=== PATIENT | male | born 1955 | race Caucasian/White ===

== ENCOUNTER 2024-06-25 20:44 | Inpatient (IN) | payer MEDICARE, MEDICAID, SELFPAY ==
--- NOTE | 2024-06-25 | ECG_ITS ---
Test Reason : TACHYCARDIA Blood Pressure : */* mmHG Vent. Rate : 138 BPM Atrial Rate : 136 BPM P-R Int : 168 ms QRS Dur : 86 ms QT Int : 404 ms P-R-T Axes : 43 34 60 degrees QTcB Int : 612 ms Undetermined rhythm , lot of artifact Not suitable for interpretation When compared with ECG of 23-May-2012 04:19, Poor data quality in current ECG precludes serial comparison Referred By: Erasto Sena Electronically Signed By: ASCENCION HOPSON
--- NOTE | ~2024-06-25 | XR_ITS ---
CLINICAL HISTORY: cough fever 1 view chest x-ray. Comparison: None Findings: There is pulmonary hypoinflation with bronchovascular crowding, mildly limiting this examination. Minimal left basilar opacities are present with minimal blunting of the left costophrenic angle. No focal consolidation identified within the right lung. No pneumothorax. No significant right pleural effusion identified. Heart size appears to be normal. The cardiac silhouette is obscured by the bilateral diaphragms related to the low lung volumes. Impression: 1. Pulmonary hypoinflation with bronchovascular crowding, limiting this examination. Minimal left basilar atelectasis versus infiltrates appear to be present with a possible small left pleural effusion. This document has been electronically signed by: Ze Sood MD on 06/25/2024 22:24:51
--- NOTE | ~2024-06-25 | CT_ITS ---
CLINICAL HISTORY: Coffee ground emesis, fever CT abdomen and pelvis without contrast Comparison: None Findings: This examination is mildly degraded by artifact related to the patient's arms, motion, structures external to the patient, and the patient's posterior spinal fusion hardware. Minimal nonspecific bibasilar pulmonary opacities visualized. Coronary artery calcifications and/or coronary artery stents are in place. Large volume ascites and edema present throughout the abdomen, limiting evaluation for acute inflammatory processes. The liver appears nodular in contour, consistent with cirrhosis. The gallbladder is surgically absent. Mild pneumobilia present. Spleen is at the upper limits of normal for size. The pancreas and bilateral adrenal glands are unremarkable in appearance. Calcifications are identified near the renal gisella bilaterally which may represent vascular calcifications. No hydronephrosis identified. No bowel obstruction. No free intraperitoneal air identified. Mildly limited evaluation of the bowel on this examination given the lack of IV contrast, adjacent fluid, and bowel underdistention. Colonic diverticulosis present. There is diffuse body wall edema. A Smith catheter is in place within the bladder lumen. Bladder is underdistended, limiting its evaluation. Small focus of gas present within the bladder lumen, likely related to the Smith catheter. Scattered calcifications are identified of the expected location of the prostate gland. Nonvisualization of the appendix. No acute fracture visualized. Posterior spinal fusion hardware in place of the L3 through S1 vertebral levels. IMPRESSION: 1. Mildly limited examination as described above. There is cirrhosis with generalized 3rd spacing of fluid, including large volume ascites and edema throughout the intra-abdominal compartment and body wall soft tissues. These findings limit evaluation for acute inflammatory processes. 2. Colonic diverticulosis. 3. Mild pneumobilia, possibly related to recent intervention or prior sphincterotomy. Alternatively, infection may produce a similar appearance. Clinical correlation is advised. This document has been electronically signed by: Ze Sood MD on 06/26/2024 00:18:16
[2024-06-25 20:53] VITALS: BP 135/77; BP 94/39; PULSE 130; PULSE 133; RESP 45; O2SAT 92; O2SAT 98; BMI 26.8
[2024-06-25 21:04] VITALS: TEMP 39.5
--- NOTE | 2024-06-25 21:06 | ED.AMS ---
HPI - Altered Mental Status General Chief Complaint: Altered Mental Status Stated Complaint: sepsis alert, AMS, Fast HR, Warm to tocuch Time Seen by Provider: 06/25/24 21:05 History of Present Illness ED Provider: Alli Reyes MD HPI narrative: [age] male [facility] from [facility] with fever altered mentation sounds ago abrupt onset. He had been vomiting and my nurse tells me upon arrival he required nasal cannula oxygen supplementation he does not normally use this. Temp 103.1 degrees tachy 122. History limited from the patient secondary to mental status possible underlying cognitive impairment. Related Data Home Medications ?Medication ?Instructions ?Recorded ?Confirmed acetaminophen 325 mg tablet 650 mg PO Q6H PRN Fever Or Pain 06/26/24 06/26/24 apixaban 5 mg tablet 5 mg PO BID 06/26/24 06/26/24 atorvastatin 10 mg tablet 10 mg PO DAILY 06/26/24 06/26/24 baclofen 5 mg tablet 5 mg PO TID 06/26/24 06/26/24 bisacodyl 10 mg rectal suppository 10 mg MA DAILY PRN Constipation 06/26/24 06/26/24 cholestyramine (with sugar) 4 gram 4 g PO DAILY 06/26/24 06/26/24 oral powder dextrose 40 % oral gel (Glucose 10 g PO Q15M PRN Hypoglycemia 06/26/24 06/26/24 Gel) escitalopram oxalate 20 mg tablet 20 mg PO DAILY 06/26/24 06/26/24 (Lexapro) finasteride 5 mg tablet 5 mg PO DAILY 06/26/24 06/26/24 folic acid 1 mg tablet 1 mg PO DAILY 06/26/24 06/26/24 gabapentin 100 mg capsule 200 mg PO BID 06/26/24 06/26/24 glucagon 1 mg solution for 1 mg subcut Q20M PRN Hypoglycemia 06/26/24 06/26/24 injection lactulose 10 gram/15 mL oral 10 g PO Q12H PRN Constipation 06/26/24 06/26/24 solution magnesium hydroxide 400 mg/5 mL 30 ml PO DAILY PRN Constipation 06/26/24 06/26/24 oral suspension (Milk of Magnesia) magnesium oxide 400 mg PO DAILY 06/26/24 06/26/24 metformin 850 mg tablet 850 mg PO BIDWM 06/26/24 06/26/24 midodrine 10 mg tablet 10 mg PO TIDWM 06/26/24 06/26/24 mirtazapine 15 mg tablet (Remeron) 22.5 mg PO BEDTIME 06/26/24 06/26/24 multivitamin 1 tab PO DAILY 06/26/24 06/26/24 pantoprazole 20 mg tablet,delayed 20 mg PO DAILY@0630 06/26/24 06/26/24 release polyvinyl alcohol 1.4 % eye drops 1 drp ophthalmic (eye) QID 06/26/24 06/26/24 sodium phosphates 19 gram-7 118 ml MA DAILY PRN Constipation 06/26/24 06/26/24 gram/118 mL enema (Fleet Enema) tamsulosin 0.4 mg capsule (Flomax) 0.8 mg PO BEDTIME 06/26/24 06/26/24 wound dressings (Triad Wound 1 appl topical TID 06/26/24 06/26/24 Dressing paste) Allergies Allergy/AdvReac Type Severity Reaction Status Date / Time No Known Allergies Allergy Unverified 06/25/24 20:58 [facility] Past Medical History Medical History Chronic indwelling Smith catheter Cirrhosis of liver with ascites Hepatitis C Social History Social History Household Members: Unknown / Unable to assess Alcohol intake: former Patient Tobacco Use Status: Tobacco use Unknown service: No Physical Exam ED Vital Signs: Vital Signs - 24 hr 06/25/24 22:28 06/25/24 22:43 Temperature 99.8 F Pulse Rate 121 H 119 H Respiratory Rate 28 H Blood Pressure 104/56 L 107/56 L Pulse Oximetry 95 95 Oxygen Delivery Method Room Air Room Air BMI result Body Mass Index 26.8 Const Other: EXAM: Gen: alert, pale chronically ill-appearing dried vomitus around the mouth. hemiparesis right side occasional tremor and spastic paresis Head: Atraumatic Eyes: Anicteric, Normal conjunctiva. ENT: Dry oral mucosa, pale Neck: Supple. Respiratory: mild tachypnea rate around 30No distress.Clear to auscultation bilaterally, symmetric chest expansion, No wheeze, rales, ronchi. Cardiovascular: Regular rate and rhythm. No murmurs or rub. Well perfused periphery, warm extremities. No edema. Abdominal: surgical scars remote appearing, significant abdominal distention and positive fluid wave tender with palpation. No bruising No palpable masses or obvious organomegaly. no guarding, no rebound tenderness or other peritoneal findings. Neuro: Alert. Gross movement of all extremities intact. Vital signs: See flowsheet Medications Administered Generic Name Dose Route Start Last Admin Trade Name Freq PRN Reason Stop Dose Admin Apixaban 5 mg 06/26/24 09:00 06/26/24 10:58 Apixaban 5 Mg Tablet PO 5 mg BID LOTTIE Administration Finasteride 5 mg 06/26/24 09:00 06/26/24 10:58 Finasteride 5 Mg Tablet PO 5 mg DAILY LOTTIE Administration Lactated Ringer's 1,000 mls @ 100 mls/hr 06/25/24 23:45 06/26/24 10:58 Lr IVCONT 100 mls/hr .Q10H LOTTIE Administration Piperacillin Sod/Tazobactam 50 mls @ 100 mls/hr 06/26/24 06:00 06/26/24 18:38 Sod 2.25 gm/ Sodium Chloride IV Infused Q6H LOTTIE Infusion Lactulose 20 gm 06/26/24 09:00 06/26/24 10:58 Lactulose 20 Gm/30 Ml Solution PO 20 gm BID LOTTIE Administration Midodrine 10 mg 06/26/24 09:00 06/26/24 16:40 Midodrine Hcl 10 Mg Tablet PO 10 mg TID LOTTIE Administration Pantoprazole Sodium 40 mg 06/26/24 16:30 06/26/24 16:40 Pantoprazole Sodium 40 Mg/10 Ml Vial IVPUSH 40 mg BID@0630,1630 LOTTIE Administration Sodium Chloride 3 ml 06/26/24 00:00 06/26/24 16:41 0.9 % Sodium Chloride Flush 3 Ml Syringe IVFLUSH Not Given QSHIFT LOTTIE Discontinued Medications Generic Name Dose Route Start Last Admin Trade Name Darciq PRN Reason Stop Dose Admin Heparin Sodium (Porcine) 5,000 unit 06/25/24 23:45 06/26/24 01:36 Heparin Sodium,Porcine 5,000 Unit/Ml Vial SUBCUT 5,000 unit Q12H LOTTIE Administration Piperacillin Sod/Tazobactam 50 mls @ 100 mls/hr 06/25/24 21:05 02/01/25 22:27 Sod 3.375 gm/ Sodium Chloride IV 06/25/24 21:34 Infused ONCE ONE Infusion Vancomycin HCl 1,500 mg/ 500 mls @ 333.333 mls/hr 06/25/24 21:05 06/25/24 23:40 Sodium Chloride IV 06/25/24 22:34 Infused ONCE ONE Infusion Sodium Chloride 2,400 mls @ 2,400 mls/hr 06/25/24 21:05 06/25/24 22:20 Ns 30 ml/kg infuse over 1 hr (2400 ml) 06/25/24 22:04 Infused IV Infusion .Q1H STA Acetaminophen 1,000 mg in 100 mls @ 400 mls/hr 06/25/24 21:44 06/25/24 22:28 Ofirmev IV 06/25/24 21:58 Infused ONCE ONE Infusion Sodium Chloride 1,000 mls @ 999 mls/hr 06/26/24 00:45 06/26/24 02:33 Ns IV 06/26/24 01:45 Infused .Q1H1M LOTTIE Infusion Albumin Human 100 mls @ 100 mls/hr 06/26/24 08:00 06/26/24 11:13 Kedbumin 25 % IV 06/26/24 09:59 Infused Q1H LOTTIE Infusion Lidocaine/Epinephrine 10 ml 06/25/24 21:26 06/25/24 21:46 Lidocaine Hcl 1%/Epi 1:100,000 10 Ml Vial INFILTRATI 06/25/24 21:27 10 ml ONCE ONE Administration Pantoprazole Sodium 80 mg 06/25/24 21:59 06/25/24 22:04 Pantoprazole Sodium 40 Mg/10 Ml Vial IVPUSH 06/25/24 22:00 80 mg ONCE ONE Administration Sodium Zirconium Cyclosilicate 5 gm 06/26/24 00:01 06/26/24 00:34 Sodium Zirconium Cyclosilicate 5 Gm Powd.Pack PO 06/26/24 00:02 5 gm ONCE ONE Administration Medical Decision Making Medical Decision Making MDM Narrative: 68 male with hep C, cirrhosis sent from [facility] for vomiting episode after which he apparently appeared slightly altered transiently but he has returned to his baseline of oriented x3. 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 He is febrile tachypneic. Tachypnea has improved after paracentesis which we did not only to relieve mild tachypnea but also for diagnostic purposes in the setting of severe sepsis. Lactate is 5.3 this could be secondary to severe sepsis and/or lack of hepatic clearance given this cirrhosis. Broad-spectrum antibiotics initiated, 30 cc/kg fluid bolus initiated. Indwelling Smith appears chronic sniff RN feels this is been a longstanding chronic Smith there appears to be sediment in the urine I feel this is likely cause. Chest x-ray no focal infiltrates low lung volumes probably secondary to the ascites. [place] culture Admission/Observation Consideration of admission/observation: Escalation of care including admission/observation considered Consult Healthcare Provider Management of the patient was discussed with: Hospitalist Lab Data MDM Lab Attestation statement: I reviewed the patient's lab results. 06/26/24 04:33 06/26/24 04:33 Labs: Lab Results 06/25/24 06/25/24 06/25/24 Range/Units 21:04 21:10 22:22 WBC 15.6 H (4.8-10.8) X10*3/uL RBC 3.15 L (4.60-5.80) X10*6/uL Hgb 8.8 L (14.0-18.0) g/dl Hct 27.7 L (42.0-52.0) % MCV 87.9 (80.0-98.0) fL MCH 27.9 (27.0-33.0) pg MCHC 31.8 (31.0-36.0) g/dl RDW 16.3 H (11.0-16.0) % Plt Count 242 (160-400) X10*3/uL MPV 9.7 (9.4-12.4) fL Immature Gran % (Auto) 0.8 H (0.0-0.4) % Neut % (Auto) 88.2 H (45-73) % Lymph % (Auto) 4.4 L (20-40) % Hood % (Auto) 5.1 (2-11) % Eos % (Auto) 1.2 (0-4) % Baso % (Auto) 0.3 (0-2) % Lymph # (Auto) 0.7 L (1.2-4.9) X10*3/uL Hood # (Auto) 0.8 (0.1-1.2) X10*3/uL Eos # (Auto) 0.2 (0.0-0.4) X10*3/uL Baso # (Auto) 0.0 (0.0-0.2) X10*3/uL Abs Immat Gran (auto) 0.13 H (0.00-0.03) X10*3/uL Absolute Neuts (auto) 13.8 H (2.0-8.3) x10*3/uL Absolute Nucleated RBC 0.000 (0.0-0.012) X10*3/uL Nucleated RBC % (auto) 0.0 (0.0-0.2) /100WBC Sodium 137 (135-145) mmol/L Potassium 5.5 H (3.3-5.1) mmol/L Chloride 107 (96-108) mmol/L Carbon Dioxide 16 L (22-29) mmol/L Anion Gap 20 (12-20) BUN 48 H (9-16) mg/dL Creatinine 1.61 H (0.5-1.4) mg/dL Estim Creat Clear Calc 42.4 Estimated GFR 43 Random Glucose 163 H (60-115) mg/dL Lactic Acid 5.3 H* (0.5-2.0) mmol/L Calcium 8.7 (8.4-10.2) mg/dL Total Bilirubin 0.3 (0.0-1.0) mg/dL AST 31 (5-37) U/L ALT 14 (0-40) U/L Alkaline Phosphatase 65 (39-117) U/L B-Natriuretic Peptide 286 H (<100) pg/mL Total Protein 6.9 (6.5-8.0) g/dL Albumin 2.7 L (3.5-5.0) g/dL Urine Color Yellow Urine Appearance Turbid Urine pH TNP Ur Specific [place] TNP Urine Protein TNP Urine Glucose (UA) TNP Urine Ketones TNP Urine Blood TNP Urine Nitrite TNP Ur Leukocyte Esterase TNP Urine RBC 11-20 H (0-2) /HPF Urine WBC 6-10 H (0-5) /HPF Ur Squamous Epith Cells 0-2 (0-2) /HPF Other Crystals Present Urine Bacteria 4+ (None Seen) Hyaline Casts 0-2 (0-2) /LPF Peritoneal WBC 0.103 X10*3/uL Peritoneal RBC < 0.002 X10*6/uL Periton Neutrophils 1 % Periton Lymphocytes 35 % Peritoneal Monocytes 12 % Peritoneal Other Cells 52 % Influenza Type A (PCR) NEGATIVE (Negative) Influenza Type B (PCR) NEGATIVE (Negative) RSV RNA Qual (PCR) NEGATIVE (Negative) SARS-CoV-2 RNA (RT-PCR) NEGATIVE (Negative) Independent Interpretation I performed an independent interpretation of an: EKG and Plain X-Ray ( low lung volumes no infiltrate no effusion) Interpretation: limited assessment of the ECG due to severe tremor and tachycardia this can be repeated Radiology Impression Discussion of test interpretation with radiology: I have reviewed the radiologist's reading. Independent Historian Clinical information obtained from an independent historian. History obtained from or confirmed by: Other ( [facility] nurse, paperwork from [facility] facility) Chronic Conditions Patient?s care impacted by: Other ( liver disease, stroke) Procedures Procedure Narrative Procedure Narrative: EMERGENCY ULTRASOUND INTERPRETATION-Point of Care Trauma (FAST) Limited AbdominalChest Ultrasound [This study was ordered, performed, and interpreted by myself. The study reveals: Impression: -Peritoneum: NO FREE FLUID -Pleural space: no B linesPOSITIVE LUNG SLIDING, NOT CONSISTENT WITH PNEUMOTHORAX.] [Indication: sepsis and suspected anasarca Fluid (FAST Views): -Hepatorenal: positive -Perisplenic: positive -Retrovesical/Pelvic: positive Other views: -Right Pleural 2ICS: POSITIVE SLIDING no B lines -Left Pleural 2ICS: POSITIVE SLIDING no B lines Performed by: Alli Reyes MD Images were stored on EMR through [employer] image archive software. CPT: 64450,96733] Critical Care Time Critical Care Time Attestation: ED Critical Care: 45 Authorized and Performed by: Alli Reyes MD Total critical care time: Approximately 80 Due to a high probability of clinically significant, life threatening deterioration, the patient required my highest level of preparedness to intervene emergently and I personally spent this critical care time directly and personally managing the patient. This critical care time included obtaining a history; examining the patient; pulse oximetry; ordering and review of studies; arranging urgent treatment with development of a management plan; evaluation of patient's response to treatment; frequent reassessment; and, discussions with other providers. This critical care time was performed to assess and manage the high probability of imminent, life-threatening deterioration that could result in multi-organ failure. It was exclusive of separately billable procedures and treating other patients and teaching time. Discharge Plan Discharge Clinical Impression: UTI (urinary tract infection) Patient Disposition: Admitted As Inpatient Interventions: Admission Worksheet (ED) Last Done: 06/26/24 07:27 Discharge Date/Time: 06/26/24 08:03
[2024-06-25 21:10] LABS: MANUAL DIFF FLAG NO
--- NOTE | 2024-06-25 21:15 | PC.NURSE ---
provder at bed side, doing abd taping, abouts 4000cc drained
--- OUTSIDE RECORDS SUMMARY | 2024-06-25 21:16 | XMS_ITS | Encounter Summary ---
Author Organization [facility] Address [address] [place] [address] Care Team Providers Care Dairy Consultant Name Role Phone Priscilla Doan MD Primary Care Provider + Encounter Details Date Type Department Care Team (Late st Contact Info) Description 06/18/2024 Lab Requisition [facility] - Main Lab [address] [place] [address] Priscilla Doan MD [address] [address] Unspecified viral hepatitis C 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 Social History Tobacco Use Types Packs/Day Years Used Date Smoking Tobacco: Never Assessed Sex and Gender Information Value Date Recorded Sex Assigned at Not on file Gender Identity Not on file Sexual Orientation Not on file documented as of this encounter Plan of Treatment Not on file documented as of this encounter Procedures Procedure Name Priority Date/Time Associated Diagnosis Comments COMPLETE BLOOD COUNT Routine 06/20/2024 7:40 AM EST Unspecified viral hepatitis C 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 COMPREHENSIVE METABOLIC PANEL Routine 06/20/2024 7:40 AM EST Unspecified viral hepatitis C 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 documented in this encounter Results * (ABNORMAL) Comprehensive metabolic panel (06/20/2024 7:40 AM EST) Sodium 135 133 - 145 mmol/L LAB CHEMISTRY METHOD 06/20/2024 2:17 PM EST [facility] Potassium 5.1 3.5 - 5.5 mmol/L LAB CHEMISTRY METHOD 06/20/2024 2:17 PM EST [facility] Chloride 104 96 - 110 mmol/L LAB CHEMISTRY METHOD 06/20/2024 2:17 PM EST [facility] CO2 23 21 - 32 mmol/L LAB CHEMISTRY METHOD 06/20/2024 2:17 PM [facility] Anion Gap 8 3 - 11 LAB CHEMISTRY METHOD 06/20/2024 2:17 PM [facility] Glucose 84 70 - 100 mg/dL LAB CHEMISTRY METHOD 06/20/2024 2:17 PM [facility] BUN 42(H) 5 - 25 mg/dL LAB CHEMISTRY METHOD 06/20/2024 2:17 PM [facility] Creatinine 1.27 0.70 - 1.30 mg/dL LAB CHEMISTRY METHOD 06/20/2024 2:17 PM [facility] eGFR 62 >=60 mL/min/1. 73m2 LAB CHEMISTRY METHOD 06/20/2024 2:17 PM [facility] Comment:Calculation based on the??Chronic Kidney Disease Epidemiology Collaboration (CKD-EPI) equation refit??without adjustment for race. BUN/Creatinine Ratio 33.1 LAB CHEMISTRY METHOD 06/20/2024 2:17 PM [facility] Calcium 8.7 8.5 - 10.5 mg/dL LAB CHEMISTRY METHOD 06/20/2024 2:17 PM [facility] AST (SGOT) 24 10 - 42 unit/L LAB CHEMISTRY METHOD 06/20/2024 2:17 PM [facility] ALT (SGPT) 25 10 - 60 unit/L LAB CHEMISTRY METHOD 06/20/2024 2:17 PM [facility] Alkaline Phosphatase 78 42 - 121 unit/L LAB CHEMISTRY METHOD 06/20/2024 2:17 PM [facility] Total Protein 5.8(L) 6.0 - 8.0 g/dL LAB CHEMISTRY METHOD 06/20/2024 2:17 PM [facility] Albumin 2.0(L) 3.2 - 5.0 g/dL LAB CHEMISTRY METHOD 06/20/2024 2:17 PM [facility] Total Bilirubin 0.3 0.0 - 1.4 mg/dL LAB CHEMISTRY METHOD 06/20/2024 2:17 PM EST [facility] Blood Venous blood specimen / Unknown Venipuncture / Unknown 06/20/2024 7:40 AM EST 06/20/2024 12:03 PM EST Priscilla Doan MD LAB BLOOD ORDERA BLES [facility] [address] [place] [address], * (ABNORMAL) Complete blood count (06/20/2024 7:40 AM EST) WBC 6.2 4.8 - 10.8 K/mcL LAB HEMETOLOGY METHOD 06/20/2024 1:18 PM [facility] RBC 3.20(L) 4.50 - 5.50 M/mcL LAB HEMETOLOGY METHOD 06/20/2024 1:18 PM [facility] Hemoglobin 8.7(L) 13.5 - 17.5 g/dL LAB HEMETOLOGY METHOD 06/20/2024 1:18 PM [facility] Hematocrit 28.8(L) 42.0 - 54.0 % LAB HEMETOLOGY METHOD 06/20/2024 1:18 PM [facility] MCV 91.1 79.0 - 98.0 FL LAB HEMETOLOGY METHOD 06/20/2024 1:18 PM [facility] MCH 27.5 27.0 - 32.0 pcg LAB HEMETOLOGY METHOD 06/20/2024 1:18 PM [facility] MCHC 30.2(L) 32.0 - 37.0 g/dL LAB HEMETOLOGY METHOD 06/20/2024 1:18 PM [facility] RDW 16.2(H) 11.0 - 15.0 % LAB HEMETOLOGY METHOD 06/20/2024 1:18 PM EST [facility] Platelets 252 130 - 400 K/mcL LAB HEMETOLOGY METHOD 06/20/2024 1:18 PM EST [facility] MPV 10.1 7.0 - 11.0 FL LAB HEMETOLOGY METHOD 06/20/2024 1:18 PM EST [facility] NRBC 0.0 <1.0 % LAB HEMETOLOGY METHOD 06/20/2024 1:18 PM EST [facility] NRBC Absolute 0.00 <0.10 K/mcL LAB HEMETOLOGY METHOD 06/20/2024 1:18 PM EST [facility] Blood Venous blood specimen / Unknown Venipuncture / Unknown 06/20/2024 7:40 AM EST 06/20/2024 12:03 PM EST Priscilla Doan MD LAB BLOOD ORDERA BLES [facility] [address] [place] [address], documented in this encounter Visit Diagnoses Diagnosis Unspecified viral hepatitis C 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 documented in this encounter Care Teams Dairy Consultant Relationship Specialty Start Date End Date Priscilla Doan MD [address] [place] [id number] PCP - General Family Medicine 06/18/24 documented as of this encounter
--- OUTSIDE RECORDS SUMMARY | 2024-06-25 21:16 | XMS_ITS | Encounter Summary ---
Author Organization [facility] Address [address] [place] [address] Care Team Providers Care Assistant Administrator Name Role Phone Priscilla Doan MD Primary Care Provider + Encounter Details Date Type Department Care Team (Late st Contact Info) Description 06/10/2024 Lab Requisition [facility] - Main Lab [address] [place] [address] Priscilla Doan MD [address] [address] Unspecified viral hepatitis C 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 [...] Associated Diagnosis Comments COMPLETE BLOOD COUNT Routine 06/13/2024 9:56 AM EST Unspecified viral hepatitis C 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 COMPREHENSIVE METABOLIC PANEL Routine 06/13/2024 9:56 AM EST Unspecified viral hepatitis C 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 documented in this encounter Results * (ABNORMAL) Comprehensive metabolic panel (06/13/2024 9:56 AM EST) Sodium 136 133 - 145 mmol/L LAB CHEMISTRY METHOD 06/13/2024 2:19 PM EST [facility] Potassium 5.0 3.5 - 5.5 mmol/L LAB CHEMISTRY METHOD 06/13/2024 2:19 PM EST [facility] Chloride 104 96 - 110 mmol/L LAB CHEMISTRY METHOD 06/13/2024 2:19 PM EST [facility] CO2 25 21 - 32 mmol/L LAB CHEMISTRY METHOD 06/13/2024 2:19 PM [facility] Anion Gap 7 3 - 11 LAB CHEMISTRY METHOD 06/13/2024 2:19 PM [facility] Glucose 96 70 - 100 mg/dL LAB CHEMISTRY METHOD 06/13/2024 2:19 PM [facility] BUN 39(H) 5 - 25 mg/dL LAB CHEMISTRY METHOD 06/13/2024 2:19 PM [facility] Creatinine 1.42(H) 0.70 - 1.30 mg/dL LAB CHEMISTRY METHOD 06/13/2024 2:19 PM [facility] eGFR 54(L) >=60 mL/min/1. 73m2 LAB CHEMISTRY METHOD 06/13/2024 2:19 PM [facility] Comment:Calculation based on the??Chronic Kidney Disease Epidemiology Collaboration (CKD-EPI) equation refit??without adjustment for race. BUN/Creatinine Ratio 27.5 LAB CHEMISTRY METHOD 06/13/2024 2:19 PM [facility] Calcium 9.1 8.5 - 10.5 mg/dL LAB CHEMISTRY METHOD 06/13/2024 2:19 PM [facility] AST (SGOT) 65(H) 10 - 42 unit/L LAB CHEMISTRY METHOD 06/13/2024 2:19 PM [facility] ALT (SGPT) 69(H) 10 - 60 unit/L LAB CHEMISTRY METHOD 06/13/2024 2:19 PM [facility] Alkaline Phosphatase 140(H) 42 - 121 unit/L LAB CHEMISTRY METHOD 06/13/2024 2:19 PM [facility] Total Protein 5.9(L) 6.0 - 8.0 g/dL LAB CHEMISTRY METHOD 06/13/2024 2:19 PM [facility] Albumin 2.0(L) 3.2 - 5.0 g/dL LAB CHEMISTRY METHOD 06/13/2024 2:19 PM [facility] Total Bilirubin 0.3 0.0 - 1.4 mg/dL LAB CHEMISTRY METHOD 06/13/2024 2:19 PM [facility] Blood Venous blood specimen / Unknown Venipuncture / Unknown 06/13/2024 9:56 AM EST 06/13/2024 12:25 PM EST Priscilla Doan MD LAB BLOOD ORDERA BLES [facility] [address] [place] [address], * (ABNORMAL) Complete blood count (06/13/2024 9:56 AM EST) WBC 6.1 4.8 - 10.8 K/mcL LAB HEMETOLOGY METHOD 06/13/2024 1:31 PM [facility] RBC 3.40(L) 4.50 - 5.50 M/mcL LAB HEMETOLOGY METHOD 06/13/2024 1:31 PM [facility] Hemoglobin 9.3(L) 13.5 - 17.5 g/dL LAB HEMETOLOGY METHOD 06/13/2024 1:31 PM [facility] Hematocrit 30.0(L) 42.0 - 54.0 % LAB HEMETOLOGY METHOD 06/13/2024 1:31 PM [facility] MCV 88.8 79.0 - 98.0 FL LAB HEMETOLOGY METHOD 06/13/2024 1:31 PM [facility] MCH 27.5 27.0 - 32.0 pcg LAB HEMETOLOGY METHOD 06/13/2024 1:31 PM [facility] MCHC 31.0(L) 32.0 - 37.0 g/dL LAB HEMETOLOGY METHOD 06/13/2024 1:31 PM [facility] RDW 16.5(H) 11.0 - 15.0 % LAB HEMETOLOGY METHOD 06/13/2024 1:31 PM EST [facility] Platelets 254 130 - 400 K/mcL LAB HEMETOLOGY METHOD 06/13/2024 1:31 PM EST [facility] MPV 9.8 7.0 - 11.0 FL LAB HEMETOLOGY METHOD 06/13/2024 1:31 PM EST [facility] NRBC 0.0 <1.0 % LAB HEMETOLOGY METHOD 06/13/2024 1:31 PM [facility] NRBC Absolute 0.00 <0.10 K/mcL LAB HEMETOLOGY METHOD 06/13/2024 1:31 PM [facility] Blood Venous blood specimen / Unknown Venipuncture / Unknown 06/13/2024 9:56 AM EST 06/13/2024 12:25 PM EST Priscilla Doan MD LAB BLOOD ORDERA BLES [facility] [address] [place] [address], documented in this encounter Visit Diagnoses Diagnosis Unspecified viral hepatitis C 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 documented in this encounter Care Teams Assistant Administrator Relationship Specialty Start Date End Date Priscilla Doan MD [address] [place] [id number] PCP - General Family Medicine 06/18/24 documented as of this encounter
--- OUTSIDE RECORDS SUMMARY | 2024-06-25 21:16 | XMS_ITS | Clinical Summary ---
Author Organization [address] [facility] Address [address] [place] [address] Phone Care Team Providers Care Air Brake Rigger Name Role Phone Priscilla Doan MD Primary Care Provider + Encounters Date Type Department Care Team Description 06/24/2024 Lab Requisition [facility] Lab [address] [place] [phone] Priscilla Doan MD Unspecified viral hepatitis C 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 06/23/2024 Lab Requisition [facility] Lab [address] [place] [phone] Priscilla Doan MD Unspecified cirrhosis of liver (CMS/HCC) 06/18/2024 Lab Requisition [facility] Lab [address] [place] [phone] Priscilla Doan MD Unspecified viral hepatitis C 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 06/10/2024 Lab Requisition [facility] Lab [address] [place] [phone] Priscilla Doan MD Unspecified viral hepatitis C 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 from Last 3 Months Social History Tobacco Use Types Packs/Day Years Used Date Smoking Tobacco: Never Assessed Sex and Gender Information Value Date Recorded Sex Assigned at Not on file Gender Identity Not on file Sexual Orientation Not on file Plan of Treatment Health Maintenance Due Date Last Done Comments Pneumococcal Vaccine: 65+ Years (1 of 2 - PCV) 07/28/1961 DTaP,Tdap,and Td Vaccines (1 - Tdap) 07/28/1974 Hepatitis A Vaccines (1 of 2 - Risk 2-dose series) 07/28/1974 Zoster Vaccines (1 of 2) 07/28/2005 Hepatitis B Vaccines (1 of 3 - Risk 3-dose series) 2015 RSV Immunization Patients 60 + Years Old (1 - Risk 60-74 years 1-dose series) 2015 COVID-19 Vaccine (1 - 2023-2 5 season) 2024 Influenza Vaccine (#1) 2024 Abdominal Aortic Aneurysm (AAA) Screen 06/11/2024 Cholesterol Screening (Lipid Panel) 06/11/2024 Colorectal Cancer Screening: Colonoscopy 06/11/2024 Depression Screening 06/11/2024 Falls Risk Assessment 06/11/2024 Hepatitis C Screening 06/11/2024 Medicare Annual Wellness Visit 06/11/2024 Social Influencers of Health Screening 06/11/2024 Hypertension/CHF/CAD Annual BMP Blood Test 06/20/2025 06/20/2024, 06/13/2024 HIB Vaccines Aged Out No longer eligi ble based on patient's age to complete this topic HPV Vaccines Aged Out No longer eligi ble based on patient's age to complete this topic IPV Vaccines Aged Out No longer eligi ble based on patient's age to complete this topic MMR Vaccines Aged Out No longer eligi ble based on patient's age to complete this topic Meningococcal ACWY Vaccine Aged Out N o longer eligible based on patient's age to complete this topic RSV Immunization Patients Under 20 months Aged Out No longer eligible b ased on patient's age to complete this topic Varicella Vaccines Aged Out No longer eligible based on patient's age to complete this topic Procedures Procedure Name Priority Date/Time Associated Diagnosis Comments AMMONIA Routine 06/23/2024 7:56 AM EST Unspecified cirrhosis of liver (CMS/HCC) COMPREHENSIVE METABOLIC PANEL Routine 06/20/2024 7:40 AM EST Unspecified viral hepatitis C 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 COMPLETE BLOOD COUNT Routine 06/20/2024 7:40 AM EST Unspecified viral hepatitis C 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 COMPREHENSIVE METABOLIC PANEL Routine 06/13/2024 9:56 AM EST Unspecified viral hepatitis C 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 COMPLETE BLOOD COUNT Routine 06/13/2024 9:56 AM EST Unspecified viral hepatitis C 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 from Last 3 Months Results * Ammonia (06/23/2024 7:56 AM EST) Pathologist [facility] Ammonia 18 11 - 35 mcmol/L LAB CHEMISTRY METHOD 06/23/2024 9:33 AM EST [facility] Blood Venous blood specimen / Unknown Venipuncture / Unknown 06/23/2024 7:56 AM EST 06/23/2024 9:05 AM EST Priscilla Doan MD LAB BLOOD ORDERA BLES [facility] LAB [address] [place] [address], * (ABNORMAL) Complete blood count (06/20/2024 7:40 AM EST) Only the most recent of2 resultswithin the time period is included. [facility] WBC 6.2 4.8 - 10.8 K/mcL LAB HEMETOLOGY METHOD 06/20/2024 1:18 PM [facility] RBC 3.20(L) 4.50 - 5.50 M/mcL LAB HEMETOLOGY METHOD 06/20/2024 1:18 PM [facility] Hemoglobin 8.7(L) 13.5 - 17.5 g/dL LAB HEMETOLOGY METHOD 06/20/2024 1:18 PM [facility] Hematocrit 28.8(L) 42.0 - 54.0 % LAB HEMETOLOGY METHOD 06/20/2024 1:18 PM [facility] MCV 91.1 79.0 - 98.0 FL LAB HEMETOLOGY METHOD 06/20/2024 1:18 PM [facility] MCH 27.5 27.0 - 32.0 pcg LAB HEMETOLOGY METHOD 06/20/2024 1:18 PM [facility] MCHC 30.2(L) 32.0 - 37.0 g/dL LAB HEMETOLOGY METHOD 06/20/2024 1:18 PM EST [facility] RDW 16.2(H) 11.0 - 15.0 % LAB HEMETOLOGY METHOD 06/20/2024 1:18 PM EST [facility] Platelets 252 130 - 400 K/mcL LAB HEMETOLOGY METHOD 06/20/2024 1:18 PM EST [facility] MPV 10.1 7.0 - 11.0 FL LAB HEMETOLOGY METHOD 06/20/2024 1:18 PM EST [facility] NRBC 0.0 <1.0 % LAB HEMETOLOGY METHOD 06/20/2024 1:18 PM EST [facility] NRBC Absolute 0.00 <0.10 K/mcL LAB HEMETOLOGY METHOD 06/20/2024 1:18 PM EST [facility] Blood Venous blood specimen / Unknown Venipuncture / Unknown 06/20/2024 7:40 AM EST 06/20/2024 12:03 PM EST Priscilla Doan MD LAB BLOOD ORDERA BLES [facility] [address] [place] [address], * (ABNORMAL) Comprehensive metabolic panel (06/20/2024 7:40 AM EST) Only the most recent of2 resultswithin the time period is included. Sodium 135 133 - 145 mmol/L LAB CHEMISTRY METHOD 06/20/2024 2:17 PM EST [facility] Potassium 5.1 3.5 - 5.5 mmol/L LAB CHEMISTRY METHOD 06/20/2024 2:17 PM EST [facility] Chloride 104 96 - 110 mmol/L LAB CHEMISTRY METHOD 06/20/2024 2:17 PM EST [facility] CO2 23 21 - 32 mmol/L LAB CHEMISTRY METHOD 06/20/2024 2:17 PM [facility] Anion Gap 8 3 - 11 LAB CHEMISTRY METHOD 06/20/2024 2:17 PM [facility] Glucose 84 70 - 100 mg/dL LAB CHEMISTRY METHOD 06/20/2024 2:17 PM [facility] BUN 42(H) 5 - 25 mg/dL LAB CHEMISTRY METHOD 06/20/2024 2:17 PM [facility] Creatinine 1.27 0.70 - 1.30 mg/dL LAB CHEMISTRY METHOD 06/20/2024 2:17 PM [facility] eGFR 62 >=60 mL/min/1. 73m2 LAB CHEMISTRY METHOD 06/20/2024 2:17 PM [facility] Comment:Calculation based on the??Chronic Kidney Disease Epidemiology Collaboration (CKD-EPI) equation refit??without adjustment for race. BUN/Creatinine Ratio 33.1 LAB CHEMISTRY METHOD 06/20/2024 2:17 PM [facility] Calcium 8.7 8.5 - 10.5 mg/dL LAB CHEMISTRY METHOD 06/20/2024 2:17 PM [facility] AST (SGOT) 24 10 - 42 unit/L LAB CHEMISTRY METHOD 06/20/2024 2:17 PM [facility] ALT (SGPT) 25 10 - 60 unit/L LAB CHEMISTRY METHOD 06/20/2024 2:17 PM [facility] Alkaline Phosphatase 78 42 - 121 unit/L LAB CHEMISTRY METHOD 06/20/2024 2:17 PM [facility] Total Protein 5.8(L) 6.0 - 8.0 g/dL LAB CHEMISTRY METHOD 06/20/2024 2:17 PM [facility] Albumin 2.0(L) 3.2 - 5.0 g/dL LAB CHEMISTRY METHOD 06/20/2024 2:17 PM [facility] Total Bilirubin 0.3 0.0 - 1.4 mg/dL LAB CHEMISTRY METHOD 06/20/2024 2:17 PM EST [facility] Blood Venous blood specimen / Unknown Venipuncture / Unknown 06/20/2024 7:40 AM EST 06/20/2024 12:03 PM EST Priscilla Doan MD LAB BLOOD ORDERA BLES [facility] [address] [place] [address], from Last 3 Months Care Teams Air Brake Rigger Relationship Specialty Start Date End Date Priscilla Doan MD [address] [place] [id number] PCP - General Family Medicine 06/18/24
--- OUTSIDE RECORDS SUMMARY | 2024-06-25 21:16 | XMS_ITS | Encounter Summary ---
Author Organization [facility] Address [address] [place] [address] Care Team Providers Care Bank Advisor Name Role Phone Priscilla Doan MD Primary Care Provider + Encounter Details Date Type Department Care Team (Late st Contact Info) Description 06/23/2024 Lab Requisition [facility] Lab [address] [place] [phone] Priscilla Doan MD [address] [address] Unspecified cirrhosis of liver (CMS/HCC) Social History Tobacco Use Types Packs/Day Years [...] AM EST Unspecified cirrhosis of liver (CMS/HCC) documented in this encounter Results * Ammonia (06/23/2024 7:56 AM EST) Ammonia 18 11 - 35 mcmol/L LAB CHEMISTRY METHOD 06/23/2024 9:33 AM EST [facility] Blood Venous blood specimen / Unknown Venipuncture / Unknown 06/23/2024 7:56 AM EST 06/23/2024 9:05 AM EST Priscilla Doan MD LAB BLOOD ORDERA BLES [facility] [address] [place] [address], documented in this encounter Visit Diagnoses Diagnosis Unspecified cirrhosis of liver (CMS/HCC) documented in this encounter Care Teams Bank Advisor Relationship Specialty Start Date End Date Priscilla Doan MD [address] [address] PCP - General Family Medicine 06/18/24 documented as of this encounter
--- OUTSIDE RECORDS SUMMARY | 2024-06-25 21:16 | XMS_ITS | Continuity of Care Document ---
Author Organization [facility] Address [address] [place] [phone]- Care Team Providers Care Double Needle Stitcher Name Role Phone Lee Prieto Primary Care Physician Encounter [facility] Date(s): 06/10/24 - 06/10/[address] [address]- Encounter Diagnosis Smith catheter problem(Final) - 06/10/24 Discharge Disposition: A-Transfer SNF Attending Physician: Shana Rowe MD Admitting Physician: Shana Rowe MD Referring Physician: Not on Staff, Referring MD Encounter Type: Disch ES Allergies, Adverse Reactions, Alerts No Known Medication Allergies Medications acetaminophen 325 mg oral tablet 650 mg, 2, tablet, By Mouth, Every 6 hours, PRN, # 30 tablet, Refills 0, Tot. Refills 0, Maintenance, Pain , Mild, 05/29/24 11:54:00 AM EST, Route to Pharmacy Electronically, [facility], Partial fill upon patient request if the prescription is for a schedule II opioid drug., 175.25, cm, 05/29/24 11:09:00 EST, Height, 81.1, kg, 05/26/24 21:01:00 EST, Dry Weight Start Date: 05/29/24 Status: Ordered Quantity: 30.0 Unit: tablet Repeat number: 1 apixaban 5 mg oral tablet = 5 mg, By Mouth, 2 times a day, to start 06/02, # 60 tablet, 0 Refills, Maintenance, 05/29/24 11:54:00 AM EST, Tablet, [facility], Partial fill upon patient request if the prescriptionis for a schedule II opioid drug., 175.25, cm, 05/29/24 11:09:00 EST, Height, 81.1, kg, 05/26/24 21:01:00 EST, Dry Weight Start Date: 05/29/24 Stop Date: 06/30/24 Status: Ordered Quantity: 60.0 Unit: tablet Repeat number: 1 atorvastatin 10 mg oral tablet 1 tablet = 10 mg, By Mouth, Daily, # 30 tablet, 0 Refills, Maintenance, 02/03/24 10:17:00 AM EDT, Tablet, [facility] #[id number], Partial fill upon patient request if the prescription is for a schedule IIopioid drug., 183, cm, 02/03/24 7:55:00 EDT, Height, 84.25, kg, 01/27/24 18:17:00 EDT, Dry Weight Start Date: 02/03/24 Status: Ordered Quantity: 30.0 Unit: tablet Repeat number: 1 baclofen 10 mg oral tablet 5 mg, 0.5, tablet, By Mouth, 3 times a day, # 45 tablet, Refills 0, Tot. Refills 0, Maintenance, 02/03/24 10:17:00 AM EDT, Route to Pharmacy Electronically, [facility]/pharmacy #[id number], Partial fill upon patient request if the prescription is for a schedule II opioid drug., 183, cm, 02/03/24 7:55:00 EDT, Height, 84.25, kg, 01/27/24 18:17:00 EDT, Dry Weight Start Date: 02/03/24 Status: Ordered Quantity: 45.0 Unit: tablet Repeat number: 1 Cholestyramine = 4 Gm, By Mouth, Daily, 0 Refills, Maintenance, 05/20/24 10:30:00 AM EST, Partial fill upon patient request if the prescription is for a schedule II opioid drug. Start Date: 05/20/24 Status: Ordered Repeat number: 1 Daily Ryland oral tablet 1 tablet, By Mouth, Daily, # 30 tablet, 0 Refills, Maintenance, 02/03/24 10:17:00 AM EDT, Tablet, [id number], Partial fill upon patient request if the prescription is for a schedule II opioid drug., 1 tablet By Mouth Daily, 183, cm, 02/03/24 7:55:00 EDT, Height, 84.25, kg, 01/27/24 18:17:00 EDT, Dry Weight Start Date: 02/03/24 Status: Ordered Quantity: 30.0 Unit: tablet Repeat number: 1 escitalopram 10 mg oral tablet 2 tablet = 20 mg, By Mouth, Daily, # 60 tablet, 0 Refills, Maintenance, 02/03/24 10:17:00 AM EDT, Tablet, [facility]/pharmacy #[id number], Partial fill upon patient request if the prescription is for a schedule IIopioid drug., 183, cm, 02/03/24 7:55:00 EDT, Height, 84.25, kg, 01/27/24 18:17:00 EDT, Dry Weight Start Date: 02/03/24 Status: Ordered Quantity: 60.0 Unit: tablet Repeat number: 1 finasteride 5 mg oral tablet 1 tablet = 5 mg, By Mouth, Daily, # 30 tablet, 0 Refills, Maintenance, 02/03/24 10:17:00 AM EDT, Tablet, [facility]/pharmacy #[id number], Partial fill upon patient request if the prescription is for a schedule II opioid drug., 183, cm, 02/03/24 7:55:00 EDT, Height, 84.25, kg, 01/27/24 18:17:00 EDT, Dry Weight Start Date: 02/03/24 Status: Ordered Quantity: 30.0 Unit: tablet Repeat number: 1 folic acid 1 mg oral tablet 1 mg, 1, tablet, By Mouth, Daily, # 30 tablet, Refills 0, Maintenance, 01/15/24 11:48:00 AM EDT, Partial fill upon patient request if the prescription is for a schedule II opioid drug. Start Date: 01/15/24 Status: Ordered Quantity: 30.0 Unit: tablet Repeat number: 1 gabapentin 100 mg oral capsule 200 mg, 2, capsule, By Mouth, 2 times a day, # 120 capsule, Refills 0, Tot. Refills 0, Maintenance,06/04/24 11:48:00 AM EST, Route to Pharmacy Electronically, [facility], Partial fill upon patient request if the prescription is for a schedule II opioid drug., 175.25, cm, 06/03/24 14:38 :00 EST, Height, 81.1, kg, 05/26/24 21:01:00 EST, Dry Weight Start Date: 06/04/24 Stop Date: 07/04/24 Status: Ordered Quantity: 120.0 Unit: capsule Repeat number: 1 lactulose 10 gm/15 ml oral syrup 15 mL = 10 Gm, By Mouth, 2 times a day, PRN Constipation, # 450 mL, 0 Refills, Maintenance, 02/02/2410:17:00 AM EDT, Syrup, [facility]acy [id number], Partial fill upon patient request if the prescription is for a schedule II opioid drug., 183, cm, 02/03/24 7:55:00 EDT, Height, 84.25, kg, 01/27/24 18:17:00 EDT, Dry Weight Start Date: 02/03/24 Status: Ordered Quantity: 450.0 Unit: mL Repeat number: 1 magnesium oxide 400 mg oral capsule 1 capsule = 400 mg, By Mouth, Daily, 0 Refills, Maintenance, 05/20/24 10:30:00 AM EST, Partial fillupon patient request if the prescription is for a schedule II opioid drug. Start Date: 05/20/24 Status: Ordered Repeat number: 1 metFORMIN 850 mg oral tablet 1 tablet = 850 mg, By Mouth, 2 times a day, # 60 tablet, 0 Refills, Maintenance, 02/03/24 10:16:00 AM EDT, Tablet, [facility] #[id number], Partial fill upon patient request if the prescription is for a schedule II opioid drug., 183, cm, 02/03/24 7:55:00 EDT, Height, 84.25, kg, 01/27/24 18:17:00 EDT, DryWeight Start Date: 02/03/24 Status: Ordered Quantity: 60.0 Unit: tablet Repeat number: 1 midodrine 5 mg oral tablet 10 mg, By Mouth, 3 times a day, # 30 tablet, Refills 0, Tot. Refills 0, Maintenance, 05/29/24 11:53:00 AM EST, Route to Pharmacy Electronically, [facility], Partial fill upon patient request if the prescription is for a schedule II opioid drug., 175.25, cm, 05/29/24 11:09:00 EST, Height, 81.1, kg, 05/26/24 21:01:00 EST, Dry Weight Start Date: 05/29/24 Status: Ordered Quantity: 30.0 Unit: tablet Repeat number: 1 mirtazapine 15 mg oral tablet 1.5 tablet = 22.5 mg, By Mouth, Daily at bedtime, # 45 tablet, 0 Refills, Maintenance, 02/03/24 10:17:00 AM EDT, Tablet, [facility] #[id number], Partial fill upon patient request if the prescription is for a schedule II opioid drug., 183, cm, 02/03/24 7:55:00 EDT, Height, 84.25, kg, 01/27/24 18:17:00 EDT, Dry Weight Start Date: 02/03/24 Status: Ordered Quantity: 45.0 Unit: tablet Repeat number: 1 pantoprazole 20 mg oral delayed release tablet = 20 mg, By Mouth, Daily, 0 Refills, Maintenance, 06/07/24 9:33:00 AM EST, EC Tablet Start Date: 06/07/24 Status: Ordered Repeat number: 1 Refresh Optive 1 drop, Eyes, Both, 4 times a day, 0 Refills, Maintenance, 05/20/24 10:31:00 AM EST, Partial fill upon patient request if the prescription is for a schedule II opioid drug. Start Date: 05/20/24 Status: Ordered Repeat number: 1 tamsulosin 0.4 mg oral capsule 0.8 mg, 2, capsule, By Mouth, Daily, # 60 capsule, Refills 0, Tot. Refills 0, Maintenance, 02/03/24 10:18:00 AM EDT, Route to Pharmacy Electronically, [facility]/pharmacy #[id number], Partial fill upon patient request if the prescription is for a schedule II opioid drug., 183, cm, 02/03/24 7:55:00 EDT, Height, 84.25, kg, 01/27/24 18:17:00 EDT, Dry Weight Start Date: 02/03/24 Status: Ordered Quantity: 60.0 Unit: capsule Repeat number: 1 traZODone 50 mg oral tablet 50 mg, 1, tablet, By Mouth, Daily at bedtime, # 30 tablet, Refills 0, Tot. Refills 0, Maintenance, 02/03/24 10:18:00 AM EDT, Route to Pharmacy Electronically, [facility]/pharmacy #[id number], Partial fill upon patient request if the prescription is for a schedule II opioid drug., 183, cm, 02/03/24 7:55:00 EDT, Height, 84.25, kg, 01/27/24 18:17:00 EDT, Dry Weight Start Date: 02/03/24 Status: Ordered Quantity: 30.0 Unit: tablet Repeat number: 1 Problem List Condition Confirmation Course Effective Dates Status H ealth Status Informant Acute kidney injury Confirmed 01/28/24 Active Anemia of chronic disease Confirmed 01/28/24 Active Ascites Confirmed 01/28/24 Active Collapse of right lung Confirmed Active Cirrhosis of liver Confirmed Active COVID-19 virus infection Confirmed 01/28/24 Active COVID-19 1 Confirmed 02/03/24 Active Dehydration Confirmed 01/28/24 Active Anasarca Confirmed Active History of cholecystectomy Confirmed Active Hyperlipidemia Confirmed Active Hypertension Confirmed Active Cognitive impairment Confirmed Active Mucus plugging of bronchi Confirmed 01/28/24 Active Pleural effusion, right Confirmed 01/28/24 Active History of stroke with residual effects Confirmed Active Hepatitis C Confirmed 01/28/24 Active 1Problem added by Discern Expert Vital Signs Most recent to oldest [Reference Range]: 1 2 Height 175 cm (06/10/24 1:28 PM) Oxygen Saturation [94-100 %] 93 % *L* (06/10/24 6:20 PM) 96 % (06/10/24 1:28 PM) Pulse Rate [55-90 bpm] 102 bpm *H* (06/10/24 6:20 PM) 105 bpm *H* (06/10/24 1:28 PM) Blood Pressure [90-138/55-84 mm Hg] 103/ 69mm Hg (06/10/24 6:20 PM) 105/75mm Hg (06/10/24 1:28 PM) Respiratory Rate [16-30 br/min] 20 br/mi n (06/10/24 6:20 PM) 29 br/min (06/10/24 1:28 PM) Temperature [96.8-100.4 DegF] 98.1 DegF (06/10/24 1:28 PM) Mode of Delivery (Oxygen) Room air (06/10/24 6:20 PM) Room air (06/10/24 1:28 PM) Blood pressure sites Arm, left (06/10/24 6:20 PM) Arm, left (06/10/24 1:28 PM) Temperature Route Oral (06/10/24 1:28 PM) Note * Shana Rowe MD: PERFORM, SIGN, VERIFY Event Display: Patient Education Handout Authored Date: [id number] * Shana Rowe MD: PERFORM Event Display: Patient Education Leaflets Authored Date: [id number] Smith Catheter Care ?? [id number] Smith Catheter Care A Smith catheter is a rubber tube that is placed through the urethra and into the bladder. The urethra is the opening where urine comes out. The catheter helps drain urine from the bladder. There is a small balloon on the end of the tube that is inflated after the catheter is put in place. This keeps the catheter from sliding out of the bladder. A Smith catheter is used when you are unable to pass urine (urinary retention). It's also used whenthere is loss of bladder control (incontinence). It's also used after bladder or prostate surgery. Home care ??? Finish taking any prescribed antibiotic medicine even if you are feeling better before then. ??? It's important to keep bacteria from getting into the collection bag. Don't disconnect the catheter from the collection bag. ??? Use a leg band to secure the drainage tube, so it doesn't pull on the catheter. ??? Don't try to pull or remove your catheter. This will injure your urethra. It must be removed by your healthcare provider or nurse. ??? Drain the collection bag when it becomesfull using the drain spout at the bottom of the bag. ?? Follow-up care Follow up with your healthcare provider, or as advised. This is for repeat urine testing and for catheter removal or replacement. ?? When to seek medical advice Call your healthcare provider right away if any of these occur: ??? Fever of 100.4??F (38??C) or higher, or as directed by your healthcare provider ??? Bladder pain or fullness ??? Abdominal swelling, nausea or vomiting, or back pain ??? Blood or urine leakage around the catheter ??? Bloody urine coming from the catheter (if a new symptom) ??? Catheter falls out ??? Catheter stops draining for 6 hours ??? Weakness, dizziness, or fainting ?? Last Reviewed Date: 2021 ?? [id number] [employer]. All rights reserved. This information is not intended as a substitute for professional medical care. Always follow your healthcare professional's instructions. ?? Patient Care team information Care Team Personnel Name: Flaquita Mota RN Position: S RN Member Role: Primary Care Nurse Name: Lee Prieto Position: S Outreach Member Role: PCP Address: [address] [place] [phone]- Telecom: Name: Ina Nowak RN Position: S RN Member Role: Primary Care Nurse Name: Lani Muñoz RN Position: S RN Member Role: Primary Care Nurse Name: Sana Beltrán RN Position: S RN Member Role: Primary Care Nurse Name: Citlalli Hidalgo RN Position: S RN Member Role: Primary Care Nurse Name: Walker Avery RN Position: S RN Member Role: Primary Care Nurse Name: Cb Burgess RN Position: S RN Member Role: Primary Care Nurse Name: Romina Gould RN Position: S RN Member Role: Primary Care Nurse Name: Miriam Adame RN Position: S RN Member Role: Primary Care Nurse Name: Renny Johnson MD Position: [facility] Renal MD Member Role: Lifetime Consulting Physician Address: [address] [place] [address] [facility] [place] [address]- Telecom: Name: Vinay Zaragoza RN Position: S RN Member Role: Primary Care Nurse Name: Martita Delcid RN Position: S RN Member Role: Primary Care Nurse Name: Susannah Estrada RN Position: S RN Member Role: Primary Care Nurse Name: Darin Hawley RN Position: S RN Member Role: Primary Care Nurse Name: Mi Hudson RN Position: S RN Member Role: Primary Care Nurse Care Team Related Persons Name: RUBY AGEE Name: KENNEY HARRELL Name: ROGELIO ESTRADA Insurance Providers Guarantor name: [place] [facility] Information #: 1 Payer: MEDICARE PART B OUTPT Member Number: [id number] Policy Number: LEE Group Number: LEE Health Plan Information #: 2 Payer: [facility] Member Number: [id number] Policy Number: LEE Group Number: NA
--- OUTSIDE RECORDS SUMMARY | 2024-06-25 21:16 | XMS_ITS | Encounter Summary ---
Author Organization [employer] Address [address] [place] [address] Care Team Providers Care Steam Plant Operator Name Role Phone Priscilla Doan MD Primary Care Provider + Encounter Details Date Type Department Care Team (Late st Contact Info) Description 06/24/2024 Lab Requisition [facility] - Main Lab [address] [facility] [place] [address] Priscilla Doan MD [address] [place] [id number] Unspecified viral hepatitis C 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 Social History Tobacco Use Types Packs/Day Years Used Date Smoking Tobacco: Never Assessed Sex and Gender Information Value Date Recorded Sex Assigned at Not on file Gender Identity Not on file Sexual Orientation Not on file documented as of this encounter Plan of Treatment Scheduled Orders Name Type Priority Associated Diagnoses Orde r Schedule Complete blood count Lab Routine Unspecified viral hepatitis C 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 Ordered: 06/24/2024 Comprehensive metabolic panel Lab Routine Unspecified viral hepatitis C 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 Ordered: 06/24/2024 documented as of this encounter Visit Diagnoses Diagnosis Unspecified viral hepatitis C 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 documented in this encounter Care Teams Steam Plant Operator Relationship Specialty Start Date End Date Priscilla Doan MD [address] [place] [id number] PCP - General Family Medicine 06/18/24 documented as of this encounter
[2024-06-25 21:18] LABS: Basophils Percent Auto 0.3 % (0-2); Eosinophils Absolute Auto 0.2 X10*3/uL (0.0-0.4); Eosinophils Percent Auto 1.2 % (0-4); Hematocrit 27.7 % (42.0-52.0); Hemoglobin 8.8 g/dl (14.0-18.0); Imm Gran Abs Auto 0.13 X10*3/uL (0.00-0.03); Imm Gran Pct Auto 0.8 % (0.0-0.4); Lymphocytes Absolute Auto 0.7 X10*3/uL (1.2-4.9); Lymphocytes Percent Auto 4.4 % (20-40); Mean Corpuscular HGB Conc 31.8 g/dl (31.0-36.0); Mean Corpuscular Hemoglobin 27.9 pg (27.0-33.0); Mean Corpuscular Volume 87.9 fL (80.0-98.0); Mean Platelet Volume 9.7 fL (9.4-12.4); Monocytes Absolute Auto 0.8 X10*3/uL (0.1-1.2); Monocytes Percent Auto 5.1 % (2-11); Neutrophils Absolute Auto 13.8 x10*3/uL (2.0-8.3); Neutrophils Percent Auto 88.2 % (45-73); Platelet Count 242 X10*3/uL (160-400); Red Blood Count 3.15 X10*6/uL (4.60-5.80); Red Cell Distribution Width 16.3 % (11.0-16.0); White Blood Count 15.6 X10*3/uL (4.8-10.8)
[2024-06-25] MEDS: vancomycin HCL 1,500 MG in 0.9 % Sodium Chloride 500 ML 333.33 MG IV (21:25)
[2024-06-25] MEDS: Piperacillin Sodium/Tazobactam 3.375 GM in 0.9 % Sodium Chloride 50 ML IV (21:25)
[2024-06-25 21:30] LABS: Alanine Aminotransferase 14 U/L (0-40); Albumin Level 2.7 g/dL (3.5-5.0); Alkaline Phosphatase 65 U/L (39-117); Anion Gap 20 (12-20); Aspartate Amino Transferase 31 U/L (5-37); Bilirubin Total 0.3 mg/dL (0.0-1.0); Blood Urea Nitrogen 48 mg/dL (9-16); Calcium 8.7 mg/dL (8.4-10.2); Carbon Dioxide 16 mmol/L (22-29); Chloride 107 mmol/L (96-108); Creatinine Clr Calc Pharmacy 42.4; Estimated Glomerular Filt Rate 43; Glucose Random 163 mg/dL (60-115); Potassium 5.5 mmol/L (3.3-5.1); Sodium 137 mmol/L (135-145); Total Protein 6.9 g/dL (6.5-8.0)
[2024-06-25 21:33] LABS: B Type Natriuretic Peptide 286 pg/mL (<100)
[2024-06-25 21:34] LABS: Lactic Acid 5.3 mmol/L (0.5-2.0)
[2024-06-25] MEDS: Lidocaine HCl 1%/Epi 1:100,000 10 ML VIAL INFILTRATI (21:46)
[2024-06-25 21:54] LABS: Influenza A PCR NEGATIVE (Negative); Influenza B PCR NEGATIVE (Negative); Resp Syncy Virus RNA Qual PCR NEGATIVE (Negative); SARS COV2 PCR INHOUSE NEGATIVE (Negative)
[2024-06-25] MEDS: Acetaminophen 1,000 MG/100 ML PIGGYBACK 400 MG IV (22:01)
[2024-06-25] MEDS: Pantoprazole Sodium 40 MG/10 ML VIAL 80 MG IVPUSH (22:04)
--- NOTE | 2024-06-25 22:22 | PM.IMHP ---
History of Present Illness Date of Service: 06/25/24 Chief Complaint: Fever, vomiting, AMS A 68 years old male with PMH of CVA, Hep C w cirrhosis, chronic ngo , from LTC presents to ED with altered mentation, fever and vomiting. \The patient was unable to provide any significant history as he is lethargic and febrile. EMS, ER provider reported that he had abrupt onset fever today with associated vomiting, feeling sicke and becoming altered. reported vomiting at facility and once in ED, reported coffee ground color one time. no hematemesis reported. 4 L Paracentesis done in ED. pending lab work. started on broad spectrum antibiotics and admitted for further work up and management. Review of Systems Review of Systems: Yes Unobtainable due to mental status [facility] Medical History Chronic indwelling Ngo catheter Cirrhosis of liver with ascites Hepatitis C Social History Alcohol intake: former Smoked in Last 30 Days: No Advance Directives: No Advance Directives Information Provided: No Do you have a plan to hurt others: No Plan Meds Allergies Allergy/AdvReac Type Severity Reaction Status Date / Time No Known Allergies Allergy Unverified 06/25/24 20:58 Active Medications: Current Medications Vancomycin HCl 1,500 mg/ (Sodium Chloride) 500 mls @ 333.333 mls/hr IV ONCE ONE Stop: 06/25/24 22:34 Last Admin: 06/25/24 21:25 Dose: 333.33 mls/hr Physical Exam Vital Signs and Narrative: Vital Signs: Last Vital Signs Temp 103.1 F H 06/25/24 21:04 Pulse 133 H 06/25/24 20:53 Resp 45 H 06/25/24 20:53 BP 135/77 06/25/24 20:53 Pulse Ox 92 06/25/24 20:53 O2 Del Method Room Air 06/25/24 20:53 BMI result Body Mass Index 26.8 Const: Other: Constitutional : interactive, not in distress Cardiovascular : no JVP, no lower extremity edema Respiratory : bilateral chest movement, not in resp distress Gastrointestinal: soft, lax, Non tender Skin : Warm, Dry UrologY: Ngo in place Neurological : Alert with stimulation & oriented to self but otherwise vague and confused, right sided hemiplegia, speech preseved Results Labs 06/25/24 21:04 06/25/24 21:04 Labs: Laboratory Results - last 24 hr 06/25/24 21:04 MCV 87.9 MCH 27.9 MCHC 31.8 RDW 16.3 H Plt Count 242 MPV 9.7 Immature Gran % (Auto) 0.8 H Neut % (Auto) 88.2 H Lymph % (Auto) 4.4 L Cecil % (Auto) 5.1 Eos % (Auto) 1.2 Baso % (Auto) 0.3 Lymph # (Auto) 0.7 L Cecil # (Auto) 0.8 Eos # (Auto) 0.2 Baso # (Auto) 0.0 Abs Immat Gran (auto) 0.13 H Absolute Neuts (auto) 13.8 H Absolute Nucleated RBC 0.000 Nucleated RBC % (auto) 0.0 Anion Gap 20 Estim Creat Clear Calc 42.4 Estimated GFR 43 Random Glucose 163 H Lactic Acid 5.3 H* Calcium 8.7 Total Bilirubin 0.3 AST 31 ALT 14 Alkaline Phosphatase 65 B-Natriuretic Peptide 286 H Total Protein 6.9 Albumin 2.7 L Influenza Type A (PCR) NEGATIVE Influenza Type B (PCR) NEGATIVE RSV RNA Qual (PCR) NEGATIVE SARS-CoV-2 RNA (RT-PCR) NEGATIVE Assessment and Plan (1) UTI (urinary tract infection): Status: Acute (2) Severe sepsis: Status: Acute (3) Vomiting: Status: Acute (4) Chronic indwelling Ngo catheter: Status: Acute (5) Cirrhosis of liver with ascites: Status: Acute Plan A 68 years old male with PMH of CVA, Hep C w cirrhosis, chronic ngo , from LTC presents to ED with altered mentation, fever and vomiting. Severe sepsis 2/2 UTI complicated with metabolic encephalopathy and acute lactic acidosis secondary to chronic indwelling catheter mentation improved pending urine culture Broad spectrum Abx pending final blood culture continue Zosyn for now LA of 5.3, to follow Follow Vanco trough Tylenol for fever Acute hyperkalemia received IVF and Lokelma follow BMP Elevated Creatinine could be acute renal injury, pending prev blood work follow I\O Hx Hep C w cirrhosis post paracentesis 4L. fluid analysis negative for SBP, no abd pain Vomiting reported coffee ground emesis follow H&H IV Pantoprazole for now DVT PPx SCDs giving The patient will likely need 2 overnight hospital stay for treatment of severe sepsis pending final cultures Quality Stroke Does the patient have a stroke diagnosis?: No VTE Prior VTE?: No VTE Risk Level:: Medical - moderate - high VTE Device Contraindication: Treatment Not Indicated VTE Drug Contraindication: N/A - Med Ordered
[2024-06-25 22:28] VITALS: BP 104/56; PULSE 121; RESP 28; TEMP 37.7; O2SAT 95
[2024-06-25 22:43] VITALS: BP 107/56; PULSE 119; O2SAT 95
[2024-06-25 22:47] LABS: Color Urine Yellow; UACC Culture Trigger YES
[2024-06-25 22:48] LABS: Bacteria Urine 4+ (None Seen); Hyaline Casts Urine 0-2 /LPF (0-2); Squamous Epithelial Cell Urine 0-2 /HPF (0-2)
[2024-06-25 22:49] LABS: Other Crystals Urine Present
[2024-06-25 22:52] LABS: MN% 96.2 %; PMN% 3.8 %; WBC Peritoneal Fluid 0.103 X10*3/uL
[2024-06-25 22:54] LABS: Appearance Urine Turbid
--- NOTE | 2024-06-25 22:59 | ECG_ITS ---
Test Reason : TACHYCARDIA Blood Pressure : */* mmHG Vent. Rate : 116 BPM Atrial Rate : 116 BPM P-R Int : 128 ms QRS Dur : 88 ms QT Int : 330 ms P-R-T Axes : 82 52 55 degrees QTcB Int : 458 ms Sinus tachycardia Low voltage QRS Borderline ECG When compared with ECG of 25-Jun-2024 21:23, Previous ECG has undetermined rhythm, needs review Referred By: Erasto Sena Electronically Signed By: ASCENCION HOPSON
[2024-06-25 23:00] LABS: RBC Peritoneal Fluid < 0.002 X10*6/uL
[2024-06-25 23:09] LABS: Reflex Lactate? Lactic Acid Added
[2024-06-26] VITALS (11 sets, daily range): BP systolic 103–118; BP diastolic 55–81; PULSE 111–130; RESP 16–32; TEMP 36.6–37.6; O2SAT 94–96
[2024-06-26 00:12] LABS: VBG Base Excess -7.6 mmol/L; VBG HCO3 14 mmol/L (22-26); VBG pCO2 18 mmHg; VBG pH 7.48 (7.32-7.43); VBG pO2 203 mmHg
[2024-06-26 00:12] LABS: Venous Blood Gas Refer to POC result
[2024-06-26 00:12] LABS: Appearance Urine Turbid; Color Urine Dark Yellow; Glucose Urine UA Negative (Negative); Leukocyte Esterase Urine Large (3+) (Negative); Nitrite Urine Positive (Negative); PH >= 9.0 (5.0-9.0); UMIC TRIGGER UACC YES; Urine Blood Moderate (2+) (Negative); Urine Ketones Negative (Negative); Urine Protein 300 (3+) mg/dL (Neg-Trace)
[2024-06-26 00:25] LABS: Bacteria Urine 4+ (None Seen); Other Crystals Urine Present; RBC Urine >20 /HPF (0-2); UACC Culture Trigger NO; WBC Urine >50 /HPF (0-5)
--- NOTE | 2024-06-26 00:30 | PC.NURSE ---
PT passed swallow screen, given oral hydration, repositioned
[2024-06-26] MEDS: 0.9 % Sodium Chloride Flush 3 ML SYRINGE IVFLUSH ×2 (00:34→09:16)
[2024-06-26] MEDS: Sodium Zirconium Cyclosilicate 5 GM POWD.PACK PO (00:34)
[2024-06-26] MEDS: Lactated Ringers 1,000 ML 100 ML IVCONT ×3 (00:35→22:24)
[2024-06-26 00:37] LABS: ~Lactic Acid-LAB USE ONLY 5.5 mmol/L (0.5-2.0)
[2024-06-26] MEDS: 0.9 % Sodium Chloride 1,000 ML 999 ML IV (00:59)
[2024-06-26] MEDS: Heparin Sodium,Porcine 5,000 UNIT/ML VIAL 5000 UNIT SUBCUT (01:36)
[2024-06-26 01:41] LABS: BF Shift QC OK YES; Lymphocyte Peritoneal Fl 35 %; Monocytes Peritoneal Fl 12 %; Neutrophils Peritoneal Fluid 1 %; Other Peritioneal Fl 52 %
[2024-06-26 02:01] LABS: Reflex Lactate? 2 Y
[2024-06-26 02:53] LABS: ~Lactic Acid-LAB USE ONLY 4.7 mmol/L (0.5-2.0)
[2024-06-26 04:54] LABS: MANUAL DIFF FLAG NO
[2024-06-26 04:57] LABS: Basophils Percent Auto 0.2 % (0-2); Hematocrit 25.5 % (42.0-52.0); Hemoglobin 8.1 g/dl (14.0-18.0); Imm Gran Abs Auto 0.16 X10*3/uL (0.00-0.03); Imm Gran Pct Auto 1.5 % (0.0-0.4); Lymphocytes Absolute Auto 0.5 X10*3/uL (1.2-4.9); Lymphocytes Percent Auto 4.1 % (20-40); Mean Corpuscular HGB Conc 31.8 g/dl (31.0-36.0); Mean Corpuscular Hemoglobin 27.6 pg (27.0-33.0); Mean Platelet Volume 10.2 fL (9.4-12.4); Monocytes Absolute Auto 0.5 X10*3/uL (0.1-1.2); Monocytes Percent Auto 4.2 % (2-11); Neutrophils Absolute Auto 9.8 x10*3/uL (2.0-8.3); Platelet Count 157 X10*3/uL (160-400); Red Blood Count 2.93 X10*6/uL (4.60-5.80); Red Cell Distribution Width 16.3 % (11.0-16.0); White Blood Count 10.9 X10*3/uL (4.8-10.8)
[2024-06-26 05:43] LABS: Anion Gap 17 (12-20); Blood Urea Nitrogen 45 mg/dL (9-16); Calcium 8.2 mg/dL (8.4-10.2); Carbon Dioxide 12 mmol/L (22-29); Chloride 114 mmol/L (96-108); Creatinine Clr Calc Pharmacy 45.2; Estimated Glomerular Filt Rate 46; Glucose Random 121 mg/dL (60-115); Potassium 4.8 mmol/L (3.3-5.1); Sodium 138 mmol/L (135-145)
[2024-06-26] MEDS: Piperacillin Sodium/Tazobactam 2.25 GM in 0.9 % Sodium Chloride 50 ML IV ×3 (06:26→17:47)
[2024-06-26] MEDS: Albumin Human 25 % 100 ML IV ×2 (09:14→10:00)
--- NOTE | 2024-06-26 09:18 | PC.NURSE ---
Albumin infused was in #4 50ml bags not #2 100ml bag per pharmacy as 50ml bags were set to and needed to be used first. Scanned two 50ml bags to equal 100 ml bag in the MAR.
--- NOTE | 2024-06-26 09:31 | MHC.CM.PN ---
Patient is here with AMS; CM attempted to speak with the Primary Contact/Soraya @ [phone], but that # is no longer in service. CM attempted to speak with Second Contact/Isa @ [phone], but he stated that he is no longer a Contact. Patient is a LTC Resident and [facility] bed hold at [facility] and returning there to continue LTC appears to be the goal; CM has initiated and will follow for dc planning. CM has requested a copy of the HCP from [facility].
--- NOTE | 2024-06-26 09:32 | P.PNIM_ITS ---
Subjective Subjective Date of Service: 06/26/24 Interval History: chills Review of Systems Review of Systems: Yes all other systems are reviewed and are negative Physical Exam 2 Vital Signs: Vital Signs: Last Vital Signs Temp 98.7 F 06/26/24 08:21 Pulse 123 H 06/26/24 08:21 Resp 20 06/26/24 08:21 BP 106/56 L 06/26/24 08:21 Pulse Ox 96 06/26/24 08:21 O2 Del Method Room Air 06/26/24 08:21 BMI result Body Mass Index 26.8 alert oriented to hospital and name only, ill appearing, chachexic, right hemiplegia Objective Data Active Medications Acetaminophen (Acetaminophen 325 Mg Tablet) 650 mg PO Q6H PRN PRN Reason: Pain, Mild 1-3,fever,headache Apixaban (Apixaban 5 Mg Tablet) 5 mg PO BID [facility] Atorvastatin Calcium (Atorvastatin Calcium 10 Mg Tablet) 10 mg PO BEDTIME [facility] Calcium Carbonate (Calcium Carbonate 750 Mg Tab.Chew) 750 mg PO Q4H PRN PRN Reason: Heartburn Finasteride (Finasteride 5 Mg Tablet) 5 mg PO DAILY [facility] Lactated Ringer's (Lr) 1,000 mls @ 100 mls/hr IVCONT .Q10H [facility] Last Admin: 06/26/24 00:35 Dose: 100 mls/hr Documented By: CONNOR Piperacillin Sod/Tazobactam (Sod 2.25 gm/ Sodium Chloride) 50 mls @ 100 mls/hr IV Q6H [facility] Last Infusion: 06/26/24 07:03 Dose: Infused Documented By: CONNOR Albumin Human (Kedbumin 25 %) 100 mls @ 100 mls/hr IV Q1H [facility] Stop: 06/26/24 09:59 Last Admin: 06/26/24 09:14 Dose: 100 mls/hr Documented By: GLORIA Lactulose (Lactulose 20 Gm/30 Ml Solution) 20 gm PO BID [facility] Magnesium Hydroxide (Milk Of Magnesia 30 Ml Oral.Susp) 30 ml PO DAILY PRN PRN Reason: Constipation Melatonin (Melatonin 3 Mg Tablet) 6 mg PO BEDTIME PRN PRN Reason: Insomnia Midodrine (Midodrine Hcl 10 Mg Tablet) 10 mg PO TID [facility] Ondansetron HCl (Ondansetron Hcl 4 Mg/2 Ml Vial) 4 mg IVPUSH Q8H PRN PRN Reason: Nausea and Vomiting Pantoprazole Sodium (Pantoprazole Sodium 40 Mg/10 Ml Vial) 40 mg IVPUSH BID@0630,1630 [facility] Sodium Chloride (0.9 % Sodium Chloride Flush 3 Ml Syringe) 3 ml IVFLUSH QSHIFT [facility] Last Admin: 06/26/24 09:16 Dose: 3 ml Documented By: GLORIA Tamsulosin HCl (Tamsulosin Hcl 0.4 Mg Capsule) 0.4 mg PO BEDTIME [facility] Labs 06/26/24 04:33 06/26/24 04:33 Labs: Laboratory Results - last 24 hr 06/25/24 06/25/24 06/25/24 21:04 21:10 22:22 MCV 87.9 MCH 27.9 MCHC 31.8 RDW 16.3 H Plt Count 242 MPV 9.7 Immature Gran % (Auto) 0.8 H Neut % (Auto) 88.2 H Lymph % (Auto) 4.4 L Bond % (Auto) 5.1 Eos % (Auto) 1.2 Baso % (Auto) 0.3 Lymph # (Auto) 0.7 L Bond # (Auto) 0.8 Eos # (Auto) 0.2 Baso # (Auto) 0.0 Abs Immat Gran (auto) 0.13 H Absolute Neuts (auto) 13.8 H Absolute Nucleated RBC 0.000 Nucleated RBC % (auto) 0.0 VBG pH VBG pCO2 VBG pO2 VBG HCO3 VBG O2 Saturation VBG Base Excess Anion Gap 20 Estim Creat Clear Calc 42.4 Estimated GFR 43 Random Glucose 163 H Lactic Acid 5.3 H* Lactic Acid F/U @ 2Hr Lactic Acid F/U @ 4Hr Calcium 8.7 Total Bilirubin 0.3 AST 31 ALT 14 Alkaline Phosphatase 65 B-Natriuretic Peptide 286 H Total Protein 6.9 Albumin 2.7 L Urine Color Yellow Urine Appearance Turbid Urine pH TNP Ur Specific [place] TNP Urine Protein TNP Urine Glucose (UA) TNP Urine Ketones TNP Urine Blood TNP Urine Nitrite TNP Ur Leukocyte Esterase TNP Urine RBC 11-20 H Urine WBC 6-10 H Ur Squamous Epith Cells 0-2 Other Crystals Present Urine Bacteria 4+ Hyaline Casts 0-2 Peritoneal WBC 0.103 Peritoneal RBC < 0.002 Periton Neutrophils 1 Periton Lymphocytes 35 Peritoneal Monocytes 12 Peritoneal Other Cells 52 Influenza Type A (PCR) NEGATIVE Influenza Type B (PCR) NEGATIVE RSV RNA Qual (PCR) NEGATIVE SARS-CoV-2 RNA (RT-PCR) NEGATIVE 06/25/24 06/26/24 06/26/24 23:55 00:06 02:30 MCV MCH MCHC RDW Plt Count MPV Immature Gran % (Auto) Neut % (Auto) Lymph % (Auto) Bond % (Auto) Eos % (Auto) Baso % (Auto) Lymph # (Auto) Bond # (Auto) Eos # (Auto) Baso # (Auto) Abs Immat Gran (auto) Absolute Neuts (auto) Absolute Nucleated RBC Nucleated RBC % (auto) VBG pH 7.48 H VBG pCO2 18 VBG pO2 203 VBG HCO3 14 L VBG O2 Saturation 100.0 VBG Base Excess -7.6 Anion Gap Estim Creat Clear Calc Estimated GFR Random Glucose Lactic Acid Lactic Acid F/U @ 2Hr 5.5 H* Lactic Acid F/U @ 4Hr 4.7 H* Calcium Total Bilirubin AST ALT Alkaline Phosphatase B-Natriuretic Peptide Total Protein Albumin Urine Color Dark Yellow Urine Appearance Turbid Urine pH >= 9.0 Ur Specific [place] 1.020 Urine Protein 300 (3+) H Urine Glucose (UA) Negative Urine Ketones Negative Urine Blood Moderate (2+) H Urine Nitrite Positive H Ur Leukocyte Esterase Large (3+) H Urine RBC >20 H Urine WBC >50 H Ur Squamous Epith Cells 11-20 Other Crystals Present Urine Bacteria 4+ Hyaline Casts 6-10 Peritoneal WBC Peritoneal RBC Periton Neutrophils Periton Lymphocytes Peritoneal Monocytes Peritoneal Other Cells Influenza Type A (PCR) Influenza Type B (PCR) RSV RNA Qual (PCR) SARS-CoV-2 RNA (RT-PCR) 06/26/24 04:33 MCV 87.0 MCH 27.6 MCHC 31.8 RDW 16.3 H Plt Count 157 L D MPV 10.2 Immature Gran % (Auto) 1.5 H Neut % (Auto) 90.0 H Lymph % (Auto) 4.1 L Bond % (Auto) 4.2 Eos % (Auto) 0.0 Baso % (Auto) 0.2 Lymph # (Auto) 0.5 L Bond # (Auto) 0.5 Eos # (Auto) 0.0 Baso # (Auto) 0.0 Abs Immat Gran (auto) 0.16 H Absolute Neuts (auto) 9.8 H Absolute Nucleated RBC 0.000 Nucleated RBC % (auto) 0.0 VBG pH VBG pCO2 VBG pO2 VBG HCO3 VBG O2 Saturation VBG Base Excess Anion Gap 17 Estim Creat Clear Calc 45.2 Estimated GFR 46 Random Glucose 121 H Lactic Acid Lactic Acid F/U @ 2Hr Lactic Acid F/U @ 4Hr Calcium 8.2 L Total Bilirubin AST ALT Alkaline Phosphatase B-Natriuretic Peptide Total Protein Albumin Urine Color Urine Appearance Urine pH Ur Specific [place] Urine Protein Urine Glucose (UA) Urine Ketones Urine Blood Urine Nitrite Ur Leukocyte Esterase Urine RBC Urine WBC Ur Squamous Epith Cells Other Crystals Urine Bacteria Hyaline Casts Peritoneal WBC Peritoneal RBC Periton Neutrophils Periton Lymphocytes Peritoneal Monocytes Peritoneal Other Cells Influenza Type A (PCR) Influenza Type B (PCR) RSV RNA Qual (PCR) SARS-CoV-2 RNA (RT-PCR) Microbiology Microbiology Results: Microbiology 06/25/24 22:22 Gram Stain - Final Paracentesis Fluid Anaerobic Culture - Preliminary No growth to date. Body Fluid Culture - Preliminary No growth to date. Assessment and Plan (1) Cirrhosis of liver with ascites: Status: Acute Plan 68M PMH hcv cirrhosis, cva with right hemiplegia, bph with chronic ngo, CAD, recent right common femoral DVT (may 2024) on eliquis, CKD III presented with ams Acute metabolic encephalopathy due to severe sepsis due to urinary tract infection due to chronic Ngo Continue Zosyn, follow up cultures Lactulose, midodrine Recent common femoral DVT Continue Eliquis Given report of coffee-ground emesis monitor hemoglobin closely, does not appear to be actively bleeding now though, continue empiric PPI HCV cirrhosis with ascites Status post 4 L paracentesis no SBP, give albumin CKD 3 Stable Coronary artery disease Eliquis, statin Full code reason for continued hospitalization: Awaiting cultures Quality Stroke Does the patient have a stroke diagnosis?: No VTE Prior VTE?: No VTE Risk Level:: Medical - moderate - high VTE Device Contraindication: Treatment Not Indicated VTE Drug Contraindication: N/A - Med Ordered
--- NOTE | 2024-06-26 10:03 | PHA.MEDREC ---
Pharmacy Consult ? Medication Reconciliation Pharmacy has completed the medication reconciliation. PATIENT HAD LIST FROM [facility]. NOTIFIED MED REC IS COMPLETE
[2024-06-26] MEDS: Midodrine HCl 10 MG TABLET PO ×3 (10:58→22:21)
[2024-06-26] MEDS: Apixaban 5 MG TABLET PO ×2 (10:58→22:20)
[2024-06-26] MEDS: Finasteride 5 MG TABLET PO (10:58)
[2024-06-26] MEDS: Lactulose 20 GM/30 ML SOLUTION PO ×2 (10:58→22:24)
--- NOTE | 2024-06-26 16:01 | HO.SKINPHOTO ---
Location: Category: Stage: Length: Width: Depth: cm Location: Category: Stage: Length: Width: Depth: cm Location: Category: Stage: Length: Width: Depth: cm Location: Category: Stage: Length: Width: Depth: cm Location: Category: Stage: Length: Width: Depth: cm Location: Category: Stage: Length: Width: Depth: cm
[2024-06-26] MEDS: Pantoprazole Sodium 40 MG/10 ML VIAL IVPUSH (16:40)
[2024-06-26] MEDS: Tamsulosin HCL 0.4 MG CAPSULE PO (22:20)
[2024-06-26] MEDS: Mirtazapine 7.5 MG TABLET 22.5 MG PO (22:20)
[2024-06-26] MEDS: Gabapentin 100 MG CAPSULE 200 MG PO (22:21)
[2024-06-26] MEDS: Atorvastatin Calcium 10 MG TABLET PO (22:23)
[2024-06-26] MEDS: Acetaminophen 325 MG TABLET 650 MG PO (22:30)
[2024-06-27] MEDS: Piperacillin Sodium/Tazobactam 2.25 GM in 0.9 % Sodium Chloride 50 ML IV ×5 (00:49→23:00)
[2024-06-27] MEDS: 0.9 % Sodium Chloride Flush 3 ML SYRINGE IVFLUSH ×4 (00:52→19:43)
[2024-06-27 03:16] VITALS: BP 95/51; PULSE 93; RESP 18; TEMP 36.1; O2SAT 97
[2024-06-27 06:09] LABS: INTERNATIONAL NORM RATIO 1.7 (0.9-1.1); Prothrombin Time 19.8 SEC (10.9-12.4)
[2024-06-27 06:16] LABS: Ammonia 42 umol/L (13-55)
--- NOTE | 2024-06-27 06:25 | PC.NURSE ---
contacted MD Mandel as pt has duplicate Pantoprazole order. Newer order is non formulary, PO daily and not in bin. Older order is IV BID. Instructed to continue the IV until the day team decide plz .. Order will need clarification during day.
[2024-06-27] MEDS: Pantoprazole Sodium 40 MG/10 ML VIAL IVPUSH ×2 (06:36→18:19)
[2024-06-27 07:07] LABS: Hematocrit 25.5 % (42.0-52.0); Mean Corpuscular HGB Conc 31.4 g/dl (31.0-36.0); Mean Corpuscular Hemoglobin 27.4 pg (27.0-33.0); Mean Corpuscular Volume 87.3 fL (80.0-98.0); Red Blood Count 2.92 X10*6/uL (4.60-5.80); Red Cell Distribution Width 16.3 % (11.0-16.0); White Blood Count 4.4 X10*3/uL (4.8-10.8)
[2024-06-27 07:08] LABS: Platelet Count 115 X10*3/uL (160-400)
[2024-06-27 07:41] LABS: Alanine Aminotransferase 13 U/L (0-40); Albumin Level 2.8 g/dL (3.5-5.0); Alkaline Phosphatase 45 U/L (39-117); Anion Gap 14 (12-20); Aspartate Amino Transferase 50 U/L (5-37); Bilirubin Direct 0.1 mg/dL (0.0-0.5); Bilirubin Total 0.3 mg/dL (0.0-1.0); Blood Urea Nitrogen 44 mg/dL (9-16); Calcium 8.1 mg/dL (8.4-10.2); Carbon Dioxide 18 mmol/L (22-29); Chloride 114 mmol/L (96-108); Estimated Glomerular Filt Rate 46; Glucose Random 136 mg/dL (60-115); Magnesium 1.4 mg/dL (1.6-2.6); Sodium 142 mmol/L (135-145); Total Protein 5.9 g/dL (6.5-8.0)
[2024-06-27 07:52] VITALS: BP 110/63; PULSE 100; RESP 18; TEMP 36.8; O2SAT 95
[2024-06-27] MEDS: Magnesium Sulfate/H2O 2 GM/50 ML PIGGYBACK IV (08:01)
[2024-06-27] MEDS: Folic Acid 1 MG TABLET PO (08:37)
[2024-06-27] MEDS: Multivitamin TABLET 1 TAB PO (08:37)
[2024-06-27] MEDS: Midodrine HCl 10 MG TABLET PO ×2 (08:37→19:42)
[2024-06-27] MEDS: Gabapentin 100 MG CAPSULE 200 MG PO ×2 (08:37→19:42)
[2024-06-27] MEDS: Finasteride 5 MG TABLET PO (08:37)
[2024-06-27] MEDS: Apixaban 5 MG TABLET PO ×2 (08:37→19:42)
[2024-06-27] MEDS: Escitalopram Oxalate 20 MG TABLET PO (08:37)
[2024-06-27] MEDS: Lactulose 20 GM/30 ML SOLUTION PO ×2 (08:37→19:43)
[2024-06-27] MEDS: Magnesium Oxide 400 MG TABLET PO (08:37)
--- NOTE | 2024-06-27 09:30 | HO.PM.IMPN ---
Subjective Subjective Date of Service: 06/27/24 Interval History: no complaints Physical Exam Vital Signs: Vital Signs: Last Vital Signs Temp 98.2 F 06/27/24 07:52 Pulse 100 06/27/24 07:52 Resp 18 06/27/24 07:52 BP 110/63 06/27/24 07:52 Pulse Ox 95 06/27/24 07:52 O2 Del Method Room Air 06/27/24 07:52 BMI result Body Mass Index 26.8 alert oriented to hospital and name only, ill appearing, chachexic, right hemiplegia Objective Data Active Medications Acetaminophen (Acetaminophen 325 Mg Tablet) 650 mg PO Q6H PRN PRN Reason: Pain, Mild 1-3,fever,headache Last Admin: 06/26/24 22:30 Dose: 650 mg Documented By: MEHUL Apixaban (Apixaban 5 Mg Tablet) 5 mg PO BID [facility] Last Admin: 06/27/24 08:37 Dose: 5 mg Documented By: WILLIAM Atorvastatin Calcium (Atorvastatin Calcium 10 Mg Tablet) 10 mg PO BEDTIME [facility] Last Admin: 06/26/24 22:23 Dose: 10 mg Documented By: MEHUL Calcium Carbonate (Calcium Carbonate 750 Mg Tab.Chew) 750 mg PO Q4H PRN PRN Reason: Heartburn Escitalopram Oxalate (Escitalopram Oxalate 20 Mg Tablet) 20 mg PO DAILY [facility] Last Admin: 06/27/24 08:37 Dose: 20 mg Documented By: WILLIAM Finasteride (Finasteride 5 Mg Tablet) 5 mg PO DAILY [facility] Last Admin: 06/27/24 08:37 Dose: 5 mg Documented By: WILLIAM Folic Acid (Folic Acid 1 Mg Tablet) 1 mg PO DAILY [facility] Last Admin: 06/27/24 08:37 Dose: 1 mg Documented By: WILLIAM Gabapentin (Gabapentin 100 Mg Capsule) 200 mg PO BID [facility] Last Admin: 06/27/24 08:37 Dose: 200 mg Documented By: WILLIAM Piperacillin Sod/Tazobactam (Sod 2.25 gm/ Sodium Chloride) 50 mls @ 100 mls/hr IV Q6H [facility] Last Infusion: 06/27/24 07:54 Dose: Infused Documented By: WILLIAM Magnesium Sulfate (Magnesium Sulfate/H2o) 2 gm in 50 mls @ 25 mls/hr IV ONCE ONE Stop: 06/27/24 09:37 Last Admin: 06/27/24 08:01 Dose: 25 mls/hr Documented By: WILLIAM Lactulose (Lactulose 20 Gm/30 Ml Solution) 20 gm PO BID [facility] Last Admin: 06/27/24 08:37 Dose: 20 gm Documented By: WILLIAM Magnesium Hydroxide (Milk Of Magnesia 30 Ml Oral.Susp) 30 ml PO DAILY PRN PRN Reason: Constipation Magnesium Oxide (Magnesium Oxide 400 Mg Tablet) 400 mg PO DAILY [facility] Last Admin: 06/27/24 08:37 Dose: 400 mg Documented By: WILLIAM Melatonin (Melatonin 3 Mg Tablet) 6 mg PO BEDTIME PRN PRN Reason: Insomnia Midodrine (Midodrine Hcl 10 Mg Tablet) 10 mg PO TID [facility] Last Admin: 06/27/24 08:37 Dose: 10 mg Documented By: WILLIAM Mirtazapine (Mirtazapine 7.5 Mg Tablet) 22.5 mg PO BEDTIME [facility] Last Admin: 06/26/24 22:20 Dose: 22.5 mg Documented By: MEHUL Multivitamins/Vitamin C (Multivitamin Tablet) 1 tab PO DAILY [facility] Last Admin: 06/27/24 08:37 Dose: 1 tab Documented By: WILLIAM Non-Formulary Medication (Pantoprazole) 20 mg PO DAILY@0630 [facility] Last Admin: 06/27/24 06:25 Dose: Not Given Documented By: LILI Non-Admin Reason: see note Ondansetron HCl (Ondansetron Hcl 4 Mg/2 Ml Vial) 4 mg IVPUSH Q8H PRN PRN Reason: Nausea and Vomiting Pantoprazole Sodium (Pantoprazole Sodium 40 Mg/10 Ml Vial) 40 mg IVPUSH BID@0630,1630 [facility] Last Admin: 06/27/24 06:36 Dose: 40 mg Documented By: LILI Sodium Chloride (0.9 % Sodium Chloride Flush 3 Ml Syringe) 3 ml IVFLUSH QSHIFT [facility] Last Admin: 06/27/24 08:01 Dose: 3 ml Documented By: WILLIAM Tamsulosin HCl (Tamsulosin Hcl 0.4 Mg Capsule) 0.4 mg PO BEDTIME [facility] Last Admin: 06/26/24 22:20 Dose: 0.4 mg Documented By: MEHUL Labs 06/27/24 05:47 06/27/24 05:47 Labs: Laboratory Results - last 24 hr 06/27/24 06/27/24 05:47 05:51 MCV 87.3 MCH 27.4 MCHC 31.4 RDW 16.3 H Plt Count 115 L D MPV 10.0 Absolute Nucleated RBC 0.000 Nucleated RBC % (auto) 0.0 PT 19.8 H INR 1.7 H Anion Gap 14 Estim Creat Clear Calc 45.0 Estimated GFR 46 Random Glucose 136 H Calcium 8.1 L Magnesium 1.4 L* Total Bilirubin 0.3 Direct Bilirubin 0.1 AST 50 H ALT 13 Alkaline Phosphatase 45 Ammonia 42 Total Protein 5.9 L Albumin 2.8 L Microbiology Microbiology Results: Microbiology 06/25/24 22:22 Gram Stain - Final Paracentesis Fluid Anaerobic Culture - Preliminary No growth to date. Body Fluid Culture - Preliminary No growth to date. 06/25/24 21:04 Blood Culture - Preliminary Blood - Venous Prelim: GNR Gram Stain only 06/25/24 21:19 Blood Culture - Preliminary Blood - Venous Prelim: GNR Gram Stain only Assessment and Plan (1) Cirrhosis of liver with ascites: Status: Acute Plan 68M PMH hcv cirrhosis, cva with right hemiplegia, bph with chronic ngo, CAD, recent right common femoral DVT (may 2024) on eliquis, CKD III presented with ams Acute metabolic encephalopathy due to severe sepsis due to urinary tract infection due to chronic Ngo complicated by GNR bacteremia Continue Zosyn, follow up cultures Lactulose, midodrine Recent common femoral DVT Continue Eliquis Given report of coffee-ground emesis monitor hemoglobin closely, does not appear to be actively bleeding now though, continue empiric PPI HCV cirrhosis with ascites Status post 4 L paracentesis no SBP, give albumin CKD 3 Stable Coronary artery disease Eliquis, statin Full code reason for continued hospitalization: Awaiting cultures Quality Stroke Does the patient have a stroke diagnosis?: No VTE Prior VTE?: No VTE Risk Level:: Medical - moderate - high VTE Device Contraindication: Treatment Not Indicated VTE Drug Contraindication: N/A - Med Ordered
[2024-06-27 12:00] VITALS: BP 100/57; PULSE 97; RESP 18; TEMP 36.6; O2SAT 96
--- NOTE | 2024-06-27 13:13 | MHC.CM.PN ---
EMR REVIEWED AND PER MD ROUNDS, PT IS NOT MEDICALLY CLEARED FOR DC BACK TO [facility]. (AWAITING CULTURES) [facility] UPDATED [facility]IA [facility]. CM WILL CONTINUE TO FOLLOW FOR ANY CHANGE TO DC PLAN/NEEDS
[2024-06-27 14:30] LABS: Albumin Peritoneal Fluid 1.3; LDH Peritoneal Fluid 73; Total Protein Peritoneal Fluid 2.6
[2024-06-27 15:01] VITALS: BMI 26.8
[2024-06-27 15:06] VITALS: BP 143/69; PULSE 100; RESP 16; TEMP 36.9; O2SAT 94
--- NOTE | 2024-06-27 17:25 | HO.WOUND ---
Wound Consult: Initial 68yr old?male admitted to [facility] [place] [facility] on 06/25/24- See progress notes and H&P for detailed history.? Wound consult placed for Coccyx wound.? Patient agreeable to assessment and photo documentation.? Sacrum / Coccyx Etiology: ??Deep Tissue Injury Present on Admission Measurements: 9cm x 6cm x 0.2cm Wound Bed: full thickness tissue loss with scant slough noted - scattered areas of red maroon purple nonblanchable tissue Drainage / Odor: none noted at the time of my consult Edges: ? irregular [place] wound: MASD - IAD ? No Induration, Fluctuance or Warmth noted Pain: tenderness reported Goals of Treatment: ? Triad to protect from moisture and friction Bilateral Heels noted for dry intact blanchable redness Preventative foams applied and elevated off of bed with pillows. Recommendations: 1. Turn and Reposition every 2 hours and as needed for patient comfort.? Use pillows or wedges to support off loading positions. 2. Off Load all bony prominences with use of pillows and heel boots if needed.? Apply Preventative foams where needed. ? 3. Monitor for incontinence and moisture control, use barrier creams when needed for prevention and treatment. 4. Provide adequate and supplemental nutrition.? 5. Order low air loss mattress. 6. When applicable maintain blood glucose levels per Providers order. 7. Bilateral Heels - Elevate heels off of surface of bed. Apply skin prep allow to dry. Apply preventative foam dressing to aid in pressure redistribution. 8. Sacrum and Perianal - ?Off Load Pressure with Q2 hr turns and use of pillows - Cleanse with PH balance spray or wipes, pat dry. ?Apply thin layer of Triad to wound bed - only pat and dab no scrub and rub when soiling occurs. Reapply thin layer PRN after each episode of incontinence. Re-consult wound care Nurse for wound deterioration or wound changes.
[2024-06-27 19:07] VITALS: BP 130/73; PULSE 110; RESP 18; TEMP 37.1; O2SAT 97
[2024-06-27] MEDS: Melatonin 3 MG TABLET 6 MG PO (19:42)
[2024-06-27] MEDS: Mirtazapine 7.5 MG TABLET 22.5 MG PO (19:42)
[2024-06-27] MEDS: Tamsulosin HCL 0.4 MG CAPSULE PO (19:42)
[2024-06-27] MEDS: Atorvastatin Calcium 10 MG TABLET PO (19:42)
[2024-06-27 23:23] VITALS: BP 104/66; PULSE 119; RESP 18; TEMP 37; O2SAT 96
[2024-06-28 03:35] VITALS: BP 107/67; PULSE 109; RESP 18; TEMP 36.8; O2SAT 96
[2024-06-28] MEDS: Omeprazole 20 MG CAPSULE.DR PO (05:28)
[2024-06-28] MEDS: Piperacillin Sodium/Tazobactam 2.25 GM in 0.9 % Sodium Chloride 50 ML IV (05:51)
[2024-06-28 06:46] LABS: Anion Gap 15 (12-20); Blood Urea Nitrogen 43 mg/dL (9-16); Calcium 8.3 mg/dL (8.4-10.2); Carbon Dioxide 16 mmol/L (22-29); Chloride 115 mmol/L (96-108); Creatinine Clr Calc Pharmacy 44.1; Estimated Glomerular Filt Rate 45; Glucose Random 184 mg/dL (60-115); Magnesium 1.7 mg/dL (1.6-2.6); Potassium 3.5 mmol/L (3.3-5.1); Sodium 142 mmol/L (135-145)
[2024-06-28 06:55] LABS: Hematocrit 27.3 % (42.0-52.0); Hemoglobin 8.6 g/dl (14.0-18.0); Mean Corpuscular HGB Conc 31.5 g/dl (31.0-36.0); Mean Corpuscular Hemoglobin 27.2 pg (27.0-33.0); Mean Corpuscular Volume 86.4 fL (80.0-98.0); NRBC Pct Auto 0.5 /100WBC (0.0-0.2); PLT CLUMP 1; Red Blood Count 3.16 X10*6/uL (4.60-5.80); Red Cell Distribution Width 16.1 % (11.0-16.0); White Blood Count 3.9 X10*3/uL (4.8-10.8)
[2024-06-28 07:56] VITALS: BP 114/70; PULSE 114; RESP 12; TEMP 36.5; O2SAT 95
--- NOTE | 2024-06-28 08:41 | P.PNIM_ITS ---
Subjective Subjective Date of Service: 06/28/24 Interval History: no complaints Physical Exam 2 Vital Signs: Vital Signs: Last Vital Signs Temp 97.7 F 06/28/24 07:56 Pulse 114 H 06/28/24 07:56 Resp 12 06/28/24 07:56 BP 114/70 06/28/24 07:56 Pulse Ox 95 06/28/24 07:56 O2 Del Method Room Air 06/28/24 07:56 BMI result Body Mass Index 26.8 alert oriented to hospital and name only, ill appearing (stronger appearing today), chachexic, right hemiplegia Objective Data Active Medications Acetaminophen (Acetaminophen 325 Mg Tablet) 650 mg PO Q6H PRN PRN Reason: Pain, Mild 1-3,fever,headache Last Admin: 06/26/24 22:30 Dose: 650 mg Documented By: MEHUL Apixaban (Apixaban 5 Mg Tablet) 5 mg PO BID [facility] Last Admin: 06/27/24 19:42 Dose: 5 mg Documented By: CHRISTINE Atorvastatin Calcium (Atorvastatin Calcium 10 Mg Tablet) 10 mg PO BEDTIME [facility] Last Admin: 06/27/24 19:42 Dose: 10 mg Documented By: CHRISTINE Calcium Carbonate (Calcium Carbonate 750 Mg Tab.Chew) 750 mg PO Q4H PRN PRN Reason: Heartburn Escitalopram Oxalate (Escitalopram Oxalate 20 Mg Tablet) 20 mg PO DAILY [facility] Last Admin: 06/27/24 08:37 Dose: 20 mg Documented By: WILLIAM Finasteride (Finasteride 5 Mg Tablet) 5 mg PO DAILY [facility] Last Admin: 06/27/24 08:37 Dose: 5 mg Documented By: WILLIAM Folic Acid (Folic Acid 1 Mg Tablet) 1 mg PO DAILY [facility] Last Admin: 06/27/24 08:37 Dose: 1 mg Documented By: WILLIAM Gabapentin (Gabapentin 100 Mg Capsule) 200 mg PO BID [facility] Last Admin: 06/27/24 19:42 Dose: 200 mg Documented By: CHRISTINE Lactulose (Lactulose 20 Gm/30 Ml Solution) 20 gm PO BID [facility] Last Admin: 06/27/24 19:43 Dose: 20 gm Documented By: CHRISTINE Levofloxacin (Levofloxacin 750 Mg Tablet) 750 mg PO Q48H [facility] Magnesium Hydroxide (Milk Of Magnesia 30 Ml Oral.Susp) 30 ml PO DAILY PRN PRN Reason: Constipation Magnesium Oxide (Magnesium Oxide 400 Mg Tablet) 400 mg PO DAILY [facility] Last Admin: 06/27/24 08:37 Dose: 400 mg Documented By: WILLIAM Melatonin (Melatonin 3 Mg Tablet) 6 mg PO BEDTIME PRN PRN Reason: Insomnia Last Admin: 06/27/24 19:42 Dose: 6 mg Documented By: CHRISTINE Midodrine (Midodrine Hcl 10 Mg Tablet) 10 mg PO TID [facility] Last Admin: 06/27/24 19:42 Dose: 10 mg Documented By: CHRISTINE Mirtazapine (Mirtazapine 7.5 Mg Tablet) 22.5 mg PO BEDTIME [facility] Last Admin: 06/27/24 19:42 Dose: 22.5 mg Documented By: CHRISTINE Multivitamins/Vitamin C (Multivitamin Tablet) 1 tab PO DAILY [facility] Last Admin: 06/27/24 08:37 Dose: 1 tab Documented By: WILLIAM Omeprazole (Omeprazole 20 Mg Capsule.) 20 mg PO DAILY@0630 [facility] Last Admin: 06/28/24 05:28 Dose: 20 mg Documented By: CHRISTINE Ondansetron HCl (Ondansetron Hcl 4 Mg/2 Ml Vial) 4 mg IVPUSH Q8H PRN PRN Reason: Nausea and Vomiting Sodium Bicarbonate (Sodium Bicarbonate 650 Mg Tablet) 650 mg PO TID [facility] Sodium Chloride (0.9 % Sodium Chloride Flush 3 Ml Syringe) 3 ml IVFLUSH QSHIFT [facility] Last Admin: 06/27/24 19:43 Dose: 3 ml Documented By: CHRISTINE Tamsulosin HCl (Tamsulosin Hcl 0.4 Mg Capsule) 0.4 mg PO BEDTIME [facility] Last Admin: 06/27/24 19:42 Dose: 0.4 mg Documented By: CHRISTINE Labs 06/28/24 05:44 06/28/24 05:44 Labs: Laboratory Results - last 24 hr 06/25/24 06/28/24 22:22 05:44 MCV 86.4 MCH 27.2 MCHC 31.5 RDW 16.1 H Plt Count TNP MPV Not Reportable Absolute Nucleated RBC 0.020 H Nucleated RBC % (auto) 0.5 H Anion Gap 15 Estim Creat Clear Calc 44.1 Estimated GFR 45 Random Glucose 184 H Calcium 8.3 L Magnesium 1.7 Peritoneal Tot Protein 2.6 Peritoneal Albumin 1.3 Peritoneal LDH 73 Microbiology Microbiology Results: Microbiology 06/25/24 22:22 Gram Stain - Final Paracentesis Fluid Anaerobic Culture - Preliminary No growth to date. Body Fluid Culture - Final No growth after 2 days 06/25/24 21:19 Blood Culture - Final Blood - Venous Proteus mirabilis 06/25/24 21:04 Blood Culture - Final Blood - Venous Proteus mirabilis 06/25/24 23:55 Urine Culture - Final Urine Catheterized - Ngo Catheter Proteus mirabilis Assessment and Plan (1) Cirrhosis of liver with ascites: Status: Acute Plan 68M PMH hcv cirrhosis, cva with right hemiplegia, bph with chronic ngo, CAD, recent right common femoral DVT (may 2024) on eliquis, CKD III presented with ams Acute metabolic encephalopathy due to severe sepsis due to urinary tract infection due to chronic Ngo complicated by proteus mirabilis bacteremia changed to levofloxacin 750mg po q48 (would continue until 07/04/24) acute metabolic acidosis sodium bicarb, monitor Recent common femoral DVT Continue Eliquis Given report of coffee-ground emesis monitor hemoglobin closely, does not appear to be actively bleeding now though, continue empiric PPI HCV cirrhosis with ascites Status post 4 L paracentesis no SBP, given albumin CKD 3 Stable Coronary artery disease Eliquis, statin Full code reason for continued hospitalization: monitoring electrolytes, defervesence Quality Stroke Does the patient have a stroke diagnosis?: No VTE Prior VTE?: No VTE Risk Level:: Medical - moderate - high VTE Device Contraindication: Treatment Not Indicated VTE Drug Contraindication: N/A - Med Ordered
[2024-06-28] MEDS: 0.9 % Sodium Chloride Flush 3 ML SYRINGE IVFLUSH ×3 (09:11→19:46)
[2024-06-28] MEDS: levoFLOXacin 750 MG TABLET PO (09:12)
[2024-06-28] MEDS: Midodrine HCl 10 MG TABLET PO ×3 (09:12→19:46)
[2024-06-28] MEDS: Potassium Chloride ER 20 MEQ TAB.ER.PRT 40 MEQ PO (09:12)
[2024-06-28] MEDS: Magnesium Oxide 400 MG TABLET PO (09:13)
[2024-06-28] MEDS: Folic Acid 1 MG TABLET PO (09:13)
[2024-06-28] MEDS: Sodium Bicarbonate 650 MG TABLET PO ×3 (09:13→19:46)
[2024-06-28] MEDS: Escitalopram Oxalate 20 MG TABLET PO (09:13)
[2024-06-28] MEDS: Multivitamin TABLET 1 TAB PO (09:13)
[2024-06-28] MEDS: Apixaban 5 MG TABLET PO ×2 (09:13→19:46)
[2024-06-28] MEDS: Lactulose 20 GM/30 ML SOLUTION PO ×2 (09:13→19:46)
[2024-06-28] MEDS: Finasteride 5 MG TABLET PO (09:13)
[2024-06-28] MEDS: Gabapentin 100 MG CAPSULE 200 MG PO ×2 (09:13→19:46)
[2024-06-28 12:29] VITALS: BP 110/67; PULSE 108; RESP 16; TEMP 36.2; O2SAT 96
[2024-06-28 16:00] VITALS: BP 95/59; PULSE 118; RESP 12; TEMP 36.5; O2SAT 97
[2024-06-28 19:25] VITALS: BP 107/60; PULSE 114; RESP 18; TEMP 36.7; O2SAT 96
[2024-06-28] MEDS: Mirtazapine 7.5 MG TABLET 22.5 MG PO (19:45)
[2024-06-28] MEDS: Tamsulosin HCL 0.4 MG CAPSULE PO (19:46)
[2024-06-28] MEDS: Melatonin 3 MG TABLET 6 MG PO (19:46)
[2024-06-28] MEDS: Atorvastatin Calcium 10 MG TABLET PO (19:46)
[2024-06-29 03:02] VITALS: BP 132/75; PULSE 100; RESP 18; TEMP 36.8; O2SAT 100
[2024-06-29] MEDS: Omeprazole 20 MG CAPSULE.DR PO (05:40)
[2024-06-29 07:23] VITALS: PULSE 102; RESP 18; TEMP 36.2; O2SAT 98
[2024-06-29] MEDS: Magnesium Oxide 400 MG TABLET PO (09:12)
[2024-06-29] MEDS: Folic Acid 1 MG TABLET PO (09:12)
[2024-06-29] MEDS: Gabapentin 100 MG CAPSULE 200 MG PO (09:13)
[2024-06-29] MEDS: Multivitamin TABLET 1 TAB PO (09:13)
[2024-06-29] MEDS: Sodium Bicarbonate 650 MG TABLET PO (09:13)
[2024-06-29] MEDS: Lactulose 20 GM/30 ML SOLUTION PO (09:13)
[2024-06-29] MEDS: Finasteride 5 MG TABLET PO (09:13)
[2024-06-29] MEDS: Escitalopram Oxalate 20 MG TABLET PO (09:13)
[2024-06-29 09:16] VITALS: BP 99/61
[2024-06-29] MEDS: Midodrine HCl 10 MG TABLET PO (09:16)
[2024-06-29] MEDS: 0.9 % Sodium Chloride Flush 3 ML SYRINGE IVFLUSH (09:19)
[2024-06-29] MEDS: Apixaban 5 MG TABLET PO (09:21)
--- NOTE | 2024-06-29 11:05 | MHC.CLN ---
NUTRITION DIET=REGULAR, PUREE. DIET LIBERALIZED FROM 2 GRAM SODIUM TO REGULAR TO PROMOTE PO INTAKE. SKIN WITH DTI TO COCCYX AND REDNESS TO BILATERAL HEELS. ENSURE MAX BID TO PROMOTE SKIN INTEGRITY. SUPPLEMENT PROVIDES 300 KCALS, 60 G PROTEIN. PO INTAKE VARIABLE. FOLLOW FOR PO INTAKE AND SKIN INTEGRITY.
--- NOTE | 2024-06-29 11:37 | P.DS_ITS ---
DS: Providers Provider Date of Service: 06/29/24 Date of admission: 06/25/24 23:51 Date of discharge: 06/29/24 Primary care physician: Bing Doan MD Consults: 06/26/24 13:09 Consult to Wound Care Routine Reason for consultation: skin breakdown Has provider been notified: No DS: Diagnosis Discharge Diagnosis (1) Cirrhosis of liver with ascites: Status: Acute (2) UTI (urinary tract infection): Status: Acute (3) Severe sepsis: Status: Acute (4) Vomiting: Status: Acute (5) Chronic indwelling Ngo catheter: Status: Acute (6) Bacteremia due to Proteus species: Status: Acute (7) Metabolic acidosis: Status: Acute (8) Hypomagnesemia: Status: Acute DS: Summary Hospital Course Hospital Course: Admission note HPI A 68 years old male with PMH of CVA, Hep C w cirrhosis, chronic ngo , from LTC presents to ED with altered mentation, fever and vomiting. \The patient was unable to provide any significant history as he is lethargic and febrile. EMS, ER provider reported that he had abrupt onset fever today with associated vomiting, feeling sicke and becoming altered. reported vomiting at facility and once in ED, reported coffee ground color one time. no hematemesis reported. 4 L Paracentesis done in ED. pending lab work. started on broad spectrum antibiotics and admitted for further work up and management. Hospital course The patient was treated for: # Acute metabolic encephalopathy due to severe sepsis due to urinary tract infection due to chronic Ngo complicated by proteus mirabilis bacteremia treated with broad spectrum IV antibiotics then switched to Levofloxacin 750mg po q48 to finish total of 14 days of antibiotics. # CKD3 with acute metabolic acidosis. started Sodium bicarb with fair response. To continue with Sodium bicarb on discharge. # Recent common femoral DVT on Eliquis. Given report of coffee-ground emesis monitor hemoglobin closely, does not appear to be actively bleeding as H&H remained stable and no recurrence of event. unclear if the reported event , continue PO Pantoprazole upon discharge. # HCV cirrhosis with ascites. Status post 4 L paracentesis no SBP, given albumin. To continue with home medications of Lactulose and Midodrine. monitor fluid status. Discharge plan Continue Levaquin 750 mg Q2 days. for total of 5 more doses. Continue Sodium bicarbonate twice daily Resume Eliquis and Pantoprazole continue rest of home medications Time Attestation Discharge Coordination Time (in mins): 43 Quality: Safe Use of Opioids Does Pt have an Active Cancer Diagnosis on the Problem List?: No Quality: Stroke Does the patient have a stroke diagnosis?: No Physical Exam Vital Signs: Vital Signs: Last Vital Signs Temp 97.2 F 06/29/24 07:23 Pulse 102 H 06/29/24 07:23 Resp 18 06/29/24 07:23 BP 99/61 06/29/24 09:16 Pulse Ox 98 06/29/24 07:23 O2 Del Method Room Air 06/29/24 07:23 BMI result Body Mass Index 26.8 Const: Other: Constitutional : interactive, not in distress Cardiovascular : no JVP, no lower extremity edema Respiratory : bilateral chest movement, not in resp distress , on RA Gastrointestinal: soft, lax, Non tender Skin : Warm, Dry UrologY: Ngo in place Neurological : Alert & oriented to self and place, right sided hemiplegia, speech preserved DS: Data Data Completed and Pending Labs on day of discharge: Preliminary micro results at discharge 06/25/24 22:22 Anaerobic Culture - Preliminary Paracentesis Fluid No growth to date. Imaging Chest x-ray: Radiologist's impression: CT ABd IMPRESSION: 1. Mildly limited examination as described above. There is cirrhosis with generalized 3rd spacing of fluid, including large volume ascites and edema throughout the intra-abdominal compartment and body wall soft tissues. These findings limit evaluation for acute inflammatory processes. 2. Colonic diverticulosis. 3. Mild pneumobilia, possibly related to recent intervention or prior sphincterotomy. Alternatively, infection may produce a similar appearance. Clinical correlation is advised. This document has been electronically signed by: Ze Sood MD on 06/26/2024 00:18:16 Discharge Plan Discharge Anticipated Discharge Date/Time: 06/29/24 11:31 Patient Disposition: Xfer SNF Discharge Diagnosis: MDR PRoteus UTI and Bacteremia Referrals: [facility] [Outside] - 1 Week Bing Doan MD [Primary Care Provider] - 1 Week Discharge Medications: New levofloxacin 750 mg Tablet 750 mg PO Q48H Qty: 5 0RF sodium bicarbonate 650 mg Tablet 650 mg PO BID Qty: 180 0RF Continued multivitamin Tablet 1 tab PO DAILY acetaminophen 325 mg Tablet 650 mg PO Q6H PRN (Reason: Fever Or Pain) atorvastatin 10 mg Tablet 10 mg PO DAILY polyvinyl alcohol 1.4 % Drops 1 drp OPHTHALMIC (EYE) QID dextrose [Glucose Gel] 40 % Gel 10 g PO Q15M PRN (Reason: Hypoglycemia) Rx Instructions: until symptoms of low blood sugar are controlled metformin 850 mg Tablet 850 mg PO BIDWM Triad Wound Dressing Paste 1 appl TOPICAL TID Rx Instructions: APPLY TO SACRUM/INNER THIGH pantoprazole 20 mg Tablet,Delayed Release (Dr/Ec) 20 mg PO DAILY@0630 magnesium hydroxide [Milk of Magnesia] 400 mg/5 mL Suspension 30 ml PO DAILY PRN (Reason: Constipation) tamsulosin [Flomax] 0.4 mg Capsule 0.8 mg PO BEDTIME bisacodyl 10 mg Suppository 10 mg ME DAILY PRN (Reason: Constipation) Fleet Enema 19-7 gram/118 mL Enema 118 ml ME DAILY PRN (Reason: Constipation) folic acid 1 mg Tablet 1 mg PO DAILY mirtazapine [Remeron] 15 mg Tablet 22.5 mg PO BEDTIME gabapentin 100 mg Capsule 200 mg PO BID glucagon 1 mg Recon Soln 1 mg SUBCUT Q20M PRN (Reason: Hypoglycemia) Rx Instructions: until target blood sugar attained finasteride 5 mg Tablet 5 mg PO DAILY midodrine 10 mg Tablet 10 mg PO TIDWM Rx Instructions: do not give last dose of day after 6PM or within 4 hrs of bedtime escitalopram oxalate [Lexapro] 20 mg Tablet 20 mg PO DAILY cholestyramine (with sugar) 4 gram Powder 4 g PO DAILY Rx Instructions: administer w/meal; avoid other meds within 1hr before or 4-6hr after dose lactulose 10 gram/15 mL Solution 10 g PO Q12H PRN (Reason: Constipation) apixaban 5 mg Tablet 5 mg PO BID baclofen 5 mg Tablet 5 mg PO TID magnesium oxide 400 mg magnesium Tablet 400 mg PO DAILY Discharge Orders: Discharge Order (Routine); Ordered 06/29/24 Ordered By: Tawanna Mandel Diet: Advance to usual diet Activity on Discharge: As tolerated Stand Alone Forms: Patient Portal Discharge page Print Language: Swedish Care Plan Goals: Continue Levaquin 750 mg Q2 days. for total of 5 more doses. Continue Sodium bicarbonate twice daily Resume Eliquis and Pantoprazole continue rest of home medications Health Concerns: UTI Bacteremia metabolic acidosis Plan of Treatment: Antibiotics Sodium bicarbonate Assessment: as above
[2024-06-29 11:44] VITALS: BP 113/63; PULSE 112; RESP 14; TEMP 36.4; O2SAT 98
[2024-06-29 13:33] LABS: Hematocrit 29.4 % (42.0-52.0); Hemoglobin 8.9 g/dl (14.0-18.0); Mean Corpuscular HGB Conc 30.3 g/dl (31.0-36.0); Mean Corpuscular Hemoglobin 26.6 pg (27.0-33.0); Mean Platelet Volume 10.8 fL (9.4-12.4); Platelet Count 124 X10*3/uL (160-400); Red Blood Count 3.34 X10*6/uL (4.60-5.80); Red Cell Distribution Width 16.2 % (11.0-16.0)
[2024-06-29 13:54] LABS: Alanine Aminotransferase 45 U/L (0-40); Albumin Level 2.5 g/dL (3.5-5.0); Alkaline Phosphatase 91 U/L (39-117); Anion Gap 9 (12-20); Aspartate Amino Transferase 86 U/L (5-37); Bilirubin Direct < 0.2 mg/dL (0.0-0.5); Bilirubin Total 0.2 mg/dL (0.0-1.0); Blood Urea Nitrogen 38 mg/dL (9-16); Calcium 7.7 mg/dL (8.4-10.2); Carbon Dioxide 22 mmol/L (22-29); Chloride 112 mmol/L (96-108); Creatinine Clr Calc Pharmacy 47.5; Estimated Glomerular Filt Rate 49; Glucose Random 193 mg/dL (60-115); Magnesium 1.7 mg/dL (1.6-2.6); Potassium 3.8 mmol/L (3.3-5.1); Sodium 139 mmol/L (135-145); Total Protein 5.9 g/dL (6.5-8.0)
[2024-06-29 14:49] VITALS: BP 103/52; PULSE 110; RESP 14; TEMP 36.6; O2SAT 99
== END 2024-06-29 17:02 | disposition skilled nursing facility (03) | DRG 698 ==
LOC: HO.ED 21:15 → HO.EDOVER 23:58 → HO.S3 06-26 07:29
PROVIDERS: Internal Medicine; Admitting Provider Student in an Organized Health Care Education/Training Program; Emergency Provider Emergency Medicine; PCP Internal Medicine; Visit Provider Student in an Organized Health Care Education/Training Program
DX: T83.511A Infection and inflammatory reaction due to indwelling urethral catheter, initial encounter (principal); A41.9 Sepsis, unspecified organism; R65.20 Severe sepsis without septic shock; G93.41 Metabolic encephalopathy; R18.8 Other ascites; I69.351 Hemiplegia and hemiparesis following cerebral infarction affecting right dominant side; E87.21 Acute metabolic acidosis; N39.0 Urinary tract infection, site not specified; I25.10 Atherosclerotic heart disease of native coronary artery without angina pectoris; N18.30 Chronic kidney disease, stage 3 unspecified; E83.42 Hypomagnesemia; E87.5 Hyperkalemia; B96.4 Proteus (mirabilis) (morganii) as the cause of diseases classified elsewhere; K74.69 Other cirrhosis of liver; Z20.822 Contact with and (suspected) exposure to COVID-19; Z86.718 Personal history of other venous thrombosis and embolism; Z86.19 Personal history of other infectious and parasitic diseases; Z79.01 Long term (current) use of anticoagulants; Z79.84 Long term (current) use of oral hypoglycemic drugs; Z79.899 Other long term (current) drug therapy
CPT/HCPCS: 0241U; 36415; 71045; 74176; 80048; 80053; 80076; 81001; 82042; 82140; 82803; 83605; 83615; 83735; 83880; 84157; 85025; 85027; 85610; 87040; 87070; 87073; 87077; 87086; 87088; 87186; 87205; 89051; 93005; 99285; C1758; J0131; J1644; J2004; J2470; J2543; J3371; J3475; J7120; P9047

== ENCOUNTER → 2024-06-25 21:05 | Outpatient (BNV) | payer MEDICARE, MEDICAID, SELFPAY | PROVIDERS: Emergency Provider Emergency Medicine; PCP Internal Medicine; Visit Provider Radiology Diagnostic Radiology | DX: J98.11 Atelectasis (principal); J90 Pleural effusion, not elsewhere classified; K70.31 Alcoholic cirrhosis of liver with ascites | CPT/HCPCS: 71045; 74176 ==

== ENCOUNTER → 2024-06-25 21:23 | Outpatient (BNV) | payer MEDICARE, MEDICAID, SELFPAY | PROVIDERS: Admitting Provider Student in an Organized Health Care Education/Training Program; Emergency Provider Emergency Medicine; PCP Internal Medicine; Visit Provider Internal Medicine | DX: R00.0 Tachycardia, unspecified (principal) | CPT/HCPCS: 93010 ==

== ENCOUNTER → 2024-06-25 23:51 | Outpatient (BNV) | payer MEDICARE, MEDICAID, SELFPAY | PROVIDERS: Admitting Provider Student in an Organized Health Care Education/Training Program; Emergency Provider Emergency Medicine; PCP Internal Medicine; Visit Provider Student in an Organized Health Care Education/Training Program | DX: A41.9 Sepsis, unspecified organism (principal); R65.20 Severe sepsis without septic shock; T83.511A Infection and inflammatory reaction due to indwelling urethral catheter, initial encounter; R11.10 Vomiting, unspecified; Z96.0 Presence of urogenital implants; K70.31 Alcoholic cirrhosis of liver with ascites; E87.29 Other acidosis | CPT/HCPCS: 99223; 99232 ==

== ENCOUNTER 2024-07-16 02:49 | Inpatient (IN) | payer MEDICARE, MEDICAID, SELFPAY ==
[2024-07-16] VITALS (29 sets, daily range): BP systolic 80–116; BP diastolic 42–81; PULSE 85–115; RESP 12–22; TEMP 36.4–36.9; O2SAT 95–100; BMI 31.4
--- NOTE | ~2024-07-16 | US_ITS ---
EXAMINATION: US ABDOMEN LIMITED CLINICAL INFORMATION: Ascites check. COMPARISON: None available. TECHNIQUE: Real-time imaging of all 4 quadrants of the abdomen for ascites check. FINDINGS: There is large volume anechoic ascites seen in all 4 quadrants. US/US abdomen limited IMPRESSION: Large volume ascites in all 4 quadrants. Electronically signed by: Atul Wilson MD 07/19/2024 09:46 AM [facility]
--- NOTE | ~2024-07-16 | CT_ITS ---
CLINICAL HISTORY: ngo catheter placement CT abdomen and pelvis without contrast Comparison: CT/[place]/SR - CT ABDOMEN PELVIS WO IV CON - 06/25/24 23:09 EST Findings: Basilar hypoventilatory changes. The liver demonstrates morphologic changes of cirrhosis. Evaluation for intrahepatic lesion limited in the absence of IV contrast. Gallbladder is absent. No findings of biliary obstruction. Pneumobilia suggesting sphincterotomy. Pancreas is unremarkable. Unremarkable adrenal glands. Top normal splenic size. Ngo catheter appears appropriately positioned within a decompressed bladder. Mild bilateral hydroureteronephrosis similar to the prior exam. No obstructing lesions. Bowel appears nonobstructed. Normal appendix. Large volume ascites. No adenopathy or vascular dilation. Subcutaneous edema. The bones are intact. Lumbar fusion. IMPRESSION: Cirrhotic hepatic morphology large volume ascites. Ngo catheter appears to be appropriately positioned within the bladder. Mild bilateral hydroureteronephrosis similar to the prior exam without obstructing lesion. This document has been electronically signed by: Silke Montoya MD on 07/16/2024 06:52:34
--- NOTE | ~2024-07-16 | CT_ITS ---
CLINICAL HISTORY: hypoxic CT chest without contrast Comparison: CR - XR CHEST 1V - 07/16/24 03:16 EST Findings: The heart size is normal. Heavy coronary calcium. Nonaneurysmal aorta. The visualized thyroid and mediastinum are unremarkable. Decompressed esophagus. No chest wall lesions or axillary adenopathy. Bibasilar hypoventilatory changes. Irregular filling defects seen within the trachea at the level of the calixto extending into the ejgup-dbucjxe-ejmr-left mainstem bronchus and into the lower lobe bronchi, likely mucous. The upper abdomen is discussed on the concurrent CT abdomen pelvis report. The bones are intact. IMPRESSION: 1. Patchy areas of hypoventilation likely related to multifocal mucous plugging greater on the right than the left 2. No dense consolidation. 3. Heavy coronary calcium. This document has been electronically signed by: Silke Montoya MD on 07/16/2024 06:55:26
--- NOTE | ~2024-07-16 | US_ITS ---
Ultrasound paracentesis History: Ascites. Risks and benefits and possible complications were discussed with the patient and consent form was signed. A safe pocket of ascitic fluid was identified using ultrasound guidance, and the overlying skin was marked. The abdomen prepped and draped in sterile fashion. 1% lidocaine was used as a local anesthetic. Using ultrasound guidance, a 5 fr catheter was placed into the ascitic pocket. 3.0 liters of yellow fluid was removed passively. The catheter was then removed. A few surgical device sales representative images from before and after the examination were obtained. The procedure was performed by Baldo Trujillo PA-C and supervised by Dr. Wilson. US/US paracentesis abd w/image Impression: Ultrasound-guided paracentesis as described above. No immediate complications Electronically signed by: Atul Wilson MD 07/22/2024 05:07 PM [place]
--- NOTE | ~2024-07-16 | XR_ITS ---
CLINICAL HISTORY: reocurrent pna 1 view chest x-ray Comparison: 06/25/2024 09:58 PM EST: CR: XR CHEST 1V (08:58 PM CLOTHES SEPARATOR) Findings: Low lung volumes. Left basilar subsegmental atelectasis or infiltrate and layering effusion, similar to the prior chest radiograph. Normal size heart. No acute fracture. IMPRESSION: Left basilar subsegmental atelectasis or infiltrate and layering effusion, similar to the prior chest radiograph. Low lung volumes This document has been electronically signed by: Jimmie Coombs MD, PHD on 07/16/2024 03:34:51
--- NOTE | 2024-07-16 03:10 | ECG_ITS ---
Test Reason : AMS Blood Pressure : */* mmHG Vent. Rate : 111 BPM Atrial Rate : 111 BPM P-R Int : 124 ms QRS Dur : 80 ms QT Int : 334 ms P-R-T Axes : 49 -7 66 degrees QTcB Int : 454 ms Sinus tachycardia Low voltage QRS Cannot rule out Anterior infarct , age undetermined Abnormal ECG When compared with ECG of 25-Jun-2024 22:59, Minimal criteria for Anterior infarct are now Present Referred By: Luisa Thayer Electronically Signed By: ASCENCION HOPSON
[2024-07-16 03:49] LABS: Basophils Absolute Auto 0.1 X10*3/uL (0.0-0.2); Basophils Percent Auto 0.6 % (0-2); Eosinophils Absolute Auto 0.2 X10*3/uL (0.0-0.4); Eosinophils Percent Auto 2.8 % (0-4); Hematocrit 29.5 % (42.0-52.0); Hemoglobin 9.4 g/dl (14.0-18.0); Imm Gran Abs Auto 0.04 X10*3/uL (0.00-0.03); Imm Gran Pct Auto 0.5 % (0.0-0.4); Lymphocytes Absolute Auto 1.5 X10*3/uL (1.2-4.9); Lymphocytes Percent Auto 18.7 % (20-40); Mean Corpuscular HGB Conc 31.9 g/dl (31.0-36.0); Mean Corpuscular Hemoglobin 27.6 pg (27.0-33.0); Mean Corpuscular Volume 86.5 fL (80.0-98.0); Mean Platelet Volume 9.2 fL (9.4-12.4); Monocytes Absolute Auto 0.6 X10*3/uL (0.1-1.2); Monocytes Percent Auto 7.3 % (2-11); Neutrophils Absolute Auto 5.5 x10*3/uL (2.0-8.3); Neutrophils Percent Auto 70.1 % (45-73); Platelet Count 228 X10*3/uL (160-400); Red Blood Count 3.41 X10*6/uL (4.60-5.80); Red Cell Distribution Width 16.4 % (11.0-16.0); White Blood Count 7.9 X10*3/uL (4.8-10.8)
[2024-07-16 03:51] LABS: MANUAL DIFF FLAG NO
[2024-07-16 03:53] LABS: Venous Blood Gas Refer to POC result
[2024-07-16 03:55] LABS: VBG Base Excess -3.9 mmol/L; VBG HCO3 19 mmol/L (22-26); VBG pCO2 30 mmHg; VBG pH 7.42 (7.32-7.43); VBG pO2 35 mmHg
[2024-07-16 03:57] LABS: Appearance Urine Cloudy; Color Urine Yellow; Glucose Urine UA Negative (Negative); Leukocyte Esterase Urine Small (1+) (Negative); Nitrite Urine Negative (Negative); Specific Gravity - Urine 1.015 (1.005-1.025); UMIC TRIGGER UACC YES; Urine Blood Moderate (2+) (Negative); Urine Ketones Negative (Negative); Urine Protein Trace mg/dL (Neg-Trace)
[2024-07-16 03:57] LABS: INTERNATIONAL NORM RATIO 1.2 (0.9-1.1); Prothrombin Time 13.5 SEC (10.9-12.4)
[2024-07-16 04:00] LABS: Ammonia 25 umol/L (13-55)
[2024-07-16 04:04] LABS: Bacteria Urine None Seen (None Seen); Calcium Oxalate Crystals Urine Present; RBC Urine >20 /HPF (0-2); Squamous Epithelial Cell Urine 0-2 /HPF (0-2); UACC Culture Trigger YES
[2024-07-16 04:07] LABS: Amphetamine Screen Urine Not Detected (Not Detect); Barbiturates, Urine Not Detected (Not Detect); Benzodiazepines Screen Urine Not Detected (Not Detect); Buprenorphine Scr Not Detected (Not Detect); Cannabinoid Screen Urine Not Detected (Not Detect); Cocaine Screen Urine Not Detected (Not Detect); Fentanyl, urine POSITIVE (Not Detect); Methadone Screen, Urine Not Detected (Not Detect); Opiate Screen Urine Not Detected (Not Detect); Oxycodone Screen Urine Not Detected (Not Detect); Phencyclidine Screen Urine Not Detected (Not Detect)
[2024-07-16 04:10] LABS: B Type Natriuretic Peptide 66 pg/mL (<100)
[2024-07-16 04:15] LABS: Alanine Aminotransferase 8 U/L (0-40); Albumin Level 2.9 g/dL (3.5-5.0); Alkaline Phosphatase 69 U/L (39-117); Anion Gap 16 (12-20); Aspartate Amino Transferase 24 U/L (5-37); Bilirubin Direct 0.2 mg/dL (0.0-0.5); Bilirubin Total 0.3 mg/dL (0.0-1.0); Blood Urea Nitrogen 42 mg/dL (9-16); Calcium 9.3 mg/dL (8.4-10.2); Carbon Dioxide 18 mmol/L (22-29); Chloride 105 mmol/L (96-108); Creatinine Clr Calc Pharmacy 60.4; Estimated Glomerular Filt Rate 53; Glucose Random 97 mg/dL (60-115); Magnesium 1.7 mg/dL (1.6-2.6); Potassium 5.4 mmol/L (3.3-5.1); Sodium 134 mmol/L (135-145); Total Protein 7.2 g/dL (6.5-8.0); Troponin-I High Sensitivity 6.6 ng/L (<3.5-35.0)
[2024-07-16 04:18] LABS: Lactic Acid 2.3 mmol/L (0.5-2.0)
--- NOTE | 2024-07-16 04:25 | ED.GENADULT ---
HPI - General Adult General Chief complaint: Altered Mental Status Stated complaint: SNF; AMS, Hyoptensive, High K, Chronic UTI -Cath Time Seen by Provider: 07/16/24 03:10 Source: EMS Mode of arrival: EMS Limitations: other History of Present Illness ED Provider: Dr. Luisa Thayer HPI narrative: Patient comes to the emergency room via ambulance. Staff from the skilled nursing reported earlier today patient discharged from [facility], treated for hyperkalemia and sepsis. Is unclear if patient was seen a few days ago for sepsis and then discharged and then returned today to [facility] for treatment of hyperkalemia and then discharged again. Patient has a chronic Smith catheter. According to the staff, they do not believe that patient's mental status is back to normal so they sent him here. According to the staff, patient blood pressure has BP of 70/50 earlier today. However, per EMS patient was never hypotensive for them. Patient is poor historian and can not give much history. Related Data Home Medications ?Medication ?Instructions ?Recorded ?Confirmed acetaminophen 325 mg tablet 650 mg PO Q6H PRN Fever Or Pain 06/26/24 06/26/24 apixaban 5 mg tablet 5 mg PO BID 06/26/24 06/26/24 atorvastatin 10 mg tablet 10 mg PO DAILY 06/26/24 06/26/24 baclofen 5 mg tablet 5 mg PO TID 06/26/24 06/26/24 bisacodyl 10 mg rectal suppository 10 mg NV DAILY PRN Constipation 06/26/24 06/26/24 cholestyramine (with sugar) 4 gram 4 g PO DAILY 06/26/24 06/26/24 oral powder dextrose 40 % oral gel (Glucose 10 g PO Q15M PRN Hypoglycemia 06/26/24 06/26/24 Gel) escitalopram oxalate 20 mg tablet 20 mg PO DAILY 06/26/24 06/26/24 (Lexapro) finasteride 5 mg tablet 5 mg PO DAILY 06/26/24 06/26/24 folic acid 1 mg tablet 1 mg PO DAILY 06/26/24 06/26/24 gabapentin 100 mg capsule 200 mg PO BID 06/26/24 06/26/24 glucagon 1 mg solution for 1 mg subcut Q20M PRN Hypoglycemia 06/26/24 06/26/24 injection lactulose 10 gram/15 mL oral 10 g PO Q12H PRN Constipation 06/26/24 06/26/24 solution magnesium hydroxide 400 mg/5 mL 30 ml PO DAILY PRN Constipation 06/26/24 06/26/24 oral suspension (Milk of Magnesia) magnesium oxide 400 mg PO DAILY 06/26/24 06/26/24 metformin 850 mg tablet 850 mg PO BIDWM 06/26/24 06/26/24 midodrine 10 mg tablet 10 mg PO TIDWM 06/26/24 06/26/24 mirtazapine 15 mg tablet (Remeron) 22.5 mg PO BEDTIME 06/26/24 06/26/24 multivitamin 1 tab PO DAILY 06/26/24 06/26/24 pantoprazole 20 mg tablet,delayed 20 mg PO DAILY@0630 06/26/24 06/26/24 release polyvinyl alcohol 1.4 % eye drops 1 drp ophthalmic (eye) QID 06/26/24 06/26/24 sodium phosphates 19 gram-7 118 ml NV DAILY PRN Constipation 06/26/24 06/26/24 gram/118 mL enema (Fleet Enema) tamsulosin 0.4 mg capsule (Flomax) 0.8 mg PO BEDTIME 06/26/24 06/26/24 wound dressings (Triad Wound 1 appl topical TID 06/26/24 06/26/24 Dressing paste) Previous Rx's ?Medication ?Instructions ?Recorded levofloxacin 750 mg tablet 750 mg PO Q48H #5 tabs 06/29/24 sodium bicarbonate 650 mg tablet 650 mg PO BID #180 tabs 06/29/24 Allergies Allergy/AdvReac Type Severity Reaction Status Date / Time No Known Allergies Allergy Verified 07/16/24 03:07 Review of Systems Review of Systems: Yes Other (Patient is poor historian) [facility] Past Medical History Medical History Chronic indwelling Smith catheter Cirrhosis of liver with ascites Hepatitis C Social History Social History Household Members: Unknown / Unable to assess Alcohol intake: former Patient Tobacco Use Status: Tobacco use Unknown Smoked in Last 30 Days: No Use of substances other than those prescribed or required for medical reasons: No Advance Directives: No Do you have a plan to hurt others: No Plan service: No Physical Exam ED Vital Signs: Vital Signs - 24 hr 07/16/24 03:00 07/16/24 04:27 07/16/24 06:05 Temperature 98.4 F 98.0 F Pulse Rate 106 H 112 H 104 H Respiratory Rate 18 20 16 Blood Pressure 104/70 116/81 109/70 Pulse Oximetry 100 100 97 Oxygen Delivery Method Oxymask Oxymask Room Air Oxygen Flow Rate 3 07/16/24 06:52 Temperature Pulse Rate 106 H Respiratory Rate 17 Blood Pressure Pulse Oximetry Oxygen Delivery Method Oxygen Flow Rate BMI result Body Mass Index 31.4 Const Other: Appearance: Alert, does not seem to be in any distress, alert and oriented x2 Eyes: Pupils equal, round and reactive to light. ENT: Pharynx normal. Neck: Normal inspection. Neck supple. No lymph nodes noted. No crepitus CVS: Normal heart rate and rhythm. Pulses normal. Normal S1 and S2 Respiratory: No respiratory distress. Breath sounds normal. No Wheezing. No rales Abdomen: Soft and nontender. No rigidity. No distention. Skin: Skin warm and dry. Normal skin color. Normal skin turgor. 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 No motor deficit. No sensory deficit. Moving all extremities. No slurred speech. CN 2 through 12 grossly intact Psych: calm, cooperative Course Course Course Narrative: Patient's blood pressure has been above 100, no episodes of hypotension. Patient is a poor historian but states that he feels well, has no pain anywhere. It was noted that when patient gets turned to the sites, his oxygen drops to the low 70s. Patient was put on a an OxyMask Patient denies any difficulty breathing. We requested records from [facility], report pending Medications Administered Discontinued Medications Generic Name Dose Route Start Last Admin Trade Name Freq PRN Reason Stop Dose Admin Albuterol Sulfate 10 mg 07/16/24 06:40 07/16/24 06:50 Albuterol Sulfate (0.083%) 2.5 Mg/3 Ml Vial.Neb INHALE 07/16/24 06:41 10 mg ONCE ONE Administration Cefepime HCl 2 gm in 50 mls @ 100 mls/hr 07/16/24 04:20 07/16/24 06:15 Maxipime IV 07/16/24 04:49 Infused ONCE ONE Infusion Sodium Chloride 1,000 mls @ 999 mls/hr 07/16/24 04:20 07/16/24 04:55 Ns IVCONT 07/16/24 05:20 999 mls/hr .Q1H1M ONE Administration Calcium Gluconate 2 gm in 100 mls @ 50 mls/hr 07/16/24 04:20 07/16/24 04:50 Calcium Gluconate IV 07/16/24 06:19 50 mls/hr ONCE ONE Administration Sodium Bicarbonate 50 meq 07/16/24 06:41 07/16/24 07:04 Sodium Bicarbonate 8.4% 50 Meq/50 Ml Syringe IVPUSH 07/16/24 06:42 50 meq ONCE ONE Administration Medical Decision Making Medical Decision Making [facility] Narrative: Patient's blood pressure have been steadily above 100, no episodes of hypotension, no fever My interpretation of labs: Patient's white blood cell count 7.9, hematology hematocrit and platelets at baseline, coagulation at baseline, patient's venous blood gases show a normal pH, normal pCO2, slightly decreased bicarb which is chronic for the patient. Patient's potassium is 5.4. According to EMS earlier today, patient was in [facility] for hyperkalemia and was discharged with a potassium of 5.4. Lactic acid is 2.3, normal LFTs., serology negative for influenza COVID and RSV. Bicarb, albuterol nebulization, calcium gluconate. Seems that patient was discharged from [facility] with a potassium 5.4 per EMS report. EKG does not show any peaked T-waves. My interpretation: Sinus tachycardia, heart rate 111, no ST segment depression or elevation, no T-wave inversion, QTC 454 Last time that the patient was here, patient was treated for cirrhosis, UTI, bacteremia due to UTI with Proteus species. Patient was complaining of suprapubic abdominal pain. Patient has a Smith catheter in place. However, there is not a significant amount of urine in the bag. A bladder scan shows over 999 mL of urine in the bladder. It is expected the patient's urine will be positive for UTI, as he has a chronic Smith catheter. Patient's penis and scrotum are significantly swollen, very edematous. We will try to flush the urinary catheter with a removing the Smith. However, it is possible that we may have to change it. It is probably going to be significantly difficult reinserting a catheter due to the edema Patient's chest x-ray shows almost a similar x-ray done on his previous admission. Possible atelectasis Patient was given a L of fluid, patient's urinalysis/microbiology shows that the urine is susceptible to cefepime. At this time, 04:40, patient is stable, sepsis is not suspected. We were able to switch the Smith catheter. Still no urine If patient does not move, he is pretty stable. However, with any minimal movement, his oxygen saturation dropped significantly. On room air patient drops to the high 70s/low 80s. Patient constantly on an OxyMask. Chest x-ray shows left basilar subsegmental atelectasis or infiltrate and layering effusion, similar to the prior chest x-ray which was done 20 days ago. It is unclear if patient does actually have pneumonia CT scan of the abdomen/pelvis shows large volume ascites, pt may need therapeutic parecenthesis. Patient has no abdominal pain. SBP not suspected. Smith catheter in place Chest CT pending It is likely that patient will need admission for continues oxygen desaturations. Patient is not O2 dependent. We received labs from [facility], unclear if pt was hospitalized at [facility] or [facility] Sign out given to my colleague Dr. Harrison Differential Diagnosis Differential Diagnoses: The differential diagnosis associated with the presentation includes (Pneumonia, CHF, deconditioning, hyperkalemia) Admission/Observation Consideration of admission/observation: Escalation of care including admission/observation considered (Given patient's multiple comorbidities, urinalysis pending) Lab Data MDM Lab Attestation statement: I reviewed the patient's lab results. 07/16/24 03:44 07/16/24 03:44 Labs: Lab Results 07/16/24 07/16/24 07/16/24 Range/Units 03:44 03:45 03:48 WBC 7.9 (4.8-10.8) X10*3/uL RBC 3.41 L (4.60-5.80) X10*6/uL Hgb 9.4 L (14.0-18.0) g/dl Hct 29.5 L (42.0-52.0) % MCV 86.5 (80.0-98.0) fL MCH 27.6 (27.0-33.0) pg MCHC 31.9 (31.0-36.0) g/dl RDW 16.4 H (11.0-16.0) % Plt Count 228 D (160-400) X10*3/uL MPV 9.2 L (9.4-12.4) fL Immature Gran % (Auto) 0.5 H (0.0-0.4) % Neut % (Auto) 70.1 (45-73) % Lymph % (Auto) 18.7 L (20-40) % [place] % (Auto) 7.3 (2-11) % Eos % (Auto) 2.8 (0-4) % Baso % (Auto) 0.6 (0-2) % Lymph # (Auto) 1.5 (1.2-4.9) X10*3/uL [place] # (Auto) 0.6 (0.1-1.2) X10*3/uL Eos # (Auto) 0.2 (0.0-0.4) X10*3/uL Baso # (Auto) 0.1 (0.0-0.2) X10*3/uL Abs Immat Gran (auto) 0.04 H (0.00-0.03) X10*3/uL Absolute Neuts (auto) 5.5 (2.0-8.3) x10*3/uL Absolute Nucleated RBC 0.000 (0.0-0.012) X10*3/uL Nucleated RBC % (auto) 0.0 (0.0-0.2) /100WBC PT 13.5 H D (10.9-12.4) SEC INR 1.2 H (0.9-1.1) VBG pH (7.32-7.43) VBG pCO2 mmHg VBG pO2 mmHg VBG HCO3 (22-26) mmol/L VBG O2 Saturation % VBG Base Excess mmol/L Sodium 134 L (135-145) mmol/L Potassium 5.4 H D (3.3-5.1) mmol/L Chloride 105 (96-108) mmol/L Carbon Dioxide 18 L (22-29) mmol/L Anion Gap 16 (12-20) BUN 42 H (9-16) mg/dL Creatinine 1.34 (0.5-1.4) mg/dL Estim Creat Clear Calc 60.4 Estimated GFR 53 Random Glucose 97 (60-115) mg/dL Lactic Acid 2.3 H* (0.5-2.0) mmol/L Lactic Acid F/U @ 2Hr (0.5-2.0) mmol/L Calcium 9.3 D (8.4-10.2) mg/dL Magnesium 1.7 (1.6-2.6) mg/dL Total Bilirubin 0.3 (0.0-1.0) mg/dL Direct Bilirubin 0.2 (0.0-0.5) mg/dL AST 24 (5-37) U/L ALT 8 (0-40) U/L Alkaline Phosphatase 69 (39-117) U/L Ammonia 25 (13-55) umol/L Troponin I High Sens 6.6 (<3.5-35.0) ng/L B-Natriuretic Peptide 66 (<100) pg/mL Total Protein 7.2 (6.5-8.0) g/dL Albumin 2.9 L (3.5-5.0) g/dL TSH 3.09 (0.32-4.0) uIU/mL Urine Color Yellow Urine Appearance Cloudy Urine pH 5.0 (5.0-9.0) Ur Specific [place] 1.015 (1.005-1.025) Urine Protein Trace (Neg-Trace) mg/dL Urine Glucose (UA) Negative (Negative) mg/dL Urine Ketones Negative (Negative) mg/dL Urine Blood Moderate (2+) H (Negative) Urine Nitrite Negative (Negative) Ur Leukocyte Esterase Small (1+) H (Negative) Urine RBC >20 H (0-2) /HPF Urine WBC 11-20 H (0-5) /HPF Ur Squamous Epith Cells 0-2 (0-2) /HPF Calcium Oxalate Crystal Present Urine Bacteria None Seen (None Seen) Hyaline Casts 3-5 (0-2) /LPF Urine Opiates Screen Not Detected (Not Detect) Ur Buprenorphine Scrn Not Detected (Not Detect) ng/mL Ur Oxycodone Screen Not Detected (Not Detect) ng/mL Urine Methadone Screen Not Detected (Not Detect) ng/mL Urine Fentanyl Screen POSITIVE H (Not Detect) Ur Barbiturates Screen Not Detected (Not Detect) Ur Phencyclidine Scrn Not Detected (Not Detect) Ur Amphetamines Screen Not Detected (Not Detect) U Benzodiazepines Scrn Not Detected (Not Detect) Urine Cocaine Screen Not Detected (Not Detect) U Marijuana (THC) Screen Not Detected (Not Detect) Influenza Type A (PCR) NEGATIVE (Negative) Influenza Type B (PCR) NEGATIVE (Negative) RSV RNA Qual (PCR) NEGATIVE (Negative) SARS-CoV-2 RNA (RT-PCR) NEGATIVE (Negative) 07/16/24 07/16/24 Range/Units 03:49 06:14 WBC (4.8-10.8) X10*3/uL RBC (4.60-5.80) X10*6/uL Hgb (14.0-18.0) g/dl Hct (42.0-52.0) % MCV (80.0-98.0) fL MCH (27.0-33.0) pg MCHC (31.0-36.0) g/dl RDW (11.0-16.0) % Plt Count (160-400) X10*3/uL MPV (9.4-12.4) fL Immature Gran % (Auto) (0.0-0.4) % Neut % (Auto) (45-73) % Lymph % (Auto) (20-40) % [place] % (Auto) (2-11) % Eos % (Auto) (0-4) % Baso % (Auto) (0-2) % Lymph # (Auto) (1.2-4.9) X10*3/uL [place] # (Auto) (0.1-1.2) X10*3/uL Eos # (Auto) (0.0-0.4) X10*3/uL Baso # (Auto) (0.0-0.2) X10*3/uL Abs Immat Gran (auto) (0.00-0.03) X10*3/uL Absolute Neuts (auto) (2.0-8.3) x10*3/uL Absolute Nucleated RBC (0.0-0.012) X10*3/uL Nucleated RBC % (auto) (0.0-0.2) /100WBC PT (10.9-12.4) SEC INR (0.9-1.1) VBG pH 7.42 (7.32-7.43) VBG pCO2 30 mmHg VBG pO2 35 mmHg VBG HCO3 19 L (22-26) mmol/L VBG O2 Saturation 58.0 % VBG Base Excess -3.9 mmol/L Sodium (135-145) mmol/L Potassium (3.3-5.1) mmol/L Chloride (96-108) mmol/L Carbon Dioxide (22-29) mmol/L Anion Gap (12-20) BUN (9-16) mg/dL Creatinine (0.5-1.4) mg/dL Estim Creat Clear Calc Estimated GFR Random Glucose (60-115) mg/dL Lactic Acid (0.5-2.0) mmol/L Lactic Acid F/U @ 2Hr 2.2 H* (0.5-2.0) mmol/L Calcium (8.4-10.2) mg/dL Magnesium (1.6-2.6) mg/dL Total Bilirubin (0.0-1.0) mg/dL Direct Bilirubin (0.0-0.5) mg/dL AST (5-37) U/L ALT (0-40) U/L Alkaline Phosphatase (39-117) U/L Ammonia (13-55) umol/L Troponin I High Sens (<3.5-35.0) ng/L B-Natriuretic Peptide (<100) pg/mL Total Protein (6.5-8.0) g/dL Albumin (3.5-5.0) g/dL TSH (0.32-4.0) uIU/mL Urine Color Urine Appearance Urine pH (5.0-9.0) Ur Specific [place] (1.005-1.025) Urine Protein (Neg-Trace) mg/dL Urine Glucose (UA) (Negative) mg/dL Urine Ketones (Negative) mg/dL Urine Blood (Negative) Urine Nitrite (Negative) Ur Leukocyte Esterase (Negative) Urine RBC (0-2) /HPF Urine WBC (0-5) /HPF Ur Squamous Epith Cells (0-2) /HPF Calcium Oxalate Crystal Urine Bacteria (None Seen) Hyaline Casts (0-2) /LPF Urine Opiates Screen (Not Detect) Ur Buprenorphine Scrn (Not Detect) ng/mL Ur Oxycodone Screen (Not Detect) ng/mL Urine Methadone Screen (Not Detect) ng/mL Urine Fentanyl Screen (Not Detect) Ur Barbiturates Screen (Not Detect) Ur Phencyclidine Scrn (Not Detect) Ur Amphetamines Screen (Not Detect) U Benzodiazepines Scrn (Not Detect) Urine Cocaine Screen (Not Detect) U Marijuana (THC) Screen (Not Detect) Influenza Type A (PCR) (Negative) Influenza Type B (PCR) (Negative) RSV RNA Qual (PCR) (Negative) SARS-CoV-2 RNA (RT-PCR) (Negative) Independent Interpretation I performed an independent interpretation of an: CT Scan Radiology Impression Discussion of test interpretation with radiology: I have reviewed the radiologist's reading. Radiologist Impression: Basilar hypoventilatory changes. The liver demonstrates morphologic changes of cirrhosis. Evaluation for intrahepatic lesion limited in the absence of IV contrast. Gallbladder is absent. No findings of biliary obstruction. Pneumobilia suggesting sphincterotomy. Pancreas is unremarkable. Unremarkable adrenal glands. Top normal splenic size. Smith catheter appears appropriately positioned within a decompressed bladder. Mild bilateral hydroureteronephrosis similar to the prior exam. No obstructing lesions. Bowel appears nonobstructed. Normal appendix. Large volume ascites. No adenopathy or vascular dilation. Subcutaneous edema. The bones are intact. Lumbar fusion. IMPRESSION: Cirrhotic hepatic morphology large volume ascites. Smith catheter appears to be appropriately positioned within the bladder. Mild bilateral hydroureteronephrosis similar to the prior exam without obstructing lesion. Critical Care Time Critical Care Time Critical Care Time: Yes Total Critical Care Time: 60 Attestation: I have personally provided critical care time. Time includes review of lab data, radiology results, discussion with consultants, and monitoring for potential decompensation. Intervention performed as documented. Discharge Plan Discharge Clinical Impression: Oxygen desaturation, Altered mental status, Acute hyperkalemia, Chronic UTI (urinary tract infection) Patient Disposition: Still a Patient Prescriptions: No Action multivitamin Tablet 1 tab PO DAILY acetaminophen 325 mg Tablet 650 mg PO Q6H PRN (Reason: Fever Or Pain) atorvastatin 10 mg Tablet 10 mg PO DAILY polyvinyl alcohol 1.4 % Drops 1 drp OPHTHALMIC (EYE) QID dextrose [Glucose Gel] 40 % Gel 10 g PO Q15M PRN (Reason: Hypoglycemia) Rx Instructions: until symptoms of low blood sugar are controlled metformin 850 mg Tablet 850 mg PO BIDWM Triad Wound Dressing Paste 1 appl TOPICAL TID Rx Instructions: APPLY TO SACRUM/INNER THIGH pantoprazole 20 mg Tablet,Delayed Release (Dr/Ec) 20 mg PO DAILY@0630 magnesium hydroxide [Milk of Magnesia] 400 mg/5 mL Suspension 30 ml PO DAILY PRN (Reason: Constipation) tamsulosin [Flomax] 0.4 mg Capsule 0.8 mg PO BEDTIME bisacodyl 10 mg Suppository 10 mg NV DAILY PRN (Reason: Constipation) Fleet Enema 19-7 gram/118 mL Enema 118 ml NV DAILY PRN (Reason: Constipation) folic acid 1 mg Tablet 1 mg PO DAILY mirtazapine [Remeron] 15 mg Tablet 22.5 mg PO BEDTIME gabapentin 100 mg Capsule 200 mg PO BID glucagon 1 mg Recon Soln 1 mg SUBCUT Q20M PRN (Reason: Hypoglycemia) Rx Instructions: until target blood sugar attained finasteride 5 mg Tablet 5 mg PO DAILY midodrine 10 mg Tablet 10 mg PO TIDWM Rx Instructions: do not give last dose of day after 6PM or within 4 hrs of bedtime escitalopram oxalate [Lexapro] 20 mg Tablet 20 mg PO DAILY cholestyramine (with sugar) 4 gram Powder 4 g PO DAILY Rx Instructions: administer w/meal; avoid other meds within 1hr before or 4-6hr after dose lactulose 10 gram/15 mL Solution 10 g PO Q12H PRN (Reason: Constipation) apixaban 5 mg Tablet 5 mg PO BID baclofen 5 mg Tablet 5 mg PO TID magnesium oxide 400 mg magnesium Tablet 400 mg PO DAILY levofloxacin 750 mg Tablet 750 mg PO Q48H Qty: 5 0RF sodium bicarbonate 650 mg Tablet 650 mg PO BID Qty: 180 0RF Print Language: Malay
[2024-07-16 04:28] LABS: Influenza A PCR NEGATIVE (Negative); Influenza B PCR NEGATIVE (Negative); Resp Syncy Virus RNA Qual PCR NEGATIVE (Negative); SARS COV2 PCR INHOUSE NEGATIVE (Negative)
--- NOTE | 2024-07-16 04:28 | MHC.EDTECH ---
Patient was biba from snf ,ekg taken and was read by Provider ,blood drawn ,including both sets of blood culture ,and lactic acid ,rsv/covid swab,and urine sample collected ,all sent to lab ,vitals taken ,patient was hooked up to property assessment monitor ,Patient awake and can answer yes and no question ,Patient was reposition with Pillows ,Patient c/o Pain in belly ,Bladder scan done ,Patient has 998 ml in his bladder ,RN Phu and Provider Jeovany aware .All safety measure in Place .
[2024-07-16 04:29] LABS: TSH reflex Free T4 3.09 uIU/mL (0.32-4.0)
[2024-07-16] MEDS: Calcium Gluconate/NaCl,Iso-Osm 2 GM/100 ML PLAST..BAG IV (04:50)
[2024-07-16] MEDS: 0.9 % Sodium Chloride 1,000 ML 999 ML IVCONT ×2 (04:55→12:39)
[2024-07-16] MEDS: cefEPime HCl/D5W 2 GM/50 ML PIGGYBACK IV (05:00)
[2024-07-16 05:48] LABS: Reflex Lactate? Lactic Acid Added
--- NOTE | 2024-07-16 06:17 | MHC.EDTECH ---
2nd lactic acid drawn and sent to lab ,vitals taken .
[2024-07-16 06:36] LABS: ~Lactic Acid-LAB USE ONLY 2.2 mmol/L (0.5-2.0)
[2024-07-16] MEDS: Albuterol Sulfate (0.083%) 2.5 MG/3 ML VIAL.NEB 10 MG INHALE (06:50)
[2024-07-16] MEDS: Sodium Bicarbonate 8.4% 50 MEQ/50 ML SYRINGE IVPUSH (07:04)
--- NOTE | 2024-07-16 07:12 | PC.NURSE ---
Assumed care of pt at 0700. Pt resting in bed quietly, Smith intact, draining 50ml, clear/yellow urine. Bladder scan showed >1000 ml, MD Harrison at bedside for ultrasound scan d/t ?ascites and low urine output. Maintaining O2 sat upright in bed, O2 sat high 90s on RA. Fluids d/c per MD Harrison d/t edema. Bilateral pitting edema lower extremities. Pt denies cp/sob/dizziness. Vitals updated in computer, BP soft, MD Aware. Call [facility]raw within reach, all needs met at this time.
[2024-07-16 08:08] LABS: Anion Gap 14 (12-20); Blood Urea Nitrogen 40 mg/dL (9-16); Calcium 9.2 mg/dL (8.4-10.2); Carbon Dioxide 19 mmol/L (22-29); Chloride 106 mmol/L (96-108); Creatinine Clr Calc Pharmacy 64.3; Estimated Glomerular Filt Rate 57; Glucose Random 108 mg/dL (60-115); Sodium 134 mmol/L (135-145)
[2024-07-16 08:17] LABS: Reflex Lactate? 2 Y
[2024-07-16] MEDS: Lidocaine HCl 1 % MPF 5 ML VIAL INFILTRATI (08:30)
[2024-07-16 09:06] LABS: MN% 85.7 %; PMN% 14.3 %; RBC Peritoneal Fluid < 0.002 X10*6/uL
--- NOTE | 2024-07-16 09:16 | PHA.MEDREC ---
Addendum entered by Sedrick Ruiz RPh 07/16/24 18:09: MED REC CHECKED BY [facility] Original Note: Pharmacy Consult ? Medication Reconciliation Pharmacy has completed the medication reconciliation. Utilized list from [facility].
[2024-07-16 09:17] LABS: ~Lactic Acid-LAB USE ONLY 2.4 mmol/L (0.5-2.0)
[2024-07-16] MEDS: Albumin Human 25 % 50 ML 100 ML IV ×2 (09:20→10:26)
--- NOTE | 2024-07-16 10:29 | PC.NURSE ---
Paracentesis done by MD Harrison at bedside. 5L of fluid removed. Pt BP soft, 90s/50s. MD Harrison aware, Albumin hung, refer to MAR for medications. BP cycling q10 to monitor, pt asymptomatic at this time. Call [facility] within reach, all needs met at this time.
[2024-07-16 10:44] LABS: Lymphocyte Peritoneal Fl 30 %; Monocytes Peritoneal Fl 15 %; Neutrophils Peritoneal Fluid 3 %; Other Peritioneal Fl 52 %
[2024-07-16 10:45] LABS: BF Shift QC OK YES
--- NOTE | 2024-07-16 11:27 | PC.NURSE ---
Pt BP 90s/50s, MD Harrison aware. 2 bags Albumin given per MAR. BP remains soft, no new orders at this time.
--- NOTE | 2024-07-16 15:00 | PM.IMHP ---
History of Present Illness Date of Service: 07/16/24 Chief Complaint: hypotension 68-year-old man coming from long-term care facility with hypotension and worsening encephalopathy. Apparently patient was 70/50. The patient is really unable to give any significant history. According to records from [facility] patient had presented on 07/15/2024 with abnormal labs and he was found to be hyperkalemic. Potassium done at [facility] showed potassium of 5.6 he was treated and then released early this morning. Apparently he went back to the rehab and was found to be hypotensive and still not back to baseline mentally and was sent to [facility] for further evaluation. Review of Systems Review of Systems: Yes Unobtainable due to mental condition [facility]LY [facility] Medical History (Updated 07/18/24 @ 10:40 by Ortega Sevilla MD) Anemia Coronary artery disease Depression Hyperlipidemia CKD (chronic kidney disease) CVA (cerebral vascular accident) Liver cirrhosis Diabetes mellitus Chronic indwelling Smith catheter Cirrhosis of liver with ascites Hepatitis C Social History Household Members: Unknown / Unable to assess Alcohol intake: former Patient Tobacco Use Status: Former Tobacco user service: No Meds Allergies Allergy/AdvReac Type Severity Reaction Status Date / Time No Known Allergies Allergy Verified 07/16/24 03:07 Active Medications: Current Medications Acetaminophen (Acetaminophen 325 Mg Tablet) 650 mg PO Q6H PRN PRN Reason: Pain, Mild 1-3,fever,headache Calcium Carbonate (Calcium Carbonate 750 Mg Tab.Chew) 750 mg PO Q4H PRN PRN Reason: Heartburn Magnesium Hydroxide (Milk Of Magnesia 30 Ml Oral.Susp) 30 ml PO DAILY PRN PRN Reason: Constipation Melatonin (Melatonin 3 Mg Tablet) 6 mg PO BEDTIME PRN PRN Reason: Insomnia Ondansetron HCl (Ondansetron Hcl 4 Mg/2 Ml Vial) 4 mg IVPUSH Q8H PRN PRN Reason: Nausea and Vomiting Sodium Chloride (0.9 % Sodium Chloride Flush 3 Ml Syringe) [facility]ations ?Medication ?Instructions ?Recorded ?Confirmed ?Last Taken ?Type acetaminophen 325 mg tablet 650 mg PO Q6H PRN Fever Or Pain 06/26/24 07/16/24 Unknown History apixaban 5 mg tablet 5 mg PO BID 06/26/24 07/16/24 Unknown History atorvastatin 10 mg tablet 10 mg PO DAILY 06/26/24 07/16/24 Unknown History baclofen 5 mg tablet 5 mg PO TID 06/26/24 07/16/24 Unknown History bisacodyl 10 mg rectal suppository 10 mg AK DAILY PRN Constipation 06/26/24 07/16/24 Unknown History cholestyramine (with sugar) 4 gram 4 g PO DAILY 06/26/24 07/16/24 Unknown History oral powder finasteride 5 mg tablet 5 mg PO DAILY 06/26/24 07/16/24 Unknown History folic acid 1 mg tablet 1 mg PO DAILY 06/26/24 07/16/24 Unknown History gabapentin 100 mg capsule 200 mg PO BID 06/26/24 07/16/24 Unknown History glucagon 1 mg solution for 1 mg subcut Q20M PRN Hypoglycemia 06/26/24 07/16/24 Unknown History injection lactulose 10 gram/15 mL oral 10 g PO Q12H PRN Constipation 06/26/24 07/16/24 Unknown History solution magnesium hydroxide 400 mg/5 mL 30 ml PO DAILY PRN Constipation 06/26/24 07/16/24 Unknown History oral suspension (Milk of Magnesia) magnesium oxide 400 mg PO DAILY 06/26/24 07/16/24 Unknown History metformin 850 mg tablet 850 mg PO BIDWM 06/26/24 07/16/24 Unknown History midodrine 10 mg tablet 10 mg PO TIDWM 06/26/24 07/16/24 Unknown History mirtazapine 15 mg tablet (Remeron) 15 mg PO BEDTIME 06/26/24 07/16/24 Unknown History multivitamin 1 tab PO DAILY 06/26/24 07/16/24 Unknown History pantoprazole 20 mg tablet,delayed 20 mg PO DAILY@0630 06/26/24 07/16/24 Unknown History release polyvinyl alcohol 1.4 % eye drops 1 drp ophthalmic (eye) QID 06/26/24 07/16/24 Unknown History sodium phosphates 19 gram-7 118 ml AK DAILY PRN Constipation 06/26/24 07/16/24 Unknown History gram/118 mL enema (Fleet Enema) tamsulosin 0.4 mg capsule (Flomax) 0.8 mg PO BEDTIME 06/26/24 07/16/24 Unknown History dextrose 40 % oral gel (Glucose 15 g PO Q15M PRN Hypoglycemia 07/16/24 07/16/24 Unknown History Gel) escitalopram oxalate 10 mg tablet 15 mg PO DAILY 07/16/24 07/16/24 Unknown History furosemide 20 mg tablet 10 mg PO DAILY 07/16/24 07/16/24 Unknown History spironolactone 25 mg tablet 12.5 mg PO DAILY 07/16/24 07/16/24 Unknown History Physical Exam Vital Signs and Narrative: Vital Signs: Last Vital Signs Temp 98.4 F 07/16/24 14:30 Pulse 95 07/16/24 14:57 Resp 18 07/16/24 14:57 BP 95/55 L 07/16/24 14:57 Pulse Ox 98 07/16/24 14:57 O2 Del Method Room Air 07/16/24 14:57 O2 Flow Rate 3 07/16/24 04:27 Oxygen Flow Rate 4 07/16/24 03:00 BMI result Body Mass Index 31.4 Appearing in no acute distress head is normocephalic atraumatic eyes pupils are PERRLA sclera is anicteric mouth throat mucous membranes are intact and moist neck is supple no lymphadenopathy, no JVD noted lung sounds are clear to auscultation heart regular rate rhythm, clear S1, S2. +[address] up to abbomen positive bowel sounds, abdomen is soft, nontender neuro patient is alert, confused Right sided hemiparesis Results Labs 07/19/24 07:44 07/19/24 07:44 Labs: Laboratory Results - last 24 hr 07/16/24 07/16/24 07/16/24 03:44 03:45 03:48 MCV 86.5 MCH 27.6 MCHC 31.9 RDW 16.4 H Plt Count 228 D MPV 9.2 L Immature Gran % (Auto) 0.5 H Neut % (Auto) 70.1 Lymph % (Auto) 18.7 L [place] % (Auto) 7.3 Eos % (Auto) 2.8 Baso % (Auto) 0.6 Lymph # (Auto) 1.5 [place] # (Auto) 0.6 Eos # (Auto) 0.2 Baso # (Auto) 0.1 Abs Immat Gran (auto) 0.04 H Absolute Neuts (auto) 5.5 Absolute Nucleated RBC 0.000 Nucleated RBC % (auto) 0.0 PT 13.5 H D INR 1.2 H VBG pH VBG pCO2 VBG pO2 VBG HCO3 VBG O2 Saturation VBG Base Excess Anion Gap 16 Estim Creat Clear Calc 60.4 Estimated GFR 53 Random Glucose 97 Lactic Acid 2.3 H* Lactic Acid F/U @ 2Hr Lactic Acid F/U @ 4Hr Calcium 9.3 D Magnesium 1.7 Total Bilirubin 0.3 Direct Bilirubin 0.2 AST 24 ALT 8 Alkaline Phosphatase 69 Ammonia 25 B-Natriuretic Peptide 66 Total Protein 7.2 Albumin 2.9 L TSH 3.09 Urine Color Yellow Urine Appearance Cloudy Urine pH 5.0 Ur Specific [place] 1.015 Urine Protein Trace Urine Glucose (UA) Negative Urine Ketones Negative Urine Blood Moderate (2+) H Urine Nitrite Negative Ur Leukocyte Esterase Small (1+) H Urine RBC >20 H Urine WBC 11-20 H Ur Squamous Epith Cells 0-2 Calcium Oxalate Crystal Present Urine Bacteria None Seen Hyaline Casts 3-5 Peritoneal WBC Peritoneal RBC Periton Neutrophils Periton Lymphocytes Peritoneal Monocytes Peritoneal Other Cells Urine Opiates Screen Not Detected Ur Buprenorphine Scrn Not Detected Ur Oxycodone Screen Not Detected Urine Methadone Screen Not Detected Urine Fentanyl Screen POSITIVE H Ur Barbiturates Screen Not Detected Ur Phencyclidine Scrn Not Detected Ur Amphetamines Screen Not Detected U Benzodiazepines Scrn Not Detected Urine Cocaine Screen Not Detected U Marijuana (THC) Screen Not Detected Influenza Type A (PCR) NEGATIVE Influenza Type B (PCR) NEGATIVE RSV RNA Qual (PCR) NEGATIVE SARS-CoV-2 RNA (RT-PCR) NEGATIVE 07/16/24 07/16/24 07/16/24 03:49 06:14 07:52 MCV MCH MCHC RDW Plt Count MPV Immature Gran % (Auto) Neut % (Auto) Lymph % (Auto) [place] % (Auto) Eos % (Auto) Baso % (Auto) Lymph # (Auto) [place] # (Auto) Eos # (Auto) Baso # (Auto) Abs Immat Gran (auto) Absolute Neuts (auto) Absolute Nucleated RBC Nucleated RBC % (auto) PT INR VBG pH 7.42 VBG pCO2 30 VBG pO2 35 VBG HCO3 19 L VBG O2 Saturation 58.0 VBG Base Excess -3.9 Anion Gap 14 Estim Creat Clear Calc 64.3 Estimated GFR 57 Random Glucose 108 Lactic Acid Lactic Acid F/U @ 2Hr 2.2 H* Lactic Acid F/U @ 4Hr Calcium 9.2 Magnesium Total Bilirubin Direct Bilirubin AST ALT Alkaline Phosphatase Ammonia B-Natriuretic Peptide Total Protein Albumin TSH Urine Color Urine Appearance Urine pH Ur Specific [place] Urine Protein Urine Glucose (UA) Urine Ketones Urine Blood Urine Nitrite Ur Leukocyte Esterase Urine RBC Urine WBC Ur Squamous Epith Cells Calcium Oxalate Crystal Urine Bacteria Hyaline Casts Peritoneal WBC Peritoneal RBC Periton Neutrophils Periton Lymphocytes Peritoneal Monocytes Peritoneal Other Cells Urine Opiates Screen Ur Buprenorphine Scrn Ur Oxycodone Screen Urine Methadone Screen Urine Fentanyl Screen Ur Barbiturates Screen Ur Phencyclidine Scrn Ur Amphetamines Screen U Benzodiazepines Scrn Urine Cocaine Screen U Marijuana (THC) Screen Influenza Type A (PCR) Influenza Type B (PCR) RSV RNA Qual (PCR) SARS-CoV-2 RNA (RT-PCR) 07/16/24 07/16/24 08:41 08:57 MCV MCH MCHC RDW Plt Count MPV Immature Gran % (Auto) Neut % (Auto) Lymph % (Auto) [place] % (Auto) Eos % (Auto) Baso % (Auto) Lymph # (Auto) [place] # (Auto) Eos # (Auto) Baso # (Auto) Abs Immat Gran (auto) Absolute Neuts (auto) Absolute Nucleated RBC Nucleated RBC % (auto) PT INR VBG pH VBG pCO2 VBG pO2 VBG HCO3 VBG O2 Saturation VBG Base Excess Anion Gap Estim Creat Clear Calc Estimated GFR Random Glucose Lactic Acid Lactic Acid F/U @ 2Hr Lactic Acid F/U @ 4Hr 2.4 H* Calcium Magnesium Total Bilirubin Direct Bilirubin AST ALT Alkaline Phosphatase Ammonia B-Natriuretic Peptide Total Protein Albumin TSH Urine Color Urine Appearance Urine pH Ur Specific [place] Urine Protein Urine Glucose (UA) Urine Ketones Urine Blood Urine Nitrite Ur Leukocyte Esterase Urine RBC Urine WBC Ur Squamous Epith Cells Calcium Oxalate Crystal Urine Bacteria Hyaline Casts Peritoneal WBC 0.050 Peritoneal RBC < 0.002 Periton Neutrophils 3 Periton Lymphocytes 30 Peritoneal Monocytes 15 Peritoneal Other Cells 52 Urine Opiates Screen Ur Buprenorphine Scrn Ur Oxycodone Screen Urine Methadone Screen Urine Fentanyl Screen Ur Barbiturates Screen Ur Phencyclidine Scrn Ur Amphetamines Screen U Benzodiazepines Scrn Urine Cocaine Screen U Marijuana (THC) Screen Influenza Type A (PCR) Influenza Type B (PCR) RSV RNA Qual (PCR) SARS-CoV-2 RNA (RT-PCR) Assessment and Plan (1) Altered mental status: Status: Acute Plan 68-year-old man admitted with hypotension, ascites Liver cirrhosis with massive ascites 5 liters removed in ED, sent for cytology s/p albumin and 2 liters of IV fluids hold lasix, was on spironolactone but stopped at [facility] [place] [place] d/t hyperkalemia GI consultation Hypotension acute on chronic secondary to liver cirrhosis and large paracentesis continue midodrine monitor BP closely Encephalopathy hx of CVA and cognative decline monitor mental status Possible UTI Rocephin follow final cx Normocytic anemia Stable H&H No obvious bleeding Chronic DVT on Eliquis DM2 ss, ada diet BPH Flomax, proscar GERD PPI HLD statin Mental health continue home medications DVT prophylaxis with Eliquis Full code Quality Stroke Does the patient have a stroke diagnosis?: No VTE Prior VTE?: No VTE Risk Level:: Medical - moderate - high VTE Device Contraindication: N/A - Device Ordered VTE Drug Contraindication: Treatment Not Indicated
[2024-07-16] MEDS: 0.9 % Sodium Chloride Flush 3 ML SYRINGE IVFLUSH (17:44)
[2024-07-16] MEDS: cefTRIAXone sodium 1 GM VIAL IVPUSH (17:44)
[2024-07-16 17:50] LABS: Glucose, Whole Blood 80 mg/dL (60-115)
[2024-07-16 20:38] LABS: Glucose, Whole Blood 151 mg/dL (60-115)
[2024-07-16] MEDS: Mirtazapine 15 MG TABLET PO (20:49)
[2024-07-16] MEDS: Sodium Bicarbonate 650 MG TABLET PO (20:49)
[2024-07-16] MEDS: Apixaban 5 MG TABLET PO (20:49)
[2024-07-16] MEDS: Gabapentin 100 MG CAPSULE 200 MG PO (20:49)
[2024-07-16] MEDS: Tamsulosin HCL 0.4 MG CAPSULE 0.8 MG PO (20:49)
[2024-07-16] MEDS: Insulin Lispro 100 UNIT/ML 3 ML VIAL SUBCUT (20:49)
--- NOTE | 2024-07-16 21:05 | PC.NURSE ---
Pt is awake and alert. No apparent distress noted. Currently hypotensive, BP is 87/60 MAP 64 HR 90's. Pt is asymptomatic. He did have 5 Liter of ascitic fluids removed earlier today and was given 2 bags of albumin earlier today. [place] text sent to hospitalist. Pending response.
[2024-07-16] MEDS: Albumin Human 25 % 100 ML 133.33 ML IV ×2 (21:31→23:54)
[2024-07-16] MEDS: Midodrine HCl 10 MG TABLET PO (21:45)
--- NOTE | 2024-07-16 23:20 | PC.NURSE ---
Albumin completed and was given Midodrine 10mg PO. Pt continues to be hypotensive 80/51 MAP 58 HR 90's. He is asymptomatic. [place] text sent to the hospitalist.
--- NOTE | 2024-07-16 23:30 | PC.NURSE ---
Hospitalist at bedside. Another bag of albumin started along with fluids. Pt continues to be hypotensive and asymptomatic.
--- NOTE | 2024-07-16 23:37 | PM.EVENT ---
Event Note Date of Service: 07/16/24 Event Note: Cirrhotic patient with chronic hypotension underwent a 5-liter paracentesis earlier today. Current blood pressure is low at 82/49, but the patient is asymptomatic. He received two bags of albumin, midodrine 10mg, and IV fluids. On examination, he is alert and no new change in mental status, denies dizziness or shortness of breath, has warm skin with normal color, good distal pulses, and good capillary refill. Plan is to continue IV fluids and reassess. Low blood pressure is not attributed to sepsis. Time Spent With Patient Time: Total time managing care of this patient today ____ minutes.
[2024-07-16] MEDS: 0.9 % Sodium Chloride 500 ML IV (23:54)
[2024-07-17] VITALS (44 sets, daily range): BP systolic 76–131; BP diastolic 42–72; PULSE 68–102; RESP 12–69; TEMP 36.4–36.9; O2SAT 92–100; BMI 31.8
--- NOTE | 2024-07-17 00:56 | PC.NURSE ---
Pt completed albumin and fluids. BP 77/42 MAP 52 HR 80's. Continues to be asymptomatic. [place] text sent to hospitalist. Orders to give another 500cc of NS.
--- NOTE | 2024-07-17 01:52 | PC.NURSE ---
at bedside. Orders placed in [facility]
[2024-07-17] MEDS: Norepinephrine Bitartrate/D5W 8 MG/250 ML PLAST..BAG 9.06 MG IVCONT (01:57)
--- NOTE | 2024-07-17 02:00 | PC.NURSE ---
Pt continues to be hypotensive and asymptomatic. Norepi started at 0.05mcg per protocol. Pt tolerating well.
[2024-07-17] MEDS: 0.9 % Sodium Chloride 1,000 ML 999 ML IVCONT ×2 (02:01→02:06)
[2024-07-17 02:48] LABS: Hematocrit 23.2 % (42.0-52.0); Hemoglobin 7.5 g/dl (14.0-18.0); Mean Corpuscular HGB Conc 32.3 g/dl (31.0-36.0); Mean Corpuscular Hemoglobin 27.9 pg (27.0-33.0); Mean Corpuscular Volume 86.2 fL (80.0-98.0); Mean Platelet Volume 9.4 fL (9.4-12.4); Platelet Count 148 X10*3/uL (160-400); Red Blood Count 2.69 X10*6/uL (4.60-5.80); Red Cell Distribution Width 16.3 % (11.0-16.0); White Blood Count 3.5 X10*3/uL (4.8-10.8)
[2024-07-17 03:01] LABS: Anion Gap 12 (12-20); Blood Urea Nitrogen 38 mg/dL (9-16); Calcium 8.3 mg/dL (8.4-10.2); Carbon Dioxide 20 mmol/L (22-29); Chloride 108 mmol/L (96-108); Estimated Glomerular Filt Rate > 60; Glucose Random 97 mg/dL (60-115); Potassium 4.5 mmol/L (3.3-5.1); Sodium 135 mmol/L (135-145)
[2024-07-17 03:02] LABS: Lactic Acid 1.6 mmol/L (0.5-2.0)
--- NOTE | 2024-07-17 04:51 | PM.SEPBOLA4 ---
Sepsis Bolus Exclusion Sepsis Bolus Exclusion CHF/Renal Failure Date of Occurrence: 07/17/24 Time of Occurrence:: 04:51 This patient met severe sepsis criteria due to the following condition(s):: Hypotension and Documentation of septic shock In my clinical judgement the administration of 30 ml/kg of crystalloid would be detrimental to this patient due to the patient's following conditions:: Concern for fluid overload Replace the 30 mls/kg with (Zero amount not acceptable and all fluids for severe sepsis must be given at GREATER than 125 mls/hr) *Note: One of the sanchez must be documented Crystalloids amount given in mls: (rate must be at least 150cc/hr): 800 At a rate of (must be > 125 cchr):: 999
[2024-07-17 05:49] LABS: Glucose, Whole Blood 97 mg/dL (60-115)
[2024-07-17 06:48] LABS: Basophils Percent Auto 0.5 % (0-2); Eosinophils Absolute Auto 0.1 X10*3/uL (0.0-0.4); Eosinophils Percent Auto 2.8 % (0-4); Hematocrit 22.4 % (42.0-52.0); Hemoglobin 7.2 g/dl (14.0-18.0); Imm Gran Abs Auto 0.03 X10*3/uL (0.00-0.03); Imm Gran Pct Auto 0.8 % (0.0-0.4); Lymphocytes Absolute Auto 0.9 X10*3/uL (1.2-4.9); Lymphocytes Percent Auto 22.2 % (20-40); MANUAL DIFF FLAG NO; Mean Corpuscular HGB Conc 32.1 g/dl (31.0-36.0); Mean Corpuscular Hemoglobin 27.9 pg (27.0-33.0); Mean Corpuscular Volume 86.8 fL (80.0-98.0); Mean Platelet Volume 9.4 fL (9.4-12.4); Monocytes Absolute Auto 0.3 X10*3/uL (0.1-1.2); Monocytes Percent Auto 8.2 % (2-11); Neutrophils Absolute Auto 2.6 x10*3/uL (2.0-8.3); Neutrophils Percent Auto 65.5 % (45-73); Platelet Count 154 X10*3/uL (160-400); Red Blood Count 2.58 X10*6/uL (4.60-5.80); Red Cell Distribution Width 16.3 % (11.0-16.0); White Blood Count 3.9 X10*3/uL (4.8-10.8)
[2024-07-17 07:06] LABS: Albumin Level 2.7 g/dL (3.5-5.0); Anion Gap 9 (12-20); Blood Urea Nitrogen 38 mg/dL (9-16); Calcium 8.2 mg/dL (8.4-10.2); Carbon Dioxide 23 mmol/L (22-29); Chloride 108 mmol/L (96-108); Creatinine Clr Calc Pharmacy 81.4; Estimated Glomerular Filt Rate > 60; Glucose Random 108 mg/dL (60-115); Magnesium 1.5 mg/dL (1.6-2.6); Phosphorus 3.3 mg/dL (2.7-4.5); Potassium 4.4 mmol/L (3.3-5.1); Sodium 136 mmol/L (135-145)
[2024-07-17 07:20] LABS: Glucose, Whole Blood 107 mg/dL (60-115)
--- NOTE | 2024-07-17 07:49 | HO.SKINPHOTO ---
Location: Coccyx Category: PI Location: Right hip Category: PI
--- NOTE | 2024-07-17 08:35 | PM.CCPN ---
Subjective Subjective Date of Service: 07/17/24 Interval History: admitted 07/17 AM d/t persistent hypotension s/p paracentesis Critical Care Time (minutes): 60 Physical Exam Vital Signs: Vital Signs: Last Vital Signs Temp 97.8 F 07/17/24 08:00 Pulse 80 07/17/24 08:05 Resp 17 07/17/24 08:00 BP 91/50 L 07/17/24 08:05 Pulse Ox 99 07/17/24 08:00 O2 Del Method Room Air 07/17/24 08:00 O2 Flow Rate 3 07/16/24 04:27 Oxygen Flow Rate 4 07/16/24 03:00 BMI result Body Mass Index 31.8 Const: General: cooperative, healthy appearing, comfortable, no acute distress, well developed, alert, awake and Physically active Orientation/consciousness: oriented to person, No oriented to place and No oriented to time HEENT: Head: Yes normal to inspection, Yes normocephalic and Yes atraumatic Eyes: General: appearance normal, both eyes and all related structures Neck: Neck: Yes normal visual inspection, Yes full ROM, Yes no meningeal signs, Yes trachea midline and Yes supple Chest: Chest palpation & inspection: normal inspection of the chest Resp: Other: no appreciable overt rales, rhonchi, wheezing Effort & Inspection: normal respiratory effort Cardio: Rate: regular rate Rhythm: regular rhythm GI: Inspection: Yes normal to inspection, No Abdominal wall edema and No distended Palpation (GI): Soft to palpation, not firm, nontender, no guarding and not rigid Skin: General skin exam: no rashes or lesions noted Neuro: General: oriented to person, No oriented to place, No oriented to time, tone normal, moves all extremities, no meningeal signs and no focal motor deficits Extrem: Other: appreciable anasarca Psych: Appearance: grossly normal Objective Data Labs 07/17/24 06:26 07/17/24 06:25 Labs: Laboratory Results - last 24 hr 07/16/24 07/16/24 07/16/24 08:41 08:57 17:39 WBC RBC Hgb Hct MCV MCH MCHC RDW Plt Count MPV Immature Gran % (Auto) Neut % (Auto) Lymph % (Auto) [place] % (Auto) Eos % (Auto) Baso % (Auto) Lymph # (Auto) [place] # (Auto) Eos # (Auto) Baso # (Auto) Abs Immat Gran (auto) Absolute Neuts (auto) Absolute Nucleated RBC Nucleated RBC % (auto) Sodium Potassium Chloride Carbon Dioxide Anion Gap BUN Creatinine Estim Creat Clear Calc Estimated GFR POC Glucose 80 Random Glucose Lactic Acid Lactic Acid F/U @ 4Hr 2.4 H* Calcium Phosphorus Magnesium Albumin Peritoneal WBC 0.050 Peritoneal RBC < 0.002 Periton Neutrophils 3 Periton Lymphocytes 30 Peritoneal Monocytes 15 Peritoneal Other Cells 52 07/16/24 07/17/24 07/17/24 20:34 02:41 05:38 WBC 3.5 L RBC 2.69 L D Hgb 7.5 L D Hct 23.2 L D MCV 86.2 MCH 27.9 MCHC 32.3 RDW 16.3 H Plt Count 148 L D MPV 9.4 Immature Gran % (Auto) Neut % (Auto) Lymph % (Auto) [place] % (Auto) Eos % (Auto) Baso % (Auto) Lymph # (Auto) [place] # (Auto) Eos # (Auto) Baso # (Auto) Abs Immat Gran (auto) Absolute Neuts (auto) Absolute Nucleated RBC 0.000 Nucleated RBC % (auto) 0.0 Sodium 135 Potassium 4.5 Chloride 108 Carbon Dioxide 20 L Anion Gap 12 BUN 38 H Creatinine 1.08 Estim Creat Clear Calc 75.0 Estimated GFR > 60 POC Glucose 151 H 97 Random Glucose 97 Lactic Acid 1.6 Lactic Acid F/U @ 4Hr Calcium 8.3 L D Phosphorus Magnesium Albumin Peritoneal WBC Peritoneal RBC Periton Neutrophils Periton Lymphocytes Peritoneal Monocytes Peritoneal Other Cells 07/17/24 07/17/24 07/17/24 06:25 06:26 07:12 WBC 3.9 L RBC 2.58 L Hgb 7.2 L Hct 22.4 L MCV 86.8 MCH 27.9 MCHC 32.1 RDW 16.3 H Plt Count 154 L MPV 9.4 Immature Gran % (Auto) 0.8 H Neut % (Auto) 65.5 Lymph % (Auto) 22.2 [place] % (Auto) 8.2 Eos % (Auto) 2.8 Baso % (Auto) 0.5 Lymph # (Auto) 0.9 L [place] # (Auto) 0.3 Eos # (Auto) 0.1 Baso # (Auto) 0.0 Abs Immat Gran (auto) 0.03 Absolute Neuts (auto) 2.6 Absolute Nucleated RBC 0.000 Nucleated RBC % (auto) 0.0 Sodium 136 Potassium 4.4 Chloride 108 Carbon Dioxide 23 Anion Gap 9 L BUN 38 H Creatinine 1.00 Estim Creat Clear Calc 81.4 Estimated GFR > 60 POC Glucose 107 Random Glucose 108 Lactic Acid Lactic Acid F/U @ 4Hr Calcium 8.2 L Phosphorus 3.3 Magnesium 1.5 L Albumin 2.7 L Peritoneal WBC Peritoneal RBC Periton Neutrophils Periton Lymphocytes Peritoneal Monocytes Peritoneal Other Cells Microbiology Microbiology Results: Microbiology 07/16/24 04:17 Blood - Venous Blood Culture - Preliminary No growth after 24 hours. 07/16/24 03:48 Blood - Venous Blood Culture - Preliminary No growth after 24 hours. 07/16/24 08:41 Ascites Fluid Gram Stain - Final Progress Note: A&P Assessment and plan (1) Hypotension: Status: Acute (2) Chronic UTI (urinary tract infection): Status: Acute (3) Liver cirrhosis: Status: Acute Plan Patient is a 68 Y M w/ prior CVA, chronic Smith cathether, HCV c/b cirrhosis characterized by ascites, initially presenting to emergency department on 07/16 w/ encephalopathy, found to have UA suggestive of possible UTI, admitted medicine, subsequently had paracentesis, developed hypotension, prompting ICU admission N: encephalopathy, likely toxic-metabolic; to continue to monitor CV: hypotension, c/f septic shock and/or fluid shifts s/p large-volume paracentesis, norepinephrine gtt, to wean as tolerated; increased home midodrine R: no acute issues GI: HCV c/b cirrhosis, ascites, s/p large-volume paracentesis 07/16; regular diet : c/f UTI; to closely monitor renal indices, electrolytes H: anemia, to transfuse 1 pRBC; to hold chemical DVT prophylaxis; mechanical devices ID: c/f UTI, based on previous UCx, empiric cefepime; to follow-up ascitic fluid E: to monitor hypo-/hyper-glycemia P: no acute issues Quality Stroke Does the patient have a stroke diagnosis?: No VTE Prior VTE?: No VTE Risk Level:: Medical - moderate - high VTE Device Contraindication: N/A - Device Ordered VTE Drug Contraindication: Treatment Not Tolerated
[2024-07-17] MEDS: Calcium Gluconate/NaCl,Iso-Osm 1 GM/50 ML PLAST..BAG IV (09:00)
[2024-07-17] MEDS: Magnesium Sulfate/D5W 1 GM/100 ML PIGGYBACK IV (09:00)
[2024-07-17] MEDS: Albumin Human 25 % 50 ML 100 ML IV (09:00)
[2024-07-17] MEDS: Atorvastatin Calcium 10 MG TABLET PO (09:08)
[2024-07-17] MEDS: Multivitamin TABLET 1 TAB PO (09:08)
[2024-07-17] MEDS: Pantoprazole Sodium 20 MG TABLET.DR PO (09:08)
[2024-07-17] MEDS: Gabapentin 100 MG CAPSULE 200 MG PO ×2 (09:08→21:01)
[2024-07-17] MEDS: Sodium Bicarbonate 650 MG TABLET PO ×2 (09:08→21:01)
[2024-07-17] MEDS: Magnesium Oxide 400 MG TABLET PO (09:08)
[2024-07-17] MEDS: Finasteride 5 MG TABLET PO (09:08)
[2024-07-17] MEDS: Escitalopram Oxalate 5 MG TABLET 15 MG PO (09:08)
[2024-07-17] MEDS: Folic Acid 1 MG TABLET PO (09:08)
--- NOTE | 2024-07-17 09:47 | PM.GICN ---
History of Present Illness Data of Consult Service Date: 07/17/24 Requesting physician: Georgia Gallegos Primary Care Provider: Unknown Physician HPI Reason for consult: Ascites 68 YM with CVA with rt hemiparesis, Hep C w cirrhosis, chronic ngo, transferred to [facility] on 07/16/24 from a long-term care facility with hypotension (BP of 70/50) and worsening encephalopathy. 07/15/24 Pt was seen at [facility] with abnormal labs and hyperkalemia (according to records from [facility]). 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 Pt returned to rehab and was found to be hypotensive and mental status was not back to baseline. He was sent to [facility] for further evaluation The patient was unable to give any history on admission and is able to provide some limited information today. Patient denies abdominal pain, heartburn, dysphagia, recent change in bowel habits, appetite or weight. He has a remote hx of smoking and social ETOH use. He is unsure how he acquired Hep C and he does not recall if he was treated for Hep C. Pt worked as a director information security in the past, is single and has no children and denies having any family in the area. Pt had a therapeutic paracentesis yesterday in the ED and 5 Liter of ascitic fluids obtained,fluids was sent to the labs for culture and cell count. AF analysis was negative for SBP. He was transferred to ICU this am due to low blood pressure and started on pressors and is being transfused 1 U PRBC. 07/16/[address] SCAN SHOWED: Cirrhotic hepatic morphology large volume ascites. Ngo catheter appears to be appropriately positioned within the bladder. Mild bilateral hydroureteronephrosis similar to the prior exam without obstructing lesion. 07/16/[address] SCAN SHOWED: 1. Patchy areas of hypoventilation likely related to multifocal mucous plugging greater on the right than the left 2. No dense consolidation. 3. Heavy coronary calcium. Review of Systems Review of Systems: Yes Unobtainable due to mental condition Neurologic: Reports confusion Psychiatric: Psychiatric: Reports confusion PMFSH Past Medical History Medical History (Updated 07/17/24 @ 14:26 by Reginaldo Ware MD) Anemia Coronary artery disease Depression Hyperlipidemia CKD (chronic kidney disease) CVA (cerebral vascular accident) Liver cirrhosis Diabetes mellitus Chronic indwelling Nog catheter Cirrhosis of liver with ascites Hepatitis C Social History Social History Household Members: Unknown / Unable to assess Alcohol intake: former Patient Tobacco Use Status: Former Tobacco user service: No Meds Allergies Allergy/AdvReac Type Severity Reaction Status Date / Time No Known Allergies Allergy Verified 07/16/24 03:07 Active Medications: Current Medications Apixaban (Apixaban 5 Mg Tablet) 5 mg PO BID [facility] Last Admin: 07/16/24 20:49 Dose: 5 mg Atorvastatin Calcium (Atorvastatin Calcium 10 Mg Tablet) 10 mg PO DAILY [facility] Last Admin: 07/17/24 09:08 Dose: 10 mg Bisacodyl (Bisacodyl 10 Mg Supp.Rect) 10 mg ND DAILY PRN PRN Reason: Constipation Ceftriaxone Sodium (Ceftriaxone Sodium 1 Gm Vial) 1 gm IVPUSH Q24H [facility] Last Admin: 07/16/24 17:44 Dose: 1 gm Cholestyramine Resin (Cholestyramine (With Sugar) 4 Gm Powd.Pack) 4 gm PO DAILY [facility] Dextrose (Dextrose 50 % 25 Gm/50 Ml Syringe) 25 gm IVPUSH Q15M PRN; Protocol PRN Reason: per Hypoglycemia Standing Ord. Escitalopram Oxalate (Escitalopram Oxalate 5 Mg Tablet) 15 mg PO DAILY [facility] Last Admin: 07/17/24 09:08 Dose: 15 mg Finasteride (Finasteride 5 Mg Tablet) 5 mg PO DAILY [facility] Last Admin: 07/17/24 09:08 Dose: 5 mg Folic Acid (Folic Acid 1 Mg Tablet) 1 mg PO DAILY [facility] Last Admin: 07/17/24 09:08 Dose: 1 mg Gabapentin (Gabapentin 100 Mg Capsule) 200 mg PO BID [facility] Last Admin: 07/17/24 09:08 Dose: 200 mg Glucose (Glucose Gel 15 Gm Gel..Gram.) 15 gm PO Q15M PRN; Protocol PRN Reason: per Hypoglycemia Standing Ord. Norepinephrine Bitartrate (Levophed) 8 mg in 250 mls @ 0 mls/hr IVCONT .Q0M [facility]; Protocol Last Titration: 07/17/24 08:05 Dose: 0.05 mcg/kg/min, 9.06 mls/hr Magnesium Sulfate/Dextrose (Magnesium Sulfate/D5w) 1 gm in 100 mls @ 100 mls/hr IV ONCE ONE Stop: 07/17/24 09:59 Last Admin: 07/17/24 09:00 Dose: 100 mls/hr Insulin Human Lispro (Insulin Lispro 100 Unit/Ml 3 Ml Vial) 0 unit SUBCUT QIDACHS [facility]; Protocol Last Admin: 07/17/24 08:06 Dose: Not Given Lactulose (Lactulose 20 Gm/30 Ml Solution) 10 gm PO Q12H PRN PRN Reason: Constipation Magnesium Hydroxide (Milk Of Magnesia 30 Ml Oral.Susp) 30 ml PO DAILY PRN PRN Reason: Constipation Magnesium Oxide (Magnesium Oxide 400 Mg Tablet) 400 mg PO DAILY [facility] Last Admin: 07/17/24 09:08 Dose: 400 mg Midodrine (Midodrine Hcl 10 Mg Tablet) 10 mg PO MoWeFr@1645 [facility] Mirtazapine (Mirtazapine 15 Mg Tablet) 15 mg PO BEDTIME [facility] Last Admin: 07/16/24 20:49 Dose: 15 mg Multivitamins/Vitamin C (Multivitamin Tablet) 1 tab PO DAILY [facility] Last Admin: 07/17/24 09:08 Dose: 1 tab Ondansetron HCl (Ondansetron Hcl 4 Mg/2 Ml Vial) 4 mg IVPUSH Q8H PRN PRN Reason: Nausea and Vomiting Pantoprazole Sodium (Pantoprazole Sodium 20 Mg Tablet.Dr) 20 mg PO DAILY@0630 [facility] Last Admin: 07/17/24 09:08 Dose: 20 mg Sodium Bicarbonate (Sodium Bicarbonate 650 Mg Tablet) 650 mg PO BID [facility] Last Admin: 07/17/24 09:08 Dose: 650 mg Sodium Chloride (0.9 % Sodium Chloride Flush 3 Ml Syringe) [facility] Last Admin: 07/17/24 07:12 Dose: Not Given Tamsulosin HCl (Tamsulosin Hcl 0.4 Mg Capsule) 0.8 mg PO BEDTIME [facility] Last Admin: 07/16/24 20:49 Dose: 0.8 mg Home Medications ?Medication ?Instructions ?Recorded ?Confirmed ?Last Taken ?Type acetaminophen 325 mg tablet 650 mg PO Q6H PRN Fever Or Pain 06/26/24 07/16/24 Unknown History apixaban 5 mg tablet 5 mg PO BID 06/26/24 07/16/24 Unknown History atorvastatin 10 mg tablet 10 mg PO DAILY 06/26/24 07/16/24 Unknown History baclofen 5 mg tablet 5 mg PO TID 06/26/24 07/16/24 Unknown History bisacodyl 10 mg rectal suppository 10 mg ND DAILY PRN Constipation 06/26/24 07/16/24 Unknown History cholestyramine (with sugar) 4 gram 4 g PO DAILY 06/26/24 07/16/24 Unknown History oral powder finasteride 5 mg tablet 5 mg PO DAILY 06/26/24 07/16/24 Unknown History folic acid 1 mg tablet 1 mg PO DAILY 06/26/24 07/16/24 Unknown History gabapentin 100 mg capsule 200 mg PO BID 06/26/24 07/16/24 Unknown History glucagon 1 mg solution for 1 mg subcut Q20M PRN Hypoglycemia 06/26/24 07/16/24 Unknown History injection lactulose 10 gram/15 mL oral 10 g PO Q12H PRN Constipation 06/26/24 07/16/24 Unknown History solution magnesium hydroxide 400 mg/5 mL 30 ml PO DAILY PRN Constipation 06/26/24 07/16/24 Unknown History oral suspension (Milk of Magnesia) magnesium oxide 400 mg PO DAILY 06/26/24 07/16/24 Unknown History metformin 850 mg tablet 850 mg PO BIDWM 06/26/24 07/16/24 Unknown History midodrine 10 mg tablet 10 mg PO TIDWM 06/26/24 07/16/24 Unknown History mirtazapine 15 mg tablet (Remeron) 15 mg PO BEDTIME 06/26/24 07/16/24 Unknown History multivitamin 1 tab PO DAILY 06/26/24 07/16/24 Unknown History pantoprazole 20 mg tablet,delayed 20 mg PO DAILY@0630 06/26/24 07/16/24 Unknown History release polyvinyl alcohol 1.4 % eye drops 1 drp ophthalmic (eye) QID 06/26/24 07/16/24 Unknown History sodium phosphates 19 gram-7 118 ml ND DAILY PRN Constipation 06/26/24 07/16/24 Unknown History gram/118 mL enema (Fleet Enema) tamsulosin 0.4 mg capsule (Flomax) 0.8 mg PO BEDTIME 06/26/24 07/16/24 Unknown History dextrose 40 % oral gel (Glucose 15 g PO Q15M PRN Hypoglycemia 07/16/24 07/16/24 Unknown History Gel) escitalopram oxalate 10 mg tablet 15 mg PO DAILY 07/16/24 07/16/24 Unknown History furosemide 20 mg tablet 10 mg PO DAILY 07/16/24 07/16/24 Unknown History spironolactone 25 mg tablet 12.5 mg PO DAILY 07/16/24 07/16/24 Unknown History Physical Exam Vital Signs: Vital Signs: Last Vital Signs Temp 97.8 F 07/17/24 08:00 Pulse 82 07/17/24 09:00 Resp 19 07/17/24 09:00 BP 104/58 L 07/17/24 09:00 Pulse Ox 100 07/17/24 09:00 O2 Del Method Room Air 07/17/24 09:00 O2 Flow Rate 3 07/16/24 04:27 Oxygen Flow Rate 4 07/16/24 03:00 BMI result Body Mass Index 31.8 Const: General: no acute distress, confusion and ill appearing (Chronically ill-appearing) Nutritional Appearance: obese Orientation/consciousness: oriented to person and confusion Limitations: physical limitations (right hemiparesis) HEENT: Head: Yes normal to inspection Ears: hearing grossly normal bilaterally Eyes: Sclerae: sclerae normal Pupils: Equal, round and reactive pupils present Neck: Neck: Yes normal visual inspection Chest: Chest palpation & inspection: normal inspection of the chest Resp: Effort & Inspection: normal respiratory effort Auscultation: clear to auscultation bilaterally Cardio: Palpation: normal PMI Rate: regular rate Rhythm: regular rhythm Heart sounds: S1 normal heart sound present, S2 normal heart sound present and no murmurs GI: Inspection: Yes distended (Due to ascites) Palpation (GI): Soft to palpation, nontender and No hepatosplenomegaly present Auscultation: normal bowel sounds Rectal Exam - Male: Yes deferred Skin: General skin exam: no rashes or lesions noted Neuro: General: oriented to person, confusion and other (right hemiparesis) Cranial nerves: Yes Equal, round and reactive pupils present Extrem: General: Yes pedal edema Psych: Appearance: grossly normal Mental Status: mental status grossly normal Results Labs 07/17/24 06:26 07/17/24 06:25 Labs: Short CBC 07/17/24 07/17/24 Range/Units 02:41 06:26 WBC 3.5 L 3.9 L (4.8-10.8) X10*3/uL Hgb 7.5 L D 7.2 L (14.0-18.0) g/dl Hct 23.2 L D 22.4 L (42.0-52.0) % Plt Count 148 L D 154 L (160-400) X10*3/uL BMP 07/17/24 07/17/24 02:41 06:25 Sodium 135 136 Potassium 4.5 4.4 Chloride 108 108 Carbon Dioxide 20 L 23 BUN 38 H 38 H Creatinine 1.08 1.00 Calcium 8.3 L D 8.2 L Liver Function 07/17/24 Range/Units 06:25 Albumin 2.7 L (3.5-5.0) g/dL Microbiology Microbiology Results: Microbiology 07/16/24 04:17 Blood - Venous Blood Culture - Preliminary No growth after 24 hours. 07/16/24 03:48 Blood - Venous Blood Culture - Preliminary No growth after 24 hours. 07/16/24 08:41 Ascites Fluid Gram Stain - Final Assessment and Plan (1) Liver cirrhosis: Qualifiers: Ascites presence: with ascites Status: Acute (2) Hypotension: Status: Acute (3) Ascites: Qualifiers: Ascites type: other type Qualified Code(s): R18.8 - Other ascites Status: Acute Plan 68 YM with CVA with rt hemiparesis, cirrhosis (likely due to Hep C and WEBER) complicated by ascites and HE, chronic ngo, transferred to [facility] on 07/16/24 from a long-term care facility with hypotension (BP of 70/50), Lactic acidosis, renal insufficiency and worsening encephalopathy. He is unsure how he acquired Hep C and he does not recall if he was treated for Hep C. Pt had a therapeutic paracentesis yesterday in the ED and 5 Liter of ascitic fluids obtained,fluids was sent to the labs for culture and cell count. AF analysis was negative for SBP. He was transferred to ICU this am due to low blood pressure and started on pressors and is being transfused 1 U PRBC. 07/16/[address] SCAN SHOWED: Cirrhotic hepatic morphology large volume ascites. Ngo catheter appears to be appropriately positioned within the bladder. Mild bilateral hydroureteronephrosis similar to the prior exam without obstructing lesion. MELD Na score is 11. Pt is not a candidate for Liver Transplant due to multiple co-morbidities. Hypotension and altered mental status likely a combination of sepsis and hepatic encephalopathy. RECOMMENDATIONS: 1. Agree with IV antibiotics and blood transfusion 2. Continue PO Midodrine and lactulose for hepatic encephalopathy. 3. Repeat CBC 1 hr after blood transfusion and then daily. 4. Hep C antibody and if positive Hep C viral load - added to am labs Procedures Date of Service Date of Service: 07/17/24
--- NOTE | 2024-07-17 11:41 | MHC.CM.PN ---
Addendum entered by Rosalba Page 07/17/24 11:51: PVR SENT COPY OF HCP, CONTACTS UPDATED VIA REGISTRATION TASK TO REFLECT HCP'S INFORMATION. Original Note: IMM DELIVERED VIA TELEPHONE TO PRIMARY CONTACT LISTED (KENNEY Freire ) WHITE COPY AT BEDSIDE. PT IS A LTC RESIDENT AT [facility]. PLAN WILL BE TO RETURN THERE WHEN MEDICALLY CLEARED VIA BLS TRANSPORT. RETURN REFERRAL SENT TO [facility] WITH REQUEST FOR COPY OF HCP TO BE FAXED.CM WILL CONTINUE TO FOLLOW FOR ANY CHANGE TO DC PLAN/NEEDS.
[2024-07-17 12:10] LABS: Glucose, Whole Blood 142 mg/dL (60-115)
--- NOTE | 2024-07-17 13:40 | PC.NURSE ---
Abs administered late d/t pt having limited access and having Levo and RBC running through current IVs. Abs to be administered post RBC administration
[2024-07-17] MEDS: cefEPime HCl/D5W 2 GM/50 ML PIGGYBACK IV ×2 (14:16→21:49)
[2024-07-17] MEDS: Midodrine HCl 10 MG TABLET PO ×2 (14:18→21:01)
[2024-07-17 16:15] LABS: Glucose, Whole Blood 160 mg/dL (60-115)
[2024-07-17] MEDS: Insulin Lispro 100 UNIT/ML 3 ML VIAL SUBCUT (16:26)
[2024-07-17 20:39] LABS: Glucose, Whole Blood 113 mg/dL (60-115)
[2024-07-17] MEDS: Tamsulosin HCL 0.4 MG CAPSULE 0.8 MG PO (21:01)
[2024-07-17] MEDS: Mirtazapine 15 MG TABLET PO (21:01)
[2024-07-17] MEDS: 0.9 % Sodium Chloride Flush 3 ML SYRINGE IVFLUSH (21:02)
[2024-07-18] VITALS (29 sets, daily range): BP systolic 83–146; BP diastolic 40–77; PULSE 71–100; RESP 14–96; TEMP 36.2–37; O2SAT 92–99; BMI 32.8
[2024-07-18 05:06] LABS: MANUAL DIFF FLAG NO
[2024-07-18 05:15] LABS: Basophils Percent Auto 0.7 % (0-2); Eosinophils Absolute Auto 0.2 X10*3/uL (0.0-0.4); Eosinophils Percent Auto 3.7 % (0-4); Hematocrit 28.4 % (42.0-52.0); Hemoglobin 8.9 g/dl (14.0-18.0); Imm Gran Abs Auto 0.04 X10*3/uL (0.00-0.03); Imm Gran Pct Auto 0.9 % (0.0-0.4); Lymphocytes Absolute Auto 1.1 X10*3/uL (1.2-4.9); Lymphocytes Percent Auto 25.3 % (20-40); Mean Corpuscular HGB Conc 31.3 g/dl (31.0-36.0); Mean Corpuscular Hemoglobin 27.4 pg (27.0-33.0); Mean Corpuscular Volume 87.4 fL (80.0-98.0); Mean Platelet Volume 9.4 fL (9.4-12.4); Monocytes Absolute Auto 0.5 X10*3/uL (0.1-1.2); Monocytes Percent Auto 10.8 % (2-11); Neutrophils Absolute Auto 2.6 x10*3/uL (2.0-8.3); Neutrophils Percent Auto 58.6 % (45-73); Platelet Count 180 X10*3/uL (160-400); Red Blood Count 3.25 X10*6/uL (4.60-5.80); Red Cell Distribution Width 15.9 % (11.0-16.0); White Blood Count 4.4 X10*3/uL (4.8-10.8)
[2024-07-18 05:30] LABS: Albumin Level 2.6 g/dL (3.5-5.0); Anion Gap 11 (12-20); Blood Urea Nitrogen 32 mg/dL (9-16); Calcium 8.3 mg/dL (8.4-10.2); Carbon Dioxide 23 mmol/L (22-29); Chloride 108 mmol/L (96-108); Creatinine Clr Calc Pharmacy 84.8; Estimated Glomerular Filt Rate > 60; Glucose Random 133 mg/dL (60-115); Magnesium 1.6 mg/dL (1.6-2.6); Phosphorus 2.8 mg/dL (2.7-4.5); Potassium 4.5 mmol/L (3.3-5.1); Sodium 137 mmol/L (135-145)
[2024-07-18] MEDS: cefEPime HCl/D5W 2 GM/50 ML PIGGYBACK IV (06:26)
[2024-07-18] MEDS: Pantoprazole Sodium 20 MG TABLET.DR PO (06:43)
[2024-07-18 07:20] LABS: Glucose, Whole Blood 129 mg/dL (60-115)
[2024-07-18 08:02] LABS: Albumin Peritoneal Fluid 1.2; Glucose Peritoneal Fluid 100; LDH Peritoneal Fluid 54
[2024-07-18 08:03] LABS: Amylase Peritoneal Fluid 14
[2024-07-18] MEDS: Escitalopram Oxalate 5 MG TABLET 15 MG PO (08:29)
[2024-07-18] MEDS: Midodrine HCl 10 MG TABLET PO ×3 (08:29→23:17)
[2024-07-18] MEDS: Magnesium Oxide 400 MG TABLET PO (08:30)
[2024-07-18] MEDS: Atorvastatin Calcium 10 MG TABLET PO (08:30)
[2024-07-18] MEDS: 0.9 % Sodium Chloride Flush 3 ML SYRINGE IVFLUSH ×3 (08:30→23:18)
[2024-07-18] MEDS: Finasteride 5 MG TABLET PO (08:30)
[2024-07-18] MEDS: Multivitamin TABLET 1 TAB PO (08:30)
[2024-07-18] MEDS: Folic Acid 1 MG TABLET PO (08:30)
[2024-07-18] MEDS: Sodium Bicarbonate 650 MG TABLET PO ×2 (08:30→23:18)
[2024-07-18] MEDS: Gabapentin 100 MG CAPSULE 200 MG PO ×2 (08:40→23:17)
[2024-07-18] MEDS: Albumin Human 25 % 100 ML IV ×2 (08:44→09:35)
[2024-07-18 10:12] LABS: Total Protein Peritoneal Fluid 2.2
[2024-07-18] MEDS: Cholestyramine (With Sugar) 4 GM POWD.PACK PO (10:29)
--- NOTE | 2024-07-18 10:36 | P.PNCC_ITS ---
Subjective Subjective Date of Service: 07/18/24 Interval History: [place] year old gentleman with underlying history CVA with right-sided deficits, chronic hypotension on midodrine, chronic Smith catheter, prior femoral DVT now on Eliquis, hep C with cirrhosis complicated by ascites admitted on 07/16/2024 with UA suggestive of UTI though with negative urine culture, thus likely chronic colonization, encephalopathy, hyperkalemia, and worsening ascites. Patient did have paracentesis with drainage of approximately 5 L of fluid further complicated by development of hypotension requiring transfer to intensive care unit and pressor support. No events overnight. Titrated off pressor support. Hyperkalemia resolved. Mental status improved. Critical Care Time (minutes): 0 Physical Exam 2 Vital Signs: Vital Signs: Last Vital Signs Temp 97.2 F 07/18/24 08:00 Pulse 92 07/18/24 09:00 Resp 19 07/18/24 09:00 BP 100/54 L 07/18/24 09:00 Pulse Ox 98 07/18/24 09:00 O2 Del Method Room Air 07/18/24 09:00 O2 Flow Rate 3 07/16/24 04:27 Oxygen Flow Rate 4 07/16/24 03:00 BMI result Body Mass Index 32.8 Const: General: no acute distress, alert and awake Eyes: Sclerae: sclerae normal EOM: EOMs intact bilaterally Neck: Neck: Yes no lymphadenopathy, Yes trachea midline and Yes supple Resp: Effort & Inspection: normal respiratory effort and no respiratory distress Auscultation: clear to auscultation bilaterally Cardio: Rate: regular rate Rhythm: regular rhythm Heart sounds: no gallops, no murmurs and no rubs GI: Inspection: Yes distended (Mildly) Palpation (GI): Soft to palpation and Other GI palpation findings present ( Nontender) Auscultation: normal bowel sounds Extrem: General: No clubbing, No cyanosis and Yes edema (Trace bilateral) Objective Data Labs 07/18/24 04:47 07/18/24 00:02 Labs: Laboratory Results - last 24 hr 07/16/24 07/17/24 07/17/24 08:41 09:21 11:44 WBC RBC Hgb Hct MCV MCH MCHC RDW Plt Count MPV Immature Gran % (Auto) Neut % (Auto) Lymph % (Auto) [place] % (Auto) Eos % (Auto) Baso % (Auto) Lymph # (Auto) [place] # (Auto) Eos # (Auto) Baso # (Auto) Abs Immat Gran (auto) Absolute Neuts (auto) Absolute Nucleated RBC Nucleated RBC % (auto) Sodium Potassium Chloride Carbon Dioxide Anion Gap BUN Creatinine Estim Creat Clear Calc Estimated GFR POC Glucose 142 H Random Glucose Calcium Phosphorus Magnesium Albumin Peritoneal Tot Protein 2.2 Peritoneal Albumin 1.2 Peritoneal LDH 54 Peritoneal Glucose 100 Peritoneal Amylase 14 Blood Type O Positive Antibody Screen NEGATIVE Crossmatch See Detail 07/17/24 07/17/24 07/18/24 16:09 20:36 00:02 WBC RBC Hgb Hct MCV MCH MCHC RDW Plt Count MPV Immature Gran % (Auto) Neut % (Auto) Lymph % (Auto) [place] % (Auto) Eos % (Auto) Baso % (Auto) Lymph # (Auto) [place] # (Auto) Eos # (Auto) Baso # (Auto) Abs Immat Gran (auto) Absolute Neuts (auto) Absolute Nucleated RBC Nucleated RBC % (auto) Sodium 137 Potassium 4.5 Chloride 108 Carbon Dioxide 23 Anion Gap 11 L BUN 32 H Creatinine 0.96 Estim Creat Clear Calc 84.8 Estimated GFR > 60 POC Glucose 160 H 113 Random Glucose 133 H Calcium 8.3 L Phosphorus 2.8 Magnesium 1.6 Albumin 2.6 L Peritoneal Tot Protein Peritoneal Albumin Peritoneal LDH Peritoneal Glucose Peritoneal Amylase Blood Type Antibody Screen Crossmatch 07/18/24 07/18/24 04:47 07:15 WBC 4.4 L RBC 3.25 L D Hgb 8.9 L D Hct 28.4 L D MCV 87.4 MCH 27.4 MCHC 31.3 RDW 15.9 Plt Count 180 MPV 9.4 Immature Gran % (Auto) 0.9 H Neut % (Auto) 58.6 Lymph % (Auto) 25.3 [place] % (Auto) 10.8 Eos % (Auto) 3.7 Baso % (Auto) 0.7 Lymph # (Auto) 1.1 L [place] # (Auto) 0.5 Eos # (Auto) 0.2 Baso # (Auto) 0.0 Abs Immat Gran (auto) 0.04 H Absolute Neuts (auto) 2.6 Absolute Nucleated RBC 0.000 Nucleated RBC % (auto) 0.0 Sodium Potassium Chloride Carbon Dioxide Anion Gap BUN Creatinine Estim Creat Clear Calc Estimated GFR POC Glucose 129 H Random Glucose Calcium Phosphorus Magnesium Albumin Peritoneal Tot Protein Peritoneal Albumin Peritoneal LDH Peritoneal Glucose Peritoneal Amylase Blood Type Antibody Screen Crossmatch Microbiology Microbiology Results: Microbiology 07/16/24 08:41 Ascites Fluid Gram Stain - Final 07/16/24 08:41 Ascites Fluid Anaerobic Culture - Preliminary 07/16/24 08:41 Ascites Fluid Body Fluid Culture - Final No growth after 2 days 07/16/24 04:17 Blood - Venous Blood Culture - Preliminary No growth after 48 hours. 07/16/24 03:48 Blood - Venous Blood Culture - Preliminary No growth after 48 hours. 07/16/24 Unknown Urine Catheterized - Smith Catheter Urine Culture - Final No growth. Progress Note: A&P Assessment and plan (1) Liver cirrhosis: Status: Acute (2) Ascites: Status: Acute (3) Hepatitis C: Status: Acute Plan Assessment: 68-year-old gentleman with underlying hep C cirrhosis with ascites and prior CVA with residual right-sided deficits admitted with worsening encephalopathy and hyperkalemia, hospital course complicated by hypotension after paracentesis requiring pressor support, now titrated off pressors Plan: Neuro: Hepatic encephalopathy improved, continue scheduled lactulose. Cardiac: Distributive shock secondary to volume redistribution after paracentesis, resolved. Underlying chronic hypotension, continue midodrine. Pulmonary: No acute issues. Renal: Hyperkalemia resolved. Endo: No acute issues. GI: Hep C cirrhosis with ascites. Restart on furosemide/spironolactone as BP tolerates. Continue albumin support. Continue lactulose. ID: Initial UA suggestive of infection, however urine culture negative, thus likely chronic colonization. Will monitor off antibiotics. Heme/Onc: History of femoral DVT, continue Eliquis. Psych: No acute issues. Miscellaneous: No acute issues. Prophylaxis: Eliquis Diet: Regular Quality Stroke Does the patient have a stroke diagnosis?: No VTE Prior VTE?: No VTE Risk Level:: Medical - moderate - high VTE Device Contraindication: N/A - Device Ordered VTE Drug Contraindication: Treatment Not Tolerated
[2024-07-18 11:39] LABS: Glucose, Whole Blood 111 mg/dL (60-115)
[2024-07-18] MEDS: Lactulose 20 GM/30 ML SOLUTION 30 GM PO (11:43)
--- NOTE | 2024-07-18 12:01 | MHC.CLN ---
PT WITH INCREASED NUTRITION RISK R/T PRESSURE INJURY EATING WELL PER NSG DIET RX: 1800DM -RECOMMEND 2000DM DIET TO PROMOTE WOUND HEALING IN ADDITION, WILL ADD ENSURE MAX BID TO PROMOTE WOUND HEALING SUPPLEMENT TO PROVIDE 300KCALS, 60G PROTEIN MONITOR PO INTAKE AND ENCOURAGE SUPPLEMENTS SEE ALSO FULL CLINICAL NUTRITION ASSESSMENT
--- NOTE | 2024-07-18 12:19 | PM.EVENT ---
Event Note Date of Service: 07/18/24 Event Note: Hepatitis-C cirrhosis. Transferred to ICU due to hypotension, received pressor support. Discussed with ICU attending. Transferred to medical floor. Time Spent With Patient Time: Total time managing care of this patient today ____ minutes.
[2024-07-18 14:52] LABS: ~HepC Num1 12.28 S/CO (0.00-0.79); ~Hepatitis C Antibody Reactive (Nonreactive)
--- NOTE | 2024-07-18 15:34 | HO.WOUND ---
Wound Consult: Initial 68yr old? [place] [facility] [place] - See progress notes and H&P for detailed history.? Wound consult placed for Coccyx and Right Hip POA.? Patient agreeable to assessment and photo documentation.? Coccyx Etiology: Unstageable Pressure Injury ?Present on Admission Wound Bed: adherent yellow slough Edges: ? epibole Olesya wound: ? MASD No Induration, Fluctuance or Warmth noted Goals of Treatment: ? Off load pressure and triad and foam dressing Right Hip Etiology: Stage 2 Pressure Injury??Present on Admission Wound Bed: red pink clean wound bed Edges: ? well defined Oles[place] wound: ?Intact No Induration, Fluctuance or Warmth noted Goals of Treatment: ? Off load pressure and triad and foam dressing Recommendations: 1. Turn and Reposition every 2 hours and as needed for patient comfort.? Use pillows or wedges to support off loading positions. 2. Off Load all bony prominences with use of pillows and heel boots if needed.? Apply Preventative foams where needed. ? 3. Monitor for incontinence and moisture control, use barrier creams when needed for prevention and treatment. 4. Provide adequate and supplemental nutrition.? 5. Order low air loss mattress. 6. When applicable maintain blood glucose levels per Providers order. 7. Coccyx and Right Hip - Off Load Pressure with Q2 hr turns and use of pillows - Cleanse with PH balance spray or wipes, pat dry. ?Apply thin layer of Triad to wound bed. Do not remove all of paste between applications as this may cause further skin damage.? Cover with foam dressing to aid in off loading and protection from friction. Change every 2 days and PRN. Re-consult wound care Nurse for wound deterioration or wound changes.
--- NOTE | 2024-07-18 15:39 | PC.NURSE ---
Assumed care at 0700- pt remains off norepinephrine gtt with MAPs sustaining > 65. Pt. A&O to self only, calm and cooperative. Pt. SR HR 70s-80s. No BM this admission, MD notified- lactulose given per JUL. Smith remains in place draining clear yellow urine. Q2 repositioning performed, hovermat system in place. Call mcgraw within reach, bed locked in lowest position, plan of care ongoing. Pending bed placement to medical/telemetry floor.
[2024-07-18 16:28] LABS: Glucose, Whole Blood 109 mg/dL (60-115)
--- NOTE | 2024-07-18 19:26 | PC.NURSE ---
pt arrived to [facility] and settled in bed. He denies pain or other complaint and states he is comfortable. call mcgraw in reach, bed and tele alarms on. report given to oncoming RN.
[2024-07-18 20:54] LABS: Glucose, Whole Blood 117 mg/dL (60-115)
[2024-07-18] MEDS: Apixaban 5 MG TABLET PO (23:17)
[2024-07-18] MEDS: Tamsulosin HCL 0.4 MG CAPSULE 0.8 MG PO (23:17)
[2024-07-18] MEDS: Mirtazapine 15 MG TABLET PO (23:18)
[2024-07-19] VITALS (7 sets, daily range): BP systolic 91–118; BP diastolic 50–66; PULSE 96–107; RESP 14–18; TEMP 36–36.4; O2SAT 92–98; BMI 32.5
[2024-07-19] MEDS: Pantoprazole Sodium 20 MG TABLET.DR PO (05:31)
[2024-07-19 07:34] LABS: Glucose, Whole Blood 103 mg/dL (60-115)
[2024-07-19 07:48] LABS: MANUAL DIFF FLAG NO
[2024-07-19 07:50] LABS: Basophils Percent Auto 0.5 % (0-2); Eosinophils Absolute Auto 0.2 X10*3/uL (0.0-0.4); Eosinophils Percent Auto 4.4 % (0-4); Hematocrit 27.1 % (42.0-52.0); Hemoglobin 8.9 g/dl (14.0-18.0); Imm Gran Abs Auto 0.03 X10*3/uL (0.00-0.03); Imm Gran Pct Auto 0.7 % (0.0-0.4); Lymphocytes Absolute Auto 0.9 X10*3/uL (1.2-4.9); Lymphocytes Percent Auto 22.4 % (20-40); Mean Corpuscular HGB Conc 32.8 g/dl (31.0-36.0); Mean Corpuscular Hemoglobin 28.3 pg (27.0-33.0); Mean Corpuscular Volume 86.3 fL (80.0-98.0); Mean Platelet Volume 9.1 fL (9.4-12.4); Monocytes Absolute Auto 0.4 X10*3/uL (0.1-1.2); Monocytes Percent Auto 9.6 % (2-11); Neutrophils Absolute Auto 2.5 x10*3/uL (2.0-8.3); Neutrophils Percent Auto 62.4 % (45-73); Platelet Count 134 X10*3/uL (160-400); Red Blood Count 3.14 X10*6/uL (4.60-5.80); Red Cell Distribution Width 16.1 % (11.0-16.0); White Blood Count 4.1 X10*3/uL (4.8-10.8)
[2024-07-19 07:53] LABS: Venous Blood Gas Refer to POC result
[2024-07-19 07:53] LABS: VBG Base Excess 1.1 mmol/L; VBG HCO3 25 mmol/L (22-26); VBG pCO2 38 mmHg; VBG pH 7.42 (7.32-7.43); VBG pO2 38 mmHg
[2024-07-19 08:06] LABS: Alanine Aminotransferase 9 U/L (0-40); Alkaline Phosphatase 52 U/L (39-117); Anion Gap 11 (12-20); Aspartate Amino Transferase 28 U/L (5-37); Bilirubin Total 0.3 mg/dL (0.0-1.0); Blood Urea Nitrogen 29 mg/dL (9-16); Calcium 8.5 mg/dL (8.4-10.2); Carbon Dioxide 23 mmol/L (22-29); Chloride 106 mmol/L (96-108); Creatinine Clr Calc Pharmacy 89.9; Estimated Glomerular Filt Rate > 60; Glucose Random 102 mg/dL (60-115); Magnesium 1.7 mg/dL (1.6-2.6); Phosphorus 2.7 mg/dL (2.7-4.5); Potassium 4.4 mmol/L (3.3-5.1); Sodium 136 mmol/L (135-145); Total Protein 5.8 g/dL (6.5-8.0)
[2024-07-19] MEDS: Lactulose 20 GM/30 ML SOLUTION 30 GM PO (08:52)
[2024-07-19] MEDS: Finasteride 5 MG TABLET PO (08:52)
[2024-07-19] MEDS: 0.9 % Sodium Chloride Flush 3 ML SYRINGE IVFLUSH ×3 (08:52→20:16)
[2024-07-19] MEDS: Escitalopram Oxalate 5 MG TABLET 15 MG PO (08:52)
[2024-07-19] MEDS: Atorvastatin Calcium 10 MG TABLET PO (08:53)
[2024-07-19] MEDS: Midodrine HCl 10 MG TABLET PO ×3 (08:53→20:15)
[2024-07-19] MEDS: Gabapentin 100 MG CAPSULE 200 MG PO ×2 (08:53→20:15)
[2024-07-19] MEDS: Magnesium Oxide 400 MG TABLET PO (08:53)
[2024-07-19] MEDS: Apixaban 5 MG TABLET PO ×2 (08:53→20:15)
[2024-07-19] MEDS: Cholestyramine (With Sugar) 4 GM POWD.PACK PO (08:53)
[2024-07-19] MEDS: Multivitamin TABLET 1 TAB PO (08:53)
[2024-07-19] MEDS: Folic Acid 1 MG TABLET PO (08:53)
[2024-07-19] MEDS: Sodium Bicarbonate 650 MG TABLET PO ×2 (08:53→20:16)
--- NOTE | 2024-07-19 11:18 | P.PNIM_ITS ---
Subjective Subjective Date of Service: 07/19/24 Interval History: Follow up hep c ascites no pain still with ascites Physical Exam 2 Vital Signs: Vital Signs: Last Vital Signs Temp 96.8 F 07/19/24 07:37 Pulse 96 07/19/24 07:37 Resp 14 07/19/24 07:37 BP 93/50 L 07/19/24 07:37 Pulse Ox 94 07/19/24 07:37 O2 Del Method Room Air 07/19/24 07:37 O2 Flow Rate 3 07/16/24 04:27 Oxygen Flow Rate 4 07/16/24 03:00 BMI result Body Mass Index 32.5 Appearing in no acute distress lung sounds are clear to auscultation heart regular rate rhythm, clear S1, S2 positive bowel sounds, abdomen is soft, nontender, mildly distended neuro patient is alert x3, no focal deficits Objective Data Active Medications Apixaban (Apixaban 5 Mg Tablet) 5 mg PO BID [facility] Last Admin: 07/19/24 08:53 Dose: 5 mg Documented By: JUAN Atorvastatin Calcium (Atorvastatin Calcium 10 Mg Tablet) 10 mg PO DAILY [facility] Last Admin: 07/19/24 08:53 Dose: 10 mg Documented By: JUAN Cholestyramine Resin (Cholestyramine (With Sugar) 4 Gm Powd.Pack) 4 gm PO DAILY [facility] Last Admin: 07/19/24 08:53 Dose: 4 gm Documented By: JUAN Dextrose (Dextrose 50 % 25 Gm/50 Ml Syringe) 25 gm IVPUSH Q15M PRN; Protocol PRN Reason: per Hypoglycemia Standing Ord. Escitalopram Oxalate (Escitalopram Oxalate 5 Mg Tablet) 15 mg PO DAILY [facility] Last Admin: 07/19/24 08:52 Dose: 15 mg Documented By: JUAN Finasteride (Finasteride 5 Mg Tablet) 5 mg PO DAILY [facility] Last Admin: 07/19/24 08:52 Dose: 5 mg Documented By: JUAN Folic Acid (Folic Acid 1 Mg Tablet) 1 mg PO DAILY [facility] Last Admin: 07/19/24 08:53 Dose: 1 mg Documented By: JUAN Gabapentin (Gabapentin 100 Mg Capsule) 200 mg PO BID [facility] Last Admin: 07/19/24 08:53 Dose: 200 mg Documented By: JUAN Glucose (Glucose Gel 15 Gm Gel..Gram.) 15 gm PO Q15M PRN; Protocol PRN Reason: per Hypoglycemia Standing Ord. Insulin Human Lispro (Insulin Lispro 100 Unit/Ml 3 Ml Vial) 0 unit SUBCUT QIDACHS [facility]; Protocol Last Admin: 07/19/24 08:40 Dose: Not Given Documented By: JUAN Non-Admin Reason: No Insulin Coverage Lactulose (Lactulose 20 Gm/30 Ml Solution) 10 gm PO Q12H PRN PRN Reason: Constipation Lactulose (Lactulose 20 Gm/30 Ml Solution) 30 gm PO DAILY [facility] Last Admin: 07/19/24 08:52 Dose: 30 gm Documented By: JUAN Magnesium Oxide (Magnesium Oxide 400 Mg Tablet) 400 mg PO DAILY [facility] Last Admin: 07/19/24 08:53 Dose: 400 mg Documented By: JUAN Midodrine (Midodrine Hcl 10 Mg Tablet) 10 mg PO TID [facility] Last Admin: 07/19/24 08:53 Dose: 10 mg Documented By: JUAN Mirtazapine (Mirtazapine 15 Mg Tablet) 15 mg PO BEDTIME [facility] Last Admin: 07/18/24 23:18 Dose: 15 mg Documented By: LOVE Multivitamins/Vitamin C (Multivitamin Tablet) 1 tab PO DAILY [facility] Last Admin: 07/19/24 08:53 Dose: 1 tab Documented By: JUAN Ondansetron HCl (Ondansetron Hcl 4 Mg/2 Ml Vial) 4 mg IVPUSH Q8H PRN PRN Reason: Nausea and Vomiting Pantoprazole Sodium (Pantoprazole Sodium 20 Mg Tablet.Dr) 20 mg PO DAILY@0630 [facility] Last Admin: 07/19/24 05:31 Dose: 20 mg Documented By: LOVE Sodium Bicarbonate (Sodium Bicarbonate 650 Mg Tablet) 650 mg PO BID [facility] Last Admin: 07/19/24 08:53 Dose: 650 mg Documented By: JUAN Sodium Chloride (0.9 % Sodium Chloride Flush 3 Ml Syringe) 3 ml IVFLUSH QSHIFT [facility] Last Admin: 07/19/24 08:52 Dose: 3 ml Documented By: JUAN Tamsulosin HCl (Tamsulosin Hcl 0.4 Mg Capsule) 0.8 mg PO BEDTIME [facility] Last Admin: 07/18/24 23:17 Dose: 0.8 mg Documented By: LOVE Labs 07/19/24 07:44 07/19/24 07:44 Labs: Laboratory Results - last 24 hr 07/18/24 07/18/24 07/18/24 04:47 11:32 16:25 MCV MCH MCHC RDW Plt Count MPV Immature Gran % (Auto) Neut % (Auto) Lymph % (Auto) [place] % (Auto) Eos % (Auto) Baso % (Auto) Lymph # (Auto) [place] # (Auto) Eos # (Auto) Baso # (Auto) Abs Immat Gran (auto) Absolute Neuts (auto) Absolute Nucleated RBC Nucleated RBC % (auto) VBG pH VBG pCO2 VBG pO2 VBG HCO3 VBG O2 Saturation VBG Base Excess Anion Gap Estim Creat Clear Calc Estimated GFR POC Glucose 111 109 Random Glucose Calcium Phosphorus Magnesium Total Bilirubin AST ALT Alkaline Phosphatase Total Protein Albumin Hepatitis C Ab (EIA) Reactive H 07/18/24 07/19/24 07/19/24 20:50 07:21 07:44 MCV 86.3 MCH 28.3 MCHC 32.8 RDW 16.1 H Plt Count 134 L D MPV 9.1 L Immature Gran % (Auto) 0.7 H Neut % (Auto) 62.4 Lymph % (Auto) 22.4 [place] % (Auto) 9.6 Eos % (Auto) 4.4 H Baso % (Auto) 0.5 Lymph # (Auto) 0.9 L [place] # (Auto) 0.4 Eos # (Auto) 0.2 Baso # (Auto) 0.0 Abs Immat Gran (auto) 0.03 Absolute Neuts (auto) 2.5 Absolute Nucleated RBC 0.000 Nucleated RBC % (auto) 0.0 VBG pH VBG pCO2 VBG pO2 VBG HCO3 VBG O2 Saturation VBG Base Excess Anion Gap 11 L Estim Creat Clear Calc 89.9 Estimated GFR > 60 POC Glucose 117 H 103 Random Glucose 102 Calcium 8.5 Phosphorus 2.7 Magnesium 1.7 Total Bilirubin 0.3 AST 28 ALT 9 Alkaline Phosphatase 52 Total Protein 5.8 L Albumin 3.0 L Hepatitis C Ab (EIA) 07/19/24 07:49 MCV MCH MCHC RDW Plt Count MPV Immature Gran % (Auto) Neut % (Auto) Lymph % (Auto) [place] % (Auto) Eos % (Auto) Baso % (Auto) Lymph # (Auto) [place] # (Auto) Eos # (Auto) Baso # (Auto) Abs Immat Gran (auto) Absolute Neuts (auto) Absolute Nucleated RBC Nucleated RBC % (auto) VBG pH 7.42 VBG pCO2 38 VBG pO2 38 VBG HCO3 25 VBG O2 Saturation 64.0 VBG Base Excess 1.1 Anion Gap Estim Creat Clear Calc Estimated GFR POC Glucose Random Glucose Calcium Phosphorus Magnesium Total Bilirubin AST ALT Alkaline Phosphatase Total Protein Albumin Hepatitis C Ab (EIA) Microbiology Microbiology Results: Microbiology 07/16/24 08:41 Gram Stain - Final Ascites Fluid Anaerobic Culture - Preliminary Body Fluid Culture - Final No growth after 2 days 07/16/24 04:17 Blood Culture - Preliminary Blood - Venous No growth after 48 hours. Assessment and Plan (1) Hypotension: Status: Acute (2) Liver cirrhosis: Status: Acute Plan 68-year-old man admitted with hypotension, ascites. Developed worsening hypotension and was tx to ICU 07/16 and placed on vasopressors and albumin. Tx back to med floor 07/18 with more stable blood pressure Ascites repeat abd us showing large volume ascites discussed with IR for paracentesis, remove 2-3 liters to avoid worsening hypotension Liver cirrhosis with massive ascites on admission 5 liters removed in ED, neg cytology s/p albumin and 2 liters of IV fluids hold lasix, was on spironolactone but stopped at [facility] d/t hyperkalemia GI following Hypotension acute on chronic secondary to liver cirrhosis continue midodrine monitor BP closely Encephalopathy hx of CVA and cognitive decline monitor mental status Possible UTI Rocephin final cx neg Normocytic anemia Stable H&H No obvious bleeding Chronic DVT on Eliquis DM2 ss, ada diet BPH Flomax, proscar GERD PPI HLD statin Mental health continue home medications DVT prophylaxis with Eliquis Full code Quality Stroke Does the patient have a stroke diagnosis?: No VTE Prior VTE?: No VTE Risk Level:: Medical - moderate - high VTE Device Contraindication: N/A - Device Ordered VTE Drug Contraindication: Treatment Not Tolerated
[2024-07-19 12:04] LABS: Glucose, Whole Blood 114 mg/dL (60-115)
--- NOTE | 2024-07-19 15:49 | HO.WOUND ---
Wound Consult: Follow up 68yr old? admitted to [facility] [place] on 07/16/24 - See progress notes and H&P for detailed history.? Wound consult follow up for Coccyx and Right Hip POA.? Patient agreeable to assessment and photo documentation.? Wounds remains unchanged at this time no new topical recommendations needed at this time. Needs GANESH pump applied to bed - direct care team notfied. Coccyx Etiology: Unstageable Pressure Injury ?Present on Admission Wound Bed: adherent yellow slough Edges: ? epibole [place] wound: ? MASD No Induration, Fluctuance or Warmth noted Goals of Treatment: ? Off load pressure and triad and foam dressing Right Hip Etiology: Stage 2 Pressure Injury??Present on Admission Wound Bed: red pink clean wound bed Edges: ? well defined [place] wound: ?Intact No Induration, Fluctuance or Warmth noted Goals of Treatment: ? Off load pressure and triad and foam dressing Recommendations: 1. Turn and Reposition every 2 hours and as needed for patient comfort.? Use pillows or wedges to support off loading positions. 2. Off Load all bony prominences with use of pillows and heel boots if needed.? Apply Preventative foams where needed. ? 3. Monitor for incontinence and moisture control, use barrier creams when needed for prevention and treatment. 4. Provide adequate and supplemental nutrition.? 5. Order low air loss mattress. 6. When applicable maintain blood glucose levels per Providers order. 7. Coccyx and Right Hip - Off Load Pressure with Q2 hr turns and use of pillows - Cleanse with PH balance spray or wipes, pat dry. ?Apply thin layer of Triad to wound bed. Do not remove all of paste between applications as this may cause further skin damage.? Cover with foam dressing to aid in off loading and protection from friction. Change every 2 days and PRN. Re-consult wound care Nurse for wound deterioration or wound changes.
[2024-07-19 16:37] LABS: Glucose, Whole Blood 138 mg/dL (60-115)
[2024-07-19 20:09] LABS: Glucose, Whole Blood 141 mg/dL (60-115)
[2024-07-19] MEDS: Mirtazapine 15 MG TABLET PO (20:15)
[2024-07-19] MEDS: Tamsulosin HCL 0.4 MG CAPSULE 0.8 MG PO (20:16)
[2024-07-20] VITALS (13 sets, daily range): BP systolic 88–124; BP diastolic 43–74; PULSE 93–117; RESP 6–97; TEMP 36.3–36.9; O2SAT 93–97; BMI 32.8
[2024-07-20] MEDS: traMADoL HCL 50 MG TABLET PO (05:36)
[2024-07-20] MEDS: Pantoprazole Sodium 20 MG TABLET.DR PO (05:37)
[2024-07-20 07:02] LABS: MANUAL DIFF FLAG NO
[2024-07-20 07:07] LABS: Basophils Percent Auto 0.5 % (0-2); Eosinophils Absolute Auto 0.2 X10*3/uL (0.0-0.4); Eosinophils Percent Auto 4.5 % (0-4); Hematocrit 26.5 % (42.0-52.0); Hemoglobin 8.3 g/dl (14.0-18.0); Imm Gran Abs Auto 0.03 X10*3/uL (0.00-0.03); Imm Gran Pct Auto 0.8 % (0.0-0.4); Lymphocytes Absolute Auto 0.9 X10*3/uL (1.2-4.9); Lymphocytes Percent Auto 21.7 % (20-40); Mean Corpuscular HGB Conc 31.3 g/dl (31.0-36.0); Mean Corpuscular Hemoglobin 27.3 pg (27.0-33.0); Mean Corpuscular Volume 87.2 fL (80.0-98.0); Mean Platelet Volume 9.4 fL (9.4-12.4); Monocytes Absolute Auto 0.4 X10*3/uL (0.1-1.2); Monocytes Percent Auto 10.1 % (2-11); Neutrophils Absolute Auto 2.5 x10*3/uL (2.0-8.3); Neutrophils Percent Auto 62.4 % (45-73); Platelet Count 151 X10*3/uL (160-400); Red Blood Count 3.04 X10*6/uL (4.60-5.80); Red Cell Distribution Width 16.1 % (11.0-16.0)
[2024-07-20 07:24] LABS: Anion Gap 10 (12-20); Blood Urea Nitrogen 31 mg/dL (9-16); Calcium 8.2 mg/dL (8.4-10.2); Carbon Dioxide 23 mmol/L (22-29); Chloride 108 mmol/L (96-108); Creatinine Clr Calc Pharmacy 87.1; Estimated Glomerular Filt Rate > 60; Glucose Random 128 mg/dL (60-115); Magnesium 1.7 mg/dL (1.6-2.6); Phosphorus 2.6 mg/dL (2.7-4.5); Potassium 4.1 mmol/L (3.3-5.1); Sodium 137 mmol/L (135-145)
[2024-07-20 07:55] LABS: Glucose, Whole Blood 116 mg/dL (60-115)
[2024-07-20] MEDS: Midodrine HCl 10 MG TABLET PO ×3 (09:04→21:41)
[2024-07-20] MEDS: Multivitamin TABLET 1 TAB PO (09:04)
[2024-07-20] MEDS: Atorvastatin Calcium 10 MG TABLET PO (09:04)
[2024-07-20] MEDS: Folic Acid 1 MG TABLET PO (09:04)
[2024-07-20] MEDS: 0.9 % Sodium Chloride Flush 3 ML SYRINGE IVFLUSH ×3 (09:04→21:41)
[2024-07-20] MEDS: Magnesium Oxide 400 MG TABLET PO (09:04)
[2024-07-20] MEDS: Lactulose 20 GM/30 ML SOLUTION 30 GM PO (09:04)
[2024-07-20] MEDS: Escitalopram Oxalate 5 MG TABLET 15 MG PO (09:04)
[2024-07-20] MEDS: Finasteride 5 MG TABLET PO (09:04)
[2024-07-20] MEDS: Gabapentin 100 MG CAPSULE 200 MG PO ×2 (09:04→21:41)
[2024-07-20] MEDS: Apixaban 5 MG TABLET PO ×2 (09:04→21:41)
[2024-07-20] MEDS: Cholestyramine (With Sugar) 4 GM POWD.PACK PO (09:04)
[2024-07-20] MEDS: Sodium Bicarbonate 650 MG TABLET PO ×2 (09:04→21:41)
[2024-07-20] MEDS: Lidocaine HCl 1 % MPF 5 ML VIAL SUBCUT (10:32)
[2024-07-20 11:33] LABS: Glucose, Whole Blood 122 mg/dL (60-115)
[2024-07-20 13:13] LABS: HCV Log PCR <1.18 NOT DETECTED Log IU/mL (NOT DETECTED); HepC Viral Load <15 NOT DETECTED IU/mL (NOT DETECTED)
--- NOTE | 2024-07-20 13:23 | MHC.CLN ---
F/U PO INTAKE 25% X2 MEALS DIET RX:2000DM -APPROPRIATE RECOMMEND ENSURE MAX BID TO PROMOTE WOUND HEALING SUPPLEMENT TO PROVIDE 300KCALS, 60G PROTEIN MONITOR PO INTAKE AND ENCOURAGE SUPPLEMENTS
--- NOTE | 2024-07-20 13:32 | HO.PM.IMPN ---
Subjective Subjective Date of Service: 07/20/24 Interval History: Follow up hep c ascites no pain Physical Exam Vital Signs: Vital Signs: Last Vital Signs Temp 98.5 F 07/20/24 11:12 Pulse 102 H 07/20/24 11:12 Resp 18 07/20/24 11:12 BP 100/58 L 07/20/24 11:12 Pulse Ox 97 07/20/24 11:12 O2 Del Method Room Air 07/20/24 11:12 O2 Flow Rate 3 07/20/24 10:10 Oxygen Flow Rate 4 07/16/24 03:00 BMI result Body Mass Index 32.8 Appearing in no acute distress lung sounds are clear to auscultation heart regular rate rhythm, clear S1, S2 positive bowel sounds, abdomen is soft, nontender neuro patient is alert x3, no focal deficits Objective Data Active Medications Apixaban (Apixaban 5 Mg Tablet) 5 mg PO BID [facility] Last Admin: 07/20/24 09:04 Dose: 5 mg Documented By: JUAN Atorvastatin Calcium (Atorvastatin Calcium 10 Mg Tablet) 10 mg PO DAILY [facility] Last Admin: 07/20/24 09:04 Dose: 10 mg Documented By: JUAN Cholestyramine Resin (Cholestyramine (With Sugar) 4 Gm Powd.Pack) 4 gm PO DAILY [facility] Last Admin: 07/20/24 09:04 Dose: 4 gm Documented By: JUAN Dextrose (Dextrose 50 % 25 Gm/50 Ml Syringe) 25 gm IVPUSH Q15M PRN; Protocol PRN Reason: per Hypoglycemia Standing Ord. Escitalopram Oxalate (Escitalopram Oxalate 5 Mg Tablet) 15 mg PO DAILY [facility] Last Admin: 07/20/24 09:04 Dose: 15 mg Documented By: JUAN Finasteride (Finasteride 5 Mg Tablet) 5 mg PO DAILY [facility] Last Admin: 07/20/24 09:04 Dose: 5 mg Documented By: JUAN Folic Acid (Folic Acid 1 Mg Tablet) 1 mg PO DAILY [facility] Last Admin: 07/20/24 09:04 Dose: 1 mg Documented By: JUAN Gabapentin (Gabapentin 100 Mg Capsule) 200 mg PO BID [facility] Last Admin: 07/20/24 09:04 Dose: 200 mg Documented By: JUAN Glucose (Glucose Gel 15 Gm Gel..Gram.) 15 gm PO Q15M PRN; Protocol PRN Reason: per Hypoglycemia Standing Ord. Insulin Human Lispro (Insulin Lispro 100 Unit/Ml 3 Ml Vial) 0 unit SUBCUT QIDACHS [facility]; Protocol Last Admin: 07/20/24 11:30 Dose: Not Given Documented By: JUAN Non-Admin Reason: No Insulin Coverage Lactulose (Lactulose 20 Gm/30 Ml Solution) 10 gm PO Q12H PRN PRN Reason: Constipation Lactulose (Lactulose 20 Gm/30 Ml Solution) 30 gm PO DAILY [facility] Last Admin: 07/20/24 09:04 Dose: 30 gm Documented By: JUAN Magnesium Oxide (Magnesium Oxide 400 Mg Tablet) 400 mg PO DAILY [facility] Last Admin: 07/20/24 09:04 Dose: 400 mg Documented By: JUAN Midodrine (Midodrine Hcl 10 Mg Tablet) 10 mg PO TID [facility] Last Admin: 07/20/24 09:04 Dose: 10 mg Documented By: JUAN Mirtazapine (Mirtazapine 15 Mg Tablet) 15 mg PO BEDTIME [facility] Last Admin: 07/19/24 20:15 Dose: 15 mg Documented By: LOVE Multivitamins/Vitamin C (Multivitamin Tablet) 1 tab PO DAILY [facility] Last Admin: 07/20/24 09:04 Dose: 1 tab Documented By: JUAN Ondansetron HCl (Ondansetron Hcl 4 Mg/2 Ml Vial) 4 mg IVPUSH Q8H PRN PRN Reason: Nausea and Vomiting Pantoprazole Sodium (Pantoprazole Sodium 20 Mg Tablet.Dr) 20 mg PO DAILY@0630 [facility] Last Admin: 07/20/24 05:37 Dose: 20 mg Documented By: LOVE Sodium Bicarbonate (Sodium Bicarbonate 650 Mg Tablet) 650 mg PO BID [facility] Last Admin: 07/20/24 09:04 Dose: 650 mg Documented By: JUAN Sodium Chloride (0.9 % Sodium Chloride Flush 3 Ml Syringe) 3 ml IVFLUSH QSHIFT [facility] Last Admin: 07/20/24 09:04 Dose: 3 ml Documented By: JUAN Tamsulosin HCl (Tamsulosin Hcl 0.4 Mg Capsule) 0.8 mg PO BEDTIME [facility] Last Admin: 07/19/24 20:16 Dose: 0.8 mg Documented By: LOVE Labs 07/20/24 06:48 07/20/24 06:48 Labs: Laboratory Results - last 24 hr 07/18/24 07/19/24 07/19/24 04:47 16:32 20:00 MCV MCH MCHC RDW Plt Count MPV Immature Gran % (Auto) Neut % (Auto) Lymph % (Auto) [place] % (Auto) Eos % (Auto) Baso % (Auto) Lymph # (Auto) [place] # (Auto) Eos # (Auto) Baso # (Auto) Abs Immat Gran (auto) Absolute Neuts (auto) Absolute Nucleated RBC Nucleated RBC % (auto) Anion Gap Estim Creat Clear Calc Estimated GFR POC Glucose 138 H 141 H Random Glucose Calcium Phosphorus Magnesium Hep C Viral Load <15 NOT DETECTED Hep C Viral Load Log <1.18 NOT DETECTED 07/20/24 07/20/24 07/20/24 06:48 07:51 11:18 MCV 87.2 MCH 27.3 MCHC 31.3 RDW 16.1 H Plt Count 151 L MPV 9.4 Immature Gran % (Auto) 0.8 H Neut % (Auto) 62.4 Lymph % (Auto) 21.7 [place] % (Auto) 10.1 Eos % (Auto) 4.5 H Baso % (Auto) 0.5 Lymph # (Auto) 0.9 L [place] # (Auto) 0.4 Eos # (Auto) 0.2 Baso # (Auto) 0.0 Abs Immat Gran (auto) 0.03 Absolute Neuts (auto) 2.5 Absolute Nucleated RBC 0.000 Nucleated RBC % (auto) 0.0 Anion Gap 10 L Estim Creat Clear Calc 87.1 Estimated GFR > 60 POC Glucose 116 H 122 H Random Glucose 128 H Calcium 8.2 L Phosphorus 2.6 L Magnesium 1.7 Hep C Viral Load Hep C Viral Load Log Microbiology Microbiology Results: Microbiology 07/16/24 08:41 Gram Stain - Final Ascites Fluid Anaerobic Culture - Preliminary No growth to date. Body Fluid Culture - Final No growth after 2 days Assessment and Plan (1) Hypotension: Status: Acute (2) Liver cirrhosis: Status: Acute Plan 68-year-old man admitted with hypotension, ascites. Developed worsening hypotension and was tx to ICU 07/16 and placed on vasopressors and albumin. Tx back to med floor 07/18 with more stable blood pressure Ascites repeat abd us showing large volume ascites s/p paracentesis 07/20 Liver cirrhosis with massive ascites on admission 5 liters removed in ED, neg cytology s/p albumin and 2 liters of IV fluids hold lasix, was on spironolactone [place] [facility] [place] hyperkalemia GI following Hypotension acute on chronic secondary to liver cirrhosis continue midodrine monitor BP closely Encephalopathy hx of CVA and cognitive decline monitor mental status Possible UTI Rocephin final cx neg Normocytic anemia Stable H&H No obvious bleeding Chronic DVT on Eliquis DM2 ss, ada diet BPH Flomax, proscar GERD PPI HLD statin Mental health continue home medications DVT prophylaxis with Eliquis Full code Quality Stroke Does the patient have a stroke diagnosis?: No VTE Prior VTE?: No VTE Risk Level:: Medical - moderate - high VTE Device Contraindication: N/A - Device Ordered VTE Drug Contraindication: Treatment Not Tolerated
[2024-07-20] MEDS: Albumin Human 25 % 100 ML IV ×2 (13:48→18:47)
--- NOTE | 2024-07-20 15:05 | P.DS_ITS ---
DS: Providers Provider Date of Service: 07/21/24 <YUMIKO Neville - Last Filed: 07/21/24 10:01> Date of admission: 07/16/24 14:50 <Georgia Gallegos NP - Last Filed: 07/20/24 15:09> Date of discharge: 07/21/24 <YUMIKO Neville - Last Filed: 07/21/24 10:01> Primary care physician: Bing Doan MD <Georgia Gallegos NP - Last Filed: 07/20/24 15:09> Consults: 07/16/24 18:01 Consult to Gastroenterology Routine Consulting Provider: Reginaldo Ware Reason for consultation: ascites 07/17/24 06:10 Consult to Wound Care Routine Reason for consultation: PI to coccyx and right hip <Georgia Gallegos NP - Last Filed: 07/20/24 15:09> Attending physician on discharge: Huan Farias <YUMIKO Neville - Last Filed: 07/21/24 10:01> Discharging clinician: Radha Billingsley <YUMIKO Neville - Last Filed: 07/21/24 10:01> DS: Diagnosis Discharge Diagnosis (1) Hypotension: Status: Acute <Georgia Gallegos NP - Last Filed: 07/20/24 15:09> (2) Liver cirrhosis: Status: Acute <Georgia Gallegos NP - Last Filed: 07/20/24 15:09> DS: Summary Hospital Course Hospital Course: 68-year-old man coming from long-term care facility with hypotension and worsening encephalopathy. Apparently patient was 70/50. The patient is really unable to give any significant history. According to records from [facility] patient had presented on 07/15/2024 with abnormal labs and he was found to be hyperkalemic. Potassium done at [facility] showed potassium of 5.6 he was treated and then released early this morning. Apparently he went back to the rehab and was found to be hypotensive and still not back to baseline mentally and was sent to [facility] for further evaluation. 68-year-old man treated for ascites. He has a history of liver cirrhosis. He had initial paracentesis in the ER with 5 L removed. Patient has a history of hypotension and because all of this fluid was removed it appears that the patient developed hypotension and required the pressors in the ICU. He stabilized and was transferred back to medical floor. He was treated with multiple doses of albumin. Patient should be continued on midodrine. He was noted to have more fluid and went for a paracentesis 07/20 and 3 L was removed. Treated with albumin after the procedure. Recommend to resume home dose of lasix for fluid management and recommend outpatient follow-up with GI. Consider routine outpatient paracentesis scheduling to prevent readmission. Consider resuming Aldactone (was stopped at [facility] due to elevated K) if potassium remains normal, repeat electrolytes early next week. He was noted to have some encephalopathy but he does have a history of CVA and cognitive decline. He appears to be at baseline at this time. Initially it was thought that he had a urinary tract infection and was treated with IV Rocephin but urine culture came back negative. Plan is to transfer patient back to long-term care facility. Normocytic anemia. Stable H&H. no evidence of acute blood loss. repeat cbc early next and periodically. Chronic DVT. On Eliquis Diabetes mellitus type 2. Continue home medications BPH. Continue Flomax and Proscar GERD. Continue PPI Hyperlipidemia. Continue statin Mental health. Continue home medications <Georgia Gallegos NP - Last Filed: 07/20/24 15:09> Time Attestation Discharge Coordination Time (in mins): 36 <YUMIKO Neville - Last Filed: 07/21/24 10:01> Quality: Safe Use of Opioids Does Pt have an Active Cancer Diagnosis on the Problem List?: No <YUMIKO Neville - Last Filed: 07/21/24 10:01> Quality: Stroke Does the patient have a stroke diagnosis?: No <YUMIKO Neville - Last Filed: 07/21/24 10:01> Physical Exam Vital Signs: Vital Signs: Last Vital Signs Temp 98.5 F 07/20/24 11:12 Pulse 102 H 07/20/24 11:12 Resp 18 07/20/24 11:12 BP 100/58 L 07/20/24 11:12 Pulse Ox 97 07/20/24 11:12 O2 Del Method Room Air 07/20/24 11:12 O2 Flow Rate 3 07/20/24 10:10 Oxygen Flow Rate 4 07/16/24 03:00 BMI result Body Mass Index 32.8 <Georgia Gallegos NP - Last Filed: 07/20/24 15:09> Const: General: cooperative, comfortable, alert and awake <YUMIKO Neville - Last Filed: 07/21/24 10:01> GI: Inspection: No distended <YUMIKO Neville - Last Filed: 07/21/24 10:01> Palpation (GI): Soft to palpation and nontender <YUMIKO Neville - Last Filed: 07/21/24 10:01> DS: Data Data Completed and Pending Completed studies during hospitalization [Text1]: Procedures Drainage of Peritoneal Cavity, Percutaneous Approach (06/25/24) <Georgia Gallegos NP - Last Filed: 07/20/24 15:09> Labs on day of discharge: Laboratory Results - last 24 hr 07/18/24 07/19/24 07/19/24 04:47 16:32 20:00 WBC RBC Hgb Hct MCV MCH MCHC RDW Plt Count MPV Immature Gran % (Auto) Neut % (Auto) Lymph % (Auto) [place] % (Auto) Eos % (Auto) Baso % (Auto) Lymph # (Auto) [place] # (Auto) Eos # (Auto) Baso # (Auto) Abs Immat Gran (auto) Absolute Neuts (auto) Absolute Nucleated RBC Nucleated RBC % (auto) Sodium Potassium Chloride Carbon Dioxide Anion Gap BUN Creatinine Estim Creat Clear Calc Estimated GFR POC Glucose 138 H 141 H Random Glucose Calcium Phosphorus Magnesium Hep C Viral Load <15 NOT DETECTED Hep C Viral Load Log <1.18 NOT DETECTED 07/20/24 07/20/24 07/20/24 06:48 07:51 11:18 WBC 4.0 L RBC 3.04 L Hgb 8.3 L Hct 26.5 L MCV 87.2 MCH 27.3 MCHC 31.3 RDW 16.1 H Plt Count 151 L MPV 9.4 Immature Gran % (Auto) 0.8 H Neut % (Auto) 62.4 Lymph % (Auto) 21.7 [place] % (Auto) 10.1 Eos % (Auto) 4.5 H Baso % (Auto) 0.5 Lymph # (Auto) 0.9 L [place] # (Auto) 0.4 Eos # (Auto) 0.2 Baso # (Auto) 0.0 Abs Immat Gran (auto) 0.03 Absolute Neuts (auto) 2.5 Absolute Nucleated RBC 0.000 Nucleated RBC % (auto) 0.0 Sodium 137 Potassium 4.1 Chloride 108 Carbon Dioxide 23 Anion Gap 10 L BUN 31 H Creatinine 0.95 Estim Creat Clear Calc 87.1 Estimated GFR > 60 POC Glucose 116 H 122 H Random Glucose 128 H Calcium 8.2 L Phosphorus 2.6 L Magnesium 1.7 Hep C Viral Load Hep C Viral Load Log Preliminary micro results at discharge 07/16/24 08:41 Anaerobic Culture - Preliminary Ascites Fluid No growth to date. 07/16/24 04:17 Blood Culture - Preliminary Blood - Venous No growth after 48 hours. 07/16/24 03:48 Blood Culture - Preliminary Blood - Venous No growth after 48 hours. <Georgia Gallegos NP - Last Filed: 07/20/24 15:09> Discharge Plan Discharge Anticipated Discharge Date/Time: 07/21/24 14:56 <Georgia Gallegos NP - Last Filed: 07/20/24 15:09> Patient Disposition: er LTC <Georgia Gallegos NP - Last Filed: 07/20/24 15:09> Discharge Diagnosis: Ascites Liver cirrhosis Hypotension chronic anemia <Georgia Gallegos NP - Last Filed: 07/20/24 15:09> Ascites Liver cirrhosis Hypotension chronic anemia <YUMIKO Neville - Last Filed: 07/21/24 10:01> Referrals: Bing Doan MD [Primary Care Provider] - 1 Week <Georgia Gallegos NP - Last Filed: 07/20/24 15:09> Discharge Medications: New lactulose 10 gram/15 mL Solution 30 g PO DAILY Qty: 1200 0RF Continued multivitamin Tablet 1 tab PO DAILY acetaminophen 325 mg Tablet 650 mg PO Q6H PRN (Reason: Fever Or Pain) Rx Instructions: DNE 3 G IN 24 HRS atorvastatin 10 mg Tablet 10 mg PO DAILY polyvinyl alcohol 1.4 % Drops 1 drp OPHTHALMIC (EYE) QID metformin 850 mg Tablet 850 mg PO BIDWM pantoprazole 20 mg Tablet,Delayed Release (Dr/Ec) 20 mg PO DAILY@0630 magnesium hydroxide [Milk of Magnesia] 400 mg/5 mL Suspension 30 ml PO DAILY PRN (Reason: Constipation) tamsulosin [Flomax] 0.4 mg Capsule 0.8 mg PO BEDTIME bisacodyl 10 mg Suppository 10 mg [place] DAILY PRN (Reason: Constipation) Fleet Enema 19-7 gram/118 mL Enema 118 ml AL DAILY PRN (Reason: Constipation) folic acid 1 mg Tablet 1 mg PO DAILY mirtazapine [Remeron] 15 mg Tablet 15 mg PO BEDTIME gabapentin 100 mg Capsule 200 mg PO BID glucagon 1 mg Recon Soln 1 mg SUBCUT Q20M PRN (Reason: Hypoglycemia) Rx Instructions: until target blood sugar attained finasteride 5 mg Tablet 5 mg PO DAILY midodrine 10 mg Tablet 10 mg PO TIDWM Rx Instructions: do not give last dose of day after 6PM or within 4 hrs of bedtime cholestyramine (with sugar) 4 gram Powder 4 g PO DAILY Rx Instructions: administer w/meal; avoid other meds within 1hr before or 4-6hr after dose apixaban 5 mg Tablet 5 mg PO BID baclofen 5 mg Tablet 5 mg PO TID magnesium oxide 400 mg magnesium Tablet 400 mg PO DAILY sodium bicarbonate 650 mg Tablet 650 mg PO BID Qty: 180 0RF dextrose [Glucose Gel] 40 % Gel 15 g PO Q15M PRN (Reason: Hypoglycemia) Rx Instructions: until symptoms of low blood sugar are controlled furosemide 20 mg Tablet 10 mg PO DAILY Rx Instructions: END DATE: 07/17/24 escitalopram oxalate 10 mg Tablet 15 mg PO DAILY Held spironolactone 25 mg Tablet 12.5 mg PO DAILY Hold Instructions: was stopped at [facility] for high K - consider resumption outpatient if clinically indicated and K remains normal Rx Instructions: END DATE: 07/17/24 Discontinued lactulose 10 gram/15 mL Solution 10 g PO Q12H PRN (Reason: Constipation) <Georgia Gallegos NP - Last Filed: 07/20/24 15:09> Discharge Orders: Discharge Order (Routine); Ordered 07/21/24 Ordered By: Radha Billingsley <Georgia Gallegos NP - Last Filed: 07/20/24 15:09> Diet: Advance to usual diet <Georgia Gallegos NP - Last Filed: 07/20/24 15:09> Advance to usual diet <YUMIKO Neville - Last Filed: 07/21/24 10:01> Activity on Discharge: As tolerated <Georgia Gallegos NP - Last Filed: 07/20/24 15:09> As tolerated <YUMIKO Neville - Last Filed: 07/21/24 10:01> Stand Alone Forms: Patient Portal Discharge page <Georgia Gallegos NP - Last Filed: 07/20/24 15:09> Print Language: Haitian <Georgia Gallegos NP - Last Filed: 07/20/24 15:09> Care Plan Goals: Monitor for signs of ascites <Georgia Gallegos NP - Last Filed: 07/20/24 15:09> Health Concerns: Ascites Liver cirrhosis Hypotension pancytopenia <Georgia Gallegos NP - Last Filed: 07/20/24 15:09> Plan of Treatment: Follow-up with primary care provider as needed aldactone was stopped at [facility] for hyperkalemia - due to persistent ascites may need to resume if K remains normal may need to schedule paracentesis as outpatient to prevent need for re- admission. continue lasix - outpatient follow up with GI recommended Take all medications as prescribed for chronic anemia would recommend repeating CBC periodically, starting early next week follow electrolytes Recommended scheduled lactulose daily to prevent hepatic encephalopathy <Georgia Gallegos NP - Last Filed: 07/20/24 15:09> Assessment: See discharge summary <Georgia Gallegos NP - Last Filed: 07/20/24 15:09>
[2024-07-20 16:23] LABS: Glucose, Whole Blood 126 mg/dL (60-115)
[2024-07-20 20:40] LABS: Glucose, Whole Blood 121 mg/dL (60-115)
[2024-07-20] MEDS: Tamsulosin HCL 0.4 MG CAPSULE 0.8 MG PO (21:41)
[2024-07-20] MEDS: Mirtazapine 15 MG TABLET PO (21:41)
[2024-07-21 03:46] VITALS: BP 104/50; PULSE 97; RESP 16; TEMP 37.1; O2SAT 95
[2024-07-21 06:00] VITALS: BMI 31.8
[2024-07-21 06:47] LABS: MANUAL DIFF FLAG NO
[2024-07-21 06:51] LABS: Basophils Percent Auto 0.8 % (0-2); Eosinophils Absolute Auto 0.2 X10*3/uL (0.0-0.4); Eosinophils Percent Auto 5.3 % (0-4); Hematocrit 23.9 % (42.0-52.0); Hemoglobin 7.6 g/dl (14.0-18.0); Imm Gran Abs Auto 0.03 X10*3/uL (0.00-0.03); Imm Gran Pct Auto 0.8 % (0.0-0.4); Lymphocytes Percent Auto 26.7 % (20-40); Mean Corpuscular HGB Conc 31.8 g/dl (31.0-36.0); Mean Corpuscular Hemoglobin 27.7 pg (27.0-33.0); Mean Corpuscular Volume 87.2 fL (80.0-98.0); Mean Platelet Volume 9.9 fL (9.4-12.4); Monocytes Absolute Auto 0.4 X10*3/uL (0.1-1.2); Monocytes Percent Auto 10.8 % (2-11); Neutrophils Percent Auto 55.6 % (45-73); Platelet Count 140 X10*3/uL (160-400); Red Blood Count 2.74 X10*6/uL (4.60-5.80); Red Cell Distribution Width 16.1 % (11.0-16.0); White Blood Count 3.6 X10*3/uL (4.8-10.8)
[2024-07-21 07:03] VITALS: BP 102/64; PULSE 98; RESP 18; TEMP 36.3; O2SAT 94
[2024-07-21 07:13] LABS: Anion Gap 9 (12-20); Blood Urea Nitrogen 28 mg/dL (9-16); Calcium 8.4 mg/dL (8.4-10.2); Carbon Dioxide 24 mmol/L (22-29); Chloride 108 mmol/L (96-108); Creatinine Clr Calc Pharmacy 94.7; Estimated Glomerular Filt Rate > 60; Glucose Random 93 mg/dL (60-115); Magnesium 1.8 mg/dL (1.6-2.6); Phosphorus 2.4 mg/dL (2.7-4.5); Potassium 4.4 mmol/L (3.3-5.1); Sodium 137 mmol/L (135-145)
[2024-07-21 07:15] LABS: Glucose, Whole Blood 93 mg/dL (60-115)
[2024-07-21] MEDS: 0.9 % Sodium Chloride Flush 3 ML SYRINGE IVFLUSH (09:25)
[2024-07-21] MEDS: Escitalopram Oxalate 5 MG TABLET 15 MG PO (09:25)
[2024-07-21] MEDS: Midodrine HCl 10 MG TABLET PO (09:26)
[2024-07-21] MEDS: Gabapentin 100 MG CAPSULE 200 MG PO (09:26)
[2024-07-21] MEDS: Multivitamin TABLET 1 TAB PO (09:26)
[2024-07-21] MEDS: Magnesium Oxide 400 MG TABLET PO (09:26)
[2024-07-21] MEDS: Apixaban 5 MG TABLET PO (09:26)
[2024-07-21] MEDS: Lactulose 20 GM/30 ML SOLUTION 30 GM PO (09:26)
[2024-07-21] MEDS: Atorvastatin Calcium 10 MG TABLET PO (09:26)
[2024-07-21] MEDS: Folic Acid 1 MG TABLET PO (09:26)
[2024-07-21] MEDS: Sodium Bicarbonate 650 MG TABLET PO (09:26)
[2024-07-21] MEDS: Finasteride 5 MG TABLET PO (09:27)
== END 2024-07-21 10:30 | DRG 432 ==
LOC: HO.ED 08:37 → HO.EDOVER 15:17 → HO.ICU 07-17 05:49 → HO.IMC 07-18 18:10
PROVIDERS: Emergency Medicine; Internal Medicine; Internal Medicine Critical Care Medicine; Internal Medicine Gastroenterology; Internal Medicine Pulmonary Disease; Nurse Practitioner Family; Physician Assistant Surgical; Student in an Organized Health Care Education/Training Program; Admitting Provider Nurse Practitioner Acute Care; Emergency Provider Emergency Medicine; PCP Internal Medicine; Visit Provider Physician Assistant Medical
DX: K74.69 Other cirrhosis of liver (principal); R57.8 Other shock; R18.8 Other ascites; I69.351 Hemiplegia and hemiparesis following cerebral infarction affecting right dominant side; I25.10 Atherosclerotic heart disease of native coronary artery without angina pectoris; K76.82 Hepatic encephalopathy; D64.9 Anemia, unspecified; N40.0 Benign prostatic hyperplasia without lower urinary tract symptoms; K75.81 Nonalcoholic steatohepatitis (NASH); E87.5 Hyperkalemia; E11.9 Type 2 diabetes mellitus without complications; E78.5 Hyperlipidemia, unspecified; I95.89 Other hypotension; Z20.822 Contact with and (suspected) exposure to COVID-19; Z86.19 Personal history of other infectious and parasitic diseases; Z86.718 Personal history of other venous thrombosis and embolism; Z79.01 Long term (current) use of anticoagulants; Z79.84 Long term (current) use of oral hypoglycemic drugs; Z79.899 Other long term (current) drug therapy
CPT/HCPCS: 0241U; 36415; 49083; 71045; 71250; 74176; 76705; 80048; 80053; 80076; 80307; 81001; 82040; 82042; 82140; 82150; 82803; 82945; 82947; 83605; 83615; 83735; 83880; 84100; 84157; 84443; 84484; 85025; 85027; 85610; 86803; 86850; 86900; 86901; 86923; 87040; 87070; 87073; 87086; 87205; 87522; 89051; 93005; 94640; 99285; J0613; J0692; J0696; J2003; J3475; P9016; P9047

== ENCOUNTER → 2024-07-16 03:10 | Outpatient (BNV) | payer MEDICARE, MEDICAID, SELFPAY | PROVIDERS: Admitting Provider Nurse Practitioner Acute Care; Emergency Provider Emergency Medicine; Visit Provider Internal Medicine | DX: R00.0 Tachycardia, unspecified (principal) | CPT/HCPCS: 93010 ==

== ENCOUNTER → 2024-07-16 03:11 | Outpatient (BNV) | payer MEDICARE, MEDICAID, SELFPAY | PROVIDERS: Emergency Provider Emergency Medicine; Visit Provider General Practice | DX: K70.31 Alcoholic cirrhosis of liver with ascites (principal); R09.02 Hypoxemia; J98.11 Atelectasis; J90 Pleural effusion, not elsewhere classified | CPT/HCPCS: 71045 ==

== ENCOUNTER 2024-07-16 14:50 | Outpatient (BNV) | payer MEDICARE, MEDICAID, SELFPAY | END 2024-07-19 09:23 | PROVIDERS: Admitting Provider Nurse Practitioner Acute Care; Emergency Provider Emergency Medicine; PCP Internal Medicine; Visit Provider Radiology Diagnostic Radiology | DX: R18.8 Other ascites (principal) | CPT/HCPCS: 76705 ==

== ENCOUNTER 2024-07-16 14:50 | Outpatient (BNV) | payer MEDICARE, MEDICAID, SELFPAY | END 2024-07-20 10:00 | PROVIDERS: Admitting Provider Nurse Practitioner Acute Care; Emergency Provider Emergency Medicine; PCP Internal Medicine; Visit Provider Physician Assistant Surgical | DX: R18.8 Other ascites (principal) | CPT/HCPCS: 49083 ==

== ENCOUNTER → 2024-07-16 14:50 | Outpatient (BNV) | payer MEDICARE, MEDICAID, SELFPAY | PROVIDERS: Admitting Provider Nurse Practitioner Acute Care; Emergency Provider Emergency Medicine; Visit Provider Internal Medicine Critical Care Medicine | DX: K74.60 Unspecified cirrhosis of liver (principal); I95.9 Hypotension, unspecified; N39.0 Urinary tract infection, site not specified | CPT/HCPCS: 99291 ==

== ENCOUNTER → 2024-07-16 14:50 | Outpatient (BNV) | payer MEDICARE, MEDICAID, SELFPAY | PROVIDERS: Admitting Provider Nurse Practitioner Acute Care; Emergency Provider Emergency Medicine; Visit Provider Internal Medicine Pulmonary Disease | DX: K74.60 Unspecified cirrhosis of liver (principal); R18.8 Other ascites; B19.20 Unspecified viral hepatitis C 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 | CPT/HCPCS: 99232 ==

== ENCOUNTER → 2024-07-16 14:50 | Outpatient (BNV) | payer MEDICARE, MEDICAID, SELFPAY | PROVIDERS: Admitting Provider Nurse Practitioner Acute Care; Emergency Provider Emergency Medicine; Visit Provider Internal Medicine | DX: I95.9 Hypotension, unspecified (principal); K74.60 Unspecified cirrhosis of liver; R41.82 Altered mental status, unspecified | CPT/HCPCS: 99223; 99232; 99499 ==

== ENCOUNTER → 2024-07-16 14:50 | Outpatient (BNV) | payer MEDICARE, MEDICAID, SELFPAY | PROVIDERS: Admitting Provider Nurse Practitioner Acute Care; Emergency Provider Emergency Medicine; PCP Internal Medicine; Visit Provider Internal Medicine Gastroenterology | DX: K74.60 Unspecified cirrhosis of liver (principal); R18.8 Other ascites; I95.9 Hypotension, unspecified | CPT/HCPCS: 99222 ==

== ENCOUNTER 2024-08-06 09:28 | Inpatient (IN) | payer MEDICARE, MEDICAID, SELFPAY ==
[2024-08-06] VITALS (8 sets, daily range): BP systolic 91–117; BP diastolic 54–79; PULSE 92–112; RESP 12–25; TEMP 36.4–37.1; O2SAT 95–99; BMI 31.9; BMI 30.4
--- NOTE | 2024-08-06 10:11 | ED.ABDPAIN ---
HPI - Abdominal Pain General Chief Complaint: Abdominal Pain Stated Complaint: ABD PAIN Time Seen by Provider: 08/06/24 09:52 Source: patient, EMS and old records reviewed Mode of arrival: EMS Limitations: no limitations History of Present Illness ED Provider: DR. Garcia HPI narrative: 69-year-old male coming from [place] [facility], history of liver cirrhosis with ascites required paracentesis several times in the past, presented from [facility] for increased ascites and abdominal distention, patient feel uncomfortable with the distention, also sustained a scrotal swelling and bilateral lower extremity swelling. No fever, no chills, no SOB. Related Data Home Medications ?Medication ?Instructions ?Recorded ?Confirmed acetaminophen 325 mg tablet 650 mg PO Q6H PRN Fever Or Pain 06/26/24 08/06/24 apixaban 5 mg tablet 5 mg PO BID 06/26/24 08/06/24 atorvastatin 10 mg tablet 10 mg PO DAILY 06/26/24 08/06/24 baclofen 5 mg tablet 5 mg PO TID 06/26/24 08/06/24 bisacodyl 10 mg rectal suppository 10 mg [place] DAILY PRN Constipation 06/26/24 08/06/24 cholestyramine (with sugar) 4 gram 4 g PO DAILY 06/26/24 08/06/24 oral powder finasteride 5 mg tablet 5 mg PO DAILY 06/26/24 08/06/24 folic acid 1 mg tablet 1 mg PO DAILY 06/26/24 08/06/24 gabapentin 100 mg capsule 200 mg PO BID 06/26/24 08/06/24 glucagon 1 mg solution for 1 mg subcut Q20M PRN Hypoglycemia 06/26/24 08/06/24 injection magnesium hydroxide 400 mg/5 mL 30 ml PO DAILY PRN Constipation 06/26/24 08/06/24 oral suspension (Milk of Magnesia) magnesium oxide 400 mg PO DAILY 06/26/24 08/06/24 metformin 850 mg tablet 850 mg PO BIDWM 06/26/24 08/06/24 midodrine 10 mg tablet 10 mg PO TIDWM 06/26/24 08/06/24 mirtazapine 15 mg tablet (Remeron) 15 mg PO BEDTIME 06/26/24 08/06/24 multivitamin 1 tab PO DAILY 06/26/24 08/06/24 pantoprazole 20 mg tablet,delayed 20 mg PO DAILY@0630 06/26/24 08/06/24 release polyvinyl alcohol 1.4 % eye drops 1 drp ophthalmic (eye) QID 06/26/24 08/06/24 sodium phosphates 19 gram-7 118 ml [place] DAILY PRN Constipation 06/26/24 08/06/24 gram/118 mL enema (Fleet Enema) tamsulosin 0.4 mg capsule (Flomax) 0.8 mg PO BEDTIME 06/26/24 08/06/24 dextrose 40 % oral gel (Glucose 15 g PO Q15M PRN Hypoglycemia 07/16/24 08/06/24 Gel) escitalopram oxalate 10 mg tablet 15 mg PO DAILY 07/16/24 08/06/24 furosemide 20 mg tablet 10 mg PO DAILY 07/16/24 08/06/24 spironolactone 25 mg tablet 12.5 mg PO DAILY 07/16/24 07/16/24 lactulose 10 gram/15 mL oral 30 g PO Q12H PRN Constipation 08/06/24 08/06/24 solution Previous Rx's ?Medication ?Instructions ?Recorded sodium bicarbonate 650 mg tablet 650 mg PO BID #180 tabs 06/29/24 Allergies Allergy/AdvReac Type Severity Reaction Status Date / Time No Known Allergies Allergy Verified 08/06/24 09:47 Review of Systems Review of Systems All other systems are reviewed and are negative Constitutional: Reports as per HPI and Reports no additional constitutional complaints Eyes: Reports as per HPI and Reports no additional eye complaints Reports system reviewed and no additional complaints, except as documented Cardiovascular: Reports as per HPI and Reports no additional cardiovascular complaints Respiratory: Reports as per HPI and Reports no additional respiratory complaints Gastrointestinal: Reports as per HPI and Reports no additional gastrointestinal complaints Genitourinary: Reports no additional female genitourinary complaints Musculoskeletal: Reports no additional musculoskeletal complaints Skin/Breast: Reports system reviewed and no additional complaints, except as docu Psychiatric: Reports no additional psychiatric complaints Endocrine: Reports no additional endocrine complaints Hematologic/Lymphatic: Reports no additional hematologic/lymphatic complaints Allergic/Immunologic: Reports no additional allergic/immunologic complaints Reports system reviewed and no additional complaints, except as documented and Reports Abnormal speech [facility] Past Medical History Medical History Hypotension Chronic UTI (urinary tract infection) Anemia Coronary artery disease Depression Hyperlipidemia CKD (chronic kidney disease) CVA (cerebral vascular accident) Liver cirrhosis Diabetes mellitus Chronic indwelling Smith catheter Cirrhosis of liver with ascites Hepatitis C Social History Social History Household Members: Unknown / Unable to assess Alcohol intake: former Patient Tobacco Use Status: Former Tobacco user Advance Directives: No Advance Directives Information Provided: No service: No Physical Exam ED Vital Signs: Vital Signs - 24 hr 08/06/24 09:42 08/06/24 11:28 08/06/24 12:24 Temperature 98.1 F 98.2 F Pulse Rate 112 H 107 H 96 Respiratory Rate 25 H 12 20 Blood Pressure 112/70 117/79 113/54 L Pulse Oximetry 97 97 99 Oxygen Delivery Method Room Air Room Air Room Air BMI result Body Mass Index 31.9 Vital signs have been reviewed and appear to be correct. Blood pressure elevated. Heart rate elevated, Respiratory rate normal. Temperature normal. Oxygen saturation normal. Appearance: Alert. Oriented X3. No acute distress. Head: Normal external exam. Normocephalic. Atraumatic. No Smart signs noted. No raccoon eyes noted Eyes: PERRLA. EOMI. Conjunctiva and sclera normal. Eyelids normal. ENT: TM's Normal. Pharynx normal. Uvula midline. Moist mucous membranes. No trismus noted. No drooling noted. No muffled voice noted. Neck: Normal inspection. Neck supple. FROM. No adenopathy. Thyroid Normal. No meningeal signs. No neck mass noted. CVS: Normal heart rate and rhythm. Heart sound normal. No murmurs noted. Pulses normal throughout. Respiratory: No respiratory distress. Painless inspiration. Breath sounds normal. No wheezes/rales/rhonchi noted. Chest nontender. No accessory muscle usage noted or decreased air movement noted. Abdomen: Severe abdominal distention With massive ascites, mild diffuse tenderness, no guarding, no rebound tenderness.Bowel sounds normal in all 4 quadrants. No distention noted. No organomegaly noted. No visible injury noted. Back: No CVA tenderness. Full range of motion noted. Skin: Skin warm and dry. Normal skin color. Normal skin turgor. No rashes/lesions/lacerations noted. Extremities: No lower extremity edema. Extremities exhibit normal range of motion. Extremities nontender. Neuro: Oriented X 3. Cranial nerve exam: II-XII are grossly intact No motor deficit. No sensory deficit. Reflexes normal. Procedures Paracentesis Time Out Performed: Yes Indication: possible spontaneous bacterial peritonitis Procedure: therapeutic paracentesis Location: LLQ Bedside Ultrasound Used: yes, Ascites confirmed and location marked Preparation: sterile prep and drape Amount of fluid obtained (mL): 9,325 Fluid: sent to lab for analysis Size of Needle Used: 5 Post Procedure Exam: awake, alert Patient Tolerated Procedure: well Complications: none Course Reevaluation(s) Reevaluation #1: Massive ascites with anasarca, s/p paracentesis 9.5 L ascitic fluid was drained and was sent for further testing. SBP is not likely with preliminary Gram stain is negative cultures still pending. Albumin IV replacement. LUZMA. Hyperkalemia with no EKG changes will monitor. Time: 14:39 Medical Decision Making Differential Diagnosis Differential Diagnoses: The differential diagnosis associated with the presentation includes ( Anasarca, electrolyte derangement, SBP, severe ascites, severe anemia, electrolyte derangement.) Admission/Observation Consideration of admission/observation: Escalation of care including admission/observation considered Consult Healthcare Provider Management of the patient was discussed with: Hospitalist ( Dr. Sena) Lab Data MDM Lab Attestation statement: I reviewed the patient's lab results. 08/06/24 10:48 08/06/24 10:48 Labs: Lab Results 08/06/24 08/06/24 08/06/24 Range/Units 10:48 10:49 12:47 WBC 6.3 (4.8-10.8) X10*3/uL RBC 3.14 L (4.60-5.80) X10*6/uL Hgb 8.6 L (14.0-18.0) g/dl Hct 26.7 L (42.0-52.0) % MCV 85.0 (80.0-98.0) fL MCH 27.4 (27.0-33.0) pg MCHC 32.2 (31.0-36.0) g/dl RDW 15.2 (11.0-16.0) % Plt Count 264 D (160-400) X10*3/uL MPV 9.1 L (9.4-12.4) fL Immature Gran % (Auto) 0.8 H (0.0-0.4) % Neut % (Auto) 67.8 (45-73) % Lymph % (Auto) 20.0 (20-40) % [place] % (Auto) 8.8 (2-11) % Eos % (Auto) 2.1 (0-4) % Baso % (Auto) 0.5 (0-2) % Lymph # (Auto) 1.3 (1.2-4.9) X10*3/uL [place] # (Auto) 0.6 (0.1-1.2) X10*3/uL Eos # (Auto) 0.1 (0.0-0.4) X10*3/uL Baso # (Auto) 0.0 (0.0-0.2) X10*3/uL Abs Immat Gran (auto) 0.05 H (0.00-0.03) X10*3/uL Absolute Neuts (auto) 4.2 (2.0-8.3) x10*3/uL Absolute Nucleated RBC 0.000 (0.0-0.012) X10*3/uL Nucleated RBC % (auto) 0.0 (0.0-0.2) /100WBC PT 16.9 H D (10.9-12.4) SEC INR 1.4 H (0.9-1.1) Sodium 133 L (135-145) mmol/L Potassium 5.6 H D (3.3-5.1) mmol/L Chloride 102 (96-108) mmol/L Carbon Dioxide 23 (22-29) mmol/L Anion Gap 14 (12-20) BUN 43 H (9-16) mg/dL Creatinine 1.52 H (0.5-1.4) mg/dL Estim Creat Clear Calc 52.9 Estimated GFR 46 Random Glucose 107 (60-115) mg/dL Calcium 8.3 L (8.4-10.2) mg/dL Total Bilirubin 0.2 (0.0-1.0) mg/dL Direct Bilirubin < 0.2 (0.0-0.5) mg/dL AST 26 (5-37) U/L ALT 10 (0-40) U/L Alkaline Phosphatase 62 (39-117) U/L Ammonia 27 (13-55) umol/L B-Natriuretic Peptide 73 (<100) pg/mL Total Protein 6.2 L (6.5-8.0) g/dL Albumin 2.5 L (3.5-5.0) g/dL Peritoneal WBC 0.050 X10*3/uL Peritoneal RBC < 0.002 X10*6/uL Periton Neutrophils 6 % Periton Lymphocytes 46 % Peritoneal Monocytes 25 % Peritoneal Other Cells 23 % Medications Administered Generic Name Dose Route Start Last Admin Trade Name Freq PRN Reason Stop Dose Admin Albumin Human 100 mls @ 133.333 mls/hr 08/06/24 13:45 08/06/24 14:15 Kedbumin 25 % IV 08/06/24 15:29 133.33 mls/hr Q1H LOTTIE Administration Discontinued Medications Generic Name Dose Route Start Last Admin Trade Name Freq PRN Reason Stop Dose Admin Albumin Human 50 mls @ 100 mls/hr 08/06/24 11:24 08/06/24 12:24 Kedbumin 25 % IV 08/06/24 11:53 Infused ONCE ONE Infusion Discharge Plan Discharge Clinical Impression: Anasarca, Ascites, [id number] kidney injury Patient Disposition: Admitted As Inpatient Print Language: [place] Islander
--- OUTSIDE RECORDS SUMMARY | 2024-08-06 10:40 | XMS_ITS | Encounter Summary ---
Author Organization [facility] Address [address] [place] [address] Care Team Providers Care Floor Mechanic Name Role Phone Priscilla Doan MD Primary Care Provider + Encounter Details Date Type Department Care Team (Late st Contact Info) Description 07/15/[address] 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 Social History Tobacco Use Types Packs/Day Years Used Date Smoking Tobacco: Never Assessed Sex and Gender Information Value Date Recorded Sex Assigned at Not on file Legal Sex Male 5:43 PM EST Gender Identity Not on file Sexual Orientation Not on file documented as of this encounter Plan of Treatment Not on file documented as of this encounter Visit Diagnoses Diagnosis Unspecified viral hepatitis C 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 documented in this encounter Care Teams Floor Mechanic Relationship Specialty Start Date End Date Priscilla Doan MD [address] [place] [id number] PCP - General Family Medicine 06/18/24 documented as of this encounter
--- OUTSIDE RECORDS SUMMARY | 2024-08-06 10:40 | XMS_ITS | Encounter Summary ---
Author Organization [facility] Address [address] [place] [address] Care Team Providers Care An Employee Sponsor Or Advocate And Name Role Phone Priscilla Doan MD Primary Care Provider + Encounter Details Date Type Department Care Team (Late st Contact Info) Description 07/14/2024 Lab Requisition [facility] - Main Lab [address] [facility] [place] [address] Priscilla Doan MD [address] [address] Unspecified cirrhosis of liver (CMS/HCC) Social History [...] Associated Diagnosis Comments COMPLETE BLOOD COUNT Routine 07/14/2024 6:10 AM EST Unspecified cirrhosis of liver (CMS/HCC) COMPREHENSIVE METABOLIC PANEL Routine 07/14/2024 6:10 AM EST Unspecified cirrhosis of liver (CMS/HCC) documented in this encounter Results * (ABNORMAL) Comprehensive metabolic panel (07/14/2024 6:10 AM EST) Sodium 133 133 - 145 mmol/L LAB CHEMISTRY METHOD 07/14/2024 11:41 AM EST [facility] Potassium 5.9(H) 3.5 - 5.5 mmol/L LAB CHEMISTRY METHOD 07/14/2024 11:41 AM EST [facility] Chloride 103 96 - 110 mmol/L LAB CHEMISTRY METHOD 07/14/2024 11:41 AM [facility] CO2 22 21 - 32 mmol/L LAB CHEMISTRY METHOD 07/14/2024 11:41 AM [facility] Anion Gap 8 3 - 11 LAB CHEMISTRY METHOD 07/14/2024 11:41 AM [facility] Glucose 95 70 - 100 mg/dL LAB CHEMISTRY METHOD 07/14/2024 11:41 AM [facility] BUN 45(H) 5 - 25 mg/dL LAB CHEMISTRY METHOD 07/14/2024 11:41 AM [facility] Creatinine 1.63(H) 0.70 - 1.30 mg/dL LAB CHEMISTRY METHOD 07/14/2024 11:41 AM [facility] eGFR 46(L) >=60 mL/min/1. 73m2 LAB CHEMISTRY METHOD 07/14/2024 11:41 AM [facility] Comment:Calculation based on the??Chronic Kidney Disease Epidemiology Collaboration (CKD-EPI) equation refit??without adjustment for race. BUN/Creatinine Ratio 27.6 LAB CHEMISTRY METHOD 07/14/2024 11:41 AM [facility] Calcium 9.2 8.5 - 10.5 mg/dL LAB CHEMISTRY METHOD 07/14/2024 11:41 AM [facility] AST (SGOT) 21 10 - 42 unit/L LAB CHEMISTRY METHOD 07/14/2024 11:41 AM [facility] ALT (SGPT) 18 10 - 60 unit/L LAB CHEMISTRY METHOD 07/14/2024 11:41 AM [facility] Alkaline Phosphatase 70 42 - 121 unit/L LAB CHEMISTRY METHOD 07/14/2024 11:41 AM [facility] Total Protein 6.2 6.0 - 8.0 g/dL LAB CHEMISTRY METHOD 07/14/2024 11:41 AM [facility] Albumin 2.0(L) 3.2 - 5.0 g/dL LAB CHEMISTRY METHOD 07/14/2024 11:41 AM EST [facility] Total Bilirubin 0.2 0.0 - 1.4 mg/dL LAB CHEMISTRY METHOD 07/14/2024 11:41 AM [facility] Blood Venous blood specimen / Unknown Venipuncture / Unknown 07/14/2024 6:10 AM EST 07/14/2024 10:13 AM EST us Priscilla Doan MD LAB BLOOD ORDERABLES Fin al Result [facility] [address] [place] [address], * (ABNORMAL) Complete blood count (07/14/2024 6:10 AM EST) WBC 6.8 4.8 - 10.8 K/mcL LAB HEMETOLOGY METHOD 07/14/2024 11:13 AM [facility] RBC 3.20(L) 4.50 - 5.50 M/mcL LAB HEMETOLOGY METHOD 07/14/2024 11:13 AM [facility] Hemoglobin 8.7(L) 13.5 - 17.5 g/dL LAB HEMETOLOGY METHOD 07/14/2024 11:13 AM [facility] Hematocrit 29.3(L) 42.0 - 54.0 % LAB HEMETOLOGY METHOD 07/14/2024 11:13 AM [facility] MCV 91.0 79.0 - 98.0 FL LAB HEMETOLOGY METHOD 07/14/2024 11:13 AM [facility] MCH 27.0 27.0 - 32.0 pcg LAB HEMETOLOGY METHOD 07/14/2024 11:13 AM [facility] MCHC 29.7(L) 32.0 - 37.0 g/dL LAB HEMETOLOGY METHOD 07/14/2024 11:13 AM EST [facility] RDW 16.3(H) 11.0 - 15.0 % LAB HEMETOLOGY METHOD 07/14/2024 11:13 AM EST [facility] Platelets 197 130 - 400 K/mcL LAB HEMETOLOGY METHOD 07/14/2024 11:13 AM [facility] MPV 10.0 7.0 - 11.0 FL LAB HEMETOLOGY METHOD 07/14/2024 11:13 AM EST [facility] NRBC 0.0 <1.0 % LAB HEMETOLOGY METHOD 07/14/2024 11:13 AM EST [facility] NRBC Absolute 0.00 <0.10 K/mcL LAB HEMETOLOGY METHOD 07/14/2024 11:13 AM [facility] Blood Venous blood specimen / Unknown Venipuncture / Unknown 07/14/2024 6:10 AM EST 07/14/2024 10:13 AM EST us Priscilla Doan MD LAB BLOOD ORDERABLES Fin al Result [facility] [address] [place] [address], documented in this encounter Visit Diagnoses Diagnosis Unspecified cirrhosis of liver (CMS/HCC) documented in this encounter Care Teams An Employee Sponsor Or Advocate And Relationship Specialty Start Date End Date Priscilla Doan MD [address] [address] PCP - General Family Medicine 06/18/24 documented as of this encounter
--- OUTSIDE RECORDS SUMMARY | 2024-08-06 10:40 | XMS_ITS | Encounter Summary ---
Author Organization [facility] Address [address] [place] [address] Care Team Providers Care News Agent Name Role Phone Priscilla Doan MD Primary Care Provider + Encounter Details Date Type Department Care Team (Late st Contact Info) Description 06/10/2024 Lab Requisition [facility] - Main Lab [address] [facility] [place] [address] Priscilla Doan MD [address] [address] Unspecified viral hepatitis C 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 [...] LAB CHEMISTRY METHOD 06/13/2024 2:19 PM EST [facility] Potassium 5.0 3.5 - 5.5 mmol/L LAB CHEMISTRY METHOD 06/13/2024 2:19 PM EST [facility] Chloride 104 96 - 110 mmol/L LAB CHEMISTRY METHOD 06/13/2024 2:19 PM [facility] CO2 25 21 - 32 mmol/L LAB CHEMISTRY METHOD 06/13/2024 2:19 PM [facility] Anion Gap 7 3 - 11 LAB CHEMISTRY METHOD 06/13/2024 2:19 PM [facility] Glucose 96 70 - 100 mg/dL LAB CHEMISTRY METHOD 06/13/2024 2:19 PM [facility] BUN 39(H) 5 - 25 mg/dL LAB CHEMISTRY METHOD 06/13/2024 2:19 PM [facility] Creatinine 1.42(H) 0.70 - 1.30 mg/dL LAB CHEMISTRY METHOD 06/13/2024 2:19 PM [facility] eGFR 54(L) >=60 mL/min/1. 73m2 LAB CHEMISTRY METHOD 06/13/2024 2:19 PM [facility] Comment:Calculation based on the??Chronic Kidney Disease Epidemiology Collaboration (CKD-EPI) equation refit??without adjustment for race. BUN/Creatinine Ratio 27.5 LAB CHEMISTRY METHOD 06/13/2024 2:19 PM [facility] Calcium 9.1 8.5 - 10.5 mg/dL LAB CHEMISTRY METHOD 06/13/2024 2:19 PM [facility] AST (SGOT) 65(H) 10 - 42 unit/L LAB CHEMISTRY METHOD 06/13/2024 2:19 PM [facility] ALT (SGPT) 69(H) 10 - 60 unit/L LAB CHEMISTRY METHOD 06/13/2024 2:19 PM [facility] Alkaline Phosphatase 140(H) 42 - 121 unit/L LAB CHEMISTRY METHOD 06/13/2024 2:19 PM [facility] Total Protein 5.9(L) 6.0 - 8.0 g/dL LAB CHEMISTRY METHOD 06/13/2024 2:19 PM [facility] Albumin 2.0(L) 3.2 - 5.0 g/dL LAB CHEMISTRY METHOD 06/13/2024 2:19 PM EST [facility] Total Bilirubin 0.3 0.0 - 1.4 mg/dL LAB CHEMISTRY METHOD 06/13/2024 2:19 PM [facility] Blood Venous blood specimen / Unknown Venipuncture / Unknown 06/13/2024 9:56 AM EST 06/13/2024 12:25 PM EST us Priscilla Doan MD LAB BLOOD ORDERABLES Fin al Result [facility] [address] [place] [address], * (ABNORMAL) Complete blood count (06/13/2024 9:56 AM EST) WBC 6.1 4.8 - 10.8 K/mcL LAB HEMETOLOGY METHOD 06/13/2024 1:31 PM [facility] RBC 3.40(L) 4.50 - 5.50 M/mcL LAB HEMETOLOGY METHOD 06/13/2024 1:31 PM [facility] Hemoglobin 9.3(L) 13.5 - 17.5 g/dL LAB HEMETOLOGY METHOD 06/13/2024 1:31 PM [facility] Hematocrit 30.0(L) 42.0 - 54.0 % LAB HEMETOLOGY METHOD 06/13/2024 1:31 PM [facility] MCV 88.8 79.0 - 98.0 FL LAB HEMETOLOGY METHOD 06/13/2024 1:31 PM [facility] MCH 27.5 27.0 - 32.0 pcg LAB HEMETOLOGY METHOD 06/13/2024 1:31 PM [facility] MCHC 31.0(L) 32.0 - 37.0 g/dL LAB HEMETOLOGY METHOD 06/13/2024 1:31 PM EST [facility] RDW 16.5(H) 11.0 - 15.0 % LAB HEMETOLOGY METHOD 06/13/2024 1:31 PM EST [facility] Platelets 254 130 - 400 K/mcL LAB HEMETOLOGY METHOD 06/13/2024 1:31 PM [facility] MPV 9.8 7.0 - 11.0 FL LAB HEMETOLOGY METHOD 06/13/2024 1:31 PM EST [facility] NRBC 0.0 <1.0 % LAB HEMETOLOGY METHOD 06/13/2024 1:31 PM EST [facility] NRBC Absolute 0.00 <0.10 K/mcL LAB HEMETOLOGY METHOD 06/13/2024 1:31 PM [facility] Blood Venous blood specimen / Unknown Venipuncture / Unknown 06/13/2024 9:56 AM EST 06/13/2024 12:25 PM EST us Priscilla Doan MD LAB BLOOD ORDERABLES Fin al Result [facility] [address] [place] [address], documented in this encounter Visit Diagnoses Diagnosis Unspecified viral hepatitis C 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 documented in this encounter Care Teams News Agent Relationship Specialty Start Date End Date Priscilla Doan MD [address] [address] PCP - General Family Medicine 06/18/24 documented as of this encounter
--- OUTSIDE RECORDS SUMMARY | 2024-08-06 10:40 | XMS_ITS | Continuity of Care Document ---
Author Organization [facility] Address [address] [place] [address]- Care Team Providers Care Artificial Flowers Dyer Name Role Phone Elder , Priscilla Anaya Primary Care Physicia n Encounter [facility] Date(s): 06/15/24 - 07/15/24 [facility] [address] [place], [place] [address] Attending Physician: Fabienne Aldana Admitting Physician: Fabienne Aldana Referring Physician: Fabienne Aldana Encounter Type: Triage Allergies, Adverse Reactions, Alerts No Known Medication [...] Refills, Maintenance, 02/03/24 10:17:00 AM EDT, Tablet, [facility]/pharmacy #[id number], Partial fill upon patient request if [...] 10:17:00 AM EDT, Route to Pharmacy Electronically, [facility]/pharmacy #[id number], Partial fill upon patient request if [...] Refills, Maintenance, 02/03/24 10:17:00 AM EDT, Tablet, [facility]/pharmacy #[id number], Partial fill upon patient request if [...] Refills, Maintenance, 02/03/24 10:17:00 AM EDT, Tablet, [facility]/pharmacy #[id number], Partial fill upon patient request if [...] Refills, Maintenance, 02/03/24 10:17:00 AM EDT, Tablet, [facility]/pharmacy #[id number], Partial fill upon patient request if [...] 11:48:00 AM EST, Route to Pharmacy Electronically, [facility], Partial fill upon patient request [...] 0 Refills, Maintenance, 02/02/2410:17:00 AM EDT, Syrup, [facility]/pharmacy #[id number], Partial fill upon patient request if [...] Refills, Maintenance, 02/03/24 10:16:00 AM EDT, Tablet, [facility]/pharmacy #[id number], Partial fill upon patient request if [...] 10:18:00 AM EDT, Route to Pharmacy Electronically, [facility]acy [id number], Partial fill upon patient request [...] 10:18:00 AM EDT, Route to Pharmacy Electronically, [id number], Partial fill upon patient request [...] 01/28/24 Active 1Problem added by Discern Expert Patient Care team information Care Team Personnel Name: Flaquita Mota RN Position: [facility] RN Member Role: Primary Care Nurse Name: Priscilla Doan MD Position: [facility] Physician - Neurology Member Role: PCP Address: [address] [place] [address] [address] [facility] [address] Telecom: Name: Ina Nowak RN Position: S RN Member Role: Primary Care Nurse Name: Lani Muñoz RN Position: S RN Member Role: Primary Care Nurse Name: Sana Beltrán RN Position: [facility] RN Member Role: Primary Care Nurse Name: [...] Care Nurse Name: Renny Johnson MD Position: [facility] Renal MD Member Role: Lifetime Consulting Physician Address: [address] [place] [address] [address] [facility] [id number] Telecom: Name: Vinay Zaragoza RN Position: S [...] Name: ROGELIO ESTRADA Insurance Providers Guarantor name: [facility] Information #: 1 Payer: MEDICARE PART B OUTPT Member Number: NA Policy Number: NA Group Number: NA Health Plan Information #: 2 Payer: [facility] Member Number: NA Policy Number: NA Group Number: NA
--- OUTSIDE RECORDS SUMMARY | 2024-08-06 10:40 | XMS_ITS | Clinical Summary ---
Author Organization 299 [facility] Address [address] [place] [address] Phone Care Team Providers Care Burner Tender Name Role Phone Priscilla Doan MD Primary Care Provider + Encounters Date Type Department Care Team Description 08/04/2024 Lab Requisition [facility] - Main Lab [address] [place] [phone] Priscilla Doan MD Unspecified viral hepatitis C 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; Type 2 diabetes mellitus without complications (CMS/HCC) 08/03/2024 Lab Requisition [facility] Main Lab [address] [place] [phone] Priscilla Doan MD Chronic kidney disease, unspecified 07/30/2024 Lab Requisition [facility] Lab [address] [place] [phone] Priscilla Doan MD Essential (primary) hypertension; Type 2 diabetes mellitus without complications (CMS/HCC) 07/28/2024 Lab Requisition [facility] - Main Lab [address] [place] [phone] Priscilla Doan MD Unspecified viral hepatitis C 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; Type 2 diabetes mellitus without complications (CMS/HCC) 07/26/2024 Lab Requisition [facility] Main Lab [address] [place] [phone] Priscilla Doan MD Type 2 diabetes mellitus without complications (CMS/HCC); Chronic viral hepatitis C (CMS/HCC); Chronic kidney disease, stage 3 unspecified (CMS/HCC) 07/22/2024 Lab Requisition [facility] Main Lab [address] [place] [phone] Priscilla Doan MD Hyperkalemia; Unspecified cirrhosis of liver (CMS/HCC); Unspecified viral hepatitis C 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; Type 2 diabetes mellitus without complications (CMS/HCC); Other cirrhosis of liver (CMS/HCC) 07/15/2024 Lab Requisition [facility] - Main Lab [address] [place] [phone] Priscilla Doan MD Unspecified viral hepatitis C 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 07/15/2024 Lab Requisition [facility] - Main Lab [address] [place] [address] Noman Pastrana MD Retention of urine, unspecified 07/14/2024 Lab Requisition [facility] Lab [address] [place] [address] Priscilla Doan MD Unspecified cirrhosis of liver (CMS/HCC) 07/09/2024 Lab Requisition [facility] - Main Lab [address] [place] [address] Priscilla Doan MD Unspecified viral hepatitis C 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 07/01/2024 Lab Requisition [facility] - Main Lab [address] [place] [address] Priscilla Doan MD Unspecified viral hepatitis C 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 06/30/2024 Lab Requisition [facility] Lab [address] [place] [address] Noman Pastrana PA Unspecified viral hepatitis C 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; Acute embolism and thrombosis of unspecified deep veins of right lower extremity (CMS/HCC); Unspecified cirrhosis of liver (CMS/HCC) 06/24/2024 Lab Requisition [facility] Main Lab [address] [place] [address] Priscilla Doan MD Unspecified viral hepatitis C 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 06/23/2024 Lab Requisition [facility] Main Lab [address] [place] [address] Priscilla Doan MD Unspecified cirrhosis of liver (CMS/HCC) 06/18/2024 Lab Requisition [facility] Lab [address] [place] [address] Priscilla Doan MD Unspecified viral hepatitis C 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 06/10/2024 Lab Requisition [facility] Lab [address] [place] [address] Priscilla Doan MD Unspecified viral hepatitis C [...] Health Maintenance Due Date Last Done Comments Diabetes: Annual Foot Exam 07/28/1965 Diabetes: Annual Retina Eye Exam 07/28/1965 DTaP,Tdap,and Td Vaccines (1 - Tdap) 07/28/1974 Hepatitis A Vaccines (1 of 2 - Risk 2-dose series) 07/28/1974 Pneumococcal Vaccine: 50+ Years (1 of 2 - PCV) 07/28/1974 Zoster Vaccines (1 of 2) 07/28/2005 Hepatitis B Vaccines (1 of 3 - Risk 3-dose series) 2015 RSV Immunization Patients 60+ Years Old (1 - Risk 60-74 years 1-dose series) 2015 COVID-19 Vaccine ( season) 2024 Influenza Vaccine (#1) 2024 Abdominal Aortic Aneurysm (AAA) Screen 06/11/2024 Cholesterol Screening (Lipid Panel) 06/11/2024 Colorectal Cancer Screening: Colonoscopy 06/11/2024 Depression Screening 06/11/2024 Falls Risk Assessment 06/11/2024 Hepatitis C Screening 06/11/2024 Medicare Annual Wellness Visit 06/11/2024 Social Influencers of Health Screening 06/11/2024 Diabetes: Annual Urine Albumin-Creatinine Ratio (uACR) 07/22/2024 Diabetes: Blood Sugar Control Test (HGBA1C) 02/01/2025 08/01/2024 Diabetes: Annual GFR (Glomerular Filtration Rate) 08/05/2025 08/05/2024, 08/03/2024, 08/01/2024, Additional history exists Hypertension/CHF/CAD Annual BMP Blood Test 08/05/2025 08/05/2024, 08/03/2024, 08/01/2024, Additional history exists HIB Vaccines Aged Out No longer eligi [...] patient's age to complete this topic Meningococcal B Vacine Aged Out No lo nger eligible based on patient's age to complete this topic RSV Immunization Patients Under 20 months Aged Out No longer eligible based on patient's age to complete this topic Varicella Vaccines Aged Out No longer eligible based on patient's age to complete this topic Procedures Procedure Name Priority Date/Time Associated Diagnosis Comments COMPREHENSIVE METABOLIC PANEL Routine 08/05/2024 7:23 AM EDT Unspecified viral hepatitis C 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 Type 2 diabetes mellitus without complications (CMS/HCC) COMPLETE BLOOD COUNT Routine 08/05/2024 7:23 AM EDT Unspecified viral hepatitis C 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 Type 2 diabetes mellitus without complications (CMS/HCC) BASIC METABOLIC PANEL Routine 08/03/2024 8:00 AM EDT Chronic kidney disease, unspecified HEMOGLOBIN A1C Routine 08/01/2024 9:23 AM EDT Essential (primary) hypertension Type 2 diabetes mellitus without complications (CMS/HCC) COMPREHENSIVE METABOLIC PANEL Routine 08/01/2024 9:23 AM EDT Essential (primary) hypertension Type 2 diabetes mellitus without complications (CMS/HCC) COMPLETE BLOOD COUNT Routine 08/01/2024 9:23 AM EDT Essential (primary) hypertension Type 2 diabetes mellitus without complications (CMS/HCC) COMPREHENSIVE METABOLIC PANEL Routine 2024 9:00 AM EST Unspecified viral hepatitis C 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 Type 2 diabetes mellitus without complications (CMS/HCC) COMPLETE BLOOD COUNT Routine 2024 9:00 AM EST Unspecified viral hepatitis C 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 Type 2 diabetes mellitus without complications (CMS/HCC) BASIC METABOLIC PANEL Routine 07/26/2024 5:29 AM EST Type 2 diabetes mellitus without complications (CMS/HCC) Chronic viral hepatitis C (CMS/HCC) Chronic kidney disease, stage 3 unspecified (CMS/HCC) COMPREHENSIVE METABOLIC PANEL Routine 07/22/2024 5:21 AM EST Hyperkalemia Unspecified cirrhosis of liver (CMS/HCC) Unspecified viral hepatitis C 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 Type 2 diabetes mellitus without complications (CMS/HCC) Other cirrhosis of liver (CMS/HCC) COMPLETE BLOOD COUNT Routine 07/22/2024 5:21 AM EST Hyperkalemia Unspecified cirrhosis of liver (CMS/HCC) Unspecified viral hepatitis C 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 Type 2 diabetes mellitus without complications (CMS/HCC) Other cirrhosis of liver (CMS/HCC) BASIC METABOLIC PANEL Routine 07/15/2024 5:33 AM EST Retention of urine, unspecified COMPREHENSIVE METABOLIC PANEL Routine 07/14/2024 6:10 AM EST Unspecified cirrhosis of liver (CMS/HCC) COMPLETE BLOOD COUNT Routine 07/14/2024 6:10 AM EST Unspecified cirrhosis of liver (CMS/HCC) COMPREHENSIVE METABOLIC PANEL Routine 07/11/2024 8:26 AM EST Unspecified viral hepatitis C 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 COMPLETE BLOOD COUNT Routine 07/11/2024 8:26 AM EST Unspecified viral hepatitis C 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 COMPREHENSIVE METABOLIC PANEL Routine 07/04/2024 9:44 AM EST Unspecified viral hepatitis C 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 COMPLETE BLOOD COUNT Routine 07/04/2024 9:44 AM EST Unspecified viral hepatitis C 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 COMPREHENSIVE METABOLIC PANEL Routine 06/30/2024 6:59 AM EST Unspecified viral hepatitis C 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 Acute embolism and thrombosis of unspecified deep veins of right lower extremity (CMS/HCC) Unspecified cirrhosis of liver (CMS/HCC) COMPLETE BLOOD COUNT Routine 06/30/2024 6:59 AM EST Unspecified viral hepatitis C 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 WBC 5.7 4.8 - 10.8 K/mcL LAB HEMETOLOGY METHOD 08/05/2024 9:53 AM EDT [facility] LAB RBC 3.00(L) 4.50 - 5.50 M/mcL LAB HEMETOLOGY METHOD 08/05/2024 9:53 AM EDT [facility] LAB Hemoglobin 8.2(L) 13.5 - 17.5 g/dL LAB HEMETOLOGY METHOD 08/05/2024 9:53 AM EDT [facility] LAB Hematocrit 26.4(L) 42.0 - 54.0 % LAB HEMETOLOGY METHOD 08/05/2024 9:53 AM EDT [facility] LAB MCV 88.0 79.0 - 98.0 FL LAB HEMETOLOGY METHOD 08/05/2024 9:53 AM EDT [facility] LAB MCH 27.3 27.0 - 32.0 pcg LAB HEMETOLOGY METHOD 08/05/2024 9:53 AM EDT [facility] LAB MCHC 31.1(L) 32.0 - 37.0 g/dL LAB HEMETOLOGY METHOD 08/05/2024 9:53 AM EDT [facility] LAB RDW 15.1(H) 11.0 - 15.0 % LAB HEMETOLOGY METHOD 08/05/2024 9:53 AM EDT [facility] LAB Platelets 263 130 - 400 K/mcL LAB HEMETOLOGY METHOD 08/05/2024 9:53 AM EDT [facility] LAB MPV 9.8 7.0 - 11.0 FL LAB HEMETOLOGY METHOD 08/05/2024 9:53 [facility] NRBC 0.0 <1.0 % LAB HEMETOLOGY METHOD 08/05/2024 9:53 AM EDT [facility] LAB NRBC Absolute 0.00 <0.10 K/mcL LAB HEMETOLOGY METHOD 08/05/2024 9:53 AM [facility] LAB Blood Venous blood specimen / Unknown Venipuncture / Unknown 08/05/2024 7:23 AM EDT 08/05/2024 9:28 AM EDT us Priscilla Doan MD LAB BLOOD ORDERABLES Fin al Result [facility] LAB [address] [place] [address], * (ABNORMAL) Comprehensive metabolic panel (08/05/2024 7:23 AM EDT) Only the most recent of10 resultswithin the time period is included. Sodium 133 133 - 145 mmol/L LAB CHEMISTRY METHOD 08/05/2024 10:28 AM [facility] LAB Potassium 5.8(H) 3.5 - 5.5 mmol/L LAB CHEMISTRY METHOD 08/05/2024 10:28 AM [facility] LAB Chloride 101 96 - 110 mmol/L LAB CHEMISTRY METHOD 08/05/2024 10:28 AM [facility] LAB CO2 27 21 - 32 mmol/L LAB CHEMISTRY METHOD 08/05/2024 10:28 AM [facility] LAB Anion Gap 5 3 - 11 LAB CHEMISTRY METHOD 08/05/2024 10:28 AM [facility] LAB Glucose 82 70 - 100 mg/dL LAB CHEMISTRY METHOD 08/05/2024 10:28 AM [facility] LAB BUN 41(H) 5 - 25 mg/dL LAB CHEMISTRY METHOD 08/05/2024 10:28 AM [facility] LAB Creatinine 1.53(H) 0.70 - 1.30 mg/dL LAB CHEMISTRY METHOD 08/05/2024 10:28 AM [facility] LAB eGFR 49(L) >=60 mL/min/1. 73m2 LAB CHEMISTRY METHOD 08/05/2024 10:28 AM [facility] LAB Comment:Calculation based on the??Chronic Kidney Disease Epidemiology Collaboration (CKD-EPI) equation refit??without adjustment for race. BUN/Creatinine Ratio 26.8 LAB CHEMISTRY METHOD 08/05/2024 10:28 AM [facility] LAB Calcium 8.5 8.5 - 10.5 mg/dL LAB CHEMISTRY METHOD 08/05/2024 10:28 [facility] AST (SGOT) 23 10 - 42 unit/L LAB CHEMISTRY METHOD 08/05/2024 10:28 AM [facility] LAB ALT (SGPT) 19 10 - 60 unit/L LAB CHEMISTRY METHOD 08/05/2024 10:28 AM [facility] LAB Alkaline Phosphatase 68 42 - 121 unit/L LAB CHEMISTRY METHOD 08/05/2024 10:28 AM [facility] LAB Total Protein 5.5(L) 6.0 - 8.0 g/dL LAB CHEMISTRY METHOD 08/05/2024 10:28 AM [facility] LAB Albumin 1.8(L) 3.2 - 5.0 g/dL LAB CHEMISTRY METHOD 08/05/2024 10:28 AM [facility] LAB Total Bilirubin 0.3 0.0 - 1.4 mg/dL LAB CHEMISTRY METHOD 08/05/2024 10:28 AM [facility] LAB Blood Venous blood specimen / Unknown Venipuncture / Unknown 08/05/2024 7:23 AM EDT 08/05/2024 9:29 AM EDT us Priscilla Doan MD LAB BLOOD ORDERABLES Fin al Result [facility] LAB [address] [place] [address], * (ABNORMAL) Basic metabolic panel (08/03/2024 8:00 AM EDT) Only the most recent of3 resultswithin the time period is included. Sodium 134 133 - 145 mmol/L LAB CHEMISTRY METHOD 08/03/2024 12:54 PM [facility] LAB Potassium 5.5 3.5 - 5.5 mmol/L LAB CHEMISTRY METHOD 08/03/2024 12:54 PM [facility] LAB Chloride 102 96 - 110 mmol/L LAB CHEMISTRY METHOD 08/03/2024 12:54 PM [facility] LAB CO2 24 21 - 32 mmol/L LAB CHEMISTRY METHOD 08/03/2024 12:54 PM [facility] LAB Anion Gap 8 3 - 11 LAB CHEMISTRY METHOD 08/03/2024 12:54 PM [facility] LAB Glucose 86 70 - 100 mg/dL LAB CHEMISTRY METHOD 08/03/2024 12:54 PM [facility] LAB BUN 40(H) 5 - 25 mg/dL LAB CHEMISTRY METHOD 08/03/2024 12:54 PM [facility] LAB Creatinine 1.36(H) 0.70 - 1.30 mg/dL LAB CHEMISTRY METHOD 08/03/2024 12:54 PM [facility] LAB eGFR 56(L) >=60 mL/min/1. 73m2 LAB CHEMISTRY METHOD 08/03/2024 12:54 PM [facility] LAB Comment:Calculation based on the??Chronic Kidney Disease Epidemiology Collaboration (CKD-EPI) equation refit??without adjustment for race. BUN/Creatinine Ratio 29.4 LAB CHEMISTRY METHOD 08/03/2024 12:54 PM [facility] LAB Calcium 8.8 8.5 - 10.5 mg/dL LAB CHEMISTRY METHOD 08/03/2024 12:54 PM [facility] LAB Blood Venous blood specimen / Unknown Venipuncture / Unknown 08/03/2024 8:00 AM EDT 08/03/2024 10:45 AM EDT us Priscilla Doan MD LAB BLOOD ORDERABLES Fin al Result [facility] LAB [address] [place] [address], * Hemoglobin A1c (08/01/2024 9:23 AM EDT) Hemoglobin A1C 5.8 <6.5 % LAB CHEMISTRY METHOD 08/01/2024 1:50 PM EDT [facility] LAB Mean Bld Glu Estim. 120 mg/dL LAB CHEMISTRY METHOD 08/01/2024 1:50 PM EDT [facility] LAB Blood Venous blood specimen / Unknown Venipuncture / Unknown 08/01/2024 9:23 AM EDT 08/01/2024 10:44 AM EDT Priscilla Doan MD LAB BLOOD ORDERABLES Fin al Result Performing Organization Address City/[facility]/ZIP Co de Phone Number [facility] LAB [address] [place] [address], [place] [phone] * Ammonia (06/23/2024 7:56 AM EST) Ammonia 18 11 - 35 mcmol/L LAB CHEMISTRY METHOD 06/23/2024 9:33 AM EST [facility] LAB Blood Venous blood specimen / Unknown Venipuncture / Unknown 06/23/2024 7:56 AM EST 06/23/2024 9:05 AM EST Priscilla Doan MD LAB BLOOD ORDERABLES Fin al Result Performing Organization Address City/[facility]/ZIP Co de Phone Number [facility] LAB [address] [place] [address], [place] [phone] from Last 3 Months Insurance MEDICARE MEDICAID - [place] Care Teams Burner Tender Relationship Specialty Start Date End Date Priscilla Doan MD [address] [address] PCP - General Family Medicine 06/18/24
--- OUTSIDE RECORDS SUMMARY | 2024-08-06 10:40 | XMS_ITS | Encounter Summary ---
Author Organization [facility] Address [address] [place] [address] Care Team Providers Care Repairer Screen Crusher Name Role Phone Priscilla Doan MD Primary Care Provider + Encounter Details Date Type Department Care Team (Late st Contact Info) Description 06/24/2024 Lab Requisition [facility] - Main Lab 299 [facility] [place] [address] Priscilla Doan MD [address] [address] Unspecified viral hepatitis C 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 [...] coma documented in this encounter Care Teams Repairer Screen Crusher Relationship Specialty Start Date End Date Priscilla Doan MD [address] [place] [phone] PCP - General Family Medicine 06/18/24 documented as of this encounter
--- OUTSIDE RECORDS SUMMARY | 2024-08-06 10:40 | XMS_ITS | Encounter Summary ---
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 [...] Associated Diagnosis Comments COMPLETE BLOOD COUNT Routine 07/11/2024 8:26 AM EST Unspecified viral hepatitis C 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 COMPREHENSIVE METABOLIC PANEL Routine 07/11/2024 8:26 AM EST Unspecified viral hepatitis C 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 documented in this encounter Results * (ABNORMAL) Comprehensive metabolic panel (07/11/2024 8:26 AM EST) Sodium 138 133 - 145 mmol/L LAB CHEMISTRY METHOD 07/11/2024 10:57 AM EST [facility] LAB Potassium 5.8(H) 3.5 - 5.5 mmol/L LAB CHEMISTRY METHOD 07/11/2024 10:57 AM EST [facility] LAB Chloride 108 96 - 110 mmol/L LAB CHEMISTRY METHOD 07/11/2024 10:57 AM [facility] LAB CO2 20(L) 21 - 32 mmol/L LAB CHEMISTRY METHOD 07/11/2024 10:57 AM [facility] LAB Anion Gap 10 3 - 11 LAB CHEMISTRY METHOD 07/11/2024 10:57 AM [facility] LAB Glucose 90 70 - 100 mg/dL LAB CHEMISTRY METHOD 07/11/2024 10:57 AM [facility] LAB BUN 37(H) 5 - 25 mg/dL LAB CHEMISTRY METHOD 07/11/2024 10:57 AM [facility] LAB Creatinine 1.51(H) 0.70 - 1.30 mg/dL LAB CHEMISTRY METHOD 07/11/2024 10:57 AM [facility] LAB eGFR 50(L) >=60 mL/min/1. 73m2 LAB CHEMISTRY METHOD 07/11/2024 10:57 AM [facility] LAB Comment:Calculation based on the??Chronic Kidney Disease Epidemiology Collaboration (CKD-EPI) equation refit??without adjustment for race. BUN/Creatinine Ratio 24.5 LAB CHEMISTRY METHOD 07/11/2024 10:57 AM [facility] LAB Calcium 9.0 8.5 - 10.5 mg/dL LAB CHEMISTRY METHOD 07/11/2024 10:57 AM [facility] LAB AST (SGOT) 19 10 - 42 unit/L LAB CHEMISTRY METHOD 07/11/2024 10:57 AM [facility] LAB ALT (SGPT) 15 10 - 60 unit/L LAB CHEMISTRY METHOD 07/11/2024 10:57 AM [facility] LAB Alkaline Phosphatase 62 42 - 121 unit/L LAB CHEMISTRY METHOD 07/11/2024 10:57 AM [facility] LAB Total Protein 5.9(L) 6.0 - 8.0 g/dL LAB CHEMISTRY METHOD 07/11/2024 10:57 AM [facility] LAB Albumin 1.9(L) 3.2 - 5.0 g/dL LAB CHEMISTRY METHOD 07/11/2024 10:57 AM EST [facility] LAB Total Bilirubin 0.2 0.0 - 1.4 mg/dL LAB CHEMISTRY METHOD 07/11/2024 10:57 AM [facility] LAB Blood Venous blood specimen / Unknown Venipuncture / Unknown 07/11/2024 8:26 AM EST 07/11/2024 10:09 AM EST us Priscilla Doan MD LAB BLOOD ORDERABLES Fin al Result [facility] LAB [address] [place] [address], * (ABNORMAL) Complete blood count (07/11/2024 8:26 AM EST) WBC 5.7 4.8 - 10.8 K/mcL LAB HEMETOLOGY METHOD 07/11/2024 10:40 AM [facility] LAB RBC 3.10(L) 4.50 - 5.50 M/mcL LAB HEMETOLOGY METHOD 07/11/2024 10:40 AM [facility] LAB Hemoglobin 8.4(L) 13.5 - 17.5 g/dL LAB HEMETOLOGY METHOD 07/11/2024 10:40 AM [facility] LAB Hematocrit 27.9(L) 42.0 - 54.0 % LAB HEMETOLOGY METHOD 07/11/2024 10:40 AM [facility] LAB MCV 89.7 79.0 - 98.0 FL LAB HEMETOLOGY METHOD 07/11/2024 10:40 AM [facility] LAB MCH 27.0 27.0 - 32.0 pcg LAB HEMETOLOGY METHOD 07/11/2024 10:40 AM [facility] LAB MCHC 30.1(L) 32.0 - 37.0 g/dL LAB HEMETOLOGY METHOD 07/11/2024 10:40 AM EST [facility] LAB RDW 16.3(H) 11.0 - 15.0 % LAB HEMETOLOGY METHOD 07/11/2024 10:40 AM EST [facility] LAB Platelets 159 130 - 400 K/mcL LAB HEMETOLOGY METHOD 07/11/2024 10:40 AM EST [facility] LAB MPV 9.7 7.0 - 11.0 FL LAB HEMETOLOGY METHOD 07/11/2024 10:40 AM EST [facility] NRBC 0.0 <1.0 % LAB HEMETOLOGY METHOD 07/11/2024 10:40 AM EST [facility] LAB NRBC Absolute 0.00 <0.10 K/mcL LAB HEMETOLOGY METHOD 07/11/2024 10:40 AM [facility] LAB Blood Venous blood specimen / Unknown Venipuncture / Unknown 07/11/2024 8:26 AM EST 07/11/2024 10:09 AM EST us Priscilla Doan MD LAB BLOOD ORDERABLES Fin al Result [facility] [address] [place] [address], documented in this encounter Visit Diagnoses Diagnosis Unspecified viral hepatitis C 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
--- OUTSIDE RECORDS SUMMARY | 2024-08-06 10:40 | XMS_ITS | Encounter Summary ---
Author Organization [facility] Address [address] [place] [address] Care Team Providers Care Race Car Mechanic Name Role Phone [place], Priscilla Childs MD Primary Care Provider + Encounter Details Date Type Department Care Team (Late st Contact Info) Description 07/15/2024 Lab Requisition [facility] Lab 299 [facility] [employer] [place] [address] Noman Pastrana MD [address] [place] [address] [place] [id number] Retention of urine, unspecified Social History Tobacco Use Types Packs/Day Years [...] Procedure Name Priority Date/Time Associated Diagnosis Comments BASIC METABOLIC PANEL Routine 07/15/2024 5:33 AM EST Retention of urine, unspecified documented in this encounter Results * (ABNORMAL) Basic metabolic panel (07/15/2024 5:33 AM EST) Sodium 135 133 - 145 mmol/L LAB CHEMISTRY METHOD 07/15/2024 12:[address] [facility] Potassium 6.4(HH) 3.5 - 5.5 mmol/L LAB CHEMISTRY METHOD 07/15/2024 12:[address] [facility] Chloride 106 96 - 110 mmol/L LAB CHEMISTRY METHOD 07/15/2024 12:[address] [facility] CO2 21 21 - 32 mmol/L LAB CHEMISTRY METHOD 07/15/2024 12:30 PM [facility] Anion Gap 8 3 - 11 LAB CHEMISTRY METHOD 07/15/2024 12:30 PM [facility] Glucose 88 70 - 100 mg/dL LAB CHEMISTRY METHOD 07/15/2024 12:30 PM [facility] BUN 44(H) 5 - 25 mg/dL LAB CHEMISTRY METHOD 07/15/2024 12:30 PM [facility] Creatinine 1.58(H) 0.70 - 1.30 mg/dL LAB CHEMISTRY METHOD 07/15/2024 12:30 PM [facility] eGFR 47(L) >=60 mL/min/1. 73m2 LAB CHEMISTRY METHOD 07/15/2024 12:30 PM [facility] Comment:Calculation based on the??Chronic Kidney Disease Epidemiology Collaboration (CKD-EPI) equation refit??without adjustment for race. BUN/Creatinine Ratio 27.8 LAB CHEMISTRY METHOD 07/15/2024 12:30 PM [facility] Calcium 9.2 8.5 - 10.5 mg/dL LAB CHEMISTRY METHOD 07/15/2024 12:30 PM [facility] Blood Venous blood specimen / Unknown Venipuncture / Unknown 07/15/2024 5:33 AM EST 07/15/2024 10:49 AM EST us Noman Pastrana MD LAB BLOOD ORDERABLES Final Resu lt [facility] [address] [place] [address], documented in this encounter Visit Diagnoses Diagnosis Retention of urine, unspecified documented in this encounter Care Teams Race Car Mechanic Relationship Specialty Start Date End Date Priscilla Doan MD [address] [address] PCP - General Family Medicine 06/18/24 documented as of this encounter
--- OUTSIDE RECORDS SUMMARY | 2024-08-06 10:41 | XMS_ITS | Encounter Summary ---
Author Organization [facility] Address [address] [place] [address] Care Team Providers Care Multi Spindle Operator Name Role Phone Priscilla Doan MD Primary Care Provider + Encounter Details Date Type Department Care Team (Late st Contact Info) Description 08/04/2024 Lab Requisition [facility] - Main Lab 299 [facility] [place] [address] Priscilla Doan MD [address] [address] Unspecified viral hepatitis C 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; Type 2 diabetes mellitus without complications (CMS/HCC) Social History Tobacco Use Types Packs/Day [...] Associated Diagnosis Comments COMPLETE BLOOD COUNT Routine 08/05/2024 7:23 AM EDT Unspecified viral hepatitis C 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 Type 2 diabetes mellitus without complications (CMS/HCC) COMPREHENSIVE METABOLIC PANEL Routine 08/05/2024 7:23 AM EDT Unspecified viral hepatitis C 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 Type 2 diabetes mellitus without complications (CMS/HCC) documented in this encounter Results * (ABNORMAL) Comprehensive metabolic panel (08/05/2024 7:23 AM EDT) Sodium 133 133 - 145 mmol/L LAB CHEMISTRY METHOD 08/05/2024 10:28 AM EDT [facility] Potassium 5.8(H) 3.5 - 5.5 mmol/L LAB CHEMISTRY METHOD 08/05/2024 10:28 AM [facility] LAB Chloride 101 96 - 110 mmol/L LAB CHEMISTRY METHOD 08/05/2024 10:28 AM [facility] LAB CO2 27 21 - 32 mmol/L LAB CHEMISTRY METHOD 08/05/2024 10:28 AM [facility] LAB Anion Gap 5 3 - 11 LAB CHEMISTRY METHOD 08/05/2024 10:28 AM [facility] LAB Glucose 82 70 - 100 mg/dL LAB CHEMISTRY METHOD 08/05/2024 10:28 AM [facility] LAB BUN 41(H) 5 - 25 mg/dL LAB CHEMISTRY METHOD 08/05/2024 10:28 AM [facility] LAB Creatinine 1.53(H) 0.70 - 1.30 mg/dL LAB CHEMISTRY METHOD 08/05/2024 10:28 AM [facility] LAB eGFR 49(L) >=60 mL/min/1. 73m2 LAB CHEMISTRY METHOD 08/05/2024 10:28 AM [facility] LAB Comment:Calculation based on the??Chronic Kidney Disease Epidemiology Collaboration (CKD-EPI) equation refit??without adjustment for race. BUN/Creatinine Ratio 26.8 LAB CHEMISTRY METHOD 08/05/2024 10:28 AM [facility] LAB Calcium 8.5 8.5 - 10.5 mg/dL LAB CHEMISTRY METHOD 08/05/2024 10:28 AM [facility] LAB AST (SGOT) 23 10 - 42 unit/L LAB CHEMISTRY METHOD 08/05/2024 10:28 AM [facility] LAB ALT (SGPT) 19 10 - 60 unit/L LAB CHEMISTRY METHOD 08/05/2024 10:28 AM [facility] LAB Alkaline Phosphatase 68 42 - 121 unit/L LAB CHEMISTRY METHOD 08/05/2024 10:28 AM [facility] LAB Total Protein 5.5(L) 6.0 - 8.0 g/dL LAB CHEMISTRY METHOD 08/05/2024 10:28 AM EDT [facility] LAB Albumin 1.8(L) 3.2 - 5.0 g/dL LAB CHEMISTRY METHOD 08/05/2024 10:28 AM EDT [facility] LAB Total Bilirubin 0.3 0.0 - 1.4 mg/dL LAB CHEMISTRY METHOD 08/05/2024 10:28 AM EDT [facility] LAB Blood Venous blood specimen / Unknown Venipuncture / Unknown 08/05/2024 7:23 AM EDT 08/05/2024 9:29 AM EDT us Priscilla Doan MD LAB BLOOD ORDERABLES Fin al Result [facility] LAB [address] [place] [address], * (ABNORMAL) Complete blood count (08/05/2024 7:23 AM EDT) WBC 5.7 4.8 - 10.8 K/mcL LAB HEMETOLOGY METHOD 08/05/2024 9:53 AM [facility] LAB RBC 3.00(L) 4.50 - 5.50 M/mcL LAB HEMETOLOGY METHOD 08/05/2024 9:53 AM [facility] LAB Hemoglobin 8.2(L) 13.5 - 17.5 g/dL LAB HEMETOLOGY METHOD 08/05/2024 9:53 AM T [facility] LAB Hematocrit 26.4(L) 42.0 - 54.0 % LAB HEMETOLOGY METHOD 08/05/2024 9:53 AM [facility] LAB MCV 88.0 79.0 - 98.0 FL LAB HEMETOLOGY METHOD 08/05/2024 9:53 AM [facility] LAB MCH 27.3 27.0 - 32.0 pcg LAB HEMETOLOGY METHOD 08/05/2024 9:53 AM EDT [facility] LAB MCHC 31.1(L) 32.0 - 37.0 g/dL LAB HEMETOLOGY METHOD 08/05/2024 9:53 AM EDT [facility] LAB RDW 15.1(H) 11.0 - 15.0 % LAB HEMETOLOGY METHOD 08/05/2024 9:53 AM EDT [facility] LAB Platelets 263 130 - 400 K/mcL LAB HEMETOLOGY METHOD 08/05/2024 9:53 AM EDT [facility] LAB MPV 9.8 7.0 - 11.0 FL LAB HEMETOLOGY METHOD 08/05/2024 9:53 AM EDT [facility] LAB NRBC 0.0 <1.0 % LAB HEMETOLOGY METHOD 08/05/2024 9:53 AM EDT [facility] LAB NRBC Absolute 0.00 <0.10 K/mcL LAB HEMETOLOGY METHOD 08/05/2024 9:53 AM EDT [facility] LAB Blood Venous blood specimen / Unknown Venipuncture / Unknown 08/05/2024 7:23 AM EDT 08/05/2024 9:28 AM EDT us Priscilla Doan MD LAB BLOOD ORDERABLES Fin al Result [facility] LAB [address] [place] [address], documented in this encounter Visit Diagnoses Diagnosis Unspecified viral hepatitis C 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 Type 2 diabetes mellitus without complications (CMS/HCC) documented in this encounter Care Teams Multi Spindle Operator Relationship Specialty Start Date End Date Priscilla Doan MD [address] [place] [id number] PCP - General Family Medicine 06/18/24 documented as of this encounter
--- OUTSIDE RECORDS SUMMARY | 2024-08-06 10:41 | XMS_ITS | Encounter Summary ---
Author Organization [facility] Address [address] [place] [address] Care Team Providers Care Certified Technician Specialist Name Role Phone Priscilla Doan MD Primary Care Provider + Encounter Details Date Type Department Care Team (Late st Contact Info) Description 07/26/2024 Lab Requisition [facility] - Main Lab 299 [facility] [place] [address] Priscilla Doan MD [address] [address] Type 2 diabetes mellitus without complications (CMS/HCC); Chronic viral hepatitis C (CMS/HCC); Chronic kidney disease, stage 3 unspecified (CMS/HCC) Social History Tobacco Use Types Packs/Day [...] Associated Diagnosis Comments BASIC METABOLIC PANEL Routine 07/26/2024 5:29 AM EST Type 2 diabetes mellitus without complications (CMS/HCC) Chronic viral hepatitis C (CMS/HCC) Chronic kidney disease, stage 3 unspecified (CMS/HCC) documented in this encounter Results * (ABNORMAL) Basic metabolic panel (07/26/2024 5:29 AM EST) Sodium 139 133 - 145 mmol/L LAB CHEMISTRY METHOD 07/26/2024 10:19 AM EST [facility] LAB Potassium 5.3 3.5 - 5.5 mmol/L LAB CHEMISTRY METHOD 07/26/2024 10:19 AM EST [facility] LAB Chloride 105 96 - 110 mmol/L LAB CHEMISTRY METHOD 07/26/2024 10:[address] [facility] LAB CO2 23 21 - 32 mmol/L LAB CHEMISTRY METHOD 07/26/2024 10:[address] [facility] LAB Anion Gap 11 3 - 11 LAB CHEMISTRY METHOD 07/26/2024 10:[address] [facility] LAB Glucose 81 70 - 100 mg/dL LAB CHEMISTRY METHOD 07/26/2024 10:[address] [facility] LAB BUN 33(H) 5 - 25 mg/dL LAB CHEMISTRY METHOD 07/26/2024 10:[address] [facility] LAB Creatinine 1.01 0.70 - 1.30 mg/dL LAB CHEMISTRY METHOD 07/26/2024 10:[address] [facility] LAB eGFR 81 >=60 mL/min/1. 73m2 LAB CHEMISTRY METHOD 07/26/2024 10:[address] [facility] LAB Comment:Calculation based on the??Chronic Kidney Disease Epidemiology Collaboration (CKD-EPI) equation refit??without adjustment for race. BUN/Creatinine Ratio 32.7 LAB CHEMISTRY METHOD 07/26/2024 10:[address] [facility] LAB Calcium 8.7 8.5 - 10.5 mg/dL LAB CHEMISTRY METHOD 07/26/2024 10:[address] [facility] LAB Blood Venous blood specimen / Unknown Venipuncture / Unknown 07/26/2024 5:29 AM EST 07/26/2024 9:06 AM EST us Priscilla Doan MD LAB BLOOD ORDERABLES Fin al Result [facility] LAB [address] [place] [address], documented in this encounter Visit Diagnoses Diagnosis Type 2 diabetes mellitus without complications (CMS/HCC) Chronic viral hepatitis C (CMS/HCC) Chronic hepatitis C without mention of hepatic coma Chronic kidney disease, stage 3 unspecified (CMS/HCC) documented in this encounter Care Teams Certified Technician Specialist Relationship Specialty Start Date End Date Priscilla Doan MD [address] [place] [address] PCP - General Family Medicine 06/18/24 documented as of this encounter
--- OUTSIDE RECORDS SUMMARY | 2024-08-06 10:41 | XMS_ITS | Encounter Summary ---
Author Organization [facility] Address [address] [place] [address] Care Team Providers Care Telecommunications Specialist Name Role Phone Priscilla Doan MD Primary Care Provider + Encounter Details Date Type Department Care Team (Late st Contact Info) Description 06/18/2024 Lab Requisition [facility] - Main Lab 299 [facility] [place] [address] Priscilla Doan MD [address] [address] Unspecified viral hepatitis C 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 [...] LAB CHEMISTRY METHOD 06/20/2024 2:17 PM EST [facility] LAB Potassium 5.1 3.5 - 5.5 mmol/L LAB CHEMISTRY METHOD 06/20/2024 2:17 PM EST [facility] LAB Chloride 104 96 - 110 mmol/L LAB CHEMISTRY METHOD 06/20/2024 2:[address] [facility] LAB CO2 23 21 - 32 mmol/L LAB CHEMISTRY METHOD 06/20/2024 2:[address] [facility] LAB Anion Gap 8 3 - 11 LAB CHEMISTRY METHOD 06/20/2024 2:[address] [facility] LAB Glucose 84 70 - 100 mg/dL LAB CHEMISTRY METHOD 06/20/2024 2:[address] [facility] LAB BUN 42(H) 5 - 25 mg/dL LAB CHEMISTRY METHOD 06/20/2024 2:[address] [facility] LAB Creatinine 1.27 0.70 - 1.30 mg/dL LAB CHEMISTRY METHOD 06/20/2024 2:[address] [facility] LAB eGFR 62 >=60 mL/min/1. 73m2 LAB CHEMISTRY METHOD 06/20/2024 2:[address] [facility] LAB Comment:Calculation based on the??Chronic Kidney Disease Epidemiology Collaboration (CKD-EPI) equation refit??without adjustment for race. BUN/Creatinine Ratio 33.1 LAB CHEMISTRY METHOD 06/20/2024 2:[address] [facility] LAB Calcium 8.7 8.5 - 10.5 mg/dL LAB CHEMISTRY METHOD 06/20/2024 2:[address] [facility] LAB AST (SGOT) 24 10 - 42 unit/L LAB CHEMISTRY METHOD 06/20/2024 2:[address] [facility] LAB ALT (SGPT) 25 10 - 60 unit/L LAB CHEMISTRY METHOD 06/20/2024 2:[address] [facility] LAB Alkaline Phosphatase 78 42 - 121 unit/L LAB CHEMISTRY METHOD 06/20/2024 2:[address] [facility] LAB Total Protein 5.8(L) 6.0 - 8.0 g/dL LAB CHEMISTRY METHOD 06/20/2024 2:[address] [facility] LAB Albumin 2.0(L) 3.2 - 5.0 g/dL LAB CHEMISTRY METHOD 06/20/2024 2:[address] [facility] LAB Total Bilirubin 0.3 0.0 - 1.4 mg/dL LAB CHEMISTRY METHOD 06/20/2024 2:[address] [facility] LAB Blood Venous blood specimen / Unknown Venipuncture / Unknown 06/20/2024 7:40 AM EST 06/20/2024 12:03 PM EST us Priscilla Doan MD LAB BLOOD ORDERABLES Fin al Result [facility] LAB [address] [place] [address], * (ABNORMAL) Complete blood count (06/20/2024 7:40 AM EST) WBC 6.2 4.8 - 10.8 K/mcL LAB HEMETOLOGY METHOD 06/20/2024 1:[address] [facility] LAB RBC 3.20(L) 4.50 - 5.50 M/mcL LAB HEMETOLOGY METHOD 06/20/2024 1:[address] [facility] LAB Hemoglobin 8.7(L) 13.5 - 17.5 g/dL LAB HEMETOLOGY METHOD 06/20/2024 1:[address] [facility] LAB Hematocrit 28.8(L) 42.0 - 54.0 % LAB HEMETOLOGY METHOD 06/20/2024 1:[address] [facility] LAB MCV 91.1 79.0 - 98.0 FL LAB HEMETOLOGY METHOD 06/20/2024 1:[address] [facility] LAB MCH 27.5 27.0 - 32.0 pcg LAB HEMETOLOGY METHOD 06/20/2024 1:[address] [facility] LAB MCHC 30.2(L) 32.0 - 37.0 g/dL LAB HEMETOLOGY METHOD 06/20/2024 1:[address] [facility] LAB RDW 16.2(H) 11.0 - 15.0 % LAB HEMETOLOGY METHOD 06/20/2024 1:18 PM EST [facility] LAB Platelets 252 130 - 400 K/mcL LAB HEMETOLOGY METHOD 06/20/2024 1:18 PM EST [facility] LAB MPV 10.1 7.0 - 11.0 FL LAB HEMETOLOGY METHOD 06/20/2024 1:18 PM EST [facility] LAB NRBC 0.0 <1.0 % LAB HEMETOLOGY METHOD 06/20/2024 1:18 PM EST [facility] LAB NRBC Absolute 0.00 <0.10 K/mcL LAB HEMETOLOGY METHOD 06/20/2024 1:18 PM EST [facility] LAB Blood Venous blood specimen / Unknown Venipuncture / Unknown 06/20/2024 7:40 AM EST 06/20/2024 12:03 PM EST us Priscilla Doan MD LAB BLOOD ORDERABLES Fin al Result [facility] LAB [address] [place] [address], documented in this encounter Visit Diagnoses Diagnosis Unspecified viral hepatitis C 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 documented in this encounter Care Teams Telecommunications Specialist Relationship Specialty Start Date End Date Priscilla Doan MD [address] [place] [phone] PCP - General Family Medicine 06/18/24 documented as of this encounter
--- OUTSIDE RECORDS SUMMARY | 2024-08-06 10:41 | XMS_ITS | Encounter Summary ---
Author Organization [facility] Address [address] [place] [address] Care Team Providers Care Pile Driver Operator Name Role Phone Priscilla Doan MD Primary Care Provider + Encounter Details Date Type Department Care Team (Late st Contact Info) Description 07/28/2024 Lab Requisition [facility] - Main Lab 299 [facility] [place] [address] Priscilla Doan MD [address] [facility] 1 [place] [address] Unspecified viral hepatitis C 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; [...] Associated Diagnosis Comments COMPLETE BLOOD COUNT Routine 2024 9:00 AM EST Unspecified viral hepatitis C 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 Type 2 diabetes mellitus without complications (CMS/HCC) COMPREHENSIVE METABOLIC PANEL Routine 2024 9:00 AM EST Unspecified viral hepatitis C 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 Type 2 diabetes mellitus without complications (CMS/HCC) documented in this encounter Results * (ABNORMAL) Comprehensive metabolic panel (2024 9:00 AM EST) Sodium 137 133 - 145 mmol/L LAB CHEMISTRY METHOD 2024 12:36 PM EST [facility] Potassium 5.6(H) 3.5 - 5.5 mmol/L LAB CHEMISTRY METHOD 2024 12:36 PM [facility] LAB Chloride 104 96 - 110 mmol/L LAB CHEMISTRY METHOD 2024 12:36 PM [facility] LAB CO2 22 21 - 32 mmol/L LAB CHEMISTRY METHOD 2024 12:36 PM [facility] LAB Anion Gap 11 3 - 11 LAB CHEMISTRY METHOD 2024 12:36 PM [facility] LAB Glucose 132(H) 70 - 100 mg/dL LAB CHEMISTRY METHOD 2024 12:36 PM [facility] LAB BUN 34(H) 5 - 25 mg/dL LAB CHEMISTRY METHOD 2024 12:36 PM [facility] LAB Creatinine 1.26 0.70 - 1.30 mg/dL LAB CHEMISTRY METHOD 2024 12:36 PM [facility] LAB eGFR 62 >=60 mL/min/1. 73m2 LAB CHEMISTRY METHOD 2024 12:36 PM [facility] LAB Comment:Calculation based on the??Chronic Kidney Disease Epidemiology Collaboration (CKD-EPI) equation refit??without adjustment for race. BUN/Creatinine Ratio 27.0 LAB CHEMISTRY METHOD 2024 12:36 PM [facility] LAB Calcium 8.7 8.5 - 10.5 mg/dL LAB CHEMISTRY METHOD 2024 12:36 PM [facility] LAB AST (SGOT) 19 10 - 42 unit/L LAB CHEMISTRY METHOD 2024 12:36 PM [facility] LAB ALT (SGPT) 18 10 - 60 unit/L LAB CHEMISTRY METHOD 2024 12:36 PM [facility] LAB Alkaline Phosphatase 66 42 - 121 unit/L LAB CHEMISTRY METHOD 2024 12:36 PM [facility] LAB Total Protein 5.9(L) 6.0 - 8.0 g/dL LAB CHEMISTRY METHOD 2024 12:36 PM [facility] LAB Albumin 2.1(L) 3.2 - 5.0 g/dL LAB CHEMISTRY METHOD 2024 12:36 PM [facility] LAB Total Bilirubin 0.2 0.0 - 1.4 mg/dL LAB CHEMISTRY METHOD 2024 12:36 PM [facility] LAB Blood Venous blood specimen / Unknown Venipuncture / Unknown 2024 9:00 AM EST 2024 11:03 AM EST us Priscilla Doan MD LAB BLOOD ORDERABLES Fin al Result [facility] LAB [address] [place] [address], * (ABNORMAL) Complete blood count (2024 9:00 AM EST) WBC 5.9 4.8 - 10.8 K/mcL LAB HEMETOLOGY METHOD 2024 11:35 AM [facility] LAB RBC 3.10(L) 4.50 - 5.50 M/[facility] LAB HEMETOLOGY METHOD 2024 11:35 AM [facility] LAB Hemoglobin 8.6(L) 13.5 - 17.5 g/dL LAB HEMETOLOGY METHOD 2024 11:35 AM [facility] LAB Hematocrit 28.3(L) 42.0 - 54.0 % LAB HEMETOLOGY METHOD 2024 11:35 AM [facility] LAB MCV 91.3 79.0 - 98.0 FL LAB HEMETOLOGY METHOD 2024 11:35 AM [facility] LAB MCH 27.7 27.0 - 32.0 pcg LAB HEMETOLOGY METHOD 2024 11:35 AM EST [facility] MCHC 30.4(L) 32.0 - 37.0 g/dL LAB HEMETOLOGY METHOD 2024 11:35 AM [facility] LAB RDW 15.4(H) 11.0 - 15.0 % LAB HEMETOLOGY METHOD 2024 11:35 AM [facility] LAB Platelets 206 130 - 400 K/mcL LAB HEMETOLOGY METHOD 2024 11:35 AM [facility] LAB MPV 9.9 7.0 - 11.0 FL LAB HEMETOLOGY METHOD 2024 11:35 AM [facility] LAB NRBC 0.0 <1.0 % LAB HEMETOLOGY METHOD 2024 11:35 AM [facility] LAB NRBC Absolute 0.00 <0.10 K/mcL LAB HEMETOLOGY METHOD 2024 11:35 AM [facility] LAB Blood Venous blood specimen / Unknown Venipuncture / Unknown 2024 9:00 AM EST 2024 11:03 AM EST Priscilla Doan MD LAB BLOOD ORDERABLES Fin al Result [facility] [address] [place] [address], documented in this encounter Visit Diagnoses Diagnosis Unspecified viral hepatitis C 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 Type 2 diabetes mellitus without complications (CMS/HCC) documented in this encounter Care Teams Pile Driver Operator Relationship Specialty Start Date End Date Priscilla Doan MD [address] [place] [id number] PCP - General Family Medicine 06/18/24 documented as of this encounter
--- OUTSIDE RECORDS SUMMARY | 2024-08-06 10:41 | XMS_ITS | Continuity of Care Document ---
Author Organization [facility] Address [address] [place] [address]- Care Team Providers Care Graphite Mill Operator Name Role Phone Elder , Priscilla Anaya Primary Care [facility]icia [id number] Date(s): 06/09/24 - 07/15/24 [facility] [address] [place] [address]- Attending Physician: Mario Estes MD Admitting Physician: Mario Estes MD Referring Physician: Lee Prieto Encounter Type: Pre-OutPatient One Time Allergies, Adverse Reactions, Alerts No Known Medication [...] Refills, Maintenance, 02/03/24 10:17:00 AM EDT, Tablet, [facility]/pharmacy #[id number], Partial fill upon patient request if [...] 10:17:00 AM EDT, Route to Pharmacy Electronically, [facility]/pharmacy #[id number], Partial fill upon patient request if [...] Refills, Maintenance, 02/03/24 10:17:00 AM EDT, Tablet, [facility]/pharmacy #[id number], Partial fill upon patient request if [...] Refills, Maintenance, 02/03/24 10:17:00 AM EDT, Tablet, [facility]/pharmacy #[id number], Partial fill upon patient request if [...] Refills, Maintenance, 02/03/24 10:17:00 AM EDT, Tablet, [facility]/pharmacy #[id number], Partial fill upon patient request if [...] 11:48:00 AM EST, Route to Pharmacy Electronically, [facility], Partial fill upon patient request [...] 0 Refills, Maintenance, 02/02/2410:17:00 AM EDT, Syrup, [facility]/pharmacy #[id number], Partial fill upon patient request if [...] Refills, Maintenance, 02/03/24 10:16:00 AM EDT, Tablet, [facility]/pharmacy #[id number], Partial fill upon patient request if [...] Team Personnel Name: Flaquita Mota RN Position: [facility] RN Member Role: Primary Care Nurse Name: Priscilla Doan MD Position: [facility] Physician - Neurology Member Role: PCP Address: [address] [place] [address] [address] [facility] [address] Telecom: Name: Ina Nowak RN Position: S RN Member Role: Primary Care Nurse Name: Lani Muñoz RN Position: [facility] RN Member Role: Primary Care Nurse Name: Sana Beltrán RN Position: S RN Member Role: Primary Care Nurse Name: Citlalli Hidalgo RN Position: S RN Member Role: Primary Care Nurse Name: Walker Avery RN Position: [facility] RN Member Role: Primary Care Nurse Name: Cb Burgess RN Position: S RN Member Role: Primary Care Nurse Name: Romina Gould RN Position: S RN Member Role: Primary Care Nurse Name: Miriam Adame RN Position: [facility] RN Member Role: Primary Care Nurse Name: Renny Johnson MD Position: [facility] Renal MD Member Role: Lifetime Consulting Physician Address: [address] [place] [address] [address] [facility] [place] [address] Telecom: Name: Vinay Zaragoza RN Position: [...] Name: ROGELIO ESTRADA Insurance Providers Guarantor name: [facility] [employer] Plan Information #: 2 Payer: [employer] Member Number: [id number] Policy Number: NA Group Number: NA Health Plan Information #: 1 Payer: MEDICARE PART B OUTPT Member Number: [id number] Policy Number: NA Group Number: NA
--- OUTSIDE RECORDS SUMMARY | 2024-08-06 10:41 | XMS_ITS | Encounter Summary ---
[facility] Organization [facility] Address [address] [place] [address] Care Team Providers Care Manager Report Name Role Phone Priscilla Doan MD Primary Care Provider + Encounter Details Date Type Department Care Team (Late st Contact Info) Description 07/01/[address] [facility] - Main Lab 299 [facility] [place] [address] Priscilla Doan MD [address] [address] Unspecified viral hepatitis C 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 [...] Associated Diagnosis Comments COMPLETE BLOOD COUNT Routine 07/04/2024 9:44 AM EST Unspecified viral hepatitis C 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 COMPREHENSIVE METABOLIC PANEL Routine 07/04/2024 9:44 AM EST Unspecified viral hepatitis C 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 documented in this encounter Results * (ABNORMAL) Comprehensive metabolic panel (07/04/2024 9:44 AM EST) Sodium 135 133 - 145 mmol/L LAB CHEMISTRY METHOD 07/04/2024 2:16 PM EST [facility] Potassium 4.4 3.5 - 5.5 mmol/L LAB CHEMISTRY METHOD 07/04/2024 2:16 PM EST [facility] Chloride 106 96 - 110 mmol/L LAB CHEMISTRY METHOD 07/04/2024 2:16 PM [facility] CO2 19(L) 21 - 32 mmol/L LAB CHEMISTRY METHOD 07/04/2024 2:16 PM [facility] Anion Gap 10 3 - 11 LAB CHEMISTRY METHOD 07/04/2024 2:16 PM [facility] Glucose 130(H) 70 - 100 mg/dL LAB CHEMISTRY METHOD 07/04/2024 2:16 PM [facility] BUN 33(H) 5 - 25 mg/dL LAB CHEMISTRY METHOD 07/04/2024 2:16 PM [facility] Creatinine 1.52(H) 0.70 - 1.30 mg/dL LAB CHEMISTRY METHOD 07/04/2024 2:16 PM [facility] eGFR 50(L) >=60 mL/min/1. 73m2 LAB CHEMISTRY METHOD 07/04/2024 2:16 PM [facility] Comment:Calculation based on the??Chronic Kidney Disease Epidemiology Collaboration (CKD-EPI) equation refit??without adjustment for race. BUN/Creatinine Ratio 21.7 LAB CHEMISTRY METHOD 07/04/2024 2:16 PM [facility] Calcium 8.8 8.5 - 10.5 mg/dL LAB CHEMISTRY METHOD 07/04/2024 2:16 PM [facility] AST (SGOT) 26 10 - 42 unit/L LAB CHEMISTRY METHOD 07/04/2024 2:16 PM [facility] ALT (SGPT) 30 10 - 60 unit/L LAB CHEMISTRY METHOD 07/04/2024 2:16 PM [facility] Alkaline Phosphatase 78 42 - 121 unit/L LAB CHEMISTRY METHOD 07/04/2024 2:16 PM [facility] Total Protein 6.1 6.0 - 8.0 g/dL LAB CHEMISTRY METHOD 07/04/2024 2:16 PM [facility] Albumin 1.9(L) 3.2 - 5.0 g/dL LAB CHEMISTRY METHOD 07/04/2024 2:16 PM EST [facility] Total Bilirubin 0.3 0.0 - 1.4 mg/dL LAB CHEMISTRY METHOD 07/04/2024 2:16 PM [facility] Blood Venous blood specimen / Unknown Venipuncture / Unknown 07/04/2024 9:44 AM EST 07/04/2024 12:25 PM EST us Priscilla Doan MD LAB BLOOD ORDERABLES Fin al Result [facility] [address] [place] [address], * (ABNORMAL) Complete blood count (07/04/2024 9:44 AM EST) WBC 11.0(H) 4.8 - 10.8 K/mcL LAB HEMETOLOGY METHOD 07/04/2024 1:39 PM [facility] RBC 3.40(L) 4.50 - 5.50 M/mcL LAB HEMETOLOGY METHOD 07/04/2024 1:39 PM [facility] Hemoglobin 9.2(L) 13.5 - 17.5 g/dL LAB HEMETOLOGY METHOD 07/04/2024 1:39 PM [facility] Hematocrit 30.3(L) 42.0 - 54.0 % LAB HEMETOLOGY METHOD 07/04/2024 1:39 PM [facility] MCV 89.9 79.0 - 98.0 FL LAB HEMETOLOGY METHOD 07/04/2024 1:39 PM [facility] MCH 27.3 27.0 - 32.0 pcg LAB HEMETOLOGY METHOD 07/04/2024 1:39 PM [facility] MCHC 30.4(L) 32.0 - 37.0 g/dL LAB HEMETOLOGY METHOD 07/04/2024 1:39 PM EST [facility] RDW 16.3(H) 11.0 - 15.0 % LAB HEMETOLOGY METHOD 07/04/2024 1:39 PM EST [facility] Platelets 279 130 - 400 K/mcL LAB HEMETOLOGY METHOD 07/04/2024 1:39 PM EST [facility] MPV 10.3 7.0 - 11.0 FL LAB HEMETOLOGY METHOD 07/04/2024 1:39 PM EST [facility] NRBC 0.0 <1.0 % LAB HEMETOLOGY METHOD 07/04/2024 1:39 PM EST [facility] NRBC Absolute 0.00 <0.10 K/mcL LAB HEMETOLOGY METHOD 07/04/2024 1:39 PM [facility] Blood Venous blood specimen / Unknown Venipuncture / Unknown 07/04/2024 9:44 AM EST 07/04/2024 12:25 PM EST us Priscilla Doan MD LAB BLOOD ORDERABLES Fin al Result [facility] [address] [place] [address], documented in this encounter Visit Diagnoses Diagnosis Unspecified viral hepatitis C 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 documented in this encounter Care Teams Manager Report Relationship Specialty Start Date End Date Priscilla Doan MD [address] [place] [id number] PCP - General Family Medicine 06/18/24 documented as of this encounter
--- OUTSIDE RECORDS SUMMARY | 2024-08-06 10:41 | XMS_ITS | Encounter Summary ---
Author Organization [facility] Address [address] [place] [address] Care Team Providers Care Custom Bookbinder Name Role Phone Priscilla Doan MD Primary Care Provider + Encounter Details Date Type Department Care Team (Late st Contact Info) Description 08/03/[address] [facility] Lab 299 [facility] [place] [address] Priscilla Doan MD [address] [address] Chronic kidney disease, unspecified Social History Tobacco Use Types Packs/Day [...] Associated Diagnosis Comments BASIC METABOLIC PANEL Routine 08/03/2024 8:00 AM EDT Chronic kidney disease, unspecified documented in this encounter Results * (ABNORMAL) Basic metabolic panel (08/03/2024 8:00 AM EDT) Sodium 134 133 - 145 mmol/L LAB CHEMISTRY METHOD 08/03/2024 12:54 PM EDT [facility] Potassium 5.5 3.5 - 5.5 mmol/L LAB CHEMISTRY METHOD 08/03/2024 12:54 PM T [facility] Chloride 102 96 - 110 mmol/L LAB CHEMISTRY METHOD 08/03/2024 12:54 PM T [facility] CO2 24 21 - 32 mmol/L LAB CHEMISTRY METHOD 08/03/2024 12:54 PM EDT [facility] Anion Gap 8 3 - 11 LAB CHEMISTRY METHOD 08/03/2024 12:54 PM EDT [facility] Glucose 86 70 - 100 mg/dL LAB CHEMISTRY METHOD 08/03/2024 12:54 PM EDT [facility] BUN 40(H) 5 - 25 mg/dL LAB CHEMISTRY METHOD 08/03/2024 12:54 PM EDT [facility] Creatinine 1.36(H) 0.70 - 1.30 mg/dL LAB CHEMISTRY METHOD 08/03/2024 12:54 PM EDT [facility] eGFR 56(L) >=60 mL/min/1. 73m2 LAB CHEMISTRY METHOD 08/03/2024 12:54 PM EDT [facility] Comment:Calculation based on the??Chronic Kidney Disease Epidemiology Collaboration (CKD-EPI) equation refit??without adjustment for race. BUN/Creatinine Ratio 29.4 LAB CHEMISTRY METHOD 08/03/2024 12:54 PM EDT [facility] Calcium 8.8 8.5 - 10.5 mg/dL LAB CHEMISTRY METHOD 08/03/2024 12:54 PM [facility] Blood Venous blood specimen / Unknown Venipuncture / Unknown 08/03/2024 8:00 AM EDT 08/03/2024 10:45 AM EDT us Priscilla Doan MD LAB BLOOD ORDERABLES Fin al Result [facility] [address] [place] [address], documented in this encounter Visit Diagnoses Diagnosis Chronic kidney disease, unspecified documented in this encounter Care Teams Custom Bookbinder Relationship Specialty Start Date End Date Priscilla Doan MD [address] [place] [id number] PCP - General Family Medicine 06/18/24 documented as of this encounter
--- OUTSIDE RECORDS SUMMARY | 2024-08-06 10:41 | XMS_ITS | Encounter Summary ---
Author Organization [facility] Address [address] [place] [address] Care Team Providers Care Key Person Name Role Phone Elder, Priscilla Childs MD Primary Care Provider + Encounter Details Date Type Department Care Team (Late st Contact Info) Description 06/30/2024 Lab Requisition [facility] - Main Lab 299 [facility] [place] [address] Noman Pastrana PA [address] [place] [phone] Unspecified viral hepatitis C 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; Acute embolism and thrombosis of unspecified deep veins of right lower extremity (CMS/HCC); Unspecified cirrhosis of liver (CMS/HCC) Social History [...] Associated Diagnosis Comments COMPLETE BLOOD COUNT Routine 06/30/2024 6:59 AM EST Unspecified viral hepatitis C 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 Acute embolism and thrombosis of unspecified deep veins of right lower extremity (CMS/HCC) Unspecified cirrhosis of liver (CMS/HCC) COMPREHENSIVE METABOLIC PANEL Routine 06/30/2024 6:59 AM EST Unspecified viral hepatitis C 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 Acute embolism and thrombosis of unspecified deep veins of right lower extremity (CMS/HCC) Unspecified cirrhosis of liver (CMS/HCC) documented in this encounter Results * (ABNORMAL) Comprehensive metabolic panel (06/30/2024 6:59 AM EST) Sodium 140 133 - 145 mmol/L LAB CHEMISTRY METHOD 06/30/2024 9:32 AM [facility] Potassium 3.9 3.5 - 5.5 mmol/L LAB CHEMISTRY METHOD 06/30/2024 9:32 AM [facility] Chloride 109 96 - 110 mmol/L LAB CHEMISTRY METHOD 06/30/2024 9:32 AM [facility] CO2 24 21 - 32 mmol/L LAB CHEMISTRY METHOD 06/30/2024 9:32 AM [facility] Anion Gap 7 3 - 11 LAB CHEMISTRY METHOD 06/30/2024 9:32 AM [facility] Glucose 144(H) 70 - 100 mg/dL LAB CHEMISTRY METHOD 06/30/2024 9:32 AM [facility] BUN 39(H) 5 - 25 mg/dL LAB CHEMISTRY METHOD 06/30/2024 9:32 AM [facility] Creatinine 1.37(H) 0.70 - 1.30 mg/dL LAB CHEMISTRY METHOD 06/30/2024 9:32 AM [facility] eGFR 56(L) >=60 mL/min/1. 73m2 LAB CHEMISTRY METHOD 06/30/2024 9:32 AM [facility] Comment:Calculation based on the??Chronic Kidney Disease Epidemiology Collaboration (CKD-EPI) equation refit??without adjustment for race. BUN/Creatinine Ratio 28.5 LAB CHEMISTRY METHOD 06/30/2024 9:32 AM [facility] Calcium 8.1(L) 8.5 - 10.5 mg/dL LAB CHEMISTRY METHOD 06/30/2024 9:32 AM [facility] AST (SGOT) 53(H) 10 - 42 unit/L LAB CHEMISTRY METHOD 06/30/2024 9:32 AM [facility] Comment:Results verified by repeat testing ALT (SGPT) 53 10 - 60 unit/L LAB CHEMISTRY METHOD 06/30/2024 9:32 AM [facility] Comment:Results verified by repeat testing Alkaline Phosphatase 95 42 - 121 unit/L LAB CHEMISTRY METHOD 06/30/2024 9:32 AM [facility] Total Protein 5.2(L) 6.0 - 8.0 g/dL LAB CHEMISTRY METHOD 06/30/2024 9:32 AM [facility] Albumin 1.8(L) 3.2 - 5.0 g/dL LAB CHEMISTRY METHOD 06/30/2024 9:32 AM [facility] Total Bilirubin 0.2 0.0 - 1.4 mg/dL LAB CHEMISTRY METHOD 06/30/2024 9:32 AM [facility] Blood Venous blood specimen / Unknown Venipuncture / Unknown 06/30/2024 6:59 AM EST 06/30/2024 8:23 AM EST us Noman CALDERON LAB BLOOD ORDERABLES Final Re sult [facility] [address] [place] [address], * (ABNORMAL) Complete blood count (06/30/2024 6:59 AM EST) WBC 5.4 4.8 - 10.8 K/mcL LAB HEMETOLOGY METHOD 06/30/2024 8:54 AM [facility] RBC 3.20(L) 4.50 - 5.50 M/[facility] LAB HEMETOLOGY METHOD 06/30/2024 8:54 AM [facility] Hemoglobin 8.3(L) 13.5 - 17.5 g/dL LAB HEMETOLOGY METHOD 06/30/2024 8:54 AM [facility] Hematocrit 27.6(L) 42.0 - 54.0 % LAB HEMETOLOGY METHOD 06/30/2024 8:54 AM [facility] MCV 87.3 79.0 - 98.0 FL LAB HEMETOLOGY METHOD 06/30/2024 8:54 AM EST [facility] MCH 26.3(L) 27.0 - 32.0 pcg LAB HEMETOLOGY METHOD 06/30/2024 8:54 AM [facility] MCHC 30.1(L) 32.0 - 37.0 g/dL LAB HEMETOLOGY METHOD 06/30/2024 8:54 AM [facility] RDW 16.0(H) 11.0 - 15.0 % LAB HEMETOLOGY METHOD 06/30/2024 8:54 AM [facility] Platelets 125(L) 130 - 400 K/mcL LAB HEMETOLOGY METHOD 06/30/2024 8:54 AM [facility] MPV 11.6(H) 7.0 - 11.0 FL LAB HEMETOLOGY METHOD 06/30/2024 8:54 AM [facility] NRBC 0.0 <1.0 % LAB HEMETOLOGY METHOD 06/30/2024 8:54 AM [facility] NRBC Absolute 0.00 <0.10 K/mcL LAB HEMETOLOGY METHOD 06/30/2024 8:54 AM [facility] Blood Venous blood specimen / Unknown Venipuncture / Unknown 06/30/2024 6:59 AM EST 06/30/2024 8:23 AM EST us Noman CALDERON LAB BLOOD ORDERABLES Final Re sult [facility] [address] [place] [address], documented in this encounter Visit Diagnoses Diagnosis Unspecified viral hepatitis C 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 Acute embolism and thrombosis of unspecified deep veins of right lower extremity (CMS/HCC) Unspecified cirrhosis of liver (CMS/HCC) documented in this encounter Care Teams Key Person Relationship Specialty Start Date End Date Priscilla Doan MD [address] [address] PCP - General Family Medicine 06/18/24 documented as of this encounter
--- OUTSIDE RECORDS SUMMARY | 2024-08-06 10:41 | XMS_ITS | Encounter Summary ---
Author Organization [facility] Address [address] [place] [address] Care Team Providers Care Paid Search Specialist Name Role Phone Priscilla Doan MD Primary Care Provider + Encounter Details Date Type Department Care Team (Late st Contact Info) Description 06/23/2024 Lab Requisition [facility] - Main Lab 299 [facility] [place] [address] Priscilla Doan MD [address] [address] Unspecified cirrhosis of liver (CMS/HCC) Social History [...] LAB CHEMISTRY METHOD 06/23/2024 9:33 AM EST [facility] Blood Venous blood specimen / Unknown Venipuncture / Unknown 06/23/2024 7:56 AM EST 06/23/2024 9:05 AM EST us Priscilla Doan MD LAB BLOOD ORDERABLES Fin al Result [facility] [address] [place] [address], documented in this encounter Visit Diagnoses Diagnosis Unspecified cirrhosis of liver (CMS/HCC) documented in this encounter Care Teams Paid Search Specialist Relationship Specialty Start Date End Date Priscilla Doan MD [address] [address] PCP - General Family Medicine 06/18/24 documented as of this encounter
--- OUTSIDE RECORDS SUMMARY | 2024-08-06 10:41 | XMS_ITS | Encounter Summary ---
Author Organization [facility] Address [address] [place] [address] Care Team Providers Care Supervisor Filling And Packing Name Role Phone Priscilla Doan MD Primary Care Provider + Encounter Details Date Type Department Care Team (Late st Contact Info) Description 07/22/2024 Lab Requisition [facility] - Main Lab 299 [facility] [address] Priscilla Doan MD 8[address] [facility] 1 [place], [place] [id number] Hyperkalemia; Unspecified cirrhosis of liver (CMS/HCC); Unspecified viral hepatitis C 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; Type 2 diabetes mellitus without complications (CMS/HCC); Other cirrhosis of liver (CMS/HCC) Social History Tobacco [...] Associated Diagnosis Comments COMPLETE BLOOD COUNT Routine 07/22/2024 5:21 AM EST Hyperkalemia Unspecified cirrhosis of liver (CMS/HCC) Unspecified viral hepatitis C 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 Type 2 diabetes mellitus without complications (CMS/HCC) Other cirrhosis of liver (CMS/HCC) COMPREHENSIVE METABOLIC PANEL Routine 07/22/2024 5:21 AM EST Hyperkalemia Unspecified cirrhosis of liver (CMS/HCC) Unspecified viral hepatitis C 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 Type 2 diabetes mellitus without complications (CMS/HCC) Other cirrhosis of liver (CMS/HCC) documented in this encounter Results * (ABNORMAL) Comprehensive metabolic panel (07/22/2024 5:21 AM EST) Sodium 138 133 - 145 mmol/L LAB CHEMISTRY METHOD 07/22/2024 11:57 AM [facility] Potassium 4.4 3.5 - 5.5 mmol/L LAB CHEMISTRY METHOD 07/22/2024 11:57 AM [facility] Chloride 106 96 - 110 mmol/L LAB CHEMISTRY METHOD 07/22/2024 11:57 AM [facility] CO2 23 21 - 32 mmol/L LAB CHEMISTRY METHOD 07/22/2024 11:57 AM [facility] Anion Gap 9 3 - 11 LAB CHEMISTRY METHOD 07/22/2024 11:57 AM [facility] Glucose 122(H) 70 - 100 mg/dL LAB CHEMISTRY METHOD 07/22/2024 11:57 AM [facility] BUN 28(H) 5 - 25 mg/dL LAB CHEMISTRY METHOD 07/22/2024 11:57 AM [facility] Creatinine 1.06 0.70 - 1.30 mg/dL LAB CHEMISTRY METHOD 07/22/2024 11:57 AM [facility] eGFR 76 >=60 mL/min/1. 73m2 LAB CHEMISTRY METHOD 07/22/2024 11:57 AM [facility] Comment:Calculation based on the??Chronic Kidney Disease Epidemiology Collaboration (CKD-EPI) equation refit??without adjustment for race. BUN/Creatinine Ratio 26.4 LAB CHEMISTRY METHOD 07/22/2024 11:57 AM [facility] Calcium 8.4(L) 8.5 - 10.5 mg/dL LAB CHEMISTRY METHOD 07/22/2024 11:57 AM [facility] AST (SGOT) 26 10 - 42 unit/L LAB CHEMISTRY METHOD 07/22/2024 11:57 AM [facility] ALT (SGPT) 22 10 - 60 unit/L LAB CHEMISTRY METHOD 07/22/2024 11:57 AM [facility] Alkaline Phosphatase 81 42 - 121 unit/L LAB CHEMISTRY METHOD 07/22/2024 11:57 AM [facility] Total Protein 5.7(L) 6.0 - 8.0 g/dL LAB CHEMISTRY METHOD 07/22/2024 11:57 AM [facility] Albumin 2.6(L) 3.2 - 5.0 g/dL LAB CHEMISTRY METHOD 07/22/2024 11:57 AM [facility] Total Bilirubin 0.2 0.0 - 1.4 mg/dL LAB CHEMISTRY METHOD 07/22/2024 11:57 AM [facility] Blood Venous blood specimen / Unknown Venipuncture / Unknown 07/22/2024 5:21 AM EST 07/22/2024 10:32 AM EST Priscilla Doan MD LAB BLOOD ORDERABLES Fin al Result [facility] [address] [place] [address], * (ABNORMAL) Complete blood count (07/22/2024 5:21 AM EST) WBC 5.8 4.8 - 10.8 K/mcL LAB HEMETOLOGY METHOD 07/22/2024 10:44 AM [facility] RBC 3.20(L) 4.50 - 5.50 M/mcL LAB HEMETOLOGY METHOD 07/22/2024 10:44 AM [facility] Hemoglobin 8.8(L) 13.5 - 17.5 g/dL LAB HEMETOLOGY METHOD 07/22/2024 10:44 AM [facility] Hematocrit 27.7(L) 42.0 - 54.0 % LAB HEMETOLOGY METHOD 07/22/2024 10:44 AM [facility] MCV 87.9 79.0 - 98.0 FL LAB HEMETOLOGY METHOD 07/22/2024 10:44 AM EST [facility] MCH 27.9 27.0 - 32.0 pcg LAB HEMETOLOGY METHOD 07/22/2024 10:44 AM [facility] MCHC 31.8(L) 32.0 - 37.0 g/dL LAB HEMETOLOGY METHOD 07/22/2024 10:44 AM EST [facility] RDW 16.1(H) 11.0 - 15.0 % LAB HEMETOLOGY METHOD 07/22/2024 10:44 AM EST [facility] Platelets 192 130 - 400 K/mcL LAB HEMETOLOGY METHOD 07/22/2024 10:44 AM [facility] MPV 10.5 7.0 - 11.0 FL LAB HEMETOLOGY METHOD 07/22/2024 10:44 AM EST [facility] NRBC 0.0 <1.0 % LAB HEMETOLOGY METHOD 07/22/2024 10:44 AM [facility] NRBC Absolute 0.00 <0.10 K/mcL LAB HEMETOLOGY METHOD 07/22/2024 10:44 AM [facility] Blood Venous blood specimen / Unknown Venipuncture / Unknown 07/22/2024 5:21 AM EST 07/22/2024 10:32 AM EST us Priscilla Doan MD LAB BLOOD ORDERABLES Fin al Result [facility] [address] [place] [address], documented in this encounter Visit Diagnoses Diagnosis Hyperkalemia Hyperpotassemia Unspecified cirrhosis of liver (CMS/HCC) Unspecified viral hepatitis 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
--- OUTSIDE RECORDS SUMMARY | 2024-08-06 10:41 | XMS_ITS | Encounter Summary ---
Author Organization [facility] Address [address] [place] [address] Care Team Providers Care A&P Mechanic Name Role Phone Priscilla Doan MD Primary Care Provider + Encounter Details Date Type Department Care Team (Late st Contact Info) Description 07/30/2024 Lab Requisition [facility] - Main Lab [address] [facility] [place] [address] Priscilla Doan MD [address] [phone] Essential (primary) hypertension; Type 2 diabetes mellitus [...] Associated Diagnosis Comments COMPLETE BLOOD COUNT Routine 08/01/2024 9:23 AM EDT Essential (primary) hypertension Type 2 diabetes mellitus without complications (CMS/HCC) HEMOGLOBIN A1C Routine 08/01/2024 9:23 AM EDT Essential (primary) hypertension Type 2 diabetes mellitus without complications (CMS/HCC) COMPREHENSIVE METABOLIC PANEL Routine 08/01/2024 9:23 AM EDT Essential (primary) hypertension Type 2 diabetes mellitus without complications (CMS/HCC) documented in this encounter Results * Hemoglobin A1c (08/01/2024 9:23 AM EDT) Hemoglobin A1C 5.8 <6.5 % LAB CHEMISTRY METHOD 08/01/2024 1:50 PM EDT [facility] Mean Bld Glu Estim. 120 mg/dL LAB CHEMISTRY METHOD 08/01/2024 1:50 PM [facility] Blood Venous blood specimen / Unknown Venipuncture / Unknown 08/01/2024 9:23 AM EDT 08/01/2024 10:44 AM EDT us Priscilla Doan MD LAB BLOOD ORDERABLES Fin al Result [facility] [address] [place] [address], [place] [phone] * (ABNORMAL) Comprehensive metabolic panel (08/01/2024 9:23 AM EDT) Sodium 136 133 - 145 mmol/L LAB CHEMISTRY METHOD 08/01/2024 12:17 PM [facility] Potassium 5.7(H) 3.5 - 5.5 mmol/L LAB CHEMISTRY METHOD 08/01/2024 12:17 PM [facility] Chloride 103 96 - 110 mmol/L LAB CHEMISTRY METHOD 08/01/2024 12:17 PM [facility] CO2 23 21 - 32 mmol/L LAB CHEMISTRY METHOD 08/01/2024 12:17 PM [facility] Anion Gap 10 3 - 11 LAB CHEMISTRY METHOD 08/01/2024 12:17 PM [facility] Glucose 109(H) 70 - 100 mg/dL LAB CHEMISTRY METHOD 08/01/2024 12:17 PM [facility] BUN 35(H) 5 - 25 mg/dL LAB CHEMISTRY METHOD 08/01/2024 12:17 PM [facility] Creatinine 1.30 0.70 - 1.30 mg/dL LAB CHEMISTRY METHOD 08/01/2024 12:17 PM [facility] eGFR 59(L) >=60 mL/min/1. 73m2 LAB CHEMISTRY METHOD 08/01/2024 12:17 PM [facility] Comment:Calculation based on the??Chronic Kidney Disease Epidemiology Collaboration (CKD-EPI) equation refit??without adjustment for race. BUN/Creatinine Ratio 26.9 LAB CHEMISTRY METHOD 08/01/2024 12:17 PM [facility] Calcium 8.6 8.5 - 10.5 mg/dL LAB CHEMISTRY METHOD 08/01/2024 12:17 PM [facility] AST (SGOT) 19 10 - 42 unit/L LAB CHEMISTRY METHOD 08/01/2024 12:17 PM [facility] ALT (SGPT) 16 10 - 60 unit/L LAB CHEMISTRY METHOD 08/01/2024 12:17 PM [facility] Alkaline Phosphatase 62 42 - 121 unit/L LAB CHEMISTRY METHOD 08/01/2024 12:17 PM [facility] Total Protein 6.1 6.0 - 8.0 g/dL LAB CHEMISTRY METHOD 08/01/2024 12:17 PM [facility] Albumin 2.1(L) 3.2 - 5.0 g/dL LAB CHEMISTRY METHOD 08/01/2024 12:17 PM [facility] Total Bilirubin 0.2 0.0 - 1.4 mg/dL LAB CHEMISTRY METHOD 08/01/2024 12:17 PM [facility] Blood Venous blood specimen / Unknown Venipuncture / Unknown 08/01/2024 9:23 AM EDT 08/01/2024 10:44 AM EDT us Priscilla Doan MD LAB BLOOD ORDERABLES Fin al Result [facility] [address] [place] [address], * (ABNORMAL) Complete blood count (08/01/2024 9:23 AM EDT) [facility] WBC 7.2 4.8 - 10.8 K/mcL LAB HEMETOLOGY METHOD 08/01/2024 11:39 AM [facility] RBC 3.20(L) 4.50 - 5.50 M/mcL LAB HEMETOLOGY METHOD 08/01/2024 11:39 AM [facility] Hemoglobin 8.8(L) 13.5 - 17.5 g/dL LAB HEMETOLOGY METHOD 08/01/2024 11:39 AM [facility] Hematocrit 29.0(L) 42.0 - 54.0 % LAB HEMETOLOGY METHOD 08/01/2024 11:39 AM [facility] MCV 90.6 79.0 - 98.0 FL LAB HEMETOLOGY METHOD 08/01/2024 11:39 AM [facility] MCH 27.5 27.0 - 32.0 pcg LAB HEMETOLOGY METHOD 08/01/2024 11:39 AM [facility] MCHC 30.3(L) 32.0 - 37.0 g/dL LAB HEMETOLOGY METHOD 08/01/2024 11:39 AM [facility] RDW 15.4(H) 11.0 - 15.0 % LAB HEMETOLOGY METHOD 08/01/2024 11:39 AM [facility] Platelets 263 130 - 400 K/mcL LAB HEMETOLOGY METHOD 08/01/2024 11:39 AM [facility] MPV 10.0 7.0 - 11.0 FL LAB HEMETOLOGY METHOD 08/01/2024 11:39 AM [facility] NRBC 0.0 <1.0 % LAB HEMETOLOGY METHOD 08/01/2024 11:39 AM [facility] NRBC Absolute 0.00 <0.10 K/mcL LAB HEMETOLOGY METHOD 08/01/2024 11:39 AM EDT [facility] Blood Venous blood specimen / Unknown Venipuncture / Unknown 08/01/2024 9:23 AM EDT 08/01/2024 10:44 AM EDT us Priscilla Doan MD LAB BLOOD ORDERABLES Fin al Result [facility] [address] [place] [address], documented in this encounter Visit Diagnoses Diagnosis Essential (primary) hypertension Unspecified essential hypertension Type 2 diabetes mellitus without complications (CMS/HCC) documented in this encounter Care Teams A&P Mechanic Relationship Specialty Start Date End Date Priscilla Doan MD [address] [place] [id number] PCP - General Family Medicine 06/18/24 documented as of this encounter
--- OUTSIDE RECORDS SUMMARY | 2024-08-06 10:41 | XMS_ITS | Continuity of Care Document ---
Author Organization [facility] Address [address] [place] [id number]- Care Team Providers Care Checker Dump Grounds Name Role Phone Elder , Priscilla Anaya Primary Care Physicia n Encounter [facility] Date(s): 07/15/24 - 07/16/[address] [address]- Encounter Diagnosis Hyperkalemia(Final) - 07/16/24 Discharge Disposition: A-Transfer SNF Attending Physician: Vivek Chakraborty MD Admitting Physician: Vivek Chakraborty MD Referring Physician: Not on Staff, Referring [...] Refills, Maintenance, 02/03/24 10:17:00 AM EDT, Tablet, [facility]/pharmacy #[id number], Partial fill upon patient request [...] 10:17:00 AM EDT, Route to Pharmacy Electronically, [facility]/pharmacy #[id number], Partial fill upon patient request [...] Refills, Maintenance, 02/03/24 10:17:00 AM EDT, Tablet, [facility]/pharmacy #[id number], Partial fill upon patient request [...] Refills, Maintenance, 02/03/24 10:17:00 AM EDT, Tablet, [facility]/pharmacy #[id number], Partial fill upon patient request [...] 11:48:00 AM EST, Route to Pharmacy Electronically, [facility], Partial fill upon patient request [...] 0 Refills, Maintenance, 02/02/2410:17:00 AM EDT, Syrup, [facility]/pharmacy #[id number], Partial fill upon patient request [...] Refills, Maintenance, 02/03/24 10:16:00 AM EDT, Tablet, [facility]/pharmacy #[id number], Partial fill upon patient request [...] Refills, Maintenance, 02/03/24 10:17:00 AM EDT, Tablet, [facility]/pharmacy #[id number], Partial fill upon patient request [...] 10:18:00 AM EDT, Route to Pharmacy Electronically, [facility]/pharmacy #[id number], Partial fill upon patient request [...] recent to oldest [Reference Range]: 1 2 3 Oxygen Saturation [94-100 %] 98 % (07/16/24 12:44 AM) 100 % (07/16/24 12:01 AM) 93 % *L* (07/15/24 9:48 PM) Pulse Rate [55-90 bpm] 103 bpm *H* (07/16/24 12:44 AM) 101 bpm *H* (07/16/24 12:01 AM) 106 bpm *H* (07/15/24 9:48 PM) Blood Pressure [90-138/55-84 mm Hg] 125/82mm Hg (07/16/24 12:44 AM) 95/70mm Hg (07/16/24 12:01 AM) 107/73mm Hg (07/15/24 9:48 PM) Respiratory Rate [16-30 br/min] 13 br/min *L* (07/16/24 12:44 AM) 16 br/min (07/16/24 12:01 AM) 16 br/min (07/15/24 9:48 PM) Temperature [96.8-100.4 DegF] 97.8 DegF (07/15/24 8:44 PM) 98.1 DegF (07/15/24 3:37 PM) Liters per Minute 2 L/min (07/16/24 12:44 AM) 2 L/min (07/16/24 12:01 AM) Mode of Delivery (Oxygen) Nasal cannula (07/16/24 12:44 AM) Nasal cannula (07/16/24 12:01 AM) Room air (07/15/24 9:48 PM) Temperature Route Oral (07/15/24 8:44 PM) Oral (07/15/24 3:37 PM) EKG study * Event Display: EKG Authored Date: [id number] * Event Display: ECG 12-Lead Authored Date: Please click on pdf link to open report * Event Display: ECG 12-Lead Authored Date: Ventricular Rate: 103 BPM Atrial Rate: 103 BPM P-R Interval: 134 ms QRS Duration: 82 ms Q-T Interval: 340 ms QTC Calculation(Bazett): 445 ms P Brandon: 46 degrees R Brandon: 0 degrees T Brandon: 38 degrees Sinus tachycardia Low voltage QRS complexes in limb leads Possible Anterolateral infarct , age undetermined Abnormal ECG When compared with ECG of 02-Jun-2024 11:21, Borderline criteria for Anterior infarct are now Present Borderline criteria for Anterolateral infarct are now Present Confirmed by Noman Mora ([id number]) on 07/15/2024 4:24:29 PM [place]: Noman Mora Note * Shana Landers DO: PERFORM Event Display: Patient Education Leaflets Authored Date: [id number] Hyperkalemia ?? [id number] Hyperkalemia Hyperkalemia is too much potassium in the blood. This most often occurs in people who take??certainmedicines or who have kidney disease. This condition often has no symptoms until levels of potassium become dangerously high. If symptomsdo occur, they include muscle weakness and changes in the heartbeat. A blood test is done to diagnose the problem. An ECG (electrocardiogram) may also be done to quickly look at the way the heart is b eating. If hyperkalemia is caused by a medicine, the healthcare provider may lower the dose or switch to a different medicine. A low-potassium diet may also be prescribed.??You may be prescribed a medicine that decreases potassium until your levels are normal. Home care ??? Be sure your healthcare provider knows about all of the medicines you take. This includes prescription and rzwt-jwy-cpdrzly medicines, supplements, herbs, and illegal drugs.??Follow your healthcare provider's advice about making changes to your medicines. ??? If a low-potassium diet has been prescribed, follow this closely. If you need help, ask to be referred to a dietitian for advice on how to follow this diet. Take any medicines prescribed. ?? Follow-up care Follow up with your healthcare provider. You may need a repeat blood test within the next??7 days. Schedule this as advised. ?? When to get medical advice Call your healthcare provider right away??if any of the following occur: ??? Nausea, vomiting, or diarrhea ??? Urinating only in small amounts or not urinating ??? Symptoms don't go away or get worse ?? Call 911 Call 911??if any of the following occur: ??? Fast or irregular heartbeat ??? Fainting, dizziness, or lightheadedness ??? Severe shortness of breath ??? Chest, arm, shoulder, neck or upper back pain ??? Trouble controlling your muscles or muscle weakness ?? Last Reviewed Date: 2022 ?? [id number] [employer] All rights reserved. This information is not intended as a substitute for professional medical care. Always follow your healthcare professional's instructions. ?? Patient Care team information Care Team Personnel Name: Flaquita Mota RN Position: [facility] RN Member Role: Primary Care Nurse Name: Priscilla Doan MD Position: [facility] Physician - Neurology Member Role: PCP Address: [address] [place] [address] [address] [facility] [place] [address]- Telecom: Name: Ina Noawk RN Position: S RN Member Role: Primary [...] Care Nurse Name: Renny Johnson MD Position: [facility] Renal MD Member Role: [employer] Consulting Physician Address: [address] [facility] [address] [facility] [address] Telecom: Name: Vinay Zaragoza RN Position: S [...] Name: ROGELIO ESTRADA Insurance Providers Guarantor name: [facility] [employer] [facility] Information #: 1 Payer: MEDICARE PART B OUTPT Member Number: [id number] Policy Number: NA Group Number: NA Health Plan Information #: 2 Payer: [facility] Member Number: [id number] Policy Number: NA Group Number: NA
[2024-08-06 10:55] LABS: MANUAL DIFF FLAG NO
[2024-08-06 10:57] LABS: Basophils Percent Auto 0.5 % (0-2); Eosinophils Absolute Auto 0.1 X10*3/uL (0.0-0.4); Eosinophils Percent Auto 2.1 % (0-4); Hematocrit 26.7 % (42.0-52.0); Hemoglobin 8.6 g/dl (14.0-18.0); Imm Gran Abs Auto 0.05 X10*3/uL (0.00-0.03); Imm Gran Pct Auto 0.8 % (0.0-0.4); Lymphocytes Absolute Auto 1.3 X10*3/uL (1.2-4.9); Mean Corpuscular HGB Conc 32.2 g/dl (31.0-36.0); Mean Corpuscular Hemoglobin 27.4 pg (27.0-33.0); Mean Platelet Volume 9.1 fL (9.4-12.4); Monocytes Absolute Auto 0.6 X10*3/uL (0.1-1.2); Monocytes Percent Auto 8.8 % (2-11); Neutrophils Absolute Auto 4.2 x10*3/uL (2.0-8.3); Neutrophils Percent Auto 67.8 % (45-73); Platelet Count 264 X10*3/uL (160-400); Red Blood Count 3.14 X10*6/uL (4.60-5.80); Red Cell Distribution Width 15.2 % (11.0-16.0); White Blood Count 6.3 X10*3/uL (4.8-10.8)
[2024-08-06 11:01] LABS: Ammonia 27 umol/L (13-55)
[2024-08-06 11:02] LABS: INTERNATIONAL NORM RATIO 1.4 (0.9-1.1); Prothrombin Time 16.9 SEC (10.9-12.4)
[2024-08-06 11:15] LABS: B Type Natriuretic Peptide 73 pg/mL (<100)
[2024-08-06 11:17] LABS: Alanine Aminotransferase 10 U/L (0-40); Albumin Level 2.5 g/dL (3.5-5.0); Alkaline Phosphatase 62 U/L (39-117); Anion Gap 14 (12-20); Aspartate Amino Transferase 26 U/L (5-37); Bilirubin Direct < 0.2 mg/dL (0.0-0.5); Bilirubin Total 0.2 mg/dL (0.0-1.0); Blood Urea Nitrogen 43 mg/dL (9-16); Calcium 8.3 mg/dL (8.4-10.2); Carbon Dioxide 23 mmol/L (22-29); Chloride 102 mmol/L (96-108); Creatinine Clr Calc Pharmacy 52.9; Estimated Glomerular Filt Rate 46; Glucose Random 107 mg/dL (60-115); Potassium 5.6 mmol/L (3.3-5.1); Sodium 133 mmol/L (135-145); Total Protein 6.2 g/dL (6.5-8.0)
[2024-08-06] MEDS: Albumin Human 25 % 50 ML 100 ML IV (11:44)
--- NOTE | 2024-08-06 11:50 | PC.NURSE ---
bedside paracentesis done by Dr Garcia,patient tolerated well,VSS, resp even and unlabored.
--- NOTE | 2024-08-06 12:33 | PC.NURSE ---
total of 9325 ml taken off with paracentesis
[2024-08-06 13:01] LABS: MN% 97.6 %; PMN% 2.4 %
[2024-08-06 13:03] LABS: RBC Peritoneal Fluid < 0.002 X10*6/uL
--- NOTE | 2024-08-06 13:56 | ECG_ITS ---
Test Reason : HYPERKALEMIA Blood Pressure : */* mmHG Vent. Rate : 101 BPM Atrial Rate : 101 BPM P-R Int : 140 ms QRS Dur : 84 ms QT Int : 352 ms P-R-T Axes : 60 32 50 degrees QTcB Int : 456 ms Sinus tachycardia Low voltage QRS poor R progresion anterior leads Abnormal ECG When compared with ECG of 16-Jul-2024 03:45, No significant changes seen Referred By: Kt Garcia Electronically Signed By: ASCENCION HOPSON
[2024-08-06 14:00] LABS: Neutrophils Peritoneal Fluid 6 %
[2024-08-06 14:01] LABS: BF Shift QC OK YES; Lymphocyte Peritoneal Fl 46 %; Monocytes Peritoneal Fl 25 %; Other Peritioneal Fl 23 %
[2024-08-06] MEDS: Albumin Human 25 % 100 ML 133.33 ML IV ×2 (14:15→15:16)
--- NOTE | 2024-08-06 14:44 | PHA.MEDREC ---
Pharmacy Consult ? Medication Reconciliation Pharmacy has completed the medication reconciliation. Utilized med list from [facility].
--- NOTE | 2024-08-06 15:17 | PM.IMHP ---
History of Present Illness Date of Service: 08/06/24 Attending physician on admission: Erasto Sena Chief Complaint: abd distension and discomfort 69-year-old male with history of slt-dxgityp-gupbymlwb type 2 diabetes, coronary artery disease, chronic indwelling Ngo catheter, cirrhosis of the liver with ascites, history of hepatitis-C, CVA history, CKD stage 3, hyperlipidemia presented to the ED from long-term care facility due to abdominal distention and discomfort with significant bilateral lower extremity edema and scrotal edema. Patient reportedly had 7/10 pain on arrival and ADD head 9.3 L of peritoneal fluid removed. Vital signs heparin remains stable and he is received 3 bags of albumin. He is a limited historian oriented to self and knows the month but not the year and nose that is the hospital but not which one. He is unable to provide much history. He does have chronic ngo in place. He has undergone paracentesis in the past. Since arrival, has been hypertensive which resolved following therapeutic paracentesis in the ED. Vital signs otherwise stable, no hypotension. There is no leukocytosis. He has a stable normocytic anemia. Platelets 264. Creatinine 1.52, baseline around 0.8. BUN 43. Sodium 133, potassium 5.6. Peritoneal fluid analysis pending. Review of Systems Review of Systems: Yes Unobtainable due to mental status [facility] Medical History Hypotension Chronic UTI (urinary tract infection) Anemia Coronary artery disease Depression Hyperlipidemia CKD (chronic kidney disease) CVA (cerebral vascular accident) Liver cirrhosis Diabetes mellitus Chronic indwelling Ngo catheter Cirrhosis of liver with ascites Hepatitis C Social History Household Members: Unknown / Unable to assess Alcohol intake: former Patient Tobacco Use Status: Former Tobacco user Advance Directives: No Advance Directives Information Provided: No service: No Meds Allergies Allergy/AdvReac Type Severity Reaction Status Date / Time No Known Allergies Allergy Verified 08/06/24 09:47 Active Medications: Current Medications Acetaminophen (Acetaminophen 325 Mg Tablet) 650 mg PO Q6H PRN PRN Reason: Pain, Mild 1-3,fever,headache Calcium Carbonate (Calcium Carbonate 750 Mg Tab.Chew) 750 mg PO Q4H PRN PRN Reason: Heartburn Albumin Human (Kedbumin 25 %) 100 mls @ 133.333 mls/hr IV Q1H [facility] Stop: 08/06/24 15:29 Last Admin: 08/06/24 15:16 Dose: 133.33 mls/hr Magnesium Hydroxide (Milk Of Magnesia 30 Ml Oral.Susp) 30 ml PO DAILY PRN PRN Reason: Constipation Melatonin (Melatonin 3 Mg Tablet) 6 mg PO BEDTIME PRN PRN Reason: Insomnia Sodium Chloride (0.9 % Sodium Chloride Flush 3 Ml Syringe) 3 ml IVFLUSH QSHIFT [facility] Home Medications ?Medication ?Instructions ?Recorded ?Confirmed ?Last Taken ?Type acetaminophen 325 mg tablet 650 mg PO Q6H PRN Fever Or Pain 06/26/24 08/06/24 Unknown History apixaban 5 mg tablet 5 mg PO BID 06/26/24 08/06/24 Unknown History atorvastatin 10 mg tablet 10 mg PO DAILY 06/26/24 08/06/24 Unknown History baclofen 5 mg tablet 5 mg PO TID 06/26/24 08/06/24 Unknown History bisacodyl 10 mg rectal suppository 10 mg MS DAILY PRN Constipation 06/26/24 08/06/24 Unknown History cholestyramine (with sugar) 4 gram 4 g PO DAILY 06/26/24 08/06/24 Unknown History oral powder finasteride 5 mg tablet 5 mg PO DAILY 06/26/24 08/06/24 Unknown History folic acid 1 mg tablet 1 mg PO DAILY 06/26/24 08/06/24 Unknown History gabapentin 100 mg capsule 200 mg PO BID 06/26/24 08/06/24 Unknown History glucagon 1 mg solution for 1 mg subcut Q20M PRN Hypoglycemia 06/26/24 08/06/24 Unknown History injection magnesium hydroxide 400 mg/5 mL 30 ml PO DAILY PRN Constipation 06/26/24 08/06/24 Unknown History oral suspension (Milk of Magnesia) magnesium oxide 400 mg PO DAILY 06/26/24 08/06/24 Unknown History midodrine 10 mg tablet 10 mg PO TIDWM 06/26/24 08/06/24 Unknown History mirtazapine 15 mg tablet (Remeron) 15 mg PO BEDTIME 06/26/24 08/06/24 Unknown History multivitamin 1 tab PO DAILY 06/26/24 08/06/24 Unknown History pantoprazole 20 mg tablet,delayed 20 mg PO DAILY@0630 02/02/25 03/15/25 Unknown History release polyvinyl alcohol 1.4 % eye drops 1 drp ophthalmic (eye) QID 06/26/24 08/06/24 Unknown History sodium phosphates 19 gram-7 118 ml MS DAILY PRN Constipation 06/26/24 08/06/24 Unknown History gram/118 mL enema (Fleet Enema) tamsulosin 0.4 mg capsule (Flomax) 0.8 mg PO BEDTIME 06/26/24 08/06/24 Unknown History dextrose 40 % oral gel (Glucose 15 g PO Q15M PRN Hypoglycemia 07/16/24 08/06/24 Unknown History Gel) escitalopram oxalate 10 mg tablet 10 mg PO DAILY 07/16/24 08/06/24 Unknown History furosemide 20 mg tablet 10 mg PO DAILY 07/16/24 08/06/24 Unknown History dextrose 40 % oral gel (Glucose 10 g PO Q15M PRN Hypocalcemia 08/06/24 08/06/24 Unknown History Gel) lactulose 10 gram/15 mL oral 10 g PO Q12H PRN Constipation 08/06/24 08/06/24 Unknown History solution metformin 500 mg tablet 500 mg PO BIDWMEAL 08/06/24 08/06/24 Unknown History Physical Exam Vital Signs and Narrative: Vital Signs: Last Vital Signs Temp 97.5 F 08/06/24 15:08 Pulse 96 08/06/24 15:08 Resp 20 08/06/24 15:08 BP 103/61 08/06/24 15:08 Pulse Ox 99 08/06/24 15:08 O2 Del Method Room Air 08/06/24 15:08 BMI result Body Mass Index 31.9 Constitutional - Awake and Alert, No apparent distress Eyes - PERRLA, EOMI Cardiovascular - S1S2, RRR, No edema Respiratory - Normal lung expansion, Normal respiratory effort, No respiratory distress, CTA bilaterally Gastrointestinal - nontender, softly distended. +BS; No rebound or guarding - indwelling catheter in place Extremities - no calf tenderness bilaterally, no swelling Skin - Warm/Dry Neurological - Alert & oriented to self. KNows he is in the hospital but unsure of which. Knows it is july but unsure of the year Results Labs 08/06/24 10:48 08/06/24 10:48 Labs: Laboratory Results - last 24 hr 08/06/24 08/06/24 08/06/24 10:48 10:49 12:47 MCV 85.0 MCH 27.4 MCHC 32.2 RDW 15.2 Plt Count 264 D MPV 9.1 L Immature Gran % (Auto) 0.8 H Neut % (Auto) 67.8 Lymph % (Auto) 20.0 [place] % (Auto) 8.8 Eos % (Auto) 2.1 Baso % (Auto) 0.5 Lymph # (Auto) 1.3 [place] # (Auto) 0.6 Eos # (Auto) 0.1 Baso # (Auto) 0.0 Abs Immat Gran (auto) 0.05 H Absolute Neuts (auto) 4.2 Absolute Nucleated RBC 0.000 Nucleated RBC % (auto) 0.0 PT 16.9 H D INR 1.4 H Anion Gap 14 Estim Creat Clear Calc 52.9 Estimated GFR 46 Random Glucose 107 Calcium 8.3 L Total Bilirubin 0.2 Direct Bilirubin < 0.2 AST 26 ALT 10 Alkaline Phosphatase 62 Ammonia 27 B-Natriuretic Peptide 73 Total Protein 6.2 L Albumin 2.5 L Peritoneal WBC 0.050 Peritoneal RBC < 0.002 Periton Neutrophils 6 Periton Lymphocytes 46 Peritoneal Monocytes 25 Peritoneal Other Cells 23 Assessment and Plan (1) Hlchv-bk-bvfmmed kidney injury: Status: Acute (2) Ascites: Status: Acute (3) Anasarca: Status: Acute Plan 69-year-old male with history of fkq-qitqvlv-zzvikajmh type 2 diabetes, coronary artery disease, chronic indwelling Ngo catheter, cirrhosis of the liver with ascites, history of hepatitis-C, CVA history, CKD stage 3, hyperlipidemia admitted for ascites/anasarca #WEBER cirrhosis with massive ascites and anasarca -Drained 9.3L in the ED, peritoneal fluid analysis pending -s/p 3 bags albumin -Hold lasix. Continue midodrine -Monitor vitals closely for hypotension #Acute kidney injury superimposed on CKD stage 3 -in the setting of above -albumin given as above. Hold Lasix -avoid nephrotoxins -follow renal function/lytes. Consider nephrology consult if not improving #Acute hyperkalemia -likely r/t hypovolemia from above -plan as above -follow lytes # unspecified cognitive impairment -monitor mental status # chronic normocytic anemia -related to chronic disease -baseline # BPH -continue Flomax, Ngo catheter # yzf-zryfbpq-zwejmolez type 2 diabetes -POC glucose, diabetic diet -hold metformin, sliding scale insulin # GERD -PPI # mood disorder -continue home medications # DVT prophylaxis-Eliquis Full code Patient requires inpatient stay at least 2 midnights for management of his massive ascites and anasarca resulting in acute kidney injury requiring large volume paracentesis with very close monitoring of renal function and electrolyte levels as well as vital signs given patient is at risk for hypotension Quality Stroke Does the patient have a stroke diagnosis?: No VTE Prior VTE?: No VTE Risk Level:: Medical - moderate - high VTE Device Contraindication: Treatment Not Indicated VTE Drug Contraindication: N/A - Med Ordered
[2024-08-06] MEDS: Midodrine HCl 10 MG TABLET PO (18:43)
[2024-08-06] MEDS: Baclofen 10 MG TABLET 5 MG PO (20:28)
[2024-08-06] MEDS: Gabapentin 100 MG CAPSULE 200 MG PO (20:28)
[2024-08-06] MEDS: Apixaban 5 MG TABLET PO (20:28)
[2024-08-06] MEDS: Sodium Bicarbonate 650 MG TABLET PO (20:28)
[2024-08-06] MEDS: Mirtazapine 15 MG TABLET PO (20:28)
[2024-08-06] MEDS: Tamsulosin HCL 0.4 MG CAPSULE 0.8 MG PO (20:29)
[2024-08-06] MEDS: Artificial Tears 15 ML DROPS 1 DROP EYE-BOTH (21:03)
[2024-08-07] VITALS (7 sets, daily range): BP systolic 90–109; BP diastolic 53–59; PULSE 92–98; RESP 16–18; TEMP 36.4–37.1; O2SAT 92–99
[2024-08-07 06:46] LABS: MANUAL DIFF FLAG NO
[2024-08-07 07:01] LABS: Basophils Percent Auto 0.3 % (0-2); Eosinophils Absolute Auto 0.1 X10*3/uL (0.0-0.4); Eosinophils Percent Auto 3.1 % (0-4); Hematocrit 23.6 % (42.0-52.0); Hemoglobin 7.3 g/dl (14.0-18.0); Imm Gran Abs Auto 0.02 X10*3/uL (0.00-0.03); Imm Gran Pct Auto 0.6 % (0.0-0.4); Lymphocytes Absolute Auto 0.8 X10*3/uL (1.2-4.9); Lymphocytes Percent Auto 21.5 % (20-40); Mean Corpuscular HGB Conc 30.9 g/dl (31.0-36.0); Mean Corpuscular Hemoglobin 27.1 pg (27.0-33.0); Mean Corpuscular Volume 87.7 fL (80.0-98.0); Mean Platelet Volume 9.4 fL (9.4-12.4); Monocytes Absolute Auto 0.3 X10*3/uL (0.1-1.2); Neutrophils Absolute Auto 2.3 x10*3/uL (2.0-8.3); Neutrophils Percent Auto 65.5 % (45-73); Platelet Count 173 X10*3/uL (160-400); Red Blood Count 2.69 X10*6/uL (4.60-5.80); Red Cell Distribution Width 14.8 % (11.0-16.0); White Blood Count 3.5 X10*3/uL (4.8-10.8)
[2024-08-07 07:44] LABS: Alanine Aminotransferase < 6 U/L (0-40); Albumin Level 2.4 g/dL (3.5-5.0); Alkaline Phosphatase 41 U/L (39-117); Anion Gap 13 (12-20); Aspartate Amino Transferase 23 U/L (5-37); Bilirubin Total 0.3 mg/dL (0.0-1.0); Blood Urea Nitrogen 40 mg/dL (9-16); Calcium 8.2 mg/dL (8.4-10.2); Carbon Dioxide 25 mmol/L (22-29); Chloride 105 mmol/L (96-108); Creatinine Clr Calc Pharmacy 60.4; Estimated Glomerular Filt Rate 55; Glucose Random 86 mg/dL (60-115); Potassium 5.2 mmol/L (3.3-5.1); Sodium 138 mmol/L (135-145)
[2024-08-07] MEDS: Baclofen 10 MG TABLET 5 MG PO ×3 (07:47→19:34)
[2024-08-07] MEDS: Pantoprazole Sodium 20 MG TABLET.DR PO (07:47)
[2024-08-07] MEDS: Finasteride 5 MG TABLET PO (07:48)
[2024-08-07] MEDS: Folic Acid 1 MG TABLET PO (07:48)
[2024-08-07] MEDS: Midodrine HCl 10 MG TABLET PO ×3 (07:49→17:12)
[2024-08-07] MEDS: Gabapentin 100 MG CAPSULE 200 MG PO ×2 (07:50→19:33)
[2024-08-07] MEDS: Escitalopram Oxalate 10 MG TABLET PO (07:50)
[2024-08-07] MEDS: Atorvastatin Calcium 10 MG TABLET PO (07:50)
[2024-08-07] MEDS: Apixaban 5 MG TABLET PO ×2 (07:51→19:33)
[2024-08-07] MEDS: Magnesium Oxide 400 MG TABLET PO (07:51)
[2024-08-07] MEDS: Multivitamin TABLET 1 TAB PO (07:51)
[2024-08-07] MEDS: 0.9 % Sodium Chloride Flush 3 ML SYRINGE IVFLUSH ×2 (07:51→17:13)
[2024-08-07] MEDS: Artificial Tears 15 ML DROPS 1 DROP EYE-BOTH ×4 (07:56→19:33)
[2024-08-07] MEDS: Sodium Bicarbonate 650 MG TABLET PO ×2 (08:00→19:34)
--- NOTE | 2024-08-07 09:44 | HO.PM.IMPN ---
Subjective Subjective Date of Service: 08/07/24 Interval History: abd distension resolved Physical Exam Vital Signs: Vital Signs: Last Vital Signs Temp 97.5 F 08/07/24 07:06 Pulse 98 08/07/24 07:06 Resp 18 08/07/24 07:06 BP 97/53 L 08/07/24 07:49 Pulse Ox 95 08/07/24 07:06 O2 Del Method Room Air 08/07/24 07:06 BMI result Body Mass Index 30.4 General: AO X 3, no acute distress, frail, ill appearing Resp: CTA bilateral, no accessory muscles used CVS: S1,S2,RRR GI: soft, non tender, non distended Neuro: motor grossly intact, alert Objective Data Active Medications Acetaminophen (Acetaminophen 325 Mg Tablet) 650 mg PO Q6H PRN PRN Reason: Pain, Mild 1-3,fever,headache Apixaban (Apixaban 5 Mg Tablet) 5 mg PO BID [facility] Last Admin: 08/07/24 07:51 Dose: 5 mg Documented By: SHILPA Artificial Tears (Artificial Tears 15 Ml Drops) 1 drop EYE-BOTH QID [facility] Last Admin: 08/07/24 07:56 Dose: 1 drop Documented By: SHILPA Atorvastatin Calcium (Atorvastatin Calcium 10 Mg Tablet) 10 mg PO DAILY [facility] Last Admin: 08/07/24 07:50 Dose: 10 mg Documented By: SHILPA Baclofen (Baclofen 10 Mg Tablet) 5 mg PO TID [facility] Last Admin: 08/07/24 07:47 Dose: 5 mg Documented By: SHILPA Bisacodyl (Bisacodyl 10 Mg Supp.Rect) 10 mg SD DAILY PRN PRN Reason: Constipation Calcium Carbonate (Calcium Carbonate 750 Mg Tab.Chew) 750 mg PO Q4H PRN PRN Reason: Heartburn Cholestyramine Resin (Cholestyramine (With Sugar) 4 Gm Powd.Pack) 4 gm PO DAILY [facility] Escitalopram Oxalate (Escitalopram Oxalate 10 Mg Tablet) 10 mg PO DAILY [facility] Last Admin: 08/07/24 07:50 Dose: 10 mg Documented By: SHILPA Finasteride (Finasteride 5 Mg Tablet) 5 mg PO DAILY [facility] Last Admin: 08/07/24 07:48 Dose: 5 mg Documented By: SHILPA Folic Acid (Folic Acid 1 Mg Tablet) 1 mg PO DAILY [facility] Last Admin: 08/07/24 07:48 Dose: 1 mg Documented By: SHILPA Gabapentin (Gabapentin 100 Mg Capsule) 200 mg PO BID [facility] Last Admin: 08/07/24 07:50 Dose: 200 mg Documented By: SHILPA Lactulose (Lactulose 20 Gm/30 Ml Solution) 10 gm PO Q12H PRN PRN Reason: Constipation Magnesium Hydroxide (Milk Of Magnesia 30 Ml Oral.Susp) 30 ml PO DAILY PRN PRN Reason: Constipation Magnesium Hydroxide (Milk Of Magnesia 30 Ml Oral.Susp) 30 ml PO DAILY PRN PRN Reason: Constipation Magnesium Oxide (Magnesium Oxide 400 Mg Tablet) 400 mg PO DAILY [facility] Last Admin: 08/07/24 07:51 Dose: 400 mg Documented By: SHILPA Melatonin (Melatonin 3 Mg Tablet) 6 mg PO BEDTIME PRN PRN Reason: Insomnia Midodrine (Midodrine Hcl 10 Mg Tablet) 10 mg PO TIDWM [facility] Last Admin: 08/07/24 07:49 Dose: 10 mg Documented By: SHILPA Mirtazapine (Mirtazapine 15 Mg Tablet) 15 mg PO BEDTIME [facility] Last Admin: 08/06/24 20:28 Dose: 15 mg Documented By: SONAM Multivitamins/Vitamin C (Multivitamin Tablet) 1 tab PO DAILY [facility] Last Admin: 08/07/24 07:51 Dose: 1 tab Documented By: SHILPA Pantoprazole Sodium (Pantoprazole Sodium 20 Mg Tablet.Dr) 20 mg PO DAILY@0630 [facility] Last Admin: 08/07/24 07:47 Dose: 20 mg Documented By: SHILPA Sodium Bicarbonate (Sodium Bicarbonate 650 Mg Tablet) 650 mg PO BID [facility] Last Admin: 08/07/24 08:00 Dose: 650 mg Documented By: SHILPA Sodium Biphosphate/Sodium Phosphate (Sodium Phosphate,[place]-Dibasic 133 Ml Enema) 118 ml SD DAILY PRN PRN Reason: Constipation Sodium Chloride (0.9 % Sodium Chloride Flush 3 Ml Syringe) 3 ml IVFLUSH QSHIFT [facility] Last Admin: 08/07/24 07:51 Dose: 3 ml Documented By: SHILPA Tamsulosin HCl (Tamsulosin Hcl 0.4 Mg Capsule) 0.8 mg PO BEDTIME LOTTIE Last Admin: 08/06/24 20:29 Dose: 0.8 mg Documented By: SONAM Labs 08/07/24 06:39 08/07/24 06:39 Labs: Laboratory Results - last 24 hr 08/06/24 08/06/24 08/06/24 10:48 10:49 12:47 MCV 85.0 MCH 27.4 MCHC 32.2 RDW 15.2 Plt Count 264 D MPV 9.1 L Immature Gran % (Auto) 0.8 H Neut % (Auto) 67.8 Lymph % (Auto) 20.0 [place] % (Auto) 8.8 Eos % (Auto) 2.1 Baso % (Auto) 0.5 Lymph # (Auto) 1.3 [place] # (Auto) 0.6 Eos # (Auto) 0.1 Baso # (Auto) 0.0 Abs Immat Gran (auto) 0.05 H Absolute Neuts (auto) 4.2 Absolute Nucleated RBC 0.000 Nucleated RBC % (auto) 0.0 PT 16.9 H D INR 1.4 H Anion Gap 14 Estim Creat Clear Calc 52.9 Estimated GFR 46 Random Glucose 107 Calcium 8.3 L Total Bilirubin 0.2 Direct Bilirubin < 0.2 AST 26 ALT 10 Alkaline Phosphatase 62 Ammonia 27 B-Natriuretic Peptide 73 Total Protein 6.2 L Albumin 2.5 L Peritoneal WBC 0.050 Peritoneal RBC < 0.002 Periton Neutrophils 6 Periton Lymphocytes 46 Peritoneal Monocytes 25 Peritoneal Other Cells 23 08/07/24 06:39 MCV 87.7 MCH 27.1 MCHC 30.9 L RDW 14.8 Plt Count 173 D MPV 9.4 Immature Gran % (Auto) 0.6 H Neut % (Auto) 65.5 Lymph % (Auto) 21.5 [place] % (Auto) 9.0 Eos % (Auto) 3.1 Baso % (Auto) 0.3 Lymph # (Auto) 0.8 L [place] # (Auto) 0.3 Eos # (Auto) 0.1 Baso # (Auto) 0.0 Abs Immat Gran (auto) 0.02 Absolute Neuts (auto) 2.3 Absolute Nucleated RBC 0.000 Nucleated RBC % (auto) 0.0 PT INR Anion Gap 13 Estim Creat Clear Calc 60.4 Estimated GFR 55 Random Glucose 86 Calcium 8.2 L Total Bilirubin 0.3 Direct Bilirubin AST 23 ALT < 6 Alkaline Phosphatase 41 Ammonia B-Natriuretic Peptide Total Protein 5.0 L Albumin 2.4 L Peritoneal WBC Peritoneal RBC Periton Neutrophils Periton Lymphocytes Peritoneal Monocytes Peritoneal Other Cells Microbiology Microbiology Results: Microbiology 08/06/24 12:47 Gram Stain - Final Abdominal Fluid Routine Culture - Preliminary No growth to date. Anaerobic Culture - Preliminary No growth to date. Assessment and Plan (1) Fssga-fo-dxqgvyi kidney injury: Status: Acute Plan 69M PMH diabetes, coronary disease, cva with right hemiplegia, chronic indwelling Smith catheter, history of DVT, HCV cirrhosis with ascites, CKD 3, hyperlipidemia presented with abdominal distention and acute kidney injury HCV cirrhosis with symptomatic ascites Status post 9.3 L paracentesis on 08/06/2024 250 mL of albumin given, we will give another 100 mL today Labs negative for SBP Acute kidney injury on CKD 3 Continue albumin, hold diuretics, monitor Acute hyperkalemia Resolved Diabetes Insulin sliding scale BPH with chronic urinary retention Continue Smith, Flomax History of right common femoral vein DVT may 2024 Continue Eliquis Full Code reason for continued hospitalization: Monitoring LUZMA Quality Stroke Does the patient have a stroke diagnosis?: No VTE Prior VTE?: No VTE Risk Level:: Medical - moderate - high VTE Device Contraindication: Treatment Not Indicated VTE Drug Contraindication: N/A - Med Ordered
[2024-08-07] MEDS: Cholestyramine (With Sugar) 4 GM POWD.PACK PO (11:13)
[2024-08-07] MEDS: Albumin Human 25 % 50 ML 100 ML IV ×2 (11:13→12:44)
--- NOTE | 2024-08-07 16:49 | MHC.CM.PN ---
PT IS A LTC RESIDENT AT [facility] WHERE HE IS DEPENDENT FOR CARE PTS HCP, ON FILE, WAS INVOKED SINCE 07/28/24 CM SPOKE TO PTS HCP, RADHA [phone] PCP: CADE VALLADARES IMM DELIVERED DCP: RETURN TO [facility] VIA BLS RADHA HAD QUESTIONS ABOUT HOSPICE, MESSAGE SENT TO HOSPITALIST
[2024-08-07] MEDS: Mirtazapine 15 MG TABLET PO (19:33)
[2024-08-07] MEDS: Tamsulosin HCL 0.4 MG CAPSULE 0.8 MG PO (19:34)
[2024-08-08] VITALS: BP 106/60; PULSE 98; RESP 16; TEMP 36.6; O2SAT 93
[2024-08-08 03:34] VITALS: BP 89/51; PULSE 96; RESP 16; TEMP 37.2; O2SAT 93
[2024-08-08 04:54] VITALS: BP 95/53
[2024-08-08 06:52] LABS: Hematocrit 23.9 % (42.0-52.0); Hemoglobin 7.5 g/dl (14.0-18.0); Mean Corpuscular HGB Conc 31.4 g/dl (31.0-36.0); Mean Corpuscular Hemoglobin 27.4 pg (27.0-33.0); Mean Corpuscular Volume 87.2 fL (80.0-98.0); Mean Platelet Volume 9.2 fL (9.4-12.4); Platelet Count 168 X10*3/uL (160-400); Red Blood Count 2.74 X10*6/uL (4.60-5.80); Red Cell Distribution Width 14.8 % (11.0-16.0)
[2024-08-08 06:58] VITALS: BP 92/57; PULSE 92; RESP 16; TEMP 36.5; O2SAT 94
[2024-08-08 07:08] LABS: Anion Gap 11 (12-20); Blood Urea Nitrogen 33 mg/dL (9-16); Calcium 8.3 mg/dL (8.4-10.2); Carbon Dioxide 27 mmol/L (22-29); Chloride 104 mmol/L (96-108); Creatinine Clr Calc Pharmacy 70.2; Estimated Glomerular Filt Rate > 60; Glucose Random 88 mg/dL (60-115); Potassium 5.1 mmol/L (3.3-5.1); Sodium 137 mmol/L (135-145)
--- NOTE | 2024-08-08 09:39 | PM.DS ---
DS: Providers Provider Date of Service: 08/08/24 Date of admission: 08/06/24 15:03 Date of discharge: 08/08/24 Primary care physician: Bing Doan MD Consults: 08/08/24 04:27 Consult to Wound Care Routine Reason for consultation: Open wound to coccyx. skin tear forearm DS: Diagnosis Discharge Diagnosis (1) Arico-dv-ubevtmq kidney injury: Status: Acute DS: Summary Hospital Course Hospital Course: from initial hpi: 69-year-old male with history of nel-qbkqgef-mvagaxfid type 2 diabetes, coronary artery disease, chronic indwelling Ngo catheter, cirrhosis of the liver with ascites, history of hepatitis-C, CVA history, CKD stage 3, hyperlipidemia presented to the ED from long-term care facility due to abdominal distention and discomfort with significant bilateral lower extremity edema and scrotal edema. Patient reportedly had 7/10 pain on arrival and ADD head 9.3 L of peritoneal fluid removed. Vital signs heparin remains stable and he is received 3 bags of albumin. He is a limited historian oriented to self and knows the month but not the year and nose that is the hospital but not which one. He is unable to provide much history. He does have chronic ngo in place. He has undergone paracentesis in the past. Since arrival, has been hypertensive which resolved following therapeutic paracentesis in the ED. Vital signs otherwise stable, no hypotension. There is no leukocytosis. He has a stable normocytic anemia. Platelets 264. Creatinine 1.52, baseline around 0.8. BUN 43. Sodium 133, potassium 5.6. Peritoneal fluid analysis pending. hospital course: Patient was admitted for hepatitis-C cirrhosis with symptomatic ascites. Had 9.3 L paracentesis on 08/06/2024 and fluid was negative for SBP. Received 250 mL total albumin. For acute kidney injury on CKD 3 diuretics were held and received albumin and creatinine returned to baseline. For hyperkalemia this resolved. For diabetes was continued insulin sliding scale. For BPH with chronic urinary retention was continued on Flomax and has chronic Ngo. For history of right common femoral DVT on May 2024 was continued on Eliquis. Patient is now medically stable will be discharged back to long-term care. Time Attestation Discharge Coordination Time (in mins): 35 Quality: Safe Use of Opioids Does Pt have an Active Cancer Diagnosis on the Problem List?: No Quality: Stroke Does the patient have a stroke diagnosis?: No Physical Exam Vital Signs: Vital Signs: Last Vital Signs Temp 97.7 F 08/08/24 06:58 Pulse 92 08/08/24 06:58 Resp 16 08/08/24 06:58 BP 92/57 L 08/08/24 06:58 Pulse Ox 94 08/08/24 06:58 O2 Del Method Room Air 08/08/24 06:58 BMI result Body Mass Index 30.4 General: AO X 3, no acute distress, frail, ill appearing Resp: CTA bilateral, no accessory muscles used CVS: S1,S2,RRR GI: soft, non tender, non distended Neuro: motor grossly intact, alert DS: Data Data Completed and Pending Completed studies during hospitalization [Text1]: Procedures Drainage of Peritoneal Cavity, Percutaneous Approach (07/16/24) Introduction of Vasopressor into Peripheral Vein, Percutaneous Approach (07/16/24) Transfusion of Nonautologous Red Blood Cells into Peripheral Vein, Percutaneous Approach (07/16/24) Labs on day of discharge: Laboratory Results - last 24 hr 08/08/24 06:33 WBC 4.0 L RBC 2.74 L Hgb 7.5 L Hct 23.9 L MCV 87.2 MCH 27.4 MCHC 31.4 RDW 14.8 Plt Count 168 MPV 9.2 L Absolute Nucleated RBC 0.000 Nucleated RBC % (auto) 0.0 Sodium 137 Potassium 5.1 Chloride 104 Carbon Dioxide 27 Anion Gap 11 L BUN 33 H Creatinine 1.12 Estim Creat Clear Calc 70.2 Estimated GFR > 60 Random Glucose 88 Calcium 8.3 L Preliminary micro results at discharge 08/06/24 12:47 Anaerobic Culture - Preliminary Abdominal Fluid No growth to date. Discharge Plan Discharge Anticipated Discharge Date/Time: 08/08/24 09:04 Patient Disposition: Xfer [facility] Discharge Diagnosis: tammy, ascites Referrals: Bing Doan MD [Primary Care Provider] - 1 Week Discharge Medications: Continued multivitamin Tablet 1 tab PO DAILY acetaminophen 325 mg Tablet 650 mg PO Q6H PRN (Reason: Fever Or Pain) Rx Instructions: DNE 3 G IN 24 HRS atorvastatin 10 mg Tablet 10 mg PO DAILY polyvinyl alcohol 1.4 % Drops 1 drp OPHTHALMIC (EYE) QID pantoprazole 20 mg Tablet,Delayed Release (Dr/Ec) 20 mg PO DAILY@0630 magnesium hydroxide [Milk of Magnesia] 400 mg/5 mL Suspension 30 ml PO DAILY PRN (Reason: Constipation) tamsulosin [Flomax] 0.4 mg Capsule 0.8 mg PO BEDTIME bisacodyl 10 mg Suppository 10 mg AK DAILY PRN (Reason: Constipation) Fleet Enema 19-7 gram/118 mL Enema 118 ml AK DAILY PRN (Reason: Constipation) folic acid 1 mg Tablet 1 mg PO DAILY mirtazapine [Remeron] 15 mg Tablet 15 mg PO BEDTIME gabapentin 100 mg Capsule 200 mg PO BID glucagon 1 mg Recon Soln 1 mg SUBCUT Q20M PRN (Reason: Hypoglycemia) Rx Instructions: until target blood sugar attained finasteride 5 mg Tablet 5 mg PO DAILY midodrine 10 mg Tablet 10 mg PO TIDWM Rx Instructions: do not give last dose of day after 6PM or within 4 hrs of bedtime cholestyramine (with sugar) 4 gram Powder 4 g PO DAILY Rx Instructions: administer w/meal; avoid other meds within 1hr before or 4-6hr after dose apixaban 5 mg Tablet 5 mg PO BID baclofen 5 mg Tablet 5 mg PO TID magnesium oxide 400 mg magnesium Tablet 400 mg PO DAILY sodium bicarbonate 650 mg Tablet 650 mg PO BID Qty: 180 0RF dextrose [Glucose Gel] 40 % Gel 15 g PO Q15M PRN (Reason: Hypoglycemia) Rx Instructions: until symptoms of low blood sugar are controlled furosemide 20 mg Tablet 10 mg PO DAILY Rx Instructions: END DATE: 07/17/24 escitalopram oxalate 10 mg Tablet 10 mg PO DAILY lactulose 10 gram/15 mL solution 10 g PO Q12H PRN (Reason: Constipation) metformin 500 mg Tablet 500 mg PO BIDWMEAL dextrose [Glucose Gel] 40 % Gel 10 g PO Q15M PRN (Reason: Hypocalcemia) Rx Instructions: until symptoms of low blood sugar are controlled Discharge Orders: Discharge Order (Routine); Ordered 08/08/24 Ordered By: Erasto Sena Diet: Advance to usual diet Activity on Discharge: As tolerated Stand Alone Forms: Patient Portal Discharge page Print Language: Romansh Care Plan Goals: recovery Health Concerns: cirrhosis Plan of Treatment: funmilayo jackson meds Assessment: see above
[2024-08-08] MEDS: Atorvastatin Calcium 10 MG TABLET PO (09:49)
[2024-08-08] MEDS: Multivitamin TABLET 1 TAB PO (09:49)
[2024-08-08] MEDS: Folic Acid 1 MG TABLET PO (09:49)
[2024-08-08] MEDS: Gabapentin 100 MG CAPSULE 200 MG PO (09:49)
[2024-08-08] MEDS: Sodium Bicarbonate 650 MG TABLET PO (09:49)
[2024-08-08] MEDS: Apixaban 5 MG TABLET PO (09:50)
[2024-08-08] MEDS: Midodrine HCl 10 MG TABLET PO (09:50)
[2024-08-08] MEDS: Magnesium Oxide 400 MG TABLET PO (09:50)
[2024-08-08] MEDS: Escitalopram Oxalate 10 MG TABLET PO (09:50)
[2024-08-08] MEDS: Baclofen 10 MG TABLET 5 MG PO (09:50)
[2024-08-08] MEDS: Finasteride 5 MG TABLET PO (09:50)
[2024-08-08] MEDS: Pantoprazole Sodium 20 MG TABLET.DR PO (09:52)
[2024-08-08] MEDS: 0.9 % Sodium Chloride Flush 3 ML SYRINGE IVFLUSH (09:52)
[2024-08-08] MEDS: Artificial Tears 15 ML DROPS 1 DROP EYE-BOTH (09:54)
--- NOTE | 2024-08-08 10:28 | MHC.CM.PN ---
Pt is medically cleared for discharge back to [facility] today, he will transport there via BLS/[facility]. Pts HCP/Keshawn called to update on the discharge, voicemail left, awaiting return call.
[2024-08-08 11:18] VITALS: BP 95/57; PULSE 99; RESP 16; TEMP 36.6; O2SAT 96
[2024-08-08 12:31] LABS: Albumin Peritoneal Fluid 1.4; Total Protein Peritoneal Fluid 2.3
[2024-08-08 12:32] LABS: Amylase Peritoneal Fluid 16; Creatinine Peritoneal Fluid 1.5; Glucose Peritoneal Fluid 101; LDH Peritoneal Fluid 56
[2024-08-08 12:33] LABS: pH Peritoneal Fluid 7.45
== END 2024-08-08 13:15 | DRG 433 ==
LOC: HO.ED 13:35 → HO.EDOVER 15:20 → HO.IMC 16:54
PROVIDERS: Admitting Provider Physician Assistant; Emergency Provider Emergency Medicine; PCP Internal Medicine; Visit Provider Internal Medicine
DX: K74.69 Other cirrhosis of liver (principal); N17.9 Acute kidney failure, unspecified; R18.8 Other ascites; I12.9 Hypertensive chronic kidney disease with stage 1 through stage 4 chronic kidney disease, or unspecified chronic kidney disease; N18.30 Chronic kidney disease, stage 3 unspecified; E87.5 Hyperkalemia; E11.22 Type 2 diabetes mellitus with diabetic chronic kidney disease; N40.1 Benign prostatic hyperplasia with lower urinary tract symptoms; R33.8 Other retention of urine; K75.81 Nonalcoholic steatohepatitis (NASH); K21.9 Gastro-esophageal reflux disease without esophagitis; F39 Unspecified mood [affective] disorder; D63.1 Anemia in chronic kidney disease; I25.10 Atherosclerotic heart disease of native coronary artery without angina pectoris; Z96.0 Presence of urogenital implants; Z86.19 Personal history of other infectious and parasitic diseases; Z86.718 Personal history of other venous thrombosis and embolism; Z87.891 Personal history of nicotine dependence; Z79.01 Long term (current) use of anticoagulants; Z79.84 Long term (current) use of oral hypoglycemic drugs; Z79.899 Other long term (current) drug therapy
CPT/HCPCS: 36415; 80048; 80053; 82042; 82140; 82150; 82248; 82570; 82945; 83615; 83880; 83986; 84157; 85025; 85027; 85610; 87070; 87073; 87205; 89051; 93005; 99285; P9047

== ENCOUNTER → 2024-08-06 13:56 | Outpatient (BNV) | payer MEDICARE, MEDICAID, SELFPAY | PROVIDERS: Admitting Provider Physician Assistant; Emergency Provider Emergency Medicine; Visit Provider Internal Medicine | DX: R00.0 Tachycardia, unspecified (principal) | CPT/HCPCS: 93010 ==

== ENCOUNTER → 2024-08-06 15:03 | Outpatient (BNV) | payer MEDICARE, MEDICAID, SELFPAY | PROVIDERS: Admitting Provider Physician Assistant; Emergency Provider Emergency Medicine; Visit Provider Physician Assistant | DX: N17.9 Acute kidney failure, unspecified (principal); N18.9 Chronic kidney disease, unspecified | CPT/HCPCS: 99223; 99233; 99239 ==

== ENCOUNTER 2024-08-23 13:49 | Observation (INO) | payer MEDICARE, MEDICAID, SELFPAY ==
[2024-08-23] VITALS (14 sets, daily range): BP systolic 92–119; BP diastolic 49–80; PULSE 50–115; RESP 16–28; TEMP 36.4–37.1; O2SAT 95–100; BMI 31.4; BMI 27.0
[2024-08-23 14:19] LABS: MANUAL DIFF FLAG NO
[2024-08-23 14:20] LABS: Basophils Absolute Auto 0.1 X10*3/uL (0.0-0.2); Basophils Percent Auto 0.6 % (0-2); Eosinophils Absolute Auto 0.3 X10*3/uL (0.0-0.4); Eosinophils Percent Auto 3.2 % (0-4); Hematocrit 25.7 % (42.0-52.0); Hemoglobin 8.1 g/dl (14.0-18.0); Imm Gran Abs Auto 0.06 X10*3/uL (0.00-0.03); Imm Gran Pct Auto 0.7 % (0.0-0.4); Lymphocytes Absolute Auto 1.7 X10*3/uL (1.2-4.9); Lymphocytes Percent Auto 19.9 % (20-40); Mean Corpuscular HGB Conc 31.5 g/dl (31.0-36.0); Mean Corpuscular Hemoglobin 27.7 pg (27.0-33.0); Mean Platelet Volume 9.3 fL (9.4-12.4); Monocytes Absolute Auto 0.7 X10*3/uL (0.1-1.2); Monocytes Percent Auto 8.6 % (2-11); Neutrophils Absolute Auto 5.6 x10*3/uL (2.0-8.3); Platelet Count 297 X10*3/uL (160-400); Red Blood Count 2.92 X10*6/uL (4.60-5.80); Red Cell Distribution Width 15.8 % (11.0-16.0); White Blood Count 8.4 X10*3/uL (4.8-10.8)
[2024-08-23 14:28] LABS: INTERNATIONAL NORM RATIO 1.3 (0.9-1.1); Prothrombin Time 15.6 SEC (10.9-12.4)
--- NOTE | 2024-08-23 14:30 | ED.GENADULT ---
HPI - General Adult General Chief complaint: General Medical Stated complaint: Fluid Retention Time Seen by Provider: 08/23/24 14:28 Source: patient and EMS Mode of arrival: EMS Limitations: no limitations History of Present Illness ED Provider: DR. Garcia HPI narrative: 69-year-old male coming from [facility], history of liver cirrhosis with ascites required paracentesis several times in the past, presented from [facility] for increased ascites and abdominal distention, patient feel uncomfortable with the distention, also sustained a scrotal swelling and bilateral lower extremity swelling. patient was drained on 08/06 2024 about 9L. No fever, no chills, no shortness of breath. Related Data Home Medications ?Medication ?Instructions ?Recorded ?Confirmed acetaminophen 325 mg tablet 650 mg PO Q6H PRN Fever Or Pain 06/26/24 08/06/24 apixaban 5 mg tablet 5 mg PO BID 06/26/24 08/06/24 atorvastatin 10 mg tablet 10 mg PO DAILY 06/26/24 08/06/24 baclofen 5 mg tablet 5 mg PO TID 06/26/24 08/06/24 bisacodyl 10 mg rectal suppository 10 mg ND DAILY PRN Constipation 06/26/24 08/06/24 cholestyramine (with sugar) 4 gram 4 g PO DAILY 06/26/24 08/06/24 oral powder finasteride 5 mg tablet 5 mg PO DAILY 06/26/24 08/06/24 folic acid 1 mg tablet 1 mg PO DAILY 06/26/24 08/06/24 gabapentin 100 mg capsule 200 mg PO BID 06/26/24 08/06/24 glucagon 1 mg solution for 1 mg subcut Q20M PRN Hypoglycemia 06/26/24 08/06/24 injection magnesium hydroxide 400 mg/5 mL 30 ml PO DAILY PRN Constipation 06/26/24 08/06/24 oral suspension (Milk of Magnesia) magnesium oxide 400 mg PO DAILY 06/26/24 08/06/24 midodrine 10 mg tablet 10 mg PO TIDWM 06/26/24 08/06/24 mirtazapine 15 mg tablet (Remeron) 15 mg PO BEDTIME 06/26/24 08/06/24 multivitamin 1 tab PO DAILY 06/26/24 08/06/24 pantoprazole 20 mg tablet,delayed 20 mg PO DAILY@0630 06/26/24 08/06/24 release polyvinyl alcohol 1.4 % eye drops 1 drp ophthalmic (eye) QID 06/26/24 08/06/24 sodium phosphates 19 gram-7 118 ml ND DAILY PRN Constipation 06/26/24 08/06/24 gram/118 mL enema (Fleet Enema) tamsulosin 0.4 mg capsule (Flomax) 0.8 mg PO BEDTIME 06/26/24 08/06/24 dextrose 40 % oral gel (Glucose 15 g PO Q15M PRN Hypoglycemia 07/16/24 08/06/24 Gel) escitalopram oxalate 10 mg tablet 10 mg PO DAILY 07/16/24 08/06/24 furosemide 20 mg tablet 10 mg PO DAILY 07/16/24 08/06/24 dextrose 40 % oral gel (Glucose 10 g PO Q15M PRN Hypocalcemia 08/06/24 08/06/24 Gel) lactulose 10 gram/15 mL oral 10 g PO Q12H PRN Constipation 08/06/24 08/06/24 solution metformin 500 mg tablet 500 mg PO BIDWMEAL 08/06/24 08/06/24 Previous Rx's ?Medication ?Instructions ?Recorded sodium bicarbonate 650 mg tablet 650 mg PO BID #180 tabs 06/29/24 Allergies Allergy/AdvReac Type Severity Reaction Status Date / Time No Known Allergies Allergy Verified 08/23/24 14:04 Review of Systems Review of Systems: All other systems are reviewed and are negative Constitutional: Reports as per HPI and Reports no additional constitutional complaints Eyes: Reports as per HPI and Reports no additional eye complaints Reports system reviewed and no additional complaints, except as documented Cardiovascular: Reports as per HPI and Reports no additional cardiovascular complaints Respiratory: Reports as per HPI and Reports no additional respiratory complaints Gastrointestinal: Reports as per HPI and Reports no additional gastrointestinal complaints Genitourinary: Reports no additional female genitourinary complaints Musculoskeletal: Reports no additional musculoskeletal complaints Skin/Breast: Reports system reviewed and no additional complaints, except as docu Psychiatric: Reports no additional psychiatric complaints Endocrine: Reports no additional endocrine complaints Hematologic/Lymphatic: Reports no additional hematologic/lymphatic complaints Allergic/Immunologic: Reports no additional allergic/immunologic complaints Reports system reviewed and no additional complaints, except as documented and Reports Abnormal speech present [facility] Past Medical History Attestation statement: The following information was validated with the patient. Medical History Hypotension Chronic UTI (urinary tract infection) Anemia Coronary artery disease Depression Hyperlipidemia CKD (chronic kidney disease) CVA (cerebral vascular accident) Liver cirrhosis Diabetes mellitus Chronic indwelling Smith catheter Cirrhosis of liver with ascites Hepatitis C Social History Social History Household Members: Unknown / Unable to assess Housing: Intermediate Do you presently have visiting nurse or other home services: No Alcohol intake: former Patient Tobacco Use Status: Former Tobacco user Smoked in Last 30 Days: No e-Cigarette/Vaping Use: Never Used Second Hand Smoke Exposure: No Use of substances other than those prescribed or required for medical reasons: No Advance Directives: No Advance Directives Information Provided: Yes Do you have a plan to hurt others: No Plan service: No Physical Exam ED Vital Signs: Vital Signs - 24 hr 08/23/24 14:02 08/23/24 14:51 08/23/24 15:00 Temperature 98.8 F Pulse Rate 115 H 112 H 108 H Respiratory Rate 24 H 24 H 20 Blood Pressure 99/62 119/70 95/70 Pulse Oximetry 95 95 96 Oxygen Delivery Method Room Air Room Air Room Air 08/23/24 15:14 08/23/24 15:19 08/23/24 15:31 Temperature Pulse Rate 104 H 105 H 98 Respiratory Rate 28 H 24 H 18 Blood Pressure 109/65 108/62 106/61 Pulse Oximetry 97 99 100 Oxygen Delivery Method Room Air Room Air Room Air 08/23/24 15:38 08/23/24 15:48 08/23/24 16:17 Temperature Pulse Rate 101 H 101 H 95 Respiratory Rate 16 18 16 Blood Pressure 100/57 L 99/60 96/61 Pulse Oximetry 100 99 98 Oxygen Delivery Method Room Air Room Air Room Air BMI result Body Mass Index 31.4 Vital signs have been reviewed and appear to be correct. Blood pressure elevated. Heart rate elevated, Respiratory rate normal. Temperature normal. Oxygen saturation normal. Appearance: Alert. Oriented X3. No acute distress. Head: Normal external exam. Normocephalic. Atraumatic. No Smart signs noted. No raccoon eyes noted Eyes: PERRLA. EOMI. Conjunctiva and sclera normal. Eyelids normal. ENT: TM's Normal. Pharynx normal. Uvula midline. Moist mucous membranes. No trismus noted. No drooling noted. No muffled voice noted. Neck: Normal inspection. Neck supple. FROM. No adenopathy. Thyroid Normal. No meningeal signs. No neck mass noted. CVS: Normal heart rate and rhythm. Heart sound normal. No murmurs noted. Pulses normal throughout. Respiratory: No respiratory distress. Painless inspiration. Breath sounds normal. No wheezes/rales/rhonchi noted. Chest nontender. No accessory muscle usage noted or decreased air movement noted. Abdomen: Severe abdominal distention With massive ascites, mild diffuse tenderness, no guarding, no rebound tenderness.Bowel sounds normal in all 4 quadrants. No distention noted. No organomegaly noted. No visible injury noted. Back: No CVA tenderness. Full range of motion noted. Skin: Skin warm and dry. Normal skin color. Normal skin turgor. No rashes/lesions/lacerations noted. Extremities: No lower extremity edema. Extremities exhibit normal range of motion. Extremities nontender. Neuro: Oriented X 3. Cranial nerve exam: II-XII are grossly intact No motor deficit. No sensory deficit. Reflexes normal. Course Reevaluation(s) Reevaluation #1: severe ascites with no abdominal pain SBP is not likely g stain and culture is pending, patient has peritoneal paracentesis was 10 L of clear fluid was drained, BP is a borderline, patient received 2 units of albumin to support his blood pressure. Time: 16:19 Medications Administered Generic Name Dose Route Start Last Admin Trade Name Freq PRN Reason Stop Dose Admin Albumin Human 100 mls @ 133.333 mls/hr 08/23/24 15:00 08/23/24 15:48 Kedbumin 25 % IV 08/23/24 16:44 Infused Q1H LOTTIE Infusion Procedures Paracentesis Time Out Performed: Yes Indication: Ascites Procedure: therapeutic paracentesis Location: LLQ Bedside Ultrasound Used: yes, Ascites confirmed and location marked Preparation: sterile prep and drape Amount of fluid obtained (mL): 10,000 Fluid: clear Size of Needle Used: 5 Post Procedure Exam: awake, alert Patient Tolerated Procedure: well Complications: none ( except for borderline hypotension.) Medical Decision Making Differential Diagnosis Differential Diagnoses: The differential diagnosis associated with the presentation includes ( SBP, post paracentesis hypotension, hypovolemia, electrolyte derangement, severe anemia.) Admission/Observation Consideration of admission/observation: Escalation of care including admission/observation considered Consult Healthcare Provider Management of the patient was discussed with: Hospitalist ( Dr. Sena) Lab Data MDM Lab Attestation statement: I reviewed the patient's lab results. 08/23/24 14:12 08/23/24 14:12 Labs: Lab Results 08/23/24 Range/Units 14:12 WBC 8.4 (4.8-10.8) X10*3/uL RBC 2.92 L (4.60-5.80) X10*6/uL Hgb 8.1 L (14.0-18.0) g/dl Hct 25.7 L (42.0-52.0) % MCV 88.0 (80.0-98.0) fL MCH 27.7 (27.0-33.0) pg MCHC 31.5 (31.0-36.0) g/dl RDW 15.8 (11.0-16.0) % Plt Count 297 D (160-400) X10*3/uL MPV 9.3 L (9.4-12.4) fL Immature Gran % (Auto) 0.7 H (0.0-0.4) % Neut % (Auto) 67.0 (45-73) % Lymph % (Auto) 19.9 L (20-40) % [place] % (Auto) 8.6 (2-11) % Eos % (Auto) 3.2 (0-4) % Baso % (Auto) 0.6 (0-2) % Lymph # (Auto) 1.7 (1.2-4.9) X10*3/uL [place] # (Auto) 0.7 (0.1-1.2) X10*3/uL Eos # (Auto) 0.3 (0.0-0.4) X10*3/uL Baso # (Auto) 0.1 (0.0-0.2) X10*3/uL Abs Immat Gran (auto) 0.06 H (0.00-0.03) X10*3/uL Absolute Neuts (auto) 5.6 (2.0-8.3) x10*3/uL Absolute Nucleated RBC 0.000 (0.0-0.012) X10*3/uL Nucleated RBC % (auto) 0.0 (0.0-0.2) /100WBC PT 15.6 H (10.9-12.4) SEC INR 1.3 H (0.9-1.1) Sodium 135 (135-145) mmol/L Potassium 5.5 H (3.3-5.1) mmol/L Chloride 100 (96-108) mmol/L Carbon Dioxide 25 (22-29) mmol/L Anion Gap 16 (12-20) BUN 53 H (9-16) mg/dL Creatinine 1.59 H (0.5-1.4) mg/dL Estim Creat Clear Calc 54.9 Estimated GFR 43 Random Glucose 119 H (60-115) mg/dL Calcium 8.7 (8.4-10.2) mg/dL Total Bilirubin 0.2 (0.0-1.0) mg/dL AST 24 (5-37) U/L ALT 13 (0-40) U/L Alkaline Phosphatase 62 (39-117) U/L B-Natriuretic Peptide 122 H (<100) pg/mL Total Protein 6.4 L (6.5-8.0) g/dL Albumin 2.7 L (3.5-5.0) g/dL Discharge Plan Discharge Clinical Impression: Ascites Patient Disposition: Admitted As Inpatient Print Language: Nepali
[2024-08-23 14:34] LABS: Alanine Aminotransferase 13 U/L (0-40); Albumin Level 2.7 g/dL (3.5-5.0); Alkaline Phosphatase 62 U/L (39-117); Anion Gap 16 (12-20); Aspartate Amino Transferase 24 U/L (5-37); Bilirubin Total 0.2 mg/dL (0.0-1.0); Blood Urea Nitrogen 53 mg/dL (9-16); Calcium 8.7 mg/dL (8.4-10.2); Carbon Dioxide 25 mmol/L (22-29); Chloride 100 mmol/L (96-108); Creatinine Clr Calc Pharmacy 54.9; Estimated Glomerular Filt Rate 43; Glucose Random 119 mg/dL (60-115); Potassium 5.5 mmol/L (3.3-5.1); Sodium 135 mmol/L (135-145); Total Protein 6.4 g/dL (6.5-8.0)
[2024-08-23 14:39] LABS: B Type Natriuretic Peptide 122 pg/mL (<100)
--- NOTE | 2024-08-23 14:50 | PC.NURSE ---
Provider presently at bedside for paracentesis.
[2024-08-23] MEDS: Albumin Human 25 % 100 ML 133.33 ML IV ×2 (15:02→15:25)
--- NOTE | 2024-08-23 15:16 | PC.NURSE ---
provider declined Paracentesis sample sent, last admission sample was sent
--- NOTE | 2024-08-23 16:28 | P.HPHOSP_ITS ---
History of Present Illness Date of Service: 08/23/24 Chief Complaint: abd pain 69M PMH diabetes, coronary disease, CVA with right hemiplegia, chronic indwelling Smtih catheter, history of DVT on Eliquis, HCV cirrhosis with ascites, CKD 3, hyperlipidemia presented with abdominal distention. Patient was recently admitted on 08/06/24-08/08/24 for similar symptoms, at that time complicated by acute kidney injury on CKD 3 which improved with albumin. [facility] and continued on Aldactone and Lasix but had progression of ascites to the point where it became uncomfortable again so he was sent to the ER. ER performed paracentesis with 10 L of clear fluid with relief of symptoms. Review of Systems 2 Review of Systems: Yes all other systems are reviewed and are negative [facility] Medical History Hypotension Chronic UTI (urinary tract infection) Anemia Coronary artery disease Depression Hyperlipidemia CKD (chronic kidney disease) CVA (cerebral vascular accident) Liver cirrhosis Diabetes mellitus Chronic indwelling Smith catheter Cirrhosis of liver with ascites Hepatitis C Social History Household Members: Unknown / Unable to assess Housing: Retirement Do you presently have visiting nurse or other home services: No Alcohol intake: former Patient Tobacco Use Status: Former Tobacco user Smoked in Last 30 Days: No e-Cigarette/Vaping Use: Never Used Second Hand Smoke Exposure: No Use of substances other than those prescribed or required for medical reasons: No Advance Directives: No Advance Directives Information Provided: Yes Do you have a plan to hurt others: No Plan service: No Meds Allergies Allergy/AdvReac Type Severity Reaction Status Date / Time No Known Allergies Allergy Verified 08/23/24 14:04 Active Medications: Current Medications Albumin Human (Kedbumin 25 %) 100 mls @ 133.333 mls/hr IV Q1H LOTTIE Stop: 08/23/24 16:44 Last Infusion: 08/23/24 15:48 Dose: Infused Albumin Human (Kedbumin 25 %) 50 mls @ 100 mls/hr IV ONCE ONE Stop: 08/23/24 16:48 Home Medications ?Medication ?Instructions ?Recorded ?Confirmed ?Last Taken ?Type acetaminophen 325 mg tablet 650 mg PO Q6H PRN Fever Or Pain 02/02/25 03/15/25 Unknown History apixaban 5 mg tablet 5 mg PO BID 06/26/24 08/06/24 Unknown History atorvastatin 10 mg tablet 10 mg PO DAILY 06/26/24 08/06/24 Unknown History baclofen 5 mg tablet 5 mg PO TID 06/26/24 08/06/24 Unknown History bisacodyl 10 mg rectal suppository 10 mg ND DAILY PRN Constipation 06/26/24 08/06/24 Unknown History cholestyramine (with sugar) 4 gram 4 g PO DAILY 06/26/24 08/06/24 Unknown History oral powder finasteride 5 mg tablet 5 mg PO DAILY 06/26/24 08/06/24 Unknown History folic acid 1 mg tablet 1 mg PO DAILY 06/26/24 08/06/24 Unknown History gabapentin 100 mg capsule 200 mg PO BID 06/26/24 08/06/24 Unknown History glucagon 1 mg solution for 1 mg subcut Q20M PRN Hypoglycemia 06/26/24 08/06/24 Unknown History injection magnesium hydroxide 400 mg/5 mL 30 ml PO DAILY PRN Constipation 06/26/24 08/06/24 Unknown History oral suspension (Milk of Magnesia) magnesium oxide 400 mg PO DAILY 06/26/24 08/06/24 Unknown History midodrine 10 mg tablet 10 mg PO TIDWM 06/26/24 08/06/24 Unknown History mirtazapine 15 mg tablet (Remeron) 15 mg PO BEDTIME 06/26/24 08/06/24 Unknown History multivitamin 1 tab PO DAILY 06/26/24 08/06/24 Unknown History pantoprazole 20 mg tablet,delayed 20 mg PO DAILY@0630 06/26/24 08/06/24 Unknown History release polyvinyl alcohol 1.4 % eye drops 1 drp ophthalmic (eye) QID 06/26/24 08/06/24 Unknown History sodium phosphates 19 gram-7 118 ml ND DAILY PRN Constipation 06/26/24 08/06/24 Unknown History gram/118 mL enema (Fleet Enema) tamsulosin 0.4 mg capsule (Flomax) 0.8 mg PO BEDTIME 06/26/24 08/06/24 Unknown History dextrose 40 % oral gel (Glucose 15 g PO Q15M PRN Hypoglycemia 07/16/24 08/06/24 Unknown History Gel) escitalopram oxalate 10 mg tablet 10 mg PO DAILY 07/16/24 08/06/24 Unknown History furosemide 20 mg tablet 10 mg PO DAILY 07/16/24 08/06/24 Unknown History dextrose 40 % oral gel (Glucose 10 g PO Q15M PRN Hypocalcemia 08/06/24 08/06/24 Unknown History Gel) lactulose 10 gram/15 mL oral 10 g PO Q12H PRN Constipation 08/06/24 08/06/24 Unknown History solution metformin 500 mg tablet 500 mg PO BIDWMEAL 08/06/24 08/06/24 Unknown History Physical Exam 2 Vital Signs and Narrative: Vital Signs: Last Vital Signs Temp 98.8 F 08/23/24 14:02 Pulse 95 08/23/24 16:17 Resp 16 08/23/24 16:17 BP 96/61 08/23/24 16:17 Pulse Ox 98 08/23/24 16:17 O2 Del Method Room Air 08/23/24 16:17 BMI result Body Mass Index 31.4 General: Alert, no acute distress, frail appearing Resp: CTA bilateral, no accessory muscles used CVS: S1,S2,RRR GI: soft, non tender, non distended Neuro: motor grossly intact, alert Results Labs 08/23/24 14:12 08/23/24 14:12 Labs: Laboratory Results - last 24 hr 08/23/24 14:12 MCV 88.0 MCH 27.7 MCHC 31.5 RDW 15.8 Plt Count 297 D MPV 9.3 L Immature Gran % (Auto) 0.7 H Neut % (Auto) 67.0 Lymph % (Auto) 19.9 L [place] % (Auto) 8.6 Eos % (Auto) 3.2 Baso % (Auto) 0.6 Lymph # (Auto) 1.7 [place] # (Auto) 0.7 Eos # (Auto) 0.3 Baso # (Auto) 0.1 Abs Immat Gran (auto) 0.06 H Absolute Neuts (auto) 5.6 Absolute Nucleated RBC 0.000 Nucleated RBC % (auto) 0.0 PT 15.6 H INR 1.3 H Anion Gap 16 Estim Creat Clear Calc 54.9 Estimated GFR 43 Random Glucose 119 H Calcium 8.7 Total Bilirubin 0.2 AST 24 ALT 13 Alkaline Phosphatase 62 B-Natriuretic Peptide 122 H Total Protein 6.4 L Albumin 2.7 L Assessment and Plan (1) Ascites: Status: Acute Plan 69M PMH diabetes, coronary disease, CVA with right hemiplegia, chronic indwelling Smith catheter, history of DVT on Eliquis, HCV cirrhosis with ascites, CKD 3, hyperlipidemia presented with abdominal distention Hepatitis-C cirrhosis with symptomatic ascites Status post 10 L paracentesis We will give 3 bags of albumin Monitor BMP No evidence of SBP Continue Lasix and Aldactone CKD 3 Appears stable at this time, monitor Diabetes Insulin sliding scale, check A1c BPH with chronic urinary retention Continue Smith, Flomax History of right common femoral DVT in May 2024 Continue Eliquis Full Code Quality Stroke Does the patient have a stroke diagnosis?: No VTE Prior VTE?: Yes VTE Risk Level:: Medical - moderate - high VTE Device Contraindication: Treatment Not Indicated VTE Drug Contraindication: N/A - Med Ordered
[2024-08-23] MEDS: Albumin Human 25 % 50 ML 100 ML IV (16:37)
[2024-08-23 16:50] LABS: Glucose, Whole Blood 109 mg/dL (60-115)
[2024-08-23 17:14] LABS: Estimated Average Glucose 108 mg/dL; Hemoglobin A1C 75.4564 umol/L; Hemoglobin A1c % 5.4 % (<6.0); Total Hemoglobin (HGBA1C) 2156.7927 umol/L
[2024-08-23 17:16] LABS: MN% 95.4 %; PMN% 4.6 %; WBC Peritoneal Fluid 0.076 X10*3/uL
--- NOTE | 2024-08-23 17:16 | PHA.MEDREC ---
Pharmacy Consult ? Medication Reconciliation Pharmacy has completed the medication reconciliation, utilized list from [facility].
--- OUTSIDE RECORDS SUMMARY | 2024-08-23 17:18 | XMS_ITS | Encounter Summary ---
Author Organization [facility] Address [address] [place] [address] Care Team Providers Care Rest Room Attendant Name Role Phone Priscilla Doan MD Primary Care Provider + Encounter Details Date Type Department Care Team (Late st Contact Info) Description 08/23/2024 Lab Requisition [facility] - Main Lab [address] [facility] [place] [address] Priscilla Doan MD [address] [address] Essential (primary) hypertension Social History Tobacco Use Types Packs/Day Years [...] Associated Diagnosis Comments COMPLETE BLOOD COUNT Routine 08/23/2024 5:05 AM EDT Essential (primary) hypertension BASIC METABOLIC PANEL Routine 08/23/2024 5:05 AM EDT Essential (primary) hypertension documented in this encounter Results * (ABNORMAL) Basic metabolic panel (08/23/2024 5:05 AM EDT) Sodium 133 133 - 145 mmol/L LAB CHEMISTRY METHOD 08/23/2024 11:42 AM EDT [facility] Potassium 5.9(H) 3.5 - 5.5 mmol/L LAB CHEMISTRY METHOD 08/23/2024 11:42 AM T [facility] Chloride 99 96 - 110 mmol/L LAB CHEMISTRY METHOD 08/23/2024 11:42 AM [facility] CO2 26 21 - 32 mmol/L LAB CHEMISTRY METHOD 08/23/2024 11:42 AM [facility] Anion Gap 8 3 - 11 LAB CHEMISTRY METHOD 08/23/2024 11:42 AM [facility] Glucose 79 70 - 100 mg/dL LAB CHEMISTRY METHOD 08/23/2024 11:42 AM [facility] BUN 53(H) 5 - 25 mg/dL LAB CHEMISTRY METHOD 08/23/2024 11:42 AM [facility] Creatinine 1.62(H) 0.70 - 1.30 mg/dL LAB CHEMISTRY METHOD 08/23/2024 11:42 AM [facility] eGFR 46(L) >=60 mL/min/1. 73m2 LAB CHEMISTRY METHOD 08/23/2024 11:42 AM [facility] Comment:Calculation based on the??Chronic Kidney Disease Epidemiology Collaboration (CKD-EPI) equation refit??without adjustment for race. BUN/Creatinine Ratio 32.7 LAB CHEMISTRY METHOD 08/23/2024 11:42 AM [facility] Calcium 8.6 8.5 - 10.5 mg/dL LAB CHEMISTRY METHOD 08/23/2024 11:42 AM [facility] Blood Venous blood specimen / Unknown Venipuncture / Unknown 08/23/2024 5:05 AM EDT 08/23/2024 10:01 AM EDT us Priscilla Doan MD LAB BLOOD ORDERABLES Fin al Result [facility] [address] [place] [address], * (ABNORMAL) Complete blood count (08/23/2024 5:05 AM EDT) WBC 5.8 4.8 - 10.8 K/mcL LAB HEMETOLOGY METHOD 08/23/2024 10:45 AM [facility] RBC 2.60(L) 4.50 - 5.50 M/mcL LAB HEMETOLOGY METHOD 08/23/2024 10:45 AM [facility] Hemoglobin 7.2(L) 13.5 - 17.5 g/dL LAB HEMETOLOGY METHOD 08/23/2024 10:45 AM [facility] Hematocrit 23.9(L) 42.0 - 54.0 % LAB HEMETOLOGY METHOD 08/23/2024 10:45 AM [facility] MCV 90.9 79.0 - 98.0 FL LAB HEMETOLOGY METHOD 08/23/2024 10:45 AM [facility] MCH 27.4 27.0 - 32.0 pcg LAB HEMETOLOGY METHOD 08/23/2024 10:45 AM [facility] MCHC 30.1(L) 32.0 - 37.0 g/dL LAB HEMETOLOGY METHOD 08/23/2024 10:45 AM [facility] RDW 15.6(H) 11.0 - 15.0 % LAB HEMETOLOGY METHOD 08/23/2024 10:45 AM [facility] Platelets 243 130 - 400 K/mcL LAB HEMETOLOGY METHOD 08/23/2024 10:45 AM [facility] MPV 9.8 7.0 - 11.0 FL LAB HEMETOLOGY METHOD 08/23/2024 10:45 AM [facility] NRBC 0.0 <1.0 % LAB HEMETOLOGY METHOD 08/23/2024 10:45 AM [facility] NRBC Absolute 0.00 <0.10 K/mcL LAB HEMETOLOGY METHOD 08/23/2024 10:45 AM [facility] Blood Venous blood specimen / Unknown Venipuncture / Unknown 08/23/2024 5:05 AM EDT 08/23/2024 10:01 AM EDT Priscilla Doan MD LAB BLOOD ORDERABLES Fin al Result Performing Organization Address City/State/[facility] Co de Phone Number [facility] ([facility]) [facility] [address] [place] [address], documented in this encounter Visit Diagnoses Diagnosis Essential (primary) hypertension Unspecified essential hypertension documented in this encounter Care Teams Rest Room Attendant Relationship Specialty Start Date End Date Priscilla Doan MD [address] [place] [id number] PCP - General Family Medicine 06/18/24 documented as of this encounter
--- OUTSIDE RECORDS SUMMARY | 2024-08-23 17:18 | XMS_ITS | Encounter Summary ---
Author Organization [facility] Address [address] [place] [address] Care Team Providers Care Cat Breeder Name Role Phone Priscilla Doan MD Primary Care Provider + Encounter Details Date Type Department Care Team (Late st Contact Info) Description 08/11/2024 Lab Requisition [facility] - Main Lab [address] [facility] [place] [address] Priscilla Doan MD [address] [address] Type 2 diabetes mellitus without complications (CMS/HCC); Unspecified viral hepatitis C 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 [...] Associated Diagnosis Comments COMPLETE BLOOD COUNT Routine 08/12/2024 5:30 AM EDT Type 2 diabetes mellitus without complications Unspecified viral hepatitis C 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 COMPREHENSIVE METABOLIC PANEL Routine 08/12/2024 5:30 AM EDT Type 2 diabetes mellitus without complications Unspecified viral hepatitis C 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 documented in this encounter Results * (ABNORMAL) Comprehensive metabolic panel (08/12/2024 5:30 AM EDT) Sodium 136 133 - 145 mmol/L LAB CHEMISTRY METHOD 08/12/2024 10:48 AM EDT [facility] Potassium 5.3 3.5 - 5.5 mmol/L LAB CHEMISTRY METHOD 08/12/2024 10:48 AM [facility] Chloride 102 96 - 110 mmol/L LAB CHEMISTRY METHOD 08/12/2024 10:48 AM [facility] CO2 28 21 - 32 mmol/L LAB CHEMISTRY METHOD 08/12/2024 10:48 AM [facility] Anion Gap 6 3 - 11 LAB CHEMISTRY METHOD 08/12/2024 10:48 AM [facility] Glucose 83 70 - 100 mg/dL LAB CHEMISTRY METHOD 08/12/2024 10:48 AM [facility] BUN 29(H) 5 - 25 mg/dL LAB CHEMISTRY METHOD 08/12/2024 10:48 AM [facility] Creatinine 1.12 0.70 - 1.30 mg/dL LAB CHEMISTRY METHOD 08/12/2024 10:48 AM [facility] eGFR 71 >=60 mL/min/1. 73m2 LAB CHEMISTRY METHOD 08/12/2024 10:48 AM [facility] Comment:Calculation based on the??Chronic Kidney Disease Epidemiology Collaboration (CKD-EPI) equation refit??without adjustment for race. BUN/Creatinine Ratio 25.9 LAB CHEMISTRY METHOD 08/12/2024 10:48 AM [facility] Calcium 8.5 8.5 - 10.5 mg/dL LAB CHEMISTRY METHOD 08/12/2024 10:48 AM [facility] AST (SGOT) 19 10 - 42 unit/L LAB CHEMISTRY METHOD 08/12/2024 10:48 AM [facility] ALT (SGPT) 20 10 - 60 unit/L LAB CHEMISTRY METHOD 08/12/2024 10:48 AM [facility] Alkaline Phosphatase 68 42 - 121 unit/L LAB CHEMISTRY METHOD 08/12/2024 10:48 AM [facility] Total Protein 5.5(L) 6.0 - 8.0 g/dL LAB CHEMISTRY METHOD 08/12/2024 10:48 AM EDT [facility] Albumin 2.0(L) 3.2 - 5.0 g/dL LAB CHEMISTRY METHOD 08/12/2024 10:48 AM EDT [facility] Total Bilirubin 0.3 0.0 - 1.4 mg/dL LAB CHEMISTRY METHOD 08/12/2024 10:48 AM EDT [facility] Blood Venous blood specimen / Unknown Venipuncture / Unknown 08/12/2024 5:30 AM EDT 08/12/2024 10:48 AM EDT us Priscilla Doan MD LAB BLOOD ORDERABLES Fin al Result [facility] [address] [place] [address], [place] [phone] * (ABNORMAL) Complete blood count (08/12/2024 5:30 AM EDT) WBC 5.9 4.8 - 10.8 K/mcL LAB HEMETOLOGY METHOD 08/12/2024 10:15 AM T [facility] RBC 3.00(L) 4.50 - 5.50 M/mcL LAB HEMETOLOGY METHOD 08/12/2024 10:15 AM [facility] Hemoglobin 8.1(L) 13.5 - 17.5 g/dL LAB HEMETOLOGY METHOD 08/12/2024 10:15 AM EDT [facility] Hematocrit 26.3(L) 42.0 - 54.0 % LAB HEMETOLOGY METHOD 08/12/2024 10:15 AM EDT [facility] MCV 88.3 79.0 - 98.0 FL LAB HEMETOLOGY METHOD 08/12/2024 10:15 AM [facility] MCH 27.2 27.0 - 32.0 pcg LAB HEMETOLOGY METHOD 08/12/2024 10:15 AM EDT [facility] MCHC 30.8(L) 32.0 - 37.0 g/dL LAB HEMETOLOGY METHOD 08/12/2024 10:15 AM EDT [facility] RDW 15.0 11.0 - 15.0 % LAB HEMETOLOGY METHOD 08/12/2024 10:15 AM EDT [facility] Platelets 242 130 - 400 K/mcL LAB HEMETOLOGY METHOD 08/12/2024 10:15 AM EDT [facility] MPV 9.8 7.0 - 11.0 FL LAB HEMETOLOGY METHOD 08/12/2024 10:15 AM EDT [facility] NRBC 0.0 <1.0 % LAB HEMETOLOGY METHOD 08/12/2024 10:15 AM EDT [facility] NRBC Absolute 0.00 <0.10 K/mcL LAB HEMETOLOGY METHOD 08/12/2024 10:15 AM EDT [facility] Blood Venous blood specimen / Unknown Venipuncture / Unknown 08/12/2024 5:30 AM EDT 08/12/2024 10:15 AM EDT us Priscilla Doan MD LAB BLOOD ORDERABLES Fin al Result [facility] [address] [place] [address], documented in this encounter Visit Diagnoses Diagnosis Type 2 diabetes mellitus without complications Unspecified viral hepatitis C 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 documented in this encounter Care Teams Cat Breeder Relationship Specialty Start Date End Date Priscilla Doan MD [address] [place] [id number] PCP - General Family Medicine 06/18/24 documented as of this encounter
--- OUTSIDE RECORDS SUMMARY | 2024-08-23 17:18 | XMS_ITS | Encounter Summary ---
Author Organization [facility] Address [address] [place] [address] Care Team Providers Care Legal Billing Clerk Name Role Phone Elder, Priscilla Childs MD Primary Care Provider + Encounter Details Date Type Department Care Team (Late st Contact Info) Description 07/15/2024 Lab Requisition [facility] Lab [address] [facility] [place] [address] Noman Pastrana MD [address] [place] [address] [place] [phone] Retention of urine, unspecified Social History Tobacco [...] LAB CHEMISTRY METHOD 07/15/2024 12:30 PM EST [facility] Potassium 6.4(HH) 3.5 - 5.5 mmol/L LAB CHEMISTRY METHOD 07/15/2024 12:30 PM EST [facility] Chloride 106 96 - 110 mmol/L LAB CHEMISTRY METHOD 07/15/2024 12:30 PM EST [facility] CO2 21 21 - 32 mmol/L LAB CHEMISTRY METHOD 07/15/2024 12:30 PM [facility] Anion Gap 8 3 - 11 LAB CHEMISTRY METHOD 07/15/2024 12:30 PM [facility] Glucose 88 70 - 100 mg/dL LAB CHEMISTRY METHOD 07/15/2024 12:30 PM [facility] BUN 44(H) 5 - 25 mg/dL LAB CHEMISTRY METHOD 07/15/2024 12:30 PM [facility] Creatinine 1.58(H) 0.70 - 1.30 mg/dL LAB CHEMISTRY METHOD 07/15/2024 12:30 PM [facility] eGFR 47(L) >=60 mL/min/1. 73m2 LAB CHEMISTRY METHOD 07/15/2024 12:30 PM [facility] Comment:Calculation based on the??Chronic Kidney Disease Epidemiology Collaboration (CKD-EPI) equation refit??without adjustment for race. BUN/Creatinine Ratio 27.8 LAB CHEMISTRY METHOD 07/15/2024 12:30 PM [facility] Calcium 9.2 8.5 - 10.5 mg/dL LAB CHEMISTRY METHOD 07/15/2024 12:30 PM [facility] Blood Venous blood specimen / Unknown Venipuncture / Unknown 07/15/2024 5:33 AM EST 07/15/2024 10:49 AM EST us Noman Pastrana MD LAB BLOOD ORDERABLES Final Resu lt [facility] [address] [place] [address], documented in this encounter Visit Diagnoses Diagnosis Retention of urine, unspecified documented in this encounter Care Teams Legal Billing Clerk Relationship Specialty Start Date End Date Priscilla Doan MD [address] [address] PCP - General Family Medicine 06/18/24 documented as of this encounter
--- OUTSIDE RECORDS SUMMARY | 2024-08-23 17:18 | XMS_ITS | Encounter Summary ---
Author Organization [facility] Address [address] [place] [address] Care Team Providers Care Caustic Liquor Maker Name Role Phone Elder, Priscilla Childs MD Primary Care Provider + Encounter Details Date Type Department Care Team (Late st Contact Info) Description 08/09/2024 Lab Requisition [facility] Lab [address] [place] [address] Inessa Stallings NP [address] [place] [address] Essential (primary) hypertension Social History Tobacco Use [...] Associated Diagnosis Comments COMPLETE BLOOD COUNT Routine 08/09/2024 7:12 AM EDT Essential (primary) hypertension COMPREHENSIVE METABOLIC PANEL Routine 08/09/2024 7:12 AM EDT Essential (primary) hypertension documented in this encounter Results * (ABNORMAL) Comprehensive metabolic panel (08/09/2024 7:12 AM EDT) Sodium 135 133 - 145 mmol/L LAB CHEMISTRY METHOD 08/09/2024 12:[address] [facility] Potassium 4.5 3.5 - 5.5 mmol/L LAB CHEMISTRY METHOD 08/09/2024 12:[address] [facility] Chloride 102 96 - 110 mmol/L LAB CHEMISTRY METHOD 08/09/2024 12:[address] [facility] CO2 27 21 - 32 mmol/L LAB CHEMISTRY METHOD 08/09/2024 12:14 PM [facility] Anion Gap 6 3 - 11 LAB CHEMISTRY METHOD 08/09/2024 12:14 PM [facility] Glucose 77 70 - 100 mg/dL LAB CHEMISTRY METHOD 08/09/2024 12:14 PM [facility] BUN 31(H) 5 - 25 mg/dL LAB CHEMISTRY METHOD 08/09/2024 12:14 PM [facility] Creatinine 1.11 0.70 - 1.30 mg/dL LAB CHEMISTRY METHOD 08/09/2024 12:14 PM [facility] eGFR 72 >=60 mL/min/1. 73m2 LAB CHEMISTRY METHOD 08/09/2024 12:14 PM [facility] Comment:Calculation based on the??Chronic Kidney Disease Epidemiology Collaboration (CKD-EPI) equation refit??without adjustment for race. BUN/Creatinine Ratio 27.9 LAB CHEMISTRY METHOD 08/09/2024 12:14 PM [facility] Calcium 8.2(L) 8.5 - 10.5 mg/dL LAB CHEMISTRY METHOD 08/09/2024 12:14 PM [facility] AST (SGOT) 18 10 - 42 unit/L LAB CHEMISTRY METHOD 08/09/2024 12:14 PM [facility] ALT (SGPT) 15 10 - 60 unit/L LAB CHEMISTRY METHOD 08/09/2024 12:14 PM [facility] Alkaline Phosphatase 51 42 - 121 unit/L LAB CHEMISTRY METHOD 08/09/2024 12:14 PM [facility] Total Protein 4.8(L) 6.0 - 8.0 g/dL LAB CHEMISTRY METHOD 08/09/2024 12:14 PM [facility] Albumin 2.1(L) 3.2 - 5.0 g/dL LAB CHEMISTRY METHOD 08/09/2024 12:[address] [facility] Total Bilirubin 0.3 0.0 - 1.4 mg/dL LAB CHEMISTRY METHOD 08/09/2024 12:[address] [facility] Blood Venous blood specimen / Unknown Venipuncture / Unknown 08/09/2024 7:12 AM EDT 08/09/2024 10:46 AM EDT Inessa Stallings [employer] LAB BLOOD ORDERABLES Final Resul t [facility] [address] [place] [address], * (ABNORMAL) Complete blood count (08/09/2024 7:12 AM EDT) WBC 4.3(L) 4.8 - 10.8 K/mcL LAB HEMETOLOGY METHOD 08/09/2024 11:28 AM [facility] RBC 2.70(L) 4.50 - 5.50 M/mcL LAB HEMETOLOGY METHOD 08/09/2024 11:28 AM [facility] Hemoglobin 7.3(L) 13.5 - 17.5 g/dL LAB HEMETOLOGY METHOD 08/09/2024 11:28 AM [facility] Hematocrit 24.0(L) 42.0 - 54.0 % LAB HEMETOLOGY METHOD 08/09/2024 11:28 AM [facility] MCV 90.2 79.0 - 98.0 FL LAB HEMETOLOGY METHOD 08/09/2024 11:28 AM [facility] MCH 27.4 27.0 - 32.0 pcg LAB HEMETOLOGY METHOD 08/09/2024 11:28 AM [facility] MCHC 30.4(L) 32.0 - 37.0 g/dL LAB HEMETOLOGY METHOD 08/09/2024 11:[address] [facility] RDW 14.9 11.0 - 15.0 % LAB HEMETOLOGY METHOD 08/09/2024 11:[address] [facility] Platelets 195 130 - 400 K/mcL LAB HEMETOLOGY METHOD 08/09/2024 11:[address] [facility] MPV 10.3 7.0 - 11.0 FL LAB HEMETOLOGY METHOD 08/09/2024 11:[address] [facility] NRBC 0.0 <1.0 % LAB HEMETOLOGY METHOD 08/09/2024 11:[address] [facility] NRBC Absolute 0.00 <0.10 K/mcL LAB HEMETOLOGY METHOD 08/09/2024 11:[address] [facility] Blood Venous blood specimen / Unknown Venipuncture / Unknown 08/09/2024 7:12 AM EDT 08/09/2024 10:46 AM EDT [facility] LAB BLOOD ORDERABLES Final Resul t [facility] [address] [place] [address], [place] [phone] documented in this encounter Visit Diagnoses Diagnosis Essential (primary) hypertension Unspecified essential hypertension documented in this encounter Care Teams Caustic Liquor Maker Relationship Specialty Start Date End Date Priscilla Doan MD [address] [address] PCP - General Family Medicine 06/18/24 documented as of this encounter
--- OUTSIDE RECORDS SUMMARY | 2024-08-23 17:18 | XMS_ITS | Encounter Summary ---
Author Organization [facility] Address [address] [place] [address] Care Team Providers Care Hot End Operator Name Role Phone Priscilla Doan MD Primary Care Provider + Encounter Details Date Type Department Care Team (Late st Contact Info) Description 06/24/2024 Lab Requisition [facility] - Main Lab [address] [facility] [place] [address] Priscilla Doan MD [address] [address] Unspecified viral hepatitis C 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 [...] coma documented in this encounter Care Teams Hot End Operator Relationship Specialty Start Date End Date Priscilla Doan MD [address] [place] [address] PCP - General Family Medicine 06/18/24 documented as of this encounter
--- OUTSIDE RECORDS SUMMARY | 2024-08-23 17:18 | XMS_ITS | Clinical Summary ---
Author Organization [address] [facility] Address [address] [place] [address] Phone Care Team Providers Care Pantry Goods Worker Name Role Phone Priscilla Doan MD Primary Care Provider + Encounters Date Type Department Care Team Description 08/23/2024 Lab Requisition [facility] - Main Lab [address] [place] [phone] Priscilla Doan MD Essential (primary) hypertension 08/18/2024 Lab Requisition [facility] Lab [address] [place] [phone] Priscilla Doan MD Unspecified viral hepatitis C 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; Type 2 diabetes mellitus without complications (CMS/HCC) 08/18/2024 Lab Requisition [facility] Lab [address] [place] [phone] Priscilla Doan MD Unspecified cirrhosis of liver (CMS/HCC); Type 2 diabetes mellitus without complications (CMS/HCC); Hypertensive chronic kidney disease with stage 1 through stage 4 chronic kidney disease, or unspecified chronic kidney disease 08/11/2024 Lab Requisition [facility] - Main Lab [address] [place] [phone] Priscilla Doan MD Type 2 diabetes mellitus without complications (CMS/HCC); Unspecified viral hepatitis C 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 08/09/2024 Lab Requisition [facility] - Main Lab [address] [place] [phone] Inessa Stallings NP Essential (primary) hypertension 08/04/2024 Lab Requisition [facility] Main Lab [address] [place] [phone] Priscilla Doan MD Unspecified viral hepatitis C 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; Type 2 diabetes mellitus without complications (CMS/HCC) 08/03/2024 Lab Requisition [facility] - Main Lab [address] [place] [phone] Priscilla Doan MD Chronic kidney disease, unspecified 07/30/2024 Lab Requisition [facility] Main Lab [address] [place] [phone] Priscilla Doan MD Essential (primary) hypertension; Type 2 diabetes mellitus without complications (CMS/HCC) 07/28/2024 Lab Requisition [facility] Lab [address] [place] [phone] Priscilla Doan MD Unspecified viral hepatitis C 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; Type 2 diabetes mellitus without complications (CMS/HCC) 07/26/2024 Lab Requisition [facility] Lab [address] [place] [phone] Priscilla Doan MD Type 2 diabetes mellitus without complications (CMS/HCC); Chronic viral hepatitis C (CMS/HCC); Chronic kidney disease, stage 3 unspecified (CMS/HCC) 07/22/2024 Lab Requisition [facility] Lab [address] [place] [phone] Priscilla Doan MD Hyperkalemia; Unspecified cirrhosis of liver (CMS/HCC); Unspecified viral hepatitis C 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; Type 2 diabetes mellitus without complications (CMS/HCC); Other cirrhosis of liver (CMS/HCC) 07/15/2024 Lab Requisition [facility] Main Lab [address] [place] [phone] Priscilla Doan MD Unspecified viral hepatitis C 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 07/15/2024 Lab Requisition [facility] Main Lab [address] [place] [phone] Noman Pastrana MD Retention of urine, unspecified 07/14/2024 Lab Requisition [facility] - Main Lab [address] [place] [address] Priscilla Doan MD Unspecified cirrhosis of liver (CMS/HCC) 07/09/2024 Lab Requisition [facility] - Main Lab [address] [place] [address] Priscilla Doan MD Unspecified viral hepatitis C 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 07/01/2024 Lab Requisition [facility] Main Lab [address] [place] [address] Priscilla Doan MD Unspecified viral hepatitis C 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 06/30/2024 Lab Requisition [facility] Main Lab [address] [place] [address] Noman Pastrana PA Unspecified viral hepatitis C 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; Acute embolism and thrombosis of unspecified deep veins of right lower extremity (CMS/HCC); Unspecified cirrhosis of liver (CMS/HCC) 06/24/2024 Lab Requisition [facility] - Main Lab [address] [place] [address] Priscilla Doan MD Unspecified viral hepatitis C 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 06/23/2024 Lab Requisition [facility] - Main Lab [address] [place] [address] Priscilla Doan MD Unspecified cirrhosis of liver (CMS/HCC) 06/18/2024 Lab Requisition [facility] Main Lab [address] [place] [address] Priscilla Doan MD Unspecified viral hepatitis C 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 06/10/2024 Lab Requisition [facility] Main Lab [address] [place] [address] Priscilla Doan MD Unspecified viral hepatitis C [...] 1-dose series) 2015 COVID-19 Vaccine (1 - season) 2024 Influenza Vaccine (#1) 2024 Abdominal [...] 08/01/2024 Diabetes: Annual GFR (Glomerular Filtration Rate) 08/19/2025 08/23/2024, 08/19/2024, 08/18/2024, Additional history exists Hypertension/CHF/CAD Annual BMP Blood Test 08/19/2025 08/23/2024, 08/19/2024, 08/18/2024, Additional history exists HIB Vaccines Aged Out [...] Associated Diagnosis Comments BASIC METABOLIC PANEL Routine 08/23/2024 5:05 AM EDT Essential (primary) hypertension COMPLETE BLOOD COUNT Routine 08/23/2024 5:05 AM EDT Essential (primary) hypertension COMPREHENSIVE METABOLIC PANEL Routine 08/19/2024 6:54 AM EDT Unspecified viral hepatitis C 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 Type 2 diabetes mellitus without complications COMPLETE BLOOD COUNT Routine 08/19/2024 6:54 AM EDT Unspecified viral hepatitis C 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 Type 2 diabetes mellitus without complications RENAL FUNCTION PANEL Routine 08/18/2024 4:58 AM EDT Unspecified cirrhosis of liver (CMS/HCC) Type 2 diabetes mellitus without complications Hypertensive chronic kidney disease with stage 1 through stage 4 chronic kidney disease, or unspecified chronic kidney disease COMPREHENSIVE METABOLIC PANEL Routine 08/18/2024 4:58 AM EDT Unspecified cirrhosis of liver (CMS/HCC) Type 2 diabetes mellitus without complications Hypertensive chronic kidney disease with stage 1 through stage 4 chronic kidney disease, or unspecified chronic kidney disease COMPLETE BLOOD COUNT Routine 08/18/2024 4:58 AM EDT Unspecified cirrhosis of liver (CMS/HCC) Type 2 diabetes mellitus without complications Hypertensive chronic kidney disease with stage 1 through stage 4 chronic kidney disease, or unspecified chronic kidney disease COMPREHENSIVE METABOLIC PANEL Routine 08/12/2024 5:30 AM EDT Type 2 diabetes mellitus without complications Unspecified viral hepatitis C 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 COMPLETE BLOOD COUNT Routine 08/12/2024 5:30 AM EDT Type 2 diabetes mellitus without complications Unspecified viral hepatitis C 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 WBC 5.8 4.8 - 10.8 K/mcL LAB [...] g/dL LAB HEMETOLOGY METHOD 08/23/2024 10:45 AM EDT [facility] RDW 15.6(H) 11.0 - 15.0 % LAB HEMETOLOGY METHOD 08/23/2024 10:45 AM EDT [facility] Platelets 243 130 - 400 K/mcL LAB HEMETOLOGY METHOD 08/23/2024 10:45 AM EDT [facility] MPV 9.8 7.0 - 11.0 FL LAB HEMETOLOGY METHOD 08/23/2024 10:45 AM EDT [facility] NRBC 0.0 <1.0 % LAB HEMETOLOGY METHOD 08/23/2024 10:45 AM EDT [facility] NRBC Absolute 0.00 <0.10 K/mcL LAB HEMETOLOGY METHOD 08/23/2024 10:45 AM EDT [facility] Blood Venous blood specimen / Unknown Venipuncture / Unknown 08/23/2024 5:05 AM EDT 08/23/2024 10:01 AM EDT Priscilla Doan MD LAB BLOOD ORDERABLES Fin al Result [facility] [address] [place] [address], * (ABNORMAL) Basic metabolic panel (08/23/2024 5:05 AM EDT) Only the most recent of4 resultswithin the time period is included. Sodium 133 133 - 145 mmol/L LAB CHEMISTRY METHOD 08/23/2024 11:42 AM EDT [facility] Potassium 5.9(H) 3.5 - 5.5 mmol/L LAB CHEMISTRY METHOD 08/23/2024 11:42 AM EDT [facility] Chloride 99 96 - 110 mmol/L LAB CHEMISTRY METHOD 08/23/2024 11:42 AM EDT [facility] CO2 26 21 - [...] MD LAB BLOOD ORDERABLES Fin al Result [facility] [address] [place] [address], * (ABNORMAL) Comprehensive metabolic panel (08/19/2024 6:54 AM EDT) Only the most recent of14 resultswithin the time period is included. Sodium 132(L) 133 - 145 mmol/L LAB CHEMISTRY METHOD 08/19/2024 11:58 AM [facility] Potassium 5.5 3.5 - 5.5 mmol/L LAB CHEMISTRY METHOD 08/19/2024 11:58 AM [facility] Chloride 99 96 - 110 mmol/L LAB CHEMISTRY METHOD 08/19/2024 11:58 AM [facility] CO2 27 21 - 32 mmol/L LAB CHEMISTRY METHOD 08/19/2024 11:58 AM [facility] Anion Gap 6 3 - 11 LAB CHEMISTRY METHOD 08/19/2024 11:58 AM [facility] Glucose 81 70 - 100 mg/dL LAB CHEMISTRY METHOD 08/19/2024 11:58 AM [facility] BUN 42(H) 5 - 25 mg/dL LAB CHEMISTRY METHOD 08/19/2024 11:58 AM [facility] Creatinine 1.64(H) 0.70 - 1.30 mg/dL LAB CHEMISTRY METHOD 08/19/2024 11:58 AM [facility] eGFR 45(L) >=60 mL/min/1. 73m2 LAB CHEMISTRY METHOD 08/19/2024 11:58 AM [facility] Comment:Calculation based on the??Chronic Kidney Disease Epidemiology Collaboration (CKD-EPI) equation refit??without adjustment for race. BUN/Creatinine Ratio 25.6 LAB CHEMISTRY METHOD 08/19/2024 11:58 AM [facility] Calcium 8.5 8.5 - 10.5 mg/dL LAB CHEMISTRY METHOD 08/19/2024 11:58 AM [facility] AST (SGOT) 23 10 - 42 unit/L LAB CHEMISTRY METHOD 08/19/2024 11:58 AM [facility] ALT (SGPT) 23 10 - 60 unit/L LAB CHEMISTRY METHOD 08/19/2024 11:58 AM [facility] Alkaline Phosphatase 77 42 - 121 unit/L LAB CHEMISTRY METHOD 08/19/2024 11:58 AM EDT [facility] Total Protein 5.4(L) 6.0 - 8.0 g/dL LAB CHEMISTRY METHOD 08/19/2024 11:58 AM T [facility] Albumin 1.8(L) 3.2 - 5.0 g/dL LAB CHEMISTRY METHOD 08/19/2024 11:58 AM [facility] Total Bilirubin 0.2 0.0 - 1.4 mg/dL LAB CHEMISTRY METHOD 08/19/2024 11:58 AM [facility] Blood Venous blood specimen / Unknown Venipuncture / Unknown 08/19/2024 6:54 AM EDT 08/19/2024 10:39 AM EDT Priscilla Doan MD LAB BLOOD ORDERABLES Fin al Result [facility] [address] [place] [address], * (ABNORMAL) Renal function panel (08/18/2024 4:58 AM EDT) Sodium 131(L) 133 - 145 mmol/L LAB CHEMISTRY METHOD 08/18/2024 11:55 AM [facility] Potassium 6.3(HH) 3.5 - 5.5 mmol/L LAB CHEMISTRY METHOD 08/18/2024 11:55 AM [facility] Chloride 97 96 - 110 mmol/L LAB CHEMISTRY METHOD 08/18/2024 11:55 AM [facility] CO2 28 21 - 32 mmol/L LAB CHEMISTRY METHOD 08/18/2024 11:55 AM [facility] Anion Gap 6 3 - 11 LAB CHEMISTRY METHOD 08/18/2024 11:55 AM T [facility] Glucose 135(H) 70 - 100 mg/dL LAB CHEMISTRY METHOD 08/18/2024 11:55 AM [facility] BUN 41(H) 5 - 25 mg/dL LAB CHEMISTRY METHOD 08/18/2024 11:55 AM [facility] Creatinine 1.41(H) 0.70 - 1.30 mg/dL LAB CHEMISTRY METHOD 08/18/2024 11:55 AM [facility] eGFR 54(L) >=60 mL/min/1. 73m2 LAB CHEMISTRY METHOD 08/18/2024 11:55 AM [facility] Comment:Calculation based on the??Chronic Kidney Disease Epidemiology Collaboration (CKD-EPI) equation refit??without adjustment for race. BUN/Creatinine Ratio 29.1 LAB CHEMISTRY METHOD 08/18/2024 11:55 AM [facility] Albumin 2.0(L) 3.2 - 5.0 g/dL LAB CHEMISTRY METHOD 08/18/2024 11:55 AM [facility] Calcium 8.6 8.5 - 10.5 mg/dL LAB CHEMISTRY METHOD 08/18/2024 11:55 AM [facility] Phosphorus 3.4 2.5 - 4.5 mg/dL LAB CHEMISTRY METHOD 08/18/2024 11:55 AM [facility] Blood Venous blood specimen / Unknown Venipuncture / Unknown 08/18/2024 4:58 AM EDT 08/18/2024 10:15 AM EDT us Priscilla Doan MD LAB BLOOD ORDERABLES Fin al Result [facility] [address] [place] [address], * Hemoglobin A1c (08/01/2024 9:23 AM EDT) Hemoglobin A1C 5.8 <6.5 % LAB CHEMISTRY METHOD 08/01/2024 1:50 PM EDT [facility] Mean Bld Glu Estim. 120 mg/dL LAB CHEMISTRY METHOD 08/01/2024 1:50 PM EDT [facility] Blood Venous blood specimen / Unknown Venipuncture / Unknown 08/01/2024 9:23 AM EDT 08/01/2024 10:44 AM EDT Priscilla Doan MD LAB BLOOD ORDERABLES Fin al Result Performing Organization Address City/[facility]/ZIP Co de Phone Number [facility] [address] [place] [address], [place] [phone] * Ammonia (06/23/2024 7:56 AM EST) [facility] Ammonia 18 11 - 35 mcmol/L LAB CHEMISTRY METHOD 06/23/2024 9:33 AM EST [facility] Blood Venous blood specimen / Unknown Venipuncture / Unknown 06/23/2024 7:56 AM EST 06/23/2024 9:05 AM EST Priscilla Doan MD LAB BLOOD ORDERABLES Fin al Result Performing Organization Address City/[facility]/ZIP Co de Phone Number [facility] [address] [place] [address], [place] [phone] from Last 3 Months Insurance MEDICARE MEDICAID - [place] Care Teams Pantry Goods Worker Relationship Specialty Start Date End Date Priscilla Doan MD [address] [address] PCP - General Family Medicine 06/18/24
--- OUTSIDE RECORDS SUMMARY | 2024-08-23 17:18 | XMS_ITS | Encounter Summary ---
[facility] Address [address] [place] [address] Care Team Providers Care Environmental Services Project Manager Name Role Phone Priscilla Doan MD Primary Care Provider + Encounter Details Date Type Department Care Team (Late st Contact Info) Description 07/09/2024 Lab Requisition [facility] - Main Lab [address] [facility] [place] [address] Priscilla Doan MD [address] [address] Unspecified viral hepatitis C 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 [...] LAB CHEMISTRY METHOD 07/11/2024 10:57 AM EST [facility] Potassium 5.8(H) 3.5 - 5.5 mmol/L LAB CHEMISTRY METHOD 07/11/2024 10:57 AM EST [facility] Chloride 108 96 - 110 mmol/L LAB CHEMISTRY METHOD 07/11/2024 10:57 AM [facility] CO2 20(L) 21 - 32 mmol/L LAB CHEMISTRY METHOD 07/11/2024 10:57 AM [facility] Anion Gap 10 3 - 11 LAB CHEMISTRY METHOD 07/11/2024 10:57 AM [facility] LAB Glucose 90 70 - 100 mg/dL LAB CHEMISTRY METHOD 07/11/2024 10:57 AM [facility] BUN 37(H) 5 - 25 mg/dL LAB CHEMISTRY METHOD 07/11/2024 10:57 AM [facility] Creatinine 1.51(H) 0.70 - 1.30 mg/dL LAB CHEMISTRY METHOD 07/11/2024 10:57 AM [facility] LAB eGFR 50(L) >=60 mL/min/1. 73m2 LAB CHEMISTRY METHOD 07/11/2024 10:57 AM [facility] LAB Comment:Calculation based on the??Chronic Kidney Disease Epidemiology Collaboration (CKD-EPI) equation refit??without adjustment for race. BUN/Creatinine Ratio 24.5 LAB CHEMISTRY METHOD 07/11/2024 10:57 AM [facility] Calcium 9.0 8.5 - 10.5 mg/dL LAB CHEMISTRY METHOD 07/11/2024 10:57 AM [facility] AST (SGOT) 19 10 - 42 unit/L LAB CHEMISTRY METHOD 07/11/2024 10:57 AM [facility] ALT (SGPT) 15 10 - 60 unit/L LAB CHEMISTRY METHOD 07/11/2024 10:57 AM [facility] Alkaline Phosphatase 62 42 - 121 unit/L LAB CHEMISTRY METHOD 07/11/2024 10:57 AM [facility] Total Protein 5.9(L) 6.0 - 8.0 g/dL LAB CHEMISTRY METHOD 07/11/2024 10:57 AM [facility] Albumin 1.9(L) 3.2 - 5.0 g/dL LAB CHEMISTRY METHOD 07/11/2024 10:57 AM EST [facility] Total Bilirubin 0.2 0.0 - 1.4 mg/dL LAB CHEMISTRY METHOD 07/11/2024 10:57 AM [facility] Blood Venous blood specimen / Unknown Venipuncture / Unknown 07/11/2024 8:26 AM EST 07/11/2024 10:09 AM EST us Priscilla Doan MD LAB BLOOD ORDERABLES Fin al Result [facility] [address] [place] [address], * (ABNORMAL) Complete blood count (07/11/2024 8:26 AM EST) WBC 5.7 4.8 - 10.8 K/mcL LAB HEMETOLOGY METHOD 07/11/2024 10:40 AM [facility] RBC 3.10(L) 4.50 - 5.50 M/mcL LAB HEMETOLOGY METHOD 07/11/2024 10:40 AM [facility] Hemoglobin 8.4(L) 13.5 - 17.5 g/dL LAB HEMETOLOGY METHOD 07/11/2024 10:40 AM [facility] Hematocrit 27.9(L) 42.0 - 54.0 % LAB HEMETOLOGY METHOD 07/11/2024 10:40 AM [facility] LAB MCV 89.7 79.0 - 98.0 FL LAB HEMETOLOGY METHOD 07/11/2024 10:40 AM [facility] MCH 27.0 27.0 - 32.0 pcg LAB HEMETOLOGY METHOD 07/11/2024 10:40 AM [facility] MCHC 30.1(L) 32.0 - 37.0 g/dL LAB HEMETOLOGY METHOD 07/11/2024 10:40 AM EST [facility] RDW 16.3(H) 11.0 - 15.0 % LAB HEMETOLOGY METHOD 07/11/2024 10:40 AM EST [facility] Platelets 159 130 - 400 K/mcL LAB HEMETOLOGY METHOD 07/11/2024 10:40 AM EST [facility] MPV 9.7 7.0 - 11.0 FL LAB HEMETOLOGY METHOD 07/11/2024 10:40 AM EST [facility] NRBC 0.0 <1.0 % LAB HEMETOLOGY METHOD 07/11/2024 10:40 AM EST [facility] NRBC Absolute 0.00 <0.10 K/mcL LAB HEMETOLOGY METHOD 07/11/2024 10:40 AM [facility] Blood Venous blood specimen / Unknown Venipuncture / Unknown 07/11/2024 8:26 AM EST 07/11/2024 10:09 AM EST us Priscilla Doan MD LAB BLOOD ORDERABLES Fin al Result [facility] [address] [place] [address], documented in this encounter Visit Diagnoses Diagnosis Unspecified viral hepatitis C 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 documented in this encounter Care Teams Environmental Services Project Manager Relationship Specialty Start Date End Date Priscilla Doan MD [address] [place] [phone] PCP - General Family Medicine 06/18/24 documented as of this encounter
--- OUTSIDE RECORDS SUMMARY | 2024-08-23 17:18 | XMS_ITS | Encounter Summary ---
Author Organization [facility] Address [address] [place] [address] Care Team Providers Care Polisher Brass Name Role Phone Priscilla Doan MD Primary Care Provider + Encounter Details Date Type Department Care Team (Late st Contact Info) Description 07/14/2024 Lab Requisition [facility] - Main Lab [address] [facility] [place] [address] Priscilla Doan MD [address] [address] Unspecified cirrhosis of liver (CMS/HCC) Social History [...] mmol/L LAB CHEMISTRY METHOD 07/14/2024 11:41 AM [facility] CO2 22 21 - 32 mmol/L LAB CHEMISTRY METHOD 07/14/2024 11:41 AM [facility] Anion Gap 8 3 - 11 LAB CHEMISTRY METHOD 07/14/2024 11:41 AM [facility] Glucose 95 70 - 100 mg/dL LAB CHEMISTRY METHOD 07/14/2024 11:41 AM [facility] BUN 45(H) 5 - 25 mg/dL LAB CHEMISTRY METHOD 07/14/2024 11:41 AM [facility] Creatinine 1.63(H) 0.70 - 1.30 mg/dL LAB CHEMISTRY METHOD 07/14/2024 11:41 AM [facility] eGFR 46(L) >=60 mL/min/1. 73m2 LAB CHEMISTRY METHOD 07/14/2024 11:41 AM [facility] Comment:Calculation based on the??Chronic Kidney Disease Epidemiology Collaboration (CKD-EPI) equation refit??without adjustment for race. BUN/Creatinine Ratio 27.6 LAB CHEMISTRY METHOD 07/14/2024 11:41 AM [facility] Calcium 9.2 8.5 - 10.5 mg/dL LAB CHEMISTRY METHOD 07/14/2024 11:41 AM [facility] AST (SGOT) 21 10 - 42 unit/L LAB CHEMISTRY METHOD 07/14/2024 11:41 AM [facility] ALT (SGPT) 18 10 - 60 unit/L LAB CHEMISTRY METHOD 07/14/2024 11:41 AM [facility] Alkaline Phosphatase 70 42 - 121 unit/L LAB CHEMISTRY METHOD 07/14/2024 11:41 AM [facility] Total Protein 6.2 6.0 - 8.0 g/dL LAB CHEMISTRY METHOD 07/14/2024 11:41 AM [facility] Albumin 2.0(L) 3.2 - 5.0 g/dL LAB CHEMISTRY METHOD 07/14/2024 11:41 AM EST [facility] Total Bilirubin 0.2 0.0 - 1.4 mg/dL LAB CHEMISTRY METHOD 07/14/2024 11:41 AM [facility] Blood Venous blood specimen / Unknown Venipuncture / Unknown 07/14/2024 6:10 AM EST 07/14/2024 10:13 AM EST us Priscilla Doan MD LAB BLOOD ORDERABLES Fin al Result [facility] [address] [place] [address], * (ABNORMAL) Complete blood count (07/14/2024 6:10 AM EST) WBC 6.8 4.8 - 10.8 K/mcL LAB HEMETOLOGY METHOD 07/14/2024 11:13 AM [facility] RBC 3.20(L) 4.50 - 5.50 M/mcL LAB HEMETOLOGY METHOD 07/14/2024 11:13 AM [facility] Hemoglobin 8.7(L) 13.5 - 17.5 g/dL LAB HEMETOLOGY METHOD 07/14/2024 11:13 AM [facility] Hematocrit 29.3(L) 42.0 - 54.0 % LAB HEMETOLOGY METHOD 07/14/2024 11:13 AM [facility] MCV 91.0 79.0 - 98.0 FL LAB HEMETOLOGY METHOD 07/14/2024 11:13 AM [facility] MCH 27.0 27.0 - 32.0 pcg LAB HEMETOLOGY METHOD 07/14/2024 11:13 AM [facility] MCHC 29.7(L) 32.0 - 37.0 g/dL LAB HEMETOLOGY METHOD 07/14/2024 11:13 AM EST [facility] RDW 16.3(H) 11.0 - 15.0 % LAB HEMETOLOGY METHOD 07/14/2024 11:13 AM EST [facility] Platelets 197 130 - 400 K/mcL LAB HEMETOLOGY METHOD 07/14/2024 11:13 AM [facility] MPV 10.0 7.0 - 11.0 FL LAB HEMETOLOGY METHOD 07/14/2024 11:13 AM EST [facility] NRBC 0.0 <1.0 % LAB HEMETOLOGY METHOD 07/14/2024 11:13 AM EST [facility] NRBC Absolute 0.00 <0.10 K/mcL LAB HEMETOLOGY METHOD 07/14/2024 11:13 AM [facility] Blood Venous blood specimen / Unknown Venipuncture / Unknown 07/14/2024 6:10 AM EST 07/14/2024 10:13 AM EST us Priscilla Doan MD LAB BLOOD ORDERABLES Fin al Result [facility] [address] [place] [address], documented in this encounter Visit Diagnoses Diagnosis Unspecified cirrhosis of liver (CMS/HCC) documented in this encounter Care Teams Polisher Brass Relationship Specialty Start Date End Date Priscilla Doan MD [address] [address] PCP - General Family Medicine 06/18/24 documented as of this encounter
--- OUTSIDE RECORDS SUMMARY | 2024-08-23 17:18 | XMS_ITS | Encounter Summary ---
Author Organization [facility] Address [address] [place] [address] Care Team Providers Care Environmental Services Attendant Name Role Phone Priscilla Doan MD Primary Care Provider + Encounter Details Date Type Department Care Team (Late st Contact Info) Description 07/15/2024 Lab Requisition [facility] - Main Lab [address] [facility] [place] [address] Priscilla Doan MD [address] [address] Unspecified viral hepatitis C 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 [...] in this encounter Care Teams Environmental Services Attendant Relationship Specialty Start Date End Date Priscilla Doan MD [address] [place] [id number] PCP - General Family Medicine 06/18/24 documented as of this encounter
--- OUTSIDE RECORDS SUMMARY | 2024-08-23 17:18 | XMS_ITS | Encounter Summary ---
Author Organization [employer] Address [address] [place] [address] Care Team Providers Care Commissioned Security Officer Name Role Phone Priscilla Doan MD Primary Care Provider + Encounter Details Date Type Department Care Team (Late st Contact Info) Description 08/18/[address] [facility] - Main Lab 299 [facility] [place] [address] Priscilla Doan MD [address] [phone] Unspecified cirrhosis of liver (CMS/HCC); Type 2 diabetes mellitus without complications (CMS/HCC); Hypertensive chronic kidney disease with stage 1 through stage 4 chronic kidney disease, or unspecified chronic kidney disease Social History Tobacco Use Types Packs/Day Years [...] Associated Diagnosis Comments COMPLETE BLOOD COUNT Routine 08/18/2024 4:58 AM EDT Unspecified cirrhosis of liver (CMS/HCC) Type 2 diabetes mellitus without complications Hypertensive chronic kidney disease with stage 1 through stage 4 chronic kidney disease, or unspecified chronic kidney disease RENAL FUNCTION PANEL Routine 08/18/2024 4:58 AM [...] kidney disease, or unspecified chronic kidney disease documented in this encounter Results * (ABNORMAL) Renal function panel (08/18/2024 4:58 AM EDT) Sodium 131(L) 133 - 145 mmol/L LAB CHEMISTRY METHOD 08/18/2024 11:[address] [facility] Potassium 6.3(HH) 3.5 - 5.5 mmol/L LAB CHEMISTRY METHOD 08/18/2024 11:[address] [facility] Chloride 97 96 - 110 mmol/L LAB CHEMISTRY METHOD 08/18/2024 11:[address] [facility] CO2 28 21 - 32 mmol/L LAB CHEMISTRY METHOD 08/18/2024 11:[address] [facility] Anion Gap 6 3 - 11 LAB CHEMISTRY METHOD 08/18/2024 11:[address] [facility] Glucose 135(H) 70 - 100 mg/dL LAB CHEMISTRY METHOD 08/18/2024 11:[address] [facility] BUN 41(H) 5 - 25 mg/dL LAB CHEMISTRY METHOD 08/18/2024 11:[address] [facility] Creatinine 1.41(H) 0.70 - 1.30 mg/dL LAB CHEMISTRY METHOD 08/18/2024 11:[address] [facility] eGFR 54(L) >=60 mL/min/1. 73m2 LAB CHEMISTRY METHOD 08/18/2024 11:[address] [facility] Comment:Calculation based on the??Chronic Kidney Disease Epidemiology Collaboration (CKD-EPI) equation refit??without adjustment for race. BUN/Creatinine Ratio 29.1 LAB CHEMISTRY METHOD 08/18/2024 11:[address] [facility] Albumin 2.0(L) 3.2 - 5.0 g/dL LAB CHEMISTRY METHOD 08/18/2024 11:55 AM EDT [facility] Calcium 8.6 8.5 - 10.5 mg/dL LAB CHEMISTRY METHOD 08/18/2024 11:55 AM T [facility] Phosphorus 3.4 2.5 - 4.5 mg/dL LAB CHEMISTRY METHOD 08/18/2024 11:[address] [facility] Blood Venous blood specimen / Unknown Venipuncture / Unknown 08/18/2024 4:58 AM EDT 08/18/2024 10:15 AM EDT us Priscilla Doan MD LAB BLOOD ORDERABLES Fin al Result [facility] [address] [place] [address], [place] [phone] * (ABNORMAL) Comprehensive metabolic panel (08/18/2024 4:58 AM EDT) Sodium 131(L) 133 - 145 mmol/L LAB CHEMISTRY METHOD 08/18/2024 11:[address] [facility] Potassium 6.3(HH) 3.5 - 5.5 mmol/L LAB CHEMISTRY METHOD 08/18/2024 11:[address] [facility] Chloride 97 96 - 110 mmol/L LAB CHEMISTRY METHOD 08/18/2024 11:[address] [facility] CO2 28 21 - 32 mmol/L LAB CHEMISTRY METHOD 08/18/2024 11:[address] [facility] Anion Gap 6 3 - 11 LAB CHEMISTRY METHOD 08/18/2024 11:[address] [facility] Glucose 135(H) 70 - 100 mg/dL LAB CHEMISTRY METHOD 08/18/2024 11:[address] [facility] BUN 41(H) 5 - 25 mg/dL LAB CHEMISTRY METHOD 08/18/2024 11:[address] [facility] Creatinine 1.41(H) 0.70 - 1.30 mg/dL LAB CHEMISTRY METHOD 08/18/2024 11:[address] [facility] eGFR 54(L) >=60 mL/min/1. 73m2 LAB CHEMISTRY METHOD 08/18/2024 11:[address] [facility] Comment: Calculation based on the??Chronic Kidney Disease Epidemiology Collaboration (CKD-EPI) equation refit??without adjustment for race. Calculation based on the??Chronic Kidney Disease Epidemiology Collaboration (CKD-EPI) equation refit??without adjustment for race. BUN/Creatinine Ratio 29.1 LAB CHEMISTRY METHOD 08/18/2024 11:[address] [facility] Calcium 8.6 8.5 - 10.5 mg/dL LAB CHEMISTRY METHOD 08/18/2024 11:[address] [facility] AST (SGOT) 20 10 - 42 unit/L LAB CHEMISTRY METHOD 08/18/2024 11:[address] [facility] ALT (SGPT) 21 10 - 60 unit/L LAB CHEMISTRY METHOD 08/18/2024 11:[address] [facility] Alkaline Phosphatase 80 42 - 121 unit/L LAB CHEMISTRY METHOD 08/18/2024 11:[address] [facility] Total Protein 5.8(L) 6.0 - 8.0 g/dL LAB CHEMISTRY METHOD 08/18/2024 11:[address] [facility] Albumin 2.0(L) 3.2 - 5.0 g/dL LAB CHEMISTRY METHOD 08/18/2024 11:[address] [facility] Total Bilirubin 0.2 0.0 - 1.4 mg/dL LAB CHEMISTRY METHOD 08/18/2024 11:[address] [facility] Blood Venous blood specimen / Unknown Venipuncture / Unknown 08/18/2024 4:58 AM EDT 08/18/2024 10:15 AM EDT us Priscilla Doan MD LAB BLOOD ORDERABLES Fin al Result [facility] [address] [place] [address], * (ABNORMAL) Complete blood count (08/18/2024 4:58 AM EDT) [facility] Signature WBC 6.9 4.8 - 10.8 K/mcL LAB HEMETOLOGY METHOD 08/18/2024 10:26 AM EDT [facility] RBC 2.80(L) 4.50 - 5.50 M/mcL LAB HEMETOLOGY METHOD 08/18/2024 10:[address] [facility] Hemoglobin 7.6(L) 13.5 - 17.5 g/dL LAB HEMETOLOGY METHOD 08/18/2024 10:[address] [facility] Hematocrit 25.1(L) 42.0 - 54.0 % LAB HEMETOLOGY METHOD 08/18/2024 10:[address] [facility] MCV 89.6 79.0 - 98.0 FL LAB HEMETOLOGY METHOD 08/18/2024 10:[address] [facility] MCH 27.1 27.0 - 32.0 pcg LAB HEMETOLOGY METHOD 08/18/2024 10:[address] [facility] MCHC 30.3(L) 32.0 - 37.0 g/dL LAB HEMETOLOGY METHOD 08/18/2024 10:[address] [facility] RDW 15.3(H) 11.0 - 15.0 % LAB HEMETOLOGY METHOD 08/18/2024 10:[address] [facility] Platelets 242 130 - 400 K/mcL LAB HEMETOLOGY METHOD 08/18/2024 10:[address] [facility] MPV 10.3 7.0 - 11.0 FL LAB HEMETOLOGY METHOD 08/18/2024 10:26 AM EDT [facility] NRBC 0.0 <1.0 % LAB HEMETOLOGY METHOD 08/18/2024 10:26 AM EDT [facility] NRBC Absolute 0.00 <0.10 K/mcL LAB HEMETOLOGY METHOD 08/18/2024 10:26 AM EDT [facility] Blood Venous blood specimen / Unknown Venipuncture / Unknown 08/18/2024 4:58 AM EDT 08/18/2024 10:15 AM EDT us Priscilla Doan MD LAB BLOOD ORDERABLES Fin al Result [facility] [address] [place] [address], documented in this encounter Visit Diagnoses Diagnosis Unspecified cirrhosis of liver (CMS/HCC) Type 2 diabetes mellitus without complications Hypertensive chronic kidney disease with stage 1 through stage 4 chronic kidney disease, or unspecified chronic kidney disease documented in this encounter Care Teams Commissioned Security Officer Relationship Specialty Start Date End Date Priscilla Doan MD [address] [place] [phone] PCP - General Family Medicine 06/18/24 documented as of this encounter
--- OUTSIDE RECORDS SUMMARY | 2024-08-23 17:18 | XMS_ITS | Encounter Summary ---
Author Organization [facility] Address [address] [place] [address] Care Team Providers Care Rn Teacher Name Role Phone Priscilla Doan MD Primary Care Provider + Encounter Details Date Type Department Care Team (Late st Contact Info) Description 08/18/2024 Lab Requisition [facility] - Main Lab 299 Pending [facility] [place] [facility] [address] Priscilla Doan MD [address] [address] Unspecified viral hepatitis C 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; [...] Associated Diagnosis Comments COMPLETE BLOOD COUNT Routine 08/19/2024 6:54 AM EDT Unspecified viral hepatitis C 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 Type 2 diabetes mellitus without complications COMPREHENSIVE METABOLIC PANEL Routine 08/19/2024 6:54 AM EDT Unspecified viral hepatitis C 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 Type 2 diabetes mellitus without complications documented in this encounter Results * (ABNORMAL) Comprehensive metabolic panel (08/19/2024 6:54 AM EDT) Sodium 132(L) 133 - 145 mmol/L LAB CHEMISTRY METHOD 08/19/2024 11:58 AM EDT [facility] Potassium 5.5 3.5 - 5.5 mmol/L LAB CHEMISTRY METHOD 08/19/2024 11:58 AM [facility] Chloride 99 96 - 110 mmol/L LAB CHEMISTRY METHOD 08/19/2024 11:58 AM [facility] CO2 27 21 - 32 mmol/L LAB CHEMISTRY METHOD 08/19/2024 11:58 AM [facility] Anion Gap 6 3 - 11 LAB CHEMISTRY METHOD 08/19/2024 11:58 AM [facility] Glucose 81 70 - 100 mg/dL LAB CHEMISTRY METHOD 08/19/2024 11:58 AM [facility] BUN 42(H) 5 - 25 mg/dL LAB CHEMISTRY METHOD 08/19/2024 11:58 AM [facility] Creatinine 1.64(H) 0.70 - 1.30 mg/dL LAB CHEMISTRY METHOD 08/19/2024 11:58 AM [facility] eGFR 45(L) >=60 mL/min/1. 73m2 LAB CHEMISTRY METHOD 08/19/2024 11:58 AM [facility] Comment:Calculation based on the??Chronic Kidney Disease Epidemiology Collaboration (CKD-EPI) equation refit??without adjustment for race. BUN/Creatinine Ratio 25.6 LAB CHEMISTRY METHOD 08/19/2024 11:58 AM [facility] Calcium 8.5 8.5 - 10.5 mg/dL LAB CHEMISTRY METHOD 08/19/2024 11:58 AM [facility] AST (SGOT) 23 10 - 42 unit/L LAB CHEMISTRY METHOD 08/19/2024 11:58 AM [facility] ALT (SGPT) 23 10 - 60 unit/L LAB CHEMISTRY METHOD 08/19/2024 11:58 AM [facility] Alkaline Phosphatase 77 42 - 121 unit/L LAB CHEMISTRY METHOD 08/19/2024 11:58 AM [facility] Total Protein 5.4(L) 6.0 - 8.0 g/dL LAB CHEMISTRY METHOD 08/19/2024 11:58 AM EDT [facility] Albumin 1.8(L) 3.2 - 5.0 g/dL LAB CHEMISTRY METHOD 08/19/2024 11:58 AM EDT [facility] Total Bilirubin 0.2 0.0 - 1.4 mg/dL LAB CHEMISTRY METHOD 08/19/2024 11:58 AM EDT [facility] Blood Venous blood specimen / Unknown Venipuncture / Unknown 08/19/2024 6:54 AM EDT 08/19/2024 10:39 AM EDT us Priscilla Doan MD LAB BLOOD ORDERABLES Fin al Result [facility] [address] [place] [address], * (ABNORMAL) Complete blood count (08/19/2024 6:54 AM EDT) WBC 6.3 4.8 - 10.8 K/mcL LAB HEMETOLOGY METHOD 08/19/2024 10:59 AM EDT [facility] RBC 2.60(L) 4.50 - 5.50 M/mcL LAB HEMETOLOGY METHOD 08/19/2024 10:59 AM T [facility] Hemoglobin 7.3(L) 13.5 - 17.5 g/dL LAB HEMETOLOGY METHOD 08/19/2024 10:59 AM EDT [facility] Hematocrit 23.8(L) 42.0 - 54.0 % LAB HEMETOLOGY METHOD 08/19/2024 10:59 AM EDT [facility] MCV 90.2 79.0 - 98.0 FL LAB HEMETOLOGY METHOD [facility] MCH 27.7 27.0 - 32.0 pcg LAB HEMETOLOGY METHOD 08/19/2024 10:59 AM EDT [facility] MCHC 30.7(L) 32.0 - 37.0 g/dL LAB HEMETOLOGY METHOD 08/19/2024 10:59 AM EDT [facility] RDW 15.6(H) 11.0 - 15.0 % LAB HEMETOLOGY METHOD 08/19/2024 10:59 AM EDT [facility] Platelets 234 130 - 400 K/mcL LAB HEMETOLOGY METHOD 08/19/2024 10:59 AM EDT [facility] MPV 10.0 7.0 - 11.0 FL LAB HEMETOLOGY METHOD 08/19/2024 10:59 AM EDT [facility] NRBC 0.0 <1.0 % LAB HEMETOLOGY METHOD 08/19/2024 10:59 AM EDT [facility] NRBC Absolute 0.00 <0.10 K/mcL LAB HEMETOLOGY METHOD 08/19/2024 10:59 AM EDT [facility] Blood Venous blood specimen / Unknown Venipuncture / Unknown 08/19/2024 6:54 AM EDT 08/19/2024 10:39 AM EDT us Priscilla Doan MD LAB BLOOD ORDERABLES Fin al Result [facility] [address] [place] [address], documented in this encounter Visit Diagnoses Diagnosis Unspecified viral hepatitis C 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 Type 2 diabetes mellitus without complications documented in this encounter Care Teams Rn Teacher Relationship Specialty Start Date End Date Priscilla Doan MD [address] [place] [phone] PCP - General Family Medicine 06/18/24 documented as of this encounter
--- OUTSIDE RECORDS SUMMARY | 2024-08-23 17:19 | XMS_ITS | Encounter Summary ---
Author [facility] Address [address] [place] [address] Care Team Providers Care Meat Specialist Name Role Phone Priscilla Doan MD Primary Care Provider + Encounter Details Date Type Department Care Team (Late st Contact Info) Description 06/10/2024 Lab Requisition [facility] - Main Lab 299 [facility] [place] [address] Priscilla Doan MD [address] [address] Unspecified viral hepatitis C 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 [...] LAB CHEMISTRY METHOD 06/13/2024 2:19 PM EST [facility] Potassium 5.0 3.5 - 5.5 mmol/L LAB CHEMISTRY METHOD 06/13/2024 2:19 PM EST [facility] Chloride 104 96 - 110 mmol/L LAB CHEMISTRY METHOD 06/13/2024 2:19 PM [facility] CO2 25 21 - 32 mmol/L LAB CHEMISTRY METHOD 06/13/2024 2:19 PM [facility] Anion Gap 7 3 - 11 LAB CHEMISTRY METHOD 06/13/2024 2:19 PM [facility] Glucose 96 70 - 100 mg/dL LAB CHEMISTRY METHOD 06/13/2024 2:19 PM [facility] BUN 39(H) 5 - 25 mg/dL LAB CHEMISTRY METHOD 06/13/2024 2:19 PM [facility] Creatinine 1.42(H) 0.70 - 1.30 mg/dL LAB CHEMISTRY METHOD 06/13/2024 2:19 PM [facility] eGFR 54(L) >=60 mL/min/1. 73m2 LAB CHEMISTRY METHOD 06/13/2024 2:19 PM [facility] Comment:Calculation based on the??Chronic Kidney Disease Epidemiology Collaboration (CKD-EPI) equation refit??without adjustment for race. BUN/Creatinine Ratio 27.5 LAB CHEMISTRY METHOD 06/13/2024 2:19 PM [facility] Calcium 9.1 8.5 - 10.5 mg/dL LAB CHEMISTRY METHOD 06/13/2024 2:19 PM [facility] AST (SGOT) 65(H) 10 - 42 unit/L LAB CHEMISTRY METHOD 06/13/2024 2:19 PM [facility] ALT (SGPT) 69(H) 10 - 60 unit/L LAB CHEMISTRY METHOD 06/13/2024 2:19 PM [facility] Alkaline Phosphatase 140(H) 42 - 121 unit/L LAB CHEMISTRY METHOD 06/13/2024 2:19 PM [facility] Total Protein 5.9(L) 6.0 - 8.0 g/dL LAB CHEMISTRY METHOD 06/13/2024 2:19 PM [facility] Albumin 2.0(L) 3.2 - 5.0 g/dL LAB CHEMISTRY METHOD 06/13/2024 2:19 PM EST [facility] Total Bilirubin 0.3 0.0 - 1.4 mg/dL LAB CHEMISTRY METHOD 06/13/2024 2:19 PM [facility] Blood Venous blood specimen / Unknown Venipuncture / Unknown 06/13/2024 9:56 AM EST 06/13/2024 12:25 PM EST us Priscilla Doan MD LAB BLOOD ORDERABLES Fin al Result [facility] [address] [place] [address], * (ABNORMAL) Complete blood count (06/13/2024 9:56 AM EST) WBC 6.1 4.8 - 10.8 K/mcL LAB HEMETOLOGY METHOD 06/13/2024 1:31 PM [facility] RBC 3.40(L) 4.50 - 5.50 M/mcL LAB HEMETOLOGY METHOD 06/13/2024 1:31 PM [facility] Hemoglobin 9.3(L) 13.5 - 17.5 g/dL LAB HEMETOLOGY METHOD 06/13/2024 1:31 PM [facility] Hematocrit 30.0(L) 42.0 - 54.0 % LAB HEMETOLOGY METHOD 06/13/2024 1:31 PM [facility] MCV 88.8 79.0 - 98.0 FL LAB HEMETOLOGY METHOD 06/13/2024 1:31 PM [facility] MCH 27.5 27.0 - 32.0 pcg LAB HEMETOLOGY METHOD 06/13/2024 1:31 PM [facility] MCHC 31.0(L) 32.0 - 37.0 g/dL LAB HEMETOLOGY METHOD 06/13/2024 1:31 PM EST [facility] RDW 16.5(H) 11.0 - 15.0 % LAB HEMETOLOGY METHOD 06/13/2024 1:31 PM EST [facility] Platelets 254 130 - 400 K/mcL LAB HEMETOLOGY METHOD 06/13/2024 1:31 PM [facility] MPV 9.8 7.0 - 11.0 FL LAB HEMETOLOGY METHOD 06/13/2024 1:31 PM EST [facility] NRBC 0.0 <1.0 % LAB HEMETOLOGY METHOD 06/13/2024 1:31 PM EST [facility] NRBC Absolute 0.00 <0.10 K/mcL LAB HEMETOLOGY METHOD 06/13/2024 1:31 PM [facility] Blood Venous blood specimen / Unknown Venipuncture / Unknown 06/13/2024 9:56 AM EST 06/13/2024 12:25 PM EST us Priscilla Doan MD LAB BLOOD ORDERABLES Fin al Result [facility] [address] [place] [address], documented in this encounter Visit Diagnoses Diagnosis Unspecified viral hepatitis C 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
--- OUTSIDE RECORDS SUMMARY | 2024-08-23 17:19 | XMS_ITS | Encounter Summary ---
Author Organization [facility] Address [address] [place] [address] Care Team Providers Care Boom Truck Driver Name Role Phone Priscilla Doan MD Primary Care Provider + Encounter Details Date Type Department Care Team (Late st Contact Info) Description 07/28/[address] [facility] - Main Lab 299 [facility] [place] [address] Prisiclla Doan MD 8[address] [facility] [address] [place] [address] Unspecified viral hepatitis C 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; [...] LAB CHEMISTRY METHOD 2024 12:36 PM EST [facility] Potassium 5.6(H) 3.5 - 5.5 mmol/L LAB CHEMISTRY METHOD 2024 12:36 PM [facility] Chloride 104 96 - 110 mmol/L LAB CHEMISTRY METHOD 2024 12:36 PM [facility] CO2 22 21 - 32 mmol/L LAB CHEMISTRY METHOD 2024 12:36 PM [facility] Anion Gap 11 3 - 11 LAB CHEMISTRY METHOD 2024 12:36 PM [facility] Glucose 132(H) 70 - 100 mg/dL LAB CHEMISTRY METHOD 2024 12:36 PM [facility] BUN 34(H) 5 - 25 mg/dL LAB CHEMISTRY METHOD 2024 12:36 PM [facility] Creatinine 1.26 0.70 - 1.30 mg/dL LAB CHEMISTRY METHOD 2024 12:36 PM [facility] eGFR 62 >=60 mL/min/1. 73m2 LAB CHEMISTRY METHOD 2024 12:36 PM [facility] Comment:Calculation based on the??Chronic Kidney Disease Epidemiology Collaboration (CKD-EPI) equation refit??without adjustment for race. BUN/Creatinine Ratio 27.0 LAB CHEMISTRY METHOD 2024 12:36 PM [facility] Calcium 8.7 8.5 - 10.5 mg/dL LAB CHEMISTRY METHOD 2024 12:36 PM [facility] AST (SGOT) 19 10 - 42 unit/L LAB CHEMISTRY METHOD 2024 12:36 PM [facility] ALT (SGPT) 18 10 - 60 unit/L LAB CHEMISTRY METHOD 2024 12:36 PM [facility] Alkaline Phosphatase 66 42 - 121 unit/L LAB CHEMISTRY METHOD 2024 12:36 PM [facility] Total Protein 5.9(L) 6.0 - 8.0 g/dL LAB CHEMISTRY METHOD 2024 12:36 PM [facility] Albumin 2.1(L) 3.2 - 5.0 g/dL LAB CHEMISTRY METHOD 2024 12:36 PM [facility] Total Bilirubin 0.2 0.0 - 1.4 mg/dL LAB CHEMISTRY METHOD 2024 12:36 PM [facility] Blood Venous blood specimen / Unknown Venipuncture / Unknown 2024 9:00 AM EST 2024 11:03 AM EST us Priscilla Doan MD LAB BLOOD ORDERABLES Fin al Result [facility] [address] [place] [address], * (ABNORMAL) Complete blood count (2024 9:00 AM EST) WBC 5.9 4.8 - 10.8 K/mcL LAB HEMETOLOGY METHOD 2024 11:35 AM [facility] RBC 3.10(L) 4.50 - 5.50 M/[facility] LAB HEMETOLOGY METHOD 2024 11:35 AM [facility] Hemoglobin 8.6(L) 13.5 - 17.5 g/dL LAB HEMETOLOGY METHOD 2024 11:35 AM [facility] Hematocrit 28.3(L) 42.0 - 54.0 % LAB HEMETOLOGY METHOD 2024 11:35 AM [facility] MCV 91.3 79.0 - 98.0 FL LAB HEMETOLOGY METHOD 2024 11:35 AM [facility] MCH 27.7 27.0 - 32.0 pcg LAB HEMETOLOGY METHOD 2024 11:35 AM EST [facility] MCHC 30.4(L) 32.0 - 37.0 g/dL LAB HEMETOLOGY METHOD 2024 11:35 AM [facility] RDW 15.4(H) 11.0 - 15.0 % LAB HEMETOLOGY METHOD 2024 11:35 AM [facility] Platelets 206 130 - 400 K/mcL LAB HEMETOLOGY METHOD 2024 11:35 AM [facility] MPV 9.9 7.0 - 11.0 FL LAB HEMETOLOGY METHOD 2024 11:35 AM [facility] NRBC 0.0 <1.0 % LAB HEMETOLOGY METHOD 2024 11:35 AM [facility] NRBC Absolute 0.00 <0.10 K/mcL LAB HEMETOLOGY METHOD 2024 11:35 AM [facility] Blood Venous blood specimen / Unknown Venipuncture / Unknown 2024 9:00 AM EST 2024 11:03 AM EST Priscilla Doan MD LAB BLOOD ORDERABLES Fin al Result [facility] [address] [place] [address], documented in this encounter Visit Diagnoses Diagnosis Unspecified viral hepatitis C 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 Type 2 diabetes mellitus without complications documented in this encounter Care Teams Boom Truck Driver Relationship Specialty Start Date End Date Priscilla oDan MD [address] [place] [id number] PCP - General Family Medicine 06/18/24 documented as of this encounter
--- OUTSIDE RECORDS SUMMARY | 2024-08-23 17:19 | XMS_ITS | Encounter Summary ---
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; [...] mmol/L LAB CHEMISTRY METHOD 06/30/2024 9:32 AM [facility] Potassium 3.9 3.5 - 5.5 mmol/L LAB CHEMISTRY METHOD 06/30/2024 9:32 AM [facility] Chloride 109 96 - 110 mmol/L LAB CHEMISTRY METHOD 06/30/2024 9:32 AM [facility] CO2 24 21 - 32 mmol/L LAB CHEMISTRY METHOD 06/30/2024 9:32 AM [facility] Anion Gap 7 3 - 11 LAB CHEMISTRY METHOD 06/30/2024 9:32 AM [facility] Glucose 144(H) 70 - 100 mg/dL LAB CHEMISTRY METHOD 06/30/2024 9:32 AM [facility] BUN 39(H) 5 - 25 mg/dL LAB CHEMISTRY METHOD 06/30/2024 9:32 AM [facility] Creatinine 1.37(H) 0.70 - 1.30 mg/dL LAB CHEMISTRY METHOD 06/30/2024 9:32 AM [facility] eGFR 56(L) >=60 mL/min/1. 73m2 LAB CHEMISTRY METHOD 06/30/2024 9:32 AM [facility] Comment:Calculation based on the??Chronic Kidney Disease Epidemiology Collaboration (CKD-EPI) equation refit??without adjustment for race. BUN/Creatinine Ratio 28.5 LAB CHEMISTRY METHOD 06/30/2024 9:32 AM [facility] Calcium 8.1(L) 8.5 - 10.5 mg/dL LAB CHEMISTRY METHOD 06/30/2024 9:32 AM [facility] AST (SGOT) 53(H) 10 - 42 unit/L LAB CHEMISTRY METHOD 06/30/2024 9:32 AM [facility] Comment:Results verified by repeat testing ALT (SGPT) 53 10 - 60 unit/L LAB CHEMISTRY METHOD 06/30/2024 9:32 AM [facility] Comment:Results verified by repeat testing Alkaline Phosphatase 95 42 - 121 unit/L LAB CHEMISTRY METHOD 06/30/2024 9:32 AM [facility] Total Protein 5.2(L) 6.0 - 8.0 g/dL LAB CHEMISTRY METHOD 06/30/2024 9:32 AM [facility] Albumin 1.8(L) 3.2 - 5.0 g/dL LAB CHEMISTRY METHOD 06/30/2024 9:32 AM [facility] Total Bilirubin 0.2 0.0 - 1.4 mg/dL LAB CHEMISTRY METHOD 06/30/2024 9:32 AM [facility] Blood Venous blood specimen / Unknown Venipuncture / Unknown 06/30/2024 6:59 AM EST 06/30/2024 8:23 AM EST us Noman CALDERON LAB BLOOD ORDERABLES Final Re sult [facility] [address] [place] [address], * (ABNORMAL) Complete blood count (06/30/2024 6:59 AM EST) WBC 5.4 4.8 - 10.8 K/mcL LAB HEMETOLOGY METHOD 06/30/2024 8:54 AM [facility] RBC 3.20(L) 4.50 - 5.50 M/[facility] LAB HEMETOLOGY METHOD 06/30/2024 8:54 AM [facility] Hemoglobin 8.3(L) 13.5 - 17.5 g/dL LAB HEMETOLOGY METHOD 06/30/2024 8:54 AM [facility] Hematocrit 27.6(L) 42.0 - 54.0 % LAB HEMETOLOGY METHOD 06/30/2024 8:54 AM [facility] MCV 87.3 79.0 - 98.0 FL LAB HEMETOLOGY METHOD 06/30/2024 8:54 AM EST [facility] MCH 26.3(L) 27.0 - 32.0 pcg LAB HEMETOLOGY METHOD 06/30/2024 8:54 AM [facility] MCHC 30.1(L) 32.0 - 37.0 g/dL LAB HEMETOLOGY METHOD 06/30/2024 8:54 AM EST [facility] RDW 16.0(H) 11.0 - 15.0 % LAB HEMETOLOGY METHOD 06/30/2024 8:54 AM [facility] Platelets 125(L) 130 - 400 K/mcL LAB HEMETOLOGY METHOD 06/30/2024 8:54 AM [facility] MPV 11.6(H) 7.0 - 11.0 FL LAB HEMETOLOGY METHOD 06/30/2024 8:54 AM [facility] NRBC 0.0 <1.0 % LAB HEMETOLOGY METHOD 06/30/2024 8:54 AM [facility] NRBC Absolute 0.00 <0.10 K/mcL LAB HEMETOLOGY METHOD 06/30/2024 8:54 AM [facility] Blood Venous blood specimen / Unknown Venipuncture / Unknown 06/30/2024 6:59 AM EST 06/30/2024 8:23 AM EST us Noman CALDERON LAB BLOOD ORDERABLES Final Re sult [facility] [address] [place] [address], documented in this encounter Visit Diagnoses Diagnosis Unspecified viral hepatitis C 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 Acute embolism and thrombosis of unspecified deep veins of right lower extremity Unspecified cirrhosis of liver (CMS/HCC) documented in this encounter Care Teams Machine Woodworking Sander Relationship Specialty Start Date End Date Priscilla Doan MD [address] [address] PCP - General Family Medicine 06/18/24 documented as of this encounter
--- OUTSIDE RECORDS SUMMARY | 2024-08-23 17:19 | XMS_ITS | Encounter Summary ---
Author Organization [facility] Address [address] [place] [address] Care Team Providers Care Laborer Stores Name Role Phone Priscilla Doan MD Primary Care Provider + Encounter Details Date Type Department Care Team (Late st Contact Info) Description 06/23/2024 Lab Requisition [facility] - Main Lab 299 [facility] [place] [address] Priscilla Doan MD [address] [address] Unspecified cirrhosis of liver (CMS/HCC) Social History [...] LAB CHEMISTRY METHOD 06/23/2024 9:33 AM EST [facility] Blood Venous blood specimen / Unknown Venipuncture / Unknown 06/23/2024 7:56 AM EST 06/23/2024 9:05 AM EST us Priscilla Doan MD LAB BLOOD ORDERABLES Fin al Result [facility] [address] [place] [address], documented in this encounter Visit Diagnoses Diagnosis Unspecified cirrhosis of liver (CMS/HCC) documented in this encounter Care Teams Laborer Stores Relationship Specialty Start Date End Date Priscilla Doan MD [address] [address] PCP - General Family Medicine 06/18/24 documented as of this encounter
--- OUTSIDE RECORDS SUMMARY | 2024-08-23 17:19 | XMS_ITS | Encounter Summary ---
Author Organization [employer] [facility] Address [address] [place] [address] Care Team Providers Care Exhauster Name Role Phone Priscilla Daon MD Primary Care Provider + Encounter Details Date Type Department Care Team (Late st Contact Info) Description 07/26/2024 Lab Requisition [facility] - Main Lab 299 [facility] [place] [address] Priscilla Doan MD [address] [address] Type 2 diabetes mellitus without complications (CMS/HCC); [...] LAB CHEMISTRY METHOD 07/26/2024 10:19 AM EST [facility] Potassium 5.3 3.5 - 5.5 mmol/L LAB CHEMISTRY METHOD 07/26/2024 10:19 AM EST [facility] Chloride 105 96 - 110 mmol/L LAB CHEMISTRY METHOD 07/26/2024 10:19 AM [facility] CO2 23 21 - 32 mmol/L LAB CHEMISTRY METHOD 07/26/2024 10:19 AM [facility] Anion Gap 11 3 - 11 LAB CHEMISTRY METHOD 07/26/2024 10:19 AM [facility] Glucose 81 70 - 100 mg/dL LAB CHEMISTRY METHOD 07/26/2024 10:19 AM [facility] BUN 33(H) 5 - 25 mg/dL LAB CHEMISTRY METHOD 07/26/2024 10:19 AM [facility] Creatinine 1.01 0.70 - 1.30 mg/dL LAB CHEMISTRY METHOD 07/26/2024 10:19 AM [facility] eGFR 81 >=60 mL/min/1. 73m2 LAB CHEMISTRY METHOD 07/26/2024 10:19 AM [facility] Comment:Calculation based on the??Chronic Kidney Disease Epidemiology Collaboration (CKD-EPI) equation refit??without adjustment for race. BUN/Creatinine Ratio 32.7 LAB CHEMISTRY METHOD 07/26/2024 10:19 AM [facility] Calcium 8.7 8.5 - 10.5 mg/dL LAB CHEMISTRY METHOD 07/26/2024 10:19 AM [facility] Blood Venous blood specimen / Unknown Venipuncture / Unknown 07/26/2024 5:29 AM EST 07/26/2024 9:06 AM EST us Priscilla Doan MD LAB BLOOD ORDERABLES Fin al Result [facility] [address] [place] [address], documented in this encounter Visit Diagnoses Diagnosis Type 2 diabetes mellitus without complications Chronic viral hepatitis C (CMS/HCC) Chronic hepatitis C without mention of hepatic coma Chronic kidney disease, stage 3 unspecified (CMS/HCC) documented in this encounter Care Teams Exhauster Relationship Specialty Start Date End Date Priscilla Doan MD [address] [place] [address] PCP - General Family Medicine 06/18/24 documented as of this encounter
--- OUTSIDE RECORDS SUMMARY | 2024-08-23 17:19 | XMS_ITS | Encounter Summary ---
Author Organization [employer] [facility] Address [address] [place] [address] Care Team Providers Care Sales Merchandise Associate Name Role Phone Priscilla Doan MD Primary Care Provider + Encounter Details Date Type Department Care Team (Late st Contact Info) Description 07/30/2024 Lab Requisition [facility] - Main Lab 299 [facility] [place] [address] Priscilla Doan MD [address] [phone] Essential (primary) hypertension; Type 2 diabetes mellitus [...] Result [facility] [address] [place] [address], [place] [phone] * (ABNORMAL) Comprehensive metabolic panel (08/01/2024 9:23 [...] Result [facility] [address] [place] [address], * (ABNORMAL) Complete blood count (08/01/2024 9:23 AM EDT) [facility] WBC 7.2 4.8 - 10.8 K/mcL LAB [...] LAB HEMETOLOGY METHOD 08/01/2024 11:39 AM EDT [facility] Blood Venous blood specimen / Unknown Venipuncture / Unknown 08/01/2024 9:23 AM EDT 08/01/2024 10:44 AM EDT us Priscilla Doan MD LAB BLOOD ORDERABLES Fin al Result [facility] [address] [place] [address], documented in this encounter Visit Diagnoses Diagnosis Essential (primary) hypertension Unspecified essential hypertension Type 2 diabetes mellitus without complications documented in this encounter Care Teams Sales Merchandise Associate Relationship Specialty Start Date End Date Priscilla Doan MD [address] [place] [address] PCP - General Family Medicine 06/18/24 documented as of this encounter
--- OUTSIDE RECORDS SUMMARY | 2024-08-23 17:19 | XMS_ITS | Encounter Summary ---
Author Organization [facility] Address [address] [place] [address] Care Team Providers Care Order Schedule Clerk Name Role Phone Priscilla Doan MD Primary Care Provider + Encounter Details Date Type Department Care Team (Late st Contact Info) Description 07/01/[address] [facility] - Main Lab 299 [facility] [place] [address] Priscilla Doan MD [address] [address] Unspecified viral hepatitis C 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 [...] LAB CHEMISTRY METHOD 07/04/2024 2:16 PM EST [facility] Potassium 4.4 3.5 - 5.5 mmol/L LAB CHEMISTRY METHOD 07/04/2024 2:16 PM EST [facility] Chloride 106 96 - 110 mmol/L LAB CHEMISTRY METHOD 07/04/2024 2:16 PM [facility] CO2 19(L) 21 - 32 mmol/L LAB CHEMISTRY METHOD 07/04/2024 2:16 PM [facility] Anion Gap 10 3 - 11 LAB CHEMISTRY METHOD 07/04/2024 2:16 PM [facility] Glucose 130(H) 70 - 100 mg/dL LAB CHEMISTRY METHOD 07/04/2024 2:16 PM [facility] BUN 33(H) 5 - 25 mg/dL LAB CHEMISTRY METHOD 07/04/2024 2:16 PM [facility] Creatinine 1.52(H) 0.70 - 1.30 mg/dL LAB CHEMISTRY METHOD 07/04/2024 2:16 PM [facility] eGFR 50(L) >=60 mL/min/1. 73m2 LAB CHEMISTRY METHOD 07/04/2024 2:16 PM [facility] Comment:Calculation based on the??Chronic Kidney Disease Epidemiology Collaboration (CKD-EPI) equation refit??without adjustment for race. BUN/Creatinine Ratio 21.7 LAB CHEMISTRY METHOD 07/04/2024 2:16 PM [facility] Calcium 8.8 8.5 - 10.5 mg/dL LAB CHEMISTRY METHOD 07/04/2024 2:16 PM [facility] AST (SGOT) 26 10 - 42 unit/L LAB CHEMISTRY METHOD 07/04/2024 2:16 PM [facility] ALT (SGPT) 30 10 - 60 unit/L LAB CHEMISTRY METHOD 07/04/2024 2:16 PM [facility] Alkaline Phosphatase 78 42 - 121 unit/L LAB CHEMISTRY METHOD 07/04/2024 2:16 PM [facility] Total Protein 6.1 6.0 - 8.0 g/dL LAB CHEMISTRY METHOD 07/04/2024 2:16 PM [facility] Albumin 1.9(L) 3.2 - 5.0 g/dL LAB CHEMISTRY METHOD 07/04/2024 2:16 PM EST [facility] Total Bilirubin 0.3 0.0 - 1.4 mg/dL LAB CHEMISTRY METHOD 07/04/2024 2:16 PM [facility] Blood Venous blood specimen / Unknown Venipuncture / Unknown 07/04/2024 9:44 AM EST 07/04/2024 12:25 PM EST us Priscilla Doan MD LAB BLOOD ORDERABLES Fin al Result [facility] [address] [place] [address], * (ABNORMAL) Complete blood count (07/04/2024 9:44 AM EST) WBC 11.0(H) 4.8 - 10.8 K/mcL LAB HEMETOLOGY METHOD 07/04/2024 1:39 PM [facility] RBC 3.40(L) 4.50 - 5.50 M/mcL LAB HEMETOLOGY METHOD 07/04/2024 1:39 PM [facility] Hemoglobin 9.2(L) 13.5 - 17.5 g/dL LAB HEMETOLOGY METHOD 07/04/2024 1:39 PM [facility] Hematocrit 30.3(L) 42.0 - 54.0 % LAB HEMETOLOGY METHOD 07/04/2024 1:39 PM [facility] MCV 89.9 79.0 - 98.0 FL LAB HEMETOLOGY METHOD 07/04/2024 1:39 PM [facility] MCH 27.3 27.0 - 32.0 pcg LAB HEMETOLOGY METHOD 07/04/2024 1:39 PM [facility] MCHC 30.4(L) 32.0 - 37.0 g/dL LAB HEMETOLOGY METHOD 07/04/2024 1:39 PM EST [facility] RDW 16.3(H) 11.0 - 15.0 % LAB HEMETOLOGY METHOD 07/04/2024 1:39 PM EST [facility] Platelets 279 130 - 400 K/mcL LAB HEMETOLOGY METHOD 07/04/2024 1:39 PM EST [facility] MPV 10.3 7.0 - 11.0 FL LAB HEMETOLOGY METHOD 07/04/2024 1:39 PM EST [facility] NRBC 0.0 <1.0 % LAB HEMETOLOGY METHOD 07/04/2024 1:39 PM EST [facility] NRBC Absolute 0.00 <0.10 K/mcL LAB HEMETOLOGY METHOD 07/04/2024 1:39 PM [facility] Blood Venous blood specimen / Unknown Venipuncture / Unknown 07/04/2024 9:44 AM EST 07/04/2024 12:25 PM EST us Priscilla Doan MD LAB BLOOD ORDERABLES Fin al Result [facility] [address] [place] [address], documented in this encounter Visit Diagnoses Diagnosis Unspecified viral hepatitis C 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 documented in this encounter Care Teams Order Schedule Clerk Relationship Specialty Start Date End Date Priscilla Doan MD [address] [place] [phone] PCP - General Family Medicine 06/18/24 documented as of this encounter
--- OUTSIDE RECORDS SUMMARY | 2024-08-23 17:19 | XMS_ITS | Encounter Summary ---
Author Organization [facility] Address [address] [place] [address] Care Team Providers Care Watch Adjuster Name Role Phone Priscilla Doan MD Primary Care Provider + Encounter Details Date Type Department Care Team (Late st Contact Info) Description 06/18/[address] [facility] - Main Lab 299 [facility] [place] [address] Priscilla Doan MD [address] [address] Unspecified viral hepatitis C 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 [...] mmol/L LAB CHEMISTRY METHOD 06/20/2024 2:17 PM [facility] CO2 23 21 - 32 mmol/L LAB CHEMISTRY METHOD 06/20/2024 2:17 PM [facility] Anion Gap 8 3 - 11 LAB CHEMISTRY METHOD 06/20/2024 2:17 PM [facility] Glucose 84 70 - 100 mg/dL LAB CHEMISTRY METHOD 06/20/2024 2:17 PM [facility] BUN 42(H) 5 - 25 mg/dL LAB CHEMISTRY METHOD 06/20/2024 2:17 PM [facility] Creatinine 1.27 0.70 - 1.30 mg/dL LAB CHEMISTRY METHOD 06/20/2024 2:17 PM [facility] eGFR 62 >=60 mL/min/1. 73m2 LAB CHEMISTRY METHOD 06/20/2024 2:17 PM [facility] Comment:Calculation based on the??Chronic Kidney Disease Epidemiology Collaboration (CKD-EPI) equation refit??without adjustment for race. BUN/Creatinine Ratio 33.1 LAB CHEMISTRY METHOD 06/20/2024 2:17 PM [facility] Calcium 8.7 8.5 - 10.5 mg/dL LAB CHEMISTRY METHOD 06/20/2024 2:17 PM [facility] AST (SGOT) 24 10 - 42 unit/L LAB CHEMISTRY METHOD 06/20/2024 2:17 PM [facility] ALT (SGPT) 25 10 - 60 unit/L LAB CHEMISTRY METHOD 06/20/2024 2:17 PM [facility] Alkaline Phosphatase 78 42 - 121 unit/L LAB CHEMISTRY METHOD 06/20/2024 2:17 PM [facility] Total Protein 5.8(L) 6.0 - 8.0 g/dL LAB CHEMISTRY METHOD 06/20/2024 2:17 PM [facility] Albumin 2.0(L) 3.2 - 5.0 g/dL LAB CHEMISTRY METHOD 06/20/2024 2:17 PM [facility] Total Bilirubin 0.3 0.0 - 1.4 mg/dL LAB CHEMISTRY METHOD 06/20/2024 2:17 PM [facility] Blood Venous blood specimen / Unknown Venipuncture / Unknown 06/20/2024 7:40 AM EST 06/20/2024 12:03 PM EST us Priscilla Doan MD LAB BLOOD ORDERABLES Fin al Result [facility] [address] [place] [address], * (ABNORMAL) Complete blood count (06/20/2024 7:40 AM EST) WBC 6.2 4.8 - 10.8 K/mcL LAB HEMETOLOGY METHOD 06/20/2024 1:18 PM [facility] RBC 3.20(L) 4.50 - 5.50 M/mcL LAB HEMETOLOGY METHOD 06/20/2024 1:18 PM [facility] Hemoglobin 8.7(L) 13.5 - 17.5 g/dL LAB HEMETOLOGY METHOD 06/20/2024 1:18 PM [facility] Hematocrit 28.8(L) 42.0 - 54.0 % LAB HEMETOLOGY METHOD 06/20/2024 1:18 PM [facility] MCV 91.1 79.0 - 98.0 FL LAB HEMETOLOGY METHOD 06/20/2024 1:18 PM [facility] MCH 27.5 27.0 - 32.0 pcg LAB HEMETOLOGY METHOD 06/20/2024 1:18 PM [facility] MCHC 30.2(L) 32.0 - 37.0 g/dL LAB HEMETOLOGY METHOD 06/20/2024 1:18 PM [facility] RDW 16.2(H) 11.0 - 15.0 [...] Result [facility] [address] [place] [address], documented in this encounter Visit Diagnoses Diagnosis Unspecified viral hepatitis C 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 documented in this encounter Care Teams Watch Adjuster Relationship Specialty Start Date End Date Priscilla Doan MD [address] [place] [address] PCP - General Family Medicine 06/18/24 documented as of this encounter
--- OUTSIDE RECORDS SUMMARY | 2024-08-23 17:19 | XMS_ITS | Encounter Summary ---
Author Organization [facility] Address [address] [place] [address] Care Team Providers Care On Site Soil Evaluator Name Role Phone Priscilla Doan MD Primary Care Provider + Encounter Details Date Type Department Care Team (Late st Contact Info) Description 08/04/[address] [facility] - Main Lab 299 [facility] [place] [address] Priscilla Doan MD [address] [address] Unspecified viral hepatitis C 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; [...] LAB CHEMISTRY METHOD 08/05/2024 10:[address] [facility] Potassium 5.8(H) 3.5 - 5.5 mmol/L LAB CHEMISTRY METHOD 08/05/2024 10:28 AM [facility] Chloride 101 96 - 110 mmol/L LAB CHEMISTRY METHOD 08/05/2024 10:28 AM [facility] CO2 27 21 - 32 mmol/L LAB CHEMISTRY METHOD 08/05/2024 10:28 AM [facility] Anion Gap 5 3 - 11 LAB CHEMISTRY METHOD 08/05/2024 10:28 AM [facility] Glucose 82 70 - 100 mg/dL LAB CHEMISTRY METHOD 08/05/2024 10:28 AM [facility] BUN 41(H) 5 - 25 mg/dL LAB CHEMISTRY METHOD 08/05/2024 10:28 AM [facility] Creatinine 1.53(H) 0.70 - 1.30 mg/dL LAB CHEMISTRY METHOD 08/05/2024 10:28 AM [facility] eGFR 49(L) >=60 mL/min/1. 73m2 LAB CHEMISTRY METHOD 08/05/2024 10:28 AM [facility] Comment:Calculation based on the??Chronic Kidney Disease Epidemiology Collaboration (CKD-EPI) equation refit??without adjustment for race. BUN/Creatinine Ratio 26.8 LAB CHEMISTRY METHOD 08/05/2024 10:28 AM [facility] Calcium 8.5 8.5 - 10.5 mg/dL LAB CHEMISTRY METHOD 08/05/2024 10:28 AM [facility] AST (SGOT) 23 10 - 42 unit/L LAB CHEMISTRY METHOD 08/05/2024 10:28 AM [facility] ALT (SGPT) 19 10 - 60 unit/L LAB CHEMISTRY METHOD 08/05/2024 10:28 AM [facility] Alkaline Phosphatase 68 42 - 121 unit/L LAB CHEMISTRY METHOD 08/05/2024 10:28 AM [facility] Total Protein 5.5(L) 6.0 - 8.0 g/dL LAB CHEMISTRY METHOD 08/05/2024 10:28 AM EDT [facility] Albumin 1.8(L) 3.2 - 5.0 g/dL LAB CHEMISTRY METHOD 08/05/2024 10:28 AM EDT [facility] Total Bilirubin 0.3 0.0 - 1.4 mg/dL LAB CHEMISTRY METHOD 08/05/2024 10:28 AM EDT [facility] Blood Venous blood specimen / Unknown Venipuncture / Unknown 08/05/2024 7:23 AM EDT 08/05/2024 9:29 AM EDT us Priscilla Doan MD LAB BLOOD ORDERABLES Fin al Result [facility] [address] [place] [address], * (ABNORMAL) Complete blood count (08/05/2024 7:23 AM EDT) WBC 5.7 4.8 - 10.8 K/mcL LAB HEMETOLOGY METHOD 08/05/2024 9:53 AM [facility] RBC 3.00(L) 4.50 - 5.50 M/mcL LAB HEMETOLOGY METHOD 08/05/2024 9:53 AM [facility] Hemoglobin 8.2(L) 13.5 - 17.5 g/dL LAB HEMETOLOGY METHOD 08/05/2024 9:53 AM T [facility] Hematocrit 26.4(L) 42.0 - 54.0 % LAB HEMETOLOGY METHOD 08/05/2024 9:53 AM [facility] MCV 88.0 79.0 - 98.0 FL LAB HEMETOLOGY METHOD 08/05/2024 9:53 AM [facility] MCH 27.3 27.0 - 32.0 pcg LAB HEMETOLOGY METHOD 08/05/2024 9:53 AM EDT [facility] MCHC 31.1(L) 32.0 - 37.0 g/dL LAB HEMETOLOGY METHOD 08/05/2024 9:53 AM EDT [facility] RDW 15.1(H) 11.0 - 15.0 % LAB HEMETOLOGY METHOD 08/05/2024 9:53 AM EDT [facility] Platelets 263 130 - 400 K/mcL LAB HEMETOLOGY METHOD 08/05/2024 9:53 AM EDT [facility] MPV 9.8 7.0 - 11.0 FL LAB HEMETOLOGY METHOD 08/05/2024 9:53 AM EDT [facility] NRBC 0.0 <1.0 % LAB HEMETOLOGY METHOD 08/05/2024 9:53 AM EDT [facility] NRBC Absolute 0.00 <0.10 K/mcL LAB HEMETOLOGY METHOD 08/05/2024 9:53 AM EDT [facility] Blood Venous blood specimen / Unknown Venipuncture / Unknown 08/05/2024 7:23 AM EDT 08/05/2024 9:28 AM EDT us Priscilla Doan MD LAB BLOOD ORDERABLES Fin al Result [facility] [address] [place] [address], documented in this encounter Visit Diagnoses Diagnosis Unspecified viral hepatitis C 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 Type 2 diabetes mellitus without complications documented in this encounter Care Teams On Site Soil Evaluator Relationship Specialty Start Date End Date Priscilla Doan MD [address] [place] [id number] PCP - General Family Medicine 06/18/24 documented as of this encounter
--- OUTSIDE RECORDS SUMMARY | 2024-08-23 17:19 | XMS_ITS | Encounter Summary ---
Author Organization [employer] Address [address] [place] [address] Care Team Providers Care English Faculty Member Name Role Phone Priscilla Doan MD Primary Care Provider + Encounter Details Date Type Department Care Team (Late st Contact Info) Description 07/22/2024 Lab Requisition [facility] - Main Lab [address] [facility] [place] [address] Priscilla Doan MD [address] [facility] [address] [place], [place] [id number] Hyperkalemia; Unspecified cirrhosis of liver (CMS/HCC); Unspecified [...] mmol/L LAB CHEMISTRY METHOD 07/22/2024 11:[address] [facility] Potassium 4.4 3.5 - 5.5 mmol/L LAB CHEMISTRY METHOD 07/22/2024 11:[address] [facility] Chloride 106 96 - 110 mmol/L LAB CHEMISTRY METHOD 07/22/2024 11:[address] [facility] CO2 23 21 - 32 mmol/L LAB CHEMISTRY METHOD 07/22/2024 11:[address] [facility] Anion Gap 9 3 - 11 LAB CHEMISTRY METHOD 07/22/2024 11:[address] [facility] Glucose 122(H) 70 - 100 mg/dL LAB CHEMISTRY METHOD 07/22/2024 11:[address] [facility] BUN 28(H) 5 - 25 mg/dL LAB CHEMISTRY METHOD 07/22/2024 11:[address] [facility] Creatinine 1.06 0.70 - 1.30 mg/dL LAB CHEMISTRY METHOD 07/22/2024 11:[address] [facility] eGFR 76 >=60 mL/min/1. 73m2 LAB CHEMISTRY METHOD 07/22/2024 11:[address] [facility] Comment:Calculation based on the??Chronic Kidney Disease Epidemiology Collaboration (CKD-EPI) equation refit??without adjustment for race. BUN/Creatinine Ratio 26.4 LAB CHEMISTRY METHOD 07/22/2024 11:[address] [facility] Calcium 8.4(L) 8.5 - 10.5 mg/dL LAB CHEMISTRY METHOD 07/22/2024 11:[address] [facility] AST (SGOT) 26 10 - 42 unit/L LAB CHEMISTRY METHOD 07/22/2024 11:[address] [facility] ALT (SGPT) 22 10 - 60 unit/L LAB CHEMISTRY METHOD 07/22/2024 11:[address] [facility] Alkaline Phosphatase 81 42 - 121 unit/L LAB CHEMISTRY METHOD 07/22/2024 11:[address] [facility] Total Protein 5.7(L) 6.0 - 8.0 g/dL LAB CHEMISTRY METHOD 07/22/2024 11:[address] [facility] Albumin 2.6(L) 3.2 - 5.0 g/dL LAB CHEMISTRY METHOD 07/22/2024 11:[address] [facility] Total Bilirubin 0.2 0.0 - 1.4 mg/dL LAB CHEMISTRY METHOD 07/22/2024 11:[address] [facility] Blood Venous blood specimen / Unknown Venipuncture / Unknown 07/22/2024 5:21 AM EST 07/22/2024 10:32 AM EST Priscilla Doan MD LAB BLOOD ORDERABLES Fin al Result [facility] [address] [place] [address], * (ABNORMAL) Complete blood count (07/22/2024 5:21 AM EST) WBC 5.8 4.8 - 10.8 K/mcL LAB HEMETOLOGY METHOD 07/22/2024 10:[address] [facility] RBC 3.20(L) 4.50 - 5.50 M/mcL LAB HEMETOLOGY METHOD 07/22/2024 10:[address] [facility] Hemoglobin 8.8(L) 13.5 - 17.5 g/dL LAB HEMETOLOGY METHOD 07/22/2024 10:[address] [facility] Hematocrit 27.7(L) 42.0 - 54.0 % LAB HEMETOLOGY METHOD 07/22/2024 10:[address] [facility] MCV 87.9 79.0 - 98.0 FL LAB HEMETOLOGY METHOD 07/22/2024 10:44 AM EST [facility] MCH 27.9 27.0 - 32.0 pcg LAB HEMETOLOGY METHOD 07/22/2024 10:[address] [facility] MCHC 31.8(L) 32.0 - 37.0 g/dL LAB HEMETOLOGY METHOD 07/22/2024 10:44 AM EST [facility] RDW 16.1(H) 11.0 - 15.0 % LAB HEMETOLOGY METHOD 07/22/2024 10:44 AM EST [facility] Platelets 192 130 - 400 K/mcL LAB HEMETOLOGY METHOD 07/22/2024 10:[address] [facility] MPV 10.5 7.0 - 11.0 FL LAB HEMETOLOGY METHOD 07/22/2024 10:44 AM EST [facility] NRBC 0.0 <1.0 % LAB HEMETOLOGY METHOD 07/22/2024 10:[address] [facility] NRBC Absolute 0.00 <0.10 K/mcL LAB HEMETOLOGY METHOD 07/22/2024 10:[address] [facility] Blood Venous blood specimen / Unknown Venipuncture / Unknown 07/22/2024 5:21 AM EST 07/22/2024 10:32 AM EST us Priscilla Doan MD LAB BLOOD ORDERABLES Fin al Result [facility] [address] [place] [address], documented in this encounter Visit Diagnoses Diagnosis Hyperkalemia Hyperpotassemia Unspecified cirrhosis of liver (CMS/HCC) Unspecified viral hepatitis C 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 Type 2 diabetes mellitus without complications Other cirrhosis of liver documented in this encounter Care Teams English Faculty Member Relationship Specialty Start Date End Date Priscilla Doan MD [address] [address] PCP - General Family Medicine 06/18/24 documented as of this encounter
--- OUTSIDE RECORDS SUMMARY | 2024-08-23 17:19 | XMS_ITS | Encounter Summary ---
Author Organization [facility] Address [address] [place] [address] Care Team Providers Care Dictionary Editor Name Role Phone Priscilla Doan MD Primary Care Provider + Encounter Details Date Type Department Care Team (Late st Contact Info) Description 08/03/2024 Lab Requisition [facility] [address] [facility] [place] [address] Priscilla Doan MD [address] [address] Chronic kidney disease, unspecified Social History Tobacco [...] LAB CHEMISTRY METHOD 08/03/2024 12:54 PM EDT [facility] Potassium 5.5 3.5 - 5.5 mmol/L LAB CHEMISTRY METHOD 08/03/2024 12:54 PM T [facility] Chloride 102 96 - 110 mmol/L LAB CHEMISTRY METHOD 08/03/2024 12:54 PM T [facility] CO2 24 21 - 32 mmol/L LAB CHEMISTRY METHOD 08/03/2024 12:54 PM EDT [facility] Anion Gap 8 3 - 11 LAB CHEMISTRY METHOD 08/03/2024 12:54 PM EDT [facility] Glucose 86 70 - 100 mg/dL LAB CHEMISTRY METHOD 08/03/2024 12:54 PM EDT [facility] BUN 40(H) 5 - 25 mg/dL LAB CHEMISTRY METHOD 08/03/2024 12:54 PM EDT [facility] Creatinine 1.36(H) 0.70 - 1.30 mg/dL LAB CHEMISTRY METHOD 08/03/2024 12:54 PM EDT [facility] eGFR 56(L) >=60 mL/min/1. 73m2 LAB CHEMISTRY METHOD 08/03/2024 12:54 PM EDT [facility] Comment:Calculation based on the??Chronic Kidney Disease Epidemiology Collaboration (CKD-EPI) equation refit??without adjustment for race. BUN/Creatinine Ratio 29.4 LAB CHEMISTRY METHOD 08/03/2024 12:54 PM EDT [facility] Calcium 8.8 8.5 - 10.5 mg/dL LAB CHEMISTRY METHOD 08/03/2024 12:54 PM [facility] Blood Venous blood specimen / Unknown Venipuncture / Unknown 08/03/2024 8:00 AM EDT 08/03/2024 10:45 AM EDT us Priscilla Doan MD LAB BLOOD ORDERABLES Fin al Result [facility] [address] [place] [address], documented in this encounter Visit Diagnoses Diagnosis Chronic kidney disease, unspecified documented in this encounter Care Teams Dictionary Editor Relationship Specialty Start Date End Date Priscilla Doan MD [address] [place] [id number] PCP - General Family Medicine 06/18/24 documented as of this encounter
[2024-08-23 17:48] LABS: RBC Peritoneal Fluid < 0.002 X10*6/uL
[2024-08-23 18:08] LABS: BF Shift QC OK YES; Lymphocyte Peritoneal Fl 42 %; Man Diluent Bkgrd OK YES; Monocytes Peritoneal Fl 10 %; Other Peritioneal Fl 48 %
[2024-08-23 20:44] LABS: Glucose, Whole Blood 143 mg/dL (60-115)
[2024-08-23] MEDS: 0.9 % Sodium Chloride Flush 3 ML SYRINGE IVFLUSH (21:02)
[2024-08-23] MEDS: Sodium Bicarbonate 650 MG TABLET PO (21:07)
[2024-08-23] MEDS: Mirtazapine 15 MG TABLET PO (21:07)
[2024-08-23] MEDS: Tamsulosin HCL 0.4 MG CAPSULE 0.8 MG PO (21:07)
[2024-08-23] MEDS: Apixaban 5 MG TABLET PO (21:07)
[2024-08-23] MEDS: Baclofen 10 MG TABLET 5 MG PO (21:07)
[2024-08-23] MEDS: Gabapentin 100 MG CAPSULE 200 MG PO (21:07)
--- NOTE | 2024-08-23 21:37 | HO.SKINPHOTO ---
Location: coccyx Category: pressure Stage: 2-3? Length: Width: Depth: cm Location: Category: Stage: Length: Width: Depth: cm Location: Category: Stage: Length: Width: Depth: cm Location: Category: Stage: Length: Width: Depth: cm Location: Category: Stage: Length: Width: Depth: cm Location: Category: Stage: Length: Width: Depth: cm
[2024-08-24 00:56] VITALS: BP 91/53; PULSE 90; RESP 18; TEMP 36.3; O2SAT 96
[2024-08-24] MEDS: Omeprazole 20 MG CAPSULE.DR PO (06:15)
[2024-08-24 06:43] LABS: Anion Gap 11 (12-20); Blood Urea Nitrogen 48 mg/dL (9-16); Calcium 8.5 mg/dL (8.4-10.2); Carbon Dioxide 27 mmol/L (22-29); Chloride 104 mmol/L (96-108); Creatinine Clr Calc Pharmacy 56.6; Estimated Glomerular Filt Rate 52; Glucose Random 81 mg/dL (60-115); Potassium 4.8 mmol/L (3.3-5.1); Sodium 137 mmol/L (135-145)
[2024-08-24 06:59] LABS: Hematocrit 23.8 % (42.0-52.0); Hemoglobin 7.3 g/dl (14.0-18.0); Mean Corpuscular HGB Conc 30.7 g/dl (31.0-36.0); Mean Corpuscular Hemoglobin 27.9 pg (27.0-33.0); Mean Corpuscular Volume 90.8 fL (80.0-98.0); Mean Platelet Volume 9.3 fL (9.4-12.4); Platelet Count 192 X10*3/uL (160-400); Red Blood Count 2.62 X10*6/uL (4.60-5.80); Red Cell Distribution Width 15.9 % (11.0-16.0); White Blood Count 3.7 X10*3/uL (4.8-10.8)
[2024-08-24 07:11] VITALS: BP 94/54; PULSE 88; RESP 16; TEMP 36.5; O2SAT 95
[2024-08-24 07:22] LABS: Glucose, Whole Blood 98 mg/dL (60-115)
[2024-08-24] MEDS: Cholestyramine (With Sugar) 4 GM POWD.PACK PO (08:32)
[2024-08-24] MEDS: Baclofen 10 MG TABLET 5 MG PO (08:33)
[2024-08-24] MEDS: Sodium Bicarbonate 650 MG TABLET PO (08:33)
[2024-08-24] MEDS: Escitalopram Oxalate 10 MG TABLET PO (08:33)
[2024-08-24] MEDS: Spironolactone 25 MG TABLET 12.5 MG PO (08:33)
[2024-08-24] MEDS: Finasteride 5 MG TABLET PO (08:33)
[2024-08-24] MEDS: Furosemide 20 MG TABLET 10 MG PO (08:33)
[2024-08-24] MEDS: Midodrine HCl 10 MG TABLET PO (08:33)
[2024-08-24] MEDS: Gabapentin 100 MG CAPSULE 200 MG PO (08:33)
[2024-08-24] MEDS: Folic Acid 1 MG TABLET PO (08:34)
[2024-08-24] MEDS: Apixaban 5 MG TABLET PO (08:34)
[2024-08-24] MEDS: Magnesium Oxide 400 MG TABLET PO (08:34)
[2024-08-24] MEDS: Multivitamin TABLET 1 TAB PO (08:34)
[2024-08-24] MEDS: 0.9 % Sodium Chloride Flush 3 ML SYRINGE IVFLUSH (08:34)
[2024-08-24] MEDS: Atorvastatin Calcium 10 MG TABLET PO (08:34)
--- NOTE | 2024-08-24 09:13 | PM.DS ---
DS: Providers Provider Date of Service: 08/24/24 Date of admission: 08/23/24 16:26 Date of discharge: 08/24/24 Primary care physician: Misty Ford MD Consults: 08/23/24 20:52 Consult to Wound Care Routine Reason for consultation: coccyx PI present on admission DS: Diagnosis Discharge Diagnosis (1) Ascites: Status: Acute DS: Summary Hospital Course Hospital Course: from initial hpi: 69M PMH diabetes, coronary disease, CVA with right hemiplegia, chronic indwelling Smith catheter, history of DVT on Eliquis, HCV cirrhosis with ascites, CKD 3, hyperlipidemia presented with abdominal distention. Patient was recently admitted on 08/06/24-08/08/24 for similar symptoms, at that time complicated by acute kidney injury on CKD 3 which improved with albumin. Was discharged [facility] for [facility] care and continued on Aldactone and Lasix but had progression of ascites to the point where it became uncomfortable again so he was sent to the ER. ER performed paracentesis with 10 L of clear fluid with relief of symptoms. hospital course: C cirrhosis with symptomatic ascites. 10 L of peritoneal fluid was removed in ED. It was negative for SBP. Was given 3 bags of albumin. Blood pressure was stable and creatinine remained stable. Patient's symptoms resolved. He will be discharged back to long-term care continue on Lasix and Aldactone and may need to be set up for weekly maintenance paracentesis. For CKD 3 remained stable. For history of diabetes A1c was 5.4, likely no longer diabetic. For history of right common femoral DVT in May 2024 was continued on Eliquis. Time Attestation Discharge Coordination Time (in mins): 32 Quality: Safe Use of Opioids Does Pt have an Active Cancer Diagnosis on the Problem List?: No Quality: Stroke Does the patient have a stroke diagnosis?: No Physical Exam Vital Signs: Vital Signs: Last Vital Signs Temp 97.7 F 08/24/24 07:11 Pulse 88 08/24/24 07:11 Resp 16 08/24/24 07:11 BP 94/54 L 08/24/24 07:11 Pulse Ox 95 08/24/24 07:11 O2 Del Method Room Air 08/24/24 07:11 BMI result Body Mass Index 27.0 General: AO X 3, no acute distress, frail, ill appearing Resp: CTA bilateral, no accessory muscles used CVS: S1,S2,RRR GI: soft, non tender, non distended Neuro: motor grossly intact, alert DS: Data Data Completed and Pending Completed studies during hospitalization [Text1]: Procedures Drainage of Peritoneal Cavity, Percutaneous Approach (08/06/24) Introduction of Vasopressor into Peripheral Vein, Percutaneous Approach (07/16/24) Transfusion of Nonautologous Red Blood Cells into Peripheral Vein, Percutaneous Approach (07/16/24) Labs on day of discharge: Laboratory Results - last 24 hr 08/23/24 08/23/24 08/23/24 14:12 16:19 16:38 WBC 8.4 RBC 2.92 L Hgb 8.1 L Hct 25.7 L MCV 88.0 MCH 27.7 MCHC 31.5 RDW 15.8 Plt Count 297 D MPV 9.3 L Immature Gran % (Auto) 0.7 H Neut % (Auto) 67.0 Lymph % (Auto) 19.9 L [place] % (Auto) 8.6 Eos % (Auto) 3.2 Baso % (Auto) 0.6 Lymph # (Auto) 1.7 [place] # (Auto) 0.7 Eos # (Auto) 0.3 Baso # (Auto) 0.1 Abs Immat Gran (auto) 0.06 H Absolute Neuts (auto) 5.6 Absolute Nucleated RBC 0.000 Nucleated RBC % (auto) 0.0 PT 15.6 H INR 1.3 H Sodium 135 Potassium 5.5 H Chloride 100 Carbon Dioxide 25 Anion Gap 16 BUN 53 H Creatinine 1.59 H Estim Creat Clear Calc 54.9 Estimated GFR 43 POC Glucose 109 Random Glucose 119 H Estimat Average Glucose 108 Hemoglobin A1c % 5.4 Calcium 8.7 Total Bilirubin 0.2 AST 24 ALT 13 Alkaline Phosphatase 62 B-Natriuretic Peptide 122 H Total Protein 6.4 L Albumin 2.7 L Peritoneal WBC 0.076 Peritoneal RBC < 0.002 Periton Lymphocytes 42 Peritoneal Monocytes 10 Peritoneal Other Cells 48 08/23/24 08/24/24 08/24/24 20:40 06:05 07:18 WBC 3.7 L RBC 2.62 L Hgb 7.3 L Hct 23.8 L MCV 90.8 MCH 27.9 MCHC 30.7 L RDW 15.9 Plt Count 192 D MPV 9.3 L Immature Gran % (Auto) Neut % (Auto) Lymph % (Auto) [place] % (Auto) Eos % (Auto) Baso % (Auto) Lymph # (Auto) [place] # (Auto) Eos # (Auto) Baso # (Auto) Abs Immat Gran (auto) Absolute Neuts (auto) Absolute Nucleated RBC 0.000 Nucleated RBC % (auto) 0.0 PT INR Sodium 137 Potassium 4.8 Chloride 104 Carbon Dioxide 27 Anion Gap 11 L BUN 48 H Creatinine 1.35 Estim Creat Clear Calc 56.6 Estimated GFR 52 POC Glucose 143 H 98 Random Glucose 81 Estimat Average Glucose Hemoglobin A1c % Calcium 8.5 Total Bilirubin AST ALT Alkaline Phosphatase B-Natriuretic Peptide Total Protein Albumin Peritoneal WBC Peritoneal RBC Periton Lymphocytes Peritoneal Monocytes Peritoneal Other Cells Discharge Plan Discharge Anticipated Discharge Date/Time: 08/24/24 09:11 Patient Disposition: Xfer [facility] Discharge Diagnosis: ascites Referrals: [facility] Misty Ford MD [Primary Care Provider] - 1 Week Discharge Medications: Continued multivitamin Tablet 1 tab PO DAILY atorvastatin 10 mg Tablet 10 mg PO DAILY polyvinyl alcohol 1.4 % Drops 1 drp OPHTHALMIC (EYE) QID pantoprazole 20 mg Tablet,Delayed Release (Dr/Ec) 20 mg PO DAILY@0630 magnesium hydroxide [Milk of Magnesia] 400 mg/5 mL Suspension 30 ml PO DAILY PRN (Reason: Constipation, use first) tamsulosin [Flomax] 0.4 mg Capsule 0.8 mg PO BEDTIME bisacodyl 10 mg Suppository 10 mg ID DAILY PRN (Reason: Constipation, 8 hrs after MOM) Fleet Enema 19-7 gram/118 mL Enema 118 ml ID DAILY PRN (Reason: Constipation,8 hrs after bisacodyl) folic acid 1 mg Tablet 1 mg PO DAILY mirtazapine [Remeron] 15 mg Tablet 15 mg PO BEDTIME gabapentin 100 mg Capsule 200 mg PO BID glucagon 1 mg Recon Soln 1 mg SUBCUT Q20M PRN (Reason: Hypoglycemia) Rx Instructions: until target blood sugar attained finasteride 5 mg Tablet 5 mg PO DAILY midodrine 10 mg Tablet 10 mg PO TIDWM Rx Instructions: do not give last dose of day after 6PM or within 4 hrs of bedtime cholestyramine (with sugar) 4 gram Powder 4 g PO DAILY Rx Instructions: administer w/meal; avoid other meds within 1hr before or 4-6hr after dose apixaban 5 mg Tablet 5 mg PO BID baclofen 5 mg Tablet 5 mg PO TID magnesium oxide 400 mg magnesium Tablet 400 mg PO DAILY sodium bicarbonate 650 mg Tablet 650 mg PO BID Qty: 180 0RF spironolactone 25 mg tablet 12.5 mg PO DAILY dextrose [Glucose Gel] 40 % Gel 15 g PO Q15M PRN (Reason: Hypoglycemia) Rx Instructions: until symptoms of low blood sugar are controlled furosemide 20 mg Tablet 10 mg PO DAILY Rx Instructions: END DATE: 07/17/24 escitalopram oxalate 10 mg Tablet 10 mg PO DAILY lactulose 10 gram/15 mL solution 10 g PO Q12H PRN (Reason: Constipation) metformin 500 mg Tablet 500 mg PO BIDWMEAL Discharge Orders: Discharge Order (Routine); Ordered 08/24/24 Ordered By: Erasto Sena Diet: Advance to usual diet Activity on Discharge: As tolerated Stand Alone Forms: Patient Portal Discharge page Print Language: Brazilian Care Plan Goals: manage ascites Health Concerns: ascites Plan of Treatment: likely needs weekly scheduled paracenteses Assessment: see above
--- NOTE | 2024-08-24 09:26 | MHC.CM.PN ---
Attempted to call HCP, Keshawn, and left voicemail. VALENCIA delivered. CM assessment completed via chart review. Per last visit CM note, HCP invoked. Patient is LTC resident at [facility]. Dependent for care. PCP Connie Doan MD DP: Medically cleared for dc back to [facility]. BLS scheduled for 11am. CM left this information on VM for HCP.
[2024-08-24 11:00] VITALS: BP 90/54; PULSE 88; RESP 16; TEMP 36.9; O2SAT 98
== END 2024-08-24 11:42 ==
LOC: HO.ED 16:18 → HO.EDOVER 16:33 → HO.S3 19:26
PROVIDERS: Admitting Provider Internal Medicine; Emergency Provider Emergency Medicine; PCP Internal Medicine Geriatric Medicine; Visit Provider Internal Medicine
DX: R18.8 Other ascites (principal); K74.60 Unspecified cirrhosis of liver; B19.20 Unspecified viral hepatitis C 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; E11.22 Type 2 diabetes mellitus with diabetic chronic kidney disease; N18.30 Chronic kidney disease, stage 3 unspecified; I69.351 Hemiplegia and hemiparesis following cerebral infarction affecting right dominant side; D64.9 Anemia, unspecified; Z87.440 Personal history of urinary (tract) infections; Z86.718 Personal history of other venous thrombosis and embolism; Z79.01 Long term (current) use of anticoagulants; E78.5 Hyperlipidemia, unspecified; Z87.891 Personal history of nicotine dependence; Z79.02 Long term (current) use of antithrombotics/antiplatelets; Z79.899 Other long term (current) drug therapy; Z79.84 Long term (current) use of oral hypoglycemic drugs
CPT/HCPCS: 36415; 80048; 80053; 82947; 83036; 83880; 85025; 85027; 85610; 87070; 87073; 87205; 89051; 99221; 99285; P9047

== ENCOUNTER → 2024-08-23 16:26 | Outpatient (BNV) | payer MEDICARE, MEDICAID, SELFPAY | PROVIDERS: Admitting Provider Internal Medicine; Emergency Provider Emergency Medicine; PCP Internal Medicine Geriatric Medicine; Visit Provider Internal Medicine | DX: R18.8 Other ascites (principal) | CPT/HCPCS: 99223; 99239 ==

== ENCOUNTER 2024-09-18 14:32 | Inpatient (IN) | payer MEDICARE, MEDICAID, SELFPAY ==
[2024-09-18] VITALS (7 sets, daily range): BP systolic 102–133; BP diastolic 53–91; PULSE 94–106; RESP 16–27; TEMP 35.7–36.8; O2SAT 95–99; BMI 33.6
--- NOTE | ~2024-09-18 | US_ITS ---
Ultrasound paracentesis History: Ascites. Risks and benefits and possible complications were discussed with the patient and consent form was signed. A safe pocket of ascitic fluid was identified using ultrasound guidance, and the overlying skin was marked. The abdomen prepped and draped in sterile fashion. 1% lidocaine was used as a local anesthetic. Using ultrasound guidance, a 5 fr catheter was placed into the ascitic pocket. 5 liters of yellow fluid was removed passively. The catheter was then removed. A few member services representative images from before and after the examination were obtained. The procedure was performed by Baldo Trujillo PA-C and supervised by Dr. Choudhary. US/US paracentesis abd w/image Impression: Ultrasound-guided paracentesis as described above. No immediate complications Electronically signed by: Sixto Choudhary MD 09/23/2024 05:26 PM EDT
--- NOTE | ~2024-09-18 | US_ITS ---
EXAMINATION: US TRIPLEX LOWER EXTREMITY, RIGHT CLINICAL INFORMATION: History of DVT. Edema, right lower extremity. COMPARISON: DVT ultrasound dated the September 20, 2024 on the left lower extremity. TECHNIQUE: Color-flow triplex imaging with spectral analysis and compression Doppler were performed on the right lower extremity. FINDINGS: Respiratory variation, normal compression and augmented flow are noted throughout the interrogated common femoral vein, superficial femoral vein, profunda femoral vein, popliteal vein and midcalf peroneal and posterior tibial venous segments . There is no Chiang's cyst. US/US venous duplex LE RT IMPRESSION: No acute deep venous thrombosis involving the right lower extremity. Negative for DVT. Electronically signed by: Karl Dawkins MD 09/22/2024 11:17 AM EDT
--- NOTE | ~2024-09-18 | US_ITS ---
CLINICAL HISTORY: left arm bruising sweling -? hematoma US of the left arm Comparison: None Findings: There is ill-defined hypoechogenicity within the subcutaneous fat. No focal mass or fluid collection. Impression: Left upper extremity edema versus cellulitis. This document has been electronically signed by: Tamy Marie MD on 09/20/2024 17:37:11
--- NOTE | 2024-09-18 15:10 | ED_ITS ---
HPI - Abdominal Pain General Chief Complaint: Abdominal Pain Stated Complaint: ABD PAIN Time Seen by Provider: 09/18/24 14:53 Source: patient, EMS and old records reviewed Mode of arrival: EMS Limitations: no limitations History of Present Illness ED Provider: DR. Garcia HPI narrative: 69-year-old male pertinent history of DM, CAD, CVA with R hemiplegia, DVT on Eliquis, HCV cirrhosis with ascites, CKD 3, hyperlipidemia presented with severe abdominal distention, patient usually require paracentesis every 2 weeks and because he require BP monitoring after the paracentesis usually get admitted. No abdominal pain, no fever, no chills. Related Data Home Medications ?Medication ?Instructions ?Recorded ?Confirmed apixaban 5 mg tablet 5 mg PO BID 06/26/24 08/23/24 atorvastatin 10 mg tablet 10 mg PO DAILY 06/26/24 08/23/24 baclofen 5 mg tablet 5 mg PO TID 06/26/24 08/23/24 bisacodyl 10 mg rectal suppository 10 mg WY DAILY PRN Constipation, 8 06/26/24 08/23/24 hrs after MOM cholestyramine (with sugar) 4 gram 4 g PO DAILY 06/26/24 08/23/24 oral powder finasteride 5 mg tablet 5 mg PO DAILY 06/26/24 08/23/24 folic acid 1 mg tablet 1 mg PO DAILY 06/26/24 08/23/24 gabapentin 100 mg capsule 200 mg PO BID 06/26/24 08/23/24 glucagon 1 mg solution for 1 mg subcut Q20M PRN Hypoglycemia 06/26/24 08/23/24 injection magnesium hydroxide 400 mg/5 mL 30 ml PO DAILY PRN Constipation, 06/26/24 08/23/24 oral suspension (Milk of Magnesia) use first magnesium oxide 400 mg PO DAILY 06/26/24 08/23/24 midodrine 10 mg tablet 10 mg PO TIDWM 06/26/24 08/23/24 mirtazapine 15 mg tablet (Remeron) 15 mg PO BEDTIME 06/26/24 08/23/24 multivitamin 1 tab PO DAILY 06/26/24 08/23/24 pantoprazole 20 mg tablet,delayed 20 mg PO DAILY@0630 06/26/24 08/23/24 release polyvinyl alcohol 1.4 % eye drops 1 drp ophthalmic (eye) QID 06/26/24 08/23/24 sodium phosphates 19 gram-7 118 ml WY DAILY PRN Constipation,8 06/26/24 08/23/24 gram/118 mL enema (Fleet Enema) hrs after bisacodyl tamsulosin 0.4 mg capsule (Flomax) 0.8 mg PO BEDTIME 06/26/24 08/23/24 dextrose 40 % oral gel (Glucose 15 g PO Q15M PRN Hypoglycemia 07/16/24 08/23/24 Gel) escitalopram oxalate 10 mg tablet 10 mg PO DAILY 07/16/24 08/23/24 furosemide 20 mg tablet 10 mg PO DAILY 07/16/24 08/23/24 lactulose 10 gram/15 mL oral 10 g PO Q12H PRN Constipation 08/06/24 08/23/24 solution metformin 500 mg tablet 500 mg PO BIDWMEAL 08/06/24 08/23/24 spironolactone 25 mg tablet 12.5 mg PO DAILY 08/23/24 08/23/24 Previous Rx's ?Medication ?Instructions ?Recorded sodium bicarbonate 650 mg tablet 650 mg PO BID #180 tabs 06/29/24 Allergies Allergy/AdvReac Type Severity Reaction Status Date / Time No Known Allergies Allergy Verified 09/18/24 15:00 Review of Systems Review of Systems All other systems are reviewed and are negative Constitutional: Reports as per HPI and Reports no additional constitutional complaints Eyes: Reports as per HPI and Reports no additional eye complaints Reports system reviewed and no additional complaints, except as documented Cardiovascular: Reports as per HPI and Reports no additional cardiovascular complaints Respiratory: Reports as per HPI and Reports no additional respiratory complaints Gastrointestinal: Reports as per HPI and Reports no additional gastrointestinal complaints Genitourinary: Reports no additional female genitourinary complaints Musculoskeletal: Reports no additional musculoskeletal complaints Skin/Breast: Reports system reviewed and no additional complaints, except as docu Psychiatric: Reports no additional psychiatric complaints Endocrine: Reports no additional endocrine complaints Hematologic/Lymphatic: Reports no additional hematologic/lymphatic complaints Allergic/Immunologic: Reports no additional allergic/immunologic complaints Reports system reviewed and no additional complaints, except as documented and Reports Abnormal speech present PMFSH Past Medical History Medical History Hypotension Chronic UTI (urinary tract infection) Anemia Coronary artery disease Depression Hyperlipidemia CKD (chronic kidney disease) CVA (cerebral vascular accident) Liver cirrhosis Diabetes mellitus Chronic indwelling Smith catheter Cirrhosis of liver with ascites Hepatitis C Social History Social History Household Members: Unknown / Unable to assess Housing: Half-Way Housing Other:: unknown, pt poor historian Do you presently have visiting nurse or other home services: Yes Unable to assess alcohol history related to: Unable to respond Alcohol intake: former Patient Tobacco Use Status: Former Tobacco user e-Cigarette/Vaping Use: Never Used Second Hand Smoke Exposure: No Use of substances other than those prescribed or required for medical reasons: Unable to respond Advance Directives: Yes Advance Directives on File: Yes Advance Directives Date on File: 07/22/24 Do you have a plan to hurt others: No Plan service: No Physical Exam ED Vital Signs: Vital Signs - 24 hr 09/18/24 14:57 09/18/24 16:00 Temperature 96.3 F L 98.1 F Pulse Rate 106 H 102 H Respiratory Rate 26 H 18 Blood Pressure 102/78 108/59 L Pulse Oximetry 95 99 Oxygen Delivery Method Room Air Room Air BMI result Body Mass Index 33.6 Vital signs have been reviewed and appear to be correct. Blood pressure elevated. Heart rate normal. Respiratory rate normal. Temperature normal. Oxygen saturation normal. Appearance: Alert. Oriented X3. No acute distress. Head: Normal external exam. Normocephalic. Atraumatic. No Smart signs noted. No raccoon eyes noted Eyes: PERRLA. EOMI. Conjunctiva and sclera normal. Eyelids normal. ENT: TM's Normal. Pharynx normal. Uvula midline. Moist mucous membranes. No trismus noted. No drooling noted. No muffled voice noted. Neck: Normal inspection. Neck supple. FROM. No adenopathy. Thyroid Normal. No meningeal signs. No neck mass noted. CVS: Normal heart rate and rhythm. Heart sound normal. No murmurs noted. Pulses normal throughout. Respiratory: No respiratory distress. Painless inspiration. Breath sounds normal. No wheezes/rales/rhonchi noted. Chest nontender. No accessory muscle usage noted or decreased air movement noted. Abdomen: Distended with ascites fluids, nontender, no guarding, no rebound tenderness. Bowel sounds normal in all 4 quadrants. No distention noted. No organomegaly noted. No visible injury noted. Back: No CVA tenderness. Full range of motion noted. Skin: Skin warm and dry. Normal skin color. Normal skin turgor. No rashes/lesions/lacerations noted. Extremities: No lower extremity edema. Extremities exhibit normal range of motion. Extremities nontender. Neuro: Oriented X 3. Cranial nerve exam: II-XII are grossly intact No motor deficit. No sensory deficit. Reflexes normal. Course Reevaluation(s) Reevaluation #1: Paracentesis was performed and 9 L of peritoneal fluid was drained and sent for more analysis, no suspicion for SBP, receiving 2 units of albumin to support blood pressure, case was discussed with the hospitalist Dr. Toussaint to admit for blood pressure monitoring. Time: 16:02 Medical Decision Making Differential Diagnosis Differential Diagnoses: The differential diagnosis associated with the presentation includes (SBP, hepatic encephalopathy, therapeutic paracentesis, electrolyte derangement, severe anemia.) Admission/Observation Consideration of admission/observation: Escalation of care including admission/observation considered Consult Healthcare Provider Management of the patient was discussed with: Hospitalist (Dr. Toussaint) Lab Data MDM Lab Attestation statement: I reviewed the patient's lab results. 09/18/24 15:37 09/18/24 15:37 Labs: Lab Results 09/18/24 Range/Units 15:37 WBC 6.8 (4.8-10.8) X10*3/uL RBC 2.54 L (4.60-5.80) X10*6/uL Hgb 7.2 L (14.0-18.0) g/dl Hct 23.0 L (42.0-52.0) % MCV 90.6 (80.0-98.0) fL MCH 28.3 (27.0-33.0) pg MCHC 31.3 (31.0-36.0) g/dl RDW 16.3 H (11.0-16.0) % Plt Count 176 (160-400) X10*3/uL MPV 9.3 L (9.4-12.4) fL Immature Gran % (Auto) 0.4 (0.0-0.4) % Neut % (Auto) 75.1 H (45-73) % Lymph % (Auto) 13.9 L (20-40) % [place] % (Auto) 7.8 (2-11) % Eos % (Auto) 2.5 (0-4) % Baso % (Auto) 0.3 (0-2) % Lymph # (Auto) 0.9 L (1.2-4.9) X10*3/uL [place] # (Auto) 0.5 (0.1-1.2) X10*3/uL Eos # (Auto) 0.2 (0.0-0.4) X10*3/uL Baso # (Auto) 0.0 (0.0-0.2) X10*3/uL Abs Immat Gran (auto) 0.03 (0.00-0.03) X10*3/uL Absolute Neuts (auto) 5.1 (2.0-8.3) x10*3/uL Absolute Nucleated RBC 0.000 (0.0-0.012) X10*3/uL Nucleated RBC % (auto) 0.0 (0.0-0.2) /100WBC Sodium 135 (135-145) mmol/L Potassium 5.8 H D (3.3-5.1) mmol/L Chloride 101 (96-108) mmol/L Carbon Dioxide 24 (22-29) mmol/L Anion Gap 16 (12-20) BUN 42 H (9-16) mg/dL Creatinine 1.23 (0.5-1.4) mg/dL Estim Creat Clear Calc 67.1 Estimated GFR 58 Random Glucose 155 H (60-115) mg/dL Calcium 8.3 L (8.4-10.2) mg/dL Ammonia 37 (13-55) umol/L Medications Administered Generic Name Dose Route Start Last Admin Trade Name Freq PRN Reason Stop Dose Admin Albumin Human 100 mls @ 133.333 mls/hr 09/18/24 15:00 09/18/24 15:48 Kedbumin 25 % IV 09/18/24 16:44 133.33 mls/hr Q1H LOTTIE Administration Discharge Plan Discharge Clinical Impression: Ascites, S/P abdominal paracentesis Patient Disposition: Admitted As Inpatient Prescriptions: No Action multivitamin Tablet 1 tab PO DAILY atorvastatin 10 mg Tablet 10 mg PO DAILY polyvinyl alcohol 1.4 % Drops 1 drp OPHTHALMIC (EYE) QID pantoprazole 20 mg Tablet,Delayed Release (Dr/Ec) 20 mg PO DAILY@0630 magnesium hydroxide [Milk of Magnesia] 400 mg/5 mL Suspension 30 ml PO DAILY PRN (Reason: Constipation, use first) tamsulosin [Flomax] 0.4 mg Capsule 0.8 mg PO BEDTIME bisacodyl 10 mg Suppository 10 mg WY DAILY PRN (Reason: Constipation, 8 hrs after MOM) Fleet Enema 19-7 gram/118 mL Enema 118 ml WY DAILY PRN (Reason: Constipation,8 hrs after bisacodyl) folic acid 1 mg Tablet 1 mg PO DAILY mirtazapine [Remeron] 15 mg Tablet 15 mg PO BEDTIME gabapentin 100 mg Capsule 200 mg PO BID glucagon 1 mg Recon Soln 1 mg SUBCUT Q20M PRN (Reason: Hypoglycemia) Rx Instructions: until target blood sugar attained finasteride 5 mg Tablet 5 mg PO DAILY midodrine 10 mg Tablet 10 mg PO TIDWM Rx Instructions: do not give last dose of day after 6PM or within 4 hrs of bedtime cholestyramine (with sugar) 4 gram Powder 4 g PO DAILY Rx Instructions: administer w/meal; avoid other meds within 1hr before or 4-6hr after dose apixaban 5 mg Tablet 5 mg PO BID baclofen 5 mg Tablet 5 mg PO TID magnesium oxide 400 mg magnesium Tablet 400 mg PO DAILY sodium bicarbonate 650 mg Tablet 650 mg PO BID Qty: 180 0RF spironolactone 25 mg tablet 12.5 mg PO DAILY dextrose [Glucose Gel] 40 % Gel 15 g PO Q15M PRN (Reason: Hypoglycemia) Rx Instructions: until symptoms of low blood sugar are controlled furosemide 20 mg Tablet 10 mg PO DAILY Rx Instructions: END DATE: 07/17/24 escitalopram oxalate 10 mg Tablet 10 mg PO DAILY lactulose 10 gram/15 mL solution 10 g PO Q12H PRN (Reason: Constipation) metformin 500 mg Tablet 500 mg PO BIDWMEAL Print Language: American
[2024-09-18 15:43] LABS: Basophils Percent Auto 0.3 % (0-2); Eosinophils Absolute Auto 0.2 X10*3/uL (0.0-0.4); Eosinophils Percent Auto 2.5 % (0-4); Hemoglobin 7.2 g/dl (14.0-18.0); Imm Gran Abs Auto 0.03 X10*3/uL (0.00-0.03); Imm Gran Pct Auto 0.4 % (0.0-0.4); Lymphocytes Absolute Auto 0.9 X10*3/uL (1.2-4.9); Lymphocytes Percent Auto 13.9 % (20-40); MANUAL DIFF FLAG NO; Mean Corpuscular HGB Conc 31.3 g/dl (31.0-36.0); Mean Corpuscular Hemoglobin 28.3 pg (27.0-33.0); Mean Corpuscular Volume 90.6 fL (80.0-98.0); Mean Platelet Volume 9.3 fL (9.4-12.4); Monocytes Absolute Auto 0.5 X10*3/uL (0.1-1.2); Monocytes Percent Auto 7.8 % (2-11); Neutrophils Absolute Auto 5.1 x10*3/uL (2.0-8.3); Neutrophils Percent Auto 75.1 % (45-73); Platelet Count 176 X10*3/uL (160-400); Red Blood Count 2.54 X10*6/uL (4.60-5.80); Red Cell Distribution Width 16.3 % (11.0-16.0); White Blood Count 6.8 X10*3/uL (4.8-10.8)
[2024-09-18] MEDS: Albumin Human 25 % 100 ML 133.33 ML IV ×2 (15:48→16:21)
--- NOTE | 2024-09-18 15:49 | PC.NURSE ---
MD at bedside to begin paracentesis; pt tolerating well; bp's remaining 100's systolic; Albumin to be gv per orders
[2024-09-18 15:51] LABS: Ammonia 37 umol/L (13-55)
[2024-09-18 15:52] LABS: INTERNATIONAL NORM RATIO 1.7 (0.9-1.1); Prothrombin Time 19.6 SEC (10.9-12.4)
[2024-09-18 15:57] LABS: Anion Gap 16 (12-20); Blood Urea Nitrogen 42 mg/dL (9-16); Calcium 8.3 mg/dL (8.4-10.2); Carbon Dioxide 24 mmol/L (22-29); Chloride 101 mmol/L (96-108); Creatinine Clr Calc Pharmacy 67.1; Estimated Glomerular Filt Rate 58; Glucose Random 155 mg/dL (60-115); Potassium 5.8 mmol/L (3.3-5.1); Sodium 135 mmol/L (135-145)
--- NOTE | 2024-09-18 15:58 | PC.NURSE ---
Total of 9 liters of abdominal fluids drained during paracentesis by Dr Garcia; pt tolerated well; 111/56bp at this time
--- OUTSIDE RECORDS SUMMARY | 2024-09-18 16:02 | XMS_ITS | Encounter Summary ---
[facility] Organization [facility] Address [address] [place] [address] Care Team Providers Care Hair Mixer Name Role Phone Priscilla Doan MD Primary Care Provider + Encounter Details Date Type Department Care Team (Late st Contact Info) Description 08/03/[address] [facility] [address] [facility] [address] Priscilla Doan MD [address] [address] Chronic kidney disease, unspecified Social History Tobacco [...] LAB CHEMISTRY METHOD 08/03/2024 12:54 PM EDT [facility] Potassium 5.5 3.5 - 5.5 mmol/L LAB CHEMISTRY METHOD 08/03/2024 12:54 PM T [facility] Chloride 102 96 - 110 mmol/L LAB CHEMISTRY METHOD 08/03/2024 12:54 PM T [facility] CO2 24 21 - 32 mmol/L LAB CHEMISTRY METHOD 08/03/2024 12:54 PM EDT [facility] Anion Gap 8 3 - 11 LAB CHEMISTRY METHOD 08/03/2024 12:54 PM EDT [facility] Glucose 86 70 - 100 mg/dL LAB CHEMISTRY METHOD 08/03/2024 12:54 PM EDT [facility] BUN 40(H) 5 - 25 mg/dL LAB CHEMISTRY METHOD 08/03/2024 12:54 PM EDT [facility] Creatinine 1.36(H) 0.70 - 1.30 mg/dL LAB CHEMISTRY METHOD 08/03/2024 12:54 PM EDT [facility] eGFR 56(L) >=60 mL/min/1. 73m2 LAB CHEMISTRY METHOD 08/03/2024 12:54 PM EDT [facility] Comment:Calculation based on the??Chronic Kidney Disease Epidemiology Collaboration (CKD-EPI) equation refit??without adjustment for race. BUN/Creatinine Ratio 29.4 LAB CHEMISTRY METHOD 08/03/2024 12:54 PM EDT [facility] Calcium 8.8 8.5 - 10.5 mg/dL LAB CHEMISTRY METHOD 08/03/2024 12:54 PM [facility] Blood Venous blood specimen / Unknown Venipuncture / Unknown 08/03/2024 8:00 AM EDT 08/03/2024 10:45 AM EDT us Priscilla Doan MD LAB BLOOD ORDERABLES Fin al Result [facility] [address] [place] [address], documented in this encounter Visit Diagnoses Diagnosis Chronic kidney disease, unspecified documented in this encounter Care Teams Hair Mixer Relationship Specialty Start Date End Date Priscilla Doan MD [address] [place] [id number] PCP - General Family Medicine 06/18/24 documented as of this encounter
--- OUTSIDE RECORDS SUMMARY | 2024-09-18 16:02 | XMS_ITS | Encounter Summary ---
Author Organization [facility] Address [address] [place] [address] Care Team Providers Care Hotel Associate Name Role Phone Priscilla Doan MD Primary Care Provider + Encounter Details Date Type Department Care Team (Late st Contact Info) Description 06/18/2024 Lab Requisition [facility] - [facility] Lab [address] [facility] [place] [address] Priscilla Doan MD [address] [address] Unspecified viral hepatitis C 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 [...] LAB CHEMISTRY METHOD 06/20/2024 2:17 PM EST [facility] Potassium 5.1 3.5 - 5.5 mmol/L LAB CHEMISTRY METHOD 06/20/2024 2:17 PM EST [facility] Chloride 104 96 - 110 [...] Result [facility] [address] [place] [address], * (ABNORMAL) Complete blood count (06/20/2024 7:40 [...] LAB HEMETOLOGY METHOD 06/20/2024 1:18 PM EST [facility] Platelets 252 130 - 400 K/mcL LAB HEMETOLOGY METHOD 06/20/2024 1:18 PM EST [facility] MPV 10.1 7.0 - 11.0 FL LAB HEMETOLOGY METHOD 06/20/2024 1:18 PM EST [facility] NRBC 0.0 <1.0 % LAB HEMETOLOGY METHOD 06/20/2024 1:18 PM EST [facility] NRBC Absolute 0.00 <0.10 K/mcL LAB HEMETOLOGY METHOD 06/20/2024 1:18 PM EST [facility] Blood Venous blood specimen / Unknown Venipuncture / Unknown 06/20/2024 7:40 AM EST 06/20/2024 12:03 PM EST us Priscilla Doan MD LAB BLOOD ORDERABLES Fin al Result [facility] [address] [place] [address], documented in this encounter Visit Diagnoses Diagnosis Unspecified viral hepatitis C 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 documented in this encounter Care Teams Hotel Associate Relationship Specialty Start Date End Date Priscilla Doan MD [address] [place] [id number] PCP - General Family Medicine 06/18/24 documented as of this encounter
--- OUTSIDE RECORDS SUMMARY | 2024-09-18 16:02 | XMS_ITS | Encounter Summary ---
Author Organization [facility] Address [address] [place] [address] Care Team Providers Care Manager Risk Management Name Role Phone Priscilla Doan MD Primary Care Provider + Encounter Details Date Type Department Care Team (Late st Contact Info) Description 09/01/2024 Lab Requisition [facility] - Main Lab [address] [facility] [place] [address] Priscilla Doan MD [address] [address] Chronic kidney disease, stage 3 unspecified (CMS/HCC V24, CMS/HCC V28) Social History Tobacco Use Types Packs/Day Years [...] Procedure Name Priority Date/Time Associated Diagnosis Comments POTASSIUM Routine 09/01/2024 7:44 AM EDT Chronic kidney disease, stage 3 unspecified (CMS/HCC V24, CMS/HCC V28) MAGNESIUM Routine 09/01/2024 7:44 AM EDT Chronic kidney disease, stage 3 unspecified (CMS/HCC V24, CMS/HCC V28) documented in this encounter Results * Potassium (09/01/2024 7:44 AM EDT) Potassium 4.6 3.5 - 5.5 mmol/L LAB CHEMISTRY METHOD 09/01/2024 11:50 AM EDT [facility] Blood Venous blood specimen / Unknown Venipuncture / Unknown 09/01/2024 7:44 AM EDT 09/01/2024 10:21 AM EDT Priscilla Doan MD LAB BLOOD ORDERABLES Fin al Result Performing Organization Address [facility]/ZIP Co de Phone Number [facility] [address] [place] [address], [place] [phone] * (ABNORMAL) Magnesium (09/01/2024 7:44 AM EDT) Magnesium 1.8(L) 1.9 - 2.6 mg/dL LAB CHEMISTRY METHOD 09/01/2024 11:50 AM EDT [facility] Blood Venous blood specimen / Unknown Venipuncture / Unknown 09/01/2024 7:44 AM EDT 09/01/2024 10:21 AM EDT Priscilla Doan MD LAB BLOOD ORDERABLES Fin al Result Performing Organization Address [facility] de Phone Number [facility] [address] [place] [address], [place] [phone] documented in this encounter Visit Diagnoses Diagnosis Chronic kidney disease, stage 3 unspecified (CMS/HCC V24, CMS/HCC V28) documented in this encounter Care Teams Manager Risk Management Relationship Specialty Start Date End Date Priscilla Doan MD [address] [place] [id number] PCP - General Family Medicine 06/18/24 documented as of this encounter
--- OUTSIDE RECORDS SUMMARY | 2024-09-18 16:02 | XMS_ITS | Encounter Summary ---
Author Organization [facility] Address [address] [place] [address] Care Team Providers Care Trimmer Meat Name Role Phone Priscilla Doan MD Primary Care Provider + Encounter Details Date Type Department Care Team (Late st Contact Info) Description 07/22/2024 Lab Requisition [facility] - Main Lab [address] [facility] [place] [address] Priscilla Doan MD [address] [facility] [address] [place] [address] Hyperkalemia; Unspecified cirrhosis of liver (CMS/HCC V24, CMS/HCC V28); Unspecified viral hepatitis C 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; Type 2 diabetes mellitus without complications (CMS/HCC V24, CMS/HCC V28); Other cirrhosis of liver (CMS/HCC V24, CMS/HCC V28) Social History Tobacco [...] mmol/L LAB CHEMISTRY METHOD 07/22/2024 11:[address] [facility] Potassium 4.4 3.5 - 5.5 mmol/L LAB CHEMISTRY METHOD 07/22/2024 11:[address] [facility] Chloride 106 96 - 110 mmol/L LAB CHEMISTRY METHOD 07/22/2024 11:[address] [facility] CO2 23 21 - 32 mmol/L LAB CHEMISTRY METHOD 07/22/2024 11:[address] [facility] Anion Gap 9 3 - 11 LAB CHEMISTRY METHOD 07/22/2024 11:[address] [facility] Glucose 122(H) 70 - 100 mg/dL LAB CHEMISTRY METHOD 07/22/2024 11:[address] [facility] BUN 28(H) 5 - 25 mg/dL LAB CHEMISTRY METHOD 07/22/2024 11:[address] [facility] Creatinine 1.06 0.70 - 1.30 mg/dL LAB CHEMISTRY METHOD 07/22/2024 11:[address] [facility] eGFR 76 >=60 mL/min/1. 73m2 LAB CHEMISTRY METHOD 07/22/2024 11:[address] [facility] Comment:Calculation based on the??Chronic Kidney Disease Epidemiology Collaboration (CKD-EPI) equation refit??without adjustment for race. BUN/Creatinine Ratio 26.4 LAB CHEMISTRY METHOD 07/22/2024 11:[address] [facility] Calcium 8.4(L) 8.5 - 10.5 mg/dL LAB CHEMISTRY METHOD 07/22/2024 11:[address] [facility] AST (SGOT) 26 10 - 42 unit/L LAB CHEMISTRY METHOD 07/22/2024 11:[address] [facility] ALT (SGPT) 22 10 - 60 unit/L LAB CHEMISTRY METHOD 07/22/2024 11:[address] [facility] Alkaline Phosphatase 81 42 - 121 unit/L LAB CHEMISTRY METHOD 07/22/2024 11:[address] [facility] Total Protein 5.7(L) 6.0 - 8.0 g/dL LAB CHEMISTRY METHOD 07/22/2024 11:[address] [facility] Albumin 2.6(L) 3.2 - 5.0 g/dL LAB CHEMISTRY METHOD 07/22/2024 11:[address] [facility] Total Bilirubin 0.2 0.0 - 1.4 mg/dL LAB CHEMISTRY METHOD 07/22/2024 11:[address] [facility] Blood Venous blood specimen / Unknown Venipuncture / Unknown 07/22/2024 5:21 AM EST 07/22/2024 10:32 AM EST us Priscilla Doan MD LAB BLOOD ORDERABLES Fin al Result [facility] [address] [place] [address], * (ABNORMAL) Complete blood count (07/22/2024 5:21 AM EST) WBC 5.8 4.8 - 10.8 K/mcL LAB HEMETOLOGY METHOD 07/22/2024 10:[address] [facility] RBC 3.20(L) 4.50 - 5.50 M/mcL LAB HEMETOLOGY METHOD 07/22/2024 10:[address] [facility] Hemoglobin 8.8(L) 13.5 - 17.5 g/dL LAB HEMETOLOGY METHOD 07/22/2024 10:[address] [facility] Hematocrit 27.7(L) 42.0 - 54.0 % LAB HEMETOLOGY METHOD 07/22/2024 10:44 AM EST [facility] MCV 87.9 79.0 - 98.0 FL LAB HEMETOLOGY METHOD 07/22/2024 10:44 AM EST [facility] MCH 27.9 27.0 - 32.0 pcg LAB HEMETOLOGY METHOD 07/22/2024 10:[address] [facility] MCHC 31.8(L) 32.0 - 37.0 g/dL LAB HEMETOLOGY METHOD 07/22/2024 10:44 AM EST [facility] RDW 16.1(H) 11.0 - 15.0 % LAB HEMETOLOGY METHOD 07/22/2024 10:44 AM EST [facility] Platelets 192 130 - 400 K/mcL LAB HEMETOLOGY METHOD 07/22/2024 10:44 AM EST [facility] MPV 10.5 7.0 - 11.0 FL LAB HEMETOLOGY METHOD 07/22/2024 10:44 AM EST [facility] NRBC 0.0 <1.0 % LAB HEMETOLOGY METHOD 07/22/2024 10:[address] [facility] NRBC Absolute 0.00 <0.10 K/mcL LAB HEMETOLOGY METHOD 07/22/2024 10:[address] [facility] Blood Venous blood specimen / Unknown Venipuncture / Unknown 07/22/2024 5:21 AM EST 07/22/2024 10:32 AM EST us Priscilla Doan MD LAB BLOOD ORDERABLES Fin al Result [facility] [address] [place] [address], documented in this encounter Visit Diagnoses Diagnosis Hyperkalemia Hyperpotassemia Unspecified cirrhosis of liver (CMS/HCC V24, CMS/HCC V28) Unspecified viral hepatitis C 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 Type 2 diabetes mellitus without complications (CMS/HCC V24, CMS/HCC V28) Other cirrhosis of liver (CMS/HCC V24, CMS/HCC V28) documented in this encounter Care Teams Trimmer Meat Relationship Specialty Start Date End Date Priscilla Doan MD [address] [id number] PCP - General Family Medicine 06/18/24 documented as of this encounter
--- OUTSIDE RECORDS SUMMARY | 2024-09-18 16:02 | XMS_ITS | Encounter Summary ---
[facility] Organization [facility] Address [address] [place] [address] Care Team Providers Care Education Diagnostician Name Role Phone Priscilla Doan MD Primary Care Provider + Encounter Details Date Type Department Care Team (Late st Contact Info) Description 08/11/2024 Lab Requisition [facility] - Main Lab [address] [facility] [address] Priscilla Doan MD [address] [id number] Type 2 diabetes mellitus without complications (CMS/HCC V24, CMS/HCC V28); Unspecified viral hepatitis C 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 [...] LAB CHEMISTRY METHOD 08/12/2024 10:48 AM EDT [facility] Potassium 5.3 3.5 - 5.5 mmol/L LAB CHEMISTRY METHOD 08/12/2024 10:48 AM [facility] Chloride 102 96 - 110 mmol/L LAB CHEMISTRY METHOD 08/12/2024 10:48 AM [facility] CO2 28 21 - 32 mmol/L LAB CHEMISTRY METHOD 08/12/2024 10:48 AM [facility] Anion Gap 6 3 - 11 LAB CHEMISTRY METHOD 08/12/2024 10:48 AM [facility] Glucose 83 70 - 100 mg/dL LAB CHEMISTRY METHOD 08/12/2024 10:48 AM [facility] BUN 29(H) 5 - 25 mg/dL LAB CHEMISTRY METHOD 08/12/2024 10:48 AM [facility] Creatinine 1.12 0.70 - 1.30 mg/dL LAB CHEMISTRY METHOD 08/12/2024 10:48 AM [facility] eGFR 71 >=60 mL/min/1. 73m2 LAB CHEMISTRY METHOD 08/12/2024 10:48 AM [facility] Comment:Calculation based on the??Chronic Kidney Disease Epidemiology Collaboration (CKD-EPI) equation refit??without adjustment for race. BUN/Creatinine Ratio 25.9 LAB CHEMISTRY METHOD 08/12/2024 10:48 AM [facility] Calcium 8.5 8.5 - 10.5 mg/dL LAB CHEMISTRY METHOD 08/12/2024 10:48 AM [facility] AST (SGOT) 19 10 - 42 unit/L LAB CHEMISTRY METHOD 08/12/2024 10:48 AM [facility] ALT (SGPT) 20 10 - 60 unit/L LAB CHEMISTRY METHOD 08/12/2024 10:48 AM [facility] Alkaline Phosphatase 68 42 - 121 unit/L LAB CHEMISTRY METHOD 08/12/2024 10:48 AM [facility] Total Protein 5.5(L) 6.0 - 8.0 g/dL LAB CHEMISTRY METHOD 08/12/2024 10:[address] [facility] Albumin 2.0(L) 3.2 - 5.0 g/dL LAB CHEMISTRY METHOD 08/12/2024 10:[address] [facility] Total Bilirubin 0.3 0.0 - 1.4 mg/dL LAB CHEMISTRY METHOD 08/12/2024 10:[address] [facility] Blood Venous blood specimen / Unknown Venipuncture / Unknown 08/12/2024 5:30 AM EDT 08/12/2024 10:48 AM EDT us Priscilla Doan MD LAB BLOOD ORDERABLES Fin al Result [facility] [address] [place] [address], * (ABNORMAL) Complete blood count (08/12/2024 5:30 AM EDT) WBC 5.9 4.8 - 10.8 K/mcL LAB HEMETOLOGY METHOD 08/12/2024 10:[address] [facility] RBC 3.00(L) 4.50 - 5.50 M/mcL LAB HEMETOLOGY METHOD 08/12/2024 10:15 AM [facility] Hemoglobin 8.1(L) 13.5 - 17.5 g/dL LAB HEMETOLOGY METHOD 08/12/2024 10:[address] [facility] Hematocrit 26.3(L) 42.0 - 54.0 % LAB HEMETOLOGY METHOD 08/12/2024 10:[address] [facility] MCV 88.3 79.0 - 98.0 FL LAB HEMETOLOGY METHOD 08/12/2024 10:15 AM [facility] MCH 27.2 27.0 - 32.0 pcg LAB HEMETOLOGY METHOD 08/12/2024 10:[address] [facility] MCHC 30.8(L) 32.0 - 37.0 g/dL LAB HEMETOLOGY METHOD 08/12/2024 10:[address] [facility] RDW 15.0 11.0 - 15.0 % LAB HEMETOLOGY METHOD 08/12/2024 10:[address] [facility] Platelets 242 130 - 400 K/mcL LAB HEMETOLOGY METHOD 08/12/2024 10:[address] [facility] MPV 9.8 7.0 - 11.0 FL LAB HEMETOLOGY METHOD 08/12/2024 10:[address] [facility] NRBC 0.0 <1.0 % LAB HEMETOLOGY METHOD 08/12/2024 10:[address] [facility] NRBC Absolute 0.00 <0.10 K/mcL LAB HEMETOLOGY METHOD 08/12/2024 10:[address] [facility] Blood Venous blood specimen / Unknown Venipuncture / Unknown 08/12/2024 5:30 AM EDT 08/12/2024 10:15 AM EDT us Priscilla Doan MD LAB BLOOD ORDERABLES Fin al Result [facility] [address] [place] [address], documented in this encounter Visit Diagnoses Diagnosis Type 2 diabetes mellitus without complications (CMS/HCC V24, CMS/HCC V28) Unspecified viral hepatitis C 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 documented in this encounter Care Teams Education Diagnostician Relationship Specialty Start Date End Date Priscilla Doan MD [address] [place] [phone] PCP - General Family Medicine 06/18/24 documented as of this encounter
--- OUTSIDE RECORDS SUMMARY | 2024-09-18 16:02 | XMS_ITS | Encounter Summary ---
Author Organization [facility] Address [address] [place] [address] Care Team Providers Care Self Pay Specialist Name Role Phone Elder, Priscilla Childs MD Primary Care Provider + Encounter Details Date Type Department Care Team (Late st Contact Info) Description 08/09/[address] [facility] [address] [place] [address] Inessa Stallings NP [address] [place] [address] Essential (primary) hypertension Social History [...] LAB CHEMISTRY METHOD 08/09/2024 12:14 PM EDT [facility] Potassium 4.5 3.5 - 5.5 mmol/L LAB CHEMISTRY METHOD 08/09/2024 12:14 PM EDT [facility] Chloride 102 96 - 110 mmol/L LAB CHEMISTRY METHOD 08/09/2024 12:14 PM T [facility] CO2 27 21 - 32 mmol/L LAB CHEMISTRY METHOD 08/09/2024 12:14 PM [facility] Anion Gap 6 3 - 11 LAB CHEMISTRY METHOD 08/09/2024 12:14 PM [facility] Glucose 77 70 - 100 mg/dL LAB CHEMISTRY METHOD 08/09/2024 12:14 PM [facility] BUN 31(H) 5 - 25 mg/dL LAB CHEMISTRY METHOD 08/09/2024 12:14 PM [facility] Creatinine 1.11 0.70 - 1.30 mg/dL LAB CHEMISTRY METHOD 08/09/2024 12:14 PM [facility] eGFR 72 >=60 mL/min/1. 73m2 LAB CHEMISTRY METHOD 08/09/2024 12:14 PM [facility] Comment:Calculation based on the??Chronic Kidney Disease Epidemiology Collaboration (CKD-EPI) equation refit??without adjustment for race. BUN/Creatinine Ratio 27.9 LAB CHEMISTRY METHOD 08/09/2024 12:14 PM [facility] Calcium 8.2(L) 8.5 - 10.5 mg/dL LAB CHEMISTRY METHOD 08/09/2024 12:14 PM [facility] AST (SGOT) 18 10 - 42 unit/L LAB CHEMISTRY METHOD 08/09/2024 12:14 PM [facility] ALT (SGPT) 15 10 - 60 unit/L LAB CHEMISTRY METHOD 08/09/2024 12:14 PM [facility] Alkaline Phosphatase 51 42 - 121 unit/L LAB CHEMISTRY METHOD 08/09/2024 12:14 PM [facility] Total Protein 4.8(L) 6.0 - 8.0 g/dL LAB CHEMISTRY METHOD 08/09/2024 12:14 PM [facility] Albumin 2.1(L) 3.2 - 5.0 g/dL LAB CHEMISTRY METHOD 08/09/2024 12:14 PM EDT [facility] Total Bilirubin 0.3 0.0 - 1.4 mg/dL LAB CHEMISTRY METHOD 08/09/2024 12:14 PM EDT [facility] Blood Venous blood specimen / Unknown Venipuncture / Unknown 08/09/2024 7:12 AM EDT 08/09/2024 10:46 AM EDT Inessa Stallings [employer] LAB BLOOD ORDERABLES Final Resul t [facility] [address] [place] [address], * (ABNORMAL) Complete blood count (08/09/2024 7:12 AM EDT) WBC 4.3(L) 4.8 - 10.8 K/mcL LAB HEMETOLOGY METHOD 08/09/2024 11:28 AM [facility] RBC 2.70(L) 4.50 - 5.50 M/mcL LAB HEMETOLOGY METHOD 08/09/2024 11:28 AM [facility] Hemoglobin 7.3(L) 13.5 - 17.5 g/dL LAB HEMETOLOGY METHOD 08/09/2024 11:28 AM [facility] Hematocrit 24.0(L) 42.0 - 54.0 % LAB HEMETOLOGY METHOD 08/09/2024 11:28 AM [facility] MCV 90.2 79.0 - 98.0 FL LAB HEMETOLOGY METHOD 08/09/2024 11:28 AM [facility] MCH 27.4 27.0 - 32.0 pcg LAB HEMETOLOGY METHOD 08/09/2024 11:28 AM [facility] MCHC 30.4(L) 32.0 - 37.0 g/dL LAB HEMETOLOGY METHOD 08/09/2024 11:28 AM EDT [facility] RDW 14.9 11.0 - 15.0 % LAB HEMETOLOGY METHOD 08/09/2024 11:28 AM EDT [facility] Platelets 195 130 - 400 K/mcL LAB HEMETOLOGY METHOD 08/09/2024 11:28 AM EDT [facility] MPV 10.3 7.0 - 11.0 FL LAB HEMETOLOGY METHOD 08/09/2024 11:28 AM EDT [facility] NRBC 0.0 <1.0 % LAB HEMETOLOGY METHOD 08/09/2024 11:28 AM EDT [facility] NRBC Absolute 0.00 <0.10 K/mcL LAB HEMETOLOGY METHOD 08/09/2024 11:28 AM T [facility] Blood Venous blood specimen / Unknown Venipuncture / Unknown 08/09/2024 7:12 AM EDT 08/09/2024 10:46 AM EDT [facility] LAB BLOOD ORDERABLES Final Resul t [facility] [address] [place] [address], [place] [phone] documented in this encounter Visit Diagnoses Diagnosis Essential (primary) hypertension Unspecified essential hypertension documented in this encounter Care Teams Self Pay Specialist Relationship Specialty Start Date End Date Priscilla Doan MD [address] [phone] PCP - General Family Medicine 06/18/24 documented as of this encounter
--- OUTSIDE RECORDS SUMMARY | 2024-09-18 16:02 | XMS_ITS | Encounter Summary ---
Author Organization [facility] Address [address] [place] [address] Care Team Providers Care Community Service Worker Name Role Phone Priscilla Doan MD Primary Care Provider + Encounter Details Date Type Department Care Team (Late st Contact Info) Description 07/28/2024 Lab Requisition [facility] - Main Lab [address] [facility] [place] [address] Priscilla Doan MD [address] [address] Unspecified viral hepatitis C 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; Type 2 diabetes mellitus without complications (CMS/HCC V24, CMS/HCC V28) Social History Tobacco [...] LAB CHEMISTRY METHOD 2024 12:36 PM EST [facility] Potassium 5.6(H) 3.5 - 5.5 mmol/L LAB CHEMISTRY METHOD 2024 12:36 PM [facility] Chloride 104 96 - 110 mmol/L LAB CHEMISTRY METHOD 2024 12:36 PM [facility] CO2 22 21 - 32 mmol/L LAB CHEMISTRY METHOD 2024 12:36 PM [facility] Anion Gap 11 3 - 11 LAB CHEMISTRY METHOD 2024 12:36 PM [facility] Glucose 132(H) 70 - 100 mg/dL LAB CHEMISTRY METHOD 2024 12:36 PM [facility] BUN 34(H) 5 - 25 mg/dL LAB CHEMISTRY METHOD 2024 12:36 PM [facility] Creatinine 1.26 0.70 - 1.30 mg/dL LAB CHEMISTRY METHOD 2024 12:36 PM [facility] eGFR 62 >=60 mL/min/1. 73m2 LAB CHEMISTRY METHOD 2024 12:36 PM [facility] Comment:Calculation based on the??Chronic Kidney Disease Epidemiology Collaboration (CKD-EPI) equation refit??without adjustment for race. BUN/Creatinine Ratio 27.0 LAB CHEMISTRY METHOD 2024 12:36 PM [facility] Calcium 8.7 8.5 - 10.5 mg/dL LAB CHEMISTRY METHOD 2024 12:36 PM [facility] AST (SGOT) 19 10 - 42 unit/L LAB CHEMISTRY METHOD 2024 12:36 PM [facility] ALT (SGPT) 18 10 - 60 unit/L LAB CHEMISTRY METHOD 2024 12:36 PM [facility] Alkaline Phosphatase 66 42 - 121 unit/L LAB CHEMISTRY METHOD 2024 12:36 PM [facility] Total Protein 5.9(L) 6.0 - 8.0 g/dL LAB CHEMISTRY METHOD 2024 12:36 PM [facility] Albumin 2.1(L) 3.2 - 5.0 g/dL LAB CHEMISTRY METHOD 2024 12:36 PM [facility] Total Bilirubin 0.2 0.0 - 1.4 mg/dL LAB CHEMISTRY METHOD 2024 12:36 PM [facility] Blood Venous blood specimen / Unknown Venipuncture / Unknown 2024 9:00 AM EST 2024 11:03 AM EST us Priscilla Doan MD LAB BLOOD ORDERABLES Fin al Result [facility] [address] [place] [address], * (ABNORMAL) Complete blood count (2024 9:00 AM EST) WBC 5.9 4.8 - 10.8 K/mcL LAB HEMETOLOGY METHOD 2024 11:35 AM [facility] RBC 3.10(L) 4.50 - 5.50 M/mcL LAB HEMETOLOGY METHOD 2024 11:35 AM [facility] Hemoglobin 8.6(L) 13.5 - 17.5 g/dL LAB HEMETOLOGY METHOD 2024 11:35 AM [facility] Hematocrit 28.3(L) 42.0 - 54.0 % LAB HEMETOLOGY METHOD 2024 11:35 AM [facility] MCV 91.3 79.0 - 98.0 FL LAB HEMETOLOGY METHOD 2024 11:35 AM [facility] MCH 27.7 27.0 - 32.0 pcg LAB HEMETOLOGY METHOD 2024 11:35 AM [facility] MCHC 30.4(L) 32.0 - 37.0 g/dL LAB HEMETOLOGY METHOD 2024 11:35 AM EST [facility] RDW 15.4(H) 11.0 - 15.0 % LAB HEMETOLOGY METHOD 2024 11:35 AM EST [facility] Platelets 206 130 - 400 K/mcL LAB HEMETOLOGY METHOD 2024 11:35 AM EST [facility] MPV 9.9 7.0 - 11.0 FL LAB HEMETOLOGY METHOD 2024 11:35 AM EST [facility] NRBC 0.0 <1.0 % LAB HEMETOLOGY METHOD 2024 11:35 AM EST [facility] NRBC Absolute 0.00 <0.10 K/mcL LAB HEMETOLOGY METHOD 2024 11:35 AM [facility] Blood Venous blood specimen / Unknown Venipuncture / Unknown 2024 9:00 AM EST 2024 11:03 AM EST us Priscilla Doan MD LAB BLOOD ORDERABLES Fin al Result [facility] [address] [place] [address], documented in this encounter Visit Diagnoses Diagnosis Unspecified viral hepatitis C 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 Type 2 diabetes mellitus without complications (CMS/HCC V24, CMS/HCC V28) documented in this encounter Care Teams Community Service Worker Relationship Specialty Start Date End Date Priscilla Doan MD [address] [place] [phone] PCP - General Family Medicine 06/18/24 documented as of this encounter
--- OUTSIDE RECORDS SUMMARY | 2024-09-18 16:02 | XMS_ITS | Encounter Summary ---
Author Organization [facility] Address [address] [place] [address] Care Team Providers Care Leather Coater Name Role Phone Priscilla Doan MD Primary Care Provider + Encounter Details Date Type Department Care Team (Late st Contact Info) Description 08/18/2024 Lab Requisition [facility] - Main Lab [address] [facility] [place] [address] Priscilla Doan MD [address] [address] Unspecified viral hepatitis C 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; [...] LAB CHEMISTRY METHOD 08/19/2024 11:58 AM EDT [facility] Potassium 5.5 3.5 - 5.5 mmol/L LAB CHEMISTRY METHOD 08/19/2024 11:58 AM [facility] Chloride 99 96 - 110 mmol/L LAB CHEMISTRY METHOD 08/19/2024 11:58 AM [facility] CO2 27 21 - 32 mmol/L LAB CHEMISTRY METHOD 08/19/2024 11:58 AM [facility] Anion Gap 6 3 - 11 LAB CHEMISTRY METHOD 08/19/2024 11:58 AM [facility] Glucose 81 70 - 100 mg/dL LAB CHEMISTRY METHOD 08/19/2024 11:58 AM [facility] BUN 42(H) 5 - 25 mg/dL LAB CHEMISTRY METHOD 08/19/2024 11:58 AM [facility] Creatinine 1.64(H) 0.70 - 1.30 mg/dL LAB CHEMISTRY METHOD 08/19/2024 11:58 AM [facility] eGFR 45(L) >=60 mL/min/1. 73m2 LAB CHEMISTRY METHOD 08/19/2024 11:58 AM [facility] Comment:Calculation based on the??Chronic Kidney Disease Epidemiology Collaboration (CKD-EPI) equation refit??without adjustment for race. BUN/Creatinine Ratio 25.6 LAB CHEMISTRY METHOD 08/19/2024 11:58 AM [facility] Calcium 8.5 8.5 - 10.5 mg/dL LAB CHEMISTRY METHOD 08/19/2024 11:58 AM [facility] AST (SGOT) 23 10 - 42 unit/L LAB CHEMISTRY METHOD 08/19/2024 11:58 AM [facility] ALT (SGPT) 23 10 - 60 unit/L LAB CHEMISTRY METHOD 08/19/2024 11:58 AM [facility] Alkaline Phosphatase 77 42 - 121 unit/L LAB CHEMISTRY METHOD 08/19/2024 11:58 AM [facility] Total Protein 5.4(L) 6.0 - 8.0 g/dL LAB CHEMISTRY METHOD 08/19/2024 11:58 AM EDT [facility] Albumin 1.8(L) 3.2 - 5.0 g/dL LAB CHEMISTRY METHOD 08/19/2024 11:58 AM EDT [facility] Total Bilirubin 0.2 0.0 - 1.4 mg/dL LAB CHEMISTRY METHOD 08/19/2024 11:58 AM EDT [facility] Blood Venous blood specimen / Unknown Venipuncture / Unknown 08/19/2024 6:54 AM EDT 08/19/2024 10:39 AM EDT us Priscilla Doan MD LAB BLOOD ORDERABLES Fin al Result [facility] [address] [place] [address], * (ABNORMAL) Complete blood count (08/19/2024 6:54 AM EDT) WBC 6.3 4.8 - 10.8 K/mcL LAB HEMETOLOGY METHOD 08/19/2024 10:59 AM [facility] RBC 2.60(L) 4.50 - 5.50 M/mcL LAB HEMETOLOGY METHOD 08/19/2024 10:59 AM T [facility] Hemoglobin 7.3(L) 13.5 - 17.5 g/dL LAB HEMETOLOGY METHOD 08/19/2024 10:59 AM EDT [facility] Hematocrit 23.8(L) 42.0 - 54.0 % LAB HEMETOLOGY METHOD 08/19/2024 10:59 AM EDT [facility] MCV 90.2 79.0 - 98.0 FL LAB HEMETOLOGY METHOD 08/19/2024 10:59 AM [facility] MCH 27.7 27.0 - 32.0 pcg LAB HEMETOLOGY METHOD 08/19/2024 10:59 AM EDT [facility] MCHC 30.7(L) 32.0 - 37.0 g/dL LAB HEMETOLOGY METHOD 08/19/2024 10:59 AM EDT [facility] RDW 15.6(H) 11.0 - 15.0 % LAB HEMETOLOGY METHOD 08/19/2024 10:59 AM EDT [facility] Platelets 234 130 - 400 K/mcL LAB HEMETOLOGY METHOD 08/19/2024 10:59 AM EDT [facility] MPV 10.0 7.0 - 11.0 FL LAB HEMETOLOGY METHOD 08/19/2024 10:59 AM EDT [facility] NRBC 0.0 <1.0 % LAB HEMETOLOGY METHOD 08/19/2024 10:59 AM EDT [facility] NRBC Absolute 0.00 <0.10 K/mcL LAB HEMETOLOGY METHOD 08/19/2024 10:59 AM EDT [facility] Blood Venous blood specimen / Unknown Venipuncture / Unknown 08/19/2024 6:54 AM EDT 08/19/2024 10:39 AM EDT us Priscilla Doan MD LAB BLOOD ORDERABLES Fin al Result [facility] [address] [place] [address], documented in this encounter Visit Diagnoses Diagnosis Unspecified viral hepatitis C 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 Type 2 diabetes mellitus without complications (CMS/HCC V24, CMS/HCC V28) documented in this encounter Care Teams Leather Coater Relationship Specialty Start Date End Date Priscilla Doan MD [address] [place] [phone] PCP - General Family Medicine 06/18/24 documented as of this encounter
--- OUTSIDE RECORDS SUMMARY | 2024-09-18 16:02 | XMS_ITS | Clinical Summary ---
Author Organization 299 [facility] Address [address] [place] [address] Phone Care Team Providers Care Chainstitch Sewing Machine Operator Name Role Phone Priscilla Doan MD Primary Care Provider + Encounters Date Type Department Care Team Description 09/01/2024 Lab Requisition [facility] Lab [address] [place] [phone] Priscilla Doan MD Chronic kidney disease, stage 3 unspecified (CMS/HCC V24, CMS/HCC V28) 08/23/2024 Lab Requisition [facility] - Main Lab [address] [place] [phone] Priscilla Doan MD Essential (primary) hypertension 08/18/2024 Lab Requisition [facility] Lab [address] [place] [phone] Priscilla Doan MD Unspecified viral hepatitis C 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; Type 2 diabetes mellitus without complications (CMS/HCC V24, CMS/HCC V28) 08/18/2024 Lab Requisition [facility] Lab [address] [place] [phone] Priscilla Doan MD Unspecified cirrhosis of liver (CMS/HCC V24, CMS/HCC V28); Type 2 diabetes mellitus without complications (CMS/HCC V24, CMS/HCC V28); Hypertensive chronic kidney disease with stage 1 through stage 4 chronic kidney disease, or unspecified chronic kidney disease 08/11/2024 Lab Requisition [facility] - Main Lab [address] [place] [phone] Priscilla Doan MD Type 2 diabetes mellitus without complications (CMS/HCC V24, CMS/HCC V28); Unspecified viral hepatitis C 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 08/09/2024 Lab Requisition [facility] - Main Lab [address] [place] [phone] Inessa Stallings NP Essential (primary) hypertension 08/04/2024 Lab Requisition [facility] - Main Lab [address] [place] [phone] Priscilla Doan MD Unspecified viral hepatitis C 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; Type 2 diabetes mellitus without complications (CMS/HCC V24, CMS/HCC V28) 08/03/2024 Lab Requisition [facility] Main Lab [address] [place] [phone] Priscilla Doan MD Chronic kidney disease, unspecified 07/30/2024 Lab Requisition [facility] Main Lab [address] [place] [phone] Priscilla Doan MD Essential (primary) hypertension; Type 2 diabetes mellitus without complications (CMS/HCC V24, CMS/HCC V28) 07/28/2024 Lab Requisition [facility] - Main Lab [address] [place] [phone] Priscilla Doan MD Unspecified viral hepatitis C 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; Type 2 diabetes mellitus without complications (CMS/HCC V24, CMS/HCC V28) 07/26/2024 Lab Requisition [facility] Main Lab [address] [place] [phone] Priscilla Doan MD Type 2 diabetes mellitus without complications (CMS/HCC V24, CMS/HCC V28); Chronic viral hepatitis C (CMS/HCC V24, CMS/HCC V28); Chronic kidney disease, stage 3 unspecified (CMS/HCC V24, CMS/HCC V28) 07/22/2024 Lab Requisition [facility] - Main Lab [address] [place] [phone] Priscilla Doan MD Hyperkalemia; Unspecified cirrhosis of liver (CMS/HCC V24, CMS/HCC V28); Unspecified viral hepatitis C 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; Type 2 diabetes mellitus without complications (CMS/HCC V24, CMS/HCC V28); Other cirrhosis of liver (CMS/HCC V24, CMS/HCC V28) 07/15/2024 Lab Requisition [facility] Lab [address] [place] [phone] Priscilla Doan MD Unspecified viral hepatitis C 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 07/15/2024 Lab Requisition [facility] Lab [address] [place] [phone] Noman Pastrana MD Retention of urine, unspecified 07/14/2024 Lab Requisition [facility] Lab [address] [place] [phone] Priscilla Doan MD Unspecified cirrhosis of liver ([facility]/HCC V24, [facility] V28) 07/09/2024 Lab Requisition [facility] Lab [address] [place] [phone] Priscilla Doan MD Unspecified viral hepatitis C 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 07/01/2024 Lab Requisition [facility] Lab [address] [place] [phone] Priscilla Doan MD Unspecified viral hepatitis C 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 06/30/2024 Lab Requisition [facility] Lab [address] [place] [phone] Noman Pastrana PA Unspecified viral hepatitis C 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; Acute embolism and thrombosis of unspecified deep veins of right lower extremity (CMS/HCC V24, CMS/HCC V28); Unspecified cirrhosis of liver (CMS/HCC V24, CMS/HCC V28) 06/24/2024 Lab Requisition [facility] Lab [address] [place] [phone] Priscilla Doan MD Unspecified viral hepatitis C 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 06/23/2024 Lab Requisition [facility] - Main Lab 299 [facility] [place] [phone] Priscilla Doan MD Unspecified cirrhosis of liver (CMS/HCC V24, CMS/HCC V28) 06/18/2024 Lab Requisition [facility] - Main Lab 299 [facility] [place] [address] Priscilla Doan MD Unspecified viral [...] - Risk 3-dose series) 2015 RSV Immunization Adult Patients (1 - Risk 60-74 years 1-dose series) 2015 COVID-19 Vaccine ( season) 2024 Abdominal Aortic Aneurysm (AAA) Screen 06/11/2024 Cholesterol Screening (Lipid Panel) 06/11/2024 Colorectal Cancer Screening: Colonoscopy 06/11/2024 Depression Screening 06/11/2024 Falls Risk Assessment 06/11/2024 Hepatitis C Screening 06/11/2024 Medicare Annual Wellness Visit 06/11/2024 Social Influencers of Health Screening 06/11/2024 Diabetes: Annual Urine Albumin-Creatinine Ratio (uACR) 07/22/2024 Influenza Vaccine (Season Ended) 2025 Diabetes: Blood Sugar Control Test (HGBA1C) 02/01/2025 08/01/2024 Diabetes: Annual GFR (Glomerular Filtration Rate) 08/23/2025 08/23/2024, 08/19/2024, 08/18/2024, Additional history exists Hypertension/CHF/CAD Annual BMP Blood Test 08/23/2025 08/23/2024, 08/19/2024, 08/18/2024, Additional history exists HIB [...] age to complete this topic Meningococcal B Vaccine Aged Out No l onger eligible based on patient's age to complete [...] stage 3 unspecified (CMS/HCC V24, CMS/HCC V28) BASIC METABOLIC PANEL Routine 08/23/2024 5:05 AM [...] coma from Last 3 Months Results * Potassium (09/01/2024 7:44 AM EDT) Potassium 4.6 3.5 - 5.5 mmol/L LAB CHEMISTRY METHOD 09/01/2024 11:50 AM EDT [facility] Blood Venous blood specimen / Unknown Venipuncture / Unknown 09/01/2024 7:44 AM EDT 09/01/2024 10:21 AM EDT us Priscilla Doan MD LAB BLOOD ORDERABLES Fin al Result [facility] [address] [place] [address], [place] [phone] * (ABNORMAL) Magnesium (09/01/2024 7:44 AM EDT) [facility] Magnesium 1.8(L) 1.9 - 2.6 mg/dL LAB CHEMISTRY METHOD 09/01/2024 11:50 AM EDT [facility] Blood Venous blood specimen / Unknown Venipuncture / Unknown 09/01/2024 7:44 AM EDT 09/01/2024 10:21 AM EDT us Priscilla Doan MD LAB BLOOD ORDERABLES Fin al Result [facility] [address] [place] [address], [place] [phone] * (ABNORMAL) Complete blood count (08/23/2024 5:05 AM EDT) Only the most recent of14 resultswithin the time period is included. [facility] WBC 5.8 4.8 - 10.8 K/mcL LAB HEMETOLOGY METHOD 08/23/2024 10:45 AM EDT [facility] RBC 2.60(L) 4.50 - 5.50 M/mcL LAB HEMETOLOGY METHOD [facility] Hemoglobin 7.2(L) 13.5 - 17.5 g/dL LAB HEMETOLOGY METHOD 08/23/2024 10:45 AM EDT [facility] Hematocrit 23.9(L) 42.0 - 54.0 % LAB HEMETOLOGY METHOD 08/23/2024 10:45 AM EDT [facility] MCV 90.9 79.0 - 98.0 FL LAB HEMETOLOGY METHOD 08/23/2024 10:[facility] MCH 27.4 27.0 - 32.0 pcg LAB HEMETOLOGY METHOD 08/23/2024 10:45 AM EDT [facility] MCHC 30.1(L) 32.0 - 37.0 g/dL LAB HEMETOLOGY METHOD 08/23/2024 10:45 AM EDT [facility] RDW 15.6(H) 11.0 - 15.0 % LAB HEMETOLOGY METHOD 08/23/2024 10:45 AM EDT [facility] Platelets 243 130 - 400 K/mcL LAB HEMETOLOGY METHOD 08/23/2024 10:45 AM EDT [facility] MPV 9.8 7.0 - 11.0 FL LAB HEMETOLOGY METHOD 08/23/2024 10:45 AM EDT [facility] NRBC 0.0 <1.0 % LAB HEMETOLOGY METHOD 08/23/2024 10:45 AM EDT [facility] NRBC Absolute 0.00 <0.10 K/mcL LAB HEMETOLOGY METHOD 08/23/2024 10:45 AM EDT [facility] Blood Venous blood specimen / Unknown Venipuncture / Unknown 08/23/2024 5:05 AM EDT 08/23/2024 10:01 AM EDT us Priscilla Doan MD LAB BLOOD ORDERABLES Fin al Result [facility] [address] [place] [address], * (ABNORMAL) Basic metabolic panel (08/23/2024 5:05 AM EDT) Only the most recent of4 resultswithin the time period is included. Sodium 133 133 - 145 mmol/L LAB CHEMISTRY METHOD 08/23/2024 11:42 AM EDT [facility] Potassium 5.9(H) 3.5 - 5.5 mmol/L LAB CHEMISTRY METHOD 08/23/2024 11:42 AM [facility] Chloride 99 96 - 110 mmol/L LAB CHEMISTRY METHOD 08/23/2024 11:42 AM [facility] CO2 26 21 - 32 mmol/L LAB CHEMISTRY METHOD 08/23/2024 11:42 AM [facility] Anion Gap 8 3 - 11 LAB CHEMISTRY METHOD 08/23/2024 11:42 AM [facility] Glucose 79 70 - 100 mg/dL LAB CHEMISTRY METHOD 08/23/2024 11:42 AM [facility] BUN 53(H) 5 - 25 mg/dL LAB CHEMISTRY METHOD 08/23/2024 11:42 AM [facility] Creatinine 1.62(H) 0.70 - 1.30 mg/dL LAB CHEMISTRY METHOD 08/23/2024 11:42 AM [facility] eGFR 46(L) >=60 mL/min/1. 73m2 LAB CHEMISTRY METHOD 08/23/2024 11:42 AM [facility] Comment:Calculation based on the??Chronic Kidney Disease Epidemiology Collaboration (CKD-EPI) equation refit??without adjustment for race. BUN/Creatinine Ratio 32.7 LAB CHEMISTRY METHOD 08/23/2024 11:42 AM [facility] Calcium 8.6 8.5 - 10.5 mg/dL LAB CHEMISTRY METHOD 08/23/2024 11:42 AM [facility] Blood Venous blood specimen / Unknown Venipuncture / Unknown 08/23/2024 5:05 AM EDT 08/23/2024 10:01 AM EDT us Priscilla Doan MD LAB BLOOD ORDERABLES Fin al Result [facility] [address] [place] [address], * (ABNORMAL) Comprehensive metabolic panel (08/19/2024 6:54 AM EDT) Only the most recent of13 resultswithin the time period is included. Sodium 132(L) 133 - 145 mmol/L LAB CHEMISTRY METHOD 08/19/2024 11:58 AM [facility] Potassium 5.5 3.5 - 5.5 mmol/L LAB CHEMISTRY METHOD 08/19/2024 11:58 AM [facility] Chloride 99 96 - 110 mmol/L LAB CHEMISTRY METHOD 08/19/2024 11:58 AM [facility] CO2 27 21 - 32 mmol/L LAB CHEMISTRY METHOD 08/19/2024 11:58 AM [facility] Anion Gap 6 3 - 11 LAB CHEMISTRY METHOD 08/19/2024 11:58 AM [facility] Glucose 81 70 - 100 mg/dL LAB CHEMISTRY METHOD 08/19/2024 11:58 AM [facility] BUN 42(H) 5 - 25 mg/dL LAB CHEMISTRY METHOD 08/19/2024 11:58 AM [facility] Creatinine 1.64(H) 0.70 - 1.30 mg/dL LAB CHEMISTRY METHOD 08/19/2024 11:58 AM [facility] eGFR 45(L) >=60 mL/min/1. 73m2 LAB CHEMISTRY METHOD 08/19/2024 11:58 AM [facility] Comment:Calculation based on the??Chronic Kidney Disease Epidemiology Collaboration (CKD-EPI) equation refit??without adjustment for race. BUN/Creatinine Ratio 25.6 LAB CHEMISTRY METHOD 08/19/2024 11:58 AM [facility] Calcium 8.5 8.5 - 10.5 mg/dL LAB CHEMISTRY METHOD 08/19/2024 11:58 AM [facility] AST (SGOT) 23 10 - 42 unit/L LAB CHEMISTRY METHOD 08/19/2024 11:58 AM [facility] ALT (SGPT) 23 10 - 60 unit/L LAB CHEMISTRY METHOD 08/19/2024 11:58 AM EDT [facility] Alkaline Phosphatase 77 42 - 121 unit/L LAB CHEMISTRY METHOD 08/19/2024 11:58 AM EDT [facility] Total Protein 5.4(L) 6.0 - 8.0 g/dL LAB CHEMISTRY METHOD 08/19/2024 11:58 AM EDT [facility] Albumin 1.8(L) 3.2 - 5.0 g/dL LAB CHEMISTRY METHOD 08/19/2024 11:58 AM EDT [facility] Total Bilirubin 0.2 0.0 - 1.4 mg/dL LAB CHEMISTRY METHOD 08/19/2024 11:58 AM EDT [facility] Blood Venous blood specimen / Unknown Venipuncture / Unknown 08/19/2024 6:54 AM EDT 08/19/2024 10:39 AM EDT us Priscilla Doan MD LAB BLOOD ORDERABLES Fin al Result [facility] [address] [place] [address], * (ABNORMAL) Renal function panel (08/18/2024 4:58 AM EDT) Sodium 131(L) 133 - 145 mmol/L LAB CHEMISTRY METHOD 08/18/2024 11:55 AM EDT [facility] Potassium 6.3(HH) 3.5 - 5.5 mmol/L LAB CHEMISTRY METHOD 08/18/2024 11:55 AM EDT [facility] Chloride 97 96 - 110 mmol/L LAB CHEMISTRY METHOD 08/18/2024 11:55 AM EDT [facility] CO2 28 21 - 32 mmol/L LAB CHEMISTRY METHOD 08/18/2024 11:55 AM EDT [facility] Anion Gap 6 3 - 11 LAB CHEMISTRY METHOD 08/18/2024 11:55 AM [facility] Glucose 135(H) 70 - 100 mg/dL LAB CHEMISTRY METHOD 08/18/2024 11:55 AM [facility] BUN 41(H) 5 - 25 mg/dL LAB CHEMISTRY METHOD 08/18/2024 11:55 AM [facility] Creatinine 1.41(H) 0.70 - 1.30 mg/dL LAB CHEMISTRY METHOD 08/18/2024 11:55 AM [facility] eGFR 54(L) >=60 mL/min/1. 73m2 LAB CHEMISTRY METHOD 08/18/2024 11:55 AM [facility] Comment:Calculation based on the??Chronic Kidney Disease Epidemiology Collaboration (CKD-EPI) equation refit??without adjustment for race. BUN/Creatinine Ratio 29.1 LAB CHEMISTRY METHOD 08/18/2024 11:55 AM [facility] Albumin 2.0(L) 3.2 - 5.0 g/dL LAB CHEMISTRY METHOD 08/18/2024 11:55 AM [facility] Calcium 8.6 8.5 - 10.5 mg/dL LAB CHEMISTRY METHOD 08/18/2024 11:55 AM [facility] Phosphorus 3.4 2.5 - 4.5 mg/dL LAB CHEMISTRY METHOD 08/18/2024 11:55 AM [facility] Blood Venous blood specimen / Unknown Venipuncture / Unknown 08/18/2024 4:58 AM EDT 08/18/2024 10:15 AM EDT us Priscilla Doan MD LAB BLOOD ORDERABLES Fin al Result [facility] [address] [place] [address], * Hemoglobin A1c (08/01/2024 9:23 AM EDT) Hemoglobin A1C 5.8 <6.5 % LAB CHEMISTRY METHOD 08/01/2024 1:50 PM EDT [facility] Mean Bld Glu Estim. 120 mg/dL LAB CHEMISTRY METHOD 08/01/2024 1:50 PM EDT [facility] Blood Venous blood specimen / Unknown Venipuncture / Unknown 08/01/2024 9:23 AM EDT 08/01/2024 10:44 AM EDT Priscilla Doan MD LAB BLOOD ORDERABLES Fin al Result Performing Organization Address [facility] Co de Phone Number [facility] [address] [place] [address], [place] [phone] * Ammonia (06/23/2024 7:56 AM EST) Pathologist [facility] Ammonia 18 11 - 35 mcmol/L LAB CHEMISTRY METHOD 06/23/2024 9:33 AM EST [facility] Blood Venous blood specimen / Unknown Venipuncture / Unknown 06/23/2024 7:56 AM EST 06/23/2024 9:05 AM EST Priscilla Doan MD LAB BLOOD ORDERABLES Fin al Result Performing Organization Address City/[facility]/ZIP Co de Phone Number [facility] [address] [place] [address], [place] [phone] from Last 3 Months Insurance MEDICARE MEDICAID - [place] Care Teams Chainstitch Sewing Machine Operator Relationship Specialty Start Date End Date Priscilla Doan MD [address] [address] PCP - General Family Medicine 06/18/24
--- OUTSIDE RECORDS SUMMARY | 2024-09-18 16:02 | XMS_ITS | Encounter Summary ---
Author Organization [facility] Address [address] [place] [address] Care Team Providers Care Spinning Frame Changer Name Role Phone Priscilla Doan MD Primary Care Provider + Encounter Details Date Type Department Care Team (Late st Contact Info) Description 07/14/2024 Lab Requisition [facility] - Main Lab [address] [facility] [place] [address] Priscilla Doan MD [address] [address] Unspecified cirrhosis of liver (CMS/HCC V24, CMS/HCC [...] LAB CHEMISTRY METHOD 07/14/2024 11:41 AM EST [facility] Potassium 5.9(H) 3.5 - 5.5 mmol/L LAB CHEMISTRY METHOD 07/14/2024 11:41 AM EST [facility] Chloride 103 96 - 110 mmol/L LAB CHEMISTRY METHOD 07/14/2024 11:41 AM [facility] CO2 22 21 - 32 mmol/L LAB CHEMISTRY METHOD 07/14/2024 11:41 AM [facility] Anion Gap 8 3 - 11 LAB CHEMISTRY METHOD 07/14/2024 11:41 AM [facility] Glucose 95 70 - 100 mg/dL LAB CHEMISTRY METHOD 07/14/2024 11:41 AM [facility] BUN 45(H) 5 - 25 mg/dL LAB CHEMISTRY METHOD 07/14/2024 11:41 AM [facility] Creatinine 1.63(H) 0.70 - 1.30 mg/dL LAB CHEMISTRY METHOD 07/14/2024 11:41 AM [facility] eGFR 46(L) >=60 mL/min/1. 73m2 LAB CHEMISTRY METHOD 07/14/2024 11:41 AM [facility] Comment:Calculation based on the??Chronic Kidney Disease Epidemiology Collaboration (CKD-EPI) equation refit??without adjustment for race. BUN/Creatinine Ratio 27.6 LAB CHEMISTRY METHOD 07/14/2024 11:41 AM [facility] Calcium 9.2 8.5 - 10.5 mg/dL LAB CHEMISTRY METHOD 07/14/2024 11:41 AM [facility] AST (SGOT) 21 10 - 42 unit/L LAB CHEMISTRY METHOD 07/14/2024 11:41 AM [facility] ALT (SGPT) 18 10 - 60 unit/L LAB CHEMISTRY METHOD 07/14/2024 11:41 AM [facility] Alkaline Phosphatase 70 42 - 121 unit/L LAB CHEMISTRY METHOD 07/14/2024 11:41 AM [facility] Total Protein 6.2 6.0 - 8.0 g/dL LAB CHEMISTRY METHOD 07/14/2024 11:41 AM [facility] Albumin 2.0(L) 3.2 - 5.0 g/dL LAB CHEMISTRY METHOD 07/14/2024 11:41 AM [facility] Total Bilirubin 0.2 0.0 - 1.4 mg/dL LAB CHEMISTRY METHOD 07/14/2024 11:41 AM [facility] Blood Venous blood specimen / Unknown Venipuncture / Unknown 07/14/2024 6:10 AM EST 07/14/2024 10:13 AM EST us Priscilla Doan MD LAB BLOOD ORDERABLES Fin al Result [facility] [address] [place] [address], * (ABNORMAL) Complete blood count (07/14/2024 6:10 AM EST) WBC 6.8 4.8 - 10.8 K/mcL LAB HEMETOLOGY METHOD 07/14/2024 11:13 AM [facility] RBC 3.20(L) 4.50 - 5.50 M/[facility] LAB HEMETOLOGY METHOD 07/14/2024 11:13 AM [facility] Hemoglobin 8.7(L) 13.5 - 17.5 g/dL LAB HEMETOLOGY METHOD 07/14/2024 11:13 AM [facility] Hematocrit 29.3(L) 42.0 - 54.0 % LAB HEMETOLOGY METHOD 07/14/2024 11:13 AM [facility] LAB MCV 91.0 79.0 - 98.0 FL LAB HEMETOLOGY METHOD 07/14/2024 11:13 AM [facility] LAB MCH 27.0 27.0 - 32.0 pcg LAB HEMETOLOGY METHOD 07/14/2024 11:13 AM [facility] LAB MCHC 29.7(L) 32.0 - 37.0 g/dL LAB HEMETOLOGY METHOD 07/14/2024 11:13 AM EST [facility] RDW 16.3(H) 11.0 - 15.0 % LAB HEMETOLOGY METHOD 07/14/2024 11:13 AM [facility] Platelets 197 130 - 400 K/mcL LAB HEMETOLOGY METHOD 07/14/2024 11:13 AM [facility] MPV 10.0 7.0 - 11.0 FL LAB HEMETOLOGY METHOD 07/14/2024 11:13 AM EST [facility] NRBC 0.0 <1.0 % LAB HEMETOLOGY METHOD 07/14/2024 11:13 AM [facility] NRBC Absolute 0.00 <0.10 K/mcL LAB HEMETOLOGY METHOD 07/14/2024 11:13 AM [facility] LAB Blood Venous blood specimen / Unknown Venipuncture / Unknown 07/14/2024 6:10 AM EST 07/14/2024 10:13 AM EST us Priscilla Doan MD LAB BLOOD ORDERABLES Fin al Result [facility] [address] [place] [address], documented in this encounter Visit Diagnoses Diagnosis Unspecified cirrhosis of liver (CMS/HCC V24, CMS/HCC V28) documented in this encounter Care Teams Spinning Frame Changer Relationship Specialty Start Date End Date Priscilla Doan MD [address] [place] [phone] PCP - General Family Medicine 06/18/24 documented as of this encounter
--- OUTSIDE RECORDS SUMMARY | 2024-09-18 16:02 | XMS_ITS | Encounter Summary ---
Author Organization [facility] Address [address] [place] [address] Care Team Providers Care Director [employer] Name Role Phone Priscilla Doan MD Primary Care Provider + Encounter Details Date Type Department Care Team (Late st Contact Info) Description 07/15/2024 Lab Requisition [facility] - Main Lab 299 [facility] [place] [address] Priscilla Doan MD [address] [address] Unspecified viral hepatitis C 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 [...] coma documented in this encounter Care Teams Director [employer] Relationship Specialty Start Date End Date Priscilla Doan MD [address] [place] [phone] PCP - General Family Medicine 06/18/24 documented as of this encounter
--- OUTSIDE RECORDS SUMMARY | 2024-09-18 16:02 | XMS_ITS | Encounter Summary ---
[facility] Address [address] [place] [address] Care Team Providers Care Garment Sewer Hand Name Role Phone Elder, Priscilla Childs MD Primary Care Provider + Encounter Details Date Type Department Care Team (Late st Contact Info) Description 07/15/2024 Lab Requisition [facility] Lab 299 [facility] [employer] [place] [address] Noman Pastrana MD [address] [place] [address] [place] [id number] Retention of urine, unspecified Social History Tobacco [...] LAB CHEMISTRY METHOD 07/15/2024 12:30 PM EST [facility] Potassium 6.4(HH) 3.5 - 5.5 mmol/L LAB CHEMISTRY METHOD 07/15/2024 12:30 PM EST [facility] Chloride 106 96 - 110 mmol/L LAB CHEMISTRY METHOD 07/15/2024 12:30 PM EST [facility] CO2 21 21 - 32 mmol/L LAB CHEMISTRY METHOD 07/15/2024 12:30 PM [facility] Anion Gap 8 3 - 11 LAB CHEMISTRY METHOD 07/15/2024 12:30 PM [facility] Glucose 88 70 - 100 mg/dL LAB CHEMISTRY METHOD 07/15/2024 12:30 PM [facility] BUN 44(H) 5 - 25 mg/dL LAB CHEMISTRY METHOD 07/15/2024 12:30 PM [facility] Creatinine 1.58(H) 0.70 - 1.30 mg/dL LAB CHEMISTRY METHOD 07/15/2024 12:30 PM [facility] eGFR 47(L) >=60 mL/min/1. 73m2 LAB CHEMISTRY METHOD 07/15/2024 12:30 PM [facility] Comment:Calculation based on the??Chronic Kidney Disease Epidemiology Collaboration (CKD-EPI) equation refit??without adjustment for race. BUN/Creatinine Ratio 27.8 LAB CHEMISTRY METHOD 07/15/2024 12:30 PM [facility] Calcium 9.2 8.5 - 10.5 mg/dL LAB CHEMISTRY METHOD 07/15/2024 12:30 PM [facility] Blood Venous blood specimen / Unknown Venipuncture / Unknown 07/15/2024 5:33 AM EST 07/15/2024 10:49 AM EST us Noman Pastrana MD LAB BLOOD ORDERABLES Final Resu lt [facility] [address] [place] [address], documented in this encounter Visit Diagnoses Diagnosis Retention of urine, unspecified documented in this encounter Care Teams Garment Sewer Hand Relationship Specialty Start Date End Date Priscilla Doan MD [address] [address] PCP - General Family Medicine 06/18/24 documented as of this encounter
--- OUTSIDE RECORDS SUMMARY | 2024-09-18 16:02 | XMS_ITS | Encounter Summary ---
Author Organization [facility] Address [address] [place] [address] Care Team Providers Care Home Theater Experience Expert Name Role Phone Priscilla Doan MD Primary Care Provider + Encounter Details Date Type Department Care Team (Late st Contact Info) Description 07/09/2024 Lab Requisition [facility] - Main Lab 299 [facility] [place] [address] Priscilla Doan MD [address] [address] Unspecified viral hepatitis C 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 [...] LAB CHEMISTRY METHOD 07/11/2024 10:57 AM EST [facility] Potassium 5.8(H) 3.5 - 5.5 mmol/L LAB CHEMISTRY METHOD 07/11/2024 10:57 AM EST [facility] Chloride 108 96 - 110 mmol/L LAB CHEMISTRY METHOD 07/11/2024 10:57 AM [facility] CO2 20(L) 21 - 32 mmol/L LAB CHEMISTRY METHOD 07/11/2024 10:57 AM [facility] Anion Gap 10 3 - 11 LAB CHEMISTRY METHOD 07/11/2024 10:57 AM [facility] Glucose 90 70 - 100 mg/dL LAB CHEMISTRY METHOD 07/11/2024 10:57 AM [facility] BUN 37(H) 5 - 25 mg/dL LAB CHEMISTRY METHOD 07/11/2024 10:57 AM [facility] Creatinine 1.51(H) 0.70 - 1.30 mg/dL LAB CHEMISTRY METHOD 07/11/2024 10:57 AM [facility] eGFR 50(L) >=60 mL/min/1. 73m2 LAB CHEMISTRY METHOD 07/11/2024 10:57 AM [facility] Comment:Calculation based on the??Chronic Kidney Disease Epidemiology Collaboration (CKD-EPI) equation refit??without adjustment for race. BUN/Creatinine Ratio 24.5 LAB CHEMISTRY METHOD 07/11/2024 10:57 AM [facility] Calcium 9.0 8.5 - 10.5 mg/dL LAB CHEMISTRY METHOD 07/11/2024 10:57 AM [facility] AST (SGOT) 19 10 - 42 unit/L LAB CHEMISTRY METHOD 07/11/2024 10:57 AM [facility] ALT (SGPT) 15 10 - 60 unit/L LAB CHEMISTRY METHOD 07/11/2024 10:57 AM [facility] Alkaline Phosphatase 62 42 - 121 unit/L LAB CHEMISTRY METHOD 07/11/2024 10:57 AM [facility] Total Protein 5.9(L) 6.0 - 8.0 g/dL LAB CHEMISTRY METHOD 07/11/2024 10:57 AM [facility] Albumin 1.9(L) 3.2 - 5.0 g/dL LAB CHEMISTRY METHOD 07/11/2024 10:57 AM EST [facility] Total Bilirubin 0.2 0.0 - 1.4 mg/dL LAB CHEMISTRY METHOD 07/11/2024 10:57 AM [facility] Blood Venous blood specimen / Unknown Venipuncture / Unknown 07/11/2024 8:26 AM EST 07/11/2024 10:09 AM EST us Priscilla Doan MD LAB BLOOD ORDERABLES Fin al Result [facility] [address] [place] [address], * (ABNORMAL) Complete blood count (07/11/2024 8:26 AM EST) WBC 5.7 4.8 - 10.8 K/mcL LAB HEMETOLOGY METHOD 07/11/2024 10:40 AM [facility] RBC 3.10(L) 4.50 - 5.50 M/mcL LAB HEMETOLOGY METHOD 07/11/2024 10:40 AM [facility] Hemoglobin 8.4(L) 13.5 - 17.5 g/dL LAB HEMETOLOGY METHOD 07/11/2024 10:40 AM [facility] Hematocrit 27.9(L) 42.0 - 54.0 % LAB HEMETOLOGY METHOD 07/11/2024 10:40 AM [facility] MCV 89.7 79.0 - 98.0 FL LAB HEMETOLOGY METHOD 07/11/2024 10:40 AM [facility] MCH 27.0 27.0 - 32.0 pcg LAB HEMETOLOGY METHOD 07/11/2024 10:40 AM [facility] MCHC 30.1(L) 32.0 - 37.0 g/dL LAB HEMETOLOGY METHOD 07/11/2024 10:40 AM EST [facility] RDW 16.3(H) 11.0 - 15.0 % LAB HEMETOLOGY METHOD 07/11/2024 10:40 AM EST [facility] Platelets 159 130 - 400 K/mcL LAB HEMETOLOGY METHOD 07/11/2024 10:40 AM EST [facility] MPV 9.7 7.0 - 11.0 FL LAB HEMETOLOGY METHOD 07/11/2024 10:40 AM EST [facility] NRBC 0.0 <1.0 % LAB HEMETOLOGY METHOD 07/11/2024 10:40 AM EST [facility] NRBC Absolute 0.00 <0.10 K/mcL LAB HEMETOLOGY METHOD 07/11/2024 10:40 AM [facility] Blood Venous blood specimen / Unknown Venipuncture / Unknown 07/11/2024 8:26 AM EST 07/11/2024 10:09 AM EST us Priscilla Doan MD LAB BLOOD ORDERABLES Fin al Result [facility] [address] [place] [address], documented in this encounter Visit Diagnoses Diagnosis Unspecified viral hepatitis C 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 documented in this encounter Care Teams Home Theater Experience Expert Relationship Specialty Start Date End Date Priscilla Doan MD [address] [place] [phone] PCP - General Family Medicine 06/18/24 documented as of this encounter
--- OUTSIDE RECORDS SUMMARY | 2024-09-18 16:02 | XMS_ITS | Encounter Summary ---
Author Organization [facility] Address [address] [place] [address] Care Team Providers Care Shagger Name Role Phone Priscilla Doan MD Primary Care Provider + Encounter Details Date Type Department Care Team (Late st Contact Info) Description 07/30/2024 Lab Requisition [facility] - Main Lab 299 [facility] [place] [address] Priscilla Doan MD [address] [phone] Essential (primary) hypertension; Type 2 diabetes mellitus [...] % LAB CHEMISTRY METHOD 08/01/2024 1:50 PM [facility] Mean Bld Glu Estim. 120 mg/dL LAB CHEMISTRY METHOD 08/01/2024 1:50 PM [facility] Blood Venous blood specimen / Unknown Venipuncture / Unknown 08/01/2024 9:23 AM EDT 08/01/2024 10:44 AM EDT us Priscilla Doan MD LAB BLOOD ORDERABLES Fin al Result [facility] [address] [place] [address], * (ABNORMAL) Comprehensive metabolic panel (08/01/2024 9:23 AM EDT) Sodium 136 133 - 145 mmol/L LAB CHEMISTRY METHOD 08/01/2024 12:17 PM [facility] Potassium 5.7(H) 3.5 - 5.5 mmol/L LAB CHEMISTRY METHOD 08/01/2024 12:17 PM [facility] Chloride 103 96 - 110 mmol/L LAB CHEMISTRY METHOD 08/01/2024 12:17 PM [facility] CO2 23 21 - 32 mmol/L LAB CHEMISTRY METHOD 08/01/2024 12:17 PM [facility] Anion Gap 10 3 - 11 LAB CHEMISTRY METHOD 08/01/2024 12:17 PM [facility] Glucose 109(H) 70 - 100 mg/dL LAB CHEMISTRY METHOD 08/01/2024 12:17 PM [facility] BUN 35(H) 5 - 25 mg/dL LAB CHEMISTRY METHOD 08/01/2024 12:17 PM [facility] Creatinine 1.30 0.70 - 1.30 mg/dL LAB CHEMISTRY METHOD 08/01/2024 12:17 PM EDT [facility] eGFR 59(L) >=60 mL/min/1. 73m2 LAB CHEMISTRY METHOD 08/01/2024 12:17 PM [facility] Comment:Calculation based on the??Chronic Kidney Disease Epidemiology Collaboration (CKD-EPI) equation refit??without adjustment for race. BUN/Creatinine Ratio 26.9 LAB CHEMISTRY METHOD 08/01/2024 12:17 PM [facility] Calcium 8.6 8.5 - 10.5 mg/dL LAB CHEMISTRY METHOD 08/01/2024 12:17 PM [facility] AST (SGOT) 19 10 - 42 unit/L LAB CHEMISTRY METHOD 08/01/2024 12:17 PM [facility] ALT (SGPT) 16 10 - 60 unit/L LAB CHEMISTRY METHOD 08/01/2024 12:17 PM [facility] Alkaline Phosphatase 62 42 - 121 unit/L LAB CHEMISTRY METHOD 08/01/2024 12:17 PM [facility] Total Protein 6.1 6.0 - 8.0 g/dL LAB CHEMISTRY METHOD 08/01/2024 12:17 PM [facility] Albumin 2.1(L) 3.2 - 5.0 g/dL LAB CHEMISTRY METHOD 08/01/2024 12:17 PM [facility] Total Bilirubin 0.2 0.0 - 1.4 mg/dL LAB CHEMISTRY METHOD 08/01/2024 12:17 PM [facility] Blood Venous blood specimen / Unknown Venipuncture / Unknown 08/01/2024 9:23 AM EDT 08/01/2024 10:44 AM EDT us Priscilla Doan MD LAB BLOOD ORDERABLES Fin al Result [facility] [address] [place] [address], * (ABNORMAL) Complete blood count (08/01/2024 9:23 AM EDT) [facility] WBC 7.2 4.8 - 10.8 K/mcL LAB HEMETOLOGY METHOD 08/01/2024 11:39 AM [facility] RBC 3.20(L) 4.50 - 5.50 M/mcL LAB HEMETOLOGY METHOD 08/01/2024 11:39 AM [facility] Hemoglobin 8.8(L) 13.5 - 17.5 g/dL LAB HEMETOLOGY METHOD 08/01/2024 11:39 AM [facility] Hematocrit 29.0(L) 42.0 - 54.0 % LAB HEMETOLOGY METHOD 08/01/2024 11:39 AM [facility] MCV 90.6 79.0 - 98.0 FL LAB HEMETOLOGY METHOD 08/01/2024 11:39 AM [facility] MCH 27.5 27.0 - 32.0 pcg LAB HEMETOLOGY METHOD 08/01/2024 11:39 AM [facility] MCHC 30.3(L) 32.0 - 37.0 g/dL LAB HEMETOLOGY METHOD 08/01/2024 11:39 AM [facility] RDW 15.4(H) 11.0 - 15.0 % LAB HEMETOLOGY METHOD 08/01/2024 11:39 AM [facility] Platelets 263 130 - 400 K/mcL LAB HEMETOLOGY METHOD 08/01/2024 11:39 AM [facility] MPV 10.0 7.0 - 11.0 FL LAB HEMETOLOGY METHOD 08/01/2024 11:39 AM [facility] NRBC 0.0 <1.0 % LAB HEMETOLOGY METHOD 08/01/2024 11:39 AM EDT [facility] NRBC Absolute 0.00 <0.10 K/mcL LAB HEMETOLOGY METHOD 08/01/2024 11:[address] [facility] Blood Venous blood specimen / Unknown Venipuncture / Unknown 08/01/2024 9:23 AM EDT 08/01/2024 10:44 AM EDT us Priscilla Doan MD LAB BLOOD ORDERABLES Fin al Result [facility]) [facility] [address] [place] [address], documented in this encounter Visit Diagnoses Diagnosis Essential (primary) hypertension Unspecified essential hypertension Type 2 diabetes mellitus without complications (CMS/HCC V24, CMS/HCC V28) documented in this encounter Care Teams Shagger Relationship Specialty Start Date End Date Priscilla Doan MD [address] [place] [phone] PCP - General Family Medicine 06/18/24 documented as of this encounter
--- OUTSIDE RECORDS SUMMARY | 2024-09-18 16:02 | XMS_ITS | Encounter Summary ---
Author Organization [facility] Address [address] [place] [address] Care Team Providers Care Rotary Engraver Name Role Phone Priscilla Doan MD Primary Care Provider + Encounter Details Date Type Department Care Team (Late st Contact Info) Description 08/18/2024 Lab Requisition [facility] - Main Lab 299 [facility] [place] [address] Priscilla Doan MD [address] [address] Unspecified cirrhosis of liver (CMS/HCC V24, CMS/HCC [...] 11 LAB CHEMISTRY METHOD 08/18/2024 11:55 AM [facility] Glucose 135(H) 70 - [...] LAB CHEMISTRY METHOD 08/18/2024 11:55 AM EDT [facility] Calcium 8.6 8.5 [...] al Result [facility] [address] [place] [address], * (ABNORMAL) Comprehensive metabolic panel (08/18/2024 4:58 AM EDT) Sodium 131(L) 133 - 145 mmol/L LAB CHEMISTRY METHOD 08/18/2024 11:56 AM [facility] Potassium 6.3(HH) 3.5 - 5.5 mmol/L LAB CHEMISTRY METHOD 08/18/2024 11:56 AM [facility] Chloride 97 96 - 110 mmol/L LAB CHEMISTRY METHOD 08/18/2024 11:56 AM [facility] CO2 28 21 - 32 mmol/L LAB CHEMISTRY METHOD 08/18/2024 11:56 AM [facility] Anion Gap 6 3 - 11 LAB CHEMISTRY METHOD 08/18/2024 11:56 AM [facility] Glucose 135(H) 70 - 100 mg/dL LAB CHEMISTRY METHOD 08/18/2024 11:56 AM [facility] BUN 41(H) 5 - 25 mg/dL LAB CHEMISTRY METHOD 08/18/2024 11:56 AM [facility] Creatinine 1.41(H) 0.70 - 1.30 mg/dL LAB CHEMISTRY METHOD 08/18/2024 11:56 AM [facility] eGFR 54(L) >=60 mL/min/1. 73m2 LAB CHEMISTRY METHOD 08/18/2024 11:56 AM [facility] Comment: Calculation based on the??Chronic Kidney Disease Epidemiology Collaboration (CKD-EPI) equation refit??without adjustment for race. Calculation based on the??Chronic Kidney Disease Epidemiology Collaboration (CKD-EPI) equation refit??without adjustment for race. BUN/Creatinine Ratio 29.1 LAB CHEMISTRY METHOD 08/18/2024 11:56 AM [facility] Calcium 8.6 8.5 - 10.5 mg/dL LAB CHEMISTRY METHOD 08/18/2024 11:56 AM [facility] AST (SGOT) 20 10 - 42 unit/L LAB CHEMISTRY METHOD 08/18/2024 11:56 AM [facility] ALT (SGPT) 21 10 - 60 unit/L LAB CHEMISTRY METHOD 08/18/2024 11:56 AM [facility] Alkaline Phosphatase 80 42 - 121 unit/L LAB CHEMISTRY METHOD 08/18/2024 11:56 AM [facility] Total Protein 5.8(L) 6.0 - 8.0 g/dL LAB CHEMISTRY METHOD 08/18/2024 11:56 AM [facility] Albumin 2.0(L) 3.2 - 5.0 g/dL LAB CHEMISTRY METHOD 08/18/2024 11:56 AM [facility] Total Bilirubin 0.2 0.0 - 1.4 mg/dL LAB CHEMISTRY METHOD 08/18/2024 11:56 AM [facility] Blood Venous blood specimen / Unknown Venipuncture / Unknown 08/18/2024 4:58 AM EDT 08/18/2024 10:15 AM EDT us Priscilla Doan MD LAB BLOOD ORDERABLES Fin al Result [facility] [address] [place] [address], * (ABNORMAL) Complete blood count (08/18/2024 4:58 AM EDT) WBC 6.9 4.8 - 10.8 K/mcL LAB HEMETOLOGY METHOD 08/18/2024 10:26 AM EDT [facility] RBC 2.80(L) 4.50 - 5.50 M/mcL LAB HEMETOLOGY METHOD 08/18/2024 10:26 AM EDT [facility] Hemoglobin 7.6(L) 13.5 - 17.5 g/dL LAB HEMETOLOGY METHOD 08/18/2024 10:26 AM EDT [facility] Hematocrit 25.1(L) 42.0 - 54.0 % LAB HEMETOLOGY METHOD 08/18/2024 10:26 AM EDT [facility] MCV 89.6 79.0 - 98.0 FL LAB HEMETOLOGY METHOD 08/18/2024 10:26 AM EDT [facility] MCH 27.1 27.0 - 32.0 pcg LAB HEMETOLOGY METHOD 08/18/2024 10:26 AM EDT [facility] MCHC 30.3(L) 32.0 - 37.0 g/dL LAB HEMETOLOGY METHOD 08/18/2024 10:26 AM EDT [facility] RDW 15.3(H) 11.0 - 15.0 % [facility] Platelets 242 130 - 400 K/mcL LAB HEMETOLOGY METHOD 08/18/2024 10:26 AM EDT [facility] MPV 10.3 7.0 - 11.0 FL LAB HEMETOLOGY METHOD 08/18/2024 10:26 AM EDT [facility] NRBC 0.0 <1.0 % LAB HEMETOLOGY METHOD 08/18/2024 10:26 AM EDT [facility] NRBC Absolute 0.00 <0.10 K/mcL LAB HEMETOLOGY METHOD 08/18/2024 10:26 AM EDT [facility] Blood Venous blood specimen / Unknown Venipuncture / Unknown 08/18/2024 4:58 AM EDT 08/18/2024 10:15 AM EDT us Priscilla Doan MD LAB BLOOD ORDERABLES Fin al Result [facility] [address] [place] [address], documented in this encounter Visit Diagnoses Diagnosis Unspecified cirrhosis of liver (CMS/HCC V24, CMS/HCC V28) Type 2 diabetes mellitus without complications (CMS/HCC V24, CMS/HCC V28) Hypertensive chronic kidney disease with stage 1 through stage 4 chronic kidney disease, or unspecified chronic kidney disease documented in this encounter Care Teams Rotary Engraver Relationship Specialty Start Date End Date Priscilla Doan MD [address] [place] [phone] PCP - General Family Medicine 06/18/24 documented as of this encounter
--- OUTSIDE RECORDS SUMMARY | 2024-09-18 16:02 | XMS_ITS | Encounter Summary ---
Author Organization [facility] Address [address] [place] [address] Care Team Providers Care Offset Plate Preparation Supervisor Name Role Phone Priscilla Doan MD Primary Care Provider + Encounter Details Date Type Department Care Team (Late st Contact Info) Description 07/26/2024 Lab Requisition [facility] - Main Lab 299 [facility] [place] [address] Priscilla Doan MD [address] [phone] Type 2 diabetes mellitus without complications (CMS/HCC [...] LAB CHEMISTRY METHOD 07/26/2024 10:[address] [facility] Potassium 5.3 3.5 - 5.5 mmol/L LAB CHEMISTRY METHOD 07/26/2024 10:[address] [facility] Chloride 105 96 - 110 mmol/L LAB CHEMISTRY METHOD 07/26/2024 10:[address] [facility] CO2 23 21 - 32 mmol/L LAB CHEMISTRY METHOD 07/26/2024 10:[address] [facility] Anion Gap 11 3 - 11 LAB CHEMISTRY METHOD 07/26/2024 10:[address] [facility] Glucose 81 70 - 100 mg/dL LAB CHEMISTRY METHOD 07/26/2024 10:[address] [facility] BUN 33(H) 5 - 25 mg/dL LAB CHEMISTRY METHOD 07/26/2024 10:[address] [facility] Creatinine 1.01 0.70 - 1.30 mg/dL LAB CHEMISTRY METHOD 07/26/2024 10:[address] [facility] eGFR 81 >=60 mL/min/1. 73m2 LAB CHEMISTRY METHOD 07/26/2024 10:[address] [facility] Comment:Calculation based on the??Chronic Kidney Disease Epidemiology Collaboration (CKD-EPI) equation refit??without adjustment for race. BUN/Creatinine Ratio 32.7 LAB CHEMISTRY METHOD 07/26/2024 10:[address] [facility] Calcium 8.7 8.5 - 10.5 mg/dL LAB CHEMISTRY METHOD 07/26/2024 10:[address] [facility] Blood Venous blood specimen / Unknown Venipuncture / Unknown 07/26/2024 5:29 AM EST 07/26/2024 9:06 AM EST us Priscilla Doan MD LAB BLOOD ORDERABLES Fin al Result [facility] [address] [place] [address], documented in this encounter Visit Diagnoses Diagnosis Type 2 diabetes mellitus without complications (CMS/HCC V24, CMS/HCC V28) Chronic viral hepatitis C (CMS/HCC V24, CMS/HCC V28) Chronic hepatitis C without mention of hepatic coma Chronic kidney disease, stage 3 unspecified (CMS/HCC V24, CMS/HCC V28) documented in this encounter Care Teams Offset Plate Preparation Supervisor Relationship Specialty Start Date End Date Priscilla Doan MD [address] [place] [address] PCP - General Family Medicine 06/18/24 documented as of this encounter
--- OUTSIDE RECORDS SUMMARY | 2024-09-18 16:02 | XMS_ITS | Encounter Summary ---
Author Organization [facility] Address [address] [place] [address] Care Team Providers Care Roads Superintendent Name Role Phone Priscilla Doan MD Primary Care Provider + Encounter Details Date Type Department Care Team (Late st Contact Info) Description 08/04/2024 Lab Requisition [facility] - Main Lab 299 [facility] [place] [address] Priscilla Doan MD [address] [address] Unspecified viral hepatitis C 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; [...] LAB CHEMISTRY METHOD 08/05/2024 10:28 AM EDT [facility] Potassium 5.8(H) 3.5 - 5.5 mmol/L LAB CHEMISTRY METHOD 08/05/2024 10:28 AM [facility] Chloride 101 96 - 110 mmol/L LAB CHEMISTRY METHOD 08/05/2024 10:28 AM [facility] CO2 27 21 - 32 mmol/L LAB CHEMISTRY METHOD 08/05/2024 10:28 AM [facility] Anion Gap 5 3 - 11 LAB CHEMISTRY METHOD 08/05/2024 10:28 AM [facility] Glucose 82 70 - 100 mg/dL LAB CHEMISTRY METHOD 08/05/2024 10:28 AM [facility] BUN 41(H) 5 - 25 mg/dL LAB CHEMISTRY METHOD 08/05/2024 10:28 AM [facility] Creatinine 1.53(H) 0.70 - 1.30 mg/dL LAB CHEMISTRY METHOD 08/05/2024 10:28 AM [facility] eGFR 49(L) >=60 mL/min/1. 73m2 LAB CHEMISTRY METHOD 08/05/2024 10:28 AM [facility] Comment:Calculation based on the??Chronic Kidney Disease Epidemiology Collaboration (CKD-EPI) equation refit??without adjustment for race. BUN/Creatinine Ratio 26.8 LAB CHEMISTRY METHOD 08/05/2024 10:28 AM [facility] Calcium 8.5 8.5 - 10.5 mg/dL LAB CHEMISTRY METHOD 08/05/2024 10:28 AM [facility] AST (SGOT) 23 10 - 42 unit/L LAB CHEMISTRY METHOD 08/05/2024 10:28 AM [facility] ALT (SGPT) 19 10 - 60 unit/L LAB CHEMISTRY METHOD 08/05/2024 10:28 AM [facility] Alkaline Phosphatase 68 42 - 121 unit/L LAB CHEMISTRY METHOD 08/05/2024 10:28 AM [facility] Total Protein 5.5(L) 6.0 - 8.0 g/dL LAB CHEMISTRY METHOD 08/05/2024 10:28 AM EDT [facility] Albumin 1.8(L) 3.2 - 5.0 g/dL LAB CHEMISTRY METHOD 08/05/2024 10:28 AM EDT [facility] Total Bilirubin 0.3 0.0 - 1.4 mg/dL LAB CHEMISTRY METHOD 08/05/2024 10:28 AM EDT [facility] Blood Venous blood specimen / Unknown Venipuncture / Unknown 08/05/2024 7:23 AM EDT 08/05/2024 9:29 AM EDT us Priscilla Doan MD LAB BLOOD ORDERABLES Fin al Result [facility] [address] [place] [address], * (ABNORMAL) Complete blood count (08/05/2024 7:23 AM EDT) WBC 5.7 4.8 - 10.8 K/mcL LAB HEMETOLOGY METHOD 08/05/2024 9:53 AM EDT [facility] RBC 3.00(L) 4.50 - 5.50 M/mcL LAB HEMETOLOGY METHOD 08/05/2024 9:53 AM EDT [facility] Hemoglobin 8.2(L) 13.5 - 17.5 g/dL LAB HEMETOLOGY METHOD 08/05/2024 9:53 AM T [facility] Hematocrit 26.4(L) 42.0 - 54.0 % LAB HEMETOLOGY METHOD 08/05/2024 9:53 AM EDT [facility] MCV 88.0 79.0 - 98.0 FL LAB HEMETOLOGY METHOD 08/05/2024 9:53 AM EDT [facility] MCH 27.3 27.0 - 32.0 [...] EDT [facility] NRBC 0.0 <1.0 [...] Result [facility] [address] [place] [address], documented in this encounter Visit Diagnoses Diagnosis Unspecified viral hepatitis C 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 Type 2 diabetes mellitus without complications (CMS/HCC V24, CMS/HCC V28) documented in this encounter Care Teams Roads Superintendent Relationship Specialty Start Date End Date Priscilla Doan MD [address] [place] [phone] PCP - General Family Medicine 06/18/24 documented as of this encounter
--- OUTSIDE RECORDS SUMMARY | 2024-09-18 16:02 | XMS_ITS | Encounter Summary ---
Author Organization [employer] Address [address] [place] [address] Care Team Providers Care Tax Manager Name Role Phone Elder, Priscilla Childs MD Primary Care Provider + Encounter Details Date Type Department Care Team (Late st Contact Info) Description 06/30/2024 Lab Requisition [facility] - Main Lab 299 [facility] [place] [address] Noman Pastrana PA [address] [place] [phone] Unspecified viral hepatitis C 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; [...] mmol/L LAB CHEMISTRY METHOD 06/30/2024 9:32 AM [facility] Potassium 3.9 3.5 - 5.5 mmol/L LAB CHEMISTRY METHOD 06/30/2024 9:32 AM [facility] Chloride 109 96 - 110 mmol/L LAB CHEMISTRY METHOD 06/30/2024 9:32 AM [facility] CO2 24 21 - 32 mmol/L LAB CHEMISTRY METHOD 06/30/2024 9:32 AM [facility] Anion Gap 7 3 - 11 LAB CHEMISTRY METHOD 06/30/2024 9:32 AM [facility] Glucose 144(H) 70 - 100 mg/dL LAB CHEMISTRY METHOD 06/30/2024 9:32 AM [facility] BUN 39(H) 5 - 25 mg/dL LAB CHEMISTRY METHOD 06/30/2024 9:32 AM [facility] Creatinine 1.37(H) 0.70 - 1.30 mg/dL LAB CHEMISTRY METHOD 06/30/2024 9:32 AM [facility] eGFR 56(L) >=60 mL/min/1. 73m2 LAB CHEMISTRY METHOD 06/30/2024 9:32 AM [facility] Comment:Calculation based on the??Chronic Kidney Disease Epidemiology Collaboration (CKD-EPI) equation refit??without adjustment for race. BUN/Creatinine Ratio 28.5 LAB CHEMISTRY METHOD 06/30/2024 9:32 AM [facility] Calcium 8.1(L) 8.5 - 10.5 mg/dL LAB CHEMISTRY METHOD 06/30/2024 9:32 AM [facility] AST (SGOT) 53(H) 10 - 42 unit/L LAB CHEMISTRY METHOD 06/30/2024 9:32 AM [facility] Comment:Results verified by repeat testing ALT (SGPT) 53 10 - 60 unit/L LAB CHEMISTRY METHOD 06/30/2024 9:32 AM [facility] Comment:Results verified by repeat testing Alkaline Phosphatase 95 42 - 121 unit/L LAB CHEMISTRY METHOD 06/30/2024 9:32 AM [facility] Total Protein 5.2(L) 6.0 - 8.0 g/dL LAB CHEMISTRY METHOD 06/30/2024 9:32 AM [facility] Albumin 1.8(L) 3.2 - 5.0 g/dL LAB CHEMISTRY METHOD 06/30/2024 9:32 AM [facility] Total Bilirubin 0.2 0.0 - 1.4 mg/dL LAB CHEMISTRY METHOD 06/30/2024 9:32 AM [facility] Blood Venous blood specimen / Unknown Venipuncture / Unknown 06/30/2024 6:59 AM EST 06/30/2024 8:23 AM EST us Noman CALDERON LAB BLOOD ORDERABLES Final Re sult [facility] [address] [place] [address], * (ABNORMAL) Complete blood count (06/30/2024 6:59 AM EST) WBC 5.4 4.8 - 10.8 K/mcL LAB HEMETOLOGY METHOD 06/30/2024 8:54 AM [facility] RBC 3.20(L) 4.50 - 5.50 M/mcL LAB HEMETOLOGY METHOD 06/30/2024 8:54 AM [facility] Hemoglobin 8.3(L) 13.5 - 17.5 g/dL LAB HEMETOLOGY METHOD 06/30/2024 8:54 AM [facility] Hematocrit 27.6(L) 42.0 - 54.0 % LAB HEMETOLOGY METHOD 06/30/2024 8:54 AM [facility] MCV 87.3 79.0 - 98.0 FL LAB HEMETOLOGY METHOD 06/30/2024 8:54 AM EST [facility] MCH 26.3(L) 27.0 - 32.0 pcg LAB HEMETOLOGY METHOD 06/30/2024 8:54 AM [facility] MCHC 30.1(L) 32.0 - 37.0 g/dL LAB HEMETOLOGY METHOD 06/30/2024 8:54 AM [facility] RDW 16.0(H) 11.0 - 15.0 % LAB HEMETOLOGY METHOD 06/30/2024 8:54 AM [facility] Platelets 125(L) 130 - 400 K/mcL LAB HEMETOLOGY METHOD 06/30/2024 8:54 AM [facility] MPV 11.6(H) 7.0 - 11.0 FL LAB HEMETOLOGY METHOD 06/30/2024 8:54 AM [facility] NRBC 0.0 <1.0 % LAB HEMETOLOGY METHOD 06/30/2024 8:54 AM [facility] NRBC Absolute 0.00 <0.10 K/mcL LAB HEMETOLOGY METHOD 06/30/2024 8:54 AM [facility] Blood Venous blood specimen / Unknown Venipuncture / Unknown 06/30/2024 6:59 AM EST 06/30/2024 8:23 AM EST us Noman CALDERON LAB BLOOD ORDERABLES Final Re sult [facility] [address] [place] [address], documented in this encounter Visit Diagnoses Diagnosis Unspecified viral hepatitis C 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 Acute embolism and thrombosis of unspecified deep veins of right lower extremity (CMS/HCC V24, CMS/HCC V28) Unspecified cirrhosis of liver (CMS/HCC V24, CMS/HCC V28) documented in this encounter Care Teams Tax Manager Relationship Specialty Start Date End Date Priscilla Doan MD [address] [place] [address] PCP - General Family Medicine 06/18/24 documented as of this encounter
--- OUTSIDE RECORDS SUMMARY | 2024-09-18 16:02 | XMS_ITS | Encounter Summary ---
Author Organization [facility] Address [address] [place] [address] Care Team Providers Care Manager Recruiting Name Role Phone Priscilla Doan MD Primary Care Provider + Encounter Details Date Type Department Care Team (Late st Contact Info) Description 08/23/2024 Lab Requisition [facility] - Main Lab 299 [facility] [place] [address] Priscilla Dona MD [address] [address] Essential (primary) hypertension Social History Tobacco Use [...] LAB CHEMISTRY METHOD 08/23/2024 11:42 AM EDT [facility] Potassium 5.9(H) 3.5 - 5.5 mmol/L LAB CHEMISTRY METHOD 08/23/2024 11:42 AM T [facility] Chloride 99 96 - 110 mmol/L LAB CHEMISTRY METHOD 08/23/2024 11:42 AM [facility] CO2 26 21 - 32 mmol/L LAB CHEMISTRY METHOD 08/23/2024 11:42 AM [facility] Anion Gap 8 3 - 11 LAB CHEMISTRY METHOD 08/23/2024 11:42 AM [facility] Glucose 79 70 - 100 mg/dL LAB CHEMISTRY METHOD 08/23/2024 11:42 AM [facility] BUN 53(H) 5 - 25 mg/dL LAB CHEMISTRY METHOD 08/23/2024 11:42 AM [facility] Creatinine 1.62(H) 0.70 - 1.30 mg/dL LAB CHEMISTRY METHOD 08/23/2024 11:42 AM [facility] eGFR 46(L) >=60 mL/min/1. 73m2 LAB CHEMISTRY METHOD 08/23/2024 11:42 AM [facility] Comment:Calculation based on the??Chronic Kidney Disease Epidemiology Collaboration (CKD-EPI) equation refit??without adjustment for race. BUN/Creatinine Ratio 32.7 LAB CHEMISTRY METHOD 08/23/2024 11:42 AM [facility] Calcium 8.6 8.5 - 10.5 mg/dL LAB CHEMISTRY METHOD 08/23/2024 11:42 AM [facility] Blood Venous blood specimen / Unknown Venipuncture / Unknown 08/23/2024 5:05 AM EDT 08/23/2024 10:01 AM EDT us Priscilla Doan MD LAB BLOOD ORDERABLES Fin al Result [facility] [address] [place] [address], * (ABNORMAL) Complete blood count (08/23/2024 5:05 AM EDT) WBC 5.8 4.8 - 10.8 K/mcL LAB HEMETOLOGY METHOD 08/23/2024 10:45 AM [facility] RBC 2.60(L) 4.50 - 5.50 M/mcL LAB HEMETOLOGY METHOD 08/23/2024 10:45 AM [facility] Hemoglobin 7.2(L) 13.5 - 17.5 g/dL LAB HEMETOLOGY METHOD 08/23/2024 10:45 AM [facility] Hematocrit 23.9(L) 42.0 - 54.0 % LAB HEMETOLOGY METHOD 08/23/2024 10:45 AM [facility] MCV 90.9 79.0 - 98.0 FL LAB HEMETOLOGY METHOD 08/23/2024 10:45 AM [facility] MCH 27.4 27.0 - 32.0 pcg LAB HEMETOLOGY METHOD 08/23/2024 10:45 AM [facility] MCHC 30.1(L) 32.0 - 37.0 g/dL LAB HEMETOLOGY METHOD 08/23/2024 10:45 AM [facility] RDW 15.6(H) 11.0 - 15.0 % LAB HEMETOLOGY METHOD 08/23/2024 10:45 AM [facility] Platelets 243 130 - 400 K/mcL LAB HEMETOLOGY METHOD 08/23/2024 10:45 AM [facility] MPV 9.8 7.0 - 11.0 FL LAB HEMETOLOGY METHOD 08/23/2024 10:45 AM [facility] NRBC 0.0 <1.0 % LAB HEMETOLOGY METHOD 08/23/2024 10:45 AM [facility] NRBC Absolute 0.00 <0.10 K/mcL LAB HEMETOLOGY METHOD 08/23/2024 10:45 AM [facility] Blood Venous blood specimen / Unknown Venipuncture / Unknown 08/23/2024 5:05 AM EDT 08/23/2024 10:01 AM EDT Priscilla Doan MD LAB BLOOD ORDERABLES Fin al Result Performing Organization Address City/State/[facility] Co de Phone Number [facility] ([facility]) [facility] [address] [place] [address], documented in this encounter Visit Diagnoses Diagnosis Essential (primary) hypertension Unspecified essential hypertension documented in this encounter Care Teams Manager Recruiting Relationship Specialty Start Date End Date Priscilla Doan MD [address] [place] [phone] PCP - General Family Medicine 06/18/24 documented as of this encounter
--- OUTSIDE RECORDS SUMMARY | 2024-09-18 16:02 | XMS_ITS | Encounter Summary ---
Author Organization [facility] Address [address] [place] [address] Care Team Providers Care Cloth Inspector Name Role Phone Priscilla Doan MD Primary Care Provider + Encounter Details Date Type Department Care Team (Late st Contact Info) Description 06/10/2024 Lab Requisition [facility] - Main Lab 299 [facility] [place] [address] Priscilla Doan MD [address] [address] Unspecified viral hepatitis C 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 [...] LAB CHEMISTRY METHOD 06/13/2024 2:19 PM EST [facility] Potassium 5.0 3.5 - 5.5 mmol/L LAB CHEMISTRY METHOD 06/13/2024 2:19 PM EST [facility] Chloride 104 96 - 110 mmol/L LAB CHEMISTRY METHOD 06/13/2024 2:19 PM [facility] CO2 25 21 - 32 mmol/L LAB CHEMISTRY METHOD 06/13/2024 2:19 PM [facility] Anion Gap 7 3 - 11 LAB CHEMISTRY METHOD 06/13/2024 2:19 PM [facility] Glucose 96 70 - 100 mg/dL LAB CHEMISTRY METHOD 06/13/2024 2:19 PM [facility] BUN 39(H) 5 - 25 mg/dL LAB CHEMISTRY METHOD 06/13/2024 2:19 PM [facility] Creatinine 1.42(H) 0.70 - 1.30 mg/dL LAB CHEMISTRY METHOD 06/13/2024 2:19 PM [facility] eGFR 54(L) >=60 mL/min/1. 73m2 LAB CHEMISTRY METHOD 06/13/2024 2:19 PM [facility] Comment:Calculation based on the??Chronic Kidney Disease Epidemiology Collaboration (CKD-EPI) equation refit??without adjustment for race. BUN/Creatinine Ratio 27.5 LAB CHEMISTRY METHOD 06/13/2024 2:19 PM [facility] Calcium 9.1 8.5 - 10.5 mg/dL LAB CHEMISTRY METHOD 06/13/2024 2:19 PM [facility] AST (SGOT) 65(H) 10 - 42 unit/L LAB CHEMISTRY METHOD 06/13/2024 2:19 PM [facility] ALT (SGPT) 69(H) 10 - 60 unit/L LAB CHEMISTRY METHOD 06/13/2024 2:19 PM [facility] Alkaline Phosphatase 140(H) 42 - 121 unit/L LAB CHEMISTRY METHOD 06/13/2024 2:19 PM [facility] Total Protein 5.9(L) 6.0 - 8.0 g/dL LAB CHEMISTRY METHOD 06/13/2024 2:19 PM [facility] Albumin 2.0(L) 3.2 - 5.0 g/dL LAB CHEMISTRY METHOD 06/13/2024 2:19 PM EST [facility] Total Bilirubin 0.3 0.0 - 1.4 mg/dL LAB CHEMISTRY METHOD 06/13/2024 2:19 PM [facility] Blood Venous blood specimen / Unknown Venipuncture / Unknown 06/13/2024 9:56 AM EST 06/13/2024 12:25 PM EST us Priscilla Doan MD LAB BLOOD ORDERABLES Fin al Result [facility] [address] [place] [address], * (ABNORMAL) Complete blood count (06/13/2024 9:56 AM EST) WBC 6.1 4.8 - 10.8 K/mcL LAB HEMETOLOGY METHOD 06/13/2024 1:31 PM [facility] RBC 3.40(L) 4.50 - 5.50 M/mcL LAB HEMETOLOGY METHOD 06/13/2024 1:31 PM [facility] Hemoglobin 9.3(L) 13.5 - 17.5 g/dL LAB HEMETOLOGY METHOD 06/13/2024 1:31 PM [facility] Hematocrit 30.0(L) 42.0 - 54.0 % LAB HEMETOLOGY METHOD 06/13/2024 1:31 PM [facility] MCV 88.8 79.0 - 98.0 FL LAB HEMETOLOGY METHOD 06/13/2024 1:31 PM [facility] MCH 27.5 27.0 - 32.0 pcg LAB HEMETOLOGY METHOD 06/13/2024 1:31 PM [facility] MCHC 31.0(L) 32.0 - 37.0 g/dL LAB HEMETOLOGY METHOD 06/13/2024 1:31 PM EST [facility] RDW 16.5(H) 11.0 - 15.0 % LAB HEMETOLOGY METHOD 06/13/2024 1:31 PM EST [facility] Platelets 254 130 - 400 K/mcL LAB HEMETOLOGY METHOD 06/13/2024 1:31 PM [facility] MPV 9.8 7.0 - 11.0 FL LAB HEMETOLOGY METHOD 06/13/2024 1:31 PM EST [facility] NRBC 0.0 <1.0 % LAB HEMETOLOGY METHOD 06/13/2024 1:31 PM EST [facility] NRBC Absolute 0.00 <0.10 K/mcL LAB HEMETOLOGY METHOD 06/13/2024 1:31 PM [facility] Blood Venous blood specimen / Unknown Venipuncture / Unknown 06/13/2024 9:56 AM EST 06/13/2024 12:25 PM EST us Priscilla Doan MD LAB BLOOD ORDERABLES Fin al Result [facility] [address] [place] [address], documented in this encounter Visit Diagnoses Diagnosis Unspecified viral hepatitis C 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 documented in this encounter Care Teams Cloth Inspector Relationship Specialty Start Date End Date Priscilla Doan MD [address] [address] PCP - General Family Medicine 06/18/24 documented as of this encounter
--- OUTSIDE RECORDS SUMMARY | 2024-09-18 16:02 | XMS_ITS | Encounter Summary ---
Author Organization [facility] Address [address] [place] [address] Care Team Providers Care Timber Sprinkler Name Role Phone Priscilla Doan MD Primary Care Provider + Encounter Details Date Type Department Care Team (Late st Contact Info) Description 06/24/2024 Lab Requisition [facility] - Main Lab 299 [facility] [place] [address] Priscilla Doan MD [address] [address] Unspecified viral hepatitis C 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 [...] coma documented in this encounter Care Teams Timber Sprinkler Relationship Specialty Start Date End Date Priscilla Doan MD [address] [place] [id number] PCP - General Family Medicine 06/18/24 documented as of this encounter
--- OUTSIDE RECORDS SUMMARY | 2024-09-18 16:02 | XMS_ITS | Encounter Summary ---
Author Organization [facility] Address [address] [place] [address] Care Team Providers Care Cnc Router Operator Name Role Phone Priscilla Doan MD Primary Care Provider + Encounter Details Date Type Department Care Team (Late st Contact Info) Description 06/23/2024 Lab Requisition [facility] - Main Lab 299 [facility]ending [facility] [place] [address] Priscilla Doan MD [address] [address] Unspecified cirrhosis of liver (CMS/HCC V24, CMS/HCC [...] LAB CHEMISTRY METHOD 06/23/2024 9:33 AM EST ELISA [facility] ([facility]) [facility] Blood Venous blood specimen / Unknown Venipuncture / Unknown 06/23/2024 7:56 AM EST 06/23/2024 9:05 AM EST us Priscilla Doan MD LAB BLOOD ORDERABLES Fin al Result ELIAS [place]AS [place] ([facility]) H[facility] LAB [address] [place] [address], documented in this encounter Visit Diagnoses Diagnosis Unspecified cirrhosis of liver (CMS/HCC V24, CMS/HCC V28) documented in this encounter Care Teams Cnc Router Operator Relationship Specialty Start Date End Date Priscilla Doan MD [address] [address] PCP - General Family Medicine 06/18/24 documented as of this encounter
--- OUTSIDE RECORDS SUMMARY | 2024-09-18 16:02 | XMS_ITS | Encounter Summary ---
[facility] Address [address] [place] [address] Care Team Providers Care Car Rental Deliverer Name Role Phone Priscilla Doan MD Primary Care Provider + Encounter Details Date Type Department Care Team (Late st Contact Info) Description 07/01/2024 Lab Requisition [facility] - Main Lab 299 [facility] [place] [address] Priscilla Doan MD [address] [address] Unspecified viral hepatitis C 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 [...] LAB CHEMISTRY METHOD 07/04/2024 2:16 PM EST [facility] Potassium 4.4 3.5 - 5.5 mmol/L LAB CHEMISTRY METHOD 07/04/2024 2:16 PM EST [facility] Chloride 106 96 - 110 mmol/L LAB CHEMISTRY METHOD 07/04/2024 2:16 PM [facility] CO2 19(L) 21 - 32 mmol/L LAB CHEMISTRY METHOD 07/04/2024 2:16 PM [facility] Anion Gap 10 3 - 11 LAB CHEMISTRY METHOD 07/04/2024 2:16 PM [facility] Glucose 130(H) 70 - 100 mg/dL LAB CHEMISTRY METHOD 07/04/2024 2:16 PM [facility] BUN 33(H) 5 - 25 mg/dL LAB CHEMISTRY METHOD 07/04/2024 2:16 PM [facility] Creatinine 1.52(H) 0.70 - 1.30 mg/dL LAB CHEMISTRY METHOD 07/04/2024 2:16 PM [facility] eGFR 50(L) >=60 mL/min/1. 73m2 LAB CHEMISTRY METHOD 07/04/2024 2:16 PM [facility] Comment:Calculation based on the??Chronic Kidney Disease Epidemiology Collaboration (CKD-EPI) equation refit??without adjustment for race. BUN/Creatinine Ratio 21.7 LAB CHEMISTRY METHOD 07/04/2024 2:16 PM [facility] Calcium 8.8 8.5 - 10.5 mg/dL LAB CHEMISTRY METHOD 07/04/2024 2:16 PM [facility] AST (SGOT) 26 10 - 42 unit/L LAB CHEMISTRY METHOD 07/04/2024 2:16 PM [facility] ALT (SGPT) 30 10 - 60 unit/L LAB CHEMISTRY METHOD 07/04/2024 2:16 PM [facility] Alkaline Phosphatase 78 42 - 121 unit/L LAB CHEMISTRY METHOD 07/04/2024 2:16 PM [facility] Total Protein 6.1 6.0 - 8.0 g/dL LAB CHEMISTRY METHOD 07/04/2024 2:16 PM [facility] Albumin 1.9(L) 3.2 - 5.0 g/dL LAB CHEMISTRY METHOD 07/04/2024 2:16 PM EST [facility] Total Bilirubin 0.3 0.0 - 1.4 mg/dL LAB CHEMISTRY METHOD 07/04/2024 2:16 PM [facility] Blood Venous blood specimen / Unknown Venipuncture / Unknown 07/04/2024 9:44 AM EST 07/04/2024 12:25 PM EST us Priscilla Doan MD LAB BLOOD ORDERABLES Fin al Result [facility] [address] [place] [address], * (ABNORMAL) Complete blood count (07/04/2024 9:44 AM EST) WBC 11.0(H) 4.8 - 10.8 K/mcL LAB HEMETOLOGY METHOD 07/04/2024 1:39 PM [facility] RBC 3.40(L) 4.50 - 5.50 M/mcL LAB HEMETOLOGY METHOD 07/04/2024 1:39 PM [facility] Hemoglobin 9.2(L) 13.5 - 17.5 g/dL LAB HEMETOLOGY METHOD 07/04/2024 1:39 PM [facility] Hematocrit 30.3(L) 42.0 - 54.0 % LAB HEMETOLOGY METHOD 07/04/2024 1:39 PM [facility] MCV 89.9 79.0 - 98.0 FL LAB HEMETOLOGY METHOD 07/04/2024 1:39 PM [facility] MCH 27.3 27.0 - 32.0 pcg LAB HEMETOLOGY METHOD 07/04/2024 1:39 PM [facility] MCHC 30.4(L) 32.0 - 37.0 g/dL LAB HEMETOLOGY METHOD 07/04/2024 1:39 PM EST [facility] RDW 16.3(H) 11.0 - 15.0 % LAB HEMETOLOGY METHOD 07/04/2024 1:39 PM EST [facility] Platelets 279 130 - 400 K/mcL LAB HEMETOLOGY METHOD 07/04/2024 1:39 PM EST [facility] MPV 10.3 7.0 - 11.0 FL LAB HEMETOLOGY METHOD 07/04/2024 1:39 PM EST [facility] NRBC 0.0 <1.0 % LAB HEMETOLOGY METHOD 07/04/2024 1:39 PM EST [facility] NRBC Absolute 0.00 <0.10 K/mcL LAB HEMETOLOGY METHOD 07/04/2024 1:39 PM [facility] Blood Venous blood specimen / Unknown Venipuncture / Unknown 07/04/2024 9:44 AM EST 07/04/2024 12:25 PM EST us Priscilla Doan MD LAB BLOOD ORDERABLES Fin al Result [facility] [address] [place] [address], documented in this encounter Visit Diagnoses Diagnosis Unspecified viral hepatitis C 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 documented in this encounter Care Teams Car Rental Deliverer Relationship Specialty Start Date End Date Priscilla Doan MD [address] [place] [phone] PCP - General Family Medicine 06/18/24 documented as of this encounter
[2024-09-18 16:08] LABS: MN% 83.4 %; PMN% 16.6 %; WBC Peritoneal Fluid 0.039 X10*3/uL
[2024-09-18 16:14] LABS: RBC Peritoneal Fluid < 0.002 X10*6/uL
--- NOTE | 2024-09-18 16:34 | P.HPHOSP_ITS ---
History of Present Illness Date of Service: 09/18/24 Attending physician on admission: Erasto Sena Chief Complaint: hypotension s/p paracentesis 9L 69M PMH diabetes, coronary disease, CVA with right hemiplegia, chronic indwelling Smith catheter, history of DVT on Eliquis, HCV cirrhosis with ascites, CKD 3, UTI proteus, hyperlipidemia currently residing in a long-term care facility came in with worsening ascites and abdominal distension and underwent a paracentesis removing 9 L of abdominal fluid. Patient experienced hypotension, systolic in the high 80's and required 2 bags of albumin and emergency room requested admission for observation noting patient's low blood pressure. H/H 7.2/23, likely dilutional and pt has hx of low blood counts. K 5.8, non-hemolyzed sample. Patient is not able to provide any HPI but can follow commands and answer yes and no questions including no to chest pain, nausea, vomiting, abdominal pain or lower leg pain. Patient offers a yes to being hungry. Review of Systems 2 Review of Systems: Patient denied any chest pain, shortness of breath, nausea, vomiting, abdominal pain, headache, visual changes or lower leg pain. Yes all other systems are reviewed and are negative [facility] Medical History Hypotension Chronic UTI (urinary tract infection) Anemia Coronary artery disease Depression Hyperlipidemia CKD (chronic kidney disease) CVA (cerebral vascular accident) Liver cirrhosis Diabetes mellitus Chronic indwelling Smith catheter Cirrhosis of liver with ascites Hepatitis C Cognitive capacity: alert to self very soft spoken dependent for most aspects of care, can not ambulate Functional capacity: bed bound Pertinent family history: Patient unable to provide Social History Household Members: Unknown / Unable to assess Housing: [facility] Housing Other:: unknown, pt poor historian Do you presently have visiting nurse or other home services: Yes Unable to assess alcohol history related to: Unable to respond Alcohol intake: former Patient Tobacco Use Status: Former Tobacco user e-Cigarette/Vaping Use: Never Used Second Hand Smoke Exposure: No Use of substances other than those prescribed or required for medical reasons: Unable to respond Advance Directives: Yes Advance Directives on File: Yes Advance Directives Date on File: 07/22/24 Do you have a plan to hurt others: No Plan service: No Ebola Risk: Travel/Contact With Anyone From Affected Area/s: No Has Patient Experienced Ebola Symptoms: No Meds Allergies Allergy/AdvReac Type Severity Reaction Status Date / Time No Known Allergies Allergy Verified 09/18/24 15:00 Active Medications: Current Medications Calcium Carbonate (Calcium Carbonate 750 Mg Tab.Chew) 750 mg PO Q4H PRN PRN Reason: Heartburn Albumin Human (Kedbumin 25 %) 100 mls @ 133.333 mls/hr IV Q1H LOTTIE Stop: 09/18/24 16:44 Last Admin: 09/18/24 16:21 Dose: 133.33 mls/hr Magnesium Hydroxide (Milk Of Magnesia 30 Ml Oral.Susp) 30 ml PO DAILY PRN PRN Reason: Constipation Melatonin (Melatonin 3 Mg Tablet) 6 mg PO BEDTIME PRN PRN Reason: Insomnia Ondansetron HCl (Ondansetron Hcl 4 Mg/2 Ml Vial) 4 mg IVPUSH Q8H PRN PRN Reason: Nausea and Vomiting Senna (Sennosides 8.6 Mg Tablet) 17.2 mg PO BEDTIME [facility] Sodium Chloride (0.9 % Sodium Chloride Flush 3 Ml Syringe) 3 ml IVFLUSH QSHIFT [facility] Home Medications ?Medication ?Instructions ?Recorded ?Confirmed ?Last Taken ?Type apixaban 5 mg tablet 5 mg PO BID 06/26/24 09/18/24 Unknown History atorvastatin 10 mg tablet 10 mg PO DAILY 06/26/24 09/18/24 Unknown History baclofen 5 mg tablet 5 mg PO TID 06/26/24 09/18/24 Unknown History bisacodyl 10 mg rectal suppository 10 mg AR DAILY PRN Constipation, 8 06/26/24 09/18/24 Unknown History hrs after MOM cholestyramine (with sugar) 4 gram 4 g PO DAILY 06/26/24 09/18/24 Unknown History oral powder finasteride 5 mg tablet 5 mg PO DAILY 06/26/24 09/18/24 Unknown History folic acid 1 mg tablet 1 mg PO DAILY 06/26/24 09/18/24 Unknown History gabapentin 100 mg capsule 200 mg PO BID 06/26/24 09/18/24 Unknown History magnesium hydroxide 400 mg/5 mL 30 ml PO DAILY PRN Constipation, 06/26/24 09/18/24 Unknown History oral suspension (Milk of Magnesia) use first magnesium oxide 400 mg PO DAILY 06/26/24 09/18/24 Unknown History midodrine 10 mg tablet 10 mg PO TID 06/26/24 09/18/24 Unknown History multivitamin 1 tab PO DAILY 06/26/24 09/18/24 Unknown History pantoprazole 20 mg tablet,delayed 20 mg PO DAILY@0630 06/26/24 09/18/24 Unknown History release sodium phosphates 19 gram-7 118 ml AR DAILY PRN Constipation,8 06/26/24 09/18/24 Unknown History gram/118 mL enema (Fleet Enema) hrs after bisacodyl tamsulosin 0.4 mg capsule (Flomax) 0.8 mg PO DAILY 06/26/24 09/18/24 Unknown History furosemide 20 mg tablet 10 mg PO DAILY 07/16/24 09/18/24 Unknown History lactulose 10 gram/15 mL oral 10 g PO Q12H PRN Constipation 08/06/24 09/18/24 Unknown History solution metformin 500 mg tablet 500 mg PO QPM 08/06/24 09/18/24 Unknown History spironolactone 25 mg tablet 12.5 mg PO DAILY 08/23/24 09/18/24 Unknown History acetaminophen 325 mg tablet 650 mg PO Q6H PRN Fever Or Pain 09/18/24 09/18/24 Unknown History carboxymethylcellulose sodium 1 % 1 drp ophthalmic (eye) QID 09/18/24 09/18/24 Unknown History eye drops (Artificial Tears (carboxymethylcellulose)) collagenase clostridium histo. 250 1 appl topical DAILY 09/18/24 09/18/24 Unknown History unit/gram topical ointment (Santyl) escitalopram oxalate 5 mg tablet 5 mg PO DAILY 09/18/24 09/18/24 Unknown History mirtazapine 7.5 mg tablet 7.5 mg PO BEDTIME 09/18/24 09/18/24 Unknown History Physical Exam 2 Vital Signs and Narrative: Vital Signs: Last Vital Signs Temp 98.1 F 09/18/24 16:00 Pulse 102 H 09/18/24 16:00 Resp 18 09/18/24 16:00 BP 108/59 L 09/18/24 16:00 Pulse Ox 99 09/18/24 16:00 O2 Del Method Room Air 09/18/24 16:00 BMI result Body Mass Index 33.6 Alert and orientated X1, self unable to provide good history. Neuro: pt can follow commands when asked EYES: PERRLA, EOM intact ENT: hearing intact, lips drym nares patent no epistaxis Cardiac: S1 S2 RRR, no murmur, no JVD, anasarca noted in BLEs and upper arms Pulmonary: lungs diminished B Abdominal: BS active in all 4 quadrants, no guarding, tenderness, rebounding, paracentesis site clean and dry no leakage noted MSK: poor strength upper and lower ext : no CVA tenderness chronic Smith catheter in place draining cloudy urine Extremities: pitting edema in upper and lower extremities, pulses palpable Psych: mood stable, judgement and insight poor Skin: no obvious open wounds, unable to view backside on admission (no help available to turn pt) Results Labs 09/18/24 15:37 09/18/24 15:37 Labs: Laboratory Results - last 24 hr 09/18/24 09/18/24 15:37 15:38 MCV 90.6 MCH 28.3 MCHC 31.3 RDW 16.3 H Plt Count 176 MPV 9.3 L Immature Gran % (Auto) 0.4 Neut % (Auto) 75.1 H Lymph % (Auto) 13.9 L [place] % (Auto) 7.8 Eos % (Auto) 2.5 Baso % (Auto) 0.3 Lymph # (Auto) 0.9 L [place] # (Auto) 0.5 Eos # (Auto) 0.2 Baso # (Auto) 0.0 Abs Immat Gran (auto) 0.03 Absolute Neuts (auto) 5.1 Absolute Nucleated RBC 0.000 Nucleated RBC % (auto) 0.0 PT 19.6 H D INR 1.7 H Anion Gap 16 Estim Creat Clear Calc 67.1 Estimated GFR 58 Random Glucose 155 H Calcium 8.3 L Ammonia 37 Peritoneal WBC 0.039 Peritoneal RBC < 0.002 ECG Prior ECG tracings: not available for review Assessment and Plan (1) S/P abdominal paracentesis: Status: Acute (2) Hypotension: Qualifiers: Hypotension type: hypotension due to hypovolemia Qualified Code(s): E 86.1 - Hypovolemia Status: Acute Plan 69M PMH diabetes, coronary disease, CVA with right hemiplegia, chronic indwelling Smith catheter, history of DVT on Eliquis, HCV cirrhosis with ascites, CKD 3, UTI proteus, hyperlipidemia per ED provider, presented with severe abdominal distention, patient usually require paracentesis every 2 weeks and because he require BP monitoring after the paracentesis usually get admitted. No abdominal pain, no fever, no chills. Pt unable to provide HPI or PMH. Can answer yes/no questions. ED provider removed 9 L via paracentesis and blood pressure was noted to be in the high 80s systolic, heart rate 100. To units of albumin were ordered via ED provider and blood pressure has improved from 96-108 systolic. Patient currently asymptomatic answers no to chest pain, shortness of breath or abdominal pain. H&H 7.2 and 23. Patient is known to have low blood counts and is currently on blood thinners (eliquis). May be dilutional. In addition potassium 5.8 via non hemolyzed specimen. Patient be admitted for observation on telemetry with follow-up labs and monitoring of vital signs. Status post abdominal paracentesis with noted hypotension -patient received 2 units of albumin and blood pressures have improved -telemetry, vitals Q4hrs and prn -Will continue midodrine, if blood pressure stabilizes patient can resume furosemide and spironolactone in the a.m. Anemia/ on anticoagulation -H&H 7.2/23, patient is on Eliquis, H/H 2200 with type and screen -may be dilutional, we will order stool for occult -PPI ordered -GI consult if indicated Hyperkalemia -5.8 and non hemolyzed specimen, 1 dose of Lokelma 10 mg provided -repeat BMP in the a.m. Chronic Smith placement -urine appeared cloudy, checking UA with reflex -patient comes from a long-term care facility, unable to confirm when Smith was last changed likely within the last 30 days DVT prophylax: Eliquis on hold due to low H&H PPI prophylaxis: protonix ordered MED REC Completed Quality Stroke Does the patient have a stroke diagnosis?: No Reason for No Anti-thrombotic by Day Two: Contraindicated VTE Prior VTE?: No VTE Risk Level:: Medical - moderate - high VTE Device Contraindication: Treatment Not Tolerated VTE Drug Contraindication: N/A - Med Ordered
--- NOTE | 2024-09-18 16:34 | PHA.MEDREC ---
Pharmacy Consult ? Medication Reconciliation Pharmacy has completed the medication reconciliation. [facility].
[2024-09-18 16:44] LABS: BF Shift QC OK YES; Lymphocyte Peritoneal Fl 27 %; Monocytes Peritoneal Fl 14 %; Neutrophils Peritoneal Fluid 18 %; Other Peritioneal Fl 41 %
[2024-09-18 17:29] LABS: Appearance Urine Turbid; Color Urine Yellow; Glucose Urine UA Negative (Negative); Leukocyte Esterase Urine Large (3+) (Negative); Nitrite Urine Positive (Negative); PH 6.5 (5.0-9.0); Specific Gravity - Urine 1.015 (1.005-1.025); UMIC TRIGGER UACC YES; Urine Blood Moderate (2+) (Negative); Urine Ketones Negative (Negative); Urine Protein 100 (2+) mg/dL (Neg-Trace)
[2024-09-18 17:40] LABS: Bacteria Urine 4+ (None Seen); Hyaline Casts Urine >20 /LPF (0-2); Squamous Epithelial Cell Urine 0-2 /HPF (0-2); UACC Culture Trigger YES; WBC Urine >50 /HPF (0-5)
[2024-09-18] MEDS: Sodium Zirconium Cyclosilicate 10 GM POWD.PACK PO (18:36)
[2024-09-18] MEDS: Gabapentin 100 MG CAPSULE 200 MG PO (21:38)
[2024-09-18] MEDS: Sodium Bicarbonate 650 MG TABLET PO (21:38)
[2024-09-18] MEDS: Mirtazapine 7.5 MG TABLET PO (21:38)
[2024-09-18] MEDS: 0.9 % Sodium Chloride Flush 3 ML SYRINGE IVFLUSH (21:38)
[2024-09-18] MEDS: Baclofen 10 MG TABLET 5 MG PO (21:38)
[2024-09-18] MEDS: Midodrine HCl 10 MG TABLET PO (21:38)
[2024-09-18] MEDS: Sennosides 8.6 MG TABLET 17.2 MG PO (21:38)
[2024-09-18 22:27] LABS: Hematocrit 24.7 % (42.0-52.0); Hemoglobin 7.9 g/dl (14.0-18.0)
[2024-09-18 22:35] LABS: Potassium 5.4 mmol/L (3.3-5.1)
--- NOTE | 2024-09-18 22:55 | PM.EVENT ---
Event Note Date of Service: 09/18/24 Event Note: Follow up to repeat H/H and K. H/H improved to 7.9/ 24.7, hemodynamics stable, no indicaton for transfusion. K down to 5.4. Will await AM BMP for K level prior to giving more Lokelma. Pt will likely be able to resume eliquis in AM> Time Spent With Patient Time: Total time managing care of this patient today ____ minutes.
[2024-09-19] VITALS (16 sets, daily range): BP systolic 84–116; BP diastolic 42–67; PULSE 86–109; RESP 14–20; TEMP 36.3–37.1; O2SAT 95–99; BMI 29.0
[2024-09-19] MEDS: Albumin Human 25 % 50 ML 100 ML IV ×2 (04:16→04:46)
[2024-09-19] MEDS: Pantoprazole Sodium 40 MG/10 ML VIAL IVPUSH (05:29)
[2024-09-19] MEDS: Magnesium Oxide 400 MG TABLET PO (08:27)
[2024-09-19] MEDS: Baclofen 10 MG TABLET 5 MG PO ×3 (08:27→19:41)
[2024-09-19] MEDS: 0.9 % Sodium Chloride Flush 3 ML SYRINGE IVFLUSH ×3 (08:27→19:43)
[2024-09-19] MEDS: Multivitamin TABLET 1 TAB PO (08:27)
[2024-09-19] MEDS: Sodium Bicarbonate 650 MG TABLET PO ×2 (08:27→19:40)
[2024-09-19] MEDS: Folic Acid 1 MG TABLET PO (08:27)
[2024-09-19] MEDS: Midodrine HCl 10 MG TABLET PO ×2 (08:27→15:20)
[2024-09-19] MEDS: Atorvastatin Calcium 10 MG TABLET PO (08:27)
[2024-09-19] MEDS: Tamsulosin HCL 0.4 MG CAPSULE 0.8 MG PO (08:27)
[2024-09-19] MEDS: Escitalopram Oxalate 5 MG TABLET PO (08:27)
[2024-09-19] MEDS: Finasteride 5 MG TABLET PO (08:27)
[2024-09-19] MEDS: Artificial Tears 15 ML DROPS 1 DROP EYE-BOTH ×4 (08:27→21:40)
[2024-09-19] MEDS: Gabapentin 100 MG CAPSULE 200 MG PO ×2 (08:27→19:41)
[2024-09-19] MEDS: Collagenase Clostridium Hist. 30 GM TUBE 1 APPL TOPICAL (08:28)
[2024-09-19 08:40] LABS: MANUAL DIFF FLAG NO
[2024-09-19 08:49] LABS: Basophils Percent Auto 0.6 % (0-2); Eosinophils Absolute Auto 0.1 X10*3/uL (0.0-0.4); Eosinophils Percent Auto 2.7 % (0-4); Hematocrit 22.9 % (42.0-52.0); Hemoglobin 7.2 g/dl (14.0-18.0); Imm Gran Abs Auto 0.02 X10*3/uL (0.00-0.03); Imm Gran Pct Auto 0.4 % (0.0-0.4); Lymphocytes Absolute Auto 0.7 X10*3/uL (1.2-4.9); Lymphocytes Percent Auto 13.6 % (20-40); Mean Corpuscular HGB Conc 31.4 g/dl (31.0-36.0); Mean Corpuscular Volume 89.1 fL (80.0-98.0); Mean Platelet Volume 9.2 fL (9.4-12.4); Monocytes Absolute Auto 0.4 X10*3/uL (0.1-1.2); Monocytes Percent Auto 6.8 % (2-11); Neutrophils Absolute Auto 3.9 x10*3/uL (2.0-8.3); Neutrophils Percent Auto 75.9 % (45-73); Platelet Count 159 X10*3/uL (160-400); Red Blood Count 2.57 X10*6/uL (4.60-5.80); Red Cell Distribution Width 15.9 % (11.0-16.0); White Blood Count 5.2 X10*3/uL (4.8-10.8)
[2024-09-19 09:07] LABS: Alanine Aminotransferase < 6 U/L (0-40); Albumin Level 2.1 g/dL (3.5-5.0); Anion Gap 11 (12-20); Aspartate Amino Transferase 24 U/L (5-37); Bilirubin Total 0.2 mg/dL (0.0-1.0); Blood Urea Nitrogen 37 mg/dL (9-16); Carbon Dioxide 30 mmol/L (22-29); Chloride 102 mmol/L (96-108); Creatinine Clr Calc Pharmacy 66.9; Estimated Glomerular Filt Rate > 60; Glucose Random 108 mg/dL (60-115); Potassium 4.7 mmol/L (3.3-5.1); Sodium 138 mmol/L (135-145); Total Protein 5.1 g/dL (6.5-8.0)
[2024-09-19 09:10] LABS: Alkaline Phosphatase 49 U/L (39-117)
--- NOTE | 2024-09-19 09:21 | MHC.CM.PN ---
Winnie 09/19/24, given to pt. he is a LTC resident at [facility], He will return there at DC via BLS. PCP is Bing Doan, HCP is on file: Shanda. DCP: return to SNF. CM to follow for DC needs.
--- NOTE | 2024-09-19 11:53 | HO.PM.IMPN ---
Subjective Subjective Date of Service: 09/19/24 Interval History: f/u on post paracentesis hypotension after removal of 9+ liters yesterday assymptomatic BP presently 84/52 Physical Exam Vital Signs: Vital Signs: Last Vital Signs Temp 97.5 F 09/19/24 11:49 Pulse 102 H 09/19/24 11:49 Resp 20 09/19/24 11:49 BP 84/52 L 09/19/24 11:49 Pulse Ox 96 09/19/24 11:49 O2 Del Method Room Air 09/19/24 11:49 BMI result Body Mass Index 29.0 General: AO X 3, no acute distress, frail, ill appearing Resp: CTA bilateral, no accessory muscles used CVS: S1,S2,RRR GI: soft, non tender, non distended Neuro: motor grossly intact, alert Objective Data Active Medications Acetaminophen (Acetaminophen 325 Mg Tablet) 650 mg PO Q6H PRN PRN Reason: Fever Or Pain Apixaban (Apixaban 5 Mg Tablet) 5 mg PO BID [facility] Artificial Tears (Artificial Tears 15 Ml Drops) 1 drop EYE-BOTH QID [facility] Last Admin: 09/19/24 08:27 Dose: 1 drop Documented By: JUAN Atorvastatin Calcium (Atorvastatin Calcium 10 Mg Tablet) 10 mg PO DAILY [facility] Last Admin: 09/19/24 08:27 Dose: 10 mg Documented By: JUAN Baclofen (Baclofen 10 Mg Tablet) 5 mg PO TID [facility] Last Admin: 09/19/24 08:27 Dose: 5 mg Documented By: JUAN Bisacodyl (Bisacodyl 10 Mg Supp.Rect) 10 mg UT DAILY PRN PRN Reason: Constipation, 8 hrs after MOM Calcium Carbonate (Calcium Carbonate 750 Mg Tab.Chew) 750 mg PO Q4H PRN PRN Reason: Heartburn Collagenase (Collagenase Clostridium Hist. 30 Gm Tube) 1 appl TOPICAL DAILY [facility]; Protocol Last Admin: 09/19/24 08:28 Dose: 1 appl Documented By: JUAN Escitalopram Oxalate (Escitalopram Oxalate 5 Mg Tablet) 5 mg PO DAILY [facility] Last Admin: 09/19/24 08:27 Dose: 5 mg Documented By: JUAN Finasteride (Finasteride 5 Mg Tablet) 5 mg PO DAILY [facility] Last Admin: 09/19/24 08:27 Dose: 5 mg Documented By: JUAN Folic Acid (Folic Acid 1 Mg Tablet) 1 mg PO DAILY [facility] Last Admin: 09/19/24 08:27 Dose: 1 mg Documented By: JUAN Gabapentin (Gabapentin 100 Mg Capsule) 200 mg PO BID [facility] Last Admin: 09/19/24 08:27 Dose: 200 mg Documented By: JUAN Albumin Human (Kedbumin 25 %) 100 mls @ 100 mls/hr IV Q6H [facility] Stop: 09/20/24 06:59 Lactulose (Lactulose 20 Gm/30 Ml Solution) 10 gm PO Q12H PRN PRN Reason: Constipation Magnesium Hydroxide (Milk Of Magnesia 30 Ml Oral.Susp) 30 ml PO DAILY PRN PRN Reason: Constipation Magnesium Oxide (Magnesium Oxide 400 Mg Tablet) 400 mg PO DAILY [facility] Last Admin: 09/19/24 08:27 Dose: 400 mg Documented By: JUAN Melatonin (Melatonin 3 Mg Tablet) 6 mg PO BEDTIME PRN PRN Reason: Insomnia Midodrine (Midodrine Hcl 10 Mg Tablet) 10 mg PO TID [facility] Last Admin: 09/19/24 08:27 Dose: 10 mg Documented By: JUAN Mirtazapine (Mirtazapine 7.5 Mg Tablet) 7.5 mg PO BEDTIME [facility] Last Admin: 09/18/24 21:38 Dose: 7.5 mg Documented By: CON Multivitamins/Vitamin C (Multivitamin Tablet) 1 tab PO DAILY [facility] Last Admin: 09/19/24 08:27 Dose: 1 tab Documented By: JUAN Ondansetron HCl (Ondansetron Hcl 4 Mg/2 Ml Vial) 4 mg IVPUSH Q8H PRN PRN Reason: Nausea and Vomiting Pantoprazole Sodium (Pantoprazole Sodium 40 Mg/10 Ml Vial) 40 mg IVPUSH DAILY@0630 [facility] Last Admin: 09/19/24 05:29 Dose: 40 mg Documented By: CON Senna (Sennosides 8.6 Mg Tablet) 17.2 mg PO BEDTIME [facility] Last Admin: 09/18/24 21:38 Dose: 17.2 mg Documented By: CON Sodium Bicarbonate (Sodium Bicarbonate 650 Mg Tablet) 650 mg PO BID [facility] Last Admin: 09/19/24 08:27 Dose: 650 mg Documented By: JUAN Sodium Chloride (0.9 % Sodium Chloride Flush 3 Ml Syringe) 3 ml IVFLUSH QSHIFT [facility] Last Admin: 09/19/24 08:27 Dose: 3 ml Documented By: JUAN Tamsulosin HCl (Tamsulosin Hcl 0.4 Mg Capsule) 0.8 mg PO DAILY [facility] Last Admin: 09/19/24 08:27 Dose: 0.8 mg Documented By: JUAN Labs 09/19/24 08:33 09/19/24 08:33 Labs: Laboratory Results - last 24 hr 09/18/24 09/18/24 09/18/24 15:37 15:38 17:21 MCV 90.6 MCH 28.3 MCHC 31.3 RDW 16.3 H Plt Count 176 MPV 9.3 L Immature Gran % (Auto) 0.4 Neut % (Auto) 75.1 H Lymph % (Auto) 13.9 L [place] % (Auto) 7.8 Eos % (Auto) 2.5 Baso % (Auto) 0.3 Lymph # (Auto) 0.9 L [place] # (Auto) 0.5 Eos # (Auto) 0.2 Baso # (Auto) 0.0 Abs Immat Gran (auto) 0.03 Absolute Neuts (auto) 5.1 Absolute Nucleated RBC 0.000 Nucleated RBC % (auto) 0.0 PT 19.6 H D INR 1.7 H Anion Gap 16 Estim Creat Clear Calc 67.1 Estimated GFR 58 Random Glucose 155 H Calcium 8.3 L Total Bilirubin AST ALT Alkaline Phosphatase Ammonia 37 Total Protein Albumin Urine Color Yellow Urine Appearance Turbid Urine pH 6.5 Ur Specific [place] 1.015 Urine Protein 100 (2+) H Urine Glucose (UA) Negative Urine Ketones Negative Urine Blood Moderate (2+) H Urine Nitrite Positive H Ur Leukocyte Esterase Large (3+) H Urine RBC 11-20 H Urine WBC >50 H Ur Squamous Epith Cells 0-2 Urine Bacteria 4+ Hyaline Casts >20 Peritoneal WBC 0.039 Peritoneal RBC < 0.002 Periton Neutrophils 18 Periton Lymphocytes 27 Peritoneal Monocytes 14 Peritoneal Other Cells 41 09/19/24 08:33 MCV 89.1 MCH 28.0 MCHC 31.4 RDW 15.9 Plt Count 159 L MPV 9.2 L Immature Gran % (Auto) 0.4 Neut % (Auto) 75.9 H Lymph % (Auto) 13.6 L [place] % (Auto) 6.8 Eos % (Auto) 2.7 Baso % (Auto) 0.6 Lymph # (Auto) 0.7 L [place] # (Auto) 0.4 Eos # (Auto) 0.1 Baso # (Auto) 0.0 Abs Immat Gran (auto) 0.02 Absolute Neuts (auto) 3.9 Absolute Nucleated RBC 0.000 Nucleated RBC % (auto) 0.0 PT INR Anion Gap 11 L Estim Creat Clear Calc 66.9 Estimated GFR > 60 Random Glucose 108 Calcium 8.0 L Total Bilirubin 0.2 AST 24 ALT < 6 Alkaline Phosphatase 49 Ammonia Total Protein 5.1 L Albumin 2.1 L Urine Color Urine Appearance Urine pH Ur Specific [place] Urine Protein Urine Glucose (UA) Urine Ketones Urine Blood Urine Nitrite Ur Leukocyte Esterase Urine RBC Urine WBC Ur Squamous Epith Cells Urine Bacteria Hyaline Casts Peritoneal WBC Peritoneal RBC Periton Neutrophils Periton Lymphocytes Peritoneal Monocytes Peritoneal Other Cells Microbiology Microbiology Results: Microbiology 09/18/24 Unknown Urine Culture - Preliminary Urine Catheterized - Smith Catheter Culture in progress. 09/18/24 15:38 Gram Stain - Final Abdominal Fluid Routine Culture - Preliminary No growth to date. Anaerobic Culture - Preliminary No growth to date. Assessment and Plan (1) Hypotension: Status: Acute (2) Ascites: Status: Acute (3) S/P abdominal paracentesis: Status: Acute Plan 69M PMH diabetes, coronary disease, cva with right hemiplegia, chronic indwelling Smith catheter, history of DVT, HCV cirrhosis with recurrent ascites, CKD 3, hyperlipidemia presented with abdominal distention, and pain HCV cirrhosis with symptomatic ascites Status post 9.3 L paracentesis ine ED on 09/18/2024, no evidence of sbp bp now low, will give albumin and peristently low ivf continue midodrine as well Acute hyperkalemia Resolved with lokelma Diabetes Insulin sliding scale BPH with chronic urinary retention Continue Smith, Flomax History of right common femoral vein DVT may 2024 Continue Eliquis, monitor H/H Anemia of chronic disease, H/H very low but appear relatively stable. Full Code monitoring of hypotension and iv albumin Quality Stroke Does the patient have a stroke diagnosis?: No Reason for No Anti-thrombotic by Day Two: Contraindicated VTE Prior VTE?: No VTE Risk Level:: Medical - moderate - high VTE Device Contraindication: Treatment Not Tolerated VTE Drug Contraindication: N/A - Med Ordered
[2024-09-19] MEDS: Albumin Human 25 % 100 ML IV ×2 (11:59→18:37)
[2024-09-19] MEDS: Apixaban 5 MG TABLET PO ×2 (11:59→19:41)
[2024-09-19 12:11] LABS: Glucose, Whole Blood 148 mg/dL (60-115)
[2024-09-19 15:28] LABS: Glucose, Whole Blood 184 mg/dL (60-115)
--- NOTE | 2024-09-19 15:40 | MHC.CM.PN ---
PONCHO spoke with Lydia, HCP to give IMM, discussed on phone with will leave a copy in pt.'s room. HCP confirmed that Pt.'s DCP is to return to [facility].
[2024-09-19] MEDS: Insulin Lispro 100 UNIT/ML 3 ML VIAL SUBCUT ×2 (15:54→21:40)
--- NOTE | 2024-09-19 16:11 | MHC.CLN ---
NUTRITION DIET=2 G SODIUM. SKIN WITH MULTIPLE OPEN AREAS TO COCCYX. ADDING ENSURE MAX BID TO PROMOTE WOUND HEALING. SUPPLEMENT PROVIDES 300 KCALS, 60 G PROTEIN. FOLLOW FOR PO INTAKE AND SKIN INTEGRITY. SEE CLINICAL NUTRITION ASSESSMENT 09/19/24.
[2024-09-19] MEDS: Sennosides 8.6 MG TABLET 17.2 MG PO (19:40)
[2024-09-19] MEDS: Mirtazapine 7.5 MG TABLET PO (19:40)
[2024-09-19 21:35] LABS: Glucose, Whole Blood 160 mg/dL (60-115)
[2024-09-20] VITALS (14 sets, daily range): BP systolic 91–145; BP diastolic 54–64; PULSE 87–109; RESP 8–18; TEMP 36.2–37.1; O2SAT 93–97; BMI 29.0
[2024-09-20] MEDS: Albumin Human 25 % 100 ML IV ×2 (00:50→05:58)
[2024-09-20 01:53] LABS: OBS1 POSITIVE (NEGATIVE)
[2024-09-20 01:54] LABS: OBS Int Ctl Valid YES
[2024-09-20] MEDS: Pantoprazole Sodium 40 MG/10 ML VIAL IVPUSH ×2 (05:58→19:46)
[2024-09-20 07:21] LABS: Glucose, Whole Blood 95 mg/dL (60-115)
[2024-09-20] MEDS: 0.9 % Sodium Chloride Flush 3 ML SYRINGE IVFLUSH ×3 (08:07→19:51)
[2024-09-20] MEDS: Apixaban 5 MG TABLET PO (08:11)
[2024-09-20] MEDS: Folic Acid 1 MG TABLET PO (08:12)
[2024-09-20] MEDS: Finasteride 5 MG TABLET PO (08:12)
[2024-09-20] MEDS: Atorvastatin Calcium 10 MG TABLET PO (08:12)
[2024-09-20] MEDS: Escitalopram Oxalate 5 MG TABLET PO (08:12)
[2024-09-20] MEDS: Gabapentin 100 MG CAPSULE 200 MG PO ×2 (08:12→20:06)
[2024-09-20] MEDS: Midodrine HCl 10 MG TABLET PO ×2 (08:13→14:32)
[2024-09-20] MEDS: Magnesium Oxide 400 MG TABLET PO (08:13)
[2024-09-20] MEDS: Sodium Bicarbonate 650 MG TABLET PO ×2 (08:13→20:06)
[2024-09-20] MEDS: Multivitamin TABLET 1 TAB PO (08:13)
[2024-09-20] MEDS: Tamsulosin HCL 0.4 MG CAPSULE 0.8 MG PO (08:14)
[2024-09-20] MEDS: Baclofen 10 MG TABLET 5 MG PO ×3 (08:14→20:06)
[2024-09-20] MEDS: Artificial Tears 15 ML DROPS 1 DROP EYE-BOTH ×4 (08:25→20:09)
[2024-09-20] MEDS: Collagenase Clostridium Hist. 30 GM TUBE 1 APPL TOPICAL (08:45)
[2024-09-20 11:17] LABS: Glucose, Whole Blood 114 mg/dL (60-115)
[2024-09-20 14:13] LABS: Hematocrit 24.7 % (42.0-52.0); Hemoglobin 7.7 g/dl (14.0-18.0)
[2024-09-20 16:01] LABS: Glucose, Whole Blood 178 mg/dL (60-115)
--- NOTE | 2024-09-20 16:29 | HO.PM.IMPN ---
Subjective Subjective Date of Service: 09/20/24 Interval History: anemia left upper arm brusing body swelling Review of Systems as above. Review of Systems: Yes all other systems are reviewed and are negative Physical Exam Vital Signs: Vital Signs: Last Vital Signs Temp 97.5 F 09/20/24 15:28 Pulse 98 09/20/24 15:28 Resp 18 09/20/24 15:28 BP 145/62 H 09/20/24 15:28 Pulse Ox 95 09/20/24 15:28 O2 Del Method Room Air 09/20/24 15:28 BMI result Body Mass Index 29.0 General: AO X 3, no acute distress, frail, chronic ill appearing Resp: air entry fair ,no rales CVS: S1,S2,RRR GI: soft, non tender, non distended Neuro: motor grossly intact, alert ext -has edema left : Upper arm significant bruising/swelling Objective Data Active Medications Acetaminophen (Acetaminophen 325 Mg Tablet) 650 mg PO Q6H PRN PRN Reason: Fever Or Pain Apixaban (Apixaban 5 Mg Tablet) 5 mg PO BID [facility] Last Admin: 09/20/24 08:11 Dose: 5 mg Documented By: MARIELENA Artificial Tears (Artificial Tears 15 Ml Drops) 1 drop EYE-BOTH QID [facility] Last Admin: 09/20/24 14:42 Dose: 1 drop Documented By: JUAN Atorvastatin Calcium (Atorvastatin Calcium 10 Mg Tablet) 10 mg PO DAILY [facility] Last Admin: 09/20/24 08:12 Dose: 10 mg Documented By: MARIELENA Baclofen (Baclofen 10 Mg Tablet) 5 mg PO TID [facility] Last Admin: 09/20/24 14:32 Dose: 5 mg Documented By: JUAN Bisacodyl (Bisacodyl 10 Mg Supp.Rect) 10 mg ID DAILY PRN PRN Reason: Constipation, 8 hrs after MOM Calcium Carbonate (Calcium Carbonate 750 Mg Tab.Chew) 750 mg PO Q4H PRN PRN Reason: Heartburn Collagenase (Collagenase Clostridium Hist. 30 Gm Tube) 1 appl TOPICAL DAILY [facility]; Protocol Last Admin: 09/20/24 08:45 Dose: 1 appl Documented By: MARIELENA Comments: applied to coccyx and left buttock Dextrose (Dextrose 50 % 25 Gm/50 Ml Syringe) 25 gm IVPUSH Q15M PRN; Protocol PRN Reason: per Hypoglycemia Standing Ord. Escitalopram Oxalate (Escitalopram Oxalate 5 Mg Tablet) 5 mg PO DAILY [facility] Last Admin: 09/20/24 08:12 Dose: 5 mg Documented By: MARIELENA Finasteride (Finasteride 5 Mg Tablet) 5 mg PO DAILY [facility] Last Admin: 09/20/24 08:12 Dose: 5 mg Documented By: MARIELENA Folic Acid (Folic Acid 1 Mg Tablet) 1 mg PO DAILY [facility] Last Admin: 09/20/24 08:12 Dose: 1 mg Documented By: MARIELENA Gabapentin (Gabapentin 100 Mg Capsule) 200 mg PO BID [facility] Last Admin: 09/20/24 08:12 Dose: 200 mg Documented By: MARIELENA Glucose (Glucose Gel 15 Gm Gel..Gram.) 15 gm PO Q15M PRN; Protocol PRN Reason: per Hypoglycemia Standing Ord. Insulin Human Lispro (Insulin Lispro 100 Unit/Ml 3 Ml Vial) 0 unit SUBCUT QIDACHS [facility]; Protocol Last Admin: 09/20/24 11:14 Dose: Not Given Documented By: JUAN Non-Admin Reason: No Insulin Coverage Lactulose (Lactulose 20 Gm/30 Ml Solution) 10 gm PO Q12H PRN PRN Reason: Constipation Magnesium Hydroxide (Milk Of Magnesia 30 Ml Oral.Susp) 30 ml PO DAILY PRN PRN Reason: Constipation Magnesium Oxide (Magnesium Oxide 400 Mg Tablet) 400 mg PO DAILY [facility] Last Admin: 09/20/24 08:13 Dose: 400 mg Documented By: MARIELENA Melatonin (Melatonin 3 Mg Tablet) 6 mg PO BEDTIME PRN PRN Reason: Insomnia Midodrine (Midodrine Hcl 10 Mg Tablet) 10 mg PO TID [facility] Last Admin: 09/20/24 14:32 Dose: 10 mg Documented By: JUAN Mirtazapine (Mirtazapine 7.5 Mg Tablet) 7.5 mg PO BEDTIME [facility] Last Admin: 09/19/24 19:40 Dose: 7.5 mg Documented By: WILLIAM Multivitamins/Vitamin C (Multivitamin Tablet) 1 tab PO DAILY [facility] Last Admin: 09/20/24 08:13 Dose: 1 tab Documented By: MARIELENA Ondansetron HCl (Ondansetron Hcl 4 Mg/2 Ml Vial) 4 mg IVPUSH Q8H PRN PRN Reason: Nausea and Vomiting Pantoprazole Sodium (Pantoprazole Sodium 40 Mg/10 Ml Vial) 40 mg IVPUSH DAILY@0630 [facility] Last Admin: 09/20/24 05:58 Dose: 40 mg Documented By: WILLIAM Senna (Sennosides 8.6 Mg Tablet) 17.2 mg PO BEDTIME [facility] Last Admin: 09/19/24 19:40 Dose: 17.2 mg Documented By: WILLIAM Sodium Bicarbonate (Sodium Bicarbonate 650 Mg Tablet) 650 mg PO BID [facility] Last Admin: 09/20/24 08:13 Dose: 650 mg Documented By: MARIELENA Sodium Chloride (0.9 % Sodium Chloride Flush 3 Ml Syringe) 3 ml IVFLUSH QSHIFT [facility] Last Admin: 09/20/24 08:07 Dose: 3 ml Documented By: MARIELENA Comments: L upper extremity appears to be swollen and bruising noted from IV site to right below shoulder. arm is firm to touch Tamsulosin HCl (Tamsulosin Hcl 0.4 Mg Capsule) 0.8 mg PO DAILY [facility] Last Admin: 09/20/24 08:14 Dose: 0.8 mg Documented By: MARIELENA Labs 09/20/24 13:51 09/19/24 08:33 Labs: Laboratory Results - last 24 hr 09/19/24 09/19/24 09/20/24 13:23 21:30 01:43 POC Glucose 160 H Stool Occult Blood POSITIVE Blood Type O Positive Antibody Screen NEGATIVE Crossmatch See Detail 09/20/24 09/20/24 09/20/24 07:16 11:13 15:57 POC Glucose 95 114 178 H Stool Occult Blood Blood Type Antibody Screen Crossmatch Microbiology Microbiology Results: Microbiology 09/18/24 Unknown Urine Culture - Preliminary Urine Catheterized - Smith Catheter Staphylococcus aureus 09/18/24 15:38 Gram Stain - Final Abdominal Fluid Routine Culture - Final No growth after 2 days Anaerobic Culture - Preliminary No growth to date. Assessment and Plan (1) Ascites: Status: Acute Assessment and Plan: 69M PMH diabetes, coronary disease, cva with right hemiplegia, chronic indwelling Smith catheter, history of DVT, HCV cirrhosis with recurrent ascites, CKD 3, hyperlipidemia presented with abdominal distention, patient usually require paracentesis every 2 weeks and because he require BP monitoring after the paracentesis usually get admitted. No abdominal pain, no fever, no chills. Pt unable to provide HPI or PMH. Can answer yes/no questions. ED provider removed 9 L via paracentesis and blood pressure was noted to be in the high 80s systolic, heart rate 100. HCV cirrhosis with symptomatic ascites Status post 9.3 L paracentesis ine ED on 09/18/2024, no evidence of sbp bp improving ,added albumin and continue midodrine. added albumin Anemia/ on anticoagulation -H&H 7.07/17, patient is on Eliquis, H/H 2200 with type and screen received 2 prbc fobt positive ,h/h is still in 7.7 -PPI ordered -GI consult if indicated Hyperkalemia -5.8 and non hemolyzed specimen, 1 dose of Lokelma 10 mg provided hyperkalemia improved. Chronic Smith placement-urine appeared cloudy, checking UA with reflex-patient comes from a long-term care facility. Full Code monitoring of hypotension and iv albumin,anemia -need Gi eval and h/h as well as bp monitering Quality Stroke Does the patient have a stroke diagnosis?: No Reason for No Anti-thrombotic by Day Two: Contraindicated VTE Prior VTE?: No VTE Risk Level:: Medical - moderate - high VTE Device Contraindication: Treatment Not Tolerated VTE Drug Contraindication: N/A - Med Ordered
--- NOTE | 2024-09-20 17:12 | HO.WOUND ---
Addendum entered by Sharon Isaacs RN 09/23/24 10:28: 09/23/24 @[address] Soto at this time patient is set for d/c this afternoon after drainage - if he were to remain inpatient he should have Agility Bed Pulsate with bolsters ordered from [employer] at [phone]. Discussed with direct care nurse will place order and she will order should patient not discharge today. Original Note: Wound Consult: Initial 69yr old?male admitted to [facility] on 09/19/24 12:32 - See progress notes and H&P for detailed history.? Wound consult placed for sacrum.? Patient agreeable to assessment and photo documentation.? Sacrum Etiology: Unstageable Pressure injury??Present on Admission Wound Bed: adherent yellow slough granulation buds noted Edges: ? irregular [place] wound: ?MASD No Induration, Fluctuance or Warmth noted Goals of Treatment: ? TRiad and foam dressing off load pressure Recommendations: 1. Turn and Reposition every 2 hours and as needed for patient comfort.? Use pillows or wedges to support off loading positions. 2. Off Load all bony prominences with use of pillows and heel boots if needed.? Apply Preventative foams where needed. ? 3. Monitor for incontinence and moisture control, use barrier creams when needed for prevention and treatment. 4. Provide adequate and supplemental nutrition.? 5. Continue low air loss mattress. 6. When applicable maintain blood glucose levels per Providers order. Sacrum - Off Load Pressure with Q2 hr turns and use of pillows - Cleanse with PH balance spray or wipes, pat dry. ?Apply thin layer of Triad to wound bed. Do not remove all of paste between applications as this may cause further skin damage.? Cover with foam dressing to aid in off loading and protection from friction. Change every 3 days and PRN. Re-consult wound care Nurse for wound deterioration or wound changes.
[2024-09-20] MEDS: Albumin Human 25 % 50 ML 100 ML IV ×2 (18:02→18:32)
[2024-09-20] MEDS: Insulin Lispro 100 UNIT/ML 3 ML VIAL SUBCUT ×2 (18:02→23:01)
[2024-09-20 19:10] LABS: Hematocrit 21.3 % (42.0-52.0)
[2024-09-20 19:15] LABS: Hemoglobin 6.9 g/dl (14.0-18.0)
--- NOTE | 2024-09-20 19:18 | PM.EVENT ---
Event Note Date of Service: 09/20/24 Event Note: Lab reported drop in hemoglobin. Hemoglobin 6.9. Will order 1 unit PRBC. Patient does have history of cirrhosis. Also initiating IV Protonix b.i.d., IV octreotide and IV ceftriaxone (prophylaxis for SBP). Appreciate GI. Discontinue Eliquis. Time Spent With Patient Time: Total time managing care of this patient today ____ minutes.
--- NOTE | 2024-09-20 19:43 | PC.NURSE ---
0800 this RN went into patient room and noticed that the L arm was increasingly swollen and bruised. This RN removed the dressing that was covering the IV and sent a picture of the patient arm to the doctor. Patient had received 2 units of PRBC though the IV that was in the L upper arm. Patient arm was not warm, had good pulses and patient denied any pain to that arm. IV had positive blood return and was able to be flushed. Per MD removed the IV and look for new site. This RN was unable to get a peripheral IV and charge nurse attempted ultrasound IV x2 but unsuccessful. Previous IV in the L arm removed d/t leaking and fear of prior infiltration from blood products. MD notified that patient no longer had access, per MD reach out to ICU and ED to see if someone can place a line. 1600 ED MD was able to place an ultrasound guided 20g in the L upper arm, positive blood return and flushing well. L arm still significantly bruised and swollen, elevated on pillows. Patient states that he still has no pain in the arm and positive pulses.
[2024-09-20] MEDS: cefTRIAXone sodium 1 GM VIAL IVPUSH (19:46)
[2024-09-20] MEDS: Octreotide Acetate 100 MCG/ML AMPUL 50 MCG IVPUSH (19:46)
[2024-09-20] MEDS: Sennosides 8.6 MG TABLET 17.2 MG PO (20:06)
[2024-09-20] MEDS: Mirtazapine 7.5 MG TABLET PO (20:06)
[2024-09-20 20:37] LABS: Glucose, Whole Blood 162 mg/dL (60-115)
[2024-09-20] MEDS: Octreotide Acetate 500 MCG in 0.9 % Sodium Chloride 500 ML 50.1 MCG IVCONT (23:43)
[2024-09-21 04:00] VITALS: BP 100/60; PULSE 88; RESP 16; TEMP 36.7; O2SAT 95
[2024-09-21 05:20] VITALS: BMI 29.5
[2024-09-21] MEDS: Pantoprazole Sodium 40 MG/10 ML VIAL IVPUSH ×2 (05:58→16:30)
[2024-09-21 06:59] VITALS: BP 100/55; PULSE 83; RESP 15; TEMP 36.6; O2SAT 96
[2024-09-21 07:07] LABS: Glucose, Whole Blood 97 mg/dL (60-115)
--- NOTE | 2024-09-21 07:11 | P.CNGI_ITS ---
History of Present Illness Data of Consult Service Date: 09/21/24 Primary Care Provider: Bing Doan MD HPI Reason for consult: anemia 69M with hx of diabetes, coronary disease, CVA with right hemiplegia, chronic indwelling Smith catheter, history of DVT on Eliquis, HCV cirrhosis with ascites, CKD 3, UTI proteus, hyperlipidemia currently residing in a long-term care facility who I am seeing for assessment for anemia. Patient unable to provide meaningful hx due to his medical condition. he was admitted from care facility due to ascites and had 9 L removed with subsequent low BP requiring admission for observation. Apparently he gwts paracentesis every 2 weeks? unclear if he has GI care elsewhere He has chronic low HGB per chart review, no overt GI bleeding here at [facility]. He does have a large area of bruising on the left arm but per nurse aide not known how this occurred. Eliquis has been stopped just the other day or so . Review of Systems 2 Review of Systems: Yes Unobtainable due to mental condition and Unobtainable due to mental status PMFSH Past Medical History Medical History (Updated 09/21/24 @ 18:20 by Petra Yadav MD) Hypotension Chronic UTI (urinary tract infection) Anemia Coronary artery disease Depression Hyperlipidemia CKD (chronic kidney disease) CVA (cerebral vascular accident) Liver cirrhosis Diabetes mellitus Chronic indwelling Smith catheter Cirrhosis of liver with ascites Hepatitis C Family History Pertinent family history: unable to obtain Social History Social History Household Members: Other Household Members Other:: [facility] care facility Housing: Retirement Housing Other:: unknown, pt poor historian Do you presently have visiting nurse or other home services: Yes Unable to assess alcohol history related to: Unable to respond Alcohol intake: former Patient Tobacco Use Status: Former Tobacco user e-Cigarette/Vaping Use: Never Used Second Hand Smoke Exposure: No Use of substances other than those prescribed or required for medical reasons: No Currently Displaying Signs/Symptoms of Drug Intoxication Withdrawal: No Have you been hit, kicked, punched, or otherwise hurt by someone within the past year? If so, by whom?: No Is there a partner from a previous relationship who is making you feel unsafe now?: No Are you made to feel afraid or neglected: No Advance Directives: Yes Advance Directives on File: Yes Advance Directives Date on File: 07/22/24 Do you have a plan to hurt others: No Plan Recently lost weight without trying: Unsure Nutrition Risks: No Nutritional Risk service: No Travel History Ebola Risk: Travel/Contact With Anyone From Affected Area/s: No Has Patient Experienced Ebola Symptoms: No Meds Allergies Allergy/AdvReac Type Severity Reaction Status Date / Time No Known Allergies Allergy Verified 09/18/24 15:00 Active Medications: Current Medications Acetaminophen (Acetaminophen 325 Mg Tablet) 650 mg PO Q6H PRN PRN Reason: Fever Or Pain Artificial Tears (Artificial Tears 15 Ml Drops) 1 drop EYE-BOTH QID [facility] Last Admin: 09/20/24 20:09 Dose: 1 drop Atorvastatin Calcium (Atorvastatin Calcium 10 Mg Tablet) 10 mg PO DAILY [facility] Last Admin: 09/20/24 08:12 Dose: 10 mg Baclofen (Baclofen 10 Mg Tablet) 5 mg PO TID [facility] Last Admin: 09/20/24 20:06 Dose: 5 mg Bisacodyl (Bisacodyl 10 Mg Supp.Rect) 10 mg NV DAILY PRN PRN Reason: Constipation, 8 hrs after MOM Calcium Carbonate (Calcium Carbonate 750 Mg Tab.Chew) 750 mg PO Q4H PRN PRN Reason: Heartburn Ceftriaxone Sodium (Ceftriaxone Sodium 1 Gm Vial) 1 gm IVPUSH Q24H [facility] Last Admin: 09/20/24 19:46 Dose: 1 gm Collagenase (Collagenase Clostridium Hist. 30 Gm Tube) 1 appl TOPICAL DAILY [facility]; Protocol Last Admin: 09/20/24 08:45 Dose: 1 appl Dextrose (Dextrose 50 % 25 Gm/50 Ml Syringe) 25 gm IVPUSH Q15M PRN; Protocol PRN Reason: per Hypoglycemia Standing Ord. Escitalopram Oxalate (Escitalopram Oxalate 5 Mg Tablet) 5 mg PO DAILY [facility] Last Admin: 09/20/24 08:12 Dose: 5 mg Finasteride (Finasteride 5 Mg Tablet) 5 mg PO DAILY [facility] Last Admin: 09/20/24 08:12 Dose: 5 mg Folic Acid (Folic Acid 1 Mg Tablet) 1 mg PO DAILY [facility] Last Admin: 09/20/24 08:12 Dose: 1 mg Gabapentin (Gabapentin 100 Mg Capsule) 200 mg PO BID [facility] Last Admin: 09/20/24 20:06 Dose: 200 mg Glucose (Glucose Gel 15 Gm Gel..Gram.) 15 gm PO Q15M PRN; Protocol PRN Reason: per Hypoglycemia Standing Ord. Octreotide Acetate 500 mcg/ (Sodium Chloride) 501 mls @ 50.1 mls/hr IVCONT .Q10H [facility] Last Admin: 09/20/24 23:43 Dose: 50 mcg/hr, 50.1 mls/hr Insulin Human Lispro (Insulin Lispro 100 Unit/Ml 3 Ml Vial) 0 unit SUBCUT QIDACHS [facility]; Protocol Last Admin: 09/20/24 23:01 Dose: 2 unit Lactulose (Lactulose 20 Gm/30 Ml Solution) 10 gm PO Q12H PRN PRN Reason: Constipation Magnesium Hydroxide (Milk Of Magnesia 30 Ml Oral.Susp) 30 ml PO DAILY PRN PRN Reason: Constipation Magnesium Oxide (Magnesium Oxide 400 Mg Tablet) 400 mg PO DAILY [facility] Last Admin: 09/20/24 08:13 Dose: 400 mg Melatonin (Melatonin 3 Mg Tablet) 6 mg PO BEDTIME PRN PRN Reason: Insomnia Midodrine (Midodrine Hcl 10 Mg Tablet) 10 mg PO TID [facility] Last Admin: 09/20/24 20:08 Dose: Not Given Mirtazapine (Mirtazapine 7.5 Mg Tablet) 7.5 mg PO BEDTIME [facility] Last Admin: 09/20/24 20:06 Dose: 7.5 mg Multivitamins/Vitamin C (Multivitamin Tablet) 1 tab PO DAILY [facility] Last Admin: 09/20/24 08:13 Dose: 1 tab Ondansetron HCl (Ondansetron Hcl 4 Mg/2 Ml Vial) 4 mg IVPUSH Q8H PRN PRN Reason: Nausea and Vomiting Pantoprazole Sodium (Pantoprazole Sodium 40 Mg/10 Ml Vial) 40 mg IVPUSH BID@0630,1630 [facility] Last Admin: 09/21/24 05:58 Dose: 40 mg Senna (Sennosides 8.6 Mg Tablet) 17.2 mg PO BEDTIME [facility] Last Admin: 09/20/24 20:06 Dose: 17.2 mg Sodium Bicarbonate (Sodium Bicarbonate 650 Mg Tablet) 650 mg PO BID [facility] Last Admin: 09/20/24 20:06 Dose: 650 mg Sodium Chloride (0.9 % Sodium Chloride Flush 3 Ml Syringe) 3 ml IVFLUSH QSHIFT [facility] Last Admin: 09/20/24 19:51 Dose: 3 ml Tamsulosin HCl (Tamsulosin Hcl 0.4 Mg Capsule) 0.8 mg PO DAILY [facility] Last Admin: 09/20/24 08:14 Dose: 0.8 mg Home Medications ?Medication ?Instructions ?Recorded ?Confirmed ?Last Taken ?Type apixaban 5 mg tablet 5 mg PO BID 06/26/24 09/18/24 Unknown History atorvastatin 10 mg tablet 10 mg PO DAILY 06/26/24 09/18/24 Unknown History baclofen 5 mg tablet 5 mg PO TID 06/26/24 09/18/24 Unknown History bisacodyl 10 mg rectal suppository 10 mg NV DAILY PRN Constipation, 8 06/26/24 09/18/24 Unknown History hrs after MOM cholestyramine (with sugar) 4 gram 4 g PO DAILY 06/26/24 09/18/24 Unknown History oral powder finasteride 5 mg tablet 5 mg PO DAILY 06/26/24 09/18/24 Unknown History folic acid 1 mg tablet 1 mg PO DAILY 06/26/24 09/18/24 Unknown History gabapentin 100 mg capsule 200 mg PO BID 06/26/24 09/18/24 Unknown History magnesium hydroxide 400 mg/5 mL 30 ml PO DAILY PRN Constipation, 06/26/24 09/18/24 Unknown History oral suspension (Milk of Magnesia) use first magnesium oxide 400 mg PO DAILY 06/26/24 09/18/24 Unknown History midodrine 10 mg tablet 10 mg PO TID 06/26/24 09/18/24 Unknown History multivitamin 1 tab PO DAILY 06/26/24 09/18/24 Unknown History pantoprazole 20 mg tablet,delayed 20 mg PO DAILY@0630 06/26/24 09/18/24 Unknown History release sodium phosphates 19 gram-7 118 ml NV DAILY PRN Constipation,8 06/26/24 09/18/24 Unknown History gram/118 mL enema (Fleet Enema) hrs after bisacodyl tamsulosin 0.4 mg capsule (Flomax) 0.8 mg PO DAILY 06/26/24 09/18/24 Unknown History furosemide 20 mg tablet 10 mg PO DAILY 07/16/24 09/18/24 Unknown History lactulose 10 gram/15 mL oral 10 g PO Q12H PRN Constipation 08/06/24 09/18/24 Unknown History solution metformin 500 mg tablet 500 mg PO QPM 08/06/24 09/18/24 Unknown History spironolactone 25 mg tablet 12.5 mg PO DAILY 08/23/24 09/18/24 Unknown History acetaminophen 325 mg tablet 650 mg PO Q6H PRN Fever Or Pain 09/18/24 09/18/24 Unknown History carboxymethylcellulose sodium 1 % 1 drp ophthalmic (eye) QID 09/18/24 09/18/24 Unknown History eye drops (Artificial Tears (carboxymethylcellulose)) collagenase clostridium histo. 250 1 appl topical DAILY 09/18/24 09/18/24 Unknown History unit/gram topical ointment (Santyl) escitalopram oxalate 5 mg tablet 5 mg PO DAILY 09/18/24 09/18/24 Unknown History mirtazapine 7.5 mg tablet 7.5 mg PO BEDTIME 09/18/24 09/18/24 Unknown History Physical Exam 2 Vital Signs: Vital Signs: Last Vital Signs Temp 97.8 F 09/21/24 06:59 Pulse 83 09/21/24 06:59 Resp 15 09/21/24 06:59 BP 100/55 L 09/21/24 06:59 Pulse Ox 96 09/21/24 06:59 O2 Del Method Room Air 09/21/24 06:59 BMI result Body Mass Index 29.5 EXAM: GENERAL: The patient is frail, limited verbal output VITAL SIGNS:see workflow HEENT: Nonicteric sclerae, PERRLA, EOMI. Oropharynx clear. Moist mucous membranes. Conjunctivae appear well perfused. No thyroid mass. CHEST: Chest wall is nontender. HEART: Regular rate and rhythm without murmurs. LUNGS: Clear to auscultation bilaterally. ABDOMEN: Soft, positive bowel sounds, nontender, no organomegaly.no flank tenderness SKIN: large bruise covering upper arm and tracking to forearm. NEUROLOGIC: moving limbs spontaneously. awake, Psych: unable to assess Results Labs 09/21/24 08:50 09/21/24 08:50 Labs: Short CBC 09/20/24 09/20/24 Range/Units 13:51 18:31 Hgb 7.7 L 6.9 L* (14.0-18.0) g/dl Hct 24.7 L 21.3 L (42.0-52.0) % Microbiology Microbiology Results: Microbiology 04/27/25 Unknown Urine Catheterized - Smith Catheter Urine Culture - Preliminary Staphylococcus aureus 09/18/24 15:38 Abdominal Fluid Gram Stain - Final 09/18/24 15:38 Abdominal Fluid Routine Culture - Final No growth after 2 days 09/18/24 15:38 Abdominal Fluid Anaerobic Culture - Preliminary No growth to date. Assessment and Plan (1) Anemia: Qualifiers: Anemia type: unspecified type Qualified Code(s): D64.9 - Anemia, unspecified Status: Acute Plan 1/ Acute on chronic anemia, with large bruising left arm, has been on eliquis. Suspect this is the cause of his recent worsening anemia, may also have nutritional cause PLAN: 1/ Hold on EGD right now 2/ Hold eliquis and consider repeat imaging to see if DVT is resorbed now before recommencing. if still present maybe IVC filter 3/ check b12, folate, iron, hemolysis labs. 4/ can consider egd at future date 5/ pls check with faciltiiy if he has had egd elsewhere recently or has GI care elsewhere Procedures Date of Service Date of Service: 09/21/24
[2024-09-21] MEDS: Octreotide Acetate 500 MCG in 0.9 % Sodium Chloride 500 ML 50.1 MCG IVCONT ×2 (08:56→20:14)
[2024-09-21] MEDS: 0.9 % Sodium Chloride Flush 3 ML SYRINGE IVFLUSH ×2 (08:56→20:20)
[2024-09-21] MEDS: Sodium Bicarbonate 650 MG TABLET PO ×2 (08:57→20:14)
[2024-09-21] MEDS: Multivitamin TABLET 1 TAB PO (08:57)
[2024-09-21] MEDS: Gabapentin 100 MG CAPSULE 200 MG PO ×2 (08:57→20:14)
[2024-09-21] MEDS: Folic Acid 1 MG TABLET PO (08:57)
[2024-09-21] MEDS: Magnesium Oxide 400 MG TABLET PO (08:57)
[2024-09-21] MEDS: Tamsulosin HCL 0.4 MG CAPSULE 0.8 MG PO (08:57)
[2024-09-21] MEDS: Baclofen 10 MG TABLET 5 MG PO ×3 (08:57→20:14)
[2024-09-21] MEDS: Escitalopram Oxalate 5 MG TABLET PO (08:57)
[2024-09-21] MEDS: Atorvastatin Calcium 10 MG TABLET PO (08:57)
[2024-09-21] MEDS: Midodrine HCl 10 MG TABLET PO ×2 (08:57→16:30)
[2024-09-21] MEDS: Artificial Tears 15 ML DROPS 1 DROP EYE-BOTH ×4 (08:58→20:16)
[2024-09-21] MEDS: Finasteride 5 MG TABLET PO (08:58)
[2024-09-21] MEDS: Collagenase Clostridium Hist. 30 GM TUBE 1 APPL TOPICAL (08:58)
[2024-09-21 09:15] LABS: Hematocrit 26.4 % (42.0-52.0); Hemoglobin 8.4 g/dl (14.0-18.0); Mean Corpuscular HGB Conc 31.8 g/dl (31.0-36.0); Mean Corpuscular Hemoglobin 27.6 pg (27.0-33.0); Mean Corpuscular Volume 86.8 fL (80.0-98.0); Mean Platelet Volume 9.3 fL (9.4-12.4); Platelet Count 187 X10*3/uL (160-400); Red Blood Count 3.04 X10*6/uL (4.60-5.80); Red Cell Distribution Width 16.6 % (11.0-16.0); White Blood Count 4.3 X10*3/uL (4.8-10.8)
[2024-09-21 09:27] LABS: Anion Gap 12 (12-20); Blood Urea Nitrogen 36 mg/dL (9-16); Calcium 8.5 mg/dL (8.4-10.2); Carbon Dioxide 28 mmol/L (22-29); Chloride 102 mmol/L (96-108); Creatinine Clr Calc Pharmacy 71.7; Estimated Glomerular Filt Rate > 60; Glucose Random 108 mg/dL (60-115); Potassium 4.5 mmol/L (3.3-5.1); Sodium 137 mmol/L (135-145)
[2024-09-21 11:09] VITALS: BP 104/56; PULSE 85; RESP 16; TEMP 36.3; O2SAT 97
[2024-09-21 11:36] LABS: Glucose, Whole Blood 218 mg/dL (60-115)
[2024-09-21] MEDS: Insulin Lispro 100 UNIT/ML 3 ML VIAL SUBCUT ×2 (11:55→16:30)
--- NOTE | 2024-09-21 14:24 | MHC.CLN ---
F/U PO INTAKE 25 & 75% X2 MEALS DIET RX:2 G SODIUM PT RECEIVING ENSURE MAX BID TO PROMOTE WOUND HEALING SUPPLEMENT PROVIDES 300 KCALS, 60 G PROTEIN MONITOR PO INTAKE AND ENCOURAGE SUPPLEMENTS
[2024-09-21 15:31] VITALS: BP 113/74; PULSE 101; RESP 18; TEMP 37.2; O2SAT 95
[2024-09-21 16:13] LABS: Glucose, Whole Blood 165 mg/dL (60-115)
--- NOTE | 2024-09-21 16:19 | HO.PM.IMPN ---
Subjective Subjective Date of Service: 09/21/24 Interval History: anemia, fobt positive Review of Systems arm brusing left side similar. no overnight gross bleeding per staff /patient. Physical Exam Vital Signs: Vital Signs: Last Vital Signs Temp 98.9 F 09/21/24 15:31 Pulse 101 H 09/21/24 15:31 Resp 18 09/21/24 15:31 BP 113/74 09/21/24 15:31 Pulse Ox 95 09/21/24 15:31 O2 Del Method Room Air 09/21/24 15:31 BMI result Body Mass Index 29.5 General:no acute distress, frail, chronic ill appearing Resp: air entry fair ,no rales CVS: S1,S2,RRR GI: soft, non tender, non distended Neuro: motor grossly intact, alert ext -has edema left : Upper arm significant bruising/swellin Objective Data Active Medications Acetaminophen (Acetaminophen 325 Mg Tablet) 650 mg PO Q6H PRN PRN Reason: Fever Or Pain Artificial Tears (Artificial Tears 15 Ml Drops) 1 drop EYE-BOTH QID [facility] Last Admin: 09/21/24 11:55 Dose: 1 drop Documented By: NEREIDA Atorvastatin Calcium (Atorvastatin Calcium 10 Mg Tablet) 10 mg PO DAILY [facility] Last Admin: 09/21/24 08:57 Dose: 10 mg Documented By: NEREIDA Baclofen (Baclofen 10 Mg Tablet) 5 mg PO TID [facility] Last Admin: 09/21/24 08:57 Dose: 5 mg Documented By: NEREIDA Bisacodyl (Bisacodyl 10 Mg Supp.Rect) 10 mg IN DAILY PRN PRN Reason: Constipation, 8 hrs after MOM Calcium Carbonate (Calcium Carbonate 750 Mg Tab.Chew) 750 mg PO Q4H PRN PRN Reason: Heartburn Ceftriaxone Sodium (Ceftriaxone Sodium 1 Gm Vial) 1 gm IVPUSH Q24H [facility] Last Admin: 09/20/24 19:46 Dose: 1 gm Documented By: WILLIAM Collagenase (Collagenase Clostridium Hist. 30 Gm Tube) 1 appl TOPICAL DAILY [facility]; Protocol Last Admin: 09/21/24 08:58 Dose: 1 appl Documented By: NEREIDA Dextrose (Dextrose 50 % 25 Gm/50 Ml Syringe) 25 gm IVPUSH Q15M PRN; Protocol PRN Reason: per Hypoglycemia Standing Ord. Escitalopram Oxalate (Escitalopram Oxalate 5 Mg Tablet) 5 mg PO DAILY [facility] Last Admin: 09/21/24 08:57 Dose: 5 mg Documented By: NEREIDA Finasteride (Finasteride 5 Mg Tablet) 5 mg PO DAILY [facility] Last Admin: 09/21/24 08:58 Dose: 5 mg Documented By: NEREIDA Folic Acid (Folic Acid 1 Mg Tablet) 1 mg PO DAILY [facility] Last Admin: 09/21/24 08:57 Dose: 1 mg Documented By: NEREIDA Gabapentin (Gabapentin 100 Mg Capsule) 200 mg PO BID [facility] Last Admin: 09/21/24 08:57 Dose: 200 mg Documented By: NEREIDA Glucose (Glucose Gel 15 Gm Gel..Gram.) 15 gm PO Q15M PRN; Protocol PRN Reason: per Hypoglycemia Standing Ord. Octreotide Acetate 500 mcg/ (Sodium Chloride) 501 mls @ 50.1 mls/hr IVCONT .Q10H [facility] Last Admin: 09/21/24 08:56 Dose: 50 mcg/hr, 50.1 mls/hr Documented By: NEREIDA Insulin Human Lispro (Insulin Lispro 100 Unit/Ml 3 Ml Vial) 0 unit SUBCUT QIDACHS [facility]; Protocol Last Admin: 09/21/24 11:55 Dose: 4 unit Documented By: NEREIDA Lactulose (Lactulose 20 Gm/30 Ml Solution) 10 gm PO Q12H PRN PRN Reason: Constipation Magnesium Hydroxide (Milk Of Magnesia 30 Ml Oral.Susp) 30 ml PO DAILY PRN PRN Reason: Constipation Magnesium Oxide (Magnesium Oxide 400 Mg Tablet) 400 mg PO DAILY [facility] Last Admin: 09/21/24 08:57 Dose: 400 mg Documented By: NEREIDA Melatonin (Melatonin 3 Mg Tablet) 6 mg PO BEDTIME PRN PRN Reason: Insomnia Midodrine (Midodrine Hcl 10 Mg Tablet) 10 mg PO TID [facility] Last Admin: 09/21/24 08:57 Dose: 10 mg Documented By: NEREIDA Mirtazapine (Mirtazapine 7.5 Mg Tablet) 7.5 mg PO BEDTIME [facility] Last Admin: 09/20/24 20:06 Dose: 7.5 mg Documented By: WILLIAM Multivitamins/Vitamin C (Multivitamin Tablet) 1 tab PO DAILY [facility] Last Admin: 09/21/24 08:57 Dose: 1 tab Documented By: NEREIDA Ondansetron HCl (Ondansetron Hcl 4 Mg/2 Ml Vial) 4 mg IVPUSH Q8H PRN PRN Reason: Nausea and Vomiting Pantoprazole Sodium (Pantoprazole Sodium 40 Mg/10 Ml Vial) 40 mg IVPUSH BID@0630,1630 [facility] Last Admin: 09/21/24 05:58 Dose: 40 mg Documented By: WILLIAM Senna (Sennosides 8.6 Mg Tablet) 17.2 mg PO BEDTIME [facility] Last Admin: 09/20/24 20:06 Dose: 17.2 mg Documented By: WILLIAM Sodium Bicarbonate (Sodium Bicarbonate 650 Mg Tablet) 650 mg PO BID [facility] Last Admin: 09/21/24 08:57 Dose: 650 mg Documented By: NEREIDA Sodium Chloride (0.9 % Sodium Chloride Flush 3 Ml Syringe) 3 ml IVFLUSH QSHIFT [facility] Last Admin: 09/21/24 08:56 Dose: 3 ml Documented By: NEREIDA Tamsulosin HCl (Tamsulosin Hcl 0.4 Mg Capsule) 0.8 mg PO DAILY [facility] Last Admin: 09/21/24 08:57 Dose: 0.8 mg Documented By: NEREIDA Labs 09/21/24 08:50 09/21/24 08:50 Labs: Laboratory Results - last 24 hr 09/19/24 09/20/24 09/21/24 13:23 20:33 06:58 MCV MCH MCHC RDW Plt Count MPV Absolute Nucleated RBC Nucleated RBC % (auto) Anion Gap Estim Creat Clear Calc Estimated GFR POC Glucose 162 H 97 Random Glucose Calcium Blood Type O Positive Antibody Screen NEGATIVE Crossmatch See Detail 09/21/24 09/21/24 09/21/24 08:50 11:10 16:09 MCV 86.8 MCH 27.6 MCHC 31.8 RDW 16.6 H Plt Count 187 MPV 9.3 L Absolute Nucleated RBC 0.000 Nucleated RBC % (auto) 0.0 Anion Gap 12 Estim Creat Clear Calc 71.7 Estimated GFR > 60 POC Glucose 218 H 165 H Random Glucose 108 Calcium 8.5 D Blood Type Antibody Screen Crossmatch Microbiology Microbiology Results: Microbiology 09/18/24 15:38 Gram Stain - Final Abdominal Fluid Routine Culture - Final No growth after 2 days Anaerobic Culture - Preliminary No growth to date. 09/18/24 Unknown Urine Culture - Preliminary Urine Catheterized - Smith Catheter Methicillin Res Staph Aureus Enterococcus/Streptococcus sp Assessment and Plan (1) Ascites: Status: Acute (2) Hypotension: Status: Acute Assessment and Plan: 69M PMH diabetes, coronary disease, cva with right hemiplegia, chronic indwelling Smith catheter, history of DVT, HCV cirrhosis with recurrent ascites, CKD 3, hyperlipidemia presented with abdominal distention, patient usually require paracentesis every 2 weeks and because he require BP monitoring after the paracentesis usually get admitted. No abdominal pain, no fever, no chills. Pt unable to provide HPI or PMH. Can answer yes/no questions. ED provider removed 9 L via paracentesis and blood pressure was noted to be in the high 80s systolic, heart rate 100. HCV cirrhosis with symptomatic ascites Status post 9.3 L paracentesis ine ED on 09/18/2024, no evidence of sbp bp improving ,added albumin and continue midodrine. added albumin Anemia/ on anticoagulation -H&H 7.07/17, patient is on Eliquis, H/H 2200 with type and screen received 3 prbc fobt positive ,h/h is8.4 continue ppi/ceftriaxone/octreotide moniter h/h closely Gi eval. -PPI ordered -GI consult if indicated Hyperkalemia given loklema andhyperkalemia improved. history of DVT: hold eliquis due to anemia ( dvt was in ) Chronic Smith placement-urine appeared cloudy, checking UA with reflex-patient comes from a long-term care facility. Full Code monitoring of hypotension and iv albumin,anemia -need Gi eval and h/h as well as bp monitering Quality Stroke Does the patient have a stroke diagnosis?: No Reason for No Anti-thrombotic by Day Two: Contraindicated VTE Prior VTE?: No VTE Risk Level:: Medical - moderate - high VTE Device Contraindication: Treatment Not Tolerated VTE Drug Contraindication: N/A - Med Ordered
[2024-09-21] MEDS: Acetaminophen 325 MG TABLET 650 MG PO (16:29)
[2024-09-21 16:30] VITALS: BP 113/74
[2024-09-21 19:32] VITALS: BP 105/58; PULSE 98; RESP 18; TEMP 36.9; O2SAT 93
[2024-09-21] MEDS: cefTRIAXone sodium 1 GM VIAL IVPUSH (20:14)
[2024-09-21] MEDS: Mirtazapine 7.5 MG TABLET PO (20:14)
[2024-09-21] MEDS: Sennosides 8.6 MG TABLET 17.2 MG PO (20:15)
[2024-09-21 20:27] LABS: Glucose, Whole Blood 147 mg/dL (60-115)
[2024-09-22] VITALS (7 sets, daily range): BP systolic 93–112; BP diastolic 50–60; PULSE 85–100; RESP 14–18; TEMP 36.5–37; O2SAT 93–100
--- NOTE | 2024-09-22 00:12 | W.PM.IDCN ---
History of Present Illness Data of Consult Service Date: 09/21/24 Requesting physician: Anoop Soto Primary Care Provider: Bing Doan MD HPI Reason for consult: staph in urine He presents with weakness and fournd to have pyuria and bacteriuria. She has ascites and liver disease. He has chronic. Review of Systems Review of Systems: Yes all other systems are reviewed and are negative PMFSH Past Medical History Medical History Hypotension Chronic UTI (urinary tract infection) Anemia Coronary artery disease Depression Hyperlipidemia CKD (chronic kidney disease) CVA (cerebral vascular accident) Liver cirrhosis Diabetes mellitus Chronic indwelling Smith catheter Cirrhosis of liver with ascites Hepatitis C Social History Social History Household Members: Other Household Members Other:: nursing home care facility Housing: Longterm Housing Other:: unknown, pt poor historian Do you presently have visiting nurse or other home services: Yes Unable to assess alcohol history related to: Unable to respond Alcohol intake: former Patient Tobacco Use Status: Former Tobacco user e-Cigarette/Vaping Use: Never Used Second Hand Smoke Exposure: No Use of substances other than those prescribed or required for medical reasons: No Currently Displaying Signs/Symptoms of Drug Intoxication Withdrawal: No Have you been hit, kicked, punched, or otherwise hurt by someone within the past year? If so, by whom?: No Is there a partner from a previous relationship who is making you feel unsafe now?: No Are you made to feel afraid or neglected: No Advance Directives: Yes Advance Directives on File: Yes Advance Directives Date on File: 07/22/24 Do you have a plan to hurt others: No Plan Recently lost weight without trying: Unsure Nutrition Risks: No Nutritional Risk service: No Travel History Ebola Risk: Travel/Contact With Anyone From Affected Area/s: No Has Patient Experienced Ebola Symptoms: No Meds Allergies Allergy/AdvReac Type Severity Reaction Status Date / Time No Known Allergies Allergy Verified 09/18/24 15:00 Active Medications: Current Medications Acetaminophen (Acetaminophen 325 Mg Tablet) 650 mg PO Q6H PRN PRN Reason: Fever Or Pain Last Admin: 09/21/24 16:29 Dose: 650 mg Artificial Tears (Artificial Tears 15 Ml Drops) 1 drop EYE-BOTH QID [facility] Last Admin: 09/21/24 20:16 Dose: 1 drop Atorvastatin Calcium (Atorvastatin Calcium 10 Mg Tablet) 10 mg PO DAILY [facility] Last Admin: 09/21/24 08:57 Dose: 10 mg Baclofen (Baclofen 10 Mg Tablet) 5 mg PO TID [facility] Last Admin: 09/21/24 20:14 Dose: 5 mg Bisacodyl (Bisacodyl 10 Mg Supp.Rect) 10 mg MI DAILY PRN PRN Reason: Constipation, 8 hrs after MOM Calcium Carbonate (Calcium Carbonate 750 Mg Tab.Chew) 750 mg PO Q4H PRN PRN Reason: Heartburn Ceftriaxone Sodium (Ceftriaxone Sodium 1 Gm Vial) 1 gm IVPUSH Q24H [facility] Last Admin: 09/21/24 20:14 Dose: 1 gm Collagenase (Collagenase Clostridium Hist. 30 Gm Tube) 1 appl TOPICAL DAILY [facility]; Protocol Last Admin: 09/21/24 08:58 Dose: 1 appl Dextrose (Dextrose 50 % 25 Gm/50 Ml Syringe) 25 gm IVPUSH Q15M PRN; Protocol PRN Reason: per Hypoglycemia Standing Ord. Escitalopram Oxalate (Escitalopram Oxalate 5 Mg Tablet) 5 mg PO DAILY [facility] Last Admin: 09/21/24 08:57 Dose: 5 mg Finasteride (Finasteride 5 Mg Tablet) 5 mg PO DAILY [facility] Last Admin: 09/21/24 08:58 Dose: 5 mg Folic Acid (Folic Acid 1 Mg Tablet) 1 mg PO DAILY [facility] Last Admin: 09/21/24 08:57 Dose: 1 mg Gabapentin (Gabapentin 100 Mg Capsule) 200 mg PO BID [facility] Last Admin: 09/21/24 20:14 Dose: 200 mg Glucose (Glucose Gel 15 Gm Gel..Gram.) 15 gm PO Q15M PRN; Protocol PRN Reason: per Hypoglycemia Standing Ord. Octreotide Acetate 500 mcg/ (Sodium Chloride) 501 mls @ 50.1 mls/hr IVCONT .Q10H [facility] Last Admin: 09/21/24 20:14 Dose: 50 mcg/hr, 50.1 mls/hr Insulin Human Lispro (Insulin Lispro 100 Unit/Ml 3 Ml Vial) 0 unit SUBCUT QIDACHS [facility]; Protocol Last Admin: 09/21/24 20:15 Dose: Not Given Lactulose (Lactulose 20 Gm/30 Ml Solution) 10 gm PO Q12H PRN PRN Reason: Constipation Magnesium Hydroxide (Milk Of Magnesia 30 Ml Oral.Susp) 30 ml PO DAILY PRN PRN Reason: Constipation Magnesium Oxide (Magnesium Oxide 400 Mg Tablet) 400 mg PO DAILY [facility] Last Admin: 09/21/24 08:57 Dose: 400 mg Melatonin (Melatonin 3 Mg Tablet) 6 mg PO BEDTIME PRN PRN Reason: Insomnia Midodrine (Midodrine Hcl 10 Mg Tablet) 10 mg PO TID [facility] Last Admin: 09/21/24 20:15 Dose: Not Given Mirtazapine (Mirtazapine 7.5 Mg Tablet) 7.5 mg PO BEDTIME [facility] Last Admin: 09/21/24 20:14 Dose: 7.5 mg Multivitamins/Vitamin C (Multivitamin Tablet) 1 tab PO DAILY [facility] Last Admin: 09/21/24 08:57 Dose: 1 tab Ondansetron HCl (Ondansetron Hcl 4 Mg/2 Ml Vial) 4 mg IVPUSH Q8H PRN PRN Reason: Nausea and Vomiting Pantoprazole Sodium (Pantoprazole Sodium 40 Mg/10 Ml Vial) 40 mg IVPUSH BID@0630,1630 [facility] Last Admin: 09/21/24 16:30 Dose: 40 mg Senna (Sennosides 8.6 Mg Tablet) 17.2 mg PO BEDTIME [facility] Last Admin: 09/21/24 20:15 Dose: 17.2 mg Sodium Bicarbonate (Sodium Bicarbonate 650 Mg Tablet) 650 mg PO BID [facility] Last Admin: 09/21/24 20:14 Dose: 650 mg Sodium Chloride (0.9 % Sodium Chloride Flush 3 Ml Syringe) 3 ml IVFLUSH QSHIFT [facility] Last Admin: 09/21/24 20:20 Dose: 3 ml Tamsulosin HCl (Tamsulosin Hcl 0.4 Mg Capsule) 0.8 mg PO DAILY [facility] Last Admin: 09/21/24 08:57 Dose: 0.8 mg Home Medications ?Medication ?Instructions ?Recorded ?Confirmed ?Last Taken ?Type apixaban 5 mg tablet 5 mg PO BID 06/26/24 09/18/24 Unknown History atorvastatin 10 mg tablet 10 mg PO DAILY 06/26/24 09/18/24 Unknown History baclofen 5 mg tablet 5 mg PO TID 06/26/24 09/18/24 Unknown History bisacodyl 10 mg rectal suppository 10 mg MI DAILY PRN Constipation, 8 06/26/24 09/18/24 Unknown History hrs after MOM cholestyramine (with sugar) 4 gram 4 g PO DAILY 06/26/24 09/18/24 Unknown History oral powder finasteride 5 mg tablet 5 mg PO DAILY 06/26/24 09/18/24 Unknown History folic acid 1 mg tablet 1 mg PO DAILY 06/26/24 09/18/24 Unknown History gabapentin 100 mg capsule 200 mg PO BID 06/26/24 09/18/24 Unknown History magnesium hydroxide 400 mg/5 mL 30 ml PO DAILY PRN Constipation, 06/26/24 09/18/24 Unknown History oral suspension (Milk of Magnesia) use first magnesium oxide 400 mg PO DAILY 06/26/24 09/18/24 Unknown History midodrine 10 mg tablet 10 mg PO TID 06/26/24 09/18/24 Unknown History multivitamin 1 tab PO DAILY 06/26/24 09/18/24 Unknown History pantoprazole 20 mg tablet,delayed 20 mg PO DAILY@0630 06/26/24 09/18/24 Unknown History release sodium phosphates 19 gram-7 118 ml MI DAILY PRN Constipation,8 06/26/24 09/18/24 Unknown History gram/118 mL enema (Fleet Enema) hrs after bisacodyl tamsulosin 0.4 mg capsule (Flomax) 0.8 mg PO DAILY 06/26/24 09/18/24 Unknown History furosemide 20 mg tablet 10 mg PO DAILY 07/16/24 09/18/24 Unknown History lactulose 10 gram/15 mL oral 10 g PO Q12H PRN Constipation 08/06/24 09/18/24 Unknown History solution metformin 500 mg tablet 500 mg PO QPM 08/06/24 09/18/24 Unknown History spironolactone 25 mg tablet 12.5 mg PO DAILY 08/23/24 09/18/24 Unknown History acetaminophen 325 mg tablet 650 mg PO Q6H PRN Fever Or Pain 09/18/24 09/18/24 Unknown History carboxymethylcellulose sodium 1 % 1 drp ophthalmic (eye) QID 09/18/24 09/18/24 Unknown History eye drops (Artificial Tears (carboxymethylcellulose)) collagenase clostridium histo. 250 1 appl topical DAILY 09/18/24 09/18/24 Unknown History unit/gram topical ointment (Santyl) escitalopram oxalate 5 mg tablet 5 mg PO DAILY 09/18/24 09/18/24 Unknown History mirtazapine 7.5 mg tablet 7.5 mg PO BEDTIME 09/18/24 09/18/24 Unknown History Physical Exam Vital Signs: Vital Signs: Last Vital Signs Temp 98.4 F 09/21/24 19:32 Pulse 98 09/21/24 19:32 Resp 18 09/21/24 19:32 BP 105/58 L 09/21/24 19:32 Pulse Ox 93 09/21/24 19:32 O2 Del Method Room Air 09/21/24 19:32 BMI result Body Mass Index 29.5 Const: General: cooperative Orientation/consciousness: patient oriented x3 HEENT: Head: Yes normal to inspection Face and sinus: Yes normal facial exam Mouth: Normal oral and palatal mucosa present Teeth and gingiva: dentition normal Eyes: General: appearance normal, both eyes and all related structures Pupils: Equal, round and reactive pupils present Resp: Effort & Inspection: normal respiratory effort Cardio: Rate: regular rate Rhythm: regular rhythm GI: Palpation (GI): Soft to palpation and nontender : General: Yes no CVA tenderness Back/Spine/Pelvis: Back: no CVA tenderness Skin: General skin exam: no rashes or lesions noted Neuro: General: patient oriented x3 Cranial nerves: Yes CN's II-XII intact bilaterally and Yes Equal, round and reactive pupils present Extrem: General: Yes normal to inspection Psych: Appearance: grossly normal Results Labs 09/21/24 08:50 09/21/24 08:50 Labs: Short CBC 09/21/24 Range/Units 08:50 WBC 4.3 L (4.8-10.8) X10*3/uL Hgb 8.4 L D (14.0-18.0) g/dl Hct 26.4 L D (42.0-52.0) % Plt Count 187 (160-400) X10*3/uL BMP 09/21/24 08:50 Sodium 137 Potassium 4.5 Chloride 102 Carbon Dioxide 28 BUN 36 H Creatinine 1.08 Calcium 8.5 D Microbiology Microbiology Results: Microbiology 09/18/24 15:38 Abdominal Fluid Gram Stain - Final 09/18/24 15:38 Abdominal Fluid Routine Culture - Final No growth after 2 days 09/18/24 15:38 Abdominal Fluid Anaerobic Culture - Preliminary No growth to date. 09/18/24 Unknown Urine Catheterized - Smith Catheter Urine Culture - Preliminary Methicillin Res Staph Aureus Enterococcus/Streptococcus sp Assessment and Plan (1) Hypotension: Qualifiers: Hypotension type: hypotension due to hypovolemia Qualified Code(s): E86.1 - Hypovolemia Status: Acute Plan There is no signs sepsis at this time. No antibiotics,await cultures.
[2024-09-22 07:54] LABS: Glucose, Whole Blood 135 mg/dL (60-115)
[2024-09-22] MEDS: Octreotide Acetate 500 MCG in 0.9 % Sodium Chloride 500 ML 50.1 MCG IVCONT ×3 (08:20→23:42)
[2024-09-22] MEDS: Finasteride 5 MG TABLET PO (08:21)
[2024-09-22] MEDS: Escitalopram Oxalate 5 MG TABLET PO (08:21)
[2024-09-22] MEDS: Multivitamin TABLET 1 TAB PO (08:21)
[2024-09-22] MEDS: Tamsulosin HCL 0.4 MG CAPSULE 0.8 MG PO (08:21)
[2024-09-22] MEDS: Gabapentin 100 MG CAPSULE 200 MG PO ×2 (08:21→20:46)
[2024-09-22] MEDS: Magnesium Oxide 400 MG TABLET PO (08:21)
[2024-09-22] MEDS: Atorvastatin Calcium 10 MG TABLET PO (08:21)
[2024-09-22] MEDS: Folic Acid 1 MG TABLET PO (08:21)
[2024-09-22] MEDS: Sodium Bicarbonate 650 MG TABLET PO ×2 (08:21→20:46)
[2024-09-22] MEDS: Baclofen 10 MG TABLET 5 MG PO ×3 (08:21→20:46)
[2024-09-22] MEDS: Midodrine HCl 10 MG TABLET PO ×3 (08:21→20:46)
[2024-09-22] MEDS: 0.9 % Sodium Chloride Flush 3 ML SYRINGE IVFLUSH ×3 (08:22→20:47)
[2024-09-22] MEDS: Pantoprazole Sodium 40 MG/10 ML VIAL IVPUSH ×2 (08:25→18:19)
[2024-09-22] MEDS: Collagenase Clostridium Hist. 30 GM TUBE 1 APPL TOPICAL (08:26)
[2024-09-22] MEDS: Artificial Tears 15 ML DROPS 1 DROP EYE-BOTH ×4 (08:26→20:47)
[2024-09-22] MEDS: Albumin Human 25 % 100 ML IV ×2 (08:53→14:48)
[2024-09-22 11:41] LABS: Glucose, Whole Blood 247 mg/dL (60-115)
[2024-09-22 11:57] LABS: Iron 42 mcg/dL (45-160); Percent Iron Saturation 39 % (15-50); Total Iron Binding Capacity 108 mcg/dL (228-428); Unsaturated Iron Binding 66 ug/dL
[2024-09-22] MEDS: Insulin Lispro 100 UNIT/ML 3 ML VIAL SUBCUT ×3 (12:03→20:47)
[2024-09-22 13:37] LABS: Folate 15.4 ng/mL (> or = 4.0); Vitamin B12 346 pg/mL (200-900)
[2024-09-22 16:33] LABS: Glucose, Whole Blood 169 mg/dL (60-115)
--- NOTE | 2024-09-22 19:03 | P.PNIM_ITS ---
Subjective Subjective Date of Service: 09/22/24 Interval History: anemia Review of Systems arm brusing left side similar. Review of Systems: Yes all other systems are reviewed and are negative Physical Exam 2 Vital Signs: Vital Signs: Last Vital Signs Temp 97.9 F 09/22/24 16:00 Pulse 86 09/22/24 16:00 Resp 18 09/22/24 16:00 BP 93/58 L 09/22/24 16:00 Pulse Ox 96 09/22/24 16:00 O2 Del Method Room Air 09/22/24 16:00 BMI result Body Mass Index 29.5 General:no acute distress, frail, chronic ill appearing Resp: air entry fair ,no rales CVS: S1,S2,RRR GI: soft, non tender, non distended Neuro: motor grossly intact, alert ext -has edema left : Upper arm significant bruising/swellin Objective Data Active Medications Acetaminophen (Acetaminophen 325 Mg Tablet) 650 mg PO Q6H PRN PRN Reason: Fever Or Pain Last Admin: 09/21/24 16:29 Dose: 650 mg Documented By: NEREIDA Artificial Tears (Artificial Tears 15 Ml Drops) 1 drop EYE-BOTH QID [facility] Last Admin: 09/22/24 18:21 Dose: 1 drop Documented By: MEIR Atorvastatin Calcium (Atorvastatin Calcium 10 Mg Tablet) 10 mg PO DAILY [facility] Last Admin: 09/22/24 08:21 Dose: 10 mg Documented By: SHILPA Baclofen (Baclofen 10 Mg Tablet) 5 mg PO TID [facility] Last Admin: 09/22/24 14:48 Dose: 5 mg Documented By: SHILPA Bisacodyl (Bisacodyl 10 Mg Supp.Rect) 10 mg SD DAILY PRN PRN Reason: Constipation, 8 hrs after MOM Calcium Carbonate (Calcium Carbonate 750 Mg Tab.Chew) 750 mg PO Q4H PRN PRN Reason: Heartburn Ceftriaxone Sodium (Ceftriaxone Sodium 1 Gm Vial) 1 gm IVPUSH Q24H [facility] Last Admin: 09/21/24 20:14 Dose: 1 gm Documented By: WILLIAM Collagenase (Collagenase Clostridium Hist. 30 Gm Tube) 1 appl TOPICAL DAILY [facility]; Protocol Last Admin: 09/22/24 08:26 Dose: 1 appl Documented By: SHILPA Dextrose (Dextrose 50 % 25 Gm/50 Ml Syringe) 25 gm IVPUSH Q15M PRN; Protocol PRN Reason: per Hypoglycemia Standing Ord. Escitalopram Oxalate (Escitalopram Oxalate 5 Mg Tablet) 5 mg PO DAILY [facility] Last Admin: 09/22/24 08:21 Dose: 5 mg Documented By: SHILPA Finasteride (Finasteride 5 Mg Tablet) 5 mg PO DAILY [facility] Last Admin: 09/22/24 08:21 Dose: 5 mg Documented By: SHILPA Folic Acid (Folic Acid 1 Mg Tablet) 1 mg PO DAILY [facility] Last Admin: 09/22/24 08:21 Dose: 1 mg Documented By: SHILPA Gabapentin (Gabapentin 100 Mg Capsule) 200 mg PO BID [facility] Last Admin: 09/22/24 08:21 Dose: 200 mg Documented By: SHILPA Glucose (Glucose Gel 15 Gm Gel..Gram.) 15 gm PO Q15M PRN; Protocol PRN Reason: per Hypoglycemia Standing Ord. Octreotide Acetate 500 mcg/ (Sodium Chloride) 501 mls @ 50.1 mls/hr IVCONT .Q10H [facility] Last Admin: 09/22/24 12:03 Dose: 50 mcg/hr, 50.1 mls/hr Documented By: SHILPA Insulin Human Lispro (Insulin Lispro 100 Unit/Ml 3 Ml Vial) 0 unit SUBCUT QIDACHS [facility]; Protocol Last Admin: 09/22/24 18:21 Dose: 2 unit Documented By: FOSTEKMarshall Lactulose (Lactulose 20 Gm/30 Ml Solution) 10 gm PO Q12H PRN PRN Reason: Constipation Magnesium Hydroxide (Milk Of Magnesia 30 Ml Oral.Susp) 30 ml PO DAILY PRN PRN Reason: Constipation Magnesium Oxide (Magnesium Oxide 400 Mg Tablet) 400 mg PO DAILY [facility] Last Admin: 09/22/24 08:21 Dose: 400 mg Documented By: SHILPA Melatonin (Melatonin 3 Mg Tablet) 6 mg PO BEDTIME PRN PRN Reason: Insomnia Midodrine (Midodrine Hcl 10 Mg Tablet) 10 mg PO TID [facility] Last Admin: 09/22/24 14:48 Dose: 10 mg Documented By: SHILPA Mirtazapine (Mirtazapine 7.5 Mg Tablet) 7.5 mg PO BEDTIME [facility] Last Admin: 09/21/24 20:14 Dose: 7.5 mg Documented By: WILLIAM Multivitamins/Vitamin C (Multivitamin Tablet) 1 tab PO DAILY [facility] Last Admin: 09/22/24 08:21 Dose: 1 tab Documented By: SHILPA Ondansetron HCl (Ondansetron Hcl 4 Mg/2 Ml Vial) 4 mg IVPUSH Q8H PRN PRN Reason: Nausea and Vomiting Pantoprazole Sodium (Pantoprazole Sodium 40 Mg/10 Ml Vial) 40 mg IVPUSH BID@0630,1630 [facility] Last Admin: 09/22/24 18:19 Dose: 40 mg Documented By: MEIR Senna (Sennosides 8.6 Mg Tablet) 17.2 mg PO BEDTIME [facility] Last Admin: 09/21/24 20:15 Dose: 17.2 mg Documented By: WILLIMA Sodium Bicarbonate (Sodium Bicarbonate 650 Mg Tablet) 650 mg PO BID [facility] Last Admin: 09/22/24 08:21 Dose: 650 mg Documented By: SHILPA Sodium Chloride (0.9 % Sodium Chloride Flush 3 Ml Syringe) 3 ml IVFLUSH QSHIFT [facility] Last Admin: 09/22/24 18:27 Dose: 3 ml Documented By: MEIR Tamsulosin HCl (Tamsulosin Hcl 0.4 Mg Capsule) 0.8 mg PO DAILY [facility] Last Admin: 09/22/24 08:21 Dose: 0.8 mg Documented By: SHILPA Labs 09/21/24 08:50 09/21/24 08:50 Labs: Laboratory Results - last 24 hr 09/21/24 09/21/24 09/22/24 08:50 20:14 07:37 POC Glucose 147 H 135 H Iron 42 L TIBC 108 L % Saturation 39 Unsat Iron Binding 66 Vitamin B12 Folate 09/22/24 09/22/24 09/22/24 11:32 12:28 16:14 POC Glucose 247 H 169 H Iron TIBC % Saturation Unsat Iron Binding Vitamin B12 346 Folate 15.4 Microbiology Microbiology Results: Microbiology 09/18/24 15:38 Gram Stain - Final Abdominal Fluid Routine Culture - Final No growth after 2 days Anaerobic Culture - Preliminary No growth to date. 09/18/24 Unknown Urine Culture - Final Urine Catheterized - Smith Catheter Methicillin Res Staph Aureus Enterococcus faecalis Assessment and Plan (1) Ascites: Status: Acute (2) Hypotension: Status: Acute Assessment and Plan: 69M PMH diabetes, coronary disease, cva with right hemiplegia, chronic indwelling Smith catheter, history of DVT, HCV cirrhosis with recurrent ascites, CKD 3, hyperlipidemia presented with abdominal distention, patient usually require paracentesis every 2 weeks and because he require BP monitoring after the paracentesis usually get admitted. No abdominal pain, no fever, no chills. Pt unable to provide HPI or PMH. Can answer yes/no questions. ED provider removed 9 L via paracentesis and blood pressure was noted to be in the high 80s systolic, heart rate 100. HCV cirrhosis with symptomatic ascites Status post 9.3 L paracentesis ine ED on 09/18/2024, no evidence of sbp bp improving ,added albumin and continue midodrine. added albumin Anemia/ on anticoagulation -H&H 7.2, patient is on Eliquis, H/H 2200 with type and screen received 3 prbc fobt positive ,h/h is8.4 continue ppi/ceftriaxone/octreotide moniter h/h closely Gi eval noted -moniter h/h , no meme bleed,anemia workup. -PPI ordered -GI consult if indicated Hyperkalemia given loklema andhyperkalemia improved. history of DVT: hold eliquis due to anemia ( dvt was in ) repeat dvt studies -negative ,d/w vascular dr armas-will stop eliquis - considering already got above 3 months AC and also has anemia as well as Chronic Smith placement-urine appeared cloudy, checking UA with reflex-patient comes from a long-term care facility. Full Code monitoring of hypotension and iv albumin,anemia -need Gi eval and h/h as well as bp monitering Quality Stroke Does the patient have a stroke diagnosis?: No Reason for No Anti-thrombotic by Day Two: Contraindicated VTE Prior VTE?: No VTE Risk Level:: Medical - moderate - high VTE Device Contraindication: Treatment Not Tolerated VTE Drug Contraindication: N/A - Med Ordered
--- NOTE | 2024-09-22 19:32 | P.CDIM_ITS ---
PROVIDER RESPONSE TEXT: To clarify, the appropriate diagnosis supported by the clinical indicators: Acute blood loss anemia with baseline chronic anemia: acute blood loss on ch anemia QUERY TEXT: PHYSICIAN'S DOCUMENTATION REQUEST Date of Query: 09/22/2024 01:51 PM EDT Patient Name: Harley Aparicio Admit Date: 09/19/2024 Dear Anoop Soto MD, A review of the medical record indicates additional documentation may be needed. Please review below and update the documentation accordingly. Clinical Indicators: Per Gastroenterology consultation 09/21/24: Acute on chronic anemia, with large bruising left arm, has been on Eliquis. Suspect this is the cause of his recent worsening anemia Hold Eliquis Check for nutritional cause with labs Based on the above, could you clarify which of the following is the most likely type of anemia you ar e evaluating, treating, and/or monitoring? Acute blood loss anemia Acute blood loss anemia with baseline chronic anemia (specify type) Anemia of chronic disease indicate if neoplastic disease, CKD, or other Chronic iron deficiency anemia due to blood loss Vitamin B12 deficiency anemia indicate etiology, such as intrinsic factor deficiency, malabsorption, transcobalamin II deficiency, dietary, etc Folate deficiency anemia indicate etiology, such as dietary, drug-induced, etc Protein deficiency anemia Other (explain) Clinically unable to determine (explain) Thank you, Sandra Marquez RN Use of terms such as suspected, likely, concern for, or probable (associated with a specific diagnosi s that is being evaluated, monitored, or treated as if it exists) are acceptable and can be coded in the inpatient se tting, when documented at the time of discharge. Please use your independent medical judgment in providing your response. THIS QUERY IS PART OF THE PERMANENT MEDICAL RECORD
[2024-09-22 20:08] LABS: Glucose, Whole Blood 183 mg/dL (60-115)
[2024-09-22] MEDS: Sennosides 8.6 MG TABLET 17.2 MG PO (20:46)
[2024-09-22] MEDS: Mirtazapine 7.5 MG TABLET PO (20:46)
[2024-09-22] MEDS: cefTRIAXone sodium 1 GM VIAL IVPUSH (20:47)
[2024-09-23] VITALS (8 sets, daily range): BP systolic 101–132; BP diastolic 51–108; PULSE 88–100; RESP 16–22; TEMP 36.6–36.9; O2SAT 92–95; BMI 34.3
[2024-09-23] MEDS: Pantoprazole Sodium 40 MG/10 ML VIAL IVPUSH (06:36)
[2024-09-23 07:19] LABS: Glucose, Whole Blood 148 mg/dL (60-115)
[2024-09-23] MEDS: Magnesium Oxide 400 MG TABLET PO (07:56)
[2024-09-23] MEDS: Baclofen 10 MG TABLET 5 MG PO ×3 (07:56→21:43)
[2024-09-23] MEDS: Tamsulosin HCL 0.4 MG CAPSULE 0.8 MG PO (07:56)
[2024-09-23] MEDS: Multivitamin TABLET 1 TAB PO (07:56)
[2024-09-23] MEDS: Gabapentin 100 MG CAPSULE 200 MG PO ×2 (07:57→21:42)
[2024-09-23] MEDS: Finasteride 5 MG TABLET PO (07:57)
[2024-09-23] MEDS: Atorvastatin Calcium 10 MG TABLET PO (07:57)
[2024-09-23] MEDS: Escitalopram Oxalate 5 MG TABLET PO (07:57)
[2024-09-23] MEDS: Folic Acid 1 MG TABLET PO (07:57)
[2024-09-23] MEDS: Sodium Bicarbonate 650 MG TABLET PO ×2 (07:57→21:42)
[2024-09-23] MEDS: Midodrine HCl 10 MG TABLET PO ×3 (07:57→21:42)
[2024-09-23] MEDS: 0.9 % Sodium Chloride Flush 3 ML SYRINGE IVFLUSH ×3 (07:58→23:54)
[2024-09-23] MEDS: Octreotide Acetate 500 MCG in 0.9 % Sodium Chloride 500 ML 50.1 MCG IVCONT (08:28)
[2024-09-23 10:06] LABS: Hematocrit 24.1 % (42.0-52.0); Hemoglobin 7.5 g/dl (14.0-18.0)
[2024-09-23] MEDS: Furosemide 20 MG TABLET PO (10:52)
[2024-09-23] MEDS: Artificial Tears 15 ML DROPS 1 DROP EYE-BOTH ×4 (10:53→21:44)
[2024-09-23] MEDS: Collagenase Clostridium Hist. 30 GM TUBE 1 APPL TOPICAL (10:53)
[2024-09-23] MEDS: Omeprazole 20 MG CAPSULE.DR PO (10:53)
[2024-09-23 11:17] LABS: Glucose, Whole Blood 187 mg/dL (60-115)
[2024-09-23] MEDS: Albumin Human 25 % 50 ML 100 ML IV ×2 (11:36→11:52)
[2024-09-23] MEDS: Insulin Lispro 100 UNIT/ML 3 ML VIAL SUBCUT ×2 (11:38→21:42)
--- NOTE | 2024-09-23 13:52 | MHC.CLN ---
F/U PO INTAKE 75-100% DIET RX:2 G SODIUM-RECOMMEND ADDING 2200DM DIET R/T DM PT RECEIVING ENSURE MAX BID TO PROMOTE WOUND HEALING SUPPLEMENT PROVIDES 300 KCALS, 60 G PROTEIN CONTINUE TO MONITOR PO INTAKE AND ENCOURAGE SUPPLEMENTS
[2024-09-23] MEDS: Lidocaine HCl 1 % MPF 5 ML VIAL SUBCUT (15:04)
--- NOTE | 2024-09-23 15:04 | MHC.CM.PN ---
Pt having paracentesis today, DCP is to return to [facility] tomorrow, ambulance is scheduled for 10:00am. Family has been notified, and [facility] will be sent to them.
[2024-09-23 15:38] LABS: Glucose, Whole Blood 152 mg/dL (60-115)
--- NOTE | 2024-09-23 16:52 | P.PNIM_ITS ---
Subjective Subjective Date of Service: 09/23/24 Interval History: acsitis ,anemia Review of Systems denies new c/o Review of Systems: Yes all other systems are reviewed and are negative Physical Exam 2 Vital Signs: Vital Signs: Last Vital Signs Temp 98.4 F 09/23/24 15:12 Pulse 91 09/23/24 15:12 Resp 16 09/23/24 15:12 BP 111/63 09/23/24 15:12 Pulse Ox 95 09/23/24 15:12 O2 Del Method Room Air 09/23/24 15:12 BMI result Body Mass Index 34.3 General:no acute distress, frail, chronic ill appearing Resp: air entry fair ,no rales CVS: S1,S2,RRR GI: soft, non tender, non distended Neuro: motor grossly intact, alert ext -has edema left : Upper arm significant bruisingimproving Objective Data Active Medications Acetaminophen (Acetaminophen 325 Mg Tablet) 650 mg PO Q6H PRN PRN Reason: Fever Or Pain Last Admin: 09/21/24 16:29 Dose: 650 mg Documented By: NEREIDA Artificial Tears (Artificial Tears 15 Ml Drops) 1 drop EYE-BOTH QID [facility] Last Admin: 09/23/24 12:54 Dose: 1 drop Documented By: SHILPA Atorvastatin Calcium (Atorvastatin Calcium 10 Mg Tablet) 10 mg PO DAILY [facility] Last Admin: 09/23/24 07:57 Dose: 10 mg Documented By: SHILPA Baclofen (Baclofen 10 Mg Tablet) 5 mg PO TID [facility] Last Admin: 09/23/24 15:27 Dose: 5 mg Documented By: SHILPA Bisacodyl (Bisacodyl 10 Mg Supp.Rect) 10 mg [place] DAILY PRN PRN Reason: Constipation, 8 hrs after MOM Calcium Carbonate (Calcium Carbonate 750 Mg Tab.Chew) 750 mg PO Q4H PRN PRN Reason: Heartburn Collagenase (Collagenase Clostridium Hist. 30 Gm Tube) 1 appl TOPICAL DAILY [facility]; Protocol Last Admin: 09/23/24 10:53 Dose: 1 appl Documented By: SHILPA Dextrose (Dextrose 50 % 25 Gm/50 Ml Syringe) 25 gm IVPUSH Q15M PRN; Protocol PRN Reason: per Hypoglycemia Standing Ord. Escitalopram Oxalate (Escitalopram Oxalate 5 Mg Tablet) 5 mg PO DAILY [facility] Last Admin: 09/23/24 07:57 Dose: 5 mg Documented By: SHILPA Finasteride (Finasteride 5 Mg Tablet) 5 mg PO DAILY [facility] Last Admin: 09/23/24 07:57 Dose: 5 mg Documented By: SHILPA Folic Acid (Folic Acid 1 Mg Tablet) 1 mg PO DAILY [facility] Last Admin: 09/23/24 07:57 Dose: 1 mg Documented By: SHILPA Furosemide (Furosemide 20 Mg Tablet) 20 mg PO DAILY [facility]; Protocol Last Admin: 09/23/24 10:52 Dose: 20 mg Documented By: SHILPA Gabapentin (Gabapentin 100 Mg Capsule) 200 mg PO BID [facility] Last Admin: 09/23/24 07:57 Dose: 200 mg Documented By: SHILPA Glucose (Glucose Gel 15 Gm Gel..Gram.) 15 gm PO Q15M PRN; Protocol PRN Reason: per Hypoglycemia Standing Ord. Insulin Human Lispro (Insulin Lispro 100 Unit/Ml 3 Ml Vial) 0 unit SUBCUT QIDACHS [facility]; Protocol Last Admin: 09/23/24 15:46 Dose: Not Given Documented By: SHILPA Non-Admin Reason: No Insulin Coverage Lactulose (Lactulose 20 Gm/30 Ml Solution) 10 gm PO Q12H PRN PRN Reason: Constipation Magnesium Hydroxide (Milk Of Magnesia 30 Ml Oral.Susp) 30 ml PO DAILY PRN PRN Reason: Constipation Magnesium Oxide (Magnesium Oxide 400 Mg Tablet) 400 mg PO DAILY [facility] Last Admin: 09/23/24 07:56 Dose: 400 mg Documented By: SHILPA Melatonin (Melatonin 3 Mg Tablet) 6 mg PO BEDTIME PRN PRN Reason: Insomnia Midodrine (Midodrine Hcl 10 Mg Tablet) 10 mg PO TID [facility] Last Admin: 09/23/24 15:27 Dose: 10 mg Documented By: SHILPA Mirtazapine (Mirtazapine 7.5 Mg Tablet) 7.5 mg PO BEDTIME [facility] Last Admin: 09/22/24 20:46 Dose: 7.5 mg Documented By: GABY Multivitamins/Vitamin C (Multivitamin Tablet) 1 tab PO DAILY [facility] Last Admin: 09/23/24 07:56 Dose: 1 tab Documented By: SHILPA Omeprazole (Omeprazole 20 Mg Capsule.) 20 mg PO DAILY@0630 [facility] Last Admin: 09/23/24 10:53 Dose: 20 mg Documented By: SHILPA Ondansetron HCl (Ondansetron Hcl 4 Mg/2 Ml Vial) 4 mg IVPUSH Q8H PRN PRN Reason: Nausea and Vomiting Senna (Sennosides 8.6 Mg Tablet) 17.2 mg PO BEDTIME [facility] Last Admin: 09/22/24 20:46 Dose: 17.2 mg Documented By: GABY Sodium Bicarbonate (Sodium Bicarbonate 650 Mg Tablet) 650 mg PO BID [facility] Last Admin: 09/23/24 07:57 Dose: 650 mg Documented By: SHILPA Sodium Chloride (0.9 % Sodium Chloride Flush 3 Ml Syringe) 3 ml IVFLUSH QSHIFT [facility] Last Admin: 09/23/24 07:58 Dose: 3 ml Documented By: SHILPA Tamsulosin HCl (Tamsulosin Hcl 0.4 Mg Capsule) 0.8 mg PO DAILY [facility] Last Admin: 09/23/24 07:56 Dose: 0.8 mg Documented By: SHILPA Labs 09/23/24 09:56 09/21/24 08:50 Labs: Laboratory Results - last 24 hr 09/22/24 09/23/24 09/23/24 20:04 07:13 11:13 POC Glucose 183 H 148 H 187 H 09/23/24 15:33 POC Glucose 152 H Microbiology Microbiology Results: Microbiology 09/18/24 15:38 Gram Stain - Final Abdominal Fluid Routine Culture - Final No growth after 2 days Anaerobic Culture - Final NO GROWTH AFTER 5 DAYS Assessment and Plan (1) Ascites: Status: Acute (2) Hypotension: Status: Acute Assessment and Plan: 69M PMH diabetes, coronary disease, cva with right hemiplegia, chronic indwelling Smith catheter, history of DVT, HCV cirrhosis with recurrent ascites, CKD 3, hyperlipidemia presented with abdominal distention, patient usually require paracentesis every 2 weeks and because he require BP monitoring after the paracentesis usually get admitted. No abdominal pain, no fever, no chills. Pt unable to provide HPI or PMH. Can answer yes/no questions. ED provider removed 9 L via paracentesis and blood pressure was noted to be in the high 80s systolic, heart rate 100. HCV cirrhosis with symptomatic ascites Status post 9.3 L paracentesis ine ED on 09/18/2024, no evidence of sbp contnue albumin and continue midodrine. going for ascitis tap acute blood loss (left arm area)onch Anemia/ on anticoagulation -H&H 7.07/17, patient is on Eliquis, H/H 2200 with type and screen received 3 prbc fobt positive moniter h/h closely Gi eval and vascular -stop eliquis less likely gi bleed stopped octreotide and antibiotics, likely blood loss big eccymossis on left arm area on top of ch anemia . h/h stable betweem 7.5-8 range ppi Hyperkalemia given loklema and hyperkalemia improved. history of DVT: hold eliquis due to anemia ( dvt was in ) repeat dvt studies -negative ,d/w vascular dr armas-will stop eliquis - considering already got above 3 months AC and also has anemia as well as Chronic Smith placement-urine appeared cloudy, checking UA with reflex-patient comes from a long-term care facility. Full Code monitoring of hypotension and iv albumin,anemia -need Gi eval and h/h as well as bp monitering Quality Stroke Does the patient have a stroke diagnosis?: No Reason for No Anti-thrombotic by Day Two: Contraindicated VTE Prior VTE?: No VTE Risk Level:: Medical - moderate - high VTE Device Contraindication: Treatment Not Tolerated VTE Drug Contraindication: N/A - Med Ordered
[2024-09-23] MEDS: Albumin Human 25 % 100 ML 133.33 ML IV ×2 (17:21→18:45)
[2024-09-23 21:35] LABS: Glucose, Whole Blood 156 mg/dL (60-115)
[2024-09-23] MEDS: Sennosides 8.6 MG TABLET 17.2 MG PO (21:42)
[2024-09-23] MEDS: Mirtazapine 7.5 MG TABLET PO (21:42)
[2024-09-23] MEDS: Acetaminophen 325 MG TABLET 650 MG PO (21:42)
[2024-09-24 00:40] VITALS: BP 113/52; PULSE 79; RESP 16; TEMP 36.7; O2SAT 92
[2024-09-24 03:14] VITALS: BP 97/45; PULSE 83; RESP 16; TEMP 36.8; O2SAT 91
[2024-09-24] MEDS: Omeprazole 20 MG CAPSULE.DR PO (05:53)
[2024-09-24 06:00] VITALS: BMI 32.1
[2024-09-24 07:09] VITALS: BP 98/55; PULSE 80; RESP 18; TEMP 36.3; O2SAT 96
[2024-09-24 07:38] LABS: Glucose, Whole Blood 132 mg/dL (60-115)
--- NOTE | 2024-09-24 08:37 | HO.PM.IMPN ---
Subjective Subjective Date of Service: 09/24/24 Interval History: ascitis Review of Systems Review of Systems: Yes all other systems are reviewed and are negative Physical Exam Vital Signs: Vital Signs: Last Vital Signs Temp 97.4 F 09/24/24 07:09 Pulse 80 09/24/24 07:09 Resp 18 09/24/24 07:09 BP 98/55 L 09/24/24 07:09 Pulse Ox 96 09/24/24 07:09 O2 Del Method Room Air 09/24/24 07:09 BMI result Body Mass Index 32.1 Objective Data Active Medications Acetaminophen (Acetaminophen 325 Mg Tablet) 650 mg PO Q6H PRN PRN Reason: Fever Or Pain Last Admin: 09/23/24 21:42 Dose: 650 mg Documented By: TERRI Artificial Tears (Artificial Tears 15 Ml Drops) 1 drop EYE-BOTH QID [facility] Last Admin: 09/23/24 21:44 Dose: 1 drop Documented By: TERRI Atorvastatin Calcium (Atorvastatin Calcium 10 Mg Tablet) 10 mg PO DAILY [facility] Last Admin: 09/23/24 07:57 Dose: 10 mg Documented By: SHILPA Baclofen (Baclofen 10 Mg Tablet) 5 mg PO TID [facility] Last Admin: 09/23/24 21:43 Dose: 5 mg Documented By: TERRI Bisacodyl (Bisacodyl 10 Mg Supp.Rect) 10 mg IN DAILY PRN PRN Reason: Constipation, 8 hrs after MOM Calcium Carbonate (Calcium Carbonate 750 Mg Tab.Chew) 750 mg PO Q4H PRN PRN Reason: Heartburn Collagenase (Collagenase Clostridium Hist. 30 Gm Tube) 1 appl TOPICAL DAILY [facility]; Protocol Last Admin: 09/23/24 10:53 Dose: 1 appl Documented By: SHILPA Dextrose (Dextrose 50 % 25 Gm/50 Ml Syringe) 25 gm IVPUSH Q15M PRN; Protocol PRN Reason: per Hypoglycemia Standing Ord. Escitalopram Oxalate (Escitalopram Oxalate 5 Mg Tablet) 5 mg PO DAILY [facility] Last Admin: 09/23/24 07:57 Dose: 5 mg Documented By: SHILPA Finasteride (Finasteride 5 Mg Tablet) 5 mg PO DAILY [facility] Last Admin: 09/23/24 07:57 Dose: 5 mg Documented By: SHILPA Folic Acid (Folic Acid 1 Mg Tablet) 1 mg PO DAILY [facility] Last Admin: 09/23/24 07:57 Dose: 1 mg Documented By: SHILPA Gabapentin (Gabapentin 100 Mg Capsule) 200 mg PO BID [facility] Last Admin: 09/23/24 21:42 Dose: 200 mg Documented By: TERRI Glucose (Glucose Gel 15 Gm Gel..Gram.) 15 gm PO Q15M PRN; Protocol PRN Reason: per Hypoglycemia Standing Ord. Insulin Human Lispro (Insulin Lispro 100 Unit/Ml 3 Ml Vial) 0 unit SUBCUT QIDACHS [facility]; Protocol Last Admin: 09/23/24 21:42 Dose: 2 unit Documented By: TERRI Lactulose (Lactulose 20 Gm/30 Ml Solution) 10 gm PO Q12H PRN PRN Reason: Constipation Magnesium Hydroxide (Milk Of Magnesia 30 Ml Oral.Susp) 30 ml PO DAILY PRN PRN Reason: Constipation Magnesium Oxide (Magnesium Oxide 400 Mg Tablet) 400 mg PO DAILY [facility] Last Admin: 09/23/24 07:56 Dose: 400 mg Documented By: SHILPA Melatonin (Melatonin 3 Mg Tablet) 6 mg PO BEDTIME PRN PRN Reason: Insomnia Midodrine (Midodrine Hcl 10 Mg Tablet) 10 mg PO TID [facility] Last Admin: 09/23/24 21:42 Dose: 10 mg Documented By: TERRI Mirtazapine (Mirtazapine 7.5 Mg Tablet) 7.5 mg PO BEDTIME [facility] Last Admin: 09/23/24 21:42 Dose: 7.5 mg Documented By: TERRI Multivitamins/Vitamin C (Multivitamin Tablet) 1 tab PO DAILY [facility] Last Admin: 09/23/24 07:56 Dose: 1 tab Documented By: SHILPA Omeprazole (Omeprazole 20 Mg Capsule.) 20 mg PO DAILY@0630 [facility] Last Admin: 09/24/24 05:53 Dose: 20 mg Documented By: LILI Ondansetron HCl (Ondansetron Hcl 4 Mg/2 Ml Vial) 4 mg IVPUSH Q8H PRN PRN Reason: Nausea and Vomiting Senna (Sennosides 8.6 Mg Tablet) 17.2 mg PO BEDTIME [facility] Last Admin: 09/23/24 21:42 Dose: 17.2 mg Documented By: TERRI Sodium Bicarbonate (Sodium Bicarbonate 650 Mg Tablet) 650 mg PO BID [facility] Last Admin: 09/23/24 21:42 Dose: 650 mg Documented By: TERRI Sodium Chloride (0.9 % Sodium Chloride Flush 3 Ml Syringe) 3 ml IVFLUSH QSHIFT [facility] Last Admin: 09/23/24 23:54 Dose: 3 ml Documented By: LILI Tamsulosin HCl (Tamsulosin Hcl 0.4 Mg Capsule) 0.8 mg PO DAILY [facility] Last Admin: 09/23/24 07:56 Dose: 0.8 mg Documented By: NICOLEOTPAT Labs 09/23/24 09:56 09/21/24 08:50 Labs: Laboratory Results - last 24 hr 09/23/24 09/23/24 09/23/24 11:13 15:33 21:30 POC Glucose 187 H 152 H 156 H 09/24/24 07:35 POC Glucose 132 H Microbiology Microbiology Results: Microbiology 09/18/24 15:38 Gram Stain - Final Abdominal Fluid Routine Culture - Final No growth after 2 days Anaerobic Culture - Final NO GROWTH AFTER 5 DAYS Assessment and Plan (1) Ascites: Status: Acute (2) Hypotension: Status: Acute Assessment and Plan: 69M PMH diabetes, coronary disease, cva with right hemiplegia, chronic indwelling Smith catheter, history of DVT, HCV cirrhosis with recurrent ascites, CKD 3, hyperlipidemia presented with abdominal distention, patient usually require paracentesis every 2 weeks and because he require BP monitoring after the paracentesis usually get admitted. No abdominal pain, no fever, no chills. Pt unable to provide HPI or PMH. Can answer yes/no questions. ED provider removed 9 L via paracentesis and blood pressure was noted to be in the high 80s systolic, heart rate 100. HCV cirrhosis with symptomatic ascites Status post 9.3 L paracentesis ine ED on 09/18/2024, no evidence of sbp contnue albumin and continue midodrine. going for ascitis tap acute blood loss (left arm area)onch Anemia/ on anticoagulation -H&H 7.07/17, patient is on Eliquis, H/H 2200 with type and screen received 3 prbc fobt positive moniter h/h closely Gi eval and vascular -stop eliquis less likely gi bleed stopped octreotide and antibiotics, likely blood loss big eccymossis on left arm area on top of ch anemia . h/h stable betweem 7.5-8 range ppi Hyperkalemia given loklema and hyperkalemia improved. history of DVT: hold eliquis due to anemia ( dvt was in ) repeat dvt studies -negative ,d/w vascular dr armas-will stop eliquis -considering already got above 3 months AC and also has anemia as well as Chronic Smith placement-urine appeared cloudy, checking UA with reflex-patient comes from a long-term care facility. Full Code monitoring of hypotension and iv albumin,anemia -need Gi eval and h/h as well as bp monitering Quality Stroke Does the patient have a stroke diagnosis?: No Reason for No Anti-thrombotic by Day Two: Contraindicated VTE Prior VTE?: No VTE Risk Level:: Medical - moderate - high VTE Device Contraindication: Treatment Not Tolerated VTE Drug Contraindication: N/A - Med Ordered
[2024-09-24] MEDS: Sodium Bicarbonate 650 MG TABLET PO (09:04)
[2024-09-24] MEDS: Folic Acid 1 MG TABLET PO (09:04)
[2024-09-24] MEDS: Atorvastatin Calcium 10 MG TABLET PO (09:04)
[2024-09-24] MEDS: Magnesium Oxide 400 MG TABLET PO (09:04)
[2024-09-24] MEDS: Midodrine HCl 10 MG TABLET PO (09:04)
[2024-09-24] MEDS: Gabapentin 100 MG CAPSULE 200 MG PO (09:04)
[2024-09-24] MEDS: Baclofen 10 MG TABLET 5 MG PO (09:04)
[2024-09-24] MEDS: Tamsulosin HCL 0.4 MG CAPSULE 0.8 MG PO (09:04)
[2024-09-24] MEDS: Multivitamin TABLET 1 TAB PO (09:04)
[2024-09-24] MEDS: Finasteride 5 MG TABLET PO (09:04)
[2024-09-24] MEDS: Escitalopram Oxalate 5 MG TABLET PO (09:04)
[2024-09-24] MEDS: 0.9 % Sodium Chloride Flush 3 ML SYRINGE IVFLUSH (09:07)
[2024-09-24] MEDS: Collagenase Clostridium Hist. 30 GM TUBE 1 APPL TOPICAL (09:07)
[2024-09-24] MEDS: Artificial Tears 15 ML DROPS 1 DROP EYE-BOTH (09:08)
[2024-09-24 09:32] LABS: Hematocrit 23.1 % (42.0-52.0); Hemoglobin 7.2 g/dl (14.0-18.0)
[2024-09-24 11:25] LABS: Glucose, Whole Blood 153 mg/dL (60-115)
[2024-09-24 11:34] VITALS: BP 97/56; PULSE 95; RESP 18; TEMP 36.9; O2SAT 92
--- NOTE | 2024-09-24 11:52 | MHC.CM.PN ---
Ambulance was rescheduled for a later time, per MD's request; they are on their way now. RN & MD are aware.
--- NOTE | 2024-09-24 12:10 | P.DS_ITS ---
DS: Providers Provider Date of Service: 09/24/24 Date of admission: 09/19/24 12:32 Date of discharge: 09/24/24 Primary care physician: Bing Doan MD Consults: 09/20/24 11:12 Consult to Wound Care Routine Reason for consultation: unstageable to the coccyx 09/20/24 16:38 Consult to Gastroenterology Routine Consulting Provider: [facility] [place] G[facility] Reason for consultation: anemia require prbc/fobt positive Has provider been notified: No 09/20/24 16:43 Consult to Infectious Diseases Routine Consulting Provider: [facility] [place] [facility] Reason for consultation: uti?staph Has provider been notified: No Attending physician on discharge: Anoop Soto Discharging clinician: Anoop Soto DS: Diagnosis Discharge Diagnosis (1) Ascites: Status: Acute (2) Hypotension: Status: Acute DS: Summary Hospital Course Hospital Course: HPI:69M PMH diabetes, coronary disease, CVA with right hemiplegia, chronic indwelling Smith catheter, history of DVT on Eliquis, HCV cirrhosis with ascites, CKD 3, UTI proteus, hyperlipidemia currently residing in a long-term care facility came in with worsening ascites and abdominal distension and underwent a paracentesis removing 9 L of abdominal fluid. Patient experienced hypotension, systolic in the high 80's and required 2 bags of albumin and emergency room requested admission for observation noting patient's low blood pressure. H/H 7.2/23, likely dilutional and pt has hx of low blood counts. K 5.8, non-hemolyzed sample. Patient is not able to provide any HPI but can follow commands and answer yes and no questions including no to chest pain, nausea, vomiting, abdominal pain or lower leg pain. Patient offers a yes to being hungry. Hospital course: 69M PMH diabetes, coronary disease, cva with right hemiplegia, chronic indwelling Smith catheter, history of DVT, HCV cirrhosis with recurrent ascites, CKD 3, hyperlipidemia presented with abdominal distention, patient usually require paracentesis every 2 weeks and because he require BP monitoring after the paracentesis usually get admitted. No abdominal pain, no fever, no chills. Pt unable to provide HPI or PMH. Can answer yes/no questions. ED provider removed 9 L via paracentesis and blood pressure was noted to be in the high 80s systolic, heart rate 100. HCV cirrhosis with symptomatic ascites: going for ascitis tap-Status post 9.3 L paracentesis ine ED on 09/18/2024, no evidence of sbp.on 09/23/24 ascitis tap: 5 liter removed. contnue lasix & midodrine. acute blood loss (left arm area)onch Anemia/ on anticoagulation -H&H 7.07/17, patient is on Eliquis, H/H 2200 with type and screen received 3 prbc ,fobt positive anemia workup -seems anemia of ch disease. less likely gi bleed stopped octreotide and antibiotics, likely blood loss big eccymossis on left arm area on top of ch anemia . h/h stable between 7-8 range,moniter cbc closely. continue ppi po 20 mg bid. Left upper extremity ecchymosis: likely due to iv infiltration. Area improved significantly Ultrasound reviewed-mild edema Above area of ecchymosis which is improving also. Monitor upper extremity closely. At present patient denies any pain or any weakness.no cellulitis Hyperkalemia:given loklema and hyperkalemia improved. history of DVT: hold eliquis due to anemia ( dvt was in ) repeat dvt studies -negative ,d/w vascular dr armas-will stop eliquis - considering already got above 3 months AC and also has anemia as well as Chronic Smith placement-ua and urine culture (mrsa/enterococus)reviewed by ID:likely colonisation/no antibiotics. sacrum: Unstageable Pressure injury??Present on Admission : Turn and Reposition every 2 hours and as needed for patient comfort.? Use pillows or wedges to support off loading positions. Off Load all bony prominences with use of pillows and heel boots if needed.? Apply Preventative foams where needed. ? Monitor for incontinence and moisture control, use barrier creams when needed for prevention and treatment. Provide adequate and supplemental nutrition.? When applicable maintain blood glucose levels per Providers order. Sacrum - Off Load Pressure with Q2 hr turns and use of pillows - Cleanse with PH balance spray or wipes, pat dry. ?Apply thin layer of Triad to wound bed. Do not remove all of paste between applications as this may cause further skin damage.? Cover with foam dressing to aid in off loading and protection from friction. Change every 3 days and PRN. Plan: off eliquis moniter cbc ,switched ppi bid. moniter renal functionand electrolytes closely. follow up with Gi outpatient(Dr Obando's office) or patient's GI. Assessment and plan coordination time spent 40 minute. Time Attestation Total time managing care of this patient today: 40 mintues. Discharge Coordination Time (in mins): 40 minute Quality: Safe Use of Opioids Does Pt have an Active Cancer Diagnosis on the Problem List?: No Quality: Stroke Does the patient have a stroke diagnosis?: No Physical Exam Vital Signs: Vital Signs: Last Vital Signs Temp 98.5 F 09/24/24 11:34 Pulse 95 09/24/24 11:34 Resp 18 09/24/24 11:34 BP 97/56 L 09/24/24 11:34 Pulse Ox 92 09/24/24 11:34 O2 Del Method Room Air 09/24/24 11:34 BMI result Body Mass Index 32.1 General:no acute distress, frail. Resp: air entry fair ,no rales CVS: S1,S2,RRR GI: soft, non tender, non distended Neuro: motor grossly intact, alert ext -mild edema left : Upper arm significant bruising/eccymosis improving significantly ,no pain DS: Data Data Completed and Pending Completed studies during hospitalization [Text1]: Procedures Drainage of Peritoneal Cavity, Percutaneous Approach (08/06/24) Introduction of Vasopressor into Peripheral Vein, Percutaneous Approach (07/16/24) Transfusion of Nonautologous Red Blood Cells into Peripheral Vein, Percutaneous Approach (07/16/24) Labs on day of discharge: Laboratory Results - last 24 hr 09/23/24 09/23/24 09/24/24 15:33 21:30 07:35 Hgb Hct POC Glucose 152 H 156 H 132 H 09/24/24 09/24/24 09:22 11:17 Hgb 7.2 L Hct 23.1 L POC Glucose 153 H Imaging Chest x-ray: Radiologist's impression: ITS Impressions Venous Duplex 09/22/24 09:37 IMPRESSION: No acute deep venous thrombosis involving the right lower extremity. Negative for DVT. Electronically signed by: Karl Dawkins MD 09/22/2024 11:17 AM EDT Paracentesis Ultrasound 09/23/24 14:00 Impression: Ultrasound-guided paracentesis as described above. No immediate complications left upper ext us: Impression: Left upper extremity edema /eccymosis Discharge Plan Discharge Anticipated Discharge Date/Time: 09/24/24 10:46 Patient Disposition: er [facility] Discharge Diagnosis: anemia ,ascitis ,hypotension Referrals: Physician,Unknown J [Physician] - 1 Week Discharge Medications: Continued multivitamin Tablet 1 tab PO DAILY atorvastatin 10 mg Tablet 10 mg PO DAILY magnesium hydroxide [Milk of Magnesia] 400 mg/5 mL Suspension 30 ml PO DAILY PRN (Reason: Constipation, use first) tamsulosin [Flomax] 0.4 mg Capsule 0.8 mg PO DAILY bisacodyl 10 mg Suppository 10 mg NE DAILY PRN (Reason: Constipation, 8 hrs after MOM) Fleet Enema 19-7 gram/118 mL Enema 118 ml NE DAILY PRN (Reason: Constipation,8 hrs after bisacodyl) folic acid 1 mg Tablet 1 mg PO DAILY gabapentin 100 mg Capsule 200 mg PO BID finasteride 5 mg Tablet 5 mg PO DAILY midodrine 10 mg Tablet 10 mg PO TID Rx Instructions: do not give last dose of day after 6PM or within 4 hrs of bedtime HOLD FOR SBP >120 cholestyramine (with sugar) 4 gram Powder 4 g PO DAILY Rx Instructions: administer w/meal; avoid other meds within 1hr before or 4-6hr after dose baclofen 5 mg Tablet 5 mg PO TID magnesium oxide 400 mg magnesium Tablet 400 mg PO DAILY sodium bicarbonate 650 mg Tablet 650 mg PO BID Qty: 180 0RF spironolactone 25 mg tablet 12.5 mg PO DAILY furosemide 20 mg Tablet 10 mg PO DAILY lactulose 10 gram/15 mL solution 10 g PO Q12H PRN (Reason: Constipation) metformin 500 mg Tablet 500 mg PO QPM acetaminophen 325 mg tablet 650 mg PO Q6H PRN (Reason: Fever Or Pain) Santyl 250 unit/gram ointment 1 appl topical DAILY Rx Instructions: Apply to coccyx and left buttock escitalopram oxalate 5 mg Tablet 5 mg PO DAILY mirtazapine 7.5 mg tablet 7.5 mg PO BEDTIME Artificial Tears (cmc) 1 % Drops 1 drp OPHTHALMIC (EYE) QID Rx Instructions: both eyes Changed pantoprazole 20 mg Tablet,Delayed Release (Dr/Ec) 20 mg PO BID Qty: 1 0RF Discontinued apixaban 5 mg Tablet 5 mg PO BID Discharge Orders: Discharge Order (Routine); Ordered 09/24/24 Ordered By: Anoop Soto Diet: Advance to usual diet Activity on Discharge: As tolerated Stand Alone Forms: Patient Portal Discharge page Print Language: Yoruba Activity Restrictions/Additional Instructions: sacrum: Unstageable Pressure injury??Present on Admission : Turn and Reposition every 2 hours and as needed for patient comfort.? Use pillows or wedges to support off loading positions. Off Load all bony prominences with use of pillows and heel boots if needed.? Apply Preventative foams where needed. ? Monitor for incontinence and moisture control, use barrier creams when needed for prevention and treatment. Provide adequate and supplemental nutrition.? When applicable maintain blood glucose levels per Providers order. Sacrum - Off Load Pressure with Q2 hr turns and use of pillows - Cleanse with PH balance spray or wipes, pat dry. ?Apply thin layer of Triad to wound bed. Do not remove all of paste between applications as this may cause further skin damage.? Cover with foam dressing to aid in off loading and protection from friction. Change every 3 days and PRN. Care Plan Goals: 69M PMH diabetes, coronary disease, cva with right hemiplegia, chronic indwellin g Smith catheter, history of DVT, HCV cirrhosis with recurrent ascites, CKD 3, hyperlipidemia presented with abdominal distention, patient usually require paracentesis every 2 weeks and because he require BP monitoring after the paracentesis usually get admitted. No abdominal pain, no fever, no chills. Pt unable to provide HPI or PMH. Can answer yes/no questions. ED provider removed 9 L via paracentesis and blood pressure was noted to be in the high 80s systolic, heart rate 100. HCV cirrhosis with symptomatic ascites: going for ascitis tap-Status post 9.3 L paracentesis ine ED on 09/18/2024, no evidence of sbp.on 09/23/24 ascitis tap: 5 liter removed. contnue lasix & midodrine. acute blood loss (left arm area)onch Anemia/ on anticoagulation -H&H 7.07/17, patient is on Eliquis, H/H 2200 with type and screen received 3 prbc ,fobt positive anemia workup -seems anemia of ch disease. less likely gi bleed stopped octreotide and antibiotics, likely blood loss big eccymossis on left arm area on top of ch anemia . h/h stable between 7-8 range,moniter cbc closely. continue ppi po 20 mg bid. Hyperkalemia:given loklema and hyperkalemia improved. history of DVT: hold eliquis due to anemia ( dvt was in ) repeat dvt studies -negative ,d/w vascular dr armas-will stop eliquis - considering already got above 3 months AC and also has anemia as well as Health Concerns: off eliquis moniter cbc ,switched ppi bid. moniter renal functionand electrolytes closely. follow up with Gi outpatient(Dr Obando's office) or patient's GI. Plan of Treatment: as above. Assessment: as above.
== END 2024-09-24 12:24 | disposition skilled nursing facility (03) | DRG 433 ==
LOC: HO.ED 16:08 → HO.EDOVER 16:33 → HO.IMC 19:48
PROVIDERS: Internal Medicine; Physician Assistant Surgical; Admitting Provider Nurse Practitioner Family; Emergency Provider Emergency Medicine; PCP Internal Medicine; Visit Provider Internal Medicine
DX: K74.69 Other cirrhosis of liver (principal); D62 Acute posthemorrhagic anemia; I69.351 Hemiplegia and hemiparesis following cerebral infarction affecting right dominant side; R18.8 Other ascites; N18.30 Chronic kidney disease, stage 3 unspecified; D63.1 Anemia in chronic kidney disease; E11.22 Type 2 diabetes mellitus with diabetic chronic kidney disease; N40.1 Benign prostatic hyperplasia with lower urinary tract symptoms; R33.8 Other retention of urine; I25.10 Atherosclerotic heart disease of native coronary artery without angina pectoris; I95.9 Hypotension, unspecified; R19.5 Other fecal abnormalities; L89.150 Pressure ulcer of sacral region, unstageable; E87.5 Hyperkalemia; E86.1 Hypovolemia; Z96.0 Presence of urogenital implants; Z86.718 Personal history of other venous thrombosis and embolism; Z87.891 Personal history of nicotine dependence; Z86.19 Personal history of other infectious and parasitic diseases; Z79.84 Long term (current) use of oral hypoglycemic drugs; Z79.01 Long term (current) use of anticoagulants; Z79.899 Other long term (current) drug therapy
CPT/HCPCS: 32555; 36415; 49083; 76882; 80048; 80053; 81001; 82140; 82272; 82607; 82746; 82947; 83540; 84132; 85014; 85018; 85025; 85027; 85610; 86850; 86900; 86901; 86923; 87070; 87073; 87086; 87088; 87186; 87205; 89051; 93971; 99222; 99285; J0696; J2003; J2354; J2470; P9016; P9047

== ENCOUNTER → 2024-09-18 16:18 | Outpatient (BNV) | payer MEDICARE, MEDICAID, SELFPAY | PROVIDERS: Admitting Provider Nurse Practitioner Family; Emergency Provider Emergency Medicine; Visit Provider Internal Medicine | DX: E86.1 Hypovolemia (principal); Z98.890 Other specified postprocedural states | CPT/HCPCS: 99222; 99499 ==

== ENCOUNTER 2024-09-19 12:32 | Outpatient (BNV) | payer MEDICARE, MEDICAID, SELFPAY | END 2024-09-20 16:55 | PROVIDERS: Admitting Provider Nurse Practitioner Family; Emergency Provider Emergency Medicine; PCP Internal Medicine; Visit Provider Radiology Diagnostic Radiology | DX: R22.32 Localized swelling, mass and lump, left upper limb (principal) | CPT/HCPCS: 76882 ==

== ENCOUNTER 2024-09-19 12:32 | Outpatient (BNV) | payer MEDICARE, MEDICAID, SELFPAY | END 2024-09-22 09:37 | PROVIDERS: Admitting Provider Nurse Practitioner Family; Emergency Provider Emergency Medicine; PCP Internal Medicine; Visit Provider Radiology Diagnostic Radiology | DX: R60.0 Localized edema (principal) | CPT/HCPCS: 93971 ==

== ENCOUNTER 2024-09-19 12:32 | Outpatient (BNV) | payer MEDICARE, MEDICAID, SELFPAY | END 2024-09-23 14:00 | PROVIDERS: Admitting Provider Nurse Practitioner Family; Emergency Provider Emergency Medicine; PCP Internal Medicine; Visit Provider Physician Assistant Surgical | DX: R18.8 Other ascites (principal) | CPT/HCPCS: 49083 ==

== ENCOUNTER → 2024-09-19 12:32 | Outpatient (BNV) | payer MEDICARE, MEDICAID, SELFPAY | PROVIDERS: Admitting Provider Nurse Practitioner Family; Emergency Provider Emergency Medicine; PCP Internal Medicine; Visit Provider Internal Medicine | DX: E86.1 Hypovolemia (principal) | CPT/HCPCS: 99222 ==

== ENCOUNTER → 2024-09-19 12:32 | Outpatient (BNV) | payer MEDICARE, MEDICAID, SELFPAY | PROVIDERS: Admitting Provider Nurse Practitioner Family; Emergency Provider Emergency Medicine; PCP Internal Medicine; Visit Provider Internal Medicine Gastroenterology | DX: D64.9 Anemia, unspecified (principal) | CPT/HCPCS: 99223 ==